=== PATIENT | female | born 1955 | race Caucasian/White ===

== ENCOUNTER 2020-04-19 09:01 | Outpatient (REF) | payer MEDICARE, SELFPAY ==
[2020-04-19 09:41] LABS: MANUAL DIFF FLAG NO
[2020-04-19 09:44] LABS: Basophils Absolute Auto 0.1 X10*3/uL (0.0-0.2); Basophils Percent Auto 1.3 % (0-2); Eosinophils Absolute Auto 0.2 X10*3/uL (0.0-0.4); Eosinophils Percent Auto 3.6 % (0-4); Hematocrit 40.7 % (37-47); Hemoglobin 13.3 g/dl (12.0-16.0); Imm Gran Abs Auto 0.01 X10*3/uL (0.00-0.03); Imm Gran Pct Auto 0.2 % (0.0-0.4); Lymphocytes Absolute Auto 0.8 X10*3/uL (1.2-4.9); Lymphocytes Percent Auto 16.8 % (20-40); Mean Corpuscular HGB Conc 32.7 g/dl (31.0-35.0); Mean Corpuscular Hemoglobin 32.5 pg (27.0-33.0); Mean Corpuscular Volume 99.5 fL (80-98); Mean Platelet Volume 10.4 fL (9.4-12.3); Monocytes Absolute Auto 0.4 X10*3/uL (0.1-1.2); Monocytes Percent Auto 8.5 % (2-11); Neutrophils Absolute Auto 3.3 X10*3/uL (2.0-8.3); Neutrophils Percent Auto 69.6 % (45-73); Platelet Count 285 X10*3/uL (160-400); Red Blood Count 4.09 X10*6/uL (4.20-5.50); Red Cell Distribution Width 13.3 % (11.0-16.0); White Blood Count 4.7 X10*3/uL (4.8-10.8)
[2020-04-19 10:47] LABS: Alanine Aminotransferase 12 U/L (0-31); Albumin Level 4.2 g/dL (3.5-5.0); Alkaline Phosphatase 90 U/L (39-117); Aspartate Amino Transferase 17 U/L (5-31); Bilirubin Direct 0.2 mg/dL (0.0-0.5); Bilirubin Total 0.4 mg/dL (0.0-1.0)
== END 2020-04-19 09:02 | disposition home or self-care (01) ==
LOC: HO.LABR 09:01
PROVIDERS: PCP Internal Medicine; Visit Provider Internal Medicine
DX: K50.80 Crohn's disease of both small and large intestine without complications (principal)
CPT/HCPCS: 36415; 80076; 85025

== ENCOUNTER → 2020-04-24 08:53 | Outpatient (BNVA) | payer MEDICARE, SELFPAY | PROVIDERS: PCP Internal Medicine; Referring Provider Internal Medicine; Visit Provider Urology | DX: N32.81 Overactive bladder (principal) | CPT/HCPCS: Q3014 ==

== ENCOUNTER 2020-05-15 10:43 | Outpatient (REF) | payer MEDICARE, SELFPAY ==
--- NOTE | 2020-05-15 | MM_ITS ---
EXAMINATION: MM SCREENING DIGITAL BREAST TOMOSYNTHESIS, BILATERAL CLINICAL INFORMATION: Screening. Asymptomatic. The lifetime risk of breast cancer based on the Tyrer-Cuzick Model is 4%. COMPARISON: Mammography: 04/04/2019, 03/11/2018, 03/06/2017, 02/26/2016 TECHNIQUE: Digital breast tomosynthesis is performed in both the craniocaudal and mediolateral oblique views along with computer-aided detection (CAD). Synthesized 2D images are generated from the tomosynthesis. FINDINGS: There are scattered areas of fibroglandular density (ACR BI-RADS breast composition Category b). There is fibronodular parenchymal pattern with some scattered stable asymmetries similar to prior exams. There is no developing density or interval mass or architectural abnormality. No abnormal calcifications. No significant changes from prior studies. MM/MM tomosynthesis screening BI IMPRESSION: No significant changes from prior studies. ASSESSMENT: BI-RADS 2: Benign RECOMMENDATION: Routine annual mammography screening. This patient's information was entered into a reminder system with a target due date for their next mammogram.
== END 2020-05-15 10:44 | disposition home or self-care (01) ==
LOC: HO.MAMMO 10:43
PROVIDERS: PCP Internal Medicine; Visit Provider Internal Medicine
DX: Z12.31 Encounter for screening mammogram for malignant neoplasm of breast (principal)
CPT/HCPCS: 77063; 77067

== ENCOUNTER 2020-08-01 08:03 | Outpatient (REF) | payer MEDICARE, SELFPAY ==
[2020-08-01 09:00] LABS: Basophils Absolute Auto 0.1 X10*3/uL (0.0-0.2); Basophils Percent Auto 0.9 % (0-2); Eosinophils Absolute Auto 0.1 X10*3/uL (0.0-0.4); Eosinophils Percent Auto 2.6 % (0-4); Hematocrit 38.5 % (37-47); Hemoglobin 12.8 g/dl (12.0-16.0); Imm Gran Abs Auto 0.01 X10*3/uL (0.00-0.03); Imm Gran Pct Auto 0.2 % (0.0-0.4); Lymphocytes Absolute Auto 0.7 X10*3/uL (1.2-4.9); Lymphocytes Percent Auto 12.2 % (20-40); MANUAL DIFF FLAG SCAN; Mean Corpuscular HGB Conc 33.2 g/dl (31.0-35.0); Mean Corpuscular Hemoglobin 34.4 pg (27.0-33.0); Mean Corpuscular Volume 103.5 fL (80-98); Mean Platelet Volume 10.3 fL (9.4-12.3); Monocytes Absolute Auto 0.5 X10*3/uL (0.1-1.2); Monocytes Percent Auto 8.4 % (2-11); Neutrophils Absolute Auto 4.1 X10*3/uL (2.0-8.3); Neutrophils Percent Auto 75.7 % (45-73); Platelet Count 274 X10*3/uL (160-400); Red Blood Count 3.72 X10*6/uL (4.20-5.50); Red Cell Distribution Width 13.2 % (11.0-16.0); SCAN SMEAR FLAG 1; White Blood Count 5.5 X10*3/uL (4.8-10.8)
[2020-08-01 09:31] LABS: Alanine Aminotransferase 9 U/L (0-31); Albumin Level 4.2 g/dL (3.5-5.0); Alkaline Phosphatase 100 U/L (39-117); Aspartate Amino Transferase 15 U/L (5-31); Bilirubin Direct 0.2 mg/dL (0.0-0.5); Bilirubin Total 0.5 mg/dL (0.0-1.0); Total Protein 6.7 g/dL (6.5-8.0)
[2020-08-01 09:42] LABS: SLIDE REVIEW VERIFIED
== END 2020-08-01 08:04 | disposition home or self-care (01) ==
LOC: HO.LABR 08:03
PROVIDERS: PCP Internal Medicine; Visit Provider Internal Medicine
DX: K50.80 Crohn's disease of both small and large intestine without complications (principal)
CPT/HCPCS: 36415; 80076; 85025

== ENCOUNTER 2020-10-01 08:54 | Outpatient (REF) | payer MEDICARE, SELFPAY ==
[2020-10-01 09:44] LABS: MANUAL DIFF FLAG NO
[2020-10-01 09:57] LABS: Basophils Absolute Auto 0.1 X10*3/uL (0.0-0.2); Basophils Percent Auto 1.5 % (0-2); Eosinophils Absolute Auto 0.2 X10*3/uL (0.0-0.4); Eosinophils Percent Auto 4.8 % (0-4); Hematocrit 39.6 % (37-47); Hemoglobin 13.1 g/dl (12.0-16.0); Imm Gran Abs Auto 0.02 X10*3/uL (0.00-0.03); Imm Gran Pct Auto 0.4 % (0.0-0.4); Lymphocytes Absolute Auto 0.9 X10*3/uL (1.2-4.9); Lymphocytes Percent Auto 17.9 % (20-40); Mean Corpuscular HGB Conc 33.1 g/dl (31.0-35.0); Mean Corpuscular Hemoglobin 33.6 pg (27.0-33.0); Mean Corpuscular Volume 101.5 fL (80-98); Mean Platelet Volume 10.1 fL (9.4-12.3); Monocytes Absolute Auto 0.5 X10*3/uL (0.1-1.2); Monocytes Percent Auto 10.8 % (2-11); Neutrophils Absolute Auto 3.1 X10*3/uL (2.0-8.3); Neutrophils Percent Auto 64.6 % (45-73); Platelet Count 300 X10*3/uL (160-400); Red Cell Distribution Width 13.2 % (11.0-16.0); White Blood Count 4.8 X10*3/uL (4.8-10.8)
[2020-10-01 10:16] LABS: Alanine Aminotransferase 11 U/L (0-31); Albumin Level 4.1 g/dL (3.5-5.0); Alkaline Phosphatase 95 U/L (39-117); Aspartate Amino Transferase 16 U/L (5-31); Bilirubin Direct 0.3 mg/dL (0.0-0.5); Bilirubin Total 0.6 mg/dL (0.0-1.0); Total Protein 6.7 g/dL (6.5-8.0)
== END 2020-10-01 08:55 | disposition home or self-care (01) ==
LOC: HO.LABR 08:54
PROVIDERS: PCP Internal Medicine; Visit Provider Internal Medicine
DX: K50.80 Crohn's disease of both small and large intestine without complications (principal)
CPT/HCPCS: 36415; 80076; 85025

== ENCOUNTER 2020-11-13 08:24 | Outpatient (REF) | payer MEDICARE, SELFPAY ==
--- NOTE | 2020-11-13 08:31 | ECG_ITS ---
Test Reason : PALPITATIONS Blood Pressure : / mmHG Vent. Rate : 079 BPM Atrial Rate : 079 BPM P-R Int : 176 ms QRS Dur : 076 ms QT Int : 378 ms P-R-T Axes : 068 046 060 degrees QTc Int : 433 ms Normal sinus rhythm Normal ECG No previous ECGs available Referred By: Tae Duarte Electronically Signed By:ANDRÉS BURNHAM
[2020-11-13 09:08] LABS: MANUAL DIFF FLAG NO
[2020-11-13 09:12] LABS: Basophils Absolute Auto 0.1 X10*3/uL (0.0-0.2); Basophils Percent Auto 1.1 % (0-2); Eosinophils Absolute Auto 0.2 X10*3/uL (0.0-0.4); Eosinophils Percent Auto 3.4 % (0-4); Hematocrit 38.2 % (37-47); Hemoglobin 12.9 g/dl (12.0-16.0); Imm Gran Abs Auto 0.02 X10*3/uL (0.00-0.03); Imm Gran Pct Auto 0.4 % (0.0-0.4); Lymphocytes Absolute Auto 0.7 X10*3/uL (1.2-4.9); Lymphocytes Percent Auto 14.3 % (20-40); Mean Corpuscular HGB Conc 33.8 g/dl (31.0-35.0); Mean Corpuscular Volume 100.8 fL (80-98); Mean Platelet Volume 10.2 fL (9.4-12.3); Monocytes Absolute Auto 0.4 X10*3/uL (0.1-1.2); Monocytes Percent Auto 8.6 % (2-11); Neutrophils Absolute Auto 3.4 X10*3/uL (2.0-8.3); Neutrophils Percent Auto 72.2 % (45-73); Platelet Count 290 X10*3/uL (160-400); Red Blood Count 3.79 X10*6/uL (4.20-5.50); Red Cell Distribution Width 13.8 % (11.0-16.0); White Blood Count 4.7 X10*3/uL (4.8-10.8)
[2020-11-13 09:24] LABS: Estimated Average Glucose 117 mg/dL; Hemoglobin A1C 129.8327 umol/L; Hemoglobin A1c % 5.7 %
[2020-11-13 09:52] LABS: Alanine Aminotransferase 12 U/L (0-31); Albumin Level 4.2 g/dL (3.5-5.0); Alkaline Phosphatase 84 U/L (39-117); Anion Gap 12 (12-20); Aspartate Amino Transferase 20 U/L (5-31); Bilirubin Total 0.6 mg/dL (0.0-1.0); Blood Urea Nitrogen 6 mg/dL (9-16); Calcium 9.2 mg/dL (8.4-10.2); Carbon Dioxide 26 mmol/L (22-29); Chloride 111 mmol/L (96-108); Cholesterol 133 mg/dL; Estimated Glomerular Filt Rate > 60; Glucose Random 94 mg/dL (60-115); HDL Cholesterol 70 mg/dL; LDL Cholesterol Calculated 50 mg/dl; Potassium 3.9 mmol/L (3.3-5.1); Sodium 145 mmol/L (135-145); Total Protein 6.5 g/dL (6.5-8.0); Triglycerides 68 mg/dL
[2020-11-13 10:02] LABS: Free T4 (Free Thyroxine) 0.85 ng/dL (0.71-1.85); Thyroid Stimulating Hormone 0.62 uIU/mL (0.32-4.0)
[2020-11-13 10:39] LABS: Vitamin B12 397 pg/mL (200-900)
[2020-11-13 10:51] LABS: Glucose Urine UA NEG (NEG); Leukocyte Esterase Urine 1+ (NEG); Nitrite Urine NEG (NEG); Specific Gravity - Urine 1.015 (1.005-1.025); Urine Blood 2+ (NEG); Urine Ketones NEG (NEG); Urine Protein NEG (NEG-TRACE)
[2020-11-13 10:54] LABS: Appearance Urine CLEAR; Color Urine YELLOW
[2020-11-13 11:21] LABS: Bacteria Urine 1+ /LPF; Calcium Oxalate Crystals Urine 1+ /LPF; Squamous Epithelial Cell Urine 1+ /LPF
== END 2020-11-13 08:25 | disposition home or self-care (01) ==
LOC: HO.LAB 08:24
PROVIDERS: PCP Internal Medicine; Visit Provider Internal Medicine
DX: R73.02 Impaired glucose tolerance (oral) (principal); R00.2 Palpitations; E78.00 Pure hypercholesterolemia, unspecified
CPT/HCPCS: 36415; 80053; 80061; 81001; 82306; 82607; 82746; 83036; 84439; 84443; 84550; 85025; 93005

== ENCOUNTER 2020-11-22 08:05 | Outpatient (REF) | payer MEDICARE, SELFPAY ==
--- NOTE | ~2020-11-22 | MM_ITS ---
EXAMINATION: BONE DENSITOMETRY CLINICAL INDICATION: Osteopenia. COMPARISON: Previous BD dated 07/16/2018 and baseline BD dated 09/29/2006. TECHNIQUE: Using a AudienceView DXA System (software version: 13.1) manufactured by [employer], dual-energy x-ray absorptiometry was performed of the lumbar spine and left hip. The images are of good technical quality. Summary results are attached. FINDINGS: AP SPINE L1-L4: Current: BMD 1.008 g/cm2, Z-score 0.5, T-score -1.4, osteopenia, 1.0% decrease from previous, 9.1% decrease from baseline (<5% change is not significant). Prior: BMD 1.018 g/cm2. Baseline: BMD 1.109 g/cm2. LEFT FEMUR, NECK: Current: BMD 0.714 g/cm2, Z-score -0.6, T-score -2.3, osteopenia. Prior: BMD 0.707 g/cm2. Baseline: BMD 0.847 g/cm2. LEFT FEMUR, TOTAL: Current: BMD 0.720 g/cm2, Z-score -0.8, T-score -2.3, osteopenia, 4.1% decrease from previous, 19.6% decrease from baseline (<5% change is not significant). Prior: BMD 0.751 g/cm2. Baseline: BMD 0.896 g/cm2. IDENTIFIED RISK FACTORS: Menopause, height loss, secondary osteoporosis, tobacco use (current smoker). HISTORY OF FRACTURE: None listed. MEDICATIONS: Calcium, vitamin D, Evista. MM/XR DEXA axial skeleton IMPRESSION: 1. DIAGNOSIS: Osteopenia based on the lowest T-score value of -2.3 in the femur neck and total femur applying World Health Organization criteria. 2. 10-YEAR FRACTURE RISK PREDICTION, FRAX: Major osteoporotic fracture (clinical spine, forearm, hip or shoulder) 12.9%. Hip fracture 4.2%. 3. Treatment Recommendations: NOF guidelines recommend consideration for treatment in postmenopausal women and men age 50 and older presenting with the following: -A hip or vertebral (clinical or morphometric) fracture. -T-score less than or equal to -2.5 at the femoral neck or spine after appropriate evaluation to exclude secondary causes. -Low bone mass at the hip or spine and a 10-year fracture probability by FRAX of greater than or equal to 3% for hip fracture or greater than or equal to 20% for major osteoporotic fracture based on the [place] adapted WHO algorithm. 4. Other Recommendations: All treatment decisions require clinical judgment and consideration of individual patient factors, including patient preferences, comorbidities, previous drug use, risk factors not captured in the FRAX model (e.g. frailty, falls, vitamin D deficiency, increased bone turnover, interval significant decline in bone density) and possible under or overestimation of fracture risk by FRAX. Additional medical evaluation for secondary cause of low bone mineral density may be appropriate. FUTURE SCAN RECOMMENDATION: People with diagnosed cases of osteoporosis or at high risk for fracture should have regular bone mineral density tests. For patients eligible for Medicare, routine testing is allowed once every 2 years. The testing frequency can be increased to one year for patients who have rapidly progressing disease, those who are receiving or discontinuing medical therapy to restore bone mass, or have additional risk factors.
== END 2020-11-22 08:06 | disposition home or self-care (01) ==
LOC: HO.MAMMO 08:05
PROVIDERS: Visit Provider Internal Medicine
DX: Z13.820 Encounter for screening for osteoporosis (principal); M85.89 Other specified disorders of bone density and structure, multiple sites; F17.200 Nicotine dependence, unspecified, uncomplicated; Z78.0 Asymptomatic menopausal state; Z79.899 Other long term (current) drug therapy
CPT/HCPCS: 77080

== ENCOUNTER 2021-01-04 08:19 | Outpatient (REF) | payer MEDICARE, SELFPAY ==
[2021-01-04 10:13] LABS: MANUAL DIFF FLAG NO
[2021-01-04 10:21] LABS: Basophils Absolute Auto 0.1 X10*3/uL (0.0-0.2); Basophils Percent Auto 1.6 % (0-2); Eosinophils Absolute Auto 0.2 X10*3/uL (0.0-0.4); Eosinophils Percent Auto 4.1 % (0-4); Hematocrit 39.1 % (37-47); Imm Gran Abs Auto 0.01 X10*3/uL (0.00-0.03); Imm Gran Pct Auto 0.2 % (0.0-0.4); Lymphocytes Percent Auto 19.8 % (20-40); Mean Corpuscular HGB Conc 33.2 g/dl (31.0-35.0); Mean Corpuscular Hemoglobin 34.1 pg (27.0-33.0); Mean Corpuscular Volume 102.6 fL (80-98); Mean Platelet Volume 10.8 fL (9.4-12.3); Monocytes Absolute Auto 0.5 X10*3/uL (0.1-1.2); Monocytes Percent Auto 9.3 % (2-11); Neutrophils Absolute Auto 3.2 X10*3/uL (2.0-8.3); Platelet Count 298 X10*3/uL (160-400); Red Blood Count 3.81 X10*6/uL (4.20-5.50); Red Cell Distribution Width 14.4 % (11.0-16.0); White Blood Count 4.9 X10*3/uL (4.8-10.8)
[2021-01-04 10:53] LABS: Alanine Aminotransferase 8 U/L (0-31); Albumin Level 4.1 g/dL (3.5-5.0); Alkaline Phosphatase 86 U/L (39-117); Aspartate Amino Transferase 14 U/L (5-31); Bilirubin Direct 0.2 mg/dL (0.0-0.5); Bilirubin Total 0.5 mg/dL (0.0-1.0); Total Protein 6.7 g/dL (6.5-8.0)
== END 2021-01-04 08:20 | disposition home or self-care (01) ==
LOC: HO.LABR 08:19
PROVIDERS: PCP Internal Medicine; Visit Provider Internal Medicine
DX: K50.80 Crohn's disease of both small and large intestine without complications (principal)
CPT/HCPCS: 36415; 80076; 85025

== ENCOUNTER 2021-02-05 09:31 | Outpatient (REF) | payer MEDICARE, SELFPAY ==
[2021-02-05 10:50] LABS: MANUAL DIFF FLAG NO
[2021-02-05 11:03] LABS: Basophils Absolute Auto 0.1 X10*3/uL (0.0-0.2); Basophils Percent Auto 1.6 % (0-2); Eosinophils Absolute Auto 0.2 X10*3/uL (0.0-0.4); Eosinophils Percent Auto 3.4 % (0-4); Hematocrit 38.5 % (37-47); Imm Gran Abs Auto 0.03 X10*3/uL (0.00-0.03); Imm Gran Pct Auto 0.6 % (0.0-0.4); Lymphocytes Absolute Auto 0.9 X10*3/uL (1.2-4.9); Lymphocytes Percent Auto 17.9 % (20-40); Mean Corpuscular HGB Conc 33.8 g/dl (31.0-35.0); Mean Corpuscular Hemoglobin 34.8 pg (27.0-33.0); Mean Corpuscular Volume 102.9 fL (80-98); Mean Platelet Volume 10.9 fL (9.4-12.3); Monocytes Absolute Auto 0.6 X10*3/uL (0.1-1.2); Monocytes Percent Auto 10.9 % (2-11); Neutrophils Absolute Auto 3.3 X10*3/uL (2.0-8.3); Neutrophils Percent Auto 65.6 % (45-73); Platelet Count 243 X10*3/uL (160-400); Red Blood Count 3.74 X10*6/uL (4.20-5.50); Red Cell Distribution Width 13.8 % (11.0-16.0)
[2021-02-05 11:44] LABS: Alanine Aminotransferase 10 U/L (0-31); Albumin Level 4.2 g/dL (3.5-5.0); Alkaline Phosphatase 83 U/L (39-117); Aspartate Amino Transferase 16 U/L (5-31); Bilirubin Direct 0.2 mg/dL (0.0-0.5); Bilirubin Total 0.5 mg/dL (0.0-1.0); Total Protein 6.7 g/dL (6.5-8.0)
[2021-02-05 12:35] LABS: Appearance Urine CLEAR; Color Urine YELLOW; Glucose Urine UA NEG (NEG); Leukocyte Esterase Urine TRACE (NEG); Nitrite Urine NEG (NEG); PH 5.5 (5.0-8.0); Specific Gravity - Urine <= 1.005 (1.005-1.025); Urine Blood 1+ (NEG); Urine Ketones NEG (NEG); Urine Protein NEG (NEG-TRACE)
[2021-02-05 13:03] LABS: Bacteria Urine 1+ /LPF; RBC Urine 0-2 /HPF (0); Squamous Epithelial Cell Urine TRACE /LPF
== END 2021-02-05 09:32 | disposition home or self-care (01) ==
LOC: HO.LABR 09:31
PROVIDERS: PCP Internal Medicine; Visit Provider Internal Medicine
DX: K50.80 Crohn's disease of both small and large intestine without complications (principal); R73.02 Impaired glucose tolerance (oral); E53.8 Deficiency of other specified B group vitamins
CPT/HCPCS: 36415; 80076; 81001; 85025

== ENCOUNTER 2021-03-07 12:43 | Outpatient (REF) | payer MEDICARE, SELFPAY ==
[2021-03-07 09:13] LABS: MANUAL DIFF FLAG NO
[2021-03-07 10:43] LABS: Basophils Absolute Auto 0.1 X10*3/uL (0.0-0.2); Basophils Percent Auto 1.6 % (0-2); Eosinophils Absolute Auto 0.2 X10*3/uL (0.0-0.4); Eosinophils Percent Auto 3.7 % (0-4); Hematocrit 38.4 % (37-47); Hemoglobin 12.8 g/dl (12.0-16.0); Imm Gran Abs Auto 0.02 X10*3/uL (0.00-0.03); Imm Gran Pct Auto 0.5 % (0.0-0.4); Lymphocytes Absolute Auto 0.6 X10*3/uL (1.2-4.9); Lymphocytes Percent Auto 13.5 % (20-40); Mean Corpuscular HGB Conc 33.3 g/dl (31.0-35.0); Mean Corpuscular Hemoglobin 34.7 pg (27.0-33.0); Mean Corpuscular Volume 104.1 fL (80-98); Mean Platelet Volume 10.6 fL (9.4-12.3); Monocytes Absolute Auto 0.5 X10*3/uL (0.1-1.2); Neutrophils Percent Auto 69.7 % (45-73); Platelet Count 250 X10*3/uL (160-400); Red Blood Count 3.69 X10*6/uL (4.20-5.50); Red Cell Distribution Width 13.7 % (11.0-16.0); White Blood Count 4.3 X10*3/uL (4.8-10.8)
[2021-03-07 10:53] LABS: Appearance Urine CLEAR; Color Urine YELLOW; Glucose Urine UA NEG (NEG); Leukocyte Esterase Urine NEG (NEG); Nitrite Urine NEG (NEG); Specific Gravity - Urine <= 1.005 (1.005-1.025); Urine Blood 2+ (NEG); Urine Ketones NEG (NEG); Urine Protein NEG (NEG-TRACE)
[2021-03-07 10:59] LABS: Alanine Aminotransferase 12 U/L (0-31); Albumin Level 4.2 g/dL (3.5-5.0); Alkaline Phosphatase 86 U/L (39-117); Aspartate Amino Transferase 17 U/L (5-31); Bilirubin Direct 0.3 mg/dL (0.0-0.5); Bilirubin Total 0.6 mg/dL (0.0-1.0); Total Protein 6.7 g/dL (6.5-8.0)
[2021-03-07 11:18] LABS: Mucus Urine TRACE /LPF; Squamous Epithelial Cell Urine TRACE /LPF; WBC Urine 0 /HPF (0-4)
[2021-03-07 11:41] LABS: Erythrocyte Sedimentation Rate 7 MM/HR (0-20)
== END 2021-03-07 12:44 | disposition home or self-care (01) ==
LOC: HO.LAB 12:43
PROVIDERS: PCP Internal Medicine; Visit Provider Internal Medicine
DX: K50.80 Crohn's disease of both small and large intestine without complications (principal)
CPT/HCPCS: 36415; 80076; 81001; 85025; 85652; 86140

== ENCOUNTER 2021-04-08 09:05 | Outpatient (REF) | payer MEDICARE, SELFPAY ==
[2021-04-08 09:36] LABS: MANUAL DIFF FLAG NO
[2021-04-08 10:31] LABS: Basophils Absolute Auto 0.1 X10*3/uL (0.0-0.2); Basophils Percent Auto 1.4 % (0-2); Eosinophils Absolute Auto 0.2 X10*3/uL (0.0-0.4); Eosinophils Percent Auto 3.2 % (0-4); Hematocrit 38.6 % (37.0-47.0); Hemoglobin 12.8 g/dl (12.0-16.0); Imm Gran Abs Auto 0.02 X10*3/uL (0.00-0.03); Imm Gran Pct Auto 0.3 % (0.0-0.4); Lymphocytes Absolute Auto 0.9 X10*3/uL (1.2-4.9); Mean Corpuscular HGB Conc 33.2 g/dl (31.0-35.0); Mean Corpuscular Volume 105.5 fL (80.0-98.0); Mean Platelet Volume 10.4 fL (9.4-12.3); Monocytes Absolute Auto 0.5 X10*3/uL (0.1-1.2); Monocytes Percent Auto 8.4 % (2-11); Neutrophils Absolute Auto 4.2 x10*3/uL (2.0-8.3); Neutrophils Percent Auto 71.7 % (45-73); Platelet Count 273 X10*3/uL (160-400); Red Blood Count 3.66 X10*6/uL (4.20-5.50); Red Cell Distribution Width 13.4 % (11.0-16.0); White Blood Count 5.9 X10*3/uL (4.8-10.8)
[2021-04-08 10:59] LABS: Alanine Aminotransferase 11 U/L (0-31); Alkaline Phosphatase 90 U/L (39-117); Aspartate Amino Transferase 16 U/L (5-31); Bilirubin Direct 0.2 mg/dL (0.0-0.5); Bilirubin Total 0.5 mg/dL (0.0-1.0); Total Protein 6.5 g/dL (6.5-8.0)
== END 2021-04-08 09:06 | disposition home or self-care (01) ==
LOC: HO.LABR 09:05
PROVIDERS: PCP Internal Medicine; Visit Provider Internal Medicine
DX: K50.80 Crohn's disease of both small and large intestine without complications (principal)
CPT/HCPCS: 36415; 80076; 85025

== ENCOUNTER 2021-04-30 10:03 | Outpatient (REF) | payer MEDICARE, SELFPAY ==
--- NOTE | ~2021-04-30 | CT_ITS ---
EXAMINATION: CT CHEST SCREENING CLINICAL INFORMATION: Nicotine dependence. COMPARISON: CT chest 01/25/2019 TECHNIQUE: Multidetector volumetric CT imaging of the chest is performed without contrast using low-dose technique. Additional 2-D coronal and sagittal reformatted images and axial 3-D maximum intensity projection (MIP) images are generated on the CT workstation. This CT examination was performed using dose optimization techniques as appropriate, variously including the following: *Automated exposure control *Adjustment of mA and/or kV according to patient size (this includes techniques or standardized protocols for targeted exams where dose is matched to indication/reason for exam; i.e. extremities or head) *Use of iterative reconstruction technique DLP: 39 mGy-cm FINDINGS: LUNGS: The lungs are expanded and clear of acute process. There are subcentimeter 1 mm nodules in the right upper lobe, left lower lobe and left upper lobe. Previously visualized punctate nodule in the left oblique fissure has resolved. A 2 mm subpleural nodule left lower lobe posterior basal segment is stable. No new nodules or ground-glass density seen. MEDIASTINUM: The thyroid lobes are symmetrical and normal. The central trachea and the bronchi are widely patent. Heart size and the great vessels are normal caliber. There are no coronary artery calcifications seen. There is no pericardial effusion. No abnormal sized mediastinal lymph nodes seen. PLEURA: There is no pleural effusion. No pleural mass or thickening. AXILLA: No lymphadenopathy. UPPER ABDOMEN: Visualized liver, spleen, pancreas, and bilateral adrenal glands are unremarkable. The gallbladder has been surgically removed. OSSEOUS STRUCTURES: There is mild ventral spondylosis dorsal spine. No lytic process. CT/CT lung screening IMPRESSION: Scattered small subcentimeter nodules compared to previous study. No new nodules seen. ASSESSMENT: Lung-RADS category 2: Benign. RECOMMENDATION: Low-dose annual CT chest.
== END 2021-04-30 10:04 | disposition home or self-care (01) ==
LOC: HO.CT 10:03
PROVIDERS: PCP Internal Medicine; Visit Provider Physician Assistant Medical
DX: Z12.2 Encounter for screening for malignant neoplasm of respiratory organs (principal); F17.210 Nicotine dependence, cigarettes, uncomplicated; N32.81 Overactive bladder
CPT/HCPCS: 51798; 71271; 99212

== ENCOUNTER 2021-05-08 08:40 | Outpatient (REF) | payer MEDICARE, SELFPAY ==
[2021-05-08 10:36] LABS: Appearance Urine CLEAR; Color Urine STRAW; Glucose Urine UA NEG (NEG); Leukocyte Esterase Urine NEG (NEG); Nitrite Urine NEG (NEG); PH 5.5 (5.0-8.0); Specific Gravity - Urine <= 1.005 (1.005-1.025); Urine Blood 1+ (NEG); Urine Ketones NEG (NEG); Urine Protein NEG (NEG-TRACE)
[2021-05-08 11:07] LABS: Squamous Epithelial Cell Urine TRACE /LPF; WBC Urine 0 /HPF (0-4)
== END 2021-05-08 08:41 | disposition home or self-care (01) ==
LOC: HO.LAB 08:40
PROVIDERS: Visit Provider Internal Medicine
DX: R73.02 Impaired glucose tolerance (oral) (principal); E53.8 Deficiency of other specified B group vitamins
CPT/HCPCS: 81001

== ENCOUNTER 2021-05-28 10:12 | Outpatient (REF) | payer MEDICARE, SELFPAY ==
--- NOTE | ~2021-05-28 | MM_ITS ---
EXAMINATION: MM SCREENING DIGITAL BREAST TOMOSYNTHESIS, BILATERAL CLINICAL INFORMATION: Screening. Asymptomatic. The lifetime risk of breast cancer based on the Tyrer-Cuzick Model is 3%. COMPARISON: Mammography: 05/15/2020, 04/04/2019, 03/11/2018, 03/06/2017, 02/26/2016 TECHNIQUE: Digital breast tomosynthesis is performed in both the craniocaudal and mediolateral oblique views along with computer-aided detection (CAD). Synthesized 2D images are generated from the tomosynthesis. Additional right MLO view is provided. FINDINGS: There are scattered areas of fibroglandular density (ACR BI-RADS breast composition Category b). There are no significant masses, abnormal calcifications, or other abnormalities. Some punctate probable dermal calcifications again noted medial right breast on MLO view. The axilla and skin contours are unremarkable. No significant changes from prior studies. MM/MM tomosynthesis screening BI IMPRESSION: No mammographic evidence of malignancy. ASSESSMENT: BI-RADS 2: Benign RECOMMENDATION: Routine annual mammography screening. This patient's information was entered into a reminder system with a target due date for their next mammogram.
== END 2021-05-28 10:13 | disposition home or self-care (01) ==
LOC: HO.MAMMO 10:12
PROVIDERS: Visit Provider Internal Medicine
DX: Z12.31 Encounter for screening mammogram for malignant neoplasm of breast (principal)
CPT/HCPCS: 77063; 77067

== ENCOUNTER 2021-06-11 08:38 | Outpatient (REF) | payer MEDICARE, SELFPAY ==
[2021-06-11 08:55] LABS: MANUAL DIFF FLAG NO
[2021-06-11 09:37] LABS: Basophils Absolute Auto 0.1 X10*3/uL (0.0-0.2); Basophils Percent Auto 1.6 % (0-2); Eosinophils Absolute Auto 0.2 X10*3/uL (0.0-0.4); Eosinophils Percent Auto 3.8 % (0-4); Hematocrit 41.3 % (37.0-47.0); Hemoglobin 13.5 g/dl (12.0-16.0); Imm Gran Abs Auto 0.02 X10*3/uL (0.00-0.03); Imm Gran Pct Auto 0.4 % (0.0-0.4); Lymphocytes Absolute Auto 0.6 X10*3/uL (1.2-4.9); Lymphocytes Percent Auto 12.1 % (20-40); Mean Corpuscular HGB Conc 32.7 g/dl (31.0-35.0); Mean Corpuscular Hemoglobin 34.3 pg (27.0-33.0); Mean Corpuscular Volume 104.8 fL (80.0-98.0); Mean Platelet Volume 10.4 fL (9.4-12.3); Monocytes Absolute Auto 0.5 X10*3/uL (0.1-1.2); Monocytes Percent Auto 10.3 % (2-11); Neutrophils Absolute Auto 3.6 x10*3/uL (2.0-8.3); Neutrophils Percent Auto 71.8 % (45-73); Platelet Count 257 X10*3/uL (160-400); Red Blood Count 3.94 X10*6/uL (4.20-5.50)
[2021-06-11 09:52] LABS: Appearance Urine CLEAR; Color Urine STRAW; Glucose Urine UA NEG (NEG); Leukocyte Esterase Urine NEG (NEG); Nitrite Urine NEG (NEG); Specific Gravity - Urine <= 1.005 (1.005-1.025); Urine Blood 1+ (NEG); Urine Ketones NEG (NEG); Urine Protein NEG (NEG-TRACE)
[2021-06-11 09:59] LABS: Alanine Aminotransferase 15 U/L (0-31); Albumin Level 4.1 g/dL (3.5-5.0); Alkaline Phosphatase 86 U/L (39-117); Aspartate Amino Transferase 16 U/L (5-31); Bilirubin Direct 0.2 mg/dL (0.0-0.5); Bilirubin Total 0.4 mg/dL (0.0-1.0); Total Protein 6.9 g/dL (6.5-8.0)
[2021-06-11 10:47] LABS: WBC Urine 0 /HPF (0-4)
== END 2021-06-11 08:39 | disposition home or self-care (01) ==
LOC: HO.LAB 08:38
PROVIDERS: Absent Provider Internal Medicine; PCP Internal Medicine; Visit Provider Internal Medicine
DX: K50.80 Crohn's disease of both small and large intestine without complications (principal)
CPT/HCPCS: 36415; 80076; 81001; 85025

== ENCOUNTER 2021-07-12 08:55 | Outpatient (REF) | payer MEDICARE, SELFPAY ==
[2021-07-12 09:16] LABS: MANUAL DIFF FLAG NO
[2021-07-12 10:10] LABS: Basophils Absolute Auto 0.1 X10*3/uL (0.0-0.2); Basophils Percent Auto 1.2 % (0-2); Eosinophils Absolute Auto 0.2 X10*3/uL (0.0-0.4); Eosinophils Percent Auto 4.5 % (0-4); Hematocrit 41.3 % (37.0-47.0); Hemoglobin 13.7 g/dl (12.0-16.0); Imm Gran Abs Auto 0.01 X10*3/uL (0.00-0.03); Imm Gran Pct Auto 0.2 % (0.0-0.4); Lymphocytes Absolute Auto 0.8 X10*3/uL (1.2-4.9); Lymphocytes Percent Auto 15.4 % (20-40); Mean Corpuscular HGB Conc 33.2 g/dl (31.0-35.0); Mean Corpuscular Hemoglobin 34.2 pg (27.0-33.0); Mean Platelet Volume 10.6 fL (9.4-12.3); Monocytes Absolute Auto 0.6 X10*3/uL (0.1-1.2); Monocytes Percent Auto 12.5 % (2-11); Neutrophils Absolute Auto 3.2 x10*3/uL (2.0-8.3); Neutrophils Percent Auto 66.2 % (45-73); Platelet Count 263 X10*3/uL (160-400); Red Blood Count 4.01 X10*6/uL (4.20-5.50); Red Cell Distribution Width 13.2 % (11.0-16.0); White Blood Count 4.9 X10*3/uL (4.8-10.8)
[2021-07-12 10:12] LABS: Appearance Urine CLEAR; Color Urine STRAW; Glucose Urine UA NEG (NEG); Leukocyte Esterase Urine NEG (NEG); Nitrite Urine NEG (NEG); Specific Gravity - Urine <= 1.005 (1.005-1.025); Urine Blood 1+ (NEG); Urine Ketones NEG (NEG); Urine Protein NEG (NEG-TRACE)
[2021-07-12 10:24] LABS: Alanine Aminotransferase 11 U/L (0-31); Albumin Level 4.2 g/dL (3.5-5.0); Alkaline Phosphatase 95 U/L (39-117); Aspartate Amino Transferase 24 U/L (5-31); Bilirubin Direct 0.2 mg/dL (0.0-0.5); Bilirubin Total 0.5 mg/dL (0.0-1.0)
[2021-07-12 10:58] LABS: Squamous Epithelial Cell Urine 1+ /LPF
[2021-07-12 11:00] LABS: RBC Urine 0-2 /HPF (0); WBC Urine 0 /HPF (0-4)
== END 2021-07-12 08:56 | disposition home or self-care (01) ==
LOC: HO.LABR 08:55
PROVIDERS: PCP Internal Medicine; Visit Provider Internal Medicine
DX: K50.80 Crohn's disease of both small and large intestine without complications (principal); R73.02 Impaired glucose tolerance (oral)
CPT/HCPCS: 36415; 80076; 81001; 85025

== ENCOUNTER 2021-07-25 05:23 | Emergency (ER) | payer MEDICARE, SELFPAY ==
--- NOTE | 2021-07-25 05:44 | ED_ITS ---
HPI - Skin/Abscess/Foreign Bdy General Chief complaint: Extremity Problem Stated complaint: Skin Redness Time Seen by Provider: 07/25/21 05:44 Source: patient Mode of arrival: ambulatory Limitations: no limitations History of Present Illness HPI narrative: 2 days ago patient tried to pop a pimple under her lip, no with right lower lip swelling, erythema and pain MD complaint: other (lip swelling) Onset (ago): day(s) Tetanus up to date: yes Severity: severe Quality: aching Pain Consistency: constant Relieving factors: none Associated symptoms: chills Related Data Home Medications Medication Instructions Recorded Confirmed azathioprine 50 mg tablet 100 mg PO DAILY 04/24/20 10/30/20 fluticasone propionate 50 INTRANASAL 04/24/20 10/30/20 mcg/actuation nasal spray,suspension omeprazole 20 mg capsule,delayed 20 mg PO DAILY 04/24/20 10/30/20 release triamcinolone acetonide 0.5 % applic TOPICAL BID 04/24/20 10/30/20 topical cream varicella-zoster glycoE [id number] IM 04/24/20 10/30/20 adj(PF) 50 mcg/0.5 mL IM susp, kit betamethasone dipropionate 0.05 % 1 appl TOPICAL DAILY PRN 06/07/20 10/30/20 topical cream mesalamine 500 mg mg PO BID cap 06/07/20 10/30/20 capsule,controlled release dicyclomine 10 mg capsule mg PO 04/30/21 fluocinonide 0.05 % topical ml TOPICAL 04/30/21 solution Previous Rx's Medication Instructions Recorded albuterol sulfate 90 mcg/actuation 2 puff PO Q4H PRN #8.5 g 03/19/20 aerosol inhaler oxybutynin chloride 5 mg 5 mg PO DAILY PRN #90 tab 07/25/20 tablet,extended release 24 hr cyanocobalamin (vitamin B-12) 1,000 mcg IM Q4W 90 Days #4 ml 11/22/20 1,000 mcg/mL injection solution lorazepam 0.5 mg tablet 0.5 mg PO DAILY #30 tab 01/04/21 ciprofloxacin HCl 250 mg tablet 250 mg PO BID 5 Days #10 tab 02/07/21 (Cipro) tramadol 50 mg tablet 50 mg PO DAILY 90 Days #90 tab 02/15/21 raloxifene 60 mg tablet 60 mg PO DAILY #90 tab 03/12/21 buspirone 10 mg tablet 10 mg PO DAILY #90 tab 05/20/21 Allergies Allergy/AdvReac Type Severity Reaction Status Date / Time Darvon Allergy Unknown oral Verified 04/30/21 09:20 swelling doxycycline [DOXYCYCLINE] Allergy Unknown SEVERE Verified 04/30/21 09:20 DIARRHEA Doxycycline Hyclate Allergy Unknown diarrhea, Verified 04/30/21 09:20 severe diarrhea tetracycline [TETRACYCLINE] Allergy Unknown ITCHING, Verified 04/30/21 09:20 unknown From DARVON Allergy Unknown TONGUE Uncoded 04/30/21 09:20 SWELLING Review of Systems Constitutional: Constitutional: Reports no additional constitutional compl aints Eyes: Eyes: Reports no additional eye complaints ENT: Denies dizziness Cardiovascular: Cardiovascular: Reports no additional cardiovascular complaints Respiratory: Respiratory: Reports as per HPI Gastrointestinal: Gastrointestinal: Reports no additional gastrointestinal complaints Genitourinary: Genitourinary: Reports no additional female genitourinary complaints Musculoskeletal: Musculoskeletal: Reports no additional musculoskeletal co mplaints Integumentary/Breasts: Skin/Breast: Denies rash Neurologic: Reports system reviewed and no additional complaints, except as documented, Denies dizziness and Denies Sensory deficit (Neuro) Psychiatric: Psychiatric: Denies anxiety PMFSH Past Medical History Medical History Anemia Anxiety and depression Asthma Basal cell carcinoma Crohn's disease GERD (gastroesophageal reflux disease) Impaired glucose tolerance Osteopenia Peptic ulcer disease Renal calculi Tobacco abuse Vitamin D deficiency Surgical History H/O tubal ligation History of cholecystectomy History of lumpectomy of left breast Hx of appendectomy S/P small bowel resection Social History Social History Alcohol intake: current Alcohol intake frequency: a few times a month Patient Tobacco Use Status: Current everyday Tobacco user Tobacco use type: Cigarette Cigarette Packs Per Day: 1 Second Hand Smoke Exposure: Yes Advance Directives: No Physical Exam Vital Signs: Vital Signs: Last Vital Signs Temp 97.5 F 07/25/21 05:46 Pulse 110 H 07/25/21 05:46 Resp 12 07/25/21 05:46 BP 178/98 H 07/25/21 05:46 Pulse Ox 100 07/25/21 05:46 BMI result Body Mass Index 21.6 Const: General: healthy appearing Nutritional Appearance: average body habitus Orientation/consciousness: oriented to person and patient oriented x3 Limitations: no limitations HENMT: Other: Right lower lip with erythema and swelling and increased pain, no abscess Head: Yes normal to inspection Ears: external ears normal General nose exam: Normal external nose present Mouth: Normal oral and palatal mucosa present and oropharynx normal Throat: Yes posterior oropharynx normal Eyes: General: appearance normal, both eyes and all related structures Neck: Other: supple Neck: Yes normal visual inspection Chest: Chest palpation & inspection: normal inspection of the chest Resp: Auscultation: clear to auscultation bilaterally Cardio: Jugular venous distension: no JVD Rate: regular rate Rhythm: regular rhythm Heart sounds: S1 normal heart sound present and S2 normal heart sound present GI: Inspection: Yes normal to inspection Palpation (GI): Soft to palpation, nontender and No hepatosplenomegaly present Auscultation: normal bowel sounds : General: Yes no CVA tenderness Back/Spine/Pelvis: Back: no CVA tenderness Skin: General skin exam: no rashes or lesions noted Neuro: General: oriented to person and patient oriented x3 Cranial nerves: Yes CN's II-XII intact bilaterally Motor exam (neuro): 5/5 motor strength present throughout Sensory Exam: No Sensory deficit (Neuro) Extrem: General: Yes normal to inspection Psych: Appearance: grossly normal Course Reevaluation(s) Reevaluation #1: Will start patient on augmentin and warm soaks for lip infection Time: 05:48 Discharge Plan Discharge Clinical Impression: Infection of lip Patient Disposition: Home, Self-Care Additional Instructions: warm soaks to lip frequently Prescriptions: No Action albuterol sulfate 90 mcg/actuation HFA aerosol inhaler 2 puff PO Q4H PRN (Reason: shortness of breath or wheezing) Qty: 8.5 0RF oxybutynin chloride 5 mg tablet extended release 24hr 5 mg PO DAILY PRN (Reason: bladder spasm) Qty: 90 0RF cyanocobalamin (vitamin B-12) 1,000 mcg/mL solution 1,000 mcg IM Q4W 90 Days Qty: 4 3RF lorazepam 0.5 mg tablet 0.5 mg PO DAILY Qty: 30 1RF ciprofloxacin HCl [Cipro] 250 mg tablet 250 mg PO BID 5 Days Qty: 10 0RF tramadol 50 mg tablet 50 mg PO DAILY 90 Days Qty: 90 1RF raloxifene 60 mg tablet 60 mg PO DAILY Qty: 90 2RF buspirone 10 mg tablet 10 mg PO DAILY Qty: 90 2RF betamethasone dipropionate 0.05 % cream 1 appl topical DAILY PRN0RF omeprazole 20 mg capsule,delayed release(DR/EC) 20 mg PO DAILY 0RF Shingrix (PF) 50 mcg/0.5 mL suspension for reconstitution IM 0RF triamcinolone acetonide 0.5 % cream topical BID 0RF azathioprine 50 mg tablet 100 mg PO DAILY 0RF fluticasone propionate 50 mcg/actuation spray,suspension intranasal 0RF mesalamine 500 mg capsule, extended release PO BID 0RF Referrals: Po,Tae Méndez MD [Primary Care Provider] - 1 week
[2021-07-25 05:46] VITALS: BP 178/98; PULSE 110; RESP 12; TEMP 36.4; O2SAT 100; BMI 21.6
[2021-07-25] MEDS: Amoxicillin/Potassium Clav 875 MG TABLET PO (05:57)
== END 2021-07-25 06:00 | disposition home or self-care (01) ==
PROVIDERS: Emergency Provider Emergency Medicine; PCP Internal Medicine
DX: K13.0 Diseases of lips (principal); F17.200 Nicotine dependence, unspecified, uncomplicated
CPT/HCPCS: 99283

== ENCOUNTER 2021-07-27 17:00 | Emergency (ER) | payer MEDICARE, SELFPAY ==
[2021-07-27 17:07] VITALS: BP 170/81; PULSE 88; RESP 19; TEMP 36.9; O2SAT 95; BMI 21.6
--- NOTE | 2021-07-27 20:08 | ED.SKABFB ---
HPI - Skin/Abscess/Foreign Bdy General Chief complaint: Skin/Abscess/Foreign Body Stated complaint: lip infection Time Seen by Provider: 07/27/21 17:37 Source: patient Mode of arrival: ambulatory Limitations: no limitations History of Present Illness HPI narrative: Patient been having swelling of the right side of lower lip for last 5 days after patient squeezed a pimple, was seen here 2 days ago for same started on Augmentin patient noticed swelling is getting bigger and has some pus discharge no no fever no chills patient does get pimples on the face very often Related Data Home Medications Medication Instructions Recorded Confirmed azathioprine 50 mg tablet 100 mg PO DAILY 04/24/20 10/30/20 fluticasone propionate 50 INTRANASAL 04/24/20 10/30/20 mcg/actuation nasal spray,suspension omeprazole 20 mg capsule,delayed 20 mg PO DAILY 04/24/20 10/30/20 release triamcinolone acetonide 0.5 % applic TOPICAL BID 04/24/20 10/30/20 topical cream varicella-zoster glycoE [id number] IM 04/24/20 10/30/20 adj(PF) 50 mcg/0.5 mL IM susp, kit betamethasone dipropionate 0.05 % 1 appl TOPICAL DAILY PRN 06/07/20 10/30/20 topical cream mesalamine 500 mg mg PO BID cap 06/07/20 10/30/20 capsule,controlled release dicyclomine 10 mg capsule mg PO 04/30/21 fluocinonide 0.05 % topical ml TOPICAL 04/30/21 solution Previous Rx's Medication Instructions Recorded albuterol sulfate 90 mcg/actuation 2 puff PO Q4H PRN #8.5 g 03/19/20 aerosol inhaler oxybutynin chloride 5 mg 5 mg PO DAILY PRN #90 tab 07/25/20 tablet,extended release 24 hr cyanocobalamin (vitamin B-12) 1,000 mcg IM Q4W 90 Days #4 ml 11/22/20 1,000 mcg/mL injection solution lorazepam 0.5 mg tablet 0.5 mg PO DAILY #30 tab 01/04/21 ciprofloxacin HCl 250 mg tablet 250 mg PO BID 5 Days #10 tab 02/07/21 (Cipro) tramadol 50 mg tablet 50 mg PO DAILY 90 Days #90 tab 02/15/21 raloxifene 60 mg tablet 60 mg PO DAILY #90 tab 03/12/21 buspirone 10 mg tablet 10 mg PO DAILY #90 tab 05/20/21 naproxen 500 mg tablet (Naprosyn) 500 mg PO BID #20 tab 07/25/21 sulfamethoxazole 800 1 tab PO BID #20 tab 07/27/21 mg-trimethoprim 160 mg tablet (Bactrim DS) Allergies Allergy/AdvReac Type Severity Reaction Status Date / Time Darvon Allergy Unknown oral Verified 04/30/21 09:20 swelling doxycycline [DOXYCYCLINE] Allergy Unknown SEVERE Verified 04/30/21 09:20 DIARRHEA Doxycycline Hyclate Allergy Unknown diarrhea, Verified 04/30/21 09:20 severe diarrhea tetracycline [TETRACYCLINE] Allergy Unknown ITCHING, Verified 04/30/21 09:20 unknown From DARVON Allergy Unknown TONGUE Uncoded 04/30/21 09:20 SWELLING Review of Systems Review of Systems: Yes all other systems are reviewed and are negative PMFSH Past Medical History Medical History Anemia Anxiety and depression Asthma Basal cell carcinoma Crohn's disease GERD (gastroesophageal reflux disease) Impaired glucose tolerance Osteopenia Peptic ulcer disease Renal calculi Tobacco abuse Vitamin D deficiency Surgical History H/O tubal ligation History of cholecystectomy History of lumpectomy of left breast Hx of appendectomy S/P small bowel resection Social History Social History Alcohol intake: current Alcohol intake frequency: a few times a month Patient Tobacco Use Status: Current everyday Tobacco user Tobacco use type: Cigarette Cigarette Packs Per Day: 1 Second Hand Smoke Exposure: Yes Advance Directives: No Advance Directives Information Provided: No Physical Exam Vital Signs: Vital Signs: Last Vital Signs Temp 98.5 F 07/27/21 17:07 Pulse 88 07/27/21 17:07 Resp 19 07/27/21 17:07 BP 170/81 H 07/27/21 17:07 Pulse Ox 95 07/27/21 17:07 BMI result Body Mass Index 21.6 Const: General: comfortable and well developed Orientation/consciousness: patient oriented x3 HENMT: Face images: 1. Tender , Swelling of right side of lower definite fluctuancy Mouth: Normal oral and palatal mucosa present Resp: Effort & Inspection: normal respiratory effort Auscultation: clear to auscultation bilaterally Cardio: Rate: regular rate Rhythm: regular rhythm Heart sounds: S1 normal heart sound present and S2 normal heart sound present Neuro: General: patient oriented x3 MDM - Skin/Abscess/Foreign Bdy MDM Narrative Medical decision making narrative: Patient with abscess of lower lip on the right side for last few days on Augmentin without much response I and D was done and pus came out which was sent for culture will start on Bactrim as Staph likely the cause of infection. Patient allergic to doxycycline Procedures Abscess I/D Site: lip Side (if applicable): right Local Anesthetic: lidocaine 2% Amount of anesthesia used (mL): 3 Technique: incised with blade Amount of fluid expressed (mL): 1 Sent for culture/gram staining?: Yes Irrigation: No Packing used?: none Discharge Plan Discharge Clinical Impression: Abscess of lip Patient Disposition: Home, Self-Care Instructions: Abscess (ED) Additional Instructions: Local care as advised Continue warm compresses and Augmentin Start taking Bactrim 1 tablet twice daily for 10 days Report to the ER if worsening of the swelling/fever/increased pain Prescriptions: New sulfamethoxazole-trimethoprim [Bactrim DS] 800-160 mg tablet 1 tab PO BID Qty: 20 0RF No Action albuterol sulfate 90 mcg/actuation HFA aerosol inhaler 2 puff PO Q4H PRN (Reason: shortness of breath or wheezing) Qty: 8.5 0RF oxybutynin chloride 5 mg tablet extended release 24hr 5 mg PO DAILY PRN (Reason: bladder spasm) Qty: 90 0RF cyanocobalamin (vitamin B-12) 1,000 mcg/mL solution 1,000 mcg IM Q4W 90 Days Qty: 4 3RF lorazepam 0.5 mg tablet 0.5 mg PO DAILY Qty: 30 1RF ciprofloxacin HCl [Cipro] 250 mg tablet 250 mg PO BID 5 Days Qty: 10 0RF tramadol 50 mg tablet 50 mg PO DAILY 90 Days Qty: 90 1RF raloxifene 60 mg tablet 60 mg PO DAILY Qty: 90 2RF buspirone 10 mg tablet 10 mg PO DAILY Qty: 90 2RF naproxen [Naprosyn] 500 mg tablet 500 mg PO BID Qty: 20 0RF betamethasone dipropionate 0.05 % cream 1 appl topical DAILY PRN0RF omeprazole 20 mg capsule,delayed release(DR/EC) 20 mg PO DAILY 0RF Shingrix (PF) 50 mcg/0.5 mL suspension for reconstitution IM 0RF triamcinolone acetonide 0.5 % cream topical BID 0RF azathioprine 50 mg tablet 100 mg PO DAILY 0RF fluticasone propionate 50 mcg/actuation spray,suspension intranasal 0RF mesalamine 500 mg capsule, extended release PO BID 0RF
[2021-07-27] MEDS: Sulfamethox/Trimeth 800/160 TABLET 1 TAB PO (20:42)
[2021-07-27] MEDS: Lidocaine HCl 2 % MPF 5 ML VIAL INFILTRATI (20:49)
== END 2021-07-27 20:48 | disposition home or self-care (01) ==
PROVIDERS: Emergency Provider Internal Medicine; PCP Internal Medicine
DX: K13.0 Diseases of lips (principal); F17.200 Nicotine dependence, unspecified, uncomplicated
CPT/HCPCS: 10060; 87071; 87077; 87186; 87205; 99284

== ENCOUNTER 2021-09-06 08:52 | Outpatient (REF) | payer MEDICARE, SELFPAY ==
[2021-09-06 08:46] LABS: MANUAL DIFF FLAG NO
[2021-09-06 09:19] LABS: Basophils Absolute Auto 0.1 X10*3/uL (0.0-0.2); Basophils Percent Auto 1.8 % (0-2); Eosinophils Absolute Auto 0.2 X10*3/uL (0.0-0.4); Eosinophils Percent Auto 3.3 % (0-4); Hemoglobin 13.3 g/dl (12.0-16.0); Imm Gran Abs Auto 0.02 X10*3/uL (0.00-0.03); Imm Gran Pct Auto 0.4 % (0.0-0.4); Lymphocytes Absolute Auto 0.7 X10*3/uL (1.2-4.9); Lymphocytes Percent Auto 13.2 % (20-40); Mean Corpuscular HGB Conc 33.3 g/dl (31.0-35.0); Mean Corpuscular Hemoglobin 34.3 pg (27.0-33.0); Mean Corpuscular Volume 103.1 fL (80.0-98.0); Mean Platelet Volume 10.2 fL (9.4-12.3); Monocytes Absolute Auto 0.6 X10*3/uL (0.1-1.2); Monocytes Percent Auto 10.6 % (2-11); Neutrophils Absolute Auto 3.9 x10*3/uL (2.0-8.3); Neutrophils Percent Auto 70.7 % (45-73); Platelet Count 264 X10*3/uL (160-400); Red Blood Count 3.88 X10*6/uL (4.20-5.50); Red Cell Distribution Width 13.7 % (11.0-16.0); White Blood Count 5.5 X10*3/uL (4.8-10.8)
[2021-09-06 09:50] LABS: Alanine Aminotransferase 13 U/L (0-31); Albumin Level 4.2 g/dL (3.5-5.0); Alkaline Phosphatase 89 U/L (39-117); Aspartate Amino Transferase 17 U/L (5-31); Bilirubin Direct 0.2 mg/dL (0.0-0.5); Bilirubin Total 0.5 mg/dL (0.0-1.0); Total Protein 6.7 g/dL (6.5-8.0)
== END 2021-09-06 08:53 | disposition home or self-care (01) ==
LOC: HO.LABR 08:52
PROVIDERS: PCP Internal Medicine; Visit Provider Internal Medicine
DX: K50.80 Crohn's disease of both small and large intestine without complications (principal)
CPT/HCPCS: 36415; 80076; 85025

== ENCOUNTER 2021-10-04 08:57 | Outpatient (REF) | payer MEDICARE, SELFPAY ==
[2021-10-04 08:47] LABS: MANUAL DIFF FLAG NO
[2021-10-04 09:02] LABS: Basophils Absolute Auto 0.1 X10*3/uL (0.0-0.2); Basophils Percent Auto 1.2 % (0-2); Eosinophils Absolute Auto 0.2 X10*3/uL (0.0-0.4); Eosinophils Percent Auto 4.5 % (0-4); Hemoglobin 13.3 g/dl (12.0-16.0); Imm Gran Abs Auto 0.01 X10*3/uL (0.00-0.03); Imm Gran Pct Auto 0.2 % (0.0-0.4); Lymphocytes Absolute Auto 0.7 X10*3/uL (1.2-4.9); Lymphocytes Percent Auto 14.3 % (20-40); Mean Corpuscular HGB Conc 33.3 g/dl (31.0-35.0); Mean Corpuscular Hemoglobin 34.4 pg (27.0-33.0); Mean Corpuscular Volume 103.4 fL (80.0-98.0); Monocytes Absolute Auto 0.6 X10*3/uL (0.1-1.2); Monocytes Percent Auto 11.3 % (2-11); Neutrophils Absolute Auto 3.5 x10*3/uL (2.0-8.3); Neutrophils Percent Auto 68.5 % (45-73); Platelet Count 282 X10*3/uL (160-400); Red Blood Count 3.87 X10*6/uL (4.20-5.50); Red Cell Distribution Width 13.4 % (11.0-16.0); White Blood Count 5.1 X10*3/uL (4.8-10.8)
[2021-10-04 09:26] LABS: Alanine Aminotransferase 10 U/L (0-31); Albumin Level 4.3 g/dL (3.5-5.0); Alkaline Phosphatase 91 U/L (39-117); Aspartate Amino Transferase 17 U/L (5-31); Bilirubin Direct 0.2 mg/dL (0.0-0.5); Bilirubin Total 0.5 mg/dL (0.0-1.0); Total Protein 6.5 g/dL (6.5-8.0)
== END 2021-10-04 08:58 | disposition home or self-care (01) ==
LOC: HO.LABR 08:57
PROVIDERS: PCP Internal Medicine; Visit Provider Internal Medicine
DX: K50.80 Crohn's disease of both small and large intestine without complications (principal)
CPT/HCPCS: 36415; 80076; 85025

== ENCOUNTER 2021-11-08 06:33 | Outpatient (REF) | payer MEDICARE, SELFPAY ==
[2021-11-08 06:44] LABS: MANUAL DIFF FLAG NO
[2021-11-08 07:48] LABS: Basophils Absolute Auto 0.1 X10*3/uL (0.0-0.2); Basophils Percent Auto 1.7 % (0-2); Eosinophils Absolute Auto 0.3 X10*3/uL (0.0-0.4); Eosinophils Percent Auto 7.7 % (0-4); Hematocrit 41.5 % (37.0-47.0); Hemoglobin 13.9 g/dl (12.0-16.0); Imm Gran Abs Auto 0.01 X10*3/uL (0.00-0.03); Imm Gran Pct Auto 0.2 % (0.0-0.4); Lymphocytes Absolute Auto 0.8 X10*3/uL (1.2-4.9); Lymphocytes Percent Auto 19.1 % (20-40); Mean Corpuscular HGB Conc 33.5 g/dl (31.0-35.0); Mean Corpuscular Hemoglobin 34.1 pg (27.0-33.0); Mean Corpuscular Volume 101.7 fL (80.0-98.0); Mean Platelet Volume 10.6 fL (9.4-12.3); Monocytes Absolute Auto 0.4 X10*3/uL (0.1-1.2); Monocytes Percent Auto 10.9 % (2-11); Neutrophils Absolute Auto 2.4 x10*3/uL (2.0-8.3); Neutrophils Percent Auto 60.4 % (45-73); Platelet Count 269 X10*3/uL (160-400); Red Blood Count 4.08 X10*6/uL (4.20-5.50)
[2021-11-08 07:52] LABS: Alanine Aminotransferase 13 U/L (0-31); Albumin Level 4.2 g/dL (3.5-5.0); Alkaline Phosphatase 84 U/L (39-117); Aspartate Amino Transferase 16 U/L (5-31); Bilirubin Direct 0.3 mg/dL (0.0-0.5); Bilirubin Total 0.7 mg/dL (0.0-1.0); Total Protein 6.8 g/dL (6.5-8.0)
[2021-11-08 07:56] LABS: Alanine Aminotransferase 15 U/L (0-31); Albumin Level 4.3 g/dL (3.5-5.0); Alkaline Phosphatase 87 U/L (39-117); Anion Gap 12 (12-20); Aspartate Amino Transferase 16 U/L (5-31); Bilirubin Total 0.7 mg/dL (0.0-1.0); Blood Urea Nitrogen 7 mg/dL (9-16); Calcium 9.7 mg/dL (8.4-10.2); Carbon Dioxide 29 mmol/L (22-29); Chloride 106 mmol/L (96-108); Cholesterol 159 mg/dL; Estimated Glomerular Filt Rate > 60; Glucose Random 112 mg/dL (60-115); HDL Cholesterol 72 mg/dL; LDL Cholesterol Calculated 72 mg/dl; Potassium 4.7 mmol/L (3.3-5.1); Sodium 142 mmol/L (135-145); Triglycerides 77 mg/dL
[2021-11-08 07:57] LABS: Estimated Average Glucose 114 mg/dL; Hemoglobin A1c % 5.6 %
[2021-11-08 08:17] LABS: Free T4 (Free Thyroxine) 0.85 ng/dL (0.71-1.85); Thyroid Stimulating Hormone 1.35 uIU/mL (0.32-4.0); Vitamin D 25-OH Total 39.4 ng/mL (>30)
[2021-11-08 08:34] LABS: Folate > 20.0 ng/mL (> or = 4.0); Vitamin B12 615 pg/mL (200-900)
[2021-11-08 09:22] LABS: Appearance Urine CLEAR; Color Urine STRAW; Glucose Urine UA NEG (NEG); Leukocyte Esterase Urine NEG (NEG); Nitrite Urine NEG (NEG); PH 5.5 (5.0-8.0); Specific Gravity - Urine <= 1.005 (1.005-1.025); Urine Blood 2+ (NEG); Urine Ketones NEG (NEG); Urine Protein NEG (NEG-TRACE)
[2021-11-08 09:42] LABS: RBC Urine 0-2 /HPF (0); Renal Epithelial Cells Urine 1+ /LPF; Squamous Epithelial Cell Urine 1+ /LPF; WBC Urine 0 /HPF (0-4)
== END 2021-11-08 06:34 | disposition home or self-care (01) ==
LOC: HO.LAB 06:33
PROVIDERS: Absent Provider Internal Medicine; PCP Internal Medicine; Visit Provider Internal Medicine
DX: K50.80 Crohn's disease of both small and large intestine without complications (principal); R73.02 Impaired glucose tolerance (oral); E78.00 Pure hypercholesterolemia, unspecified
CPT/HCPCS: 36415; 80053; 80061; 80076; 81001; 82248; 82306; 82607; 82746; 83036; 84439; 84443; 85025

== ENCOUNTER 2021-12-23 08:22 | Outpatient (REF) | payer MEDICARE, SELFPAY ==
[2021-12-23 10:40] LABS: CDiff Gene PCR NEGATIVE (Negative)
== END 2021-12-23 08:23 | disposition home or self-care (01) ==
LOC: HO.LNP 08:22
PROVIDERS: Visit Provider Internal Medicine
DX: R19.7 Diarrhea, unspecified (principal)
CPT/HCPCS: 87493

== ENCOUNTER 2022-01-03 08:44 | Outpatient (REF) | payer MEDICARE, SELFPAY ==
[2022-01-03 08:52] LABS: MANUAL DIFF FLAG NO
[2022-01-03 09:13] LABS: Basophils Absolute Auto 0.1 X10*3/uL (0.0-0.2); Basophils Percent Auto 1.2 % (0-2); Eosinophils Absolute Auto 0.2 X10*3/uL (0.0-0.4); Eosinophils Percent Auto 5.3 % (0-4); Hematocrit 36.6 % (37.0-47.0); Hemoglobin 12.4 g/dl (12.0-16.0); Imm Gran Abs Auto 0.01 X10*3/uL (0.00-0.03); Imm Gran Pct Auto 0.2 % (0.0-0.4); Lymphocytes Absolute Auto 0.6 X10*3/uL (1.2-4.9); Lymphocytes Percent Auto 14.4 % (20-40); Mean Corpuscular HGB Conc 33.9 g/dl (31.0-35.0); Mean Corpuscular Volume 100.3 fL (80.0-98.0); Mean Platelet Volume 9.7 fL (9.4-12.3); Monocytes Absolute Auto 0.5 X10*3/uL (0.1-1.2); Monocytes Percent Auto 12.1 % (2-11); Neutrophils Absolute Auto 2.9 x10*3/uL (2.0-8.3); Neutrophils Percent Auto 66.8 % (45-73); Platelet Count 277 X10*3/uL (160-400); Red Blood Count 3.65 X10*6/uL (4.20-5.50); Red Cell Distribution Width 14.1 % (11.0-16.0); White Blood Count 4.3 X10*3/uL (4.8-10.8)
[2022-01-03 10:03] LABS: Alanine Aminotransferase 10 U/L (0-31); Albumin Level 4.2 g/dL (3.5-5.0); Alkaline Phosphatase 70 U/L (39-117); Aspartate Amino Transferase 16 U/L (5-31); Bilirubin Direct 0.3 mg/dL (0.0-0.5); Bilirubin Total 0.7 mg/dL (0.0-1.0); Total Protein 6.6 g/dL (6.5-8.0)
[2022-01-03 10:34] LABS: Appearance Urine CLEAR; Color Urine STRAW; Glucose Urine UA NEG (NEG); Leukocyte Esterase Urine NEG (NEG); Nitrite Urine NEG (NEG); PH 5.5 (5.0-8.0); Specific Gravity - Urine <= 1.005 (1.005-1.025); Urine Blood 1+ (NEG); Urine Ketones NEG (NEG); Urine Protein NEG (NEG-TRACE)
[2022-01-03 10:50] LABS: Squamous Epithelial Cell Urine TRACE /LPF; WBC Urine 0-2 /HPF (0-4)
== END 2022-01-03 08:45 | disposition home or self-care (01) ==
LOC: HO.LABR 08:44
PROVIDERS: PCP Internal Medicine; Visit Provider Internal Medicine
DX: K50.80 Crohn's disease of both small and large intestine without complications (principal)
CPT/HCPCS: 36415; 80076; 81001; 85025

== ENCOUNTER 2022-01-22 13:10 | Outpatient (REF) | payer MEDICARE, SELFPAY ==
--- NOTE | ~2022-01-22 | US_ITS ---
EXAMINATION: US PELVIS CLINICAL INFORMATION: Postmenopausal bleeding COMPARISON: None TECHNIQUE: Ultrasound of the pelvis is performed using both transabdominal and transvaginal transducers along with Doppler. Transvaginal imaging is performed due to inadequate visualization transabdominally. FINDINGS: The uterus is anteverted and measures 7 x 2.4 x 3.8 cm. Endometrial thickness is upper normal for a postmenopausal patient measuring 0.5 cm. There are 2 small cystic areas in the endometrium measuring 3 x 4 mm and 5 x 2 x 4 mm. No focal uterine lesion is seen. The right ovary measures 1.6 x 1.3 x 1.5 cm. There is a small nonspecific echogenic focus in the right ovary measuring 2 mm. The left ovary is not seen. There is no fluid in the pelvis. US/US pelvic and transvaginal IMPRESSION: Upper normal thickness endometrium for a postmenopausal patient which is a heterogeneous with small cystic areas. Small nonspecific 2 mm echogenic focus in the right ovary. Left ovary not seen.
== END 2022-01-22 13:11 | disposition home or self-care (01) ==
LOC: HO.US 13:10
PROVIDERS: Visit Provider Physician Assistant
DX: N95.0 Postmenopausal bleeding (principal)
CPT/HCPCS: 76830; 76856

== ENCOUNTER 2022-02-20 12:51 | Outpatient (REF) | payer MEDICARE, SELFPAY ==
[2022-02-27 22:41] LABS: HPV mRNA E6/E7 rflx Not Detected (Not Detected)
== END 2022-02-20 12:52 | disposition home or self-care (01) ==
LOC: HO.LNP 12:51
PROVIDERS: Visit Provider Obstetrics & Gynecology
DX: Z12.4 Encounter for screening for malignant neoplasm of cervix (principal); Z11.51 Encounter for screening for human papillomavirus (HPV); R31.29 Other microscopic hematuria; R93.5 Abnormal findings on diagnostic imaging of other abdominal regions, including retroperitoneum; N95.0 Postmenopausal bleeding
CPT/HCPCS: 87086; 87624; 88142; 99202

== ENCOUNTER 2022-02-21 08:54 | Outpatient (REF) | payer MEDICARE, SELFPAY ==
[2022-02-21 09:06] LABS: MANUAL DIFF FLAG NO
[2022-02-21 09:30] LABS: Basophils Absolute Auto 0.1 X10*3/uL (0.0-0.2); Basophils Percent Auto 1.5 % (0-2); Eosinophils Absolute Auto 0.3 X10*3/uL (0.0-0.4); Eosinophils Percent Auto 5.2 % (0-4); Hematocrit 38.1 % (37.0-47.0); Hemoglobin 12.8 g/dl (12.0-16.0); Imm Gran Abs Auto 0.02 X10*3/uL (0.00-0.03); Imm Gran Pct Auto 0.4 % (0.0-0.4); Lymphocytes Absolute Auto 0.7 X10*3/uL (1.2-4.9); Lymphocytes Percent Auto 12.8 % (20-40); Mean Corpuscular HGB Conc 33.6 g/dl (31.0-35.0); Mean Corpuscular Hemoglobin 34.4 pg (27.0-33.0); Mean Corpuscular Volume 102.4 fL (80.0-98.0); Mean Platelet Volume 10.1 fL (9.4-12.3); Monocytes Absolute Auto 0.5 X10*3/uL (0.1-1.2); Monocytes Percent Auto 8.8 % (2-11); Neutrophils Absolute Auto 3.7 x10*3/uL (2.0-8.3); Neutrophils Percent Auto 71.3 % (45-73); Platelet Count 276 X10*3/uL (160-400); Red Blood Count 3.72 X10*6/uL (4.20-5.50); Red Cell Distribution Width 14.5 % (11.0-16.0); White Blood Count 5.2 X10*3/uL (4.8-10.8)
[2022-02-21 09:55] LABS: Alanine Aminotransferase 14 U/L (0-31); Albumin Level 4.4 g/dL (3.5-5.0); Alkaline Phosphatase 85 U/L (39-117); Aspartate Amino Transferase 19 U/L (5-31); Bilirubin Direct 0.3 mg/dL (0.0-0.5); Bilirubin Total 0.6 mg/dL (0.0-1.0); Total Protein 6.8 g/dL (6.5-8.0)
== END 2022-02-21 08:55 | disposition home or self-care (01) ==
LOC: HO.LABR 08:54
PROVIDERS: PCP Internal Medicine; Visit Provider Internal Medicine
DX: K50.80 Crohn's disease of both small and large intestine without complications (principal)
CPT/HCPCS: 36415; 80076; 85025

== ENCOUNTER 2022-03-03 14:09 | Outpatient (REF) | payer MEDICARE, SELFPAY ==
--- NOTE | ~2022-03-03 | CT_ITS ---
EXAMINATION: CT ABDOMEN AND PELVIS WITHOUT AND WITH CONTRAST CLINICAL INFORMATION: Microscopic hematuria COMPARISON: Previous CT of the abdomen and pelvis April 2019 and pelvic ultrasound December 2021 TECHNIQUE: Multidetector volumetric imaging was performed of the abdomen and pelvis before and after the IV administration of 85 mL of Omnipaque 350 intravenous contrast. Sagittal and coronal reformatted images were obtained on the technologist's workstation. This CT examination was performed using dose optimization techniques as appropriate, variously including the following: *Automated exposure control *Adjustment of mA and/or kV according to patient size (this includes techniques or standardized protocols for targeted exams where dose is matched to indication/reason for exam; i.e. extremities or head) *Use of iterative reconstruction technique DLP: 499 mGy-cm FINDINGS: LUNG BASES: The visualized lung bases are unremarkable. LIVER, GALLBLADDER, AND BILIARY TREE: The liver is not completely visualized. The liver is low in attenuation suggestive of fatty infiltration. The gallbladder has been removed. There is no intrahepatic biliary duct dilatation. Common bile duct is slightly dilated measuring 1 cm. This may be normal postcholecystectomy. PANCREAS: There is severe fatty infiltration of the pancreas. SPLEEN: Not completely visualized but appears unremarkable. ADRENAL GLANDS: Unremarkable KIDNEYS AND URETERS: There is mild left hydronephrosis from a 4 mm left UPJ stone. There is mild dilatation of the left proximal ureter distal to this stone. The left distal ureter does not appear dilated. This is similar to 2019 exam. No left distal ureteral stone is seen. There is question of tiny 1 mm stones in the lower pole of both kidneys. No right hydronephrosis. There are small bilateral renal cysts that are stable. No imaging follow-up needed. BLADDER: Unremarkable GASTROINTESTINAL TRACT: There is stool throughout the colon. There is a surgical staple line seen in the cecum/right colon. Small and large bowel is otherwise normal. Question appendix still present, for example axial image 35 series 4. This is a similar to 2019 exam. ABDOMINAL WALL: No significant hernia is appreciated. LYMPH NODES: Small right lower quadrant small bowel mesentery lymph nodes similar to previous exam. No enlarged lymph nodes. No ascites. VASCULAR: Atherosclerotic disease. PELVIC VISCERA: There are small calcifications in both ovaries. No adnexal mass. Normal-appearing uterus. OSSEOUS STRUCTURES: There are degenerative changes of the spine CT/CT abdomen pelvis wo/w IV con IMPRESSION: Mild left hydronephrosis from a 5 mm left UPJ stone. Question small 1 mm in size bilateral lower pole renal stones. Small bilateral renal cysts. No imaging follow-up needed. Normal bladder. Post cholecystectomy. Fatty liver. Atrophic pancreas. Fleischner guidelines were followed.
[2022-03-04 10:47] LABS: Creatinine POC 0.5 mg/dL (0.5-1.4); GFR POC > 60
== END 2022-03-03 14:10 | disposition home or self-care (01) ==
LOC: HO.CT 14:09
PROVIDERS: Visit Provider Obstetrics & Gynecology
DX: R31.29 Other microscopic hematuria (principal)
CPT/HCPCS: 74178; 82565

== ENCOUNTER 2022-03-04 10:03 | Outpatient (REF) | payer MEDICARE, SELFPAY ==
[2022-03-04 10:18] LABS: MANUAL DIFF FLAG NO
[2022-03-04 11:38] LABS: Basophils Absolute Auto 0.1 X10*3/uL (0.0-0.2); Basophils Percent Auto 1.4 % (0-2); Eosinophils Absolute Auto 0.2 X10*3/uL (0.0-0.4); Eosinophils Percent Auto 3.6 % (0-4); Hematocrit 37.7 % (37.0-47.0); Hemoglobin 12.7 g/dl (12.0-16.0); Imm Gran Abs Auto 0.02 X10*3/uL (0.00-0.03); Imm Gran Pct Auto 0.3 % (0.0-0.4); Lymphocytes Absolute Auto 0.7 X10*3/uL (1.2-4.9); Lymphocytes Percent Auto 11.7 % (20-40); Mean Corpuscular HGB Conc 33.7 g/dl (31.0-35.0); Mean Corpuscular Hemoglobin 34.6 pg (27.0-33.0); Mean Corpuscular Volume 102.7 fL (80.0-98.0); Mean Platelet Volume 10.3 fL (9.4-12.3); Monocytes Absolute Auto 0.5 X10*3/uL (0.1-1.2); Monocytes Percent Auto 7.8 % (2-11); Neutrophils Absolute Auto 4.5 x10*3/uL (2.0-8.3); Neutrophils Percent Auto 75.2 % (45-73); Platelet Count 338 X10*3/uL (160-400); Red Blood Count 3.67 X10*6/uL (4.20-5.50); Red Cell Distribution Width 14.6 % (11.0-16.0); White Blood Count 5.9 X10*3/uL (4.8-10.8)
[2022-03-04 11:52] LABS: C Reactive Protein 0.12 mg/dL (< or = 0.50)
[2022-03-04 12:09] LABS: Erythrocyte Sedimentation Rate 5 MM/HR (0-20)
== END 2022-03-04 10:04 | disposition home or self-care (01) ==
LOC: HO.LAB 10:03
PROVIDERS: PCP Internal Medicine; Visit Provider Internal Medicine
DX: K50.80 Crohn's disease of both small and large intestine without complications (principal); R19.7 Diarrhea, unspecified
CPT/HCPCS: 36415; 85025; 85652; 86140

== ENCOUNTER 2022-03-05 07:48 | Outpatient (REF) | payer MEDICARE, SELFPAY ==
[2022-03-05 09:27] LABS: Leukocytes Stool Qualitative NEGATIVE (NEGATIVE)
[2022-03-05 12:07] LABS: CDiff Gene PCR POSITIVE (Negative)
[2022-03-05 12:40] LABS: Adenovirus F 40/41 Not Detected (Not Detect.); Astrovirus Not Detected (Not Detect.); Campylobacter Not Detected (Not Detect.); Cryptosporidium Not Detected (Not Detect.); Cyclospora cayetanensis Not Detected (Not Detect.); E. coli EAEC Not Detected (Not Detect.); E. coli EPEC Not Detected (Not Detect.); E. coli ETEC Not Detected (Not Detect.); E. coli STEC Not Detected (Not Detect.); Entamoeba histolytica Not Detected (Not Detect.); Giardia lamblia Not Detected (Not Detect.); Norovirus GI/GII Not Detected (Not Detect.); Plesiomonas shigelloides Not Detected (Not Detect.); Rotavirus A Not Detected (Not Detect.); Salmonella Not Detected (Not Detect.); Sapovirus Not Detected (Not Detect.); Shigella sp./EIEC Not Detected (Not Detect.); Vibrio Not Detected (Not Detect.); Vibrio Cholerae Not Detected (Not Detect.); Yersinia enterocolitica Not Detected (Not Detect.)
[2022-03-05 13:49] LABS: CDIFF Internal ctrl Dots and bkg OK (V); CDiff Toxin Negative (Negative)
[2022-03-12 22:37] LABS: Calprotectin, Fecal 66 mcg/g
== END 2022-03-05 07:49 | disposition home or self-care (01) ==
LOC: HO.LNP 07:48
PROVIDERS: Visit Provider Internal Medicine
DX: K50.80 Crohn's disease of both small and large intestine without complications (principal); R19.7 Diarrhea, unspecified
CPT/HCPCS: 83993; 87324; 87493; 87507; 89055

== ENCOUNTER 2022-03-12 08:46 | Outpatient (REF) | payer MEDICARE, SELFPAY ==
[2022-03-12 16:04] LABS: Urine Cytology See Pathology rpt
== END 2022-03-12 08:47 | disposition home or self-care (01) ==
LOC: HO.LAB 08:46
PROVIDERS: PCP Internal Medicine; Visit Provider Urology
DX: R31.29 Other microscopic hematuria (principal); N32.81 Overactive bladder; N20.0 Calculus of kidney; Z79.899 Other long term (current) drug therapy
CPT/HCPCS: 51798; 88112; 99202

== ENCOUNTER 2022-03-14 06:53 | Day surgery (SDC) | payer MEDICARE, SELFPAY ==
--- NOTE | 2022-03-13 10:19 | P.CONAN_ITS ---
Documented by User: Nishi Coyle NP 03/13/22 10:20 HPI - Anesthesia Eval Consult details Narrative: 66yo F for D&C Hysteroscopy,poss polypectomy,poss myomectomy, Cystoscopy possible biopsies PMFSH Active Problems Active Problems: All Active Problems (Updated 03/12/22 @ 10:12 by Catrachita Smith MD) Kidney stone on left side (Acute) Abnormal ultrasound of endometrium (Acute) Microscopic hematuria (Acute) Cystic endometrial hyperplasia (Acute) Facial abscess (Acute) Post-menopausal bleeding (Acute) Adult general medical exam (Acute) Palpitations (Acute) Flank pain (Acute) Osteopenia (Acute) Crohn's disease (Acute) Tobacco abuse (Acute) Impaired glucose tolerance (Acute) Anxiety and depression (Acute) Asthma (Acute) GERD (gastroesophageal reflux disease) (Acute) Overactive bladder (Acute) B12 deficiency (Acute) Past Medical History Medical History Anemia Anxiety and depression Asthma Basal cell carcinoma Crohn's disease GERD (gastroesophageal reflux disease) Impaired glucose tolerance Lip abscess Osteopenia Peptic ulcer disease Renal calculi Tobacco abuse Vitamin D deficiency Surgical History Surgical History H/O tubal ligation History of cholecystectomy History of colonoscopy History of lumpectomy of left breast Hx of appendectomy S/P small bowel resection Social History Social History Housing: House Alcohol intake: current Alcohol intake frequency: holidays/special occasions only Patient Tobacco Use Status: Current everyday Tobacco user Tobacco use type: Cigarette Cigarette Packs Per Day: 1 Cigarettes Per Day: 20.0 Years Smoked: 50 Smoked in Last 30 Days: Yes e-Cigarette/Vaping Use: Never Used Second Hand Smoke Exposure: Yes Use of substances other than those prescribed or required for medical reasons: No Are you DNR?: No Advance Directives: No Advance Directives Information Provided: Yes Current occupational status: retired Cognitive needs: No Hearing needs: No Vision needs: Yes Meds Allergies Allergy/AdvReac Type Severity Reaction Status Date / Time Darvon Allergy Unknown oral Verified 03/14/22 06:58 swelling doxycycline [DOXYCYCLINE] Allergy Unknown SEVERE Verified 03/14/22 06:58 DIARRHEA Doxycycline Hyclate Allergy Unknown diarrhea, Verified 03/14/22 06:58 severe diarrhea tetracycline [TETRACYCLINE] Allergy Unknown ITCHING, Verified 03/14/22 06:58 unknown From DARVON Allergy Unknown TONGUE Uncoded 03/14/22 06:58 SWELLING Home Medications Medication Instructions Recorded Confirmed Last Taken Type azathioprine 50 mg tablet 100 mg PO DAILY 04/24/20 03/14/22 Unknown History omeprazole 20 mg capsule,delayed 20 mg PO DAILY 04/24/20 03/14/22 Unknown History release betamethasone dipropionate 0.05 % 1 appl topical DAILY PRN Dry Skin 06/07/20 03/14/22 Unknown History topical cream mesalamine 500 mg capsule,extended 1,000 mg PO QID 06/07/20 03/14/22 Unknown History release dicyclomine 10 mg capsule 10 mg PO DAILY 04/30/21 03/14/22 Unknown History fluocinonide 0.05 % topical 1 appl topical DIRECTED 04/30/21 03/14/22 Unknown History solution Exam Exam Date and Time: March 13, 2022 1019 Pertinent Lab Results Pertinent Lab Results: Laboratory Tests 11/08/21 03/04/22 06:43 10:17 WBC 5.9 Hgb 12.7 Hct 37.7 Plt Count 338 Sodium 142 Potassium 4.7 D Chloride 106 Carbon Dioxide 29 BUN 7 L Creatinine 0.72 Assessment and Plan Assessment Anesthesia Assessment: Chart Reviewed Documented by User: Karan Goodman MD 03/14/22 08:30 [facility] Past Medical History Medical History Anemia Anxiety and depression Asthma Basal cell carcinoma Crohn's disease GERD (gastroesophageal reflux disease) Impaired glucose tolerance Lip abscess Osteopenia Peptic ulcer disease Renal calculi Tobacco abuse Vitamin D deficiency Family History Family history of problems with anesthesia: No Surgical History Surgical History H/O tubal ligation History of cholecystectomy History of colonoscopy History of lumpectomy of left breast Hx of appendectomy S/P small bowel resection History of Problems with Anesthesia: No Social History Social History Housing: House Alcohol intake: current Alcohol intake frequency: holidays/special occasions only Patient Tobacco Use Status: Current everyday Tobacco user Tobacco use type: Cigarette Cigarette Packs Per Day: 1 Cigarettes Per Day: 20.0 Years Smoked: 50 Smoked in Last 30 Days: Yes e-Cigarette/Vaping Use: Never Used Second Hand Smoke Exposure: Yes Use of substances other than those prescribed or required for medical reasons: No Are you DNR?: No Advance Directives: No Advance Directives Information Provided: Yes Current occupational status: retired Cognitive needs: No Hearing needs: No Vision needs: Yes Meds Allergies Allergy/AdvReac Type Severity Reaction Status Date / Time Darvon Allergy Unknown oral Verified 03/14/22 06:58 swelling doxycycline [DOXYCYCLINE] Allergy Unknown SEVERE Verified 03/14/22 06:58 DIARRHEA Doxycycline Hyclate Allergy Unknown diarrhea, Verified 03/14/22 06:58 severe diarrhea tetracycline [TETRACYCLINE] Allergy Unknown ITCHING, Verified 03/14/22 06:58 unknown From DARVON Allergy Unknown TONGUE Uncoded 03/14/22 06:58 SWELLING Home Medications Medication Instructions Recorded Confirmed Last Taken Type azathioprine 50 mg tablet 100 mg PO DAILY 04/24/20 03/14/22 Unknown History omeprazole 20 mg capsule,delayed 20 mg PO DAILY 04/24/20 03/14/22 Unknown History release betamethasone dipropionate 0.05 % 1 appl topical DAILY PRN Dry Skin 06/07/20 03/14/22 Unknown History topical cream mesalamine 500 mg capsule,extended 1,000 mg PO QID 06/07/20 03/14/22 Unknown History release dicyclomine 10 mg capsule 10 mg PO DAILY 04/30/21 03/14/22 Unknown History fluocinonide 0.05 % topical 1 appl topical DIRECTED 04/30/21 03/14/22 Unknown History solution Exam Airway Mallampati Class: I TM Dist: >3cm Neck ROM: Full Loose/Missing/Broken Teeth: No Heart: ok Lungs: ok Assessment and Plan Assessment Anesthesia Assessment: Anesthesia Plan Discussed and Chart Reviewed Final Anesthetic Review Family History of Problems with Anesthesia: No History of Problems with Anesthesia: No NPO: Yes ASA Class: II Final Preanesthetic Review: No Changes in Pt Med Stat, Meds/Allgs Chart Reviewed, Consent Obtained/Reviewed and Anes Risks/Benef Reviewed Patient Risk: Low Procedure Risk: Low Anesthetic Plan Anesthetic Plan: GA and Agree w/ Assess. and Plan Disposition: Standard PACU
[2022-03-14] VITALS (13 sets, daily range): BP systolic 117–144; BP diastolic 68–86; PULSE 65–105; RESP 16–20; TEMP 36.1–36.8; O2SAT 96–100
[2022-03-14] MEDS: Lactated Ringers 1,000 ML 100 ML IVCONT (07:28)
--- NOTE | 2022-03-14 07:38 | MHC.SHP ---
Pre-Procedural Eval Section A Date of Service: 03/14/22 The patient is an INPATIENT: No Changes since office visit: No Cold of Flu in the past 2 weeks, No New Medical Problems, No Changes in Medication and No Patient answered all questions The History & Physical has been completed within 30 days and I have reviewed it.: Yes Section B Chief Complaint: Abnormal findings on diagnostic imaging of other a Allergies: Allergies Allergy/AdvReac Type Severity Reaction Status Date / Time Darvon Allergy Unknown oral Verified 03/14/22 06:58 swelling doxycycline [DOXYCYCLINE] Allergy Unknown SEVERE Verified 03/14/22 06:58 DIARRHEA Doxycycline Hyclate Allergy Unknown diarrhea, Verified 03/14/22 06:58 severe diarrhea tetracycline [TETRACYCLINE] Allergy Unknown ITCHING, Verified 03/14/22 06:58 unknown From DARVON Allergy Unknown TONGUE Uncoded 03/14/22 06:58 SWELLING Plan Diagnosis/Plan: Unchanged I have reviewed the history and physical and performed a pertinent physical examination on my patient. No changes have occurred unless specified.
--- NOTE | 2022-03-14 08:18 | MHC.SHP ---
Pre-Procedural Eval Section A Date of Service: 03/14/22 The patient is an INPATIENT: No Section B Chief Complaint: Abnormal findings on diagnostic imaging of other a Allergies: Allergies Allergy/AdvReac Type Severity Reaction Status Date / Time Darvon Allergy Unknown oral Verified 03/14/22 06:58 swelling doxycycline [DOXYCYCLINE] Allergy Unknown SEVERE Verified 03/14/22 06:58 DIARRHEA Doxycycline Hyclate Allergy Unknown diarrhea, Verified 03/14/22 06:58 severe diarrhea tetracycline [TETRACYCLINE] Allergy Unknown ITCHING, Verified 03/14/22 06:58 unknown From DARVON Allergy Unknown TONGUE Uncoded 03/14/22 06:58 SWELLING Plan Diagnosis/Plan: Unchanged I have reviewed the history and physical and performed a pertinent physical examination on my patient. No changes have occurred unless specified.
--- NOTE | 2022-03-14 09:12 | PM.OP ---
Brief Operative Note Date of Service: 03/14/22 Pre-op diagnosis: Postmenopausal bleeding and abnormal endometrial by ultrasound Post-op diagnosis: same (Endometrial polyp) Procedure: Hysteroscopy D&C, Polypectomy Surgeon: Perez Carcamo MD Anesthesia: GLMA Was an Official Court Interpreter used for this Procedure?: No Estimated blood loss (mL): 0 Pathology: other (Endometrial Scrapping. Polyp) Condition: stable Disposition: PACU
--- NOTE | 2022-03-14 09:13 | P.OP_ITS ---
Operative Note Operative Note Date of Service: 03/14/22 Narrative: Preop Diagnosis: Postmenopausal bleeding and possible Endometrial polyp by US Operation: Diagnostic Hysteroscopy, Dilataion & Curettage and polypectomy Post Op Diagnosis: Endometrial Polyp QBL: Minimal Anesthesia: GLMA Surgeon: Perez Carcamo MD Inside Steward/Stewardess: None Complication: None Pathology: Endometrial Scrapings, Endometrial polyp Procedure: The patient was put in the dorsal lithotomy position, scrubbed, and draped in the usual manner. A sterile speculum was inserted in the patient's vagina. The anterior lip of the cervix was grasped with a single tooth tenaculum. The cervix was dilated up to 5 mm, then the scope was inserted in the patient's uterus. Inspection revealed endometrial polyp. The Myosure Reach device was used; it was introduced through the operative channel and polypectomy done with no complications. The scope was then taken out from the uterine cavity, sharp curettings was carried on with minimal to moderate amount of tissues retrieved. At the end of the procedure, all instruments were taken out of the patient uterine and vaginal cavity. The single tooth tenaculum was removed and homeostasis was assured using pressure. The patient tolerated the procedure well and at this point , urology, took over the case for a cystoscopy.
--- NOTE | 2022-03-14 09:14 | W.PM.OPN ---
Operative Note Operative Note Date of Service: 03/14/22 Narrative: PREOP DIAGNOSIS: Hematuria, Vaginal bleeding POSTOP DIAGNOSIS: Hematuria, Vaginal bleeding PROCEDURE: CYSTOSCOPY Indications: The patient is a 66 year old female with complaints vaginal bleeding and irritative lower urinary tract symptoms of urgency and intermittent dysuria, urinalysis microscopic hematuria, CT imaging noted nephrolithiasis, bladder within normal limits. The patient is also being evaluated by RUBBER STAMP DIES INSPECTOR, dictation separate. Details of procedure: The patient was brought into the operating room placed on the OR table in supine position. 2 g of Ancef IV. General anesthesia was administered. The patient was repositioned into lithotomy position, prepped and draped in the usual sterile fashion. Time-out was done per protocol. The Insurance Administrator procedure was performed without incident. A 22 fr cystoscope was placed transurethrally into the bladder. The right and left ureteral orifices were visualized. The entire bladder was visualized. There were no suspicious bladder lesions seen. The cystoscope was removed. 2% lidocaine urojet 10 mL, was passed transurethrally into the bladder. A Belladonna rectal supository was administered. The patient was brought out of anesthesia and taken to recovery in stable condition. Complications: None Drains: None
[2022-03-14] MEDS: fentaNYL citrate/PF 100 MCG/2 ML VIAL 25 MCG IVPUSH ×4 (09:24→09:48)
[2022-03-14] MEDS: oxyCODONE HCl Immed Release 5 MG TABLET PO (09:25)
[2022-03-14] MEDS: Acetaminophen 325 MG TABLET 650 MG PO (09:28)
== END 2022-03-14 10:58 | disposition home or self-care (01) ==
PROVIDERS: Urology; PCP Internal Medicine; Visit Provider Obstetrics & Gynecology
PROC: 0UDB8ZZ Extraction of Endometrium, Via Natural or Artificial Opening Endoscopic (ICD-10-PCS; CPT 58558; principal; 2022-03-14 08:30)
PROC: 0TJB8ZZ Inspection of Bladder, Via Natural or Artificial Opening Endoscopic (ICD-10-PCS; CPT 52000; 2022-03-14 08:30)
DX: N84.0 Polyp of corpus uteri (principal); N93.9 Abnormal uterine and vaginal bleeding, unspecified; R31.29 Other microscopic hematuria; R39.15 Urgency of urination; R30.0 Dysuria; N20.0 Calculus of kidney
CPT/HCPCS: 58558; 52000; 88305; C1758; C1769; J0690; J2250; J2405; J3010; Q9966

== ENCOUNTER 2022-03-21 08:59 | Outpatient (REF) | payer MEDICARE, SELFPAY ==
[2022-03-21 09:10] LABS: MANUAL DIFF FLAG NO
[2022-03-21 10:05] LABS: Basophils Absolute Auto 0.1 X10*3/uL (0.0-0.2); Basophils Percent Auto 1.1 % (0-2); Eosinophils Absolute Auto 0.4 X10*3/uL (0.0-0.4); Eosinophils Percent Auto 8.5 % (0-4); Hematocrit 38.9 % (37.0-47.0); Hemoglobin 12.9 g/dl (12.0-16.0); Imm Gran Abs Auto 0.02 X10*3/uL (0.00-0.03); Imm Gran Pct Auto 0.4 % (0.0-0.4); Lymphocytes Absolute Auto 0.5 X10*3/uL (1.2-4.9); Mean Corpuscular HGB Conc 33.2 g/dl (31.0-35.0); Mean Corpuscular Hemoglobin 34.8 pg (27.0-33.0); Mean Corpuscular Volume 104.9 fL (80.0-98.0); Mean Platelet Volume 10.3 fL (9.4-12.3); Monocytes Absolute Auto 0.7 X10*3/uL (0.1-1.2); Monocytes Percent Auto 13.8 % (2-11); Neutrophils Absolute Auto 3.1 x10*3/uL (2.0-8.3); Neutrophils Percent Auto 65.2 % (45-73); Platelet Count 306 X10*3/uL (160-400); Red Blood Count 3.71 X10*6/uL (4.20-5.50); Red Cell Distribution Width 14.3 % (11.0-16.0); White Blood Count 4.7 X10*3/uL (4.8-10.8)
[2022-03-21 10:21] LABS: Alanine Aminotransferase 10 U/L (0-31); Albumin Level 4.3 g/dL (3.5-5.0); Alkaline Phosphatase 87 U/L (39-117); Aspartate Amino Transferase 18 U/L (5-31); Bilirubin Direct 0.2 mg/dL (0.0-0.5); Bilirubin Total 0.5 mg/dL (0.0-1.0)
== END 2022-03-21 09:00 | disposition home or self-care (01) ==
LOC: HO.LAB 08:59
PROVIDERS: PCP Internal Medicine; Visit Provider Internal Medicine
DX: K50.80 Crohn's disease of both small and large intestine without complications (principal); R31.29 Other microscopic hematuria; N32.81 Overactive bladder; N20.0 Calculus of kidney
CPT/HCPCS: 36415; 51798; 80076; 85025; 99212

== ENCOUNTER → 2022-03-27 11:26 | Outpatient (BNVA) | payer MEDICARE, SELFPAY | PROVIDERS: PCP Internal Medicine; Visit Provider Obstetrics & Gynecology | DX: R93.5 Abnormal findings on diagnostic imaging of other abdominal regions, including retroperitoneum (principal) | CPT/HCPCS: 99212 ==

== ENCOUNTER 2022-04-02 08:17 | Day surgery (SDC) | payer MEDICARE, SELFPAY ==
--- NOTE | 2022-04-01 10:38 | HO.ANESPROP2 ---
Documented by User: Nishi Coyle NP 04/01/22 10:40 HPI - Anesthesia Eval Consult details Narrative: 66yo F for Left ESWL s/p D&C, cysto 03/2022 with GA-LMA 3 PMFSH Active Problems Active Problems: All Active Problems (Updated 03/12/22 @ 10:12 by Catrachita Smith MD) B12 deficiency (Acute) Overactive bladder (Acute) Flank pain (Acute) Palpitations (Acute) Adult general medical exam (Acute) Post-menopausal bleeding (Acute) Facial abscess (Acute) Cystic endometrial hyperplasia (Acute) Microscopic hematuria (Acute) Abnormal ultrasound of endometrium (Acute) Kidney stone on left side (Acute) Osteopenia (Acute) Crohn's disease (Acute) Tobacco abuse (Acute) Impaired glucose tolerance (Acute) Anxiety and depression (Acute) Asthma (Acute) GERD (gastroesophageal reflux disease) (Acute) Past Medical History Medical History Anemia Anxiety and depression Asthma Basal cell carcinoma Crohn's disease GERD (gastroesophageal reflux disease) Impaired glucose tolerance Lip abscess Osteopenia Peptic ulcer disease Renal calculi Tobacco abuse Vitamin D deficiency Family History Family history of problems with anesthesia: No Surgical History Surgical History H/O tubal ligation History of cholecystectomy History of colonoscopy History of hysteroscopy History of lumpectomy of left breast Hx of appendectomy Hx of cystoscopy S/P small bowel resection History of Problems with Anesthesia: No Social History Social History Housing: House Alcohol intake: current Alcohol intake frequency: does not drink Patient Tobacco Use Status: Current everyday Tobacco user Tobacco use type: Cigarette Cigarette Packs Per Day: 1 Cigarettes Per Day: 20.0 Years Smoked: 50 e-Cigarette/Vaping Use: Never Used Second Hand Smoke Exposure: Yes Are you DNR?: No Advance Directives: No Advance Directives Information Provided: Yes Current occupational status: retired Cognitive needs: No Hearing needs: No Vision needs: Yes Meds Allergies Allergy/AdvReac Type Severity Reaction Status Date / Time Darvon Allergy Unknown oral Verified 03/27/22 11:34 swelling doxycycline [DOXYCYCLINE] Allergy Unknown SEVERE Verified 03/27/22 11:34 DIARRHEA Doxycycline Hyclate Allergy Unknown diarrhea, Verified 03/27/22 11:34 severe diarrhea tetracycline [TETRACYCLINE] Allergy Unknown ITCHING, Verified 03/27/22 11:34 unknown Active Medications: Current Medications Cefazolin Sodium/Dextrose (Ancef) 2 gm in 50 mls @ 100 mls/hr IV PREOP ONE Stop: 04/02/22 09:34 Home Medications Medication Instructions Recorded Confirmed Last Taken Type azathioprine 50 mg tablet 100 mg PO DAILY 04/24/20 03/28/22 04/01/22 History omeprazole 20 mg capsule,delayed 20 mg PO DAILY 04/24/20 03/28/22 04/01/22 History release betamethasone dipropionate 0.05 % 1 appl topical DAILY PRN Dry Skin 06/07/20 03/28/22 04/01/22 History topical cream mesalamine 500 mg capsule,extended 1,000 mg PO QID 06/07/20 03/28/22 04/01/22 History release dicyclomine 10 mg capsule 10 mg PO DAILY 04/30/21 03/28/22 04/01/22 History mirabegron 25 mg tablet,extended 50 mg PO DAILY 03/28/22 04/02/22 04/01/22 History release 24 hr (Myrbetriq) Exam Exam Date and Time: April 01, 2022 1038 Pertinent Lab Results Pertinent Lab Results: Laboratory Tests 11/08/21 03/21/22 06:43 09:09 WBC 4.7 L Hgb 12.9 Hct 38.9 Plt Count 306 Sodium 142 Potassium 4.7 D Chloride 106 Carbon Dioxide 29 BUN 7 L Creatinine 0.72 Assessment and Plan Assessment Anesthesia Assessment: Chart Reviewed Final Anesthetic Review Family History of Problems with Anesthesia: No History of Problems with Anesthesia: No Documented by User: Zoltan Ramachandran MD 04/02/22 10:40 [facility] Past Medical History Medical History Anemia Anxiety and depression Asthma Basal cell carcinoma Crohn's disease GERD (gastroesophageal reflux disease) Impaired glucose tolerance Lip abscess Osteopenia Peptic ulcer disease Renal calculi Tobacco abuse Vitamin D deficiency Surgical History Surgical History H/O tubal ligation History of cholecystectomy History of colonoscopy History of hysteroscopy History of lumpectomy of left breast Hx of appendectomy Hx of cystoscopy S/P small bowel resection Social History Social History Housing: House Alcohol intake: current Alcohol intake frequency: does not drink Patient Tobacco Use Status: Current everyday Tobacco user Tobacco use type: Cigarette Cigarette Packs Per Day: 1 Cigarettes Per Day: 20.0 Years Smoked: 50 e-Cigarette/Vaping Use: Never Used Second Hand Smoke Exposure: Yes Are you DNR?: No Advance Directives: No Advance Directives Information Provided: Yes Current occupational status: retired Cognitive needs: No Hearing needs: No Vision needs: Yes Meds Allergies Allergy/AdvReac Type Severity Reaction Status Date / Time Darvon Allergy Unknown oral Verified 03/27/22 11:34 swelling doxycycline [DOXYCYCLINE] Allergy Unknown SEVERE Verified 03/27/22 11:34 DIARRHEA Doxycycline Hyclate Allergy Unknown diarrhea, Verified 03/27/22 11:34 severe diarrhea tetracycline [TETRACYCLINE] Allergy Unknown ITCHING, Verified 03/27/22 11:34 unknown Home Medications Medication Instructions Recorded Confirmed Last Taken Type azathioprine 50 mg tablet 100 mg PO DAILY 04/24/20 03/28/22 04/01/22 History omeprazole 20 mg capsule,delayed 20 mg PO DAILY 04/24/20 03/28/22 04/01/22 History release betamethasone dipropionate 0.05 % 1 appl topical DAILY PRN Dry Skin 06/07/20 03/28/22 04/01/22 History topical cream mesalamine 500 mg capsule,extended 1,000 mg PO QID 06/07/20 03/28/22 04/01/22 History release dicyclomine 10 mg capsule 10 mg PO DAILY 04/30/21 03/28/22 04/01/22 History mirabegron 25 mg tablet,extended 50 mg PO DAILY 03/28/22 04/02/22 04/01/22 History release 24 hr (Myrbetriq) Exam Airway Mallampati Class: II TM Dist: >3cm Neck ROM: Full Loose/Missing/Broken Teeth: Yes (poor dentition, many lower missing in back bilaterally, none loose as per patient) Heart: [id number] Lungs: cta b/l Assessment and Plan Assessment Anesthesia Assessment: Anesthesia Plan Discussed Final Anesthetic Review NPO: Yes ASA Class: III Final Preanesthetic Review: No Changes in Pt Med Stat, Meds/Allgs Chart Reviewed, Consent Obtained/Reviewed and Anes Risks/Benef Reviewed Patient Risk: Intermediate Procedure Risk: Intermediate Assessment/Block/Sedation in SS: Assess/Block/Sedation-SS Anesthetic Plan Anesthetic Plan: GA, MAC: and Agree w/ Assess. and Plan Disposition: Standard PACU
--- NOTE | ~2022-04-02 | XR_ITS ---
EXAMINATION: XR ABDOMEN KUB CLINICAL INDICATION: Preop KUB, left renal stone COMPARISON: 03/03/2022 TECHNIQUE: AP view of the abdomen. FINDINGS: Right upper quadrant surgical clips. 0.6 cm calcification in the left paraspinal region could be associated with a proximal left ureteral calculus seen on previous CT. Right lower quadrant suture line. Phleboliths in the pelvis. Nonobstructive bowel gas pattern. The lung bases are clear. XR/XR KUB IMPRESSION: 0.6 cm calcification in the left paraspinal region could be associated with a proximal left ureteral calculus seen on prior CT.
[2022-04-02 08:58] VITALS: BP 141/78; PULSE 99; RESP 18; TEMP 36.6; O2SAT 99
[2022-04-02] MEDS: Lactated Ringers 1,000 ML 100 ML IVCONT (09:14)
[2022-04-02 11:42] VITALS: BP 122/65; PULSE 92; RESP 20; TEMP 36.6; O2SAT 95
[2022-04-02 11:57] VITALS: BP 142/54; PULSE 82; RESP 18; TEMP 36.4; O2SAT 100
[2022-04-02 12:12] VITALS: BP 152/73; PULSE 82; RESP 18; TEMP 36.4; O2SAT 100
--- NOTE | 2022-04-02 13:46 | P.OP_ITS ---
Operative Note Operative Note Date of Service: 04/02/22 Narrative: PreOperative Diagnosis:? ? Left? Renal stone Post Operative Diagnosis:?Left? Renal stone? Procedure:?Left? ESWL Surgeon:?Dr Catrachita Smith Anesthesia:? mac/sedation Indications for procedure: The patient understands ESWL may be a staged procedure and subsequent intervention may be required based on imaging after ESWL.? They also understand? there is a risk of bleeding to the kidney, infection, damage to adjacent organs, and stone migration following the procedure. - Imaging Left 6 mm proximal ureteral stone Procedure: After informed consent was verified the patient was brought to the operating room and placed in a supine position.? Anesthesia was performed per protocol. Safety pause time-out was performed. Imaging was displayed in the room and laterality confirmed. ESWL was performed.?The stone was visualized on both fluoroscopy and ultr asound.? Shockwave lithotripsy was performed, the first 300 shocks at 60 hertz.? A pause for 3 minutes.? A total of 2000 shocks to a maximum of power of 18 with a maximum rate of 120 hertz.? Good fragmentation of the stone was appreciated. The patient tolerated the procedure well and was transferred to the recovery area upon completion. There was no evidence for flank discoloration. Complications: None
== END 2022-04-02 13:12 | disposition home or self-care (01) ==
PROVIDERS: PCP Internal Medicine; Visit Provider Urology
PROC: (CPT 50590; principal; 2022-04-02 10:40)
DX: N20.0 Calculus of kidney (principal); N32.81 Overactive bladder; R31.29 Other microscopic hematuria; D64.9 Anemia, unspecified; J45.909 Unspecified asthma, uncomplicated; E55.9 Vitamin D deficiency, unspecified; F17.210 Nicotine dependence, cigarettes, uncomplicated; Z79.51 Long term (current) use of inhaled steroids; Z79.899 Other long term (current) drug therapy; Z88.1 Allergy status to other antibiotic agents; Z88.8 Allergy status to other drugs, medicaments and biological substances; Z85.828 Personal history of other malignant neoplasm of skin; Z90.49 Acquired absence of other specified parts of digestive tract
CPT/HCPCS: 50590; 74018; J0690; J2250; J2405; J3010

== ENCOUNTER 2022-04-21 09:16 | Outpatient (REF) | payer MEDICARE, SELFPAY ==
[2022-04-21 09:33] LABS: MANUAL DIFF FLAG NO
[2022-04-21 10:11] LABS: Basophils Absolute Auto 0.1 X10*3/uL (0.0-0.2); Basophils Percent Auto 1.5 % (0-2); Eosinophils Absolute Auto 0.2 X10*3/uL (0.0-0.4); Eosinophils Percent Auto 4.6 % (0-4); Hematocrit 37.2 % (37.0-47.0); Hemoglobin 12.5 g/dl (12.0-16.0); Imm Gran Abs Auto 0.02 X10*3/uL (0.00-0.03); Imm Gran Pct Auto 0.4 % (0.0-0.4); Lymphocytes Absolute Auto 0.8 X10*3/uL (1.2-4.9); Lymphocytes Percent Auto 17.7 % (20-40); Mean Corpuscular HGB Conc 33.6 g/dl (31.0-35.0); Mean Corpuscular Hemoglobin 34.7 pg (27.0-33.0); Mean Corpuscular Volume 103.3 fL (80.0-98.0); Mean Platelet Volume 10.3 fL (9.4-12.3); Monocytes Absolute Auto 0.4 X10*3/uL (0.1-1.2); Monocytes Percent Auto 9.3 % (2-11); Neutrophils Absolute Auto 3.2 x10*3/uL (2.0-8.3); Neutrophils Percent Auto 66.5 % (45-73); Platelet Count 259 X10*3/uL (160-400); Red Cell Distribution Width 13.9 % (11.0-16.0); White Blood Count 4.7 X10*3/uL (4.8-10.8)
[2022-04-21 10:35] LABS: Alanine Aminotransferase 12 U/L (0-31); Alkaline Phosphatase 81 U/L (39-117); Aspartate Amino Transferase 16 U/L (5-31); Bilirubin Direct 0.2 mg/dL (0.0-0.5); Bilirubin Total 0.5 mg/dL (0.0-1.0); Total Protein 6.4 g/dL (6.5-8.0)
== END 2022-04-21 09:17 | disposition home or self-care (01) ==
LOC: HO.LABR 09:16
PROVIDERS: PCP Internal Medicine; Visit Provider Internal Medicine
DX: K50.80 Crohn's disease of both small and large intestine without complications (principal)
CPT/HCPCS: 36415; 80076; 85025

== ENCOUNTER 2022-04-29 08:48 | Outpatient (REF) | payer MEDICARE, SELFPAY ==
[2022-05-02 15:54] LABS: Stone Source KIDNEY STONE
== END 2022-04-29 08:49 | disposition home or self-care (01) ==
LOC: HO.LAB 08:48
PROVIDERS: Visit Provider Urology
DX: N20.0 Calculus of kidney (principal)
CPT/HCPCS: 51798; 82365; 88300; 99212

== ENCOUNTER 2022-05-19 08:36 | Outpatient (REF) | payer MEDICARE, SELFPAY ==
[2022-05-19 08:49] LABS: MANUAL DIFF FLAG NO
[2022-05-19 09:09] LABS: Basophils Absolute Auto 0.1 X10*3/uL (0.0-0.2); Basophils Percent Auto 1.3 % (0-2); Eosinophils Absolute Auto 0.2 X10*3/uL (0.0-0.4); Eosinophils Percent Auto 4.6 % (0-4); Hematocrit 39.9 % (37.0-47.0); Hemoglobin 13.3 g/dl (12.0-16.0); Imm Gran Abs Auto 0.01 X10*3/uL (0.00-0.03); Imm Gran Pct Auto 0.2 % (0.0-0.4); Lymphocytes Absolute Auto 0.8 X10*3/uL (1.2-4.9); Mean Corpuscular HGB Conc 33.3 g/dl (31.0-35.0); Mean Platelet Volume 10.8 fL (9.4-12.3); Monocytes Absolute Auto 0.4 X10*3/uL (0.1-1.2); Monocytes Percent Auto 6.7 % (2-11); Neutrophils Absolute Auto 3.7 x10*3/uL (2.0-8.3); Neutrophils Percent Auto 72.2 % (45-73); Platelet Count 242 X10*3/uL (160-400); Red Cell Distribution Width 13.6 % (11.0-16.0); White Blood Count 5.2 X10*3/uL (4.8-10.8)
[2022-05-19 09:39] LABS: Alanine Aminotransferase 14 U/L (0-31); Albumin Level 4.3 g/dL (3.5-5.0); Alkaline Phosphatase 103 U/L (39-117); Aspartate Amino Transferase 18 U/L (5-31); Bilirubin Direct 0.2 mg/dL (0.0-0.5); Bilirubin Total 0.5 mg/dL (0.0-1.0); Total Protein 6.7 g/dL (6.5-8.0)
== END 2022-05-19 08:37 | disposition home or self-care (01) ==
LOC: HO.LABR 08:36
PROVIDERS: PCP Internal Medicine; Visit Provider Internal Medicine
DX: K50.80 Crohn's disease of both small and large intestine without complications (principal)
CPT/HCPCS: 36415; 80076; 85025

== ENCOUNTER 2022-05-30 08:44 | Outpatient (REF) | payer MEDICARE, SELFPAY ==
--- NOTE | ~2022-05-30 | MM_ITS ---
EXAMINATION: MM SCREENING DIGITAL BREAST TOMOSYNTHESIS, BILATERAL CLINICAL INFORMATION: Screening. Asymptomatic. The lifetime risk of breast cancer based on the Tyrer-Cuzick Model is 3%. COMPARISON: Mammography: 05/28/2021, 05/15/2020, 04/04/2019 TECHNIQUE: Digital breast tomosynthesis is performed in both the craniocaudal and mediolateral oblique views along with computer-aided detection (CAD). Synthesized 2D images are generated from the tomosynthesis. FINDINGS: There are scattered areas of fibroglandular density (ACR BI-RADS breast composition Category b). There are no significant masses, abnormal calcifications, or other abnormalities. Parenchymal pattern is similar to prior studies. Minor asymmetries are stable. There is no developing density or architectural abnormality. The axilla and skin contours are unremarkable. No significant changes. MM/MM tomosynthesis screening BI IMPRESSION: No mammographic evidence of malignancy. ASSESSMENT: BI-RADS 1: Negative RECOMMENDATION: Routine annual mammography screening. This patient's information was entered into a reminder system with a target due date for their next mammogram.
== END 2022-05-30 08:45 | disposition home or self-care (01) ==
LOC: HO.MAMMO 08:44
PROVIDERS: Visit Provider Internal Medicine
DX: Z12.31 Encounter for screening mammogram for malignant neoplasm of breast (principal)
CPT/HCPCS: 77063; 77067

== ENCOUNTER 2022-06-09 07:49 | Outpatient (REF) | payer MEDICARE, SELFPAY ==
--- NOTE | ~2022-06-09 | US_ITS ---
EXAMINATION: US RETROPERITONEAL LIMITED (RENAL ONLY) CLINICAL INFORMATION: Calculus of kidney. COMPARISON: CT abdomen and pelvis without and with contrast 03/03/2022. Ultrasound abdomen complete 03/23/2014. TECHNIQUE: Real-time imaging of the kidneys. FINDINGS: RIGHT KIDNEY: 10.2 x 3.7 x 4.6 cm (SAG x AP x TRV). The kidney is normal in size, contour, and echogenicity. Renal cortical thickness is normal. No renal calculi or hydronephrosis. Benign-appearing 1.1 cm renal cyst, no imaging follow-up recommended. LEFT KIDNEY: 10.1 x 6.8 x 4.2 cm (SAG x AP x TRV). The kidney is normal in size, contour, and echogenicity. Renal cortical thickness is normal. No renal calculi or hydronephrosis. Benign-appearing 1 cm renal cyst, no imaging follow-up recommended. US/US renal BI IMPRESSION: No hydronephrosis or nephrolithiasis.
== END 2022-06-09 07:50 | disposition home or self-care (01) ==
LOC: HO.US 07:49
PROVIDERS: PCP Internal Medicine; Visit Provider Urology
DX: N20.0 Calculus of kidney (principal)
CPT/HCPCS: 76775

== ENCOUNTER → 2022-06-13 08:50 | Outpatient (BNVA) | payer MEDICARE, SELFPAY | PROVIDERS: PCP Internal Medicine; Visit Provider Urology | DX: R31.29 Other microscopic hematuria (principal); N32.81 Overactive bladder; N20.0 Calculus of kidney; Z79.899 Other long term (current) drug therapy | CPT/HCPCS: 99212 ==

== ENCOUNTER 2022-06-19 08:04 | Outpatient (REF) | payer MEDICARE, SELFPAY ==
--- NOTE | ~2022-06-19 | CT_ITS ---
EXAMINATION: CT CHEST SCREENING CLINICAL INFORMATION: One pack per day 30 pack years. COMPARISON: CT lung screening 04/30/2021. TECHNIQUE: Multidetector volumetric CT imaging of the chest is performed without contrast using low dose technique. Additional 2D coronal and sagittal reformatted images and axial 3D maximum intensity projection (MIP) images are generated on the CT workstation. This CT examination was performed using dose optimization techniques as appropriate, variously including the following: *Automated exposure control *Adjustment of mA and/or kV according to patient size (this includes techniques or standardized protocols for targeted exams where dose is matched to indication/reason for exam; i.e. extremities or head) *Use of iterative reconstruction technique DLP: 35 mGy-cm FINDINGS: LUNGS: The lungs are well expanded and clear of acute pneumonic process. There are scattered 1 mm punctate calcifications left upper and lower lobe, right lower lobe, 2 mm subpleural noncalcified nodule left lower lobe axial image 333/6, plate-like atelectasis left lower lobe lateral basal segment. MEDIASTINUM: The thyroid lobes are symmetric and normal. The central trachea and bronchi are widely patent heart size and the great vessels are normal caliber. No pericardial effusion seen. No abnormal-size mediastinal or hilar lymph nodes seen. CORONARY ARTERY CALCIFICATION: Trace coronary artery calcifications are present. PLEURA: There is no pleural effusion. No pleural mass or thickening. AXILLA: No abnormal axillary lymph node seen. The chest wall is unremarkable. UPPER ABDOMEN: Visualized liver, spleen, pancreas and bilateral adrenal glands are unremarkable. OSSEOUS STRUCTURES: No aggressive lytic or sclerotic process seen. There is mild endplate spondylosis mid and lower dorsal spine. CT/CT lung screening IMPRESSION: Scattered punctate calcifications and 2 mm noncalcified nodule left lower lobe. Low-dose annual CT chest. ASSESSMENT: Lung-RADS category 1: Negative RECOMMENDATION: Low-dose annual CT chest.
[2022-06-19 08:15] LABS: MANUAL DIFF FLAG NO
[2022-06-19 09:16] LABS: Basophils Absolute Auto 0.1 X10*3/uL (0.0-0.2); Basophils Percent Auto 2.1 % (0-2); Eosinophils Absolute Auto 0.2 X10*3/uL (0.0-0.4); Hemoglobin 12.8 g/dl (12.0-16.0); Imm Gran Abs Auto 0.01 X10*3/uL (0.00-0.03); Imm Gran Pct Auto 0.3 % (0.0-0.4); Lymphocytes Absolute Auto 0.7 X10*3/uL (1.2-4.9); Lymphocytes Percent Auto 18.2 % (20-40); Mean Corpuscular HGB Conc 32.8 g/dl (31.0-35.0); Mean Corpuscular Hemoglobin 34.9 pg (27.0-33.0); Mean Corpuscular Volume 106.3 fL (80.0-98.0); Mean Platelet Volume 10.6 fL (9.4-12.3); Monocytes Absolute Auto 0.5 X10*3/uL (0.1-1.2); Monocytes Percent Auto 14.1 % (2-11); Neutrophils Absolute Auto 2.3 x10*3/uL (2.0-8.3); Neutrophils Percent Auto 59.3 % (45-73); Platelet Count 268 X10*3/uL (160-400); Red Blood Count 3.67 X10*6/uL (4.20-5.50); Red Cell Distribution Width 13.3 % (11.0-16.0); White Blood Count 3.8 X10*3/uL (4.8-10.8)
[2022-06-19 09:54] LABS: Alanine Aminotransferase 12 U/L (0-31); Albumin Level 4.1 g/dL (3.5-5.0); Alkaline Phosphatase 102 U/L (39-117); Aspartate Amino Transferase 17 U/L (5-31); Bilirubin Direct 0.2 mg/dL (0.0-0.5); Bilirubin Total 0.5 mg/dL (0.0-1.0); Total Protein 6.5 g/dL (6.5-8.0)
== END 2022-06-19 08:05 | disposition home or self-care (01) ==
LOC: HO.CT 08:04
PROVIDERS: Absent Provider Internal Medicine; PCP Internal Medicine; Visit Provider Physician Assistant Medical
DX: Z12.2 Encounter for screening for malignant neoplasm of respiratory organs (principal); F17.210 Nicotine dependence, cigarettes, uncomplicated; K50.80 Crohn's disease of both small and large intestine without complications
CPT/HCPCS: 36415; 71271; 80076; 85025

== ENCOUNTER 2022-07-21 08:06 | Outpatient (REF) | payer MEDICARE, SELFPAY ==
[2022-07-21 08:14] LABS: MANUAL DIFF FLAG NO
[2022-07-21 08:25] LABS: Basophils Absolute Auto 0.1 X10*3/uL (0.0-0.2); Basophils Percent Auto 1.4 % (0-2); Eosinophils Absolute Auto 0.3 X10*3/uL (0.0-0.4); Eosinophils Percent Auto 4.9 % (0-4); Hematocrit 39.5 % (37.0-47.0); Hemoglobin 13.1 g/dl (12.0-16.0); Imm Gran Abs Auto 0.02 X10*3/uL (0.00-0.03); Imm Gran Pct Auto 0.3 % (0.0-0.4); Lymphocytes Absolute Auto 0.7 X10*3/uL (1.2-4.9); Lymphocytes Percent Auto 10.7 % (20-40); Mean Corpuscular HGB Conc 33.2 g/dl (31.0-35.0); Mean Corpuscular Hemoglobin 34.8 pg (27.0-33.0); Mean Corpuscular Volume 105.1 fL (80.0-98.0); Mean Platelet Volume 10.2 fL (9.4-12.3); Monocytes Absolute Auto 0.6 X10*3/uL (0.1-1.2); Monocytes Percent Auto 8.7 % (2-11); Neutrophils Absolute Auto 4.9 x10*3/uL (2.0-8.3); Platelet Count 273 X10*3/uL (160-400); Red Blood Count 3.76 X10*6/uL (4.20-5.50); Red Cell Distribution Width 13.6 % (11.0-16.0); White Blood Count 6.6 X10*3/uL (4.8-10.8)
[2022-07-21 08:47] LABS: Alanine Aminotransferase 15 U/L (0-31); Alkaline Phosphatase 89 U/L (39-117); Aspartate Amino Transferase 21 U/L (5-31); Bilirubin Direct 0.2 mg/dL (0.0-0.5); Bilirubin Total 0.5 mg/dL (0.0-1.0); Total Protein 6.4 g/dL (6.5-8.0)
== END 2022-07-21 08:07 | disposition home or self-care (01) ==
LOC: HO.LABR 08:06
PROVIDERS: PCP Internal Medicine; Visit Provider Internal Medicine
DX: K50.80 Crohn's disease of both small and large intestine without complications (principal)
CPT/HCPCS: 36415; 80076; 85025

== ENCOUNTER 2022-08-19 08:39 | Outpatient (REF) | payer MEDICARE, SELFPAY ==
[2022-08-19 08:53] LABS: MANUAL DIFF FLAG NO
[2022-08-19 09:41] LABS: Basophils Absolute Auto 0.1 X10*3/uL (0.0-0.2); Basophils Percent Auto 1.7 % (0-2); Eosinophils Absolute Auto 0.3 X10*3/uL (0.0-0.4); Eosinophils Percent Auto 5.3 % (0-4); Hematocrit 40.1 % (37.0-47.0); Hemoglobin 13.5 g/dl (12.0-16.0); Imm Gran Abs Auto 0.01 X10*3/uL (0.00-0.03); Imm Gran Pct Auto 0.2 % (0.0-0.4); Lymphocytes Absolute Auto 0.7 X10*3/uL (1.2-4.9); Lymphocytes Percent Auto 15.4 % (20-40); Mean Corpuscular HGB Conc 33.7 g/dl (31.0-35.0); Mean Corpuscular Hemoglobin 34.7 pg (27.0-33.0); Mean Corpuscular Volume 103.1 fL (80.0-98.0); Mean Platelet Volume 10.7 fL (9.4-12.3); Monocytes Absolute Auto 0.6 X10*3/uL (0.1-1.2); Monocytes Percent Auto 12.2 % (2-11); Neutrophils Absolute Auto 3.1 x10*3/uL (2.0-8.3); Neutrophils Percent Auto 65.2 % (45-73); Platelet Count 295 X10*3/uL (160-400); Red Blood Count 3.89 X10*6/uL (4.20-5.50); Red Cell Distribution Width 13.2 % (11.0-16.0); White Blood Count 4.7 X10*3/uL (4.8-10.8)
[2022-08-19 10:32] LABS: Alanine Aminotransferase 15 U/L (0-31); Albumin Level 4.1 g/dL (3.5-5.0); Alkaline Phosphatase 102 U/L (39-117); Aspartate Amino Transferase 20 U/L (5-31); Bilirubin Direct 0.2 mg/dL (0.0-0.5); Bilirubin Total 0.6 mg/dL (0.0-1.0); Total Protein 6.6 g/dL (6.5-8.0)
== END 2022-08-19 08:40 | disposition home or self-care (01) ==
LOC: HO.LABR 08:39
PROVIDERS: PCP Internal Medicine; Visit Provider Internal Medicine
DX: K50.80 Crohn's disease of both small and large intestine without complications (principal)
CPT/HCPCS: 36415; 80076; 85025

== ENCOUNTER → 2022-08-22 13:17 | Outpatient (BNVA) | payer MEDICARE, SELFPAY | PROVIDERS: PCP Internal Medicine; Visit Provider Urology | DX: R82.992 Hyperoxaluria (principal); Z87.442 Personal history of urinary calculi | CPT/HCPCS: 99212 ==

== ENCOUNTER 2022-09-19 08:59 | Outpatient (REF) | payer MEDICARE, SELFPAY ==
[2022-09-19 09:11] LABS: MANUAL DIFF FLAG NO
[2022-09-19 09:19] LABS: Basophils Absolute Auto 0.1 X10*3/uL (0.0-0.2); Basophils Percent Auto 1.4 % (0-2); Eosinophils Absolute Auto 0.2 X10*3/uL (0.0-0.4); Eosinophils Percent Auto 4.3 % (0-4); Hematocrit 40.7 % (37.0-47.0); Hemoglobin 13.7 g/dl (12.0-16.0); Imm Gran Abs Auto 0.02 X10*3/uL (0.00-0.03); Imm Gran Pct Auto 0.4 % (0.0-0.4); Lymphocytes Absolute Auto 0.6 X10*3/uL (1.2-4.9); Lymphocytes Percent Auto 12.4 % (20-40); Mean Corpuscular HGB Conc 33.7 g/dl (31.0-35.0); Mean Corpuscular Hemoglobin 34.4 pg (27.0-33.0); Mean Corpuscular Volume 102.3 fL (80.0-98.0); Mean Platelet Volume 9.7 fL (9.4-12.3); Monocytes Absolute Auto 0.5 X10*3/uL (0.1-1.2); Monocytes Percent Auto 8.9 % (2-11); Neutrophils Absolute Auto 3.7 x10*3/uL (2.0-8.3); Neutrophils Percent Auto 72.6 % (45-73); Platelet Count 306 X10*3/uL (160-400); Red Blood Count 3.98 X10*6/uL (4.20-5.50); Red Cell Distribution Width 14.1 % (11.0-16.0); White Blood Count 5.1 X10*3/uL (4.8-10.8)
[2022-09-19 09:49] LABS: Alanine Aminotransferase 19 U/L (0-31); Albumin Level 4.4 g/dL (3.5-5.0); Alkaline Phosphatase 100 U/L (39-117); Aspartate Amino Transferase 23 U/L (5-31); Bilirubin Direct 0.3 mg/dL (0.0-0.5); Bilirubin Total 0.7 mg/dL (0.0-1.0); Total Protein 6.7 g/dL (6.5-8.0)
== END 2022-09-19 09:00 | disposition home or self-care (01) ==
LOC: HO.LABR 08:59
PROVIDERS: PCP Internal Medicine; Visit Provider Internal Medicine
DX: K50.80 Crohn's disease of both small and large intestine without complications (principal)
CPT/HCPCS: 36415; 80076; 85025

== ENCOUNTER 2022-10-20 08:52 | Outpatient (REF) | payer MEDICARE, SELFPAY ==
[2022-10-20 09:03] LABS: MANUAL DIFF FLAG NO
[2022-10-20 09:43] LABS: Basophils Absolute Auto 0.1 X10*3/uL (0.0-0.2); Basophils Percent Auto 1.6 % (0-2); Eosinophils Absolute Auto 0.3 X10*3/uL (0.0-0.4); Eosinophils Percent Auto 5.2 % (0-4); Hematocrit 38.5 % (37.0-47.0); Imm Gran Abs Auto 0.01 X10*3/uL (0.00-0.03); Imm Gran Pct Auto 0.2 % (0.0-0.4); Lymphocytes Absolute Auto 0.7 X10*3/uL (1.2-4.9); Mean Corpuscular HGB Conc 33.8 g/dl (31.0-35.0); Mean Corpuscular Hemoglobin 34.8 pg (27.0-33.0); Mean Corpuscular Volume 102.9 fL (80.0-98.0); Mean Platelet Volume 10.5 fL (9.4-12.3); Monocytes Absolute Auto 0.5 X10*3/uL (0.1-1.2); Monocytes Percent Auto 10.2 % (2-11); Neutrophils Absolute Auto 3.4 x10*3/uL (2.0-8.3); Neutrophils Percent Auto 68.8 % (45-73); Platelet Count 282 X10*3/uL (160-400); Red Blood Count 3.74 X10*6/uL (4.20-5.50); Red Cell Distribution Width 14.7 % (11.0-16.0)
[2022-10-20 10:22] LABS: Alanine Aminotransferase 21 U/L (0-31); Alkaline Phosphatase 91 U/L (39-117); Aspartate Amino Transferase 23 U/L (5-31); Bilirubin Direct 0.2 mg/dL (0.0-0.5); Bilirubin Total 0.7 mg/dL (0.0-1.0); Total Protein 6.4 g/dL (6.5-8.0)
== END 2022-10-20 08:53 | disposition home or self-care (01) ==
LOC: HO.LABR 08:52
PROVIDERS: PCP Internal Medicine; Visit Provider Internal Medicine
DX: K50.80 Crohn's disease of both small and large intestine without complications (principal)
CPT/HCPCS: 36415; 80076; 85025

== ENCOUNTER 2022-11-04 17:53 | Emergency (ER) | payer MEDICARE, SELFPAY ==
--- NOTE | ~2022-11-04 | CT_ITS ---
EXAMINATION: CT ABDOMEN AND PELVIS WITH CONTRAST CLINICAL INFORMATION: Possible abscess in the anterior abdominal wall. COMPARISON: 03/03/2022 TECHNIQUE: Multidetector volumetric images were obtained from the superior aspect of the liver through the pubic symphysis following administration 85 mL of Omnipaque 350 intravenous contrast. Sagittal and coronal reformatted images were obtained on the technologist's workstation. Oral contrast: No This CT examination was performed using dose optimization techniques as appropriate, variously including the following: *Automated exposure control *Adjustment of mA and/or kV according to patient size (this includes techniques or standardized protocols for targeted exams where dose is matched to indication/reason for exam; i.e. extremities or head) *Use of iterative reconstruction technique DLP: 384 mGy-cm FINDINGS: LUNG BASES: The visualized lung bases are unremarkable. LIVER, GALLBLADDER, AND BILIARY TREE: The liver is normal in size, shape, and attenuation. No focal hepatic lesion or biliary ductal dilatation is present. Cholecystectomy. PANCREAS: Moderate atrophy. No focal abnormality. SPLEEN: Unremarkable. ADRENAL GLANDS: Unremarkable. KIDNEYS AND URETERS: The kidneys are normal in size, shape, and attenuation. No hydronephrosis, hydroureter, or calculi seen. No perinephric stranding. Multiple hypoattenuating lesions in both kidneys consistent with simple cysts. No specific follow-up recommended. BLADDER: Unremarkable. GASTROINTESTINAL TRACT: The stomach is unremarkable. Normal caliber small bowel. No obstruction. No colonic wall thickening or inflammation. No free air. No free fluid. ABDOMINAL WALL: No significant hernia is appreciated. Prominent inflammation in the subxiphoid region of the anterior abdominal wall. No drainable collection. LYMPH NODES: Normal. VASCULAR: Normal caliber aorta with moderate atherosclerotic calcification. PELVIC VISCERA: The uterus and adnexa are unremarkable. OSSEOUS STRUCTURES: No acute or suspicious osseous abnormality. Degenerative changes throughout the spine. Multilevel vacuum disc phenomenon. CT/CT abdomen pelvis w IV con IMPRESSION: Prominent inflammation in the subxiphoid region of the anterior abdominal wall. No drainable collection. Fleischner guidelines were followed.
[2022-11-04 19:13] VITALS: BP 152/77; PULSE 104; RESP 18; TEMP 37.1; O2SAT 96; BMI 19.4
--- NOTE | 2022-11-04 19:13 | ED_ITS ---
HPI - Skin/Abscess/Foreign Bdy General Chief complaint: Skin/Abscess/Foreign Body Stated complaint: abd pain Time Seen by Provider: 11/04/22 23:20 History of Present Illness HPI narrative: Patient is a 67-year-old female presents today with having redness to the abdomen. Patient had a possible insect bite to the epigastric area. Then had increased swelling and redness over the last 2-3 days. She has a history of Crohn disease has a history of being on azathioprine. Patient denies any fever chills any systemic complaints. He Related Data Home Medications Medication Instructions Recorded Confirmed azathioprine 50 mg tablet 100 mg PO DAILY 04/24/20 11/04/22 omeprazole 20 mg capsule,delayed 20 mg PO DAILY 04/24/20 11/04/22 release betamethasone dipropionate 0.05 % 1 appl topical DAILY PRN Dry Skin 06/07/20 11/04/22 topical cream mesalamine 500 mg capsule,extended 1,000 mg PO QID 06/07/20 11/04/22 release dicyclomine 10 mg capsule 10 mg PO DAILY 04/30/21 11/04/22 Previous Rx's Medication Instructions Recorded mirabegron 50 mg tablet,extended 50 mg PO DAILY 90 days #90 tabs 05/12/22 release 24 hr (Myrbetriq) tramadol 50 mg tablet 50 mg PO DAILY 90 days #90 tabs 05/14/22 cyanocobalamin (vitamin B-12) 1,000 mcg IM Q4W 90 days #4 mL 05/19/22 1,000 mcg/mL injection solution pyridoxine (vitamin B6) 100 mg 100 mg PO DAILY #90 tabs 08/22/22 tablet raloxifene 60 mg tablet 60 mg PO DAILY #90 tabs 10/10/22 buspirone 10 mg tablet 10 mg PO DAILY #90 tabs 10/29/22 clindamycin HCl 300 mg capsule 300 mg PO Q6H 7 days #28 caps 11/05/22 Allergies Allergy/AdvReac Type Severity Reaction Status Date / Time Darvon Allergy Unknown oral Verified 08/22/22 13:33 swelling doxycycline [DOXYCYCLINE] Allergy Unknown SEVERE Verified 08/22/22 13:33 DIARRHEA Doxycycline Hyclate Allergy Unknown diarrhea, Verified 08/22/22 13:33 severe diarrhea tetracycline [TETRACYCLINE] Allergy Unknown ITCHING, Verified 08/22/22 13:33 unknown Review of Systems Review of Systems: No fever no chills no systemic complaints Yes all other systems are reviewed and are negative [facility] Past Medical History Attestation statement: The following information was validated with the patient. Medical History Adult general medical exam Anemia Anxiety and depression Asthma Basal cell carcinoma Crohn's disease Flank pain GERD (gastroesophageal reflux disease) Impaired glucose tolerance Lip abscess Osteopenia Palpitations Peptic ulcer disease Renal calculi Tobacco abuse Vitamin D deficiency Surgical History H/O tubal ligation History of cholecystectomy History of colonoscopy History of hysteroscopy History of lumpectomy of left breast Hx of appendectomy Hx of cystoscopy S/P small bowel resection Social History Social History Housing: House Alcohol intake: current Alcohol intake frequency: holidays/special occasions only Patient Tobacco Use Status: Current everyday Tobacco user Tobacco use type: Cigarette Cigarette Packs Per Day: 1 Cigarettes Per Day: 20.0 Years Smoked: 50 Smoked in Last 30 Days: Yes e-Cigarette/Vaping Use: Never Used Second Hand Smoke Exposure: Yes Use of substances other than those prescribed or required for medical reasons: No Advance Directives: No Advance Directives Information Provided: No Current occupational status: retired Cognitive needs: No Hearing needs: No Vision needs: Yes Physical Exam Vital Signs: Vital Signs: Last Vital Signs Temp 98.7 F 11/04/22 19:13 Pulse 104 H 11/04/22 19:13 Resp 18 11/04/22 19:13 BP 152/77 H 11/04/22 19:13 Pulse Ox 96 11/04/22 19:13 O2 Del Method Room Air 11/04/22 19:13 BMI result Body Mass Index 19.4 Appearance: Alert. Oriented X3. No acute distress. Eyes: Pupils equal, round and reactive to light. ENT: Pharynx normal. Neck: Normal inspection. Neck supple. No lymph nodes noted. No crepitus CVS: Normal heart rate and rhythm. Pulses normal. Normal S1 and S2 Respiratory: No respiratory distress. Breath sounds normal. No Wheezing. No rales Abdomen: Soft and nontender. No rigidity. No distention. good BS x4 Skin: Positive area of induration around the xiphoid process extending to the epigastric area with surrounding redness and warmth to touch. The area is blanching. approximately 4 cm x 5 cm in size. Extremities: No lower extremity edema. Neurovascular intact to all extremities. No Lacerations. No Rash Neuro: Oriented X 3. No motor deficit. No sensory deficit. Moving all extermities. No slurred speech Course Course Course Narrative: RME - 67 yo female presents to the ER for evaluation of 10/10 abdominal pain due what she thinks is a bug bite, worsening over the last 3 days despite using warm compresses. Area on abdomen is warm, erythematous and indurated, small pustule noted. Plan: basic labs, Lyme test, I&D Medications Administered Discontinued Medications Generic Name Dose Route Start Last Admin Trade Name Freq PRN Reason Stop Dose Admin Clindamycin Phosphate 600 mg in 50 mls @ 100 mls/hr 11/04/22 23:41 11/05/22 00:28 Cleocin IV 11/05/22 00:10 100 mls/hr ONCE ONE Administration Iohexol 85 ml 11/05/22 00:15 11/05/22 00:16 Iohexol 350 Mg/Ml 100 Ml Infus..Btl IV 11/05/22 00:16 85 ml ONCE ONE Administration Medical Decision Making Medical Decision Making MDM Narrative: Patient had an indurated area over the epigastrium. An ultrasound probe was placed on the redness and indurated area. There is no discernible abscess noted on ultrasound. Because patient is on azathioprine. CT scan of the abdomen pelvis was done. There is no tracks is no fistula noted. Will start patient on clindamycin for presumptive cellulitis. Patient is allergic to doxycycline. Currently in stable condition. Close follow-up on an outpatient basis. Differential Diagnosis Differential Diagnoses: The differential diagnosis associated with the presentation includes Cellulitis, abscess, fistula Lab Data 11/04/22 20:13 11/04/22 20:13 Labs: Lab Results 11/04/22 11/04/22 Range/Units 20:13 20:13 WBC 9.9 (4.8-10.8) X10*3/uL RBC 3.76 L (4.20-5.50) X10*6/uL Hgb 13.0 (12.0-16.0) g/dl Hct 38.3 (37.0-47.0) % MCV 101.9 H (80.0-98.0) fL MCH 34.6 H (27.0-33.0) pg MCHC 33.9 (31.0-35.0) g/dl RDW 14.8 (11.0-16.0) % Plt Count 251 (160-400) X10*3/uL MPV 10.0 (9.4-12.3) fL Absolute Nucleated RBC 0.000 (0.0-0.012) X10*3/uL Nucleated RBC % (auto) 0.0 (0.0-0.2) /100WBC Sodium 143 (135-145) mmol/L Potassium 3.9 (3.3-5.1) mmol/L Chloride 109 H (96-108) mmol/L Carbon Dioxide 27 (22-29) mmol/L Anion Gap 11 L (12-20) BUN 6 L (9-16) mg/dL Creatinine 0.68 (0.5-1.4) mg/dL Estim Creat Clear Calc 68.0 Estimated GFR > 60 Random Glucose 123 H (60-115) mg/dL Calcium 9.4 (8.4-10.2) mg/dL Total Bilirubin 0.8 (0.0-1.0) mg/dL AST 18 (5-31) U/L ALT 15 (0-31) U/L Alkaline Phosphatase 91 (39-117) U/L Total Protein 6.8 (6.5-8.0) g/dL Albumin 4.1 (3.5-5.0) g/dL Discharge Plan Discharge Clinical Impression: Cellulitis Patient Disposition: Home, Self-Care Instructions: Cellulitis (DC) Prescriptions: New clindamycin HCl 300 mg capsule 300 mg PO Q6H 7 Days Qty: 28 0RF No Action Myrbetriq 50 mg tablet extended release 24 hr 50 mg PO DAILY 90 Days Qty: 90 1RF tramadol 50 mg tablet 50 mg PO DAILY 90 Days Qty: 90 1RF raloxifene 60 mg tablet 60 mg PO DAILY Qty: 90 2RF buspirone 10 mg tablet 10 mg PO DAILY Qty: 90 0RF betamethasone dipropionate 0.05 % cream 1 appl topical DAILY PRN (Reason: Dry Skin) cyanocobalamin (vitamin B-12) 1,000 mcg/mL solution 1,000 mcg IM Q4W 90 Days Qty: 4 3RF omeprazole 20 mg capsule,delayed release(DR/EC) 20 mg PO DAILY azathioprine 50 mg tablet 100 mg PO DAILY mesalamine 500 mg capsule, extended release 1,000 mg PO QID dicyclomine 10 mg capsule 10 mg PO DAILY pyridoxine (vitamin B6) 100 mg tablet 100 mg PO DAILY Qty: 90 3RF Referrals: Po,Tae Méndez MD [Primary Care Provider] - 11/07/22
[2022-11-04 20:19] LABS: Hematocrit 38.3 % (37.0-47.0); Mean Corpuscular HGB Conc 33.9 g/dl (31.0-35.0); Mean Corpuscular Hemoglobin 34.6 pg (27.0-33.0); Mean Corpuscular Volume 101.9 fL (80.0-98.0); Platelet Count 251 X10*3/uL (160-400); Red Blood Count 3.76 X10*6/uL (4.20-5.50); Red Cell Distribution Width 14.8 % (11.0-16.0); White Blood Count 9.9 X10*3/uL (4.8-10.8)
[2022-11-04 20:34] LABS: Alanine Aminotransferase 15 U/L (0-31); Albumin Level 4.1 g/dL (3.5-5.0); Alkaline Phosphatase 91 U/L (39-117); Anion Gap 11 (12-20); Aspartate Amino Transferase 18 U/L (5-31); Bilirubin Total 0.8 mg/dL (0.0-1.0); Blood Urea Nitrogen 6 mg/dL (9-16); Calcium 9.4 mg/dL (8.4-10.2); Carbon Dioxide 27 mmol/L (22-29); Chloride 109 mmol/L (96-108); Estimated Glomerular Filt Rate > 60; Glucose Random 123 mg/dL (60-115); Potassium 3.9 mmol/L (3.3-5.1); Sodium 143 mmol/L (135-145); Total Protein 6.8 g/dL (6.5-8.0)
[2022-11-05] MEDS: iohexoL 350 MG/ML 100 ML INFUS..BTL 85 ML IV (00:16)
[2022-11-05] MEDS: Clindamycin Phosphate/D5W 600 MG/50 ML PIGGYBACK 100 MG IV (00:28)
[2022-11-10 21:29] LABS: Lyme Abs Screen <0.90 index
== END 2022-11-05 01:14 | disposition home or self-care (01) ==
PROVIDERS: Emergency Provider Emergency Medicine Emergency Medical Services; PCP Internal Medicine
DX: L03.311 Cellulitis of abdominal wall (principal); R10.13 Epigastric pain; F17.210 Nicotine dependence, cigarettes, uncomplicated
CPT/HCPCS: 36415; 74177; 80053; 85027; 86617; 86618; 96365; 99284; Q9967

== ENCOUNTER 2022-11-21 07:13 | Outpatient (REF) | payer MEDICARE, SELFPAY ==
[2022-11-21 07:23] LABS: MANUAL DIFF FLAG NO
[2022-11-21 08:40] LABS: Basophils Absolute Auto 0.1 X10*3/uL (0.0-0.2); Basophils Percent Auto 1.6 % (0-2); Eosinophils Absolute Auto 0.2 X10*3/uL (0.0-0.4); Eosinophils Percent Auto 6.1 % (0-4); Hematocrit 37.1 % (37.0-47.0); Hemoglobin 12.5 g/dl (12.0-16.0); Imm Gran Abs Auto 0.01 X10*3/uL (0.00-0.03); Imm Gran Pct Auto 0.3 % (0.0-0.4); Lymphocytes Absolute Auto 0.8 X10*3/uL (1.2-4.9); Mean Corpuscular HGB Conc 33.7 g/dl (31.0-35.0); Mean Corpuscular Hemoglobin 34.5 pg (27.0-33.0); Mean Corpuscular Volume 102.5 fL (80.0-98.0); Mean Platelet Volume 10.3 fL (9.4-12.3); Monocytes Absolute Auto 0.5 X10*3/uL (0.1-1.2); Monocytes Percent Auto 13.8 % (2-11); Neutrophils Absolute Auto 2.2 x10*3/uL (2.0-8.3); Neutrophils Percent Auto 57.2 % (45-73); Platelet Count 327 X10*3/uL (160-400); Red Blood Count 3.62 X10*6/uL (4.20-5.50); Red Cell Distribution Width 15.4 % (11.0-16.0); White Blood Count 3.8 X10*3/uL (4.8-10.8)
[2022-11-21 09:10] LABS: Alanine Aminotransferase 16 U/L (0-31); Albumin Level 3.9 g/dL (3.5-5.0); Alkaline Phosphatase 80 U/L (39-117); Aspartate Amino Transferase 22 U/L (5-31); Bilirubin Direct 0.2 mg/dL (0.0-0.5); Bilirubin Total 0.5 mg/dL (0.0-1.0); Total Protein 6.6 g/dL (6.5-8.0)
[2022-11-21 09:53] LABS: Estimated Average Glucose 111 mg/dL; Hemoglobin A1c % 5.5 %
== END 2022-11-21 07:14 | disposition home or self-care (01) ==
LOC: HO.LABR 07:13
PROVIDERS: Nurse Practitioner Family; PCP Internal Medicine; Visit Provider Internal Medicine
DX: K50.80 Crohn's disease of both small and large intestine without complications (principal); R73.02 Impaired glucose tolerance (oral)
CPT/HCPCS: 36415; 80076; 83036; 85025

== ENCOUNTER 2022-12-22 08:14 | Outpatient (AMB) | payer MEDICARE, SELFPAY ==
--- NOTE | 2022-12-22 08:29 | AM.OFFVISNUR ---
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
== END 2022-12-22 08:30 | disposition home or self-care (01) ==
PROVIDERS: PCP Internal Medicine; Visit Provider Internal Medicine
DX: E53.8 Deficiency of other specified B group vitamins (principal)
CPT/HCPCS: 96372; J3420

== ENCOUNTER 2022-12-24 08:57 | Outpatient (AMB) | payer MEDICARE, SELFPAY ==
--- NOTE | 2022-12-24 09:11 | MHC.OFFVIS ---
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 States she has a lump that appeared about 6 months ago. No injury she can recall. States it has increase in size and causes little pain with lifting objections. No weakness, numbness or tingling. Patiemnt would like to discuss if this could be removed. 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 She says she has a mass on the volar aspect of her left wrist, which she first noticed ~6 months ago. She says this has increased in size and she has some pain with heavy lifting activities. She denies any weakness, numbness, tingling, or limited ROM. [facility] Medical History Adult general medical exam Anemia Anxiety and depression Asthma Basal cell carcinoma Crohn's disease Flank pain GERD (gastroesophageal reflux disease) Impaired glucose tolerance Lip abscess Osteopenia Palpitations Peptic ulcer disease Renal calculi Tobacco abuse Vitamin D deficiency Surgical History H/O tubal ligation History of cholecystectomy History of colonoscopy History of hysteroscopy History of lumpectomy of left breast Hx of appendectomy Hx of cystoscopy S/P small bowel resection Social History (Updated 12/24/22 @ 09:15 by KRUNAL De Los Santos) Housing: House Alcohol intake: current Alcohol intake frequency: holidays/special occasions only Patient Tobacco Use Status: Current everyday Tobacco user Tobacco use type: Cigarette Cigarette Packs Per Day: 1 Cigarettes Per Day: 20.0 Years Smoked: 50 e-Cigarette/Vaping Use: Never Used Second Hand Smoke Exposure: Yes Current occupational status: 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 Cognitive needs: No Hearing needs: No Vision needs: Yes Review of Systems Const All systems reviewed & are unremarkable except as noted in HPI and below Physical Exam Vital Signs: BMI result Body Mass Index 19.5 Const General: cooperative, healthy appearing and no acute distress Orientation/consciousness: patient oriented x3 HEENT Head: Yes normocephalic and Yes atraumatic Eyes EOM: EOMs intact bilaterally Resp Effort & Inspection: normal respiratory effort and able to speak in complete sentences Cardio Jugular venous distension: no JVD Skin General skin exam: turgor normal Rashes: no rashes Neuro General: patient oriented x3 Extrem Other: Evaluation of Left Upper Extremity: The patient is alert, oriented, and in no acute distress Neuro: Median, Ulnar, Radial nerves motor and sensory intact and sensation is normal to the tips of all digits Vascular: Cap refill brisk ROM: She can make a fist and extend all her digits No locking or catching Skin: No lacerations or abrasions. General: No Ecchymosis. No Erythema or evidence of infection. She has a left volar wrist ganglion, measuring ~1.2cm in diameter, ~2cm proximal to the distal wrist crease, in line with the FCR tendon. On Epifanio's test, there is good fill from the ulnar artery Psych Appearance: grossly normal Affect: normal affect Attitude: cooperative Assessment & Plan Assessment & Plan (1) Ganglion cyst of volar aspect of left wrist: Code(s): M67.432 - Ganglion, left wrist Plan Assessment & Plan: 1. Left volar wrist ganglion Measuring ~1.2cm in diameter I educated her about this condition I discussed operative and non-operative treatment options The patient would like to proceed with surgery The risks and benefits of operative treatment were discussed with the patient and the patient wishes to proceed with surgery. These risks include, but are not limited to risk of damage to blood vessels, nerves, tendons, infection, recurrence, incomplete relief of preoperative symptoms, persistent pain, possible need for further surgery and the risks associated with regional blocks and anesthesia. The plan is to take the patient to the operating room sometime in the next few weeks for the following procedures: 1. Left volar wrist ganglion excision, under general All of the preoperative paperwork including the consent was filled out today. All the patient's questions were answered. The patient understands that they will be contacted by our cup setter lockstitch soon to schedule this procedure She denies Diabetes, blood thinners, asthma, heart, lung, kidney issues She has a hx of kidney stones Scribed for Tish Vega MD by Rowdy Rogers, biomedical engineering director, on 12/24/22 at 9:50 AM, EST. Coding Level of Care Code New Pt Level 4 (00381) Diagnoses Ganglion cyst of volar aspect of left wrist M67.432
[2022-12-24 09:12] VITALS: BMI 19.5
== END 2022-12-24 09:54 | disposition home or self-care (01) ==
PROVIDERS: PCP Internal Medicine; Visit Provider Orthopaedic Surgery
DX: M67.432 Ganglion, left wrist (principal)
CPT/HCPCS: 99204

== ENCOUNTER → 2022-12-24 08:57 | Outpatient (BNVA) | payer MEDICARE, SELFPAY | PROVIDERS: PCP Internal Medicine; Visit Provider Orthopaedic Surgery | DX: M67.432 Ganglion, left wrist (principal) | CPT/HCPCS: 99202 ==

== ENCOUNTER 2023-01-21 08:16 | Outpatient (AMB) | payer MEDICARE, SELFPAY ==
--- NOTE | 2023-01-21 09:07 | AM.OFFVISNUR ---
Intake Intake Visit Reasons: b12 Allergies Darvon Allergy (Unknown, Verified 12/24/22 09:15) oral swelling doxycycline [DOXYCYCLINE] Allergy (Unknown, Verified 12/24/22 09:15) SEVERE DIARRHEA Doxycycline Hyclate Allergy (Unknown, Verified 12/24/22 09:15) diarrhea, severe diarrhea tetracycline [TETRACYCLINE] Allergy (Unknown, Verified 12/24/22 09:15) ITCHING, unknown Office Meds cyanocobalamin (vitamin B-12) Performing Provider: Tae Duarte MD Administered by: Aimee Thorne MD on 01/21/23 09:08 Dose Route Admin Location Lot Number Expiration Date [employer] 1,000 mcg IM left arm [id number] 08/31/23 26114-544-22 [employer] Coding Diagnoses Assessment & Plan Assessment & Plan Orders: Orders AMB Vitamin B12 Injection Patient Supplied Today E53.8 - Deficiency of other specified B group vitamins
== END 2023-01-21 09:16 | disposition home or self-care (01) ==
PROVIDERS: PCP Internal Medicine; Visit Provider Internal Medicine
DX: E53.8 Deficiency of other specified B group vitamins (principal)
CPT/HCPCS: 96372; J3420

== ENCOUNTER 2023-01-21 09:34 | Outpatient (REF) | payer MEDICARE, SELFPAY ==
[2023-01-21 09:49] LABS: MANUAL DIFF FLAG NO
[2023-01-21 10:02] LABS: Basophils Absolute Auto 0.1 X10*3/uL (0.0-0.2); Basophils Percent Auto 1.4 % (0-2); Eosinophils Absolute Auto 0.3 X10*3/uL (0.0-0.4); Eosinophils Percent Auto 4.8 % (0-4); Hematocrit 38.2 % (37.0-47.0); Imm Gran Abs Auto 0.02 X10*3/uL (0.00-0.03); Imm Gran Pct Auto 0.4 % (0.0-0.4); Lymphocytes Percent Auto 18.6 % (20-40); Mean Corpuscular Hemoglobin 34.8 pg (27.0-33.0); Mean Corpuscular Volume 102.1 fL (80.0-98.0); Mean Platelet Volume 10.1 fL (9.4-12.3); Monocytes Absolute Auto 0.5 X10*3/uL (0.1-1.2); Monocytes Percent Auto 8.9 % (2-11); Neutrophils Absolute Auto 3.4 x10*3/uL (2.0-8.3); Neutrophils Percent Auto 65.9 % (45-73); Platelet Count 256 X10*3/uL (160-400); Red Blood Count 3.74 X10*6/uL (4.20-5.50); Red Cell Distribution Width 14.2 % (11.0-16.0); White Blood Count 5.2 X10*3/uL (4.8-10.8)
[2023-01-21 10:28] LABS: Alanine Aminotransferase 15 U/L (0-31); Albumin Level 4.1 g/dL (3.5-5.0); Alkaline Phosphatase 74 U/L (39-117); Aspartate Amino Transferase 21 U/L (5-31); Bilirubin Direct 0.2 mg/dL (0.0-0.5); Bilirubin Total 0.6 mg/dL (0.0-1.0); Total Protein 6.7 g/dL (6.5-8.0)
== END 2023-01-21 09:35 | disposition home or self-care (01) ==
LOC: HO.LABR 09:34
PROVIDERS: PCP Internal Medicine; Visit Provider Internal Medicine
DX: K50.80 Crohn's disease of both small and large intestine without complications (principal); Z51.81 Encounter for therapeutic drug level monitoring
CPT/HCPCS: 36415; 80076; 85025

== ENCOUNTER 2023-01-22 06:04 | Day surgery (SDC) | payer MEDICARE, SELFPAY ==
[2023-01-20 07:16] VITALS: BMI 19.5
--- NOTE | 2023-01-21 08:51 | P.CONAN_ITS ---
Documented by User: Nishi Cyole NP 01/21/23 08:52 HPI - Anesthesia Eval Consult details Narrative: 67yo F for Left Volar Cyst ganglion excision PMFSH Active Problems Active Problems: All Active Problems (Updated 12/24/22 @ 09:51 by Rowdy Rogers) Ganglion cyst of volar aspect of left wrist (Acute) Mass of left wrist (Acute) Cellulitis of abdominal wall (Acute) Subcutaneous nodule of abdominal wall (Acute) Ganglion cyst (Acute) Post-menopausal (Acute) History of renal calculi (Acute) Hyperoxaluria (Acute) B12 deficiency (Acute) Overactive bladder (Acute) Post-menopausal bleeding (Acute) Facial abscess (Acute) Cystic endometrial hyperplasia (Acute) Microscopic hematuria (Acute) Abnormal ultrasound of endometrium (Acute) Kidney stone on left side (Acute) Osteopenia (Acute) Crohn's disease (Acute) Tobacco abuse (Acute) Impaired glucose tolerance (Acute) Anxiety and depression (Acute) Asthma (Acute) GERD (gastroesophageal reflux disease) (Acute) Past Medical History Medical History Adult general medical exam Anemia Anxiety and depression Asthma Basal cell carcinoma Crohn's disease Flank pain GERD (gastroesophageal reflux disease) Impaired glucose tolerance Lip abscess Osteopenia Palpitations Peptic ulcer disease Renal calculi Tobacco abuse Vitamin D deficiency Family History Family history of problems with anesthesia: No Surgical History Surgical History H/O tubal ligation History of cholecystectomy History of colonoscopy History of hysteroscopy History of lumpectomy of left breast Hx of appendectomy Hx of cystoscopy S/P small bowel resection History of Problems with Anesthesia: No Social History Social History Housing: House Alcohol intake: current Alcohol intake frequency: holidays/special occasions only Patient Tobacco Use Status: Current everyday Tobacco user Tobacco use type: Cigarette Cigarette Packs Per Day: 1 Cigarettes Per Day: 20.0 Years Smoked: 50 e-Cigarette/Vaping Use: Never Used Second Hand Smoke Exposure: Yes Current occupational status: 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 Cognitive needs: No Hearing needs: No Vision needs: Yes Meds Allergies Allergy/AdvReac Type Severity Reaction Status Date / Time Darvon Allergy Unknown oral Verified 12/24/22 09:15 swelling doxycycline [DOXYCYCLINE] Allergy Unknown SEVERE Verified 12/24/22 09:15 DIARRHEA Doxycycline Hyclate Allergy Unknown diarrhea, Verified 12/24/22 09:15 severe diarrhea tetracycline [TETRACYCLINE] Allergy Unknown ITCHING, Verified 12/24/22 09:15 unknown Home Medications Medication Instructions Recorded Confirmed Last Taken Type azathioprine 50 mg tablet 100 mg PO DAILY 04/24/20 11/14/22 04/01/22 History omeprazole 20 mg capsule,delayed 20 mg PO DAILY 04/24/20 11/14/22 01/22/23 H istory release betamethasone dipropionate 0.05 % 1 appl topical DAILY PRN Dry Skin 06/07/20 11/14/22 04/01/22 History topical cream mesalamine 500 mg capsule,extended 1,000 mg PO QID 06/07/20 11/14/22 04/01/22 History release dicyclomine 10 mg capsule 10 mg PO DAILY 04/30/21 11/14/22 04/01/22 History Exam Exam Date and Time: January 21, 2023 0851 Height,Weight and Vital Signs: Height 5 ft 6 in Weight 54.885 kg Pertinent Lab Results Pertinent Lab Results: Laboratory Tests 11/04/22 11/21/22 20:13 07:20 WBC 3.8 L Hgb 12.5 Hct 37.1 Plt Count 327 D Sodium 143 Potassium 3.9 Chloride 109 H Carbon Dioxide 27 BUN 6 L Creatinine 0.68 Assessment and Plan Assessment Anesthesia Assessment: Chart Reviewed Final Anesthetic Review Family History of Problems with Anesthesia: No History of Problems with Anesthesia: No Documented by User: Isabella Valenzuela MD 01/22/23 08:02 [facility] Past Medical History Medical History Adult general medical exam Anemia Anxiety and depression Asthma Basal cell carcinoma Crohn's disease Flank pain GERD (gastroesophageal reflux disease) Impaired glucose tolerance Lip abscess Osteopenia Palpitations Peptic ulcer disease Renal calculi Tobacco abuse Vitamin D deficiency Surgical History Surgical History H/O tubal ligation History of cholecystectomy History of colonoscopy History of hysteroscopy History of lumpectomy of left breast Hx of appendectomy Hx of cystoscopy S/P small bowel resection Social History Social History Housing: House Alcohol intake: current Alcohol intake frequency: holidays/special occasions only Patient Tobacco Use Status: Current everyday Tobacco user Tobacco use type: Cigarette Cigarette Packs Per Day: 1 Cigarettes Per Day: 20.0 Years Smoked: 50 e-Cigarette/Vaping Use: Never Used Second Hand Smoke Exposure: Yes Current occupational status: 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 Cognitive needs: No Hearing needs: No Vision needs: Yes Meds Allergies Allergy/AdvReac Type Severity Reaction Status Date / Time Darvon Allergy Unknown oral Verified 12/24/22 09:15 swelling doxycycline [DOXYCYCLINE] Allergy Unknown SEVERE Verified 12/24/22 09:15 DIARRHEA Doxycycline Hyclate Allergy Unknown diarrhea, Verified 12/24/22 09:15 severe diarrhea tetracycline [TETRACYCLINE] Allergy Unknown ITCHING, Verified 12/24/22 09:15 unknown Home Medications Medication Instructions Recorded Confirmed Last Taken Type azathioprine 50 mg tablet 100 mg PO DAILY 04/24/20 11/14/22 04/01/22 History omeprazole 20 mg capsule,delayed 20 mg PO DAILY 04/24/20 11/14/22 01/22/23 History release betamethasone dipropionate 0.05 % 1 appl topical DAILY PRN Dry Skin 06/07/20 11/14/22 04/01/22 History topical cream mesalamine 500 mg capsule,extended 1,000 mg PO QID 06/07/20 11/14/22 04/01/22 History release dicyclomine 10 mg capsule 10 mg PO DAILY 04/30/21 11/14/22 04/01/22 History Exam Airway Mallampati Class: III TM Dist: >3cm Neck ROM: Full Loose/Missing/Broken Teeth: No Heart: RRR Lungs: CTA Assessment and Plan Assessment Anesthesia Assessment: Anesthesia Plan Discussed Final Anesthetic Review NPO: Yes ASA Class: II Final Preanesthetic Review: Meds/Allgs Chart Reviewed, Consent Obtained/Reviewed and Anes Risks/Benef Reviewed Patient Risk: Low Procedure Risk: Low Anesthetic Plan Anesthetic Plan: GA Disposition: Standard PACU
[2023-01-22] VITALS (8 sets, daily range): BP systolic 126–164; BP diastolic 46–90; PULSE 73–98; RESP 16–20; TEMP 36.1–36.8; O2SAT 98–100
--- NOTE | 2023-01-22 07:39 | P.OP_ITS ---
Operative Note Operative Note Date of Service: 01/22/23 Narrative: Operative Note Narrative: Preop diagnosis: 1. left Volar wrist ganglion Postop diagnosis: Same Procedure: 1. left Volar wrist ganglion excision Surgeon: Tish Vega MD Anesthesia: General Anesthesia Findings: Volar wrist ganglion measuring approximately 1.6 cm in diameter filled with clear viscous fluid consistent with a ganglion Implants: None Tourniquet time: 15 minutes EBL: 5.0 ml Specimen: Volar wrist ganglion Drains: None Complications: None Disposition: Brought to the recovery room in stable condition Plan: Follow-up in 10-14 days for wound check, suture removal and to check pathology Indications: The patient is 67 years old with left volar ganglion . The risks and benefits of operative treatment, including but not limited to risk of damage to blood vessels, nerves, tendons, infection, recurrence, persistent pain or numbness, incomplete resolution of preoperative symptoms, or need for further surgery were discussed with the patient and they wished to proceed with surgery. Procedure: Once consent was obtained patient was brought back to the operating suite and placed in the operating table in a supine position. . Perioperative antibiotics and anesthesia was administered by the anesthesia team. A tourniquet was applied to the proximal aspect of the left upper extremity and the limb was prepped and draped in a standard surgical fashion. The limb was elevated exsanguinated with Esmarch bandage and the tourniquet inflated to 250 mm of mercury for a total tourniquet time of 15 minutes. A 2.5 cm longitudinal incision was made centered over the patient's left volar wrist ganglion. The incision was made through the skin the subcutaneous tissues using a 15. Blade. Careful dissection was then made down to the level of the volar wrist ganglion using tenotomy scissors. The ganglion measured approximately 1.6 cm in diameter. Carefully dissected the soft tissues off of the ganglion using tenotomy scissors. Bipolar electrocautery was used to cauterize some small vessels passing over the ganglion. The stalk to the ganglion was then isolated and cauterized using bipolar electrocautery. The ganglion was then removed and placed on the back table to be sent for histopathology. It contained clear viscous fluid consistent with a ganglion. At this point the tourniquet was deflated and hemostasis obtained with a brief period of local pressure and bipolar electrocautery. The wound was copiously irrigated with normal saline. The skin edges were reapproximated with 5-0 nylon suture. The wound was infiltrated with some 1% lidocaine with epinephrine for postop pain control and a sterile dressing was applied. The patient appears to have tolerated the procedure well and with no complications. All digits were w ell vascularized conclusion of the case.
--- NOTE | 2023-01-22 07:39 | MHC.SHP ---
Pre-Procedural Eval Section A Date of Service: 01/22/23 The patient is an INPATIENT: No Changes since office visit: No Cold of Flu in the past 2 weeks, No New Medical Problems, No Changes in Medication and No Patient answered all questions The History & Physical has been completed within 30 days and I have reviewed it.: Yes Section B Chief Complaint: Ganglion, left wrist Allergies: Allergies Allergy/AdvReac Type Severity Reaction Status Date / Time Darvon Allergy Unknown oral Verified 12/24/22 09:15 swelling doxycycline [DOXYCYCLINE] Allergy Unknown SEVERE Verified 12/24/22 09:15 DIARRHEA Doxycycline Hyclate Allergy Unknown diarrhea, Verified 12/24/22 09:15 severe diarrhea tetracycline [TETRACYCLINE] Allergy Unknown ITCHING, Verified 12/24/22 09:15 unknown Plan I have reviewed the history and physical and performed a pertinent physical examination on my patient. No changes have occurred unless specified. Time Spent With Patient Time: Total time managing care of this patient today ____ minutes.
[2023-01-22] MEDS: oxyCODONE HCl Immed Release 5 MG TABLET PO (09:32)
== END 2023-01-22 10:14 | disposition home or self-care (01) ==
PROVIDERS: PCP Internal Medicine; Visit Provider Orthopaedic Surgery
PROC: (CPT 25111; principal; 2023-01-22 07:30)
DX: M67.432 Ganglion, left wrist (principal); D64.9 Anemia, unspecified; J45.909 Unspecified asthma, uncomplicated; R73.02 Impaired glucose tolerance (oral); Z79.899 Other long term (current) drug therapy; Z88.1 Allergy status to other antibiotic agents; Z88.8 Allergy status to other drugs, medicaments and biological substances; F17.210 Nicotine dependence, cigarettes, uncomplicated
CPT/HCPCS: 25111; 88304; J0131; J0690; J1100; J1885; J2250; J2371; J2405; J2795; J3010

== ENCOUNTER → 2023-01-22 06:04 | Outpatient (BNV) | payer MEDICARE, SELFPAY | PROVIDERS: PCP Internal Medicine; Visit Provider Orthopaedic Surgery | DX: M67.432 Ganglion, left wrist (principal) | CPT/HCPCS: 26111 ==

== ENCOUNTER 2023-02-04 13:21 | Outpatient (AMB) | payer MEDICARE, SELFPAY ==
--- NOTE | 2023-02-04 13:51 | MHC.OFFVIS ---
Intake Intake Visit Reasons: PO LT VWG exc 01/22/23AR Intake Note: Vivian 67 yr old female presents today for her P/O visit for her Left volar wrist ganglion excision from 01/22/23. States she believes incision might be infected. Reports redness started this past weekend. Allergies Darvon Allergy (Unknown, Verified 02/04/23 13:57) oral swelling doxycycline [DOXYCYCLINE] Allergy (Unknown, Verified 02/04/23 13:57) SEVERE DIARRHEA Doxycycline Hyclate Allergy (Unknown, Verified 02/04/23 13:57) diarrhea, severe diarrhea tetracycline [TETRACYCLINE] Allergy (Unknown, Verified 02/04/23 13:57) ITCHING, unknown HPI PO LT VWG exc 01/22/23AR HPI Details Vivian is a 67 year old right hand dominant woman who presents S/P left volar wrist ganglion excision, DOS: 01/22/23. She is concerned that her incision might be infected as this past weekend she began to notice increased redness and she says her wrist felt funny in the last few days. She says she was going to contact the clinic but thursday was closed for Labor day. She reports having a chronic hx of intermittent diarrhea, which she says slowed down when taking Oxycodone. She says her PCP is aware. [facility] Medical History Adult general medical exam Anemia Anxiety and depression Asthma Basal cell carcinoma Crohn's disease Flank pain GERD (gastroesophageal reflux disease) Impaired glucose tolerance Lip abscess Osteopenia Palpitations Peptic ulcer disease Renal calculi Tobacco abuse Vitamin D deficiency Surgical History H/O tubal ligation History of cholecystectomy History of colonoscopy History of hysteroscopy History of lumpectomy of left breast Hx of appendectomy Hx of cystoscopy S/P small bowel resection Social History Housing: House Alcohol intake: current Alcohol intake frequency: holidays/special occasions only Patient Tobacco Use Status: Current everyday Tobacco user Tobacco use type: Cigarette Cigarette Packs Per Day: 1 Cigarettes Per Day: 20.0 Years Smoked: 50 e-Cigarette/Vaping Use: Never Used Second Hand Smoke Exposure: Yes Current occupational status: 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 Tiny bit of purulence seen in some of the suture holes Sutures removed and a fresh dressing She can make a fist and extend all her digits Sensation is intact Cap refill is brisk Pathology report: 01/22/23 Diagnosis Soft tissue, left wrist, excision:? Ganglion cyst. Psych Appearance: grossly normal Affect: normal affect Attitude: cooperative Assessment & Plan Assessment & Plan (1) Ganglion cyst of volar aspect of left wrist: Code(s): M67.432 - Ganglion, left wrist Plan Assessment & Plan: 1. Left volar wrist ganglion, S/P release DOS: 01/22/23 The patient appears to be doing well post-operatively I educated her about the post-operative course & proper wound care I educated her on the signs and symptoms of infection, she has some mild local erythema about her incision and a tiny bit of purulence seen with suture removal I ordered a 7-day course of Augmentin for her to take. If her symptoms worsen she should contact the clinic or attend the ED if she is unable to take Doxycycline due to GI upset. We educated her about daily wound care I discussed activity modifications, she is to lift nothing heavier than a cellphone for the next two weeks She will perform gentle ROM exercises at home She should avoid any underwater activities for the next 5 days She will follow up in 1 week for a wound check, this can be done with a PA Scribed for Tish Vega MD by Rowdy Rogers medical delivery technician, on 02/04/23 at 2:00 PM, EST. Medications: New amoxicillin-pot clavulanate 875-125 mg 1 tab PO Q12H 14 tabs 0RF Coding Level of Care Code Global (31151) Diagnoses Ganglion cyst of volar aspect of left wrist M67.432
== END 2023-02-04 14:24 | disposition home or self-care (01) ==
PROVIDERS: PCP Internal Medicine; Visit Provider Orthopaedic Surgery
DX: M67.432 Ganglion, left wrist (principal)
CPT/HCPCS: 99024

== ENCOUNTER → 2023-02-04 13:21 | Outpatient (BNVA) | payer MEDICARE, SELFPAY | PROVIDERS: PCP Internal Medicine; Visit Provider Orthopaedic Surgery ==

== ENCOUNTER 2023-02-10 08:31 | Outpatient (AMB) | payer MEDICARE, SELFPAY ==
--- NOTE | 2023-02-10 08:35 | MHC.OFFVIS ---
Intake Intake Visit Reasons: PO LT VWG exc 01/22/23AR Intake Note: Vivian is a 67 year old female who presents today for a wound check of her Left volar wrist ganglion excision, 01/22/23 AR. Patient states -. Allergies Darvon Allergy (Unknown, Verified 02/10/23 08:35) oral swelling doxycycline [DOXYCYCLINE] Allergy (Unknown, Verified 02/10/23 08:35) SEVERE DIARRHEA Doxycycline Hyclate Allergy (Unknown, Verified 02/10/23 08:35) diarrhea, severe diarrhea tetracycline [TETRACYCLINE] Allergy (Unknown, Verified 02/10/23 08:35) ITCHING, unknown HPI PO LT VWG exc 01/22/23AR HPI Details 67-year-old female who presents in the office today for a wound check; 19 days status post left volar wrist ganglion cyst excision, which was performed on 01/22/[address] Vega. [facility] Medical History Adult general medical exam Anemia Anxiety and depression Asthma Basal cell carcinoma Crohn's disease Flank pain GERD (gastroesophageal reflux disease) Impaired glucose tolerance Lip abscess Osteopenia Palpitations Peptic ulcer disease Renal calculi Tobacco abuse Vitamin D deficiency Surgical History H/O tubal ligation History of cholecystectomy History of colonoscopy History of hysteroscopy History of lumpectomy of left breast Hx of appendectomy Hx of cystoscopy S/P small bowel resection Social History Housing: House Alcohol intake: current Alcohol intake frequency: holidays/special occasions only Patient Tobacco Use Status: Current everyday Tobacco user Tobacco use type: Cigarette Cigarette Packs Per Day: 1 Cigarettes Per Day: 20.0 Years Smoked: 50 e-Cigarette/Vaping Use: Never Used Second Hand Smoke Exposure: Yes Current occupational status: 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 Mild surrounding erythema. No active drainage. Well approximated and healing. Full ROM of the left wrist. NVI. Assessment & Plan Assessment & Plan (1) Ganglion cyst of volar aspect of left wrist: Comment: left volar wrist ganglion cyst excision 01/22/2023 AR Code(s): M67.432 - Ganglion, left wrist Plan Ms. Mccollum is a 67-year-old female who presents in the office today for a wound check; 19 days status post left volar wrist ganglion cyst excision, which was performed on 01/22/[address] Vega. The patient confirms she has 2 more tabs of Augmentin. She will continue to take her medications until her course is completed. She was educated on signs of worsening infection, which are as follows but not limited to erythema, edema, drainage, or warmth. If she is to experience any of these symptoms she is to contact the office immediately or present to the ED. The patient understands and excepts. She will follow up in 1 week for her final wound check, or sooner if needed. Patient Instructions: Scribed for Diamante Raya PA-C by Elvi Lobato medical review specialist, on 02/10/2023 at 8:35 am, EST. Coding Level of Care Code Global (25647) Diagnoses Ganglion cyst of volar aspect of left wrist M67.432
== END 2023-02-10 09:49 | disposition home or self-care (01) ==
PROVIDERS: PCP Internal Medicine; Visit Provider Physician Assistant
DX: M67.432 Ganglion, left wrist (principal)
CPT/HCPCS: 99024

== ENCOUNTER → 2023-02-10 08:31 | Outpatient (BNVA) | payer MEDICARE, SELFPAY | PROVIDERS: PCP Internal Medicine; Visit Provider Physician Assistant ==

== ENCOUNTER 2023-02-17 08:29 | Outpatient (AMB) | payer MEDICARE, SELFPAY ==
--- NOTE | 2023-02-17 08:34 | A.OFFVIS_ITS ---
Intake Vital Signs 02/17/23 08:37 Height 5 ft 5 in Weight 115 lb BMI 19.1 Handedness Right Intake Visit Reasons: PO LT VWG exc 01/22/23AR Intake Note: iVvian is a 67 year old right hand dominant female who presents today for a wound check of her Left volar wrist ganglion excision, 01/22/23 AR. Patient states she is healing well, no pain or discomfort. She states that she feels a little bit of discomfort when she lifts something slightly heavy. Allergies Darvon Allergy (Unknown, Verified 02/17/23 08:34) oral swelling doxycycline [DOXYCYCLINE] Allergy (Unknown, Verified 02/17/23 08:34) SEVERE DIARRHEA Doxycycline Hyclate Allergy (Unknown, Verified 02/17/23 08:34) diarrhea, severe diarrhea tetracycline [TETRACYCLINE] Allergy (Unknown, Verified 02/17/23 08:34) ITCHING, unknown HPI PO LT VWG exc 01/22/23AR HPI Details 67-year-old right hand dominant female josafat crystal presents in the office today for a wound check; 26 days status post left volar wrist ganglion cyst excision, which was performed on 01/22/[address] Vega. The patient states she is healing well with no pain or discomfort while in the office today. She does report some discomfort when lifting something slightly heavy. [facility] Medical History Adult general medical exam Anemia Anxiety and depression Asthma Basal cell carcinoma Crohn's disease Flank pain GERD (gastroesophageal reflux disease) Impaired glucose tolerance Lip abscess Osteopenia Palpitations Peptic ulcer disease Renal calculi Tobacco abuse Vitamin D deficiency Surgical History H/O tubal ligation History of cholecystectomy History of colonoscopy History of hysteroscopy History of lumpectomy of left breast Hx of appendectomy Hx of cystoscopy S/P small bowel resection Social History Housing: House Alcohol intake: current Alcohol intake frequency: holidays/special occasions only Patient Tobacco Use Status: Current everyday Tobacco user Tobacco use type: Cigarette Cigarette Packs Per Day: 1 Cigarettes Per Day: 20.0 Years Smoked: 50 e-Cigarette/Vaping Use: Never Used Second Hand Smoke Exposure: Yes Current occupational status: 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 Cognitive needs: No Hearing needs: No Vision needs: Yes Review of Systems Const All systems reviewed & are unremarkable except as noted in HPI and below Physical Exam Vital Signs: BMI result Body Mass Index 19.1 Const General: cooperative, healthy appearing and no acute distress Resp Effort & Inspection: normal respiratory effort and able to speak in complete sentences Cardio Rate: regular rate Peripheral pulses: Peripheral pulses 2+ throughout GI Palpation (GI): Soft to palpation Skin Lesions: no lesions Rashes: no rashes Extrem Other: Left wrist: Volar sided incision site is clean, dry, and intact. The surrounding erythema on last exam has resolved. No active drainage. Well approximated and healing. Full ROM of the left wrist. NVI. Assessment & Plan Assessment & Plan (1) Ganglion cyst of volar aspect of left wrist: Comment: left volar wrist ganglion cyst excision 01/22/2023 AR Code(s): M67.432 - Ganglion, left wrist Plan Ms. Mccollum is a 67-year-old right hand dominant female who presents in the office today for a wound check; 26 days status post left volar wrist ganglion cyst excision, which was performed on 01/22/[address] Vega. The patient states she is healing well with no pain or discomfort while in the office today. She does report some discomfort when lifting something slightly heavy. She may return to normal activities as tolerated. She was educated on signs of worsening infection, which are as follows but not limited to erythema, edema, drainage, or warmth. If she is to experience any of these symptoms she is to contact the office immediately or present to the ED. Follow up will be PRN, or sooner if needed. Patient Instructions: Scribed for Diamante Raya PA-C by Elvi Lobato certified medical assistant, on 02/17/2023 at 8:32 am, EST. Coding Level of Care Code Global (08773) Diagnoses Ganglion cyst of volar aspect of left wrist M67.432
[2023-02-17 08:37] VITALS: BMI 19.1
== END 2023-02-17 09:01 | disposition home or self-care (01) ==
PROVIDERS: PCP Internal Medicine; Visit Provider Physician Assistant
DX: M67.432 Ganglion, left wrist (principal)
CPT/HCPCS: 99024

== ENCOUNTER → 2023-02-17 08:29 | Outpatient (BNVA) | payer MEDICARE, SELFPAY | PROVIDERS: PCP Internal Medicine; Visit Provider Physician Assistant ==

== ENCOUNTER 2023-02-20 | Outpatient (REF) | payer MEDICARE, SELFPAY ==
[2023-02-20 08:38] LABS: MANUAL DIFF FLAG NO
[2023-02-20 09:09] LABS: Basophils Absolute Auto 0.1 X10*3/uL (0.0-0.2); Basophils Percent Auto 1.3 % (0-2); Eosinophils Absolute Auto 0.3 X10*3/uL (0.0-0.4); Eosinophils Percent Auto 6.1 % (0-4); Hematocrit 38.1 % (37.0-47.0); Hemoglobin 12.8 g/dl (12.0-16.0); Imm Gran Abs Auto 0.01 X10*3/uL (0.00-0.03); Imm Gran Pct Auto 0.2 % (0.0-0.4); Mean Corpuscular HGB Conc 33.6 g/dl (31.0-35.0); Mean Corpuscular Hemoglobin 35.3 pg (27.0-33.0); Mean Platelet Volume 10.3 fL (9.4-12.3); Monocytes Absolute Auto 0.4 X10*3/uL (0.1-1.2); Monocytes Percent Auto 9.6 % (2-11); Neutrophils Absolute Auto 2.8 x10*3/uL (2.0-8.3); Neutrophils Percent Auto 61.8 % (45-73); Platelet Count 254 X10*3/uL (160-400); Red Blood Count 3.63 X10*6/uL (4.20-5.50); White Blood Count 4.6 X10*3/uL (4.8-10.8)
[2023-02-20 10:05] LABS: Alanine Aminotransferase 12 U/L (0-31); Albumin Level 3.9 g/dL (3.5-5.0); Alkaline Phosphatase 77 U/L (39-117); Aspartate Amino Transferase 21 U/L (5-31); Bilirubin Direct 0.2 mg/dL (0.0-0.5); Bilirubin Total 0.6 mg/dL (0.0-1.0); Total Protein 6.4 g/dL (6.5-8.0)
== END 2023-02-20 00:01 ==
LOC: HO.LABR
PROVIDERS: PCP Internal Medicine; Visit Provider Internal Medicine
DX: K50.80 Crohn's disease of both small and large intestine without complications (principal); Z51.81 Encounter for therapeutic drug level monitoring
CPT/HCPCS: 36415; 80076; 85025

== ENCOUNTER 2023-02-20 08:38 | Outpatient (AMB) | payer MEDICARE, SELFPAY ==
--- NOTE | 2023-02-20 08:48 | AM.OFFVISNUR ---
Intake Intake Visit Reasons: B12 Shot Allergies Darvon Allergy (Unknown, Verified 02/17/23 08:34) oral swelling doxycycline [DOXYCYCLINE] Allergy (Unknown, Verified 02/17/23 08:34) SEVERE DIARRHEA Doxycycline Hyclate Allergy (Unknown, Verified 02/17/23 08:34) diarrhea, severe diarrhea tetracycline [TETRACYCLINE] Allergy (Unknown, Verified 02/17/23 08:34) ITCHING, unknown Office Meds cyanocobalamin (vitamin B-12) 1,000 mcg/mL injection solution Performing Provider: Tae Duarte MD Performing Location: [facility] Administered by: Jennifer Davidson RN on 02/20/23 08:48 Dose Route Admin Location Dispensed Lot Number Expiration Date [facility] [place] Product [employer] 1,000 mcg IM left deltoid 1 mL [id number] 07/29/24 51379-549-49 [employer] Coding Assessment & Plan Assessment & Plan Orders: Orders AMB Vitamin B12 Injection Patient Supplied Today D51.9 - Vitamin B12 deficiency anemia, unspecified
== END 2023-02-20 08:49 | disposition home or self-care (01) ==
PROVIDERS: PCP Internal Medicine; Visit Provider Internal Medicine
DX: D51.9 Vitamin B12 deficiency anemia, unspecified (principal)
CPT/HCPCS: 96372; J3420

== ENCOUNTER 2023-03-23 08:30 | Outpatient (AMB) | payer MEDICARE, SELFPAY ==
--- NOTE | 2023-03-23 09:48 | AM.OFFVISNUR ---
Intake Intake Visit Reasons: B12 Shot Allergies Darvon Allergy (Unknown, Verified 02/17/23 08:34) oral swelling doxycycline [DOXYCYCLINE] Allergy (Unknown, Verified 02/17/23 08:34) SEVERE DIARRHEA Doxycycline Hyclate Allergy (Unknown, Verified 02/17/23 08:34) diarrhea, severe diarrhea tetracycline [TETRACYCLINE] Allergy (Unknown, Verified 02/17/23 08:34) ITCHING, unknown Office Meds cyanocobalamin (vitamin B-12) 1,000 mcg/mL injection solution Performing Provider: Tae Duarte MD Performing Location: [facility] Administered by: Pranav Britton RN on 03/23/23 08:45 Dose Route Admin Location Dispensed Lot Number Expiration Date [facility] Tube Lancer 1,000 mcg IM left deltoid 1 mL [id number] 07/02/24 53121-626-31 [employer] Comments: consented for b12 injection. tolerated well. Coding Assessment & Plan Assessment & Plan Orders: Orders AMB Vitamin B12 Injection Patient Supplied Today E53.8 - Deficiency of other specified B group vitamins
== END 2023-03-23 08:51 | disposition home or self-care (01) ==
PROVIDERS: PCP Internal Medicine; Visit Provider Internal Medicine
DX: E53.8 Deficiency of other specified B group vitamins (principal)
CPT/HCPCS: 96372; J3420

== ENCOUNTER 2023-03-23 09:06 | Outpatient (REF) | payer MEDICARE, SELFPAY ==
[2023-03-23 09:34] LABS: MANUAL DIFF FLAG NO
[2023-03-23 10:50] LABS: Basophils Absolute Auto 0.1 X10*3/uL (0.0-0.2); Basophils Percent Auto 1.7 % (0-2); Eosinophils Absolute Auto 0.2 X10*3/uL (0.0-0.4); Eosinophils Percent Auto 3.6 % (0-4); Hematocrit 40.9 % (37.0-47.0); Hemoglobin 13.6 g/dl (12.0-16.0); Imm Gran Abs Auto 0.01 X10*3/uL (0.00-0.03); Imm Gran Pct Auto 0.2 % (0.0-0.4); Lymphocytes Absolute Auto 0.9 X10*3/uL (1.2-4.9); Lymphocytes Percent Auto 16.7 % (20-40); Mean Corpuscular HGB Conc 33.3 g/dl (31.0-35.0); Mean Corpuscular Hemoglobin 34.8 pg (27.0-33.0); Mean Corpuscular Volume 104.6 fL (80.0-98.0); Monocytes Absolute Auto 0.5 X10*3/uL (0.1-1.2); Monocytes Percent Auto 8.8 % (2-11); Neutrophils Absolute Auto 3.6 x10*3/uL (2.0-8.3); Platelet Count 325 X10*3/uL (160-400); Red Blood Count 3.91 X10*6/uL (4.20-5.50); Red Cell Distribution Width 14.2 % (11.0-16.0); White Blood Count 5.2 X10*3/uL (4.8-10.8)
[2023-03-23 11:29] LABS: Alanine Aminotransferase 15 U/L (0-31); Albumin Level 4.2 g/dL (3.5-5.0); Alkaline Phosphatase 90 U/L (39-117); Aspartate Amino Transferase 20 U/L (5-31); Bilirubin Direct 0.2 mg/dL (0.0-0.5); Bilirubin Total 0.5 mg/dL (0.0-1.0); Total Protein 6.9 g/dL (6.5-8.0)
== END 2023-03-23 09:07 | disposition home or self-care (01) ==
LOC: HO.LABR 09:06
PROVIDERS: Visit Provider Internal Medicine
DX: K50.80 Crohn's disease of both small and large intestine without complications (principal); Z79.899 Other long term (current) drug therapy
CPT/HCPCS: 36415; 80076; 85025

== ENCOUNTER 2023-04-30 08:25 | Outpatient (AMB) | payer MEDICARE, SELFPAY ==
--- NOTE | 2023-04-30 08:35 | AM.OFFVISNUR ---
Intake Intake Visit Reasons: B12 Shot Allergies Darvon Allergy (Unknown, Verified 02/17/23 08:34) oral swelling doxycycline [DOXYCYCLINE] Allergy (Unknown, Verified 02/17/23 08:34) SEVERE DIARRHEA Doxycycline Hyclate Allergy (Unknown, Verified 02/17/23 08:34) diarrhea, severe diarrhea tetracycline [TETRACYCLINE] Allergy (Unknown, Verified 02/17/23 08:34) ITCHING, unknown Office Meds cyanocobalamin (vitamin B-12) 1,000 mcg/mL injection solution Performing Provider: Tae Duarte MD Performing Location: [facility] Administered by: Rachana Godfrey RN on 04/30/23 08:48 Dose Route Admin Location Dispensed Lot Number Expiration Date [facility] Quarantine Officer 1,000 mcg IM 1 mL [id number] 07/29/24 91242-136-22 [employer] Coding Assessment & Plan Assessment & Plan Orders: Orders AMB Vitamin B12 Injection Patient Supplied Today E53.8 - Deficiency of other specified B group vitamins
== END 2023-04-30 08:50 | disposition home or self-care (01) ==
PROVIDERS: PCP Internal Medicine; Visit Provider Internal Medicine
DX: E53.8 Deficiency of other specified B group vitamins (principal)
CPT/HCPCS: 96372; J3420

== ENCOUNTER 2023-04-30 08:58 | Outpatient (REF) | payer MEDICARE, SELFPAY ==
[2023-04-30 09:13] LABS: MANUAL DIFF FLAG NO
[2023-04-30 09:43] LABS: Basophils Absolute Auto 0.1 X10*3/uL (0.0-0.2); Basophils Percent Auto 1.9 % (0-2); Eosinophils Absolute Auto 0.3 X10*3/uL (0.0-0.4); Eosinophils Percent Auto 6.7 % (0-4); Hematocrit 38.7 % (37.0-47.0); Hemoglobin 13.1 g/dl (12.0-16.0); Imm Gran Abs Auto 0.01 X10*3/uL (0.00-0.03); Imm Gran Pct Auto 0.2 % (0.0-0.4); Lymphocytes Absolute Auto 0.7 X10*3/uL (1.2-4.9); Lymphocytes Percent Auto 14.3 % (20-40); Mean Corpuscular HGB Conc 33.9 g/dl (31.0-35.0); Mean Corpuscular Hemoglobin 36.2 pg (27.0-33.0); Mean Corpuscular Volume 106.9 fL (80.0-98.0); Mean Platelet Volume 10.6 fL (9.4-12.3); Monocytes Absolute Auto 0.4 X10*3/uL (0.1-1.2); Monocytes Percent Auto 8.9 % (2-11); Neutrophils Absolute Auto 3.1 x10*3/uL (2.0-8.3); Platelet Count 262 X10*3/uL (160-400); Red Blood Count 3.62 X10*6/uL (4.20-5.50); Red Cell Distribution Width 14.6 % (11.0-16.0); White Blood Count 4.6 X10*3/uL (4.8-10.8)
[2023-04-30 10:01] LABS: Alanine Aminotransferase 17 U/L (0-31); Albumin Level 4.1 g/dL (3.5-5.0); Alkaline Phosphatase 96 U/L (39-117); Aspartate Amino Transferase 23 U/L (5-31); Bilirubin Direct 0.2 mg/dL (0.0-0.5); Bilirubin Total 0.5 mg/dL (0.0-1.0)
== END 2023-04-30 08:59 | disposition home or self-care (01) ==
LOC: HO.LABR 08:58
PROVIDERS: PCP Internal Medicine; Visit Provider Internal Medicine
DX: K50.80 Crohn's disease of both small and large intestine without complications (principal); Z79.899 Other long term (current) drug therapy
CPT/HCPCS: 36415; 80076; 85025

== ENCOUNTER 2023-05-04 15:27 | Outpatient (AMB) | payer MEDICARE, SELFPAY ==
--- NOTE | 2023-05-04 15:32 | A.OFFVIS_ITS ---
Intake Intake Visit Reasons: 8m follow up Intake Note: Patient presents today for a 8 weeks follow up: medications:? mybertriq blood thinners: none Bisque Grader Required: No Accompanied by: Self / Same As Patient Allergies Darvon Allergy (Unknown, Verified 05/28/23 08:33) oral swelling doxycycline [DOXYCYCLINE] Allergy (Unknown, Verified 05/28/23 08:33) SEVERE DIARRHEA Doxycycline Hyclate Allergy (Unknown, Verified 05/28/23 08:33) diarrhea, severe diarrhea tetracycline [TETRACYCLINE] Allergy (Unknown, Verified 05/28/23 08:33) ITCHING, unknown Medication List - Last Reconciled 05/04/23 by Catrachita Smith MD azathioprine 100 mg PO DAILY betamethasone dipropionate 0.05% 1 appl topical DAILY PRN buspirone 10 mg PO DAILY ciprofloxacin HCl 500 mg PO BID cyanocobalamin (vitamin B-12) 1,000 mcg IM Q4W 90 days dicyclomine 10 mg PO DAILY mesalamine ER 1,000 mg PO QID mirabegron ER (Myrbetriq) 50 mg PO DAILY omeprazole 20 mg PO DAILY oxycodone-acetaminophen 5-325 mg 1 tab PO Q6H PRN pyridoxine (vitamin B6) 100 mg PO DAILY raloxifene 60 mg PO DAILY tramadol 50 mg PO DAILY 90 days HPI HPI Comments History of Present Illness Details Vivian is a 68-year-old female who presents today to the office for a follow-up. 05/04/2023? She is followed today for 24-hour collection results. I have reviewed the 24-hour urine collection results from 03/03/2023 revealed urine volume was 3.4 L, urine calcium was 166. I have reviewed CAT scan results from 11/05/2022 revealed no calculi was seen, however, multiple simple cysts noted. She is on Myrbetriq 50 mg for overactive bladder and is prescribed Vitamin B6 100 mg daily. Review of charts: I have review and discussed stone analysis results - CaOX Procedures: Left ESWL 04/02/2022 24 hour urine results: Total volume 2.3 liters, Calcium 164 mg; Oxalate 46 mg, Sodium 109, Citrate 300 mg. Renal US?06/09/2022-- Kidneys: WNL, No evidence of renal calculi. Right kidney: Benign-appearing 1.1 cm renal cyst. Left kidney: Benign-appearing 1 cm renal cyst. 05/04/2023: Plan: Continue Vitamin B6 100 mg daily. Continue Myrbetriq 50 mg daily. Add lemon to water and add citrate to diet. Prescribed Ciprofloxacin 500 mg BID for 7 days. Follow-up in one year with renal US prior. [facility] Medical History (Updated 05/28/23 @ 08:46 by Tae Duarte MD) Adult general medical exam Lip abscess Palpitations Flank pain Basal cell carcinoma Peptic ulcer disease Renal calculi Vitamin D deficiency Tobacco abuse Impaired glucose tolerance Anxiety and depression Anemia Asthma Osteopenia GERD (gastroesophageal reflux disease) Crohn's disease Surgical History Hx of cystoscopy History of hysteroscopy History of colonoscopy History of cholecystectomy Hx of appendectomy H/O tubal ligation History of lumpectomy of left breast S/P small bowel resection Social History Housing: House Alcohol intake: current Alcohol intake frequency: holidays/special occasions only Patient Tobacco Use Status: Current everyday Tobacco user Tobacco use type: Cigarette Cigarette Packs Per Day: 1 Cigarettes Per Day: 20.0 Years Smoked: 50 e-Cigarette/Vaping Use: Never Used Second Hand Smoke Exposure: Yes Current occupational status: 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 Cognitive needs: No Hearing needs: No Vision needs: Yes Review of Systems Const All systems reviewed & are unremarkable except as noted in HPI and below Reports no additional complaints and Denies headache(s) Eyes Reports no additional complaints ENT Denies headache(s) and Denies neck pain Card Denies leg edema Resp Denies cough GI Denies constipation Reports no additional complaints Musc Reports no additional complaints and Denies neck pain Skin/Breast Denies rash and Denies unusual bruising Neuro Reports no additional complaints and Denies headache(s) Psych Reports no additional complaints Endo Reports no additional complaints Luc/Lymph Reports no additional complaints Aller/Immun Reports no additional complaints Results AMB Urinalysis, Automated UA Leukoctes 500 Ranjeet/uL Last Edit by JENIFER Saunders on 05/04/23 15:46 3+ Griffin Calvin 05/04/23 15:46 UA Nitrite Negative Last Edit by Griffin Calvin [facility] on 05/04/23 15:46 UA Urobilinogen 0.2 mg/dL Last Edit by Griffin Calvin [facility] on 05/04/23 15:4 6 UA Protein 0 mg/dL Last Edit by Griffin Calvin [facility] on 05/04/23 15:46 UA pH 6.0 Last Edit by Griffin Calvin [facility] on 05/04/23 15:46 UA Blood 200 Darrin/uL Last Edit by Griffin Calvin [facility] on 05/04/23 15:46 3+ Griffin Calvin 05/04/23 15:46 UA Specific Pelican 1.005 Last Edit by Griffin Calvin [facility] on 05/04/23 15: 46 UA Ketone Negative Last Edit by Griffin Calvin [facility] on 05/04/23 15:46 UA Bilirubin 0 mg/dL Last Edit by Griffin Calvin [facility] on 05/04/23 15:46 UA Glucose 0 mg/dL Last Edit by Griffin Calvin [facility] on 05/04/23 15:46 Results Reviewed Results Reviewed: Laboratory Last Values Urine pH (Auto) 6.0 05/04/23 15:38 Specific Pelican (Auto) 1.005 05/04/23 15:38 Urine Protein (Auto) 0 mg/dL 05/04/23 15:38 Glucose (UA)(Auto) 0 mg/dL 05/04/23 15:38 Urine Ketones (Auto) Negative 05/04/23 15:38 Urine Blood (Auto) 200 Darrin/uL 05/04/23 15:38 Urine Nitrite (Auto) Negative 05/04/23 15:38 Urine Bilirubin (Auto) 0 mg/dL 05/04/23 15:38 Urine Urobilinogen (Auto) 0.2 mg/dL 05/04/23 15:38 Leukocyte Esterase (Auto) 500 Ranjeet/uL 05/04/23 15:38 Assessment & Plan Assessment & Plan (1) Microscopic hematuria: Code(s): R31.29 - Other microscopic hematuria (2) Overactive bladder: Code(s): N32.81 - Overactive bladder (3) Kidney stone on left side: Code(s): N20.0 - Calculus of kidney (4) History of renal calculi: Comment: April 2022 left ESWL Code(s): Z87.442 - Personal history of urinary calculi Plan Continue Vitamin B6 100 mg daily. Continue Myrbetriq 50 mg daily. Add lemon to water and add citrate to diet. Prescribed Ciprofloxacin 500 mg BID for 7 days. Follow-up in one year with renal US prior. Orders: Orders US renal BI 05/04/23 Z87.442 - Personal history of urinary calculi AMB Urinalysis Automated 05/04/23 Z13.9 - Encounter for screening, unspecified Urine Culture 05/04/23 N39.0 - Urinary tract infection, site not specified Medications: New ciprofloxacin HCl 500 mg PO BID 14 tabs 0RF Refilled mirabegron ER (Myrbetriq) 50 mg PO DAILY 90 tabs 3RF pyridoxine (vitamin B6) 100 mg PO DAILY 90 tabs 3RF Patient Instructions: The patient had an opportunity to ask questions regarding treatment plan. All questions were answered. Imaging, Laboratory studies and physical exam results were discussed and reviewed in detail. No major barriers to understanding were identified. The patient expressed understanding and agreement with the above treatment plan. The patient is aware they should contact our office by phone for worsening of their current condition or the appearance of new symptoms. Compliance is encouraged with any medications and followup testing that is ordered. It is a privilege to be allowed the opportunity to participate in the urologic care of your patient. If you have any questions or concerns regarding treatment for the above conditions please do not hesitate to contact me. The office telephone contact is [phone]. This note is constructed in part using voice recognition software. While every effort has been made to ensure accuracy quarter backer errors may have been included. Yours sincerely, Catrachita Smith MD Coding Level of Care Code Est Pt Level 4 (64331) Diagnoses Microscopic hematuria R31.29 Overactive bladder N32.81 Kidney stone on left side N20.0 History of renal calculi Z87.442
== END 2023-05-04 15:58 | disposition home or self-care (01) ==
PROVIDERS: Visit Provider Urology
DX: R31.29 Other microscopic hematuria (principal); N32.81 Overactive bladder; N20.0 Calculus of kidney; Z87.442 Personal history of urinary calculi
CPT/HCPCS: 99214

== ENCOUNTER 2023-05-04 15:27 | Outpatient (REF) | payer MEDICARE, SELFPAY | END 2023-05-04 15:28 | disposition home or self-care (01) | LOC: HO.LAB 15:27 | PROVIDERS: Visit Provider Urology | DX: N39.0 Urinary tract infection, site not specified (principal); R31.29 Other microscopic hematuria; N32.81 Overactive bladder; N20.0 Calculus of kidney; Z87.442 Personal history of urinary calculi; Z79.899 Other long term (current) drug therapy | CPT/HCPCS: 81003; 87086; 87088; 87186; 99212 ==

== ENCOUNTER 2023-05-28 07:57 | Outpatient (REF) | payer MEDICARE, SELFPAY ==
[2023-05-28 09:18] LABS: MANUAL DIFF FLAG NO
[2023-05-28 09:36] LABS: Basophils Absolute Auto 0.1 X10*3/uL (0.0-0.2); Eosinophils Absolute Auto 0.3 X10*3/uL (0.0-0.4); Eosinophils Percent Auto 6.9 % (0-4); Hematocrit 39.4 % (37.0-47.0); Imm Gran Abs Auto 0.02 X10*3/uL (0.00-0.03); Imm Gran Pct Auto 0.5 % (0.0-0.4); Lymphocytes Absolute Auto 0.9 X10*3/uL (1.2-4.9); Lymphocytes Percent Auto 23.3 % (20-40); Mean Corpuscular Hemoglobin 35.3 pg (27.0-33.0); Mean Corpuscular Volume 107.1 fL (80.0-98.0); Mean Platelet Volume 10.3 fL (9.4-12.3); Monocytes Absolute Auto 0.5 X10*3/uL (0.1-1.2); Monocytes Percent Auto 12.1 % (2-11); Neutrophils Absolute Auto 2.2 x10*3/uL (2.0-8.3); Neutrophils Percent Auto 55.2 % (45-73); Platelet Count 247 X10*3/uL (160-400); Red Blood Count 3.68 X10*6/uL (4.20-5.50); Red Cell Distribution Width 14.3 % (11.0-16.0)
[2023-05-28 09:58] LABS: Alanine Aminotransferase 17 U/L (0-31); Albumin Level 4.3 g/dL (3.5-5.0); Alkaline Phosphatase 80 U/L (39-117); Aspartate Amino Transferase 22 U/L (5-31); Bilirubin Direct 0.2 mg/dL (0.0-0.5); Bilirubin Total 0.5 mg/dL (0.0-1.0)
== END 2023-05-28 07:58 | disposition home or self-care (01) ==
LOC: HO.LABR 07:57
PROVIDERS: PCP Internal Medicine; Visit Provider Internal Medicine
DX: K50.80 Crohn's disease of both small and large intestine without complications (principal); D51.9 Vitamin B12 deficiency anemia, unspecified; Z51.81 Encounter for therapeutic drug level monitoring
CPT/HCPCS: 36415; 80076; 85025

== ENCOUNTER 2023-05-28 08:12 | Outpatient (AMB) | payer MEDICARE, SELFPAY ==
[2023-05-28 08:32] VITALS: BP 132/68; PULSE 67; O2SAT 97; BMI 20.3
--- NOTE | 2023-05-28 08:32 | A.OFFPC_ITS ---
and colleagues, with an educational colleen from [employer]. Thrive Questionnaire Date Thrive assessed: 11/14/22 AUDIT C Alcohol Use Questionnaire (AUDIT-C) 1. How often do you have a drink containing alcohol?: Monthly or less 2. How many drinks containing alcohol do you have on a typical day when you are drinking?: 1 or 2 Total Score: 1 Score Reviewed/Action Taken: No MARLI-7 AMB Questionnaire MARLI-7 Date MARLI - 7 assessed: 11/14/22 Source: Developed by Drs. Neymar Florez, Elsy Patel, Tan Alejandra and colleagues, with an educational colleen from [employer]. Physical exam (Primary Care) Vital Signs: Last Vital Signs Pulse 67 05/28/23 08:32 BP 132/68 05/28/23 08:32 Pulse Ox 97 05/28/23 08:32 Oxygen Delivery Method Room Air 05/28/23 08:32 BMI result Body Mass Index 20.3 Tobacco/Smoking Status: Tobacco use Status Tobacco use date assessed 11/26/22 05/28/23 08:34 Patient Tobacco Use Status Current everyday Tobacco 05/28/23 08:34 Tobacco use type Cigarette 05/28/23 08:34 e-Cigarette/Vaping Use Never Used 05/28/23 08:34 PHQ-9: PHQ-9 Score PHQ-9: Total score 6 05/28/23 08:47 Depression Screening Interpretation: Negative Thrive Assessment: Date of Thrive Assessment Date Thrive assessed 11/14/22 05/28/23 08:34 Const General: alert; No acute distress Eyes Conjunctivae: conjunctivae normal Resp Auscultation: clear to auscultation bilaterally Cardio Rate: regular rate Rhythm: regular rhythm GI Inspection: Yes normal to inspection Extrem General: Yes normal to inspection and No edema Office Meds cyanocobalamin (vitamin B-12) 1,000 mcg/mL injection solution Performing Provider: Tae Duarte MD [facility] Administered by: Jennifer Davidson RN on 05/28/23 08:49 Dose Route Admin Location Dispensed Lot Number Expiration Date [employer] Rough Rounder Machine 1,000 mcg IM left deltoid 1 mL [id number] 07/29/24 31461-572-99 [employer] Assessment and Plan Assessment & Plan (1) Tobacco abuse: Comment: June 2022 Code(s): Z72.0 - Tobacco use Plan: Patient is strongly advised to stop smoking. Patient is entered into the lung cancer screening program (2) GERD (gastroesophageal reflux disease): Code(s): K21.9 - Gastro-esophageal reflux disease without esophagitis Qualifiers: Esophagitis presence: without esophagitis Qualified Code(s): K21.9 - Gastro-esophageal reflux disease without esophagitis Plan: Avoid the foods that causes that usually spicy foods, tomato products, juices, coffee, soda and foods that your sensitive to. After eating do not lie down, allow 3-4 hours before in lie down. And keep the head of bed above 30 degrees to avoid the acid from going up. (3) Asthma: Code(s): J45.909 - Unspecified asthma, uncomplicated Qualifiers: Asthma severity: mild Asthma persistence: intermittent Asthma complication type: uncomplicated Qualified Code(s): J45.20 - Mild intermittent asthma, uncomplicated Plan: Strongly advised to stop smoking! (4) History of renal calculi: Comment: April 2022 left ESWL Code(s): Z87.442 - Personal history of urinary calculi Plan: Patient follows up with urology keep well hydrated vitamin B6 (5) Overactive bladder: Code(s): N32.81 - Overactive bladder Plan: Patient has been followed up by Urology on Myrbetriq (6) Breast cancer screening by mammogram: Code(s): Z12.31 - Encounter for screening mammogram for malignant neoplasm of breast Plan: Reminded about the mammogram (7) Osteopenia: Code(s): M85.80 - Other specified disorders of bone density and structure, unspecified site Qualifiers: Osteopenia location: multiple sites Qualified Code(s): M85.89 - Other specified disorders of bone density and structure, multiple sites Plan: Reminded about bone density patient on raloxifene (8) Crohn's disease: Code(s): K50.90 - Crohn's disease, unspecified, without complications Qualifiers: Gastrointestinal tract location: large intestine Digestive disease co mplication type: without complication Qualified Code(s): K50.10 - Crohn's disease of large intestine without complications Plan: Continue to follow-up with Gastroenterology (9) Generalized anxiety disorder: Code(s): F41.1 - Generalized anxiety disorder Plan: Continue with therapy. Orders: Orders AMB Vitamin B12 Injection Patient Supplied Today D51.9 - Vitamin B12 deficiency anemia, unspecified Medications: Refilled cyanocobalamin (vitamin B-12) 1,000 mcg IM Q4W 90 days 4 mL 3RF Coding Level of Care Code Est Pt Level 4 (84641) Diagnoses Tobacco abuse Z72.0 Gastroesophageal reflux disease without esophagitis K21.9 Esophagitis presence: without esophagitis Mild intermittent asthma without complication J45.20 Asthma severity: mild Asthma persistence: intermittent Asthma complication type: uncomplicated History of renal calculi Z87.442 Overactive bladder N32.81 Breast cancer screening by mammogram Z12.31 Osteopenia of multiple sites M85.89 Osteopenia location: multiple sites Crohn's disease of large intestine without complication K50.10 Gastrointestinal tract location: large intestine Digestive disease complication type: without complication Generalized anxiety disorder F41.1 Vital Signs 05/28/23 08:32 Height 5 ft 5 in Weight 122 lb BMI 20.3 BP 132/68 Blood Pressure Location Lt brachial Position Sitting Pulse 67 Pulse Source Pulse Oximeter Pulse Oximetry (%) 97 Oxygen Delivery Method Room Air Intake Visit Reasons: 6mth f/u Allergies Darvon Allergy (Unknown, Verified 05/28/23 08:33) oral swelling doxycycline [DOXYCYCLINE] Allergy (Unknown, Verified 05/28/23 08:33) SEVERE DIARRHEA Doxycycline Hyclate Allergy (Unknown, Verified 05/28/23 08:33) diarrhea, severe diarrhea tetracycline [TETRACYCLINE] Allergy (Unknown, Verified 05/28/23 08:33) ITCHING, unknown Medication List - Last Reconciled 05/28/23 by Tae Duarte MD azathioprine 100 mg PO DAILY betamethasone dipropionate 0.05% 1 appl topical DAILY PRN buspirone 10 mg PO DAILY cyanocobalamin (vitamin B-12) 1,000 mcg IM Q4W 90 days dicyclomine 10 mg PO DAILY mesalamine ER 1,000 mg PO QID mirabegron ER (Myrbetriq) 50 mg PO DAILY omeprazole 20 mg PO DAILY oxycodone-acetaminophen 5-325 mg 1 tab PO Q6H PRN pyridoxine (vitamin B6) 100 mg PO DAILY raloxifene 60 mg PO DAILY tramadol 50 mg PO DAILY 90 days Tobacco use date assessed: 11/26/22 Fall risk assessment: No Falls in past year Last assessed Fall Risk: 05/28/23 Dental Screening Dental Screen Date: 05/28/23 Did you have a dental visit in the last 12 months?: Yes Did you have a dental problem in the last 6 months where you did not have access to dental care?: No Was dental information given to patient?: Patient has dentist HPI 6mth f/u HPI Details 68-year-old asthmatic smoker with overac tive bladder osteopenia last seen in July 2021. Patient has colonoscopy is up-to-date July 2018 mammogram is due this month bone density is due this year. Patient follows up with urology for overactive bladder on Myrbetriq history of nephrolithiasis advised low oxalate diet vitamin B6 low-sodium diet. Patient has also seen the Orthopedics in January 2023 for a ganglion cyst which was excised December 2022. In October 2022 patient has seen here with the nurse practitioner sec by and infection in the abdomen patient was given an antibiotic. Noted left ESWL April 2022. decline counselling for the counsellor. mammo 06/2023. [facility] Medical History (Updated 05/28/23 @ 08:46 by Tae Duarte MD) Adult general medical exam Lip abscess Palpitations Flank pain Basal cell carcinoma Peptic ulcer disease Renal calculi Vitamin D deficiency Tobacco abuse Impaired glucose tolerance Anxiety and depression Anemia Asthma Osteopenia GERD (gastroesophageal reflux disease) Crohn's disease Surgical History Hx of cystoscopy History of hysteroscopy History of colonoscopy History of cholecystectomy Hx of appendectomy H/O tubal ligation History of lumpectomy of left breast S/P small bowel resection Social History Housing: House Alcohol intake: current Alcohol intake frequency: holidays/special occasions only Patient Tobacco Use Status: Current everyday Tobacco user Tobacco use type: Cigarette Cigarette Packs Per Day: 1 Cigarettes Per Day: 20.0 Years Smoked: 50 e-Cigarette/Vaping Use: Never Used Second Hand Smoke Exposure: Yes Current occupational status: 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 1. Little interest or pleasure in doing things: more than half the days 2. Feeling down, depressed, or hopeless: several days 3. Trouble falling or staying asleep, or sleeping too much: several days 4. Feeling tired or having little energy: several days 5. Poor appetite or overeating: several days 6. Feeling bad about yourself - or that you are a failure or have let yourself or your family down: not at all 7. Trouble concentrating on things, such as reading the newspaper or watching television: not at all 8. Moving or speaking so slowly that other people could have noticed. Or the opposite - being so fidgety or restless that you have been moving around a lot more than usual: not at all 9. Thoughts that you would be better off or of hurting yourself in some way: not at all Total score: 6 Depression Screening Interpretation: Negative Depression Screening Done: Yes 29143 - PHQ-9 Billing: Yes Source: Developed by Drs. Neymar Florez, Elsy Patel, Tan Alejandra
== END 2023-05-28 09:04 | disposition home or self-care (01) ==
PROVIDERS: PCP Internal Medicine; Visit Provider Internal Medicine
DX: K50.10 Crohn's disease of large intestine without complications (principal); Z72.0 Tobacco use; K21.9 Gastro-esophageal reflux disease without esophagitis; D51.9 Vitamin B12 deficiency anemia, unspecified; J45.20 Mild intermittent asthma, uncomplicated; Z87.442 Personal history of urinary calculi; N32.81 Overactive bladder; M85.89 Other specified disorders of bone density and structure, multiple sites; F41.1 Generalized anxiety disorder
CPT/HCPCS: 96372; 99214; J3420

== ENCOUNTER 2023-06-05 08:53 | Outpatient (REF) | payer MEDICARE, SELFPAY ==
--- NOTE | ~2023-06-05 | MM_ITS ---
EXAMINATION: BONE DENSITOMETRY CLINICAL INDICATION: Menopause. COMPARISON: Previous BD dated 11/22/2020 and baseline BD dated 09/29/2006. TECHNIQUE: Using a to be DXA System (software version: 13.1) manufactured by [employer] system, dual-energy x-ray absorptiometry was performed of the lumbar spine and left hip. The images are of good technical quality. Summary results are attached. FINDINGS: LEFT FEMUR, NECK: Current: BMD 0.725 g/cm2, Z-score -0.4, T-score -2.2, osteopenia. Prior: BMD 0.714 g/cm2. Baseline: BMD 0.847 g/cm2. LEFT FEMUR, TOTAL: Current: BMD 0.699 g/cm2, Z-score -0.8, T-score -2.5, osteoporosis, 2.9% decrease from previous, 22.0% decrease from baseline (<5% change is not significant). Prior: BMD 0.720 g/cm2. Baseline: BMD 0.896 g/cm2. AP SPINE L1-L4: Current: BMD 1.073 g/cm2, Z-score 1.1, T-score -0.9, normal, 6.4% increase from previous, 3.2% decrease from baseline (<5% change is not significant). Prior: BMD 1.008 g/cm2. Baseline: BMD 1.109 g/cm2. IDENTIFIED RISK FACTORS: Menopause, height loss, secondary osteoporosis (intestinal or bowel disease), tobacco use (current smoker). HISTORY OF FRACTURE: None listed. MEDICATIONS: Calcium, vitamin D, bisphosphonate. MM/XR DEXA axial skeleton IMPRESSION: 1. DIAGNOSIS: Osteoporosis based on the lowest T-score value of -2.5 in the total femur applying World Health Organization criteria. 2. 10-YEAR FRACTURE RISK PREDICTION, FRAX: According to the guidelines, FRAX calculation should only be performed on patients in the osteopenia bone density category. Therefore, FRAX was not performed on this patient. 3. Treatment Recommendations: NOF guidelines recommend consideration for treatment in postmenopausal women and men age 50 and older presenting with the following: -A hip or vertebral (clinical or morphometric) fracture. -T-score less than or equal to -2.5 at the femoral neck or spine after appropriate evaluation to exclude secondary causes. -Low bone mass at the hip or spine and a 10-year fracture probability by FRAX of greater than or equal to 3% for hip fracture or greater than or equal to 20% for major osteoporotic fracture based on the [place] adapted WHO algorithm. 4. Other Recommendations: All treatment decisions require clinical judgment and consideration of individual patient factors, including patient preferences, comorbidities, previous drug use, risk factors not captured in the FRAX model (e.g. frailty, falls, vitamin D deficiency, increased bone turnover, interval significant decline in bone density) and possible under or overestimation of fracture risk by FRAX. Additional medical evaluation for secondary cause of low bone mineral density may be appropriate. FUTURE SCAN RECOMMENDATION: People with diagnosed cases of osteoporosis or at high risk for fracture should have regular bone mineral density tests. For patients eligible for Medicare, routine testing is allowed once every 2 years. The testing frequency can be increased to one year for patients who have rapidly progressing disease, those who are receiving or discontinuing medical therapy to restore bone mass, or have additional risk factors.
== END 2023-06-05 08:54 | disposition home or self-care (01) ==
LOC: HO.MAMMO 08:53
PROVIDERS: PCP Internal Medicine; Visit Provider Nurse Practitioner Family
DX: Z12.31 Encounter for screening mammogram for malignant neoplasm of breast (principal); Z13.820 Encounter for screening for osteoporosis; Z78.0 Asymptomatic menopausal state
CPT/HCPCS: 77063; 77067; 77080

== ENCOUNTER → 2023-06-05 09:30 | Outpatient (BNV) | payer MEDICARE, SELFPAY | PROVIDERS: PCP Internal Medicine; Visit Provider Radiology Diagnostic Radiology | DX: Z12.31 Encounter for screening mammogram for malignant neoplasm of breast (principal) | CPT/HCPCS: 77063; 77067 ==

== ENCOUNTER 2023-06-29 08:15 | Outpatient (AMB) | payer MEDICARE, SELFPAY ==
--- NOTE | 2023-06-29 08:17 | AM.OFFVISNUR ---
Intake Intake Visit Reasons: B12 Shot Allergies Darvon Allergy (Unknown, Verified 05/28/23 08:33) oral swelling doxycycline [DOXYCYCLINE] Allergy (Unknown, Verified 05/28/23 08:33) SEVERE DIARRHEA Doxycycline Hyclate Allergy (Unknown, Verified 05/28/23 08:33) diarrhea, severe diarrhea tetracycline [TETRACYCLINE] Allergy (Unknown, Verified 05/28/23 08:33) ITCHING, unknown Office Meds cyanocobalamin (vitamin B-12) 1,000 mcg/mL injection solution Performing Provider: Tae Duarte MD Performing Location: [facility] Administered by: Luis Fernando Ospina PA-C on 06/29/23 08:20 Dose Route Admin Location Dispensed Lot Number Expiration Date [facility] [employer] Instructor 1,000 mcg IM Left Arm 1 mL [id number] 12/30/24 37642-383-67 [employer] Coding Assessment & Plan Assessment & Plan Orders: Orders AMB Vitamin B12 Injection Patient Supplied Today E53.8 - Deficiency of other specified B group vitamins
== END 2023-06-29 08:45 | disposition home or self-care (01) ==
PROVIDERS: PCP Internal Medicine; Visit Provider Internal Medicine
DX: E53.8 Deficiency of other specified B group vitamins (principal)
CPT/HCPCS: 96372; J3420

== ENCOUNTER 2023-06-29 08:49 | Outpatient (REF) | payer MEDICARE, SELFPAY ==
[2023-06-29 09:11] LABS: MANUAL DIFF FLAG NO
[2023-06-29 09:51] LABS: Basophils Absolute Auto 0.1 X10*3/uL (0.0-0.2); Basophils Percent Auto 1.5 % (0-2); Eosinophils Absolute Auto 0.2 X10*3/uL (0.0-0.4); Eosinophils Percent Auto 4.2 % (0-4); Hematocrit 41.5 % (37.0-47.0); Hemoglobin 13.9 g/dl (12.0-16.0); Imm Gran Abs Auto 0.02 X10*3/uL (0.00-0.03); Imm Gran Pct Auto 0.4 % (0.0-0.4); Lymphocytes Absolute Auto 0.8 X10*3/uL (1.2-4.9); Lymphocytes Percent Auto 14.7 % (20-40); Mean Corpuscular HGB Conc 33.5 g/dl (31.0-35.0); Mean Corpuscular Hemoglobin 35.2 pg (27.0-33.0); Mean Corpuscular Volume 105.1 fL (80.0-98.0); Mean Platelet Volume 10.7 fL (9.4-12.3); Monocytes Absolute Auto 0.6 X10*3/uL (0.1-1.2); Monocytes Percent Auto 10.5 % (2-11); Neutrophils Absolute Auto 3.6 x10*3/uL (2.0-8.3); Neutrophils Percent Auto 68.7 % (45-73); Platelet Count 258 X10*3/uL (160-400); Red Blood Count 3.95 X10*6/uL (4.20-5.50); Red Cell Distribution Width 13.7 % (11.0-16.0); White Blood Count 5.2 X10*3/uL (4.8-10.8)
[2023-06-29 10:14] LABS: Alanine Aminotransferase 17 U/L (0-31); Albumin Level 4.2 g/dL (3.5-5.0); Alkaline Phosphatase 87 U/L (39-117); Aspartate Amino Transferase 25 U/L (5-31); Bilirubin Direct 0.2 mg/dL (0.0-0.5); Bilirubin Total 0.4 mg/dL (0.0-1.0); Total Protein 7.1 g/dL (6.5-8.0)
== END 2023-06-29 08:50 | disposition home or self-care (01) ==
LOC: HO.LABR 08:49
PROVIDERS: PCP Internal Medicine; Visit Provider Internal Medicine
DX: K50.80 Crohn's disease of both small and large intestine without complications (principal); Z51.81 Encounter for therapeutic drug level monitoring
CPT/HCPCS: 36415; 80076; 85025

== ENCOUNTER 2023-07-03 09:26 | Outpatient (REF) | payer MEDICARE, SELFPAY ==
--- NOTE | ~2023-07-03 | CT_ITS ---
EXAMINATION: CT CHEST SCREENING CLINICAL INFORMATION: Current smoker with 30 pack-year smoking history. COMPARISON: CTs dating back to 01/08/2018 TECHNIQUE: Multidetector volumetric CT imaging of the chest is performed without contrast using low dose technique. Additional 2D coronal and sagittal reformatted images and axial 3D maximum intensity projection (MIP) images are generated on the CT workstation. This CT examination was performed using dose optimization techniques as appropriate, variously including the following: *Automated exposure control *Adjustment of mA and/or kV according to patient size (this includes techniques or standardized protocols for targeted exams where dose is matched to indication/reason for exam; i.e. 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 LUNGS: Trachea and bronchi are patent. There is mild bronchial wall thickening. Hyperinflation with mild centrilobular emphysema. Unchanged subpleural reticulonodular markings in the bilateral upper lobes. No consolidations or groundglass opacities. Minor right middle and lower lobe atelectasis. No change 2 mm subpleural LLL nodule, 5:333. MEDIASTINUM: Unremarkable thyroid. No pathologic lymphadenopathy. Nonenlarged heart. No pericardial effusion. Nonaneurysmal aorta with atherosclerotic calcifications. Nonenlarged pulmonary arteries. CORONARY ARTERY CALCIFICATION: Mild. PLEURA: There is no pleural effusion. No pleural mass or thickening. AXILLA: No lymphadenopathy. UPPER ABDOMEN: No change mildly enlarged diffusely hypodense liver. OSSEOUS STRUCTURES: No suspicious osseous lesions. CT/CT lung screening IMPRESSION: Stable 2 mm left lower lobe pulmonary nodule. ASSESSMENT: Lung-RADS category 2: Benign RECOMMENDATION: Routine annual low-dose CT screening in 12 months.
== END 2023-07-03 09:27 | disposition home or self-care (01) ==
LOC: HO.CT 09:26
PROVIDERS: PCP Internal Medicine; Visit Provider Nurse Practitioner Family
DX: Z12.2 Encounter for screening for malignant neoplasm of respiratory organs (principal); F17.210 Nicotine dependence, cigarettes, uncomplicated
CPT/HCPCS: 71271

== ENCOUNTER 2023-07-30 08:14 | Outpatient (AMB) | payer MEDICARE, SELFPAY ==
--- NOTE | 2023-07-30 08:36 | AM.OFFVISNUR ---
Intake Intake Visit Reasons: B12 Shot Allergies Darvon Allergy (Unknown, Verified 05/28/23 08:33) oral swelling doxycycline [DOXYCYCLINE] Allergy (Unknown, Verified 05/28/23 08:33) SEVERE DIARRHEA Doxycycline Hyclate Allergy (Unknown, Verified 05/28/23 08:33) diarrhea, severe diarrhea tetracycline [TETRACYCLINE] Allergy (Unknown, Verified 05/28/23 08:33) ITCHING, unknown Office Meds cyanocobalamin (vitamin B-12) 1,000 mcg/mL injection solution Performing Provider: Tae Duarte MD Performing Location: [facility] Administered by: Remedios Baez RN on 07/30/23 08:36 Dose Route Admin Location Dispensed Lot Number Expiration Date [facility] Progressive Assembler And Fitter 1,000 mcg IM 1 mL [id number] Coding Assessment & Plan Assessment & Plan Orders: Orders AMB Vitamin B12 Injection Patient Supplied Today E53.8 - Deficiency of other specified B group vitamins
== END 2023-07-30 08:36 | disposition home or self-care (01) ==
PROVIDERS: PCP Internal Medicine; Visit Provider Internal Medicine
DX: E53.8 Deficiency of other specified B group vitamins (principal)
CPT/HCPCS: 96372; J3420

== ENCOUNTER 2023-07-30 08:38 | Outpatient (REF) | payer MEDICARE, SELFPAY ==
[2023-07-30 08:58] LABS: MANUAL DIFF FLAG NO
[2023-07-30 09:19] LABS: Basophils Absolute Auto 0.1 X10*3/uL (0.0-0.2); Basophils Percent Auto 1.4 % (0-2); Eosinophils Absolute Auto 0.3 X10*3/uL (0.0-0.4); Eosinophils Percent Auto 3.8 % (0-4); Hematocrit 39.1 % (37.0-47.0); Hemoglobin 13.3 g/dl (12.0-16.0); Imm Gran Abs Auto 0.03 X10*3/uL (0.00-0.03); Imm Gran Pct Auto 0.5 % (0.0-0.4); Lymphocytes Absolute Auto 0.8 X10*3/uL (1.2-4.9); Lymphocytes Percent Auto 11.8 % (20-40); Mean Corpuscular Hemoglobin 34.8 pg (27.0-33.0); Mean Corpuscular Volume 102.4 fL (80.0-98.0); Mean Platelet Volume 10.1 fL (9.4-12.3); Monocytes Absolute Auto 0.6 X10*3/uL (0.1-1.2); Monocytes Percent Auto 8.9 % (2-11); Neutrophils Absolute Auto 4.8 x10*3/uL (2.0-8.3); Neutrophils Percent Auto 73.6 % (45-73); Platelet Count 243 X10*3/uL (160-400); Red Blood Count 3.82 X10*6/uL (4.20-5.50); Red Cell Distribution Width 13.2 % (11.0-16.0); White Blood Count 6.5 X10*3/uL (4.8-10.8)
[2023-07-30 09:47] LABS: Alanine Aminotransferase 15 U/L (0-31); Albumin Level 4.1 g/dL (3.5-5.0); Alkaline Phosphatase 90 U/L (39-117); Aspartate Amino Transferase 20 U/L (5-31); Bilirubin Direct 0.1 mg/dL (0.0-0.5); Bilirubin Total 0.4 mg/dL (0.0-1.0); Total Protein 6.9 g/dL (6.5-8.0)
== END 2023-07-30 08:39 | disposition home or self-care (01) ==
LOC: HO.LABR 08:38
PROVIDERS: PCP Internal Medicine; Visit Provider Internal Medicine
DX: K50.80 Crohn's disease of both small and large intestine without complications (principal); Z51.81 Encounter for therapeutic drug level monitoring
CPT/HCPCS: 36415; 80076; 85025

== ENCOUNTER 2023-08-01 23:50 | Emergency (ER) | payer MEDICARE, SELFPAY ==
--- NOTE | ~2023-08-01 | XR_ITS ---
EXAMINATION: XR LUMBOSACRAL SPINE CLINICAL INFORMATION: Question compression fracture COMPARISON: 11/05/2022 TECHNIQUE: Three views of the lumbosacral spine. FINDINGS: There is anatomic alignment of the lumbar vertebral bodies and posterior elements. Vertebral body heights are maintained. No acute fracture is seen. There is multilevel disc space narrowing most severe at L1-L2 with surrounding degenerative endplate change/sclerosis. Mild multilevel endplate osteophytes. Sacroiliac joints appear intact. XR/XR lumbar spine 2-3V IMPRESSION: No acute findings identified. Degenerative changes as noted above.
[2023-08-01 23:56] VITALS: BP 139/71; PULSE 106; RESP 20; TEMP 37.1; O2SAT 98; BMI 21.5
[2023-08-02 00:44] VITALS: BP 139/64; PULSE 99; RESP 16; TEMP 36.3; O2SAT 97
--- NOTE | 2023-08-02 01:16 | ED_ITS ---
HPI - Back Pain/Injury General Chief Complaint: Back Pain/Injury Stated Complaint: Back Pain/No injury Time Seen by Provider: 08/02/23 01:15 Source: patient Mode of arrival: ambulatory Limitations: no limitations History of Present Illness HPI Narrative: Patient with history of sciatica used to take tramadol diminished she came as noticed pain in the right side radiating to the upper thigh came all of a sudden unable to put pressure the right leg no fall complaining of diffuse low back pain no history of compression fracture no paresthesias Related Data Home Medications Medication Instructions Recorded Confirmed azathioprine 50 mg tablet 100 mg PO DAILY 04/24/20 05/28/23 omeprazole 20 mg capsule,delayed 20 mg PO DAILY 04/24/20 05/28/23 release betamethasone dipropionate 0.05 % 1 appl topical DAILY PRN Dry Skin 06/07/20 05/28/23 topical cream mesalamine 500 mg capsule,extended 1,000 mg PO QID 06/07/20 05/28/23 release dicyclomine 10 mg capsule 10 mg PO DAILY 04/30/21 05/28/23 Previous Rx's Medication Instructions Recorded oxycodone-acetaminophen 5 mg-325 1 tab PO Q6H PRN pain #10 tabs 01/22/23 mg tablet buspirone 10 mg tablet 10 mg PO DAILY #90 tabs 04/06/23 mirabegron 50 mg tablet,extended 50 mg PO DAILY #90 tabs 05/04/23 release 24 hr (Myrbetriq) pyridoxine (vitamin B6) 100 mg 100 mg PO DAILY #90 tabs 05/04/23 tablet tramadol 50 mg tablet 50 mg PO DAILY 90 days #90 tabs 05/04/23 cyanocobalamin (vitamin B-12) 1,000 mcg IM Q4W 90 days #4 mL 05/28/23 1,000 mcg/mL injection solution vibegron 75 mg tablet (Gemtesa) 75 mg PO DAILY #30 tabs 07/18/23 raloxifene 60 mg tablet 60 mg PO DAILY #90 tabs 07/22/23 cyclobenzaprine 5 mg tablet 5 mg PO BID PRN muscle spasm #20 08/02/23 tabs tramadol 50 mg tablet 50 mg PO Q6H PRN pain #20 tabs 08/02/23 Allergies Allergy/AdvReac Type Severity Reaction Status Date / Time Darvon Allergy Unknown oral Verified 08/01/23 23:56 swelling doxycycline [DOXYCYCLINE] Allergy Unknown SEVERE Verified 08/01/23 23:56 DIARRHEA Doxycycline Hyclate Allergy Unknown diarrhea, Verified 08/01/23 23:56 severe diarrhea tetracycline [TETRACYCLINE] Allergy Unknown ITCHING, Verified 08/01/23 23:56 unknown Review of Systems Review of Systems: Yes all other systems are reviewed and are negative PMFSH Past Medical History Medical History Adult general medical exam Lip abscess Palpitations Flank pain Basal cell carcinoma Peptic ulcer disease Renal calculi Vitamin D deficiency Tobacco abuse Impaired glucose tolerance Anxiety and depression Anemia Asthma Osteopenia GERD (gastroesophageal reflux disease) Crohn's disease Surgical History Hx of cystoscopy History of hysteroscopy History of colonoscopy History of cholecystectomy Hx of appendectomy H/O tubal ligation History of lumpectomy of left breast S/P small bowel resection Social History Social History Housing: House Alcohol intake: current Alcohol intake frequency: holidays/special occasions only Patient Tobacco Use Status: Current everyday Tobacco user Tobacco use type: Cigarette Cigarette Packs Per Day: 1 Cigarettes Per Day: 20.0 Years Smoked: 50 e-Cigarette/Vaping Use: Never Used Second Hand Smoke Exposure: Yes Advance Directives: No Advance Directives Information Provided: No Current occupational status: 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 Oriented X3. No acute distress. Neck: Normal inspection. Neck supple. CVS: Normal heart rate and rhythm. Pulses normal. Respiratory: No respiratory distress. Equal air entry bilateral, Abdomen: Soft and nontender. Bowel sounds are present, no mass palpable, no CVA tenderness back: No focal spinal tenderness SLR negative bilaterally sensory intact tenderness at the right gluteal area pace test is positive+ Skin: Skin warm and dry. Normal skin color. Normal skin turgor. Neuro: Oriented X 3. No motor deficit. No sensory deficit Medications Administered Discontinued Medications Generic Name Dose Route Start Last Admin Trade Name Freq PRN Reason Stop Dose Admin Cyclobenzaprine HCl 5 mg 08/02/23 02:53 08/02/23 02:57 Cyclobenzaprine Hcl 5 Mg Tablet PO 08/02/23 02:54 5 mg ONCE ONE Administration Oxycodone HCl 10 mg 08/02/23 01:33 08/02/23 01:41 Oxycodone Hcl Immed Release 5 Mg Tablet PO 08/02/23 01:34 10 mg ONCE ONE Administration Medical Decision Making Medical Decision Making [facility] Narrative: Patient with history of sciatica and chronic low back pain x-ray negative for compression fracture came here for sudden onset of pain right gluteal area after bending down clinically has a acute piriformis muscle syndrome patient advised to do stretching exercises Differential Diagnosis Differential Diagnoses: The differential diagnosis associated with the presentation includes Piriformis syndrome/sciatica/compression fracture Independent Interpretation I performed an independent interpretation of an: Plain X-Ray Radiology Impression Discussion of test interpretation with radiology: I have reviewed the radiologist's reading. Discharge Plan Discharge Clinical Impression: Pyriformis syndrome Patient Disposition: Home, Self-Care Instructions: Piriformis Syndrome (ED) Additional Instructions: Do the piriformis stretching exercises as advised Pain medication muscle relaxant as prescribed Apply ice pack at the gluteal area Follow with your PCP if not better Prescriptions: New tramadol 50 mg tablet 50 mg PO Q6H PRN (Reason: pain) Qty: 20 0RF cyclobenzaprine 5 mg tablet 5 mg PO BID PRN (Reason: muscle spasm) Qty: 20 0RF No Action buspirone 10 mg tablet 10 mg PO DAILY Qty: 90 1RF tramadol 50 mg tablet 50 mg PO DAILY 90 Days Qty: 90 0RF Gemtesa 75 mg tablet 75 mg PO DAILY Qty: 30 1RF raloxifene 60 mg tablet 60 mg PO DAILY Qty: 90 2RF oxycodone-acetaminophen 5-325 mg tablet 1 tab PO Q6H PRN (Reason: pain) Qty: 10 0RF Rx Instructions: Partial Fill upon patient request. betamethasone dipropionate 0.05 % cream 1 appl topical DAILY PRN (Reason: Dry Skin) cyanocobalamin (vitamin B-12) 1,000 mcg/mL solution 1,000 mcg IM Q4W 90 Days Qty: 4 3RF cyanocobalamin (vitamin B-12) 1,000 mcg/mL solution 1,000 mcg IM ONCE Qty: 1 0RF omeprazole 20 mg capsule,delayed release(DR/EC) 20 mg PO DAILY azathioprine 50 mg tablet 100 mg PO DAILY mesalamine 500 mg capsule, extended release 1,000 mg PO QID dicyclomine 10 mg capsule 10 mg PO DAILY Myrbetriq 50 mg tablet extended release 24 hr 50 mg PO DAILY Qty: 90 3RF pyridoxine (vitamin B6) 100 mg tablet 100 mg PO DAILY Qty: 90 3RF Interventions: ED Discharge Assessment Last Done: 08/02/23 03:01
[2023-08-02] MEDS: oxyCODONE HCl Immed Release 5 MG TABLET 10 MG PO (01:41)
[2023-08-02 02:33] VITALS: BP 126/61; PULSE 102; RESP 16; TEMP 37; O2SAT 98
[2023-08-02] MEDS: Cyclobenzaprine HCl 5 MG TABLET PO (02:57)
== END 2023-08-02 03:01 | disposition home or self-care (01) ==
PROVIDERS: Emergency Provider Internal Medicine; PCP Internal Medicine
DX: G57.03 Lesion of sciatic nerve, bilateral lower limbs (principal); M54.50 Low back pain, unspecified
CPT/HCPCS: 72100; 99283; 99284

== ENCOUNTER 2023-08-18 13:13 | Outpatient (AMB) | payer MEDICARE, SELFPAY ==
--- NOTE | 2023-08-18 13:21 | AM.OFFWIN_ITS ---
Intake Vital Signs 08/18/23 13:22 08/18/23 13:46 Height 5 ft 5 in Weight 127 lb 8 oz BMI 21.2 BP 142/80 H Blood Pressure Location Lt brachial Position Sitting Pulse 95 Pulse Source Pulse Oximeter Temp 97.9 F Temp Source Oral Pulse Oximetry (%) 93 95 Oxygen Delivery Method Room Air Room Air Intake Visit Reasons: EP Lump under RT arm Intake Note: pt is here for a lump under her right arm pit on Thu and has progressively worse and pt says it is painful and ho to the touch and now she has on on her lower back on the same side and this on is painful as well Patient Tobacco Use Status: Current everyday Tobacco user Allergies Darvon Allergy (Unknown, Verified 08/18/23 13:47) oral swelling doxycycline [DOXYCYCLINE] Allergy (Unknown, Verified 08/18/23 13:47) SEVERE DIARRHEA Doxycycline Hyclate Allergy (Unknown, Verified 08/18/23 13:47) diarrhea, severe diarrhea tetracycline [TETRACYCLINE] Allergy (Unknown, Verified 08/18/23 13:47) ITCHING, unknown Medication List - Last Reconciled 08/18/23 by GOKUL Loyola azathioprine 100 mg PO DAILY betamethasone dipropionate 0.05% 1 appl topical DAILY PRN buspirone 10 mg PO DAILY cyanocobalamin (vitamin B-12) 1,000 mcg IM Q4W 90 days dicyclomine 10 mg PO DAILY mesalamine ER 1,000 mg PO QID omeprazole 20 mg PO DAILY pyridoxine (vitamin B6) 100 mg PO DAILY raloxifene 60 mg PO DAILY sulfamethoxazole-trimethoprim 800-160 mg (Bactrim DS) 1 tab PO Q12H tramadol 50 mg PO Q6H PRN tramadol 50 mg PO DAILY 90 days vibegron (Gemtesa) 75 mg PO DAILY HPI HPI Comments History of Present Illness Details Patient is a 68-year-old female in for sick visit. Patient states that 3 days prior to the appointment she was shaving under her armpit and afterwards developed a sore or bump. Patient states that it has gotten bigger over the past couple of days. She has also developed a similar bump on her right lower back. States that it is tender to touch. Has not tried any medication for relief. Denies any tingling or numbness, denies recent fever, denies chest pain, shortness a breath, nausea, vomiting, diarrhea. [facility] Medical History Adult general medical exam Lip abscess Palpitations Flank pain Basal cell carcinoma Peptic ulcer disease Renal calculi Vitamin D deficiency Tobacco abuse Impaired glucose tolerance Anxiety and depression Anemia Asthma Osteopenia GERD (gastroesophageal reflux disease) Crohn's disease Surgical History Hx of cystoscopy History of hysteroscopy History of colonoscopy History of cholecystectomy Hx of appendectomy H/O tubal ligation History of lumpectomy of left breast S/P small bowel resection Social History Housing: House Alcohol intake: current Alcohol intake frequency: holidays/special occasions only Patient Tobacco Use Status: Current everyday Tobacco user Tobacco use type: Cigarette Cigarette Packs Per Day: 1 Cigarettes Per Day: 20.0 Years Smoked: 50 e-Cigarette/Vaping Use: Never Used Second Hand Smoke Exposure: Yes Current occupational status: 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 Patient's pulse ox after recheck 95 on room air Const Other: Appearance: Alert.? Oriented X3.? No acute distress.? Head: Normocephalic, atraumatic, no step-offs or deformities Neck: Normal inspection.? Neck supple.?Full ROM. CVS: Normal heart rate and rhythm.? Pulses normal.? Respiratory: No respiratory distress.? Breath sounds normal.? Skin: Tender, moveable, red bump under armpit. 2in x 1 in. Attached to the skin. Small size tender, moveable bump on right lower back. Neuro: Oriented X 3.? No motor deficit.? No sensory deficit. CN 2-12 intact Cardio Rate: regular rate Rhythm: regular rhythm Assessment & Plan Assessment & Plan (1) Cellulitis and abscess of other specified site: Comment: Right axilla and right lower back. Patient will be given Bactrim to be taken as prescribed. Patient has been educated the side effects of these medications. Code(s): L03.818 - Cellulitis of other sites; L02.818 - Cutaneous abscess of other sites Plan: Take your medications as prescribed. If you were prescribed antibiotics today, it is important that you take your medication to their entirety, do not skip any doses, do not finish them early. Follow-up with your primary care provider this week. Return to the emergency department with new or worsening symptoms. Such as fevers, chills, chest pain, shortness of breath, nausea, vomiting, dizziness, headache, vision changes, lethargy In case of emergency call 911 Plan Follow-up with PCP. Coding Level of Care Code Est Pt Level 3 (82108) Diagnoses Cellulitis and abscess of other specified site L03.818; L02.818 Time Spent (min) 21
[2023-08-18 13:22] VITALS: BP 142/80; PULSE 95; TEMP 36.6; O2SAT 93; BMI 21.2
[2023-08-18 13:46] VITALS: O2SAT 95
== END 2023-08-18 14:12 | disposition home or self-care (01) ==
PROVIDERS: PCP Internal Medicine; Visit Provider Nurse Practitioner Primary Care
DX: L03.818 Cellulitis of other sites (principal); L02.818 Cutaneous abscess of other sites
CPT/HCPCS: 99213

== ENCOUNTER 2023-08-28 08:20 | Outpatient (AMB) | payer MEDICARE, SELFPAY ==
--- NOTE | 2023-08-28 08:24 | AM.OFFVISNUR ---
Intake Intake Visit Reasons: B12 Shot Allergies Darvon Allergy (Unknown, Verified 08/18/23 13:47) oral swelling doxycycline [DOXYCYCLINE] Allergy (Unknown, Verified 08/18/23 13:47) SEVERE DIARRHEA Doxycycline Hyclate Allergy (Unknown, Verified 08/18/23 13:47) diarrhea, severe diarrhea tetracycline [TETRACYCLINE] Allergy (Unknown, Verified 08/18/23 13:47) ITCHING, unknown Office Meds cyanocobalamin (vitamin B-12) 1,000 mcg/mL injection solution Performing Provider: Tae Duarte MD Performing Location: [facility] [employer] [facility] Administered by: Rachana Godfrey RN on 08/28/23 08:24 Dose Route Admin Location Dispensed Lot Number Expiration Date [facility] Client Account Specialist 1,000 mcg IM left deltoid 1 mL [id number] 01/28/25 75683-673-91 PIETER PHARMACEUT Coding Assessment & Plan Assessment & Plan Orders: Orders AMB Vitamin B12 Injection Patient Supplied Today E53.8 - Deficiency of other specified B group vitamins
== END 2023-08-28 08:34 | disposition home or self-care (01) ==
PROVIDERS: PCP Internal Medicine; Visit Provider Internal Medicine
DX: E53.8 Deficiency of other specified B group vitamins (principal)
CPT/HCPCS: 96372; J3420

== ENCOUNTER 2023-08-28 08:48 | Outpatient (REF) | payer MEDICARE, SELFPAY ==
[2023-08-28 08:56] LABS: MANUAL DIFF FLAG NO
[2023-08-28 09:15] LABS: Basophils Absolute Auto 0.1 X10*3/uL (0.0-0.2); Basophils Percent Auto 1.4 % (0-2); Eosinophils Absolute Auto 0.3 X10*3/uL (0.0-0.4); Hematocrit 39.9 % (37.0-47.0); Hemoglobin 13.5 g/dl (12.0-16.0); Imm Gran Abs Auto 0.03 X10*3/uL (0.00-0.03); Imm Gran Pct Auto 0.5 % (0.0-0.4); Lymphocytes Absolute Auto 0.9 X10*3/uL (1.2-4.9); Lymphocytes Percent Auto 14.6 % (20-40); Mean Corpuscular HGB Conc 33.8 g/dl (31.0-35.0); Mean Corpuscular Hemoglobin 34.4 pg (27.0-33.0); Mean Corpuscular Volume 101.5 fL (80.0-98.0); Mean Platelet Volume 9.2 fL (9.4-12.3); Monocytes Absolute Auto 0.6 X10*3/uL (0.1-1.2); Neutrophils Absolute Auto 4.5 x10*3/uL (2.0-8.3); Neutrophils Percent Auto 69.5 % (45-73); Platelet Count 345 X10*3/uL (160-400); Red Blood Count 3.93 X10*6/uL (4.20-5.50); Red Cell Distribution Width 13.2 % (11.0-16.0); White Blood Count 6.4 X10*3/uL (4.8-10.8)
[2023-08-28 10:04] LABS: Alanine Aminotransferase 14 U/L (0-31); Albumin Level 3.9 g/dL (3.5-5.0); Alkaline Phosphatase 103 U/L (39-117); Aspartate Amino Transferase 18 U/L (5-31); Bilirubin Direct 0.1 mg/dL (0.0-0.5); Bilirubin Total 0.3 mg/dL (0.0-1.0); Total Protein 7.1 g/dL (6.5-8.0)
== END 2023-08-28 08:49 | disposition home or self-care (01) ==
LOC: HO.LABR 08:48
PROVIDERS: PCP Internal Medicine; Visit Provider Internal Medicine
DX: K50.80 Crohn's disease of both small and large intestine without complications (principal); Z51.81 Encounter for therapeutic drug level monitoring
CPT/HCPCS: 36415; 80076; 85025

== ENCOUNTER 2023-09-24 08:27 | Outpatient (AMB) | payer MEDICARE, SELFPAY ==
--- NOTE | 2023-09-24 08:58 | AM.OFFVISNUR ---
Intake Intake Visit Reasons: b12 Allergies Darvon Allergy (Unknown, Verified 08/18/23 13:47) oral swelling doxycycline [DOXYCYCLINE] Allergy (Unknown, Verified 08/18/23 13:47) SEVERE DIARRHEA Doxycycline Hyclate Allergy (Unknown, Verified 08/18/23 13:47) diarrhea, severe diarrhea tetracycline [TETRACYCLINE] Allergy (Unknown, Verified 08/18/23 13:47) ITCHING, unknown Office Meds cyanocobalamin (vitamin B-12) 1,000 mcg/mL injection solution Performing Provider: Tae Duarte MD Performing Location: [facility] Administered by: Rachana Godfrey RN on 09/24/23 08:58 Dose Route Admin Location Dispensed Lot Number Expiration Date [place] Elevator Inspector 1,000 mcg IM left deltoid 1 mL [id number] 01/28/25 75417-443-37 [employer]ETER PHARMACEUT Coding Assessment & Plan Assessment & Plan Orders: Orders AMB Vitamin B12 Injection Patient Supplied Today E53.8 - Deficiency of other specified B group vitamins Medications: New cyanocobalamin (vitamin B-12) 1,000 mcg IM ONCE 1 mL 0RF E53.8 - Deficiency of other specified B group vitamins
== END 2023-09-24 09:02 | disposition home or self-care (01) ==
PROVIDERS: PCP Internal Medicine; Visit Provider Internal Medicine
DX: E53.8 Deficiency of other specified B group vitamins (principal)
CPT/HCPCS: 96372; J3420

== ENCOUNTER 2023-09-24 09:05 | Outpatient (REF) | payer MEDICARE, SELFPAY ==
[2023-09-24 09:17] LABS: MANUAL DIFF FLAG NO
[2023-09-24 09:35] LABS: Basophils Absolute Auto 0.1 X10*3/uL (0.0-0.2); Basophils Percent Auto 1.4 % (0-2); Eosinophils Absolute Auto 0.1 X10*3/uL (0.0-0.4); Eosinophils Percent Auto 2.5 % (0-4); Hematocrit 40.7 % (37.0-47.0); Hemoglobin 13.6 g/dl (12.0-16.0); Imm Gran Abs Auto 0.03 X10*3/uL (0.00-0.03); Imm Gran Pct Auto 0.5 % (0.0-0.4); Lymphocytes Absolute Auto 0.8 X10*3/uL (1.2-4.9); Lymphocytes Percent Auto 13.7 % (20-40); Mean Corpuscular HGB Conc 33.4 g/dl (31.0-35.0); Mean Corpuscular Hemoglobin 34.2 pg (27.0-33.0); Mean Corpuscular Volume 102.3 fL (80.0-98.0); Mean Platelet Volume 9.5 fL (9.4-12.3); Monocytes Absolute Auto 0.6 X10*3/uL (0.1-1.2); Monocytes Percent Auto 10.6 % (2-11); Neutrophils Percent Auto 71.3 % (45-73); Platelet Count 305 X10*3/uL (160-400); Red Blood Count 3.98 X10*6/uL (4.20-5.50); Red Cell Distribution Width 14.4 % (11.0-16.0); White Blood Count 5.6 X10*3/uL (4.8-10.8)
[2023-09-24 10:04] LABS: Alanine Aminotransferase 16 U/L (0-31); Albumin Level 4.1 g/dL (3.5-5.0); Alkaline Phosphatase 112 U/L (39-117); Aspartate Amino Transferase 19 U/L (5-31); Bilirubin Direct 0.2 mg/dL (0.0-0.5); Bilirubin Total 0.4 mg/dL (0.0-1.0); Total Protein 7.4 g/dL (6.5-8.0)
== END 2023-09-24 09:06 | disposition home or self-care (01) ==
LOC: HO.LABR 09:05
PROVIDERS: PCP Internal Medicine; Visit Provider Internal Medicine
DX: K50.80 Crohn's disease of both small and large intestine without complications (principal); Z51.81 Encounter for therapeutic drug level monitoring
CPT/HCPCS: 36415; 80076; 85025

== ENCOUNTER 2023-10-07 11:33 | Outpatient (AMB) | payer MEDICARE, SELFPAY ==
[2023-10-07 11:47] VITALS: BP 122/70; PULSE 78; O2SAT 98; BMI 20.8
--- NOTE | 2023-10-07 11:47 | A.OFFPC_ITS ---
Vital Signs 10/07/23 11:47 Height 5 ft 5 in Weight 125 lb BMI 20.8 BP 122/70 Blood Pressure Location Lt brachial Position Sitting Pulse 78 Pulse Source Pulse Oximeter Pulse Oximetry (%) 98 Oxygen Delivery Method Room Air Intake Visit Reasons: Pain Med Follow Up, Sciatica pain Allergies Darvon Allergy (Unknown, Verified 10/07/23 11:48) oral swelling doxycycline [DOXYCYCLINE] Allergy (Unknown, Verified 10/07/23 11:48) SEVERE DIARRHEA Doxycycline Hyclate Allergy (Unknown, Verified 10/07/23 11:48) diarrhea, severe diarrhea tetracycline [TETRACYCLINE] Allergy (Unknown, Verified 10/07/23 11:48) ITCHING, unknown Medication List - Last Reconciled 10/07/23 by Tae Duarte MD azathioprine 100 mg PO DAILY betamethasone dipropionate 0.05% 1 appl topical DAILY PRN buspirone 10 mg PO DAILY cyanocobalamin (vitamin B-12) 1,000 mcg IM Q4W 90 days dicyclomine 10 mg PO DAILY omeprazole 20 mg PO DAILY pyridoxine (vitamin B6) 100 mg PO DAILY raloxifene 60 mg PO DAILY tramadol 50 mg PO DAILY 90 days vibegron (Gemtesa) 75 mg PO DAILY Tobacco use date assessed: 10/07/23 Fall risk assessment: No Falls in past year Last assessed Fall Risk: 10/07/23 Dental Screening Dental Screen Date: 10/07/23 Did you have a dental visit in the last 12 months?: Yes Did you have a dental problem in the last 6 months where you did not have access to dental care?: No Was dental information given to patient?: Patient has dentist HPI Pain Med Follow Up 2 HPI Details 68-year-old female smoker with GERD asth ma overactive bladder osteopenia Crohn's disease and generalized anxiety disorder last seen in May 2023. Patient's colonoscopy is due mammogram is up-to-date bone density is up-to-date. Patient follows up with Dermatology September 2023 noted in July urgent visit right arm mass diagnosis of cellulitis/abscess right axilla and lower back was seen in the ER also for back pain piriformis syndrome placed on tramadol and cyclobenzaprine. With a history of smoking had a CT scan done in July 2023 stable 2 mm left lower lobe pulmonary nodule. Yearly CT.- colon test September [address]23 Dr. Novak. complains of low back pain. [facility] Medical History (Updated 10/07/23 @ 12:19 by Tae Duarte MD) Breast cancer screening by mammogram Adult general medical exam Lip abscess Palpitations Flank pain Basal cell carcinoma Peptic ulcer disease Renal calculi Vitamin D deficiency Tobacco abuse Impaired glucose tolerance Anxiety and depression Anemia Asthma Osteopenia GERD (gastroesophageal reflux disease) Crohn's disease Surgical History Hx of cystoscopy History of hysteroscopy History of colonoscopy History of cholecystectomy Hx of appendectomy H/O tubal ligation History of lumpectomy of left breast S/P small bowel resection Social History Housing: House Alcohol intake: current Alcohol intake frequency: holidays/special occasions only Patient Tobacco Use Status: Current everyday Tobacco user Tobacco use type: Cigarette Cigarette Packs Per Day: 1 Cigarettes Per Day: 20.0 Years Smoked: 50 Packs Per Year: 50 Packs per year/per ci.00 e-Cigarette/Vaping Use: Never Used Second Hand Smoke Exposure: Yes Current occupational status: 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 1. Little interest or pleasure in doing things: more than half the days 2. Feeling down, depressed, or hopeless: several days 3. Trouble falling or staying asleep, or sleeping too much: several days 4. Feeling tired or having little energy: several days 5. Poor appetite or overeating: several days 6. Feeling bad about yourself - or that you are a failure or have let yourself or your family down: not at all 7. Trouble concentrating on things, such as reading the newspaper or watching television: not at all 8. Moving or speaking so slowly that other people could have noticed. Or the opposite - being so fidgety or restless that you have been moving around a lot more than usual: not at all 9. Thoughts that you would be better off or of hurting yourself in some way: not at all Total score: 6 Depression Screening Interpretation: Negative Depression Screening Done: Yes 57411 - PHQ-9 Billing: Yes Source: Developed by Elsy Jeffery Kurt Kroenke and colleagues, with an educational colleen from [employer]. Thrive Questionnaire Date Thrive assessed: 10/07/23 I am a: Patient What is your living situation today?: I have a steady place to live Within the past 12 months, did the food you bought not last and you didn't have the money to get more?: Never true Within the past 12 months, did you worry whether your food would run out before you got money to buy more?: Never true Do you have trouble paying for medicines?: No Do you have trouble getting transportation to medical appointments?: No Do you have trouble paying your heating and electricity bill?: No Do you have trouble taking care of your child, family member or friend?: No Do you have trouble with day-to-day activities such as bathing, preparing meals, shopping, managing finances, etc.?: No Are you currently unemployed and looking for a job?: No Are you interested in more education?: No Currently or been in a relationship where the following occur: no concerns reported THRIVE Score: 0 AUDIT C Alcohol Use Questionnaire (AUDIT-C) 1. How often do you have a drink containing alcohol?: Monthly or less 2. How many drinks containing alcohol do you have on a typical day when you are drinking?: 1 or 2 Total Score: 1 Score Reviewed/Action Taken: No MARLI-7 AMB Questionnaire MARLI-7 Date MARLI - 7 assessed: 10/07/23 Feeling nervous, anxious, or on edge: 0 = Not at all Not being able to stop or control worryin = Not at all Worrying too much about different things: 0 = Not at all Trouble relaxin = Not at all Being so restless that it is hard to sit still: 0 = Not at all Becoming easily annoyed or irritable: 0 = Not at all Feeling afraid as if something awful might happen: 0 = Not at all Total MARLI-7 score (0-4 normal; 5-9 mild; 10-14 moderate; 15-21 severe): 0 Source: Developed by Elsy Jeffery Kurt Kroenke and colleagues, with an educational colleen from [employer]. Physical exam (Primary Care) Vital Signs: Last Vital Signs Pulse 78 10/07/23 11:47 BP 122/70 10/07/23 11:47 Pulse Ox 98 10/07/23 11:47 Oxygen Delivery Method Room Air 10/07/23 11:47 BMI result Body Mass Index 20.8 Tobacco/Smoking Status: Tobacco use Status Tobacco use date assessed 10/07/23 10/07/23 11:55 Patient Tobacco Use Status Current everyday Tobacco 10/07/23 11:55 Tobacco use type Cigarette 10/07/23 11:55 e-Cigarette/Vaping Use Never Used 10/07/23 11:55 PHQ-9: PHQ-9 Score PHQ-9: Total score 6 10/07/23 11:55 Depression Screening Interpretation: Negative Thrive Assessment: Date of Thrive Assessment Date Thrive assessed 10/07/23 10/07/23 11:55 Currently or been in a relationship where the following occur: no concerns reported Const General: alert; No acute distress Eyes Conjunctivae: conjunctivae normal Resp Auscultation: clear to auscultation bilaterally Cardio Rate: regular rate Rhythm: regular rhythm GI Inspection: Yes normal to inspection Extrem General: Yes normal to inspection and No edema Assessment and Plan Assessment & Plan (1) Tobacco abuse: Comment: June 2022, July 2023 CT scan left 2 mm pulmonary nodule Code(s): Z72.0 - Tobacco use Plan: Patient is strongly advised to stop smoking! (2) Impaired glucose tolerance: Code(s): R73.02 - Impaired glucose tolerance (oral) Plan: Decrease the amount of carbohydrate intake, pasta, bread, rice and potatoes are all sugar and that is aside from all the sweet stuff, remember that fruits are good but they are Sweet also. (3) Asthma: Code(s): J45.909 - Unspecified asthma, uncomplicated Qualifiers: Asthma severity: mild Asthma persistence: intermittent Asthma complication type: uncomplicated Qualified Code(s): J45.20 - Mild intermittent asthma, uncomplicated Plan: Stop smoking! Stable (4) GERD (gastroesophageal reflux disease): Code(s): K21.9 - Gastro-esophageal reflux disease without esophagitis Qualifiers: Esophagitis presence: without esophagitis Qualified Code(s): K21.9 - Gastro-esophageal reflux disease without esophagitis Plan: Avoid the foods that causes that usually spicy foods, tomato products, juices, coffee, soda and foods that your sensitive to. After eating do not lie down, allow 3-4 hours before in lie down. And keep the head of bed above 30 degrees to avoid the acid from going up. (5) Colon cancer screening: Code(s): Z12.11 - Encounter for screening for malignant neoplasm of colon Plan: Patient is reminded about colonoscopy. (6) Low back pain: Code(s): M54.50 - Low back pain, unspecified Plan: Physical therapy. On tramadol Orders: Orders Complete Blood Count Auto Diff Today R73.02 - Impaired glucose tolerance (oral) Free T4 (Free Thyroxine) Today R73.02 - Impaired glucose tolerance (oral) Hemoglobin A1c Today R73.02 - Impaired glucose tolerance (oral) UA CC w/rflx Micro + Cult Today R30.0 - Dysuria, R73.02 - Impaired glucose tolerance (oral) Comprehensive Met. Panel Today R73.02 - Impaired glucose tolerance (oral) Thyroid Stimulating Hormone Today R73.02 - Impaired glucose tolerance (oral) Lipid Panel Today E78.00 - Pure hypercholesterolemia, unspecified, R73.02 - Impaired glucose tolerance (oral) Vitamin B12 and Folate Today R73.02 - Impaired glucose tolerance (oral) Vitamin D 25-OH Total Today R73.02 - Impaired glucose tolerance (oral) PT Evaluation and Treatment Today M54.50 - Low back pain, unspecified Coding Level of Care Code Est Pt Level 4 (97121) Diagnoses Tobacco abuse Z72.0 Impaired glucose tolerance R73.02 Mild intermittent asthma without complication J45.20 Asthma severity: mild Asthma persistence: intermittent Asthma complication type: uncomplicated Gastroesophageal reflux disease without esophagitis K21.9 Esophagitis presence: without esophagitis Colon cancer screening Z12.11 Low back pain M54.50
== END 2023-10-07 12:34 | disposition home or self-care (01) ==
PROVIDERS: PCP Internal Medicine; Visit Provider Internal Medicine
DX: R73.02 Impaired glucose tolerance (oral) (principal); Z72.0 Tobacco use; J45.20 Mild intermittent asthma, uncomplicated; K21.9 Gastro-esophageal reflux disease without esophagitis; Z12.11 Encounter for screening for malignant neoplasm of colon; M54.50 Low back pain, unspecified
CPT/HCPCS: 99214

== ENCOUNTER 2023-10-08 08:45 | Outpatient (REF) | payer MEDICARE, SELFPAY ==
[2023-10-08 10:23] LABS: Leukocytes Stool Qualitative NEGATIVE (NEGATIVE)
[2023-10-08 10:39] LABS: CDiff Gene PCR NEGATIVE (Negative)
[2023-10-08 14:52] LABS: Adenovirus F 40/41 Not Detected (Not Detect.); Astrovirus Not Detected (Not Detect.); Campylobacter Not Detected (Not Detect.); Cryptosporidium Not Detected (Not Detect.); Cyclospora cayetanensis Not Detected (Not Detect.); E. coli EAEC Not Detected (Not Detect.); E. coli EPEC Not Detected (Not Detect.); E. coli ETEC Not Detected (Not Detect.); E. coli STEC Not Detected (Not Detect.); Entamoeba histolytica Not Detected (Not Detect.); Giardia lamblia Not Detected (Not Detect.); Norovirus GI/GII Not Detected (Not Detect.); Plesiomonas shigelloides Not Detected (Not Detect.); Rotavirus A Not Detected (Not Detect.); Salmonella Not Detected (Not Detect.); Sapovirus Not Detected (Not Detect.); Shigella sp./EIEC Not Detected (Not Detect.); Vibrio Not Detected (Not Detect.); Vibrio Cholerae Not Detected (Not Detect.); Yersinia enterocolitica Not Detected (Not Detect.)
[2023-10-15 22:43] LABS: Calprotectin, Fecal 14 mcg/g
== END 2023-10-08 08:46 | disposition home or self-care (01) ==
LOC: HO.LNP 08:45
PROVIDERS: Visit Provider Internal Medicine
DX: R19.7 Diarrhea, unspecified (principal)
CPT/HCPCS: 83993; 87493; 87507; 89055

== ENCOUNTER 2023-10-23 08:19 | Outpatient (AMB) | payer MEDICARE, SELFPAY ==
--- NOTE | 2023-10-23 08:38 | AM.OFFVISNUR ---
Intake Intake Visit Reasons: B12 Shot Allergies Darvon Allergy (Unknown, Verified 10/07/23 11:48) oral swelling doxycycline [DOXYCYCLINE] Allergy (Unknown, Verified 10/07/23 11:48) SEVERE DIARRHEA Doxycycline Hyclate Allergy (Unknown, Verified 10/07/23 11:48) diarrhea, severe diarrhea tetracycline [TETRACYCLINE] Allergy (Unknown, Verified 10/07/23 11:48) ITCHING, unknown Office Meds cyanocobalamin (vitamin B-12) 1,000 mcg/mL injection solution Performing Provider: Tae Duarte MD Performing Location: [facility] Administered by: Elidia Shearer RN on 10/23/23 08:39 Dose Route Admin Location Dispensed Lot Number Expiration Date ND Sales Account Executive 1,000 mcg IM 1 mL [id number] 01/26/25 50418-505-45 [employer] Coding Assessment & Plan Assessment & Plan Orders: Orders AMB Vitamin B12 Injection Patient Supplied Today E53.8 - Deficiency of other specified B group vitamins Medications: New cyanocobalamin (vitamin B-12) 1,000 mcg IM ONCE 1 mL 0RF E53.8 - Deficiency of other specified B group vitamins
== END 2023-10-23 08:41 | disposition home or self-care (01) ==
PROVIDERS: PCP Internal Medicine; Visit Provider Internal Medicine
DX: E53.8 Deficiency of other specified B group vitamins (principal)
CPT/HCPCS: 96372; J3420

== ENCOUNTER 2023-10-23 08:43 | Outpatient (REF) | payer MEDICARE, SELFPAY ==
[2023-10-23 09:01] LABS: MANUAL DIFF FLAG NO
[2023-10-23 09:15] LABS: Basophils Absolute Auto 0.1 X10*3/uL (0.0-0.2); Basophils Percent Auto 1.3 % (0-2); Eosinophils Absolute Auto 0.2 X10*3/uL (0.0-0.4); Eosinophils Percent Auto 4.6 % (0-4); Imm Gran Abs Auto 0.01 X10*3/uL (0.00-0.03); Imm Gran Pct Auto 0.2 % (0.0-0.4); Lymphocytes Absolute Auto 0.8 X10*3/uL (1.2-4.9); Lymphocytes Percent Auto 18.1 % (20-40); Mean Corpuscular HGB Conc 33.3 g/dl (31.0-35.0); Mean Corpuscular Hemoglobin 34.4 pg (27.0-33.0); Mean Corpuscular Volume 103.2 fL (80.0-98.0); Mean Platelet Volume 9.8 fL (9.4-12.3); Monocytes Absolute Auto 0.4 X10*3/uL (0.1-1.2); Monocytes Percent Auto 9.5 % (2-11); Neutrophils Percent Auto 66.3 % (45-73); Platelet Count 300 X10*3/uL (160-400); Red Blood Count 3.78 X10*6/uL (4.20-5.50); Red Cell Distribution Width 14.6 % (11.0-16.0); White Blood Count 4.5 X10*3/uL (4.8-10.8)
[2023-10-23 09:27] LABS: Estimated Average Glucose 123 mg/dL; Hemoglobin A1c % 5.9 % (<6.0)
[2023-10-23 09:34] LABS: Appearance Urine Clear; Color Urine Yellow; Glucose Urine UA Negative (Negative); Leukocyte Esterase Urine Trace (Negative); Nitrite Urine Negative (Negative); PH 5.5 (5.0-9.0); Specific Gravity - Urine <= 1.005 (1.005-1.025); UMIC TRIGGER UACC YES; Urine Blood Moderate (2+) (Negative); Urine Ketones Negative (Negative); Urine Protein Negative (Neg-Trace)
[2023-10-23 09:48] LABS: Bacteria Urine None Seen (None Seen); Hyaline Casts Urine 0-2 /LPF (0-2); RBC Urine 0-2 /HPF (0-2); Squamous Epithelial Cell Urine 0-2 /HPF (0-2); WBC Urine 0-5 /HPF (0-5)
[2023-10-23 09:50] LABS: Alanine Aminotransferase 16 U/L (0-31); Alkaline Phosphatase 90 U/L (39-117); Aspartate Amino Transferase 22 U/L (5-31); Bilirubin Direct 0.2 mg/dL (0.0-0.5); Bilirubin Total 0.5 mg/dL (0.0-1.0); Total Protein 6.8 g/dL (6.5-8.0)
[2023-10-23 09:59] LABS: Alanine Aminotransferase 18 U/L (0-31); Albumin Level 4.1 g/dL (3.5-5.0); Alkaline Phosphatase 92 U/L (39-117); Anion Gap 11 (12-20); Aspartate Amino Transferase 23 U/L (5-31); Bilirubin Total 0.5 mg/dL (0.0-1.0); Blood Urea Nitrogen 7 mg/dL (9-16); Calcium 9.6 mg/dL (8.4-10.2); Carbon Dioxide 28 mmol/L (22-29); Chloride 110 mmol/L (96-108); Cholesterol 141 mg/dL (<200); Estimated Glomerular Filt Rate > 60; Glucose Random 98 mg/dL (60-115); HDL Cholesterol 70 mg/dL (>40); LDL Cholesterol Calculated 59 mg/dL (<100); Potassium 3.9 mmol/L (3.3-5.1); Sodium 145 mmol/L (135-145); Total Protein 6.9 g/dL (6.5-8.0); Triglycerides 63 mg/dL (<150)
[2023-10-23 10:19] LABS: Free T4 (Free Thyroxine) 0.84 ng/dL (0.71-1.85); Thyroid Stimulating Hormone 0.95 uIU/mL (0.32-4.0); Vitamin D 25-OH Total 22.6 ng/mL (>30)
[2023-10-23 11:16] LABS: Folate 10.6 ng/mL (> or = 4.0); Vitamin B12 > 2000 pg/mL (200-900)
== END 2023-10-23 08:44 | disposition home or self-care (01) ==
LOC: HO.LABR 08:43
PROVIDERS: Absent Provider Internal Medicine; PCP Internal Medicine; Visit Provider Internal Medicine
DX: K50.80 Crohn's disease of both small and large intestine without complications (principal); R73.02 Impaired glucose tolerance (oral); E78.00 Pure hypercholesterolemia, unspecified; Z79.899 Other long term (current) drug therapy
CPT/HCPCS: 36415; 80053; 80061; 80076; 81001; 82248; 82306; 82607; 82746; 83036; 84439; 84443; 85025

== ENCOUNTER 2023-10-28 07:43 | Day surgery (SDC) | payer MEDICARE, SELFPAY ==
[2023-10-28 08:04] LABS: Glucose, Whole Blood 77 mg/dL (60-115)
[2023-10-28 08:15] VITALS: BMI 19.7
[2023-10-28 08:16] VITALS: BP 114/72; PULSE 98; RESP 16; TEMP 36.1; O2SAT 100
[2023-10-28] MEDS: Lactated Ringers 1,000 ML 80 ML IVCONT (08:17)
[2023-10-28] MEDS: Dextrose 5 % 50 ML 100 ML IV (08:18)
--- NOTE | 2023-10-28 08:19 | PC.NURSE ---
patient c/o dizziness, lightheaded, blurred vision. Stated I feel off . patient helped into bed VSS. patient is a diabetic POC 77. #20 IV to right wrist, D5 50mL bag given. patient states my vision is better, I feel better . will recheck POC. Dr. Peace at bedside to evaluate
--- NOTE | 2023-10-28 08:36 | HO.ANESPROP2 ---
[facility] Active Problems Active Problems: All Active Problems (Updated 10/07/23 @ 12:19 by Tae Duarte MD) Low back pain (Acute) Colon cancer screening (Acute) Cellulitis and abscess of other specified site (Acute) Generalized anxiety disorder (Acute) Ganglion cyst of volar aspect of left wrist (Acute) Mass of left wrist (Acute) Cellulitis of abdominal wall (Acute) Subcutaneous nodule of abdominal wall (Acute) Ganglion cyst (Acute) Post-menopausal (Acute) History of renal calculi (Acute) Hyperoxaluria (Acute) Kidney stone on left side (Acute) Abnormal ultrasound of endometrium (Acute) Microscopic hematuria (Acute) Cystic endometrial hyperplasia (Acute) Facial abscess (Acute) Post-menopausal bleeding (Acute) Overactive bladder (Acute) B12 deficiency (Acute) Osteopenia (Acute) Crohn's disease (Acute) Tobacco abuse (Acute) Impaired glucose tolerance (Acute) Anxiety and depression (Acute) Asthma (Acute) GERD (gastroesophageal reflux disease) (Acute) Past Medical History Medical History (Updated 10/07/23 @ 12:19 by Tae Duarte MD) Breast cancer screening by mammogram Adult general medical exam Lip abscess Palpitations Flank pain Basal cell carcinoma Peptic ulcer disease Renal calculi Vitamin D deficiency Tobacco abuse Impaired glucose tolerance Anxiety and depression Anemia Asthma Osteopenia GERD (gastroesophageal reflux disease) Crohn's disease Family History Family history of problems with anesthesia: No Surgical History Surgical History (Updated 10/23/23 @ 13:45 by Elisha Canada RN) History of surgical removal of ganglion cyst Hx of lithotripsy Hx of dilation and curettage Hx of cystoscopy History of hysteroscopy History of colonoscopy History of cholecystectomy Hx of appendectomy H/O tubal ligation History of lumpectomy of left breast S/P small bowel resection History of Problems with Anesthesia: No Social History Social History Housing: House Alcohol intake: current Alcohol intake frequency: does not drink Patient Tobacco Use Status: Current everyday Tobacco user Tobacco use type: Cigarette Cigarette Packs Per Day: 1 Cigarettes Per Day: 20.0 Years Smoked: 50 e-Cigarette/Vaping Use: Never Used Second Hand Smoke Exposure: Yes Use of substances other than those prescribed or required for medical reasons: No Are you DNR?: No Advance Directives: No Advance Directives Information Provided: Yes Advance Directives on File: No Current occupational status: 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 Cognitive needs: No Hearing needs: No Vision needs: Yes Meds Allergies Allergy/AdvReac Type Severity Reaction Status Date / Time Darvon Allergy Intermediate oral Verified 10/23/23 13:46 swelling Doxycycline Hyclate Allergy Intermediate diarrhea, Verified 10/23/23 13:46 severe diarrhea tetracycline [TETRACYCLINE] Allergy Intermediate Itching Verified 10/23/23 13:46 Active Medications: Current Medications Lactated Ringer's (Lr) 1,000 mls @ 80 mls/hr IVCONT .[id number] SANDRA Last Admin: 10/28/23 08:17 Dose: 80 mls/hr Dextrose (D5w) 50 mls @ 0 mls/hr IV .Q0M PRN PRN Reason: Per Protocol Last Admin: 10/28/23 08:18 Dose: 100 mls/hr Sodium Biphosphate/Sodium Phosphate (Sodium Phosphate,Alcorn-Dibasic 133 Ml Enema) 133 ml NH ONCE PRN PRN Reason: Poor Colonoscopy Prep Results Home Medications ?Medication ?Instructions ?Recorded ?Confirmed ?Last Taken ?Type azathioprine 50 mg tablet 100 mg PO DAILY 04/24/20 10/23/23 04/01/22 History omeprazole 20 mg capsule,delayed 20 mg PO DAILY 04/24/20 10/23/23 10/28/23 History release betamethasone dipropionate 0.05 % 1 appl topical DAILY PRN Dry Skin 06/07/20 10/23/23 04/01/22 History topical cream dicyclomine 10 mg capsule 10 mg PO DAILY 04/30/21 10/23/23 04/01/22 History Exam Height,Weight and Vital Signs: Height 5 ft 5 in Weight 53.581 kg Last Vital Signs Temp 97.0 F 10/28/23 08:16 Pulse 98 10/28/23 08:16 Resp 16 10/28/23 08:16 BP 114/72 10/28/23 08:16 Pulse Ox 100 10/28/23 08:16 O2 Del Method Room Air 10/28/23 08:16 Pertinent Lab Results Pertinent Lab Results: Laboratory Tests 10/28/23 07:58 POC Glucose 77 Airway Mallampati Class: II TM Dist: >3cm Neck ROM: Full Other: permanent bridges upper and lower Assessment and Plan Assessment Anesthesia Assessment: Anesthesia Plan Discussed and Chart Reviewed Final Anesthetic Review Family History of Problems with Anesthesia: No History of Problems with Anesthesia: No NPO: Yes ASA Class: III Final Preanesthetic Review: No Changes in Pt Med Stat, Meds/Allgs Chart Reviewed, Consent Obtained/Reviewed and Anes Risks/Benef Reviewed Patient Risk: Intermediate Procedure Risk: Low Anesthetic Plan Anesthetic Plan: TIVA Disposition: Standard PACU
[2023-10-28 08:39] LABS: Glucose, Whole Blood 112 mg/dL (60-115)
[2023-10-28] MEDS: Albuterol Sulfate (0.083%) 2.5 MG/3 ML VIAL.NEB INHALE (10:41)
[2023-10-28 12:14] VITALS: BP 99/56; PULSE 89; RESP 16; TEMP 36.8; O2SAT 99
--- NOTE | 2023-10-28 12:20 | P.BOP_ITS ---
Brief Operative Note Date of Service: 10/28/23 Pre-op diagnosis: GERD, Crohn's, Screening Post-op diagnosis: other (Hiatal hernia, Diverticulosis) Procedure: EGD, Colonoscopy to the anastomosis and SI with biopsies Surgeon: Neymar Sauer MD Anesthesia: MAC Was an Robotic Maintenance Technician used for this Procedure?: No Estimated blood loss (mL): 2.0 Pathology: other (A. Colon at 60cm just distal to the anastomosis B. Descending colon C. Sigmoid colon D. Rectum) Condition: stable Disposition: PACU
[2023-10-28 12:29] VITALS: BP 108/43; PULSE 89; RESP 20; TEMP 36.5; O2SAT 97
--- NOTE | 2023-10-29 02:25 | OP_ITS ---
DATE OF SERVICE: 10/28/2023 SURGEON: Neymar Sauer MD INDICATIONS: The patient presents for evaluation of gastroesophageal reflux, abdominal discomfort, long-standing Crohn disease, and colorectal cancer screening. Full consent has been obtained from her for this, including risks of bleeding and perforation. PREOPERATIVE DIAGNOSIS: POSTOPERATIVE DIAGNOSIS: PROCEDURE PERFORMED: Esophagogastroduodenoscopy and colonoscopy to the anastomosis and small bowel with biopsies. ESTIMATED BLOOD LOSS: COMPLICATIONS: ANESTHESIA: Monitored anesthesia care. ASSISTANTS: SPECIMENS: PREOPERATIVE DIAGNOSES: Gastroesophageal reflux, abdominal pain, long-standing Crohn disease, colorectal cancer screening. POSTOPERATIVE DIAGNOSES: Gastroesophageal reflux, abdominal pain, long-standing Crohn disease, colorectal cancer screening, hiatal hernia, diverticulosis, patent ileocolic anastomosis. DESCRIPTION OF PROCEDURE: The patient was placed in the left lateral decubitus position. The Olympus video gastroscope was passed in the posterior oropharynx and upper esophagus under direct vision. The scope was passed slowly into the distal esophagus. The gastroesophageal junction appeared at 35 cm. There was no sign of any esophagitis nor Vinson esophagus. The scope entered the stomach. There was a small hiatal hernia. The scope was advanced to the pylorus and the duodenum was cannulated to the descending portion. The duodenum including the bulb appeared normal without mass or ulceration. The scope was withdrawn back to the stomach. The gastric antrum and body appeared normal with good peristalsis. The scope was retroflexed visualizing the proximal stomach carefully, which appeared normal, without any sign of mass or ulceration. The scope was straightened and withdrawn back to the esophagus. The esophageal mucosa appeared normal. The scope was withdrawn from the patient. She was turned around for the colonoscopy. The digital rectal exam revealed no abnormalities. The Olympus video pediatric colonoscope was entered into the rectum and advanced easily to the region of the ileocolic anastomosis. This was patent and the small bowel was cannulated for least 5-10 cm and appeared normal. There was no sign of any ileitis. The scope was withdrawn back into the colon. The anastomosis appeared normal without any sign of stricture nor ulceration. The scope was then slowly withdrawn assessing all mucosal surfaces carefully. Preparation was excellent. I did not visualize any sign of active colitis, polyps, nor angiodysplasia. Random biopsies were obtained in the colon just distal to the anastomosis, in what appeared to be the descending colon, the sigmoid colon, and the rectum. There was a mild amount of sigmoid diverticulosis. In the rectum, scope was retroflexed visualizing some small internal hemorrhoids, but no other pathology. The rectal mucosa appeared normal. Scope was straightened and withdrawn from the patient. She tolerated both procedures well and was returned to the recovery area in stable condition. IMPRESSION: 1. Small hiatal hernia. 2. Diverticulosis. 3. Normal ileocolic anastomosis. PLAN: The patient has been advised to continue her current regimen for Crohn disease including the azathioprine and Pentasa. She was advised to continue symptomatic treatment with dicyclomine, Imodium, omeprazole, and cholestyramine. We have reviewed both previously and today that her loose stools are in relation to her altered GI anatomy with the ileocolic anastomosis, as well as her cholecystectomy, with what I feel is a component of a bile induced diarrhea. As such, hopefully, the cholestyramine would help. She was advised to avoid aspirin and NSAIDs both for least a week and long-term, so as not to exacerbate the underlying inflammatory bowel disease. I would recommend a repeat colonoscopy in 5 years depending upon her clinical condition. She has been advised numerous times to stop smoking, including today. She will see me in the fall for a followup visit. She was advised to call sooner as needed. This has all been discussed with her in detail as well. MD RICK Harley/DM / [phone]
== END 2023-10-28 13:02 | disposition home or self-care (01) ==
PROVIDERS: PCP Internal Medicine; Visit Provider Internal Medicine
PROC: (CPT 43235; principal; 2023-10-28 10:40)
DX: K50.80 Crohn's disease of both small and large intestine without complications (principal); K21.9 Gastro-esophageal reflux disease without esophagitis; K90.89 Other intestinal malabsorption; R19.7 Diarrhea, unspecified; Z12.11 Encounter for screening for malignant neoplasm of colon; K52.89 Other specified noninfective gastroenteritis and colitis; K62.89 Other specified diseases of anus and rectum; K57.30 Diverticulosis of large intestine without perforation or abscess without bleeding; K64.8 Other hemorrhoids; K63.89 Other specified diseases of intestine; Z86.010 Personal history of colon polyps; Z79.899 Other long term (current) drug therapy; J45.909 Unspecified asthma, uncomplicated; F17.210 Nicotine dependence, cigarettes, uncomplicated
CPT/HCPCS: 43235; 45380; 82947; 88305; J2371; J2704

== ENCOUNTER 2023-11-23 08:54 | Outpatient (REF) | payer MEDICARE, SELFPAY ==
[2023-11-23 09:11] LABS: MANUAL DIFF FLAG NO
[2023-11-23 09:18] LABS: Basophils Absolute Auto 0.1 X10*3/uL (0.0-0.2); Basophils Percent Auto 1.5 % (0-2); Eosinophils Absolute Auto 0.3 X10*3/uL (0.0-0.4); Eosinophils Percent Auto 5.3 % (0-4); Hematocrit 39.1 % (37.0-47.0); Hemoglobin 13.1 g/dl (12.0-16.0); Imm Gran Abs Auto 0.01 X10*3/uL (0.00-0.03); Imm Gran Pct Auto 0.2 % (0.0-0.4); Lymphocytes Absolute Auto 0.7 X10*3/uL (1.2-4.9); Lymphocytes Percent Auto 15.2 % (20-40); Mean Corpuscular HGB Conc 33.5 g/dl (31.0-35.0); Mean Corpuscular Hemoglobin 34.5 pg (27.0-33.0); Mean Corpuscular Volume 102.9 fL (80.0-98.0); Mean Platelet Volume 9.8 fL (9.4-12.3); Monocytes Absolute Auto 0.4 X10*3/uL (0.1-1.2); Monocytes Percent Auto 8.8 % (2-11); Neutrophils Absolute Auto 3.3 x10*3/uL (2.0-8.3); Platelet Count 238 X10*3/uL (160-400); Red Cell Distribution Width 14.1 % (11.0-16.0); White Blood Count 4.8 X10*3/uL (4.8-10.8)
[2023-11-23 10:04] LABS: Alanine Aminotransferase 15 U/L (0-31); Alkaline Phosphatase 93 U/L (39-117); Aspartate Amino Transferase 24 U/L (5-31); Bilirubin Direct 0.2 mg/dL (0.0-0.5); Bilirubin Total 0.5 mg/dL (0.0-1.0); Total Protein 6.8 g/dL (6.5-8.0)
== END 2023-11-23 08:55 | disposition home or self-care (01) ==
LOC: HO.LABR 08:54
PROVIDERS: Absent Provider Internal Medicine; PCP Internal Medicine; Visit Provider Internal Medicine
DX: K50.80 Crohn's disease of both small and large intestine without complications (principal); Z51.81 Encounter for therapeutic drug level monitoring
CPT/HCPCS: 36415; 80076; 85025

== ENCOUNTER 2023-11-23 09:17 | Outpatient (AMB) | payer MEDICARE, SELFPAY ==
--- NOTE | 2023-11-23 09:38 | AM.OFFVISNUR ---
Intake Intake Visit Reasons: B12 Shot Allergies Darvon Allergy (Intermediate, Verified 10/23/23 13:46) oral swelling Doxycycline Hyclate Allergy (Intermediate, Verified 10/23/23 13:46) diarrhea, severe diarrhea tetracycline [TETRACYCLINE] Allergy (Intermediate, Verified 10/23/23 13:46) Itching Office Meds cyanocobalamin (vitamin B-12) 1,000 mcg/mL injection solution Performing Provider: Tae Duarte MD [facility] Administered by: Elidia Shearer RN on 11/23/23 09:46 Dose Route Admin Location Dispensed Lot Number Expiration Date NDC Plate Take Out Worker 1,000 mcg IM left arm 1 mL [id number] 01/26/25 93900-739-12 [employer] Coding Assessment & Plan Assessment & Plan Orders: Orders AMB Vitamin B12 Injection Practice Supplied Today E53.8 - Deficiency of other specified B group vitamins Medications: New cyanocobalamin (vitamin B-12) 1,000 mcg IM ONCE 1 mL 0RF E53.8 - Deficiency of other specified B group vitamins
== END 2023-11-23 09:48 | disposition home or self-care (01) ==
PROVIDERS: PCP Internal Medicine; Visit Provider Internal Medicine
DX: E53.8 Deficiency of other specified B group vitamins (principal)
CPT/HCPCS: 96372; J3420

== ENCOUNTER 2023-12-24 08:46 | Outpatient (AMB) | payer MEDICARE, SELFPAY ==
[2023-12-24 08:47] VITALS: BP 108/66; PULSE 87; O2SAT 98; BMI 19.6
--- NOTE | 2023-12-24 08:47 | A.OFFVIS_ITS ---
Intake Vital Signs 12/24/23 08:47 Height 5 ft 5 in Weight 118 lb BMI 19.6 BP 108/66 Blood Pressure Location Lt brachial Position Sitting Pulse 87 Pulse Source Pulse Oximeter Pulse Oximetry (%) 98 Oxygen Delivery Method Room Air Intake Visit Reasons: [facility] [id number]- see comments Intake Note: Patient is here for an Annual Wellness Visit. 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 Allergies Darvon Allergy (Intermediate, Verified 12/24/23 08:48) oral swelling Doxycycline Hyclate Allergy (Intermediate, Verified 12/24/23 08:48) diarrhea, severe diarrhea tetracycline [TETRACYCLINE] Allergy (Intermediate, Verified 12/24/23 08:48) Itching Medication List - Last Reconciled 12/24/23 by Beatrice Jacob PA-C azathioprine 100 mg PO DAILY betamethasone dipropionate 0.05% 1 appl topical DAILY PRN buspirone 10 mg PO DAILY cholestyramine (with sugar) 4 gram ea PO cyanocobalamin (vitamin B-12) 1,000 mcg IM Q4W 90 days dicyclomine 10 mg PO DAILY omeprazole 20 mg PO DAILY pyridoxine (vitamin B6) 100 mg PO DAILY raloxifene 60 mg PO DAILY tramadol 50 mg PO DAILY 90 days vibegron (Gemtesa) 75 mg PO DAILY HPI [facility] [id number]- see comments HPI Details 68-year-old female smoker with past [facility] history of GERD, asthma, impaired glucose tolerance, Crohn's disease, overactive bladder, generalized anxiety disorder last seen by Dr. Duarte 10/07/2023 coming in for annual well visit.? In review of the notes, patient has been receiving B12 shots for vitamin B12 deficiency. Colonoscopy UTD 09/2023 repeat 3 years, annual CT scan UTD 07/2023 with stable pulmonary nodule. Last mammogram 06/2023 BI-RADS 1 with 1 year follow up, DEXA scan completed 06/2023 showed osteoporosis. Today she tells us she has been doing generally well however has been struggling with intermittent diarrhea. She follows with GI who recommended Cholestyramine which she has been using with moderate relief. She mentioned she has increased anxiety and stress surrounding the diarrhea and has stopped doing her normal activities outside of the house for fear of having an episode. She also mention s she has been eating less and losing weight due to fear of having another episode. She also mentioned she has been following with physical therapy for her sciatica pain and has seen great improvement. [facility] Medical History (Updated 12/24/23 @ 09:47 by Beatrice Jacob PA-C) Breast cancer screening by mammogram Adult general medical exam Lip abscess Palpitations Flank pain Basal cell carcinoma Peptic ulcer disease Renal calculi Vitamin D deficiency Tobacco abuse Impaired glucose tolerance Anxiety and depression Anemia Asthma Osteopenia GERD (gastroesophageal reflux disease) Crohn's disease Surgical History (Updated 10/23/23 @ 13:45 by Elisha Canada RN) History of surgical removal of ganglion cyst Hx of lithotripsy Hx of dilation and curettage Hx of cystoscopy History of hysteroscopy History of colonoscopy History of cholecystectomy Hx of appendectomy H/O tubal ligation History of lumpectomy of left breast S/P small bowel resection Social History Housing: House Alcohol intake: current Alcohol intake frequency: does not drink Patient Tobacco Use Status: Current everyday Tobacco user Tobacco use type: Cigarette Cigarette Packs Per Day: 1 Cigarettes Per Day: 20.0 Years Smoked: 50 e-Cigarette/Vaping Use: Never Used Second Hand Smoke Exposure: Yes Current occupational status: 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 Cognitive needs: No Hearing needs: No Vision needs: Yes Questionnaire Medicare Wellness Checkup What [age] What gender do you identify with?: female During the past 4 weeks, how much have you been bothered by emotional problems such as feeling anxious, depressed, irritable, sad or downhearted, and blue?: slightly During the past 4 weeks, has your physical & emotional health limited your social activities with family, friends, neighbors, or groups?: slightly During the past 4 weeks, how much bodily pain have you generally had?: very mild pain During the past 4 weeks, was someone available to help you if you needed & wanted help?: yes, as much as I wanted During the past 4 weeks, what was the hardest physical activity you could do for at least 2 minutes?: moderate Can you get to places out of walking distance without help? (For eg., can you travel alone on buses, taxis or drive your car?): Yes Can you go shopping for groceries or clothes without someone's help?: Yes Can you prepare your own meals?: Yes Can you do your housework without help?: Yes Because of any health problems, do you need the help of another person with your personal care needs such as eating, bathing, dressing or getting around the house?: No Can you handle your own money without help?: Yes During the past 4 weeks, how would you rate your health in general?: good During the past 4 weeks how have things been going for you?: pretty well Are you having difficulties driving your car?: no Do you always fasten your seat belt when you are in a car?: yes, usually During past 4 weeks, have you been bothered by the following: never: Sexual problems? and Problems using the telephone?, seldom: Falling or dizzy when standing up and sometimes: Trouble eating well?, Teeth or denture problems? and Tiredness or fatigue? Have you fallen 2 or more times in the past year?: No Are you afraid of falling?: No Are you a smoker?: yes, but I'm not ready to quit During the past 4 weeks, how many drinks of wine, beer, or other alcoholic beverages did you have?: 1 drink or less per week Do you exercise for about 20 minutes 3 or more times a week?: yes, most of the time Have you been given information to help with the following?: no: Hazards in your house that might hurt you? and no: Keeping track of your medications? How often do you have trouble taking medicines the way you have been told to take them?: I always take medicine as prescribed How confident are you that you can control & manage most of your health problems?: very confident What is your race?: White PHQ-9 Over the last 2 weeks, how often have you been bothered by any of the following problems? 1. Little interest or pleasure in doing things: several days 2. Feeling down, depressed, or hopeless: several days 3. Trouble falling or staying asleep, or sleeping too much: several days 4. Feeling tired or having little energy: more than half the days 5. Poor appetite or overeating: more than half the days 6. Feeling bad about yourself - or that you are a failure or have let yourself or your family down: not at all 7. Trouble concentrating on things, such as reading the newspaper or watching television: not at all 8. Moving or speaking so slowly that other people could have noticed. Or the opposite - being so fidgety or restless that you have been moving around a lot more than usual: several days 9. Thoughts that you would be better off or of hurting yourself in some way: not at all Total score: 8 Depression Screening Interpretation: Positive Depression Screening Done: Yes 34695 - PHQ-9 Billing: Yes Source: Developed by Drs. Neymar Florez, Elsy Patel, Tan Alejandra and colleagues, with an educational colleen from [employer]. Review of Systems Const Denies body aches, Denies fatigue, Denies fever(s), Denies frequent falls, D enies headache(s) and Denies weakness Eyes Reports no additional complaints and Denies change in vision ENT Denies dysphagia, Denies dizziness, Denies facial pain, Denies headache(s), Denies nasal congestion and Denies odynophagia Card Denies chest pain, Denies syncope, Denies irregular heart rhythm, Denies leg edema, Denies lightheadedness and Denies dyspnea Resp Denies cough and Denies dyspnea GI Denies constipation, Denies dysphagia, Denies dyspepsia, Denies diarrhea, Denies nausea, Denies odynophagia and Denies vomiting Denies urinary frequency, Denies dysuria, Denies urinary hesitancy and Denies urinary urgency Musc Denies back pain and Denies myalgias Skin/Breast Reports system reviewed and no additional complaints, except as documented Neuro Denies dizziness, Denies syncope, Denies frequent falls, Denies headache(s) and Denies weakness Psych Reports no additional complaints Endo Denies fatigue Physical Exam Vital Signs: Last Vital Signs Pulse 87 12/24/23 08:47 BP 108/66 12/24/23 08:47 Pulse Ox 98 12/24/23 08:47 Oxygen Delivery Method Room Air 12/24/23 08:47 BMI result Body Mass Index 19.6 Const General: cooperative, healthy appearing, comfortable and no acute distress Nutritional Appearance: thin Orientation/consciousness: patient oriented x3 HEENT Head: Yes normocephalic Ears: hearing grossly normal bilaterally, external ears normal, TM normal on the left, EAC's normal and unable to visualize TM (Cerumen impaction) on the right General nose exam: Normal external nose present Face and sinus: Yes normal facial exam and Yes sinuses nontender Mouth: Normal oral and palatal mucosa present and tongue normal Throat: Yes posterior oropharynx normal Eyes General: appearance normal, both eyes and all related structures Conjunctivae: conjunctivae normal Pupils: Equal, round and reactive pupils present EOM: EOMs intact bilaterally and No Nystagmus present Neck Neck: Yes normal visual inspection, Yes full ROM and Yes no lymphadenopathy Chest Chest palpation & inspection: normal inspection of the chest Resp Effort & Inspection: normal respiratory effort Auscultation: clear to auscultation bilaterally, no crackles, no rales, no rhonchi, no wheezes and breath sounds present Cardio Rate: regular rate Rhythm: regular rhythm Peripheral pulses: radial pulses present and dorsalis pedis present GI Inspection: Yes normal to inspection and No Abdominal wall edema Palpation (GI): Soft to palpation, not firm and Tenderness to palpation present (GI) (Chronic discomfort) in the LLQ Auscultation: normal bowel sounds Rectal Exam - Female: deferred General: Yes no CVA tenderness Back/Spine/Pelvis Back: no CVA tenderness Skin General skin exam: no rashes or lesions noted Neuro General: patient oriented x3 Cranial nerves: Yes Equal, round and reactive pupils present, Yes Midline tongue present, Yes Ability to bilaterally elevate shoulders present and No Nystagmus present Gait exam (Neuro): Normal gait present Extrem General: Yes normal to inspection, Yes full ROM, No no pedal edema and No edema Psych Speech and movement: Normal speech and movement present Affect: normal affect Insight: Good insight present (Psych) Judgement: Good judgement present (Psych) Immunizations tetanus-diphtheria toxoids-Td 2 Lf unit-2 Lf unit/0.5 mL IM suspension Performing Provider: Beatrice Jacob PA-C Performing Location: [facility] Administered by: JENIFER Parson on 12/24/23 09:44 Dose Route Admin Location Dispensed Lot Number Expiration Date NDC Spinning Machine Tender 0.5 mL IM Left Deltoid 0.5 mL [id number] 07/11/24 [address]-8 [employer] VIS Given Date VIS Provided VIS Publication Date 12/24/23 Single Vaccine 21 Eligibility Eligibility Date Funding Source Not [facility] Eligible 12/24/23 [facility] funds Assessment & Plan Assessment & Plan (1) Low back pain: Code(s): M54.50 - Low back pain, unspecified Plan: Patient has been following with physical therapy and has found good improvement with back pain. She has had improved mobility and strength and has been able to return to most of her daily activities. Continue to follow with PT, and on tramadol refilled at this appointment. (2) Generalized anxiety disorder: Code(s): F41.1 - Generalized anxiety disorder Plan: Continue on buspirone, stable at this point. Has declined referral to counselor. (3) Overactive bladder: Code(s): N32.81 - Overactive bladder Plan: Follows with Urology on Gemtesa. (4) Osteopenia: Code(s): M85.80 - Other specified disorders of bone density and structure, unspecified site Qualifiers: Osteopenia location: multiple sites Qualified Code(s): M85.89 - Other specified disorders of bone density and structure, multiple sites Plan: Last DEXA scan 06/2023 with evidence of osteoporosis. On raloxifene without complication. Continue with light weight-bearing exercise and fall prevention. (5) Crohn's disease: Code(s): K50.90 - Crohn's disease, unspecified, without complications Qualifiers: Gastrointestinal tract location: large intestine Digestive disease complication type: without complication Qualified Code(s): K50.10 - Crohn's disease of large intestine without complications Plan: Last colonoscopy done 09/2023 biopsies consistent with inflammatory bowel disease. Continue to follow up with GI. On dicyclomine and cholestyramine. (6) Tobacco abuse: Comment: June 2022, July 2023 CT scan left 2 mm pulmonary nodule Code(s): Z72.0 - Tobacco use Plan: Patient is advised to stopped smoking. Nicotine replacement therapies are declined by patient at this visit. (7) Impaired glucose tolerance: Code(s): R73.02 - Impaired glucose tolerance (oral) Plan: Last A1c was at goal 5.9 %. Decrease the amount of carbohydrates such as pasta, bread, rice, and potatoes and limit the amount of sweets. Although fruits are generally healthy they should be eaten in moderation as they are still high in sugar. Hemoglobin A1c goal of less than 7%. (8) Asthma: Code(s): J45.909 - Unspecified asthma, uncomplicated Qualifiers: Asthma severity: mild Asthma persistence: intermittent Asthma complication type: uncomplicated Qualified Code(s): J45.20 - Mild intermittent asthma, uncomplicated Plan: Strongly advised to stop smoking. Patient has been having intermittent chest tightness primarily with allergies and recent humidity. Has used albuterol rescue inhaler in the past with good success but has not had an inhaler in quite some time. Prescription for albuterol inhaler sent to be used as needed every 4-6 hours. Re-evaluate at next appointment and avoidance of triggers. (9) GERD (gastroesophageal reflux disease): Code(s): K21.9 - Gastro-esophageal reflux disease without esophagitis Qualifiers: Esophagitis presence: without esophagitis Qualified Code(s): K21.9 - Gastro-esophageal reflux disease without esophagitis Plan: Avoid trigger foods such as citrus, tomato products, soda, caffeine, spicy foods and other foods that may be irritating to your stomach. Avoid laying flat 3-4 hours after eating and elevate the head of the bed 30 degrees to prevent acid from moving into the esophagus. Continue on omeprazole 20 mg. (10) B12 deficiency: Code(s): E53.8 - Deficiency of other specified B group vitamins Plan: B12 was elevated over 1999 on last labs 09/2023. Patient may skip this month dose of B12 injection. Ordered for repeat B12 level prior to next month injection. (11) Medicare annual wellness visit, subsequent: Code(s): Z00.00 - Encounter for general adult medical examination without abnormal findings Plan: Patient is up-to-date on all recommended screenings for her age. We will follow up with Gynecology to evaluate if Pap smear is still necessary at this time. Tetanus shot given at this appointment. MOLST and healthcare proxy forms given to patient to be filled out and brought back to office. Plan This note was constructed using voice recognition software. While every effort has been made to ensure accuracy and project coordinator, still areas may have been included sometimes these areas may affect the content or meeting of the given symptoms. Total time spent caring for the patient today was 34 minutes. This includes time spent before the visit reviewing the chart, time spent during the visit, and time spent after the visit and documentation. Orders: Orders Vitamin B12 Today E53.8 - Deficiency of other specified B group vitamins Td State Immunization Today Z23 - Encounter for immunization Medications: New albuterol sulfate 90 mcg/actuation 1 inh inhalation QID 6.7 grams 0RF Quality Reporting (2019) Depression/Bipolar (159/160/161/177) PHQ-9: Total score: 8 Coding Level of Care Code Medicare Subsequent (G0439) Diagnoses Low back pain M54.50 Generalized anxiety disorder F41.1 Overactive bladder N32.81 Osteopenia of multiple sites M85.89 Osteopenia location: multiple sites Crohn's disease of large intestine without complication K50.10 Gastrointestinal tract location: large intestine Digestive disease complication type: without complication Tobacco abuse Z72.0 Impaired glucose tolerance R73.02 Mild intermittent asthma without complication J45.20 Asthma severity: mild Asthma persistence: intermittent Asthma complication type: uncomplicated Gastroesophageal reflux disease without esophagitis K21.9 Esophagitis presence: without esophagitis B12 deficiency E53.8 Medicare annual wellness visit, subsequent Z00.00 CPT Codes Advance Care Planning - Time spent: 1-15 minutes, not on file ([id number]) Advance Care Planning Advance Care Planning discussion: Completed/Scanned (given to pt to fill out at home) Date of discussion: 12/24/23 Forms completed: None Time spent: 1-15 minutes, not on file Actual minutes spent: 5 Did not discuss due to Cultural/Spiritual beliefs: No
== END 2023-12-24 10:31 | disposition home or self-care (01) ==
PROVIDERS: PCP Internal Medicine
DX: Z23 Encounter for immunization (principal); Z00.00 Encounter for general adult medical examination without abnormal findings; K50.10 Crohn's disease of large intestine without complications; F17.210 Nicotine dependence, cigarettes, uncomplicated; M54.50 Low back pain, unspecified; F41.1 Generalized anxiety disorder; N32.81 Overactive bladder; M85.89 Other specified disorders of bone density and structure, multiple sites; R73.02 Impaired glucose tolerance (oral); J45.20 Mild intermittent asthma, uncomplicated; K21.9 Gastro-esophageal reflux disease without esophagitis; E53.8 Deficiency of other specified B group vitamins
CPT/HCPCS: 1124F; 90471; 90714; G0439

== ENCOUNTER 2023-12-24 10:01 | Outpatient (REF) | payer MEDICARE, SELFPAY ==
[2023-12-24 10:18] LABS: MANUAL DIFF FLAG NO
[2023-12-24 11:43] LABS: Basophils Absolute Auto 0.1 X10*3/uL (0.0-0.2); Basophils Percent Auto 1.1 % (0-2); Eosinophils Absolute Auto 0.3 X10*3/uL (0.0-0.4); Eosinophils Percent Auto 5.7 % (0-4); Hemoglobin 13.1 g/dl (12.0-16.0); Imm Gran Abs Auto 0.02 X10*3/uL (0.00-0.03); Imm Gran Pct Auto 0.4 % (0.0-0.4); Lymphocytes Absolute Auto 0.7 X10*3/uL (1.2-4.9); Lymphocytes Percent Auto 12.5 % (20-40); Mean Corpuscular HGB Conc 33.6 g/dl (31.0-35.0); Mean Corpuscular Hemoglobin 33.9 pg (27.0-33.0); Mean Platelet Volume 10.2 fL (9.4-12.3); Monocytes Absolute Auto 0.5 X10*3/uL (0.1-1.2); Monocytes Percent Auto 10.3 % (2-11); Neutrophils Absolute Auto 3.7 x10*3/uL (2.0-8.3); Platelet Count 306 X10*3/uL (160-400); Red Blood Count 3.86 X10*6/uL (4.20-5.50); Red Cell Distribution Width 13.6 % (11.0-16.0); White Blood Count 5.2 X10*3/uL (4.8-10.8)
[2023-12-24 12:28] LABS: Alanine Aminotransferase 11 U/L (0-31); Albumin Level 4.1 g/dL (3.5-5.0); Alkaline Phosphatase 86 U/L (39-117); Aspartate Amino Transferase 19 U/L (5-31); Bilirubin Direct 0.1 mg/dL (0.0-0.5); Bilirubin Total 0.3 mg/dL (0.0-1.0); Total Protein 6.9 g/dL (6.5-8.0)
[2023-12-24 12:40] LABS: Vitamin B12 432 pg/mL (200-900)
== END 2023-12-24 10:02 | disposition home or self-care (01) ==
LOC: HO.LABR 10:01
PROVIDERS: PCP Internal Medicine; Visit Provider Internal Medicine
DX: K50.80 Crohn's disease of both small and large intestine without complications (principal); E53.8 Deficiency of other specified B group vitamins; Z51.81 Encounter for therapeutic drug level monitoring
CPT/HCPCS: 36415; 80076; 82607; 85025

== ENCOUNTER 2024-01-06 09:00 | Outpatient (RCR) | payer MEDICARE, SELFPAY ==
--- NOTE | 2023-11-13 16:27 | MHC.PT.EP ---
[facility] [place] [facility] [place] [facility] [place] [facility] [address] Rakesh Londono [address] [phone] F: [phone] F: [phone] F: [phone] F: [phone] Physical Therapy Plan of Care Date of Evaluation: 11/11/23 Date of Surgery: n/a Diagnosis: Low back pain, unspecified Assessment: Pt is a pleasant 68yo F who presents to PT with low back pain occasionally radiating into LE's. Pt presents to PT with current impairments in pain, decreased lumbar ROM, decreased core stabilization, decreased hip/glute strength, impaired posture, and impaired gait. She is limited functionally by getting in/out of bed, laying flat, sit>stand transitions, bending at back, and lifting. She is an excellent candidate for skilled PT in order to address current impairments to facilitate return to PLOF. 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 Manual therapy to restore motion and function. Therapeutic exercise to improve strength and flexibility. Neuromuscular re-education for posture and balance. Therapeutic activities to return to functional activities of daily living. Electronically signed by: Nadine Bernardo, PT, DPT Please sign and return to therapist. Thank you for your referral.
--- NOTE | 2024-01-06 16:35 | MHC.PT.DC ---
[facility] [place] Office [place] [facility] [place] Office [address] Rakesh Londono [address] [phone] F: [phone] F: [phone] F: [phone] F: [phone] Physical Therapy Discharge Report Diagnosis: Low back pain, unspecified Date of Surgery: n/a Date of Evaluation: 11/11/23 Date of Discharge: 01/06/24 Treatments to Date: 8 Cancellations to Date: No Shows to Date: Discharge Status: Improved Function Independent with HEP Discharge Summary: Pt has made excellent progress since SOC. She has had a significant decrease in pain. She has improved functional mobility and is able to get in/out of bed with minimal to no discomfort. She is able to walk her dog for ~30-40 min with minimal to no discomfort. She is independent with her HEP. She is being D/C from skilled PT. I provided pt with printed, updated copy of HEP, pt verbalized understanding and reports no further questions or concerns for PT at this time Electronically signed by: Nadine Bernardo, PT, DPT Please sign and return to therapist. Thank you for your referral.
== END 2024-01-06 16:35 | disposition home or self-care (01) ==
LOC: HO.PT 09:00
PROVIDERS: PCP Internal Medicine; Visit Provider Internal Medicine
DX: M54.50 Low back pain, unspecified (principal)
CPT/HCPCS: 97110; 97162

== ENCOUNTER 2024-01-21 08:28 | Outpatient (AMB) | payer MEDICARE, SELFPAY ==
--- NOTE | 2024-01-21 08:56 | AM.OFFVISNUR ---
Intake Visit Reasons: B-12 shot Allergies Darvon Allergy (Intermediate, Verified 12/24/23 08:48) oral swelling Doxycycline Hyclate Allergy (Intermediate, Verified 12/24/23 08:48) diarrhea, severe diarrhea tetracycline [TETRACYCLINE] Allergy (Intermediate, Verified 12/24/23 08:48) Itching Office Meds cyanocobalamin (vitamin B-12) 1,000 mcg/mL injection solution Performing Provider: Tae Duarte MD [facility] Administered by: Rachana Godfrey RN on 01/21/24 08:56 Dose Route Admin Location Dispensed Lot Number Expiration Date NDC Computer Forensic Specialist 1,000 mcg IM left deltoid 1 mL [id number] 01/28/25 01091-508-64 [employer] Assessment & Plan Assessment & Plan Orders: Orders AMB Vitamin B12 Injection Patient Supplied Today E53.8 - Deficiency of other specified B group vitamins Medications: New cyanocobalamin (vitamin B-12) 1,000 mcg IM ONCE 1 mL 0RF E53.8 - Deficiency of other specified B group vitamins
== END 2024-01-21 09:03 | disposition home or self-care (01) ==
PROVIDERS: PCP Internal Medicine; Visit Provider Internal Medicine
DX: E53.8 Deficiency of other specified B group vitamins (principal)
CPT/HCPCS: 96372; J3420

== ENCOUNTER 2024-01-21 09:15 | Outpatient (REF) | payer MEDICARE, SELFPAY ==
[2024-01-21 10:40] LABS: Alanine Aminotransferase 15 U/L (0-31); Alkaline Phosphatase 83 U/L (39-117); Aspartate Amino Transferase 23 U/L (5-31); Bilirubin Direct 0.2 mg/dL (0.0-0.5); Bilirubin Total 0.5 mg/dL (0.0-1.0); Total Protein 6.6 g/dL (6.5-8.0)
== END 2024-01-21 09:16 | disposition home or self-care (01) ==
LOC: HO.LABR 09:15
PROVIDERS: PCP Internal Medicine; Visit Provider Internal Medicine
DX: K50.80 Crohn's disease of both small and large intestine without complications (principal); Z79.899 Other long term (current) drug therapy
CPT/HCPCS: 36415; 80076

== ENCOUNTER 2024-02-22 08:15 | Outpatient (REF) | payer MEDICARE, SELFPAY ==
[2024-02-22 10:05] LABS: Alanine Aminotransferase 16 U/L (0-31); Alkaline Phosphatase 86 U/L (39-117); Aspartate Amino Transferase 22 U/L (5-31); Bilirubin Direct 0.2 mg/dL (0.0-0.5); Bilirubin Total 0.5 mg/dL (0.0-1.0); Total Protein 6.7 g/dL (6.5-8.0)
== END 2024-02-22 08:16 | disposition home or self-care (01) ==
LOC: HO.LABR 08:15
PROVIDERS: PCP Internal Medicine; Referring Provider Internal Medicine; Visit Provider Internal Medicine
DX: K50.80 Crohn's disease of both small and large intestine without complications (principal); E53.8 Deficiency of other specified B group vitamins
CPT/HCPCS: 36415; 80076; 96372

== ENCOUNTER 2024-02-22 08:15 | Outpatient (AMB) | payer MEDICARE, SELFPAY ==
--- NOTE | 2024-02-22 08:22 | AM.OFFVISNUR ---
Intake Visit Reasons: B-12 injection Allergies Darvon Allergy (Intermediate, Verified 12/24/23 08:48) oral swelling Doxycycline Hyclate Allergy (Intermediate, Verified 12/24/23 08:48) diarrhea, severe diarrhea tetracycline [TETRACYCLINE] Allergy (Intermediate, Verified 12/24/23 08:48) Itching Office Meds cyanocobalamin (vitamin B-12) 1,000 mcg/mL injection solution Performing Provider: Tae Duarte MD [facility] Administered by: Remedios Baez RN on 02/22/24 08:22 Dose Route Admin Location Dispensed Lot Number Expiration Date NDC Corporate Communications Associate 1,000 mcg IM 1 mL [id number] 02/28/25 24704-414-78 [employer] Assessment & Plan Assessment & Plan Orders: Orders AMB Vitamin B12 Injection Patient Supplied Today E53.8 - Deficiency of other specified B group vitamins Medications: New cyanocobalamin (vitamin B-12) 1,000 mcg IM ONCE 1 mL 0RF E53.8 - Deficiency of other specified B group vitamins
== END 2024-02-22 08:31 | disposition home or self-care (01) ==
PROVIDERS: PCP Internal Medicine; Visit Provider Internal Medicine
DX: E53.8 Deficiency of other specified B group vitamins (principal)
CPT/HCPCS: J3420

== ENCOUNTER 2024-03-23 08:23 | Outpatient (REF) | payer MEDICARE, SELFPAY ==
[2024-03-23 08:52] LABS: MANUAL DIFF FLAG NO
[2024-03-23 09:41] LABS: Basophils Absolute Auto 0.1 X10*3/uL (0.0-0.2); Basophils Percent Auto 2.2 % (0-2); Eosinophils Absolute Auto 0.3 X10*3/uL (0.0-0.4); Eosinophils Percent Auto 9.1 % (0-4); Hematocrit 37.9 % (37.0-47.0); Hemoglobin 12.8 g/dl (12.0-16.0); Imm Gran Abs Auto 0.01 X10*3/uL (0.00-0.03); Imm Gran Pct Auto 0.3 % (0.0-0.4); Lymphocytes Absolute Auto 0.8 X10*3/uL (1.2-4.9); Lymphocytes Percent Auto 22.2 % (20-40); Mean Corpuscular HGB Conc 33.8 g/dl (31.0-35.0); Mean Corpuscular Hemoglobin 35.3 pg (27.0-33.0); Mean Corpuscular Volume 104.4 fL (80.0-98.0); Monocytes Absolute Auto 0.5 X10*3/uL (0.1-1.2); Monocytes Percent Auto 13.9 % (2-11); Neutrophils Absolute Auto 1.9 x10*3/uL (2.0-8.3); Neutrophils Percent Auto 52.3 % (45-73); Platelet Count 327 X10*3/uL (160-400); Red Blood Count 3.63 X10*6/uL (4.20-5.50); Red Cell Distribution Width 15.2 % (11.0-16.0); White Blood Count 3.6 X10*3/uL (4.8-10.8)
[2024-03-23 10:13] LABS: Alanine Aminotransferase 17 U/L (0-31); Alkaline Phosphatase 91 U/L (39-117); Bilirubin Direct 0.1 mg/dL (0.0-0.5); Bilirubin Total 0.3 mg/dL (0.0-1.0); Total Protein 6.6 g/dL (6.5-8.0)
[2024-03-23 10:45] LABS: Aspartate Amino Transferase 27 U/L (5-31)
== END 2024-03-23 08:24 | disposition home or self-care (01) ==
LOC: HO.LABR 08:23
PROVIDERS: Absent Provider Internal Medicine; PCP Internal Medicine; Visit Provider Internal Medicine
DX: K50.80 Crohn's disease of both small and large intestine without complications (principal); E53.8 Deficiency of other specified B group vitamins
CPT/HCPCS: 36415; 80076; 85025; 96372

== ENCOUNTER 2024-03-23 08:23 | Outpatient (AMB) | payer MEDICARE, SELFPAY ==
--- NOTE | 2024-03-23 08:37 | AM.OFFVISNUR ---
Intake Visit Reasons: B12 Shot Allergies Darvon Allergy (Intermediate, Verified 12/24/23 08:48) oral swelling Doxycycline Hyclate Allergy (Intermediate, Verified 12/24/23 08:48) diarrhea, severe diarrhea tetracycline [TETRACYCLINE] Allergy (Intermediate, Verified 12/24/23 08:48) Itching Office Meds cyanocobalamin (vitamin B-12) 1,000 mcg/mL injection solution Performing Provider: Tae Duarte MD Performing Location: [facility] Administered by: Elvi Almonte LPN on 03/23/24 08:37 Dose Route Admin Location Dispensed Lot Number Expiration Date [facility] [employer] Poisoner 1,000 mcg IM left deltoid 1 mL [id number] 02/28/25 21386-100-67 [employer] Assessment & Plan Assessment & Plan Orders: Orders AMB Vitamin B12 Injection Patient Supplied Today E53.8 - Deficiency of other specified B group vitamins Medications: New cyanocobalamin (vitamin B-12) 1,000 mcg IM ONCE 1 mL 0RF b12 deficiency E53.8 - Deficiency of other specified B group vitamins
== END 2024-03-23 08:41 | disposition home or self-care (01) ==
PROVIDERS: PCP Internal Medicine; Visit Provider Internal Medicine
DX: E53.8 Deficiency of other specified B group vitamins (principal)
CPT/HCPCS: J3420

== ENCOUNTER 2024-04-08 14:15 | Outpatient (AMB) | payer MEDICARE, SELFPAY ==
--- NOTE | 2024-04-08 14:23 | A.OFFPC_ITS ---
Vital Signs 04/08/24 14:24 Height 5 ft 5 in Weight 120 lb 4 oz BMI 20.0 BP 136/70 Blood Pressure Location Lt brachial Position Sitting Pulse 94 Pulse Source Pulse Oximeter Pulse Oximetry (%) 98 Oxygen Delivery Method Room Air Intake Visit Reasons: 3 Month Follow Up Intake Note: Patient is here to follow up on Asthma, Crohn's disease, IGT , Low back pain. Jointer Machine Required: No Ingredient Handler: Not Required per policy Accompanied by: Self / Same As Patient Allergies Darvon Allergy (Intermediate, Verified 04/08/24 14:24) oral swelling Doxycycline Hyclate Allergy (Intermediate, Verified 04/08/24 14:24) diarrhea, severe diarrhea tetracycline [TETRACYCLINE] Allergy (Intermediate, Verified 04/08/24 14:24) Itching Tobacco use date assessed: 04/08/24 Fall risk assessment: No Falls in past year Last assessed Fall Risk: 04/08/24 Dental Screening Dental Screen Date: 10/07/23 HPI 3 Month Follow Up HPI Details 8-year-old female smoker with a history of GERD, asthma, impaired glucose tolerance Crohn's disease and overactive bladder last seen in 12/19/2023 having the annual wellness exam. Patient comes in for follow-up. Patient's bone density is up-to-date mammogram is up-to-date colonoscopy up-to-date 2023. [facility] Medical History (Updated 04/08/24 @ 14:39 by Tae Duarte MD) Breast cancer screening by mammogram Adult general medical exam Lip abscess Palpitations Flank pain Basal cell carcinoma Peptic ulcer disease Renal calculi Vitamin D deficiency Tobacco abuse Impaired glucose tolerance Anxiety and depression Anemia Asthma Osteopenia GERD (gastroesophageal reflux disease) Crohn's disease Surgical History (Updated 04/08/24 @ 14:30 by JENIFER Hudson) History of tooth extraction History of surgical removal of ganglion cyst Hx of lithotripsy Hx of dilation and curettage Hx of cystoscopy History of hysteroscopy History of colonoscopy History of cholecystectomy Hx of appendectomy H/O tubal ligation History of lumpectomy of left breast S/P small bowel resection Social History Housing: House Alcohol intake: current Alcohol intake frequency: does not drink Patient Tobacco Use Status: Current everyday Tobacco user Tobacco use type: Cigarette Cigarette Packs Per Day: 1 Cigarettes Per Day: 15 Years Smoked: 50 e-Cigarette/Vaping Use: Never Used Second Hand Smoke Exposure: Yes service: No Current occupational status: 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 Neymar Florez, Elsy Patel, Tan Alejandra and colleagues, with an educational colleen from [employer]. Physical exam (Primary Care) Vital Signs: Last Vital Signs Pulse 94 04/08/24 14:24 BP 136/70 04/08/24 14:24 Pulse Ox 98 04/08/24 14:24 Oxygen Delivery Method Room Air 04/08/24 14:24 BMI result Body Mass Index 20.0 Tobacco/Smoking Status: Tobacco use Status Tobacco use date assessed 04/08/24 04/08/24 14:33 Patient Tobacco Use Status Current everyday Tobacco 04/08/24 14:33 Tobacco use type Cigarette 04/08/24 14:33 e-Cigarette/Vaping Use Never Used 04/08/24 14:33 Thrive Assessment: Date of Thrive Assessment Date Thrive assessed 10/07/23 04/08/24 14:33 Const General: alert; No acute distress Eyes Conjunctivae: conjunctivae normal Resp Auscultation: clear to auscultation bilaterally Cardio Rate: regular rate Rhythm: regular rhythm GI Inspection: Yes normal to inspection Extrem General: Yes normal to inspection and No edema Results AMB Hemoglobin A1c AMB Hemoglobin A1c 5.8 % Last Edit by JENIFER Hudson on 04/08/24 14:35 Results Reviewed Results Reviewed: Laboratory Last Values Hgb A1c (Clinic) 5.8 % (4.0-6.0) 04/08/24 14:22 Coding Level of Care Code Est Pt Level 4 (68590) Diagnoses Tobacco abuse Z72.0 Mild intermittent asthma without complication J45.20 Asthma severity: mild Asthma persistence: intermittent Asthma complication type: uncomplicated Gastroesophageal reflux disease without esophagitis K21.9 Esophagitis presence: without esophagitis Impaired glucose tolerance R73.02 Osteopenia of multiple sites M85.89 Osteopenia location: multiple sites Assessment & Plan Assessment & Plan (1) Tobacco abuse: Comment: June 2022, July 2023 CT scan left 2 mm pulmonary nodule Code(s): Z72.0 - Tobacco use Category: Medical Plan: Patient is strongly advised to stop smoking. still smoking 15 a day (2) Asthma: Code(s): J45.909 - Unspecified asthma, uncomplicated Category: Medical Qualifiers: Asthma severity: mild Asthma persistence: intermittent Asthma complication type: uncomplicated Qualified Code(s): J45.20 - Mild intermittent asthma, uncomplicated Plan: Patient is advised to stop smoking! On albuterol as needed (3) GERD (gastroesophageal reflux disease): Code(s): K21.9 - Gastro-esophageal reflux disease without esophagitis Category: Medical Qualifiers: Esophagitis presence: without esophagitis Qualified Code(s): K21.9 - Gastro-esophageal reflux disease without esophagitis Plan: Avoid the foods that causes that usually spicy foods, tomato products, juices, coffee, soda and foods that your sensitive to. After eating do not lie down, allow 3-4 hours before in lie down. And keep the head of bed above 30 degrees to avoid the acid from going up. (4) Impaired glucose tolerance: Code(s): R73.02 - Impaired glucose tolerance (oral) Category: Medical Plan: Decrease the amount of carbohydrate intake, pasta, bread, rice and potatoes are all sugar and that is aside from all the sweet stuff, remember that fruits are good but they are Sweet also. (5) Osteopenia: Comment: Bone density 06/2023 Code(s): M85.80 - Other specified disorders of bone density and structure, unspecified site Category: Medical Qualifiers: Osteopenia location: multiple sites Qualified Code(s): M85.89 - Other specified disorders of bone density and structure, multiple sites Plan: Patient is up-to-date with bone density and is on raloxifene Orders: Orders AMB Hemoglobin A1c Today R73.02 - Impaired glucose tolerance (oral) Medications: Refilled tramadol 50 mg PO DAILY 90 days 90 tabs 0RF K13.0 - Diseases of lips
[2024-04-08 14:24] VITALS: BP 136/70; PULSE 94; O2SAT 98
== END 2024-04-08 14:49 | disposition home or self-care (01) ==
PROVIDERS: PCP Internal Medicine; Visit Provider Internal Medicine
DX: Z72.0 Tobacco use (principal); J45.20 Mild intermittent asthma, uncomplicated; K21.9 Gastro-esophageal reflux disease without esophagitis; R73.02 Impaired glucose tolerance (oral); M85.89 Other specified disorders of bone density and structure, multiple sites

== ENCOUNTER → 2024-04-08 14:15 | Outpatient (BNVA) | payer MEDICARE, SELFPAY | PROVIDERS: PCP Internal Medicine; Visit Provider Internal Medicine | DX: J45.20 Mild intermittent asthma, uncomplicated (principal); K21.9 Gastro-esophageal reflux disease without esophagitis; R73.02 Impaired glucose tolerance (oral); M85.89 Other specified disorders of bone density and structure, multiple sites; Z72.0 Tobacco use | CPT/HCPCS: 83036; 99212 ==

== ENCOUNTER 2024-04-22 08:20 | Outpatient (AMB) | payer MEDICARE, SELFPAY ==
--- NOTE | 2024-04-22 08:33 | AM.OFFVISNUR ---
Intake Visit Reasons: B12 Shot Allergies Darvon Allergy (Intermediate, Verified 04/08/24 14:24) oral swelling Doxycycline Hyclate Allergy (Intermediate, Verified 04/08/24 14:24) diarrhea, severe diarrhea tetracycline [TETRACYCLINE] Allergy (Intermediate, Verified 04/08/24 14:24) Itching Office Meds cyanocobalamin (vitamin B-12) 1,000 mcg/mL injection solution Performing Provider: Tae Duarte MD [facility] Administered by: Rachana Godfrey RN on 04/22/24 08:33 Dose Route Admin Location Dispensed Lot Number Expiration Date [facility] Correctional Classification Counselor 1,000 mcg IM left deltoid 1 mL [id number] 02/28/25 84121-157-00 [employer] Assessment & Plan Assessment & Plan Orders: Orders AMB Vitamin B12 Injection Patient Supplied Today E53.8 - Deficiency of other specified B group vitamins Medications: New cyanocobalamin (vitamin B-12) 1,000 mcg IM ONCE 1 mL 0RF E53.8 - Deficiency of other specified B group vitamins
== END 2024-04-22 08:36 | disposition home or self-care (01) ==
PROVIDERS: PCP Internal Medicine; Visit Provider Internal Medicine
DX: E53.8 Deficiency of other specified B group vitamins (principal)

== ENCOUNTER 2024-04-22 08:20 | Outpatient (REF) | payer MEDICARE, SELFPAY ==
[2024-04-22 09:03] LABS: MANUAL DIFF FLAG NO
[2024-04-22 09:08] LABS: Basophils Absolute Auto 0.1 X10*3/uL (0.0-0.2); Basophils Percent Auto 1.3 % (0-2); Eosinophils Absolute Auto 0.3 X10*3/uL (0.0-0.4); Eosinophils Percent Auto 4.7 % (0-4); Hematocrit 39.1 % (37.0-47.0); Hemoglobin 13.4 g/dl (12.0-16.0); Imm Gran Abs Auto 0.02 X10*3/uL (0.00-0.03); Imm Gran Pct Auto 0.4 % (0.0-0.4); Lymphocytes Absolute Auto 0.8 X10*3/uL (1.2-4.9); Lymphocytes Percent Auto 15.3 % (20-40); Mean Corpuscular HGB Conc 34.3 g/dl (31.0-35.0); Mean Corpuscular Hemoglobin 35.4 pg (27.0-33.0); Mean Corpuscular Volume 103.2 fL (80.0-98.0); Mean Platelet Volume 9.7 fL (9.4-12.3); Monocytes Absolute Auto 0.4 X10*3/uL (0.1-1.2); Monocytes Percent Auto 7.5 % (2-11); Neutrophils Absolute Auto 3.9 x10*3/uL (2.0-8.3); Neutrophils Percent Auto 70.8 % (45-73); Platelet Count 331 X10*3/uL (160-400); Red Blood Count 3.79 X10*6/uL (4.20-5.50); Red Cell Distribution Width 13.8 % (11.0-16.0); White Blood Count 5.5 X10*3/uL (4.8-10.8)
[2024-04-22 09:57] LABS: Alanine Aminotransferase 16 U/L (0-31); Albumin Level 4.3 g/dL (3.5-5.0); Alkaline Phosphatase 86 U/L (39-117); Aspartate Amino Transferase 23 U/L (5-31); Bilirubin Direct 0.1 mg/dL (0.0-0.5); Bilirubin Total 0.4 mg/dL (0.0-1.0); Total Protein 7.1 g/dL (6.5-8.0)
== END 2024-04-22 08:21 | disposition home or self-care (01) ==
LOC: HO.LABR 08:20
PROVIDERS: Absent Provider Internal Medicine; PCP Internal Medicine; Visit Provider Internal Medicine
DX: K50.80 Crohn's disease of both small and large intestine without complications (principal); E53.8 Deficiency of other specified B group vitamins
CPT/HCPCS: 36415; 80076; 85025; 96372; J3420

== ENCOUNTER 2024-04-29 08:04 | Outpatient (REF) | payer MEDICARE, SELFPAY | END 2024-04-29 08:05 | disposition home or self-care (01) | LOC: HO.US 08:04 | PROVIDERS: PCP Internal Medicine; Visit Provider Urology | DX: Z87.442 Personal history of urinary calculi (principal) | CPT/HCPCS: 76775 ==

== ENCOUNTER 2024-05-02 08:31 | Outpatient (REF) | payer MEDICARE, SELFPAY ==
[2024-05-02 21:23] LABS: Urine Cytology See Pathology rpt
== END 2024-05-02 08:32 | disposition home or self-care (01) ==
LOC: HO.LAB 08:31
PROVIDERS: PCP Internal Medicine; Visit Provider Urology
DX: N32.81 Overactive bladder (principal); R39.9 Unspecified symptoms and signs involving the genitourinary system; R31.29 Other microscopic hematuria; N20.0 Calculus of kidney; Z87.442 Personal history of urinary calculi; F17.200 Nicotine dependence, unspecified, uncomplicated
CPT/HCPCS: 51798; 81003; 87086; 87088; 87186; 88112; 99212

== ENCOUNTER 2024-05-02 08:31 | Outpatient (AMB) | payer MEDICARE, SELFPAY ==
--- NOTE | 2024-05-01 16:59 | A.OFFVIS_ITS ---
Intake Visit Reasons: 1y/US Intake Note: Patient is Present for Follow Up Ultrasound Urology Medication: Vitamin B6, Gemtesa Antibiotic Allergies: None Blood Thinners: None PVR: 129ml Patient reports that she is feeling symptoms of UTI, States that she does feel some burning and pressure in bladder Staff Nurse Required: No Accompanied by: Self / Same As Patient Allergies Darvon Allergy (Intermediate, Verified 05/02/24 09:43) oral swelling Doxycycline Hyclate Allergy (Intermediate, Verified 05/02/24 09:43) diarrhea, severe diarrhea tetracycline [TETRACYCLINE] Allergy (Intermediate, Verified 05/02/24 09:43) Itching Medication List - Last Reconciled 05/02/24 by Catrachita Smith MD albuterol sulfate 90 mcg/actuation 1 inh inhalation QID azathioprine 100 mg PO DAILY betamethasone dipropionate 0.05% 1 appl topical DAILY PRN buspirone 10 mg PO DAILY cholestyramine (with sugar) 4 gram ea PO cyanocobalamin (vitamin B-12) 1,000 mcg IM Q4W 90 days dicyclomine 10 mg PO DAILY nitrofurantoin monohyd/m-cryst 100 mg (Macrobid) 100 mg PO BID omeprazole 20 mg PO DAILY pyridoxine (vitamin B6) 100 mg PO DAILY raloxifene 60 mg PO DAILY tramadol 50 mg PO DAILY 90 days vibegron (Gemtesa) 75 mg PO DAILY HPI Comments Details: 05/02/24--Vivian is a 68-year-old female who presents today to the office for a follow-up. Followed for kidney stones, OAB prescribed gemtesa, and microscopic hematuria. Comorbidity nicotine use. Previous urine cytology 03/12/2022-negative. Will repeat urine cytology. FU- renal US 04/29/24- not officially read, review of imaging bilateral simple cysts, left kidney too small kidney stones, largest 2 mm. Bladder scan PVR 129 mL. The patient does complain of some irritative voiding symptoms we will send urine for culture and empirically start Macrobid 100 mg twice a day for 7 days. Left kidney stones-small we will continue to monitor. Review of charts: 05/04/2023?She is followed today for 24-hour collection results. I have reviewed the 24-hour urine collection results from 03/03/2023 revealed urine volume was 3.4 L, urine calcium was 166. I have reviewed CAT scan results from 11/05/2022 revealed no calculi was seen, however, multiple simple cysts noted. She is on Myrbetriq 50 mg for overactive bladder and is prescribed Vitamin B6 100 mg daily. I have review and discussed stone analysis results - CaOX Procedures: Left ESWL 04/02/2022 24 hour urine results: Total volume 2.3 liters, Calcium 164 mg; Oxalate 46 mg, Sodium 109, Citrate 300 mg. Renal US?06/09/2022-- Kidneys: WNL, No evidence of renal calculi. Right kidney: Benign-appearing 1.1 cm renal cyst. Left kidney: Benign-appearing 1 cm renal cyst. [facility] Medical History Breast cancer screening by mammogram Adult general medical exam Lip abscess Palpitations Flank pain Basal cell carcinoma Peptic ulcer disease Renal calculi Vitamin D deficiency Tobacco abuse Impaired glucose tolerance Anxiety and depression Anemia Asthma Osteopenia GERD (gastroesophageal reflux disease) Crohn's disease Surgical History History of tooth extraction History of surgical removal of ganglion cyst Hx of lithotripsy Hx of dilation and curettage Hx of cystoscopy History of hysteroscopy History of colonoscopy History of cholecystectomy Hx of appendectomy H/O tubal ligation History of lumpectomy of left breast S/P small bowel resection Social History Housing: House Alcohol intake: current Alcohol intake frequency: does not drink Patient Tobacco Use Status: Current everyday Tobacco user Tobacco use type: Cigarette Cigarette Packs Per Day: 1 Cigarettes Per Day: 15 Years Smoked: 50 e-Cigarette/Vaping Use: Never Used Second Hand Smoke Exposure: Yes service: No Current occupational status: 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 Cognitive needs: No Hearing needs: No Vision needs: Yes Review of Systems Const All systems reviewed & are unremarkable except as noted in HPI and below Reports no additional complaints Eyes Reports no additional complaints ENT Reports no additional complaints Card Reports no additional complaints Resp Reports no additional complaints GI Reports no additional complaints Reports as per HPI Musc Reports no additional complaints Skin/Breast Reports system reviewed and no additional complaints, except as documented Neuro Reports no additional complaints Psych Reports no additional complaints Endo Reports no additional complaints Luc/Lymph Reports no additional complaints Aller/Immun Reports no additional complaints Office Procedures Post Void Residual Post Residual Void Post Void Residual (PVR): 129 [id number] Void Residual by ultrasound Results AMB Urinalysis, Automated UA Leukoctes 125 Ranjeet/uL Last Edit by Danisha Barr [facility] on 05/02/24 09:47 UA Nitrite Negative Last Edit by Danihsa Barr, A on 05/02/24 09:47 UA Urobilinogen 0.2 mg/dL Last Edit by Danisha Barr A on 05/02/24 09:4 7 UA Protein 0 mg/dL Last Edit by Danisha Barr A on 05/02/24 09:47 UA pH 6.0 Last Edit by Danisha Barr, A on 05/02/24 09:47 UA Blood 80 Darrin/uL Last Edit by Danisah Barr [facility] on 05/02/24 09:47 UA Specific [place] 1.010 Last Edit by Danisha Barr [facility] on 05/02/24 09: 47 UA Ketone Negative Last Edit by Danihsa Barr, A on 05/02/24 09:47 UA Bilirubin 0 mg/dL Last Edit by Danisha Barr A on 05/02/24 09:47 UA Glucose 0 mg/dL Last Edit by Danisha Barr A on 05/02/24 09:47 Results Reviewed Results Reviewed: renal US 04/29/24- not officially read, review of imaging bilateral simple cysts, left kidney too small kidney stones, largest 2 mm. Collected: 03/12/22 Location: .LAB Received: 03/14/22 Diagnosis Urine: Negative for high grade urothelial carcinoma. See comment. COMMENT: Cellular specimen consisting of few single urothelial cells, squamous cells, red blood cells and relatively numerous mixed inflammatory cells. Material Received Urine Gross Description 50 cc clear faint yellow fluid received. Date of Service: 06/09/22 EXAMINATION: US RETROPERITONEAL LIMITED (RENAL ONLY) CLINICAL INFORMATION: Calculus of kidney. COMPARISON: CT abdomen and pelvis without and with contrast 03/03/2022. Ultrasound abdomen complete 03/23/2014. TECHNIQUE: Real-time imaging of the kidneys.? FINDINGS: RIGHT KIDNEY: 10.2 x 3.7 x 4.6 cm (SAG x AP x TRV). The kidney is normal in size, contour, and echogenicity. Renal cortical thickness is normal. No renal calculi or hydronephrosis. Benign-appearing 1.1 cm renal cyst, no imaging follow-up recommended. LEFT KIDNEY: 10.1 x 6.8 x 4.2 cm (SAG x AP x TRV). The kidney is normal in size, contour, and echogenicity. Renal cortical thickness is normal. No renal calculi or hydronephrosis. Benign-appearing 1 cm renal cyst, no imaging follow-up recommended. IMPRESSION: No hydronephrosis or nephrolithiasis. Assessment & Plan Assessment & Plan (1) Microscopic hematuria: Code(s): R31.29 - Other microscopic hematuria Category: Medical (2) Overactive bladder: Code(s): N32.81 - Overactive bladder Category: Medical (3) Kidney stone on left side: Code(s): N20.0 - Calculus of kidney Category: Medical (4) History of renal calculi: Comment: April 2022 left ESWL Code(s): Z87.442 - Personal history of urinary calculi Category: Medical (5) Nicotine dependence: Code(s): F17.200 - Nicotine dependence, unspecified, uncomplicated Category: Medical (6) UTI symptoms: Code(s): R39.9 - Unspecified symptoms and signs involving the genitourinary system Category: Medical Plan Continue Vitamin B6 100 mg daily. Add lemon to water and add citrate to diet. Gemtesa 75 mg daily. Urine culture, repeat urine cytology. Will empirically start Macrobid b.i.d. for 7 days Follow-up in one year with renal US prior. Orders: Orders AMB Post Void Residual by ultrasound Today N32.81 - Overactive bladder AMB Urinalysis Automated Today Z13.9 - Encounter for screening, unspecified US renal BI 10 Months N20.0 - Calculus of kidney Medications: New nitrofurantoin monohyd/m-cryst 100 mg (Macrobid) must administer with a meal/food 100 mg PO BID 14 caps 0RF Patient Instructions: The patient had an opportunity to ask questions regarding treatment plan. The patient expressed understanding and agreement with the above treatment plan. The patient is aware they should contact our office by phone for worsening of their current condition or the appearance of new symptoms. Compliance is encouraged with any medications and followup testing that is ordered. It is a privilege to be allowed the opportunity to participate in the urologic care of your patient. If you have any questions or concerns regarding treatment for the above conditions please do not hesitate to contact me. The office telephone contact is [phone]. This note is constructed in part using voice recognition software. While every effort has been made to ensure accuracy tube mounter errors may have been included. Yours sincerely, Catrachita Smith MD Coding Level of Care Code Est Pt Level 4 (56163) Diagnoses Microscopic hematuria R31.29 Overactive bladder N32.81 Kidney stone on left side N20.0 History of renal calculi Z87.442 Nicotine dependence F17.200 UTI symptoms R39.9 CPT Codes Post Residual Void - PVR CPT Code: 17871-[id number] Void Residual by ultrasound ([id number])
== END 2024-05-02 10:33 | disposition home or self-care (01) ==
PROVIDERS: PCP Internal Medicine; Visit Provider Urology
DX: R31.29 Other microscopic hematuria (principal); N32.81 Overactive bladder; N20.0 Calculus of kidney; Z87.442 Personal history of urinary calculi; F17.200 Nicotine dependence, unspecified, uncomplicated; R39.9 Unspecified symptoms and signs involving the genitourinary system; Z13.9 Encounter for screening, unspecified
CPT/HCPCS: 99214

== ENCOUNTER 2024-05-20 08:25 | Outpatient (REF) | payer MEDICARE, SELFPAY ==
[2024-05-20 08:56] LABS: MANUAL DIFF FLAG NO
[2024-05-20 09:08] LABS: Basophils Absolute Auto 0.1 X10*3/uL (0.0-0.2); Basophils Percent Auto 1.4 % (0-2); Eosinophils Absolute Auto 0.2 X10*3/uL (0.0-0.4); Eosinophils Percent Auto 4.9 % (0-4); Hemoglobin 13.3 g/dl (12.0-16.0); Imm Gran Abs Auto 0.01 X10*3/uL (0.00-0.03); Imm Gran Pct Auto 0.2 % (0.0-0.4); Lymphocytes Absolute Auto 0.8 X10*3/uL (1.2-4.9); Lymphocytes Percent Auto 17.2 % (20-40); Mean Corpuscular HGB Conc 34.1 g/dl (31.0-35.0); Mean Corpuscular Hemoglobin 35.6 pg (27.0-33.0); Mean Corpuscular Volume 104.3 fL (80.0-98.0); Mean Platelet Volume 9.4 fL (9.4-12.3); Monocytes Absolute Auto 0.5 X10*3/uL (0.1-1.2); Neutrophils Absolute Auto 3.2 x10*3/uL (2.0-8.3); Neutrophils Percent Auto 66.3 % (45-73); Platelet Count 298 X10*3/uL (160-400); Red Blood Count 3.74 X10*6/uL (4.20-5.50); Red Cell Distribution Width 13.5 % (11.0-16.0); White Blood Count 4.9 X10*3/uL (4.8-10.8)
[2024-05-20 09:42] LABS: Albumin Level 4.1 g/dL (3.5-5.0); Aspartate Amino Transferase 29 U/L (5-31); Bilirubin Direct 0.1 mg/dL (0.0-0.5); Bilirubin Total 0.4 mg/dL (0.0-1.0)
[2024-05-20 10:16] LABS: Alanine Aminotransferase 19 U/L (0-31); Alkaline Phosphatase 82 U/L (39-117)
== END 2024-05-20 08:26 | disposition home or self-care (01) ==
LOC: HO.LABR 08:25
PROVIDERS: PCP Internal Medicine; Referring Provider Internal Medicine; Visit Provider Internal Medicine
DX: E53.8 Deficiency of other specified B group vitamins (principal); K50.80 Crohn's disease of both small and large intestine without complications
CPT/HCPCS: 36415; 80076; 85025; 96372; J3420

== ENCOUNTER 2024-05-20 08:25 | Outpatient (AMB) | payer MEDICARE, SELFPAY ==
--- NOTE | 2024-05-20 08:28 | AM.OFFVISNUR ---
Intake Visit Reasons: B12 Shot Allergies Darvon Allergy (Intermediate, Verified 05/02/24 09:43) oral swelling Doxycycline Hyclate Allergy (Intermediate, Verified 05/02/24 09:43) diarrhea, severe diarrhea tetracycline [TETRACYCLINE] Allergy (Intermediate, Verified 05/02/24 09:43) Itching Office Meds cyanocobalamin (vitamin B-12) 1,000 mcg/mL injection solution Performing Provider: Tae Duarte MD [facility] [place] Administered by: Rachana Godfrey RN on 05/20/24 08:34 Dose Route Admin Location Dispensed Lot Number Expiration Date [facility] New Media Strategist 1,000 mcg IM Left deltoid 1 mL [id number] 05/30/25 54124-648-73 [employer] Assessment & Plan Assessment & Plan Orders: Orders AMB Vitamin B12 Injection Patient Supplied Today E53.8 - Deficiency of other specified B group vitamins Medications: New cyanocobalamin (vitamin B-12) 1,000 mcg IM ONCE 1 mL 0RF E53.8 - Deficiency of other specified B group vitamins
== END 2024-05-20 08:36 | disposition home or self-care (01) ==
PROVIDERS: PCP Internal Medicine; Visit Provider Internal Medicine
DX: E53.8 Deficiency of other specified B group vitamins (principal)

== ENCOUNTER 2024-06-08 09:09 | Outpatient (REF) | payer MEDICARE, SELFPAY ==
--- NOTE | ~2024-06-08 | MM_ITS ---
EXAMINATION: MM SCREENING DIGITAL BREAST TOMOSYNTHESIS, BILATERAL CLINICAL INFORMATION: Screening. Asymptomatic. COMPARISON: Mammography: Comparison is made with available priors TECHNIQUE: Digital breast mammography with tomosynthesis is performed in both the craniocaudal and mediolateral oblique views along with computer-aided detection (CAD). FINDINGS: There are scattered areas of fibroglandular density (ACR BI-RADS breast composition Category b). Postsurgical changes in the left breast are stable. There are no significant masses, abnormal calcifications, or other abnormalities. MM/MM tomosynthesis screening BI IMPRESSION: No mammographic evidence of malignancy. ASSESSMENT: BI-RADS BI-RADS 2 - Benign Findings RECOMMENDATION: Routine annual mammography screening. 1 year F/U This examination should not preclude the clinical evaluation of a suspicious palpable abnormality. This patient's information was entered into a reminder system with a target due date for their next mammogram. Electronically signed by: Camryn Hogue DO 06/14/2024 04:36 PM [facility]
== END 2024-06-08 09:10 | disposition home or self-care (01) ==
LOC: HO.MAMMO 09:09
PROVIDERS: PCP Internal Medicine; Visit Provider Internal Medicine
DX: Z12.31 Encounter for screening mammogram for malignant neoplasm of breast (principal)
CPT/HCPCS: 77063; 77067

== ENCOUNTER → 2024-06-08 09:30 | Outpatient (BNV) | payer MEDICARE, SELFPAY | PROVIDERS: PCP Internal Medicine; Visit Provider Internal Medicine | DX: Z12.31 Encounter for screening mammogram for malignant neoplasm of breast (principal) | CPT/HCPCS: 77063; 77067 ==

== ENCOUNTER 2024-06-21 08:18 | Outpatient (AMB) | payer MEDICARE, SELFPAY ==
--- NOTE | 2024-06-21 08:38 | AM.OFFVISNUR ---
Intake Visit Reasons: b12 Allergies Darvon Allergy (Intermediate, Verified 05/02/24 09:43) oral swelling Doxycycline Hyclate Allergy (Intermediate, Verified 05/02/24 09:43) diarrhea, severe diarrhea tetracycline [TETRACYCLINE] Allergy (Intermediate, Verified 05/02/24 09:43) Itching Office Meds cyanocobalamin (vitamin B-12) 1,000 mcg/mL injection solution Performing Provider: Tae Duarte MD Per[facility] [place] [facility] Administered by: Elvi Almonte LPN on 06/21/24 08:38 Dose Route Admin Location Dispensed Lot Number Expiration Date [facility] Canoe Inspector 1,000 mcg IM left deltoid 1 mL [id number] 05/31/25 39448-447-63 TM Assessment & Plan Assessment & Plan Orders: Orders AMB Vitamin B12 Injection Patient Supplied Today E53.8 - Deficiency of other specified B group vitamins Medications: New cyanocobalamin (vitamin B-12) 1,000 mcg IM ONCE 1 mL 0RF E53.8 - Deficiency of other specified B group vitamins
== END 2024-06-21 08:57 | disposition home or self-care (01) ==
PROVIDERS: PCP Internal Medicine; Visit Provider Internal Medicine
DX: E53.8 Deficiency of other specified B group vitamins (principal)

== ENCOUNTER 2024-06-21 08:45 | Outpatient (REF) | payer MEDICARE, SELFPAY ==
[2024-06-21 08:52] LABS: MANUAL DIFF FLAG NO
[2024-06-21 09:12] LABS: Basophils Absolute Auto 0.1 X10*3/uL (0.0-0.2); Basophils Percent Auto 1.4 % (0-2); Eosinophils Absolute Auto 0.3 X10*3/uL (0.0-0.4); Hematocrit 40.3 % (37.0-47.0); Hemoglobin 13.5 g/dl (12.0-16.0); Imm Gran Abs Auto 0.01 X10*3/uL (0.00-0.03); Imm Gran Pct Auto 0.2 % (0.0-0.4); Lymphocytes Absolute Auto 0.8 X10*3/uL (1.2-4.9); Lymphocytes Percent Auto 18.8 % (20-40); Mean Corpuscular HGB Conc 33.5 g/dl (31.0-35.0); Mean Corpuscular Hemoglobin 35.1 pg (27.0-33.0); Mean Corpuscular Volume 104.7 fL (80.0-98.0); Mean Platelet Volume 9.9 fL (9.4-12.3); Monocytes Absolute Auto 0.5 X10*3/uL (0.1-1.2); Monocytes Percent Auto 12.1 % (2-11); Neutrophils Absolute Auto 2.6 x10*3/uL (2.0-8.3); Neutrophils Percent Auto 61.5 % (45-73); Platelet Count 272 X10*3/uL (160-400); Red Blood Count 3.85 X10*6/uL (4.20-5.50); Red Cell Distribution Width 13.8 % (11.0-16.0); White Blood Count 4.2 X10*3/uL (4.8-10.8)
[2024-06-21 09:53] LABS: Alanine Aminotransferase 24 U/L (0-31); Albumin Level 4.2 g/dL (3.5-5.0); Alkaline Phosphatase 87 U/L (39-117); Aspartate Amino Transferase 24 U/L (5-31); Bilirubin Direct 0.1 mg/dL (0.0-0.5); Bilirubin Total 0.4 mg/dL (0.0-1.0); Total Protein 7.3 g/dL (6.5-8.0)
== END 2024-06-21 08:46 | disposition home or self-care (01) ==
LOC: HO.LABR 08:45
PROVIDERS: PCP Internal Medicine; Visit Provider Internal Medicine
DX: K50.80 Crohn's disease of both small and large intestine without complications (principal)
CPT/HCPCS: 36415; 80076; 85025; 96372; J3420

== ENCOUNTER → 2024-07-08 10:02 | Outpatient (AMB) | payer MEDICARE, SELFPAY | END | disposition home or self-care (01) | PROVIDERS: PCP Internal Medicine; Visit Provider Internal Medicine ==

== ENCOUNTER → 2024-07-08 10:02 | Outpatient (BNVA) | payer MEDICARE, SELFPAY | PROVIDERS: PCP Internal Medicine; Visit Provider Internal Medicine | DX: M81.0 Age-related osteoporosis without current pathological fracture (principal); K50.10 Crohn's disease of large intestine without complications; J45.20 Mild intermittent asthma, uncomplicated; K21.9 Gastro-esophageal reflux disease without esophagitis; R73.02 Impaired glucose tolerance (oral); F41.1 Generalized anxiety disorder; F17.210 Nicotine dependence, cigarettes, uncomplicated; Z71.6 Tobacco abuse counseling | CPT/HCPCS: 99212 ==

== ENCOUNTER 2024-07-22 08:18 | Outpatient (AMB) | payer MEDICARE, SELFPAY ==
--- OUTSIDE RECORDS SUMMARY | 2024-07-22 08:24 | XMS_ITS ---
Author Organization [facility] Address [address] [place] [address] Care Team Providers Care Community Association Manager Name Role Phone Tae Duarte MD Primary Care Provider Neymar Sanders [phone] ALLERGIES Allergen (clinical drug ingredient) Drug/Non Drug Allergy documented on EMR Reaction Allergy Type Onset Date Status tetracycline Tetracycline HCl Unknown Drug Allergy Active Darvon Unknown Drug Allergy Active REASON FOR VISIT Patient presents today for gerd, hiatal hernia MEDICATIONS Medication SIG (Take, Route, Frequency, Duration) Notes Start Date End Date Status Cyanocobalamin 1000 MCG/ML INJECT 1ML EV ALEJANDRO 4 WEEKS Injection for 84 Active Gemtesa 75 MG Oral for 30 Acti ve Dicyclomine HCl 10 MG TAKE 1 TO 2 CAPSUL ES BY MOUTH 4 TIMES A DAY NEEDED FOR ABDOMINAL CRAMPS OR DISCOMFORT Active Vitamin B-6 100 MG 1 tablet Orally Once a day for 30 day(s) Active busPIRone HCl 10 MG 1 tablet Orally once a day Active azaTHIOprine 50 MG TAKE 2 TABLETS BY MO [facility] EVERY DAY Active Raloxifene HCl Unkno wn Pentasa 500 MG 2 capsules Orally Fo ur times a day 09/28/2012 Active Omeprazole 20 MG take 1 capsule by mo ut once daily Orally Once a day Active Cholestyramine 4 GM/DOSE use anywhere fr om 1/4 to 1 scoop Orally Once or twice a day a needed for diarrhea 09/17/2023 Active traMADol HCl 50mg 1 tablet as needed Orally every 8 hours prn Active Dicyclomine HCl 10 MG TAKE 1 TO 2 CAPSUL ES BY MOUTH 4 TIMES A DAY NEEDED FOR ABDOMINAL CRAMPS OR DISCOMFORT FOR 90 DAYS for 90 Active Pentasa 500 MG TAKE 2 CAPSULES BY M OUTH 4 TIMES A DAY 90 DAYS for 90 Active SOCIAL HISTORY Tobacco Use: Social History Observation Description Date Details (start date - stop date) Current Smoker NA - NA Sex Assigned At : Social History Observation Description Sex Assigned At Unknown Tobacco Use/Smoking Question Answer Notes Patient is a current smoker How often do you smoke cigarettes? every day How many cigarettes a day do you smoke? 11-20 How soon after you wake up do you smoke your fir st cigarette? 6-30 minutes Are you interested in quitting? Not ready to yamileth t VITAL SIGNS BMI 20.13 kg/m2 03/22/2024 Blood pressure systolic 124 mm Hg 03/22/20 24 Blood pressure diastolic 76 mm Hg 024 Height 65 in 03/22/2024 Weight 121 lbs 03/22/2024 Encounters Encounter Location Date Provider Diagnosis [facility] [address] [facility] [address] [place] [id number] 03/22/2024 Neymar Sauer GERD (gastroesophage al reflux disease) K21.9 ; Crohn's disease of both small and large intestine without complications K50.80 and Bile salt-induced diarrhea K90.89 ASSESSMENTS Encounter Date Diagnosis Assessment Notes Treatment Notes Treatment Clinical Notes 03/22/2024 GERD (gastroesophageal reflux disease) (ICD-10 - K21.9) 03/22/2024 Crohn's disease of both small and large intestine without complications (ICD-10 - K50.80) 03/22/2024 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) PLAN OF TREATMENT Medication Medication Name Sig Start Date Stop Date Notes Dicyclomine HCl 10 MG TAKE 1 TO 2 CAPSUL ES BY MOUTH 4 TIMES A DAY NEEDED FOR ABDOMINAL CRAMPS OR DISCOMFORT azaTHIOprine 50 MG TAKE 2 TABLETS BY MOUTH EVERY DAY Pentasa 500 MG 2 capsules Orally Fo ur times a day 09/28/2012 Omeprazole 20 MG take 1 capsule by mo [facility] once daily Orally Once a day Cholestyramine 4 GM/DOSE use anywhere fr om 1/4 to 1 scoop Orally Once or twice a day a needed for diarrhea 09/17/2023 Next Appt Details Follow Up: 6 Months, Reason: Provider Name:Neymar Sauer , 09/27/2024 10:50:00 AM, [address], [address], [place], [address], Progress Notes * Examination Category Sub-Category Detail Notes General Examination GENERAL APPEARANCE: pleasant , well nourished, well developed, in no acute distress EYES: sclera non-icteric NECK/THYROID: no cervical lymphade nopathy, neck supple HEART: S1, S2 normal LUNGS: clear to auscultatio n bilaterally ABDOMEN: normal bowel sounds, no guarding or rigidity, no hepatosplenomegaly, no masses palpable, soft, nontender, nondistended. NEUROLOGIC: alert and oriented SKIN: nonjaundiced, no spi torito angiomata. EXTREMITIES: no edema ORAL CAVITY: mucosa moist
--- OUTSIDE RECORDS SUMMARY | 2024-07-22 08:25 | XMS_ITS ---
Author Organization [facility] Address [address] [place] [address] Care Team Providers Care Kiln Operator Name Role Phone Po Tae FERRER Primary Care Provider Neymar Sanders [phone] REASON FOR VISIT need new lab order faxed Encounters Encounter Location Date Provider Diagnosis [facility] [address] [place] [address] 02/22/2024 Neymar Sauer Crohn''s disease of both small and large intestine without complication K50.80 ASSESSMENTS Encounter Date Diagnosis Assessment Notes Treatment Notes Treatment Clinical Notes 02/22/2024 Crohn''s disease of both small and large intestine without complication (ICD-10 - K50.80) PLAN OF TREATMENT Pending Test Test Name Order Date LIVER PROFILE 02/22/2024 CBC w DIFF 02/22/2024 Next Appt Details Provider Name:Neymar Sauer , 09/27/2024 10:50:00 AM, [address] [facility], [address], [place], [address],
--- OUTSIDE RECORDS SUMMARY | 2024-07-22 08:26 | XMS_ITS ---
Author Organization [facility] Address [address] [place] [address] Care Team Providers Care Photocopier Technician Name Role Phone Po Tae FERRER Primary Care Provider Neymar Sanders [phone] REASON FOR VISIT called pharmacy Encounters Encounter Location Date Provider Diagnosis [facility] [address] [place] [address] [address] [place] [address] 12/21/2023 Neymar Sauer PLAN OF TREATMENT Next Appt Details Provider Name:Neymar Sauer , 09/27/2024 10:50:00 AM, [address] [facility] [address], [address], [place], [address],
--- NOTE | 2024-07-22 08:39 | AM.OFFVISNUR ---
Intake Visit Reasons: B12 Shot Allergies Darvon Allergy (Intermediate, Verified 07/08/24 10:29) oral swelling Doxycycline Hyclate Allergy (Intermediate, Verified 07/08/24 10:29) diarrhea, severe diarrhea tetracycline [TETRACYCLINE] Allergy (Intermediate, Verified 07/08/24 10:29) Itching Office Meds cyanocobalamin (vitamin B-12) 1,000 mcg/mL injection solution Performing Provider: Tae Duarte MD Per[facility] [place] [facility] Administered by: Elvi Almonte LPN on 07/22/24 08:40 Dose Route Admin Location Dispensed Lot Number Expiration Date [facility] [place] [employer] 1,000 mcg IM left deltoid 1 mL [id number] 05/30/25 47471-903-12 [place] Assessment & Plan Assessment & Plan Orders: Orders AMB Vitamin B12 Injection Patient Supplied Today E53.8 - Deficiency of other specified B group vitamins Medications: New cyanocobalamin (vitamin B-12) 1,000 mcg IM ONCE 1 mL 0RF E53.8 - Deficiency of other specified B group vitamins Coding
== END 2024-07-22 08:48 | disposition home or self-care (01) ==
PROVIDERS: PCP Internal Medicine; Visit Provider Internal Medicine
DX: E53.8 Deficiency of other specified B group vitamins (principal)

== ENCOUNTER 2024-07-22 08:52 | Outpatient (REF) | payer MEDICARE, SELFPAY ==
--- NOTE | ~2024-07-22 | CT_ITS ---
CLINICAL HISTORY: F17.210 - Nicotine dependence, cigarettes, uncomplicated CT lung cancer screening (LDCT) Comparison: 07/03/2023 Technique: Axial CT images of the chest using low-dose technique. Referring provider counseled the patient on shared decision-making for LDCT screening. Additional counseling was provided on smoking cessation. Effective radiation dose total: DLP 24.5 mGycm, CTDIvol 0.8 mGy. Findings: Smoking-related lung changes. No significant change in a few scattered less than 3 mm bilateral lung nodules. A few calcified right lower lobe calcified granulomas. No significant change in mild increased reticular lung markings affecting portions of the subpleural aspects of the lungs. Coronary artery calcifications: Mild Wukjl-vj-gywmjhjp sized uncomplicated fat containing left Bochdalek's hernia not significantly changed from prior study. Spinal degenerative changes. Impression: LungRADS 2 - Benign Appearance: Continue annual screening with low dose Chest CT in 12 months. ##L2# Category 1: Normal; continue annual screening Category 2: Benign appearance or behavior, continue annual screening Category 3: Probably benign, [address] recommended Category 4A: Suspicious, [address] recommended; may consider PET/CT Category 4B: Suspicious, Additional diagnostics and/or tissue sampling recommended Category 4X: Suspicious, Additional diagnostics and/or tissue sampling recommended Category 0: Recalls (incomplete screen due to Incomplete coverage, Noise, Respiratory motion, Expiration, Obscured by acute abnormality) This document has been electronically signed by: Michelle Mcdonough MD on 07/22/2024 10:10:22
--- OUTSIDE RECORDS SUMMARY | 2024-07-22 09:13 | XMS_ITS | Patient Health Record ---
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 Name Role Phone Po Tae FERRER Primary Care Provider Neymar Sanders [phone] ALLERGIES Allergen (clinical drug ingredient) Drug/Non Drug Allergy documented on EMR Reaction Allergy Type Onset Date Status tetracycline Tetracycline HCl Unknown Drug Allergy Active Darvon Unknown Drug Allergy Active RESULTS Component Value Reference Range Notes Complete Blood Count Auto Di ff Reviewed date:07/30/2023 01:10:54 PM Interpretation: Performing Lab:[facility], [address] [place] [phone] Notes/Report: White Blood Count 6.5 4.8-10.8 X10*3/uL Red Blood Count 3.82 4.20-5.50 X10*6/uL Hemoglobin 13.3 12.0-16.0 g/dl Hematocrit 39.1 37.0-47.0 % Mean Corpuscular Volume 102.4 80.0-98.0 fL Mean Corpuscular Hemoglobin 34.8 27.0-33.0 pg Mean Corpuscular HGB Conc 34.0 31.0-35.0 g/dl Red Cell Distribution Width 13.2 11.0-16.0 % Platelet Count 243 160-400 X10*3/uL Mean Platelet Volume 10.1 9.4-12.3 fL Neutrophils Percent Auto 73.6 45-73 % Imm Gran Pct Auto 0.5 0.0-0.4 % Lymphocytes Percent Auto 11.8 20-40 % Monocytes Percent Auto 8.9 2-11 % Eosinophils Percent Auto 3.8 0-4 % Basophils Percent Auto 1.4 0-2 % NRBC Pct Auto 0.0 0.0-0.2 /100WBC Neutrophils Absolute Auto 4.8 2.0-8.3 x10*3/u L Imm Gran Abs Auto 0.03 0.00-0.03 X10*3/uL Lymphocytes Absolute Auto 0.8 1.2-4.9 X10*3/u L Monocytes Absolute Auto 0.6 0.1-1.2 X10*3/uL Eosinophils Absolute Auto 0.3 0.0-0.4 X10*3/u L Basophils Absolute Auto 0.1 0.0-0.2 X10*3/uL NRBC Abs Auto 0.000 0.0-0.012 X10*3/uL Liver Panel Reviewed date:07/30/2023 01:11:06 PM Interpretation: Performing Lab:[address] [phone] Notes/Report: Bilirubin Total 0.4 0.0-1.0 mg/dL Bilirubin Direct 0.1 0.0-0.5 mg/dL Aspartate Amino Transferase 20 5-31 U/L Alanine Aminotransferase 15 0-31 U/L Total Protein 6.9 6.5-8.0 g/dL Albumin Level 4.1 3.5-5.0 g/dL Alkaline Phosphatase 90 39-117 U/L Complete Blood Count Auto Di ff Reviewed date:08/28/2023 12:51:35 PM Interpretation: Performing Lab:[address] [phone] Notes/Report: White Blood Count 6.4 4.8-10.8 X10*3/uL Red Blood Count 3.93 4.20-5.50 X10*6/uL Hemoglobin 13.5 12.0-16.0 g/dl Hematocrit 39.9 37.0-47.0 % Mean Corpuscular Volume 101.5 80.0-98.0 fL Mean Corpuscular Hemoglobin 34.4 27.0-33.0 pg Mean Corpuscular HGB Conc 33.8 31.0-35.0 g/dl Red Cell Distribution Width 13.2 11.0-16.0 % Platelet Count 345 160-400 X10*3/uL Mean Platelet Volume 9.2 9.4-12.3 fL Neutrophils Percent Auto 69.5 45-73 % Imm Gran Pct Auto 0.5 0.0-0.4 % Lymphocytes Percent Auto 14.6 20-40 % Monocytes Percent Auto 10.0 2-11 % Eosinophils Percent Auto 4.0 0-4 % Basophils Percent Auto 1.4 0-2 % NRBC Pct Auto 0.0 0.0-0.2 /100WBC Neutrophils Absolute Auto 4.5 2.0-8.3 x10*3/u L Imm Gran Abs Auto 0.03 0.00-0.03 X10*3/uL Lymphocytes Absolute Auto 0.9 1.2-4.9 X10*3/u L Monocytes Absolute Auto 0.6 0.1-1.2 X10*3/uL Eosinophils Absolute Auto 0.3 0.0-0.4 X10*3/u L Basophils Absolute Auto 0.1 0.0-0.2 X10*3/uL NRBC Abs Auto 0.000 0.0-0.012 X10*3/uL Liver Panel Reviewed date:08/28/2023 07:02:46 PM Interpretation: Performing Lab:[address] [phone] Notes/Report: Bilirubin Total 0.3 0.0-1.0 mg/dL Bilirubin Direct 0.1 0.0-0.5 mg/dL Aspartate Amino Transferase 18 5-31 U/L Alanine Aminotransferase 14 0-31 U/L Total Protein 7.1 6.5-8.0 g/dL Albumin Level 3.9 3.5-5.0 g/dL Alkaline Phosphatase 103 39-117 U/L Complete Blood Count Auto Di ff Reviewed date:09/24/2023 06:59:11 PM Interpretation: Performing Lab:[address] [phone] Notes/Report: White Blood Count 5.6 4.8-10.8 X10*3/uL Red Blood Count 3.98 4.20-5.50 X10*6/uL Hemoglobin 13.6 12.0-16.0 g/dl Hematocrit 40.7 37.0-47.0 % Mean Corpuscular Volume 102.3 80.0-98.0 fL Mean Corpuscular Hemoglobin 34.2 27.0-33.0 pg Mean Corpuscular HGB Conc 33.4 31.0-35.0 g/dl Red Cell Distribution Width 14.4 11.0-16.0 % Platelet Count 305 160-400 X10*3/uL Mean Platelet Volume 9.5 9.4-12.3 fL Neutrophils Percent Auto 71.3 45-73 % Imm Gran Pct Auto 0.5 0.0-0.4 % Lymphocytes Percent Auto 13.7 20-40 % Monocytes Percent Auto 10.6 2-11 % Eosinophils Percent Auto 2.5 0-4 % Basophils Percent Auto 1.4 0-2 % NRBC Pct Auto 0.0 0.0-0.2 /100WBC Neutrophils Absolute Auto 4.0 2.0-8.3 x10*3/u L Imm Gran Abs Auto 0.03 0.00-0.03 X10*3/uL Lymphocytes Absolute Auto 0.8 1.2-4.9 X10*3/u L Monocytes Absolute Auto 0.6 0.1-1.2 X10*3/uL Eosinophils Absolute Auto 0.1 0.0-0.4 X10*3/u L Basophils Absolute Auto 0.1 0.0-0.2 X10*3/uL NRBC Abs Auto 0.000 0.0-0.012 X10*3/uL Liver Panel Reviewed date:09/24/2023 06:57:37 PM Interpretation: Performing Lab:[address] [phone] Notes/Report: Bilirubin Total 0.4 0.0-1.0 mg/dL Bilirubin Direct 0.2 0.0-0.5 mg/dL Aspartate Amino Transferase 19 5-31 U/L Alanine Aminotransferase 16 0-31 U/L Total Protein 7.4 6.5-8.0 g/dL Albumin Level 4.1 3.5-5.0 g/dL Alkaline Phosphatase 112 39-117 U/L Leukocytes Stool Qualitative Reviewed date:10/08/2023 12:22:24 PM Interpretation: Performing Lab:[address] [phone] Notes/Report: Leukocytes Stool Qualitative NEGATIVE NEGATIVE Calprotectin, Fecal Reviewed date:10/23/2023 06:04:34 PM Interpretation: Performing Lab:[facility], [address] [place] [phone] Notes/Report: Calprotectin, Fecal 14 Reference Range: <50 Normal 50-120 Borderline >120 Elevated Calprotectin in Crohn's disease and ulcerative colitis can be five to several thousand times above the reference population (50 mcg/g or less). Levels are usually 50 mcg/g or less in healthy patients and with irritable bowel syndrome. Repeat testing in 4-6 weeks is suggested for borderline values. THIS TEST WAS PERFORMED AT: [employer]/[facility] [address] [place] [address] VICTORIANO PATEL MD,PHD,[facility] CDiff Gene PCR Reviewed date:10/14/2023 11:18:35 PM Interpretation: Performing Lab:[facility], [address] [place] [phone] Notes/Report: CDiff Gene PCR NEGATIVE Negative If C. difficile strongly suspected despite one negative test, a second test may be sent vs. empiric treatment for C. difficile infection. GI PANEL Reviewed date:10/10/2023 01:57:53 PM Interpretation: Performing Lab:[address] [phone] Notes/Report: Campylobacter Not Detected Not Detect. Plesiomonas shigelloides Not Detected Not Detect. Salmonella Not Detected Not Detect. Vibrio Not Detected Not Detect. Vibrio Cholerae Not Detected Not Detect. Yersinia enterocolitica Not Detected Not Detect. E. coli EAEC Not Detected Not Detect. E. coli EPEC Not Detected Not Detect. E. coli ETEC Not Detected Not Detect. E. coli STEC Not Detected Not Detect. E. coli O157 Not applicable Not Detect. E. coli containing the O157 antigen are a subset of Shiga-like toxin-producing E. coli (STEC). Shigella sp./EIEC Not Detected Not Detect. Cryptosporidium Not Detected Not Detect. Cyclospora cayetanensis Not Detected Not Detect. Entamoeba histolytica Not Detected Not Detect. Giardia lamblia Not Detected Not Detect. Adenovirus F 40/41 Not Detected Not Detect. Astrovirus Not Detected Not Detect. Norovirus GI/GII Not Detected Not Detect. Rotavirus A Not Detected Not Detect. Sapovirus Not Detected Not Detect. All results must be correlated with clinical findings. Negative results do not exclude the possibility of gastrointestinal infection and should not be used as the sole basis for diagnosis, treatment, or other management decisions. Virus, bacteria, and parasite nucleic acid may persist in vivo independently of organism viability. Additionally, some organisms may be carried symptomatically. Detection of organism targets does not imply that the corresponding organisms are infectious or are the causative agents for clinical symptoms. There is a risk of false negative values due to the presence of sequence variants in the gene targets of the assay, amplification inhibitors in specimens, or inadequate numbers of organisms for amplification. The identification of several diarrheagenic E. coli pathotypes has historically relied upon phenotypic characteristics. This panel targets genetic determinants characteristic of most pathogenic strains, but may not detect all strains having phenotypic characteristics of a pathotype. The performance of this test has not been established for monitoring treatment of infection with any of the panel organisms. This assay is performed by Multiplexed PCR, utilizing the [employer] Array. Complete Blood Count Auto Di ff Reviewed date:10/23/2023 06:03:13 PM Interpretation: Performing Lab:[facility], [address] [place] [phone] Notes/Report: White Blood Count 4.5 4.8-10.8 X10*3/uL Red Blood Count 3.78 4.20-5.50 X10*6/uL Hemoglobin 13.0 12.0-16.0 g/dl Hematocrit 39.0 37.0-47.0 % Mean Corpuscular Volume 103.2 80.0-98.0 fL Mean Corpuscular Hemoglobin 34.4 27.0-33.0 pg Mean Corpuscular HGB Conc 33.3 31.0-35.0 g/dl Red Cell Distribution Width 14.6 11.0-16.0 % Platelet Count 300 160-400 X10*3/uL Mean Platelet Volume 9.8 9.4-12.3 fL Neutrophils Percent Auto 66.3 45-73 % Imm Gran Pct Auto 0.2 0.0-0.4 % Lymphocytes Percent Auto 18.1 20-40 % Monocytes Percent Auto 9.5 2-11 % Eosinophils Percent Auto 4.6 0-4 % Basophils Percent Auto 1.3 0-2 % NRBC Pct Auto 0.0 0.0-0.2 /100WBC Neutrophils Absolute Auto 3.0 2.0-8.3 x10*3/u L Imm Gran Abs Auto 0.01 0.00-0.03 X10*3/uL Lymphocytes Absolute Auto 0.8 1.2-4.9 X10*3/u L Monocytes Absolute Auto 0.4 0.1-1.2 X10*3/uL Eosinophils Absolute Auto 0.2 0.0-0.4 X10*3/u L Basophils Absolute Auto 0.1 0.0-0.2 X10*3/uL NRBC Abs Auto 0.000 0.0-0.012 X10*3/uL Comprehensive Met. Panel Reviewed date:10/23/2023 06:01:42 PM Interpretation: Performing Lab:[address] [phone] Notes/Report: Sodium 145 135-145 mmol/L Potassium 3.9 3.3-5.1 mmol/L Chloride 110 96-108 mmol/L Carbon Dioxide 28 22-29 mmol/L Anion Gap 11 12-20 Blood Urea Nitrogen 7 9-16 mg/dL Creatinine 0.70 0.5-1.4 mg/dL Estimated Glomerular Filt Rate > 60 NOTE: For -Georgian individuals, multiply the result by 1.210. Chronic Kidney Disease: Estimated GFR < 60 mL/min/1.73m2 Severe Kidney Disease: Estimated GFR < 15 mL/min/1.73m2 Glucose Random 98 60-115 mg/dL Calcium 9.6 8.4-10.2 mg/dL Bilirubin Total 0.5 0.0-1.0 mg/dL Aspartate Amino Transferase 23 5-31 U/L Alanine Aminotransferase 18 0-31 U/L Total Protein 6.9 6.5-8.0 g/dL Albumin Level 4.1 3.5-5.0 g/dL Alkaline Phosphatase 92 39-117 U/L Liver Panel Reviewed date:10/23/2023 06:01:25 PM Interpretation: Performing Lab:[address] [phone] Notes/Report: Bilirubin Total 0.5 0.0-1.0 mg/dL Bilirubin Direct 0.2 0.0-0.5 mg/dL Aspartate Amino Transferase 22 5-31 U/L Alanine Aminotransferase 16 0-31 U/L Total Protein 6.8 6.5-8.0 g/dL Albumin Level 4.0 3.5-5.0 g/dL Alkaline Phosphatase 90 39-117 U/L Lipid Panel Reviewed date:10/23/2023 06:03:22 PM Interpretation: Performing Lab:[address] [phone] Notes/Report: Triglycerides 63 <150 mg/dL Desirable Triglyceride: less than 150 mg/dL Borderline High Triglyceride 150-199 mg/dL High Triglyceride: 200-499 mg/dL Very High Triglyceride: greater than or equal to 5OO mg/dL Cholesterol 141 <200 mg/dL Desirable Cholesterol: less than 200 mg/dL Borderline High Cholesterol: 200-239 mg/dL High Cholesterol: greater than 239 mg/dL LDL Cholesterol Calculated 59 <100 mg/dL Desirable LDL: less than 100 mg/dL Near Optimal/Above Optimal LDL: 110-129 mg/dL Borderline High LDL: 130-159 mg/dL High LDL: 160-189 mg/dL Very High LDL: greater than or equal to 190 mg/dL HDL Cholesterol 70 >40 mg/dL Desirable HDL: greater than 40 mg/dL Note: This HDL assay may give artificially low results in patients with liver disease. Vitamin B12 and Folate Reviewed date:10/23/2023 05:59:10 PM Interpretation: Performing Lab:[address] [phone] Notes/Report: Vitamin B12 > 2000 200-900 pg/mL NORMAL 200-900 PG/ML INDETERMINATE 160-199 PG/ML DEFICIENT < 160 PG/ML Folate 10.6 > or = 4.0 ng/mL Reference Values: > or = 4.0 ng/mL < 4.0 ng/mL suggests folate deficiency Methotrexate, aminopterin and folinic acid (leucovorin) are chemotherapeutic agents whose molecular structures are similar to folate; therefore, the [employer] folate assay cannot be used for patients using these drugs. Vitamin D 25-OH Total Reviewed date:10/23/2023 06:04:47 PM Interpretation: Performing Lab:[address] [phone] Notes/Report: Vitamin D 25-OH Total 22.6 >30 ng/mL Health Based Reference Values* < 20 ng/mL Deficient 20-30 ng/mL Insufficient > 30 ng/mL Sufficient *Edmundo JONES. N Engl J Med. 2007;357:266-280 Care must be taken in interpreting Vitamin D results from different laboratories and methodologies. Published data demonstrated that results from patients undergoing hemodialysis may show a negative bias when tested with various automated 25-OH vitamin D assays when compared to LC-MS/MS. When testing samples from patients whose predominant form of Vitamin D is Vitamin D2, such as patients receiving Vitamin D2 supplementation, results that are subtherapeutic should be confirmed with another method such as LC-MS/MS. Free T4 (Free Thyroxine) Reviewed date:10/23/2023 06:07:28 PM Interpretation: Performing Lab:[address] [phone] Notes/Report: Free T4 (Free Thyroxine) 0.84 0.71-1.85 ng/dL Thyroid Stimulating Hormone Reviewed date:10/23/2023 06:07:47 PM Interpretation: Performing Lab:[facility], [address] [place] [phone] Notes/Report: Thyroid Stimulating Hormone 0.95 0.32-4.0 uIU/mL TSH 3rd Generation ([facility]) Hemoglobin A1c Reviewed date:10/23/2023 06:01:06 PM Interpretation: Performing Lab:[address] [phone] Notes/Report: Hemoglobin A1c % 5.9 <6.0 % Hemoglobin A1C Reference Range Adults: 4.8 - 6.0 % Non diabetic: < 6.0 % Goal: < 7.0 % Additional Action Suggested: > 8.0 % Note: Hemoglobin A1c results are invalid for patients with abnormal amounts of HbF. Blood transfusions may impact the HbA1c concentration in the patient sample. Estimated Average Glucose 123 eAG = Estimated average glucose which is %A1C expressed as average glucose, using the formula of the [id number] Average Glucose study (ADAG), Diabetes Care, Vol.31,#8, 2007 UA ClnCatch+Micro w/rflx Cul t Reviewed date:10/26/2023 07:12:04 PM Interpretation: Performing Lab:[facility], [address] [place] [phone] Notes/Report: Urine, Clean Catch Color Urine Yellow Appearance Urine Clear PH 5.5 5.0-9.0 Glucose Urine UA Negative Negative mg/dL Urine Blood Moderate (2+) Negative Specific Delta - Urine <= 1.005 1.005-1.025 Urine Protein Negative Neg-Trace mg/dL Urine Ketones Negative Negative mg/dL Nitrite Urine Negative Negative Leukocyte Esterase Urine Trace Negative RBC Urine 0-2 0-2 /HPF WBC Urine 0-5 0-5 /HPF Squamous Epithelial Cell Urine 0-2 0-2 /HPF Bacteria Urine None Seen None Seen Hyaline Casts Urine 0-2 0-2 /LPF Glucose, Whole Blood Reviewed date:10/28/2023 05:51:13 PM Interpretation: Performing Lab:[facility], [address] [place] [phone] Notes/Report: Glucose, Whole Blood 77 60-115 mg/dL METER # : [id number] Pathology Reviewed date:11/07/2023 10:08:08 PM Interpretation: Performing Lab:[facility], [address] [place] [phone] Notes/Report: Glucose, Whole Blood Reviewed date:10/28/2023 05:51:06 PM Interpretation: Performing Lab:[facility], [address] [place] [phone] Notes/Report: Glucose, Whole Blood 112 60-115 mg/dL METER # : [id number] Complete Blood Count Auto Di ff Reviewed date:11/23/2023 10:23:49 PM Interpretation: Performing Lab:[facility], [address] [place] [phone] Notes/Report: White Blood Count 4.8 4.8-10.8 X10*3/uL Red Blood Count 3.80 4.20-5.50 X10*6/uL Hemoglobin 13.1 12.0-16.0 g/dl Hematocrit 39.1 37.0-47.0 % Mean Corpuscular Volume 102.9 80.0-98.0 fL Mean Corpuscular Hemoglobin 34.5 27.0-33.0 pg Mean Corpuscular HGB Conc 33.5 31.0-35.0 g/dl Red Cell Distribution Width 14.1 11.0-16.0 % Platelet Count 238 160-400 X10*3/uL Mean Platelet Volume 9.8 9.4-12.3 fL Neutrophils Percent Auto 69.0 45-73 % Imm Gran Pct Auto 0.2 0.0-0.4 % Lymphocytes Percent Auto 15.2 20-40 % Monocytes Percent Auto 8.8 2-11 % Eosinophils Percent Auto 5.3 0-4 % Basophils Percent Auto 1.5 0-2 % NRBC Pct Auto 0.0 0.0-0.2 /100WBC Neutrophils Absolute Auto 3.3 2.0-8.3 x10*3/u L Imm Gran Abs Auto 0.01 0.00-0.03 X10*3/uL Lymphocytes Absolute Auto 0.7 1.2-4.9 X10*3/u L Monocytes Absolute Auto 0.4 0.1-1.2 X10*3/uL Eosinophils Absolute Auto 0.3 0.0-0.4 X10*3/u L Basophils Absolute Auto 0.1 0.0-0.2 X10*3/uL NRBC Abs Auto 0.000 0.0-0.012 X10*3/uL Liver Panel Reviewed date:11/23/2023 10:24:01 PM Interpretation: Performing Lab:[address] [phone] Notes/Report: Bilirubin Total 0.5 0.0-1.0 mg/dL Bilirubin Direct 0.2 0.0-0.5 mg/dL Aspartate Amino Transferase 24 5-31 U/L Alanine Aminotransferase 15 0-31 U/L Total Protein 6.8 6.5-8.0 g/dL Albumin Level 4.0 3.5-5.0 g/dL Alkaline Phosphatase 93 39-117 U/L Complete Blood Count Auto Di ff Reviewed date:12/28/2023 07:00:26 PM Interpretation: Performing Lab:[address] [phone] Notes/Report: White Blood Count 5.2 4.8-10.8 X10*3/uL Red Blood Count 3.86 4.20-5.50 X10*6/uL Hemoglobin 13.1 12.0-16.0 g/dl Hematocrit 39.0 37.0-47.0 % Mean Corpuscular Volume 101.0 80.0-98.0 fL Mean Corpuscular Hemoglobin 33.9 27.0-33.0 pg Mean Corpuscular HGB Conc 33.6 31.0-35.0 g/dl Red Cell Distribution Width 13.6 11.0-16.0 % Platelet Count 306 160-400 X10*3/uL Mean Platelet Volume 10.2 9.4-12.3 fL Neutrophils Percent Auto 70.0 45-73 % Imm Gran Pct Auto 0.4 0.0-0.4 % Lymphocytes Percent Auto 12.5 20-40 % Monocytes Percent Auto 10.3 2-11 % Eosinophils Percent Auto 5.7 0-4 % Basophils Percent Auto 1.1 0-2 % NRBC Pct Auto 0.0 0.0-0.2 /100WBC Neutrophils Absolute Auto 3.7 2.0-8.3 x10*3/u L Imm Gran Abs Auto 0.02 0.00-0.03 X10*3/uL Lymphocytes Absolute Auto 0.7 1.2-4.9 X10*3/u L Monocytes Absolute Auto 0.5 0.1-1.2 X10*3/uL Eosinophils Absolute Auto 0.3 0.0-0.4 X10*3/u L Basophils Absolute Auto 0.1 0.0-0.2 X10*3/uL NRBC Abs Auto 0.000 0.0-0.012 X10*3/uL Liver Panel Reviewed date:12/25/2023 07:24:09 PM Interpretation: Performing Lab:[facility], [address] [place] [phone] Notes/Report: Bilirubin Total 0.3 0.0-1.0 mg/dL Bilirubin Direct 0.1 0.0-0.5 mg/dL Aspartate Amino Transferase 19 5-31 U/L Alanine Aminotransferase 11 0-31 U/L Total Protein 6.9 6.5-8.0 g/dL Albumin Level 4.1 3.5-5.0 g/dL Alkaline Phosphatase 86 39-117 U/L Vitamin B12 Reviewed date:12/25/2023 07:24:18 PM Interpretation: Performing Lab:[facility], [address] [place] [phone] Notes/Report: Vitamin B12 432 200-900 pg/mL NORMAL 200-900 PG/ML INDETERMINATE 160-199 PG/ML DEFICIENT < 160 PG/ML Liver Panel Reviewed date:01/23/2024 10:45:45 PM Interpretation: Performing Lab:[facility], [address] [place] [phone] Notes/Report: Bilirubin Total 0.5 0.0-1.0 mg/dL Bilirubin Direct 0.2 0.0-0.5 mg/dL Aspartate Amino Transferase 23 5-31 U/L Alanine Aminotransferase 15 0-31 U/L Total Protein 6.6 6.5-8.0 g/dL Albumin Level 4.0 3.5-5.0 g/dL Alkaline Phosphatase 83 39-117 U/L Liver Panel Reviewed date:02/22/2024 11:20:19 PM Interpretation: Performing Lab:[facility], [address] [place] [phone] Notes/Report: Bilirubin Total 0.5 0.0-1.0 mg/dL Bilirubin Direct 0.2 0.0-0.5 mg/dL Aspartate Amino Transferase 22 5-31 U/L Alanine Aminotransferase 16 0-31 U/L Total Protein 6.7 6.5-8.0 g/dL Albumin Level 4.0 3.5-5.0 g/dL Alkaline Phosphatase 86 39-117 U/L Complete Blood Count Auto Di ff Reviewed date:03/23/2024 06:59:11 PM Interpretation: Performing Lab:[facility], [address] [place] [phone] Notes/Report: White Blood Count 3.6 4.8-10.8 X10*3/uL Red Blood Count 3.63 4.20-5.50 X10*6/uL Hemoglobin 12.8 12.0-16.0 g/dl Hematocrit 37.9 37.0-47.0 % Mean Corpuscular Volume 104.4 80.0-98.0 fL Mean Corpuscular Hemoglobin 35.3 27.0-33.0 pg Mean Corpuscular HGB Conc 33.8 31.0-35.0 g/dl Red Cell Distribution Width 15.2 11.0-16.0 % Platelet Count 327 160-400 X10*3/uL Mean Platelet Volume 10.0 9.4-12.3 fL Neutrophils Percent Auto 52.3 45-73 % Imm Gran Pct Auto 0.3 0.0-0.4 % Lymphocytes Percent Auto 22.2 20-40 % Monocytes Percent Auto 13.9 2-11 % Eosinophils Percent Auto 9.1 0-4 % Basophils Percent Auto 2.2 0-2 % NRBC Pct Auto 0.0 0.0-0.2 /100WBC Neutrophils Absolute Auto 1.9 2.0-8.3 x10*3/u L Imm Gran Abs Auto 0.01 0.00-0.03 X10*3/uL Lymphocytes Absolute Auto 0.8 1.2-4.9 X10*3/u L Monocytes Absolute Auto 0.5 0.1-1.2 X10*3/uL Eosinophils Absolute Auto 0.3 0.0-0.4 X10*3/u L Basophils Absolute Auto 0.1 0.0-0.2 X10*3/uL NRBC Abs Auto 0.000 0.0-0.012 X10*3/uL Liver Panel Reviewed date:03/23/2024 06:59:35 PM Interpretation: Performing Lab:[address] [phone] Notes/Report: Bilirubin Total 0.3 0.0-1.0 mg/dL Bilirubin Direct 0.1 0.0-0.5 mg/dL Aspartate Amino Transferase 27 5-31 U/L Alanine Aminotransferase 17 0-31 U/L Total Protein 6.6 6.5-8.0 g/dL Albumin Level 4.0 3.5-5.0 g/dL Alkaline Phosphatase 91 39-117 U/L MAMMOGRAM DIGITAL BILATERAL SCREEN Reviewed date:03/24/2024 08:32:51 AM Interpretation:Normal Performing Lab: Notes/Report: Normal Complete Blood Count Auto Di ff Reviewed date:04/23/2024 09:32:52 AM Interpretation: Performing Lab:[facility], [address] [place] [phone] Notes/Report: White Blood Count 5.5 4.8-10.8 X10*3/uL Red Blood Count 3.79 4.20-5.50 X10*6/uL Hemoglobin 13.4 12.0-16.0 g/dl Hematocrit 39.1 37.0-47.0 % Mean Corpuscular Volume 103.2 80.0-98.0 fL Mean Corpuscular Hemoglobin 35.4 27.0-33.0 pg Mean Corpuscular HGB Conc 34.3 31.0-35.0 g/dl Red Cell Distribution Width 13.8 11.0-16.0 % Platelet Count 331 160-400 X10*3/uL Mean Platelet Volume 9.7 9.4-12.3 fL Neutrophils Percent Auto 70.8 45-73 % Imm Gran Pct Auto 0.4 0.0-0.4 % Lymphocytes Percent Auto 15.3 20-40 % Monocytes Percent Auto 7.5 2-11 % Eosinophils Percent Auto 4.7 0-4 % Basophils Percent Auto 1.3 0-2 % NRBC Pct Auto 0.0 0.0-0.2 /100WBC Neutrophils Absolute Auto 3.9 2.0-8.3 x10*3/u L Imm Gran Abs Auto 0.02 0.00-0.03 X10*3/uL Lymphocytes Absolute Auto 0.8 1.2-4.9 X10*3/u L Monocytes Absolute Auto 0.4 0.1-1.2 X10*3/uL Eosinophils Absolute Auto 0.3 0.0-0.4 X10*3/u L Basophils Absolute Auto 0.1 0.0-0.2 X10*3/uL NRBC Abs Auto 0.000 0.0-0.012 X10*3/uL Liver Panel Reviewed date:04/23/2024 09:33:16 AM Interpretation: Performing Lab:[facility], [address] [place] [phone] Notes/Report: Bilirubin Total 0.4 0.0-1.0 mg/dL Bilirubin Direct 0.1 0.0-0.5 mg/dL Aspartate Amino Transferase 23 5-31 U/L Alanine Aminotransferase 16 0-31 U/L Total Protein 7.1 6.5-8.0 g/dL Albumin Level 4.3 3.5-5.0 g/dL Alkaline Phosphatase 86 39-117 U/L Complete Blood Count Auto Di ff Reviewed date:05/20/2024 04:02:01 PM Interpretation: Performing Lab:[address] [id number] Notes/Report: White Blood Count 4.9 4.8-10.8 X10*3/uL Red Blood Count 3.74 4.20-5.50 X10*6/uL Hemoglobin 13.3 12.0-16.0 g/dl Hematocrit 39.0 37.0-47.0 % Mean Corpuscular Volume 104.3 80.0-98.0 fL Mean Corpuscular Hemoglobin 35.6 27.0-33.0 pg Mean Corpuscular HGB Conc 34.1 31.0-35.0 g/dl Red Cell Distribution Width 13.5 11.0-16.0 % Platelet Count 298 160-400 X10*3/uL Mean Platelet Volume 9.4 9.4-12.3 fL Neutrophils Percent Auto 66.3 45-73 % Imm Gran Pct Auto 0.2 0.0-0.4 % Lymphocytes Percent Auto 17.2 20-40 % Monocytes Percent Auto 10.0 2-11 % Eosinophils Percent Auto 4.9 0-4 % Basophils Percent Auto 1.4 0-2 % NRBC Pct Auto 0.0 0.0-0.2 /100WBC Neutrophils Absolute Auto 3.2 2.0-8.3 x10*3/u L Imm Gran Abs Auto 0.01 0.00-0.03 X10*3/uL Lymphocytes Absolute Auto 0.8 1.2-4.9 X10*3/u L Monocytes Absolute Auto 0.5 0.1-1.2 X10*3/uL Eosinophils Absolute Auto 0.2 0.0-0.4 X10*3/u L Basophils Absolute Auto 0.1 0.0-0.2 X10*3/uL NRBC Abs Auto 0.000 0.0-0.012 X10*3/uL Liver Panel Reviewed date:05/20/2024 04:02:33 PM Interpretation: Performing Lab:[facility], [address] [place] [phone] Notes/Report: Bilirubin Total 0.4 0.0-1.0 mg/dL Bilirubin Direct 0.1 0.0-0.5 mg/dL Aspartate Amino Transferase 29 5-31 U/L Alanine Aminotransferase 19 0-31 U/L Total Protein 7.0 6.5-8.0 g/dL Albumin Level 4.1 3.5-5.0 g/dL Alkaline Phosphatase 82 39-117 U/L Complete Blood Count Auto Di ff Reviewed date:06/21/2024 10:33:11 AM Interpretation: Performing Lab:[facility], [address] [place] [phone] Notes/Report: White Blood Count 4.2 4.8-10.8 X10*3/uL Red Blood Count 3.85 4.20-5.50 X10*6/uL Hemoglobin 13.5 12.0-16.0 g/dl Hematocrit 40.3 37.0-47.0 % Mean Corpuscular Volume 104.7 80.0-98.0 fL Mean Corpuscular Hemoglobin 35.1 27.0-33.0 pg Mean Corpuscular HGB Conc 33.5 31.0-35.0 g/dl Red Cell Distribution Width 13.8 11.0-16.0 % Platelet Count 272 160-400 X10*3/uL Mean Platelet Volume 9.9 9.4-12.3 fL Neutrophils Percent Auto 61.5 45-73 % Imm Gran Pct Auto 0.2 0.0-0.4 % Lymphocytes Percent Auto 18.8 20-40 % Monocytes Percent Auto 12.1 2-11 % Eosinophils Percent Auto 6.0 0-4 % Basophils Percent Auto 1.4 0-2 % NRBC Pct Auto 0.0 0.0-0.2 /100WBC Neutrophils Absolute Auto 2.6 2.0-8.3 x10*3/u L Imm Gran Abs Auto 0.01 0.00-0.03 X10*3/uL Lymphocytes Absolute Auto 0.8 1.2-4.9 X10*3/u L Monocytes Absolute Auto 0.5 0.1-1.2 X10*3/uL Eosinophils Absolute Auto 0.3 0.0-0.4 X10*3/u L Basophils Absolute Auto 0.1 0.0-0.2 X10*3/uL NRBC Abs Auto 0.000 0.0-0.012 X10*3/uL Liver Panel Reviewed date:06/21/2024 10:33:28 AM Interpretation: Performing Lab:[facility], [address] [place] [phone] Notes/Report: Bilirubin Total 0.4 0.0-1.0 mg/dL Bilirubin Direct 0.1 0.0-0.5 mg/dL Aspartate Amino Transferase 24 5-31 U/L Alanine Aminotransferase 24 0-31 U/L Total Protein 7.3 6.5-8.0 g/dL Albumin Level 4.2 3.5-5.0 g/dL Alkaline Phosphatase 87 39-117 U/L REASON FOR REFERRAL No Information MEDICATIONS Medication SIG (Take, Route, Frequency, Duration) Notes Start Date End Date Status Cholestyramine 4 GM/DOSE use anywhere fr om 1/4 to 1 scoop Orally Once or twice a day a needed for diarrhea for 30 days Active azaTHIOprine 50 MG TAKE 2 TABLETS BY MO UTH EVERY DAY Active Cyanocobalamin 1000 MCG/ML INJECT 1ML EV ALEJANDRO [...] 1 tablet Orally once a day Active Raloxifene HCl Unkno wn Pentasa 500 MG 2 capsules Orally Fo ur times a day 09/28/2012 Active traMADol HCl 50mg 1 tablet as needed Orally every 8 hours prn Active Omeprazole 20 MG take 1 capsule by mo uth once daily Orally Once a day Active Dicyclomine HCl 10 MG TAKE 1 TO 2 CAPSUL ES BY MOUTH 4 TIMES A DAY NEEDED FOR ABDOMINAL CRAMPS OR DISCOMFORT FOR 90 DAYS for 90 Active Pentasa 500 MG TAKE 2 CAPSULES BY M OUT 4 TIMES A DAY 90 DAYS for 90 Active IMMUNIZATIONS Vaccine Route Administration Date Status Comme nts Influenza Unknown 02/01/2018 Administered Influenza Unknown 01/30/2019 Administered Influenza Unknown 01/31/2020 Administered Influenza Unknown 03/01/2021 Administered Influenza Unknown 04/18/2022 Administered Influenza Unknown 03/10/2023 Administered Pneumococcal Unknown 03/01/2023 Administered SOCIAL HISTORY Tobacco Use: Social History Observation [...] in quitting? Not ready to yamileth t PROBLEMS Problem Type ICD Code Onset Dates Problem Status W/U Status Risk SNOMED Code Notes Problem Gastro-esophageal reflux disease without esophagitis (K21.9) Active confirmed 833439738 Problem Encounter for screening for malignant neoplasm of colon (Z12.11) Active confirmed 806234364 Problem History of adenomatous polyp of colon (Z86.010) Active confirmed 258874414 Problem Weight loss (R63.4) Active confirmed 30744170 Problem Crohn's disease of both small and large intestine without complication (K50.80) Active confirmed 64055568 Problem Crohn's disease of both small and large intestine without complications (K50.80) Active confirmed 06567219 Problem Diverticulosis of large intestine without perforation or abscess without bleeding (K57.30) Active confirmed Diverticul ar disease of colon (878555922) Problem Irritable bowel syndrome with diarrhea (K58.0) Active confirmed 037230897 Problem Melena (K92.1) Active confirmed 2972723 Problem Encounter for therapeutic drug level monitoring (Z51.81) Active confirmed 029043591 Problem Intestinal bypass and anastomosis status (Z98.0) Active confirmed History of gastrointestinal tract bypass (819513784) Problem Crohns disease of both small and large intestine without complication (K50.80) Active confirmed 57907700 Problem History of colon polyps (Z86.010) Active confirmed 640722001 Problem Gallstones (K80.20) Active confirmed 115552322 Problem GERD (gastroesophageal reflux disease) (K21.9) Active confirmed Gastroesophagea l reflux disease (198339844) Problem Abdominal pain, generalized (R10.84) Active confirmed 292720879 Problem Diarrhea, unspecified type (R19.7) Active confirmed 71501353 Problem Therapeutic drug monitoring (Z51.81) Active confirmed 267250493 Problem Crohn''s disease of both small and large intestine without complication (K50.80) Active confirmed 23312647 Problem 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) Active confirmed 14378257 VITAL SIGNS Blood pressure diastolic 76 mm Hg 03/22/2024 Height 65 in 03/22/2024 Blood pressure systolic 124 mm Hg 03/22/2024 Weight 121 lbs 03/22/2024 BMI 20.13 kg/m2 03/22/2024 Encounters Encounter Location Date Provider Diagnosis [facility] [address] [place] [phone] 10/28/2023 Neymar Sauer Encounter for screen ing colonoscopy Z12.11 ; Crohn''s disease of both small and large intestine without complication K50.80 ; Intestinal bypass and anastomosis status Z98.0 ; Diverticulosis of large intestine without perforation or abscess without bleeding K57.30 ; Other hemorrhoids K64.8 ; Gastro-esophageal reflux disease without esophagitis K21.9 ; Hiatal hernia K44.9 and Abdominal pain R10.9 [facility] [address] [place] [phone] 09/17/2023 Neymar Sauer Crohns disease of elkin th small and large intestine without complication K50.80 ; Gastro-esophageal reflux disease without esophagitis K21.9 ; Bile salt-induced diarrhea K90.89 ; Diarrhea, unspecified type R19.7 ; History of adenomatous polyp of colon Z86.010 and Encounter for screening for malignant neoplasm of colon Z12.11 [facility] [address] [place] [phone] 03/22/2024 Neymar Sauer GERD (gastroesophage al reflux disease) K21.9 ; Crohn's disease of both small and large intestine without complications K50.80 and Bile salt-induced diarrhea K90.89 [facility] [address] [place] [phone] 11/03/2023 Neymar Sauer [facility] [address] [place] [phone] 12/18/2023 Neymar Sauer [facility] [address] [place] [phone] 12/21/2023 Neymar Sauer [facility] [address] [place] [phone] 02/22/2024 Neymar Sauer Crohn''s disease of both small and large intestine without complication K50.80 ASSESSMENTS Encounter Date Diagnosis Assessment Notes Treatment Notes Treatment Clinical Notes 10/28/2023 Encounter for screening colonoscopy (ICD-10 - Z12.11) 10/28/2023 Crohn''s disease of both small and large intestine without complication (ICD-10 - K50.80) 09/17/2023 Gastro-esophageal reflux disease without esophagitis (ICD-10 - K21.9) 09/17/2023 Crohns disease of both small and large intestine without complication (ICD-10 - K50.80) Avoid all NSAIDs like Ibuprofen, Advil, etc. Tylenol and Tramadol are OK. 03/22/2024 Crohn's disease of both small and large intestine without complications (ICD-10 - K50.80) 03/22/2024 GERD (gastroesophageal reflux disease) (ICD-10 - K21.9) 02/22/2024 Crohn''s disease of both small and large intestine without complication (ICD-10 - K50.80) 10/28/2023 Intestinal bypass and anastomosis status (ICD-10 - Z98.0) 09/17/2023 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) Try the Cholestyramine powder for the diarrhea daily or as needed 03/22/2024 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) 10/28/2023 Diverticulosis of large intestine without perforation or abscess without bleeding (ICD-10 - K57.30) 09/17/2023 Diarrhea, unspecified type (ICD-10 - R19.7) 10/28/2023 Other hemorrhoids (ICD-10 - K64.8) 09/17/2023 History of adenomatous polyp of colon (ICD-10 - Z86.010) 10/28/2023 Gastro-esophageal reflux disease without esophagitis (ICD-10 - K21.9) 09/17/2023 Encounter for screening for malignant neoplasm of colon (ICD-10 - Z12.11) 10/28/2023 Hiatal hernia (ICD-10 - K44.9) 10/28/2023 Abdominal pain (ICD-10 - R10.9) PLAN OF TREATMENT Pending Test Test Name Order Date LIVER PROFILE 12/22/2022 LIVER PROFILE 06/02/2018 LIVER PROFILE 03/03/2012 LIVER PROFILE 06/04/2021 LIVER PROFILE 07/18/2016 LIVER PROFILE 07/30/2020 LIVER PROFILE 02/22/2024 LIVER PROFILE 10/26/2018 LIVER PROFILE 08/08/2021 LIVER PROFILE 06/29/2017 LIVER PROFILE 01/03/2014 CRP 03/04/2022 CRP 02/28/2021 CBC w DIFF 01/03/2014 CBC w DIFF 06/23/2019 CBC w DIFF 07/31/2014 CBC w DIFF 12/22/2022 CBC w DIFF 03/04/2022 CBC w DIFF 06/02/2018 CBC w DIFF 03/03/2012 CBC w DIFF 06/04/2021 CBC w DIFF 07/18/2016 CBC w DIFF 07/30/2020 CBC w DIFF 02/22/2024 CBC w DIFF 10/26/2018 CBC w DIFF 08/08/2021 CBC w DIFF 06/29/2017 SED RATE (ESR) 02/28/2021 SED RATE (ESR) 03/04/2022 STOOL WBC 09/17/2023 STOOL WBC 03/04/2022 C DIFFICILE RFLX PCR 02/28/2021 C DIFFICILE RFLX PCR 09/17/2023 C DIFFICILE RFLX PCR 03/04/2022 Calprotectin, Fecal 09/17/2023 GI PANEL 09/17/2023 Future Test Test Name Order Date COLONOSCOPY 02/02/2013 COLONOSCOPY 06/02/2018 UPPER GI ENDOSCOPY 02/21/2020 UPPER GI ENDOSCOPY 09/17/2023 COLONOSCOPY 09/17/2023 Next Appt Details Provider Name:Neymar Sauer , 09/27/2024 10:50:00 AM, [address] [place] [address], [facility] [address], [place], [address], Insurance Providers Payer Name Payer Address Payer Phone Subscriber Number Group Number Insured Name Patient Relationship to Insured Coverage Start Date Coverage End Date [place] OF [place] [address] [place] [address] [phone] [id number] EBEN BUNN Self - patient is the insured MEDEX ATTN CLAIMS [address] [place] [address] [id number] EBEN BUNN Self - patient is the insured MEDICAL (GENERAL) HISTORY Medical History History ICD Code Crohn's disease of SI and co sea-diagnosed in the early and had a right ileocolectomy with Dr. Lima in . 1989- colonoscopy in 06/2010 with mild ileocolitis and a single tubular adenoma--no dysplasia She does describe that she d eveloped some abdominal discomfort and hematuria over the summer of 2010, for which she underwent a CAT scan and evaluation by Dr. Freeman from urology. The CAT scan was negative for any kidney stones but did show a tiny stone in the gallbladder she had a bone density study in November which was normal in regard to the lumbar spine, but did show some osteopenia in the area of the femoral neck Denies SC,DM,CVA,Lung disease,renal dise ase Anxiety GERD--EGD in 04/2007 was neg . except a small HH-bx. neg for celiac disease and neg. for H.pylori Colonoscopy 06/2013--no activ e colitis--bx neg for dysplasia--tubular adenoma removed in 2010 Colonoscopy in 07/2018-normal colon and colonic biopsies were neg. for dysplasia--there was some minmal ileitis, but the majority of the ileum that was visualized appeared normal EGD-02/29/2020--minimal HH, n o esophagitis/no Vinson's, mild gastritis-bx neg for H.pylori Urinary incontinence-sees Dr. Mcfarlane Kidney stones 03/2022 with Hydronephrosi s--s/p ESWL and cysto Upper endoscopy in September revealed a small hiatal hernia but no sign of esophagitis or Vinson's esophagus Colonoscopy in September of 2023 r evealed a normal anastomosis without any stricture, a normal distal small bowel without any active ileitis, and a normal colon without any polyps or active colitis. All the biopsies from the colon were negative for dysplasia as well. Surgical History Surgery Date(Month/Year) Crohn's disease in 1989 with right ileoc olectomy with Dr. Lima Benign breast biopsy BTL Cyst behind right ear removed November 2012 Removed basal call carcinoma from restoration Dec 2012 Lap [facility]-Dr. Leahy 04/17/2015 Squamous cell cancer on scalp and forehe ad 2017 She is scheduled for a hyste roscopy and D&C with Dr. Carcamo for 03/14/2022 D&C polyp in uterus benign 2021 Ganglion cyst on wrist removed 12/2022
[2024-07-22 09:18] LABS: MANUAL DIFF FLAG NO
[2024-07-22 09:56] LABS: Basophils Absolute Auto 0.1 X10*3/uL (0.0-0.2); Basophils Percent Auto 1.4 % (0-2); Eosinophils Absolute Auto 0.2 X10*3/uL (0.0-0.4); Eosinophils Percent Auto 3.2 % (0-4); Hematocrit 36.8 % (37.0-47.0); Hemoglobin 13.3 g/dl (12.0-16.0); Imm Gran Abs Auto 0.02 X10*3/uL (0.00-0.03); Imm Gran Pct Auto 0.4 % (0.0-0.4); Lymphocytes Absolute Auto 0.8 X10*3/uL (1.2-4.9); Lymphocytes Percent Auto 16.4 % (20-40); Mean Corpuscular HGB Conc 36.1 g/dl (31.0-35.0); Mean Corpuscular Hemoglobin 36.2 pg (27.0-33.0); Mean Corpuscular Volume 100.3 fL (80.0-98.0); Mean Platelet Volume 10.2 fL (9.4-12.3); Monocytes Absolute Auto 0.5 X10*3/uL (0.1-1.2); Monocytes Percent Auto 9.6 % (2-11); Neutrophils Absolute Auto 3.5 x10*3/uL (2.0-8.3); Platelet Count 346 X10*3/uL (160-400); Red Blood Count 3.67 X10*6/uL (4.20-5.50); Red Cell Distribution Width 13.9 % (11.0-16.0); Retic HGB Equivalent 38.7 pg (30.0-35.0); Reticulocyte Percent 1.3 % (0.5-1.8); Reticulocytes Absolute 0.049 X10*6/uL (0.026-0.095)
[2024-07-22 09:57] LABS: Basophils Absolute Auto 0.1 X10*3/uL (0.0-0.2); Basophils Percent Auto 1.2 % (0-2); Eosinophils Absolute Auto 0.2 X10*3/uL (0.0-0.4); Eosinophils Percent Auto 3.9 % (0-4); Hematocrit 36.9 % (37.0-47.0); Hemoglobin 12.8 g/dl (12.0-16.0); Imm Gran Abs Auto 0.02 X10*3/uL (0.00-0.03); Imm Gran Pct Auto 0.4 % (0.0-0.4); Lymphocytes Absolute Auto 0.8 X10*3/uL (1.2-4.9); Lymphocytes Percent Auto 15.5 % (20-40); Mean Corpuscular HGB Conc 34.7 g/dl (31.0-35.0); Mean Corpuscular Volume 100.8 fL (80.0-98.0); Mean Platelet Volume 10.1 fL (9.4-12.3); Monocytes Absolute Auto 0.5 X10*3/uL (0.1-1.2); Monocytes Percent Auto 10.4 % (2-11); Neutrophils Absolute Auto 3.5 x10*3/uL (2.0-8.3); Neutrophils Percent Auto 68.6 % (45-73); Platelet Count 343 X10*3/uL (160-400); Red Blood Count 3.66 X10*6/uL (4.20-5.50); Red Cell Distribution Width 13.8 % (11.0-16.0); White Blood Count 5.1 X10*3/uL (4.8-10.8)
[2024-07-22 09:59] LABS: Appearance Urine Clear; Color Urine Yellow; Glucose Urine UA Negative (Negative); Leukocyte Esterase Urine Large (3+) (Negative); Nitrite Urine Negative (Negative); PH 5.5 (5.0-9.0); Specific Gravity - Urine <= 1.005 (1.005-1.025); UMIC TRIGGER UACC YES; Urine Blood Trace (Negative); Urine Ketones Negative (Negative); Urine Protein Negative (Neg-Trace)
[2024-07-22 10:02] LABS: Bacteria Urine 1+ (None Seen); Hyaline Casts Urine 0-2 /LPF (0-2); RBC Urine 0-2 /HPF (0-2); Squamous Epithelial Cell Urine 0-2 /HPF (0-2); UACC Culture Trigger YES; WBC Urine 21-50 /HPF (0-5)
[2024-07-22 10:05] LABS: Estimated Average Glucose 117 mg/dL; Hemoglobin A1C 131.8893 umol/L; Hemoglobin A1c % 5.7 % (<6.0); Total Hemoglobin (HGBA1C) 3382.5615 umol/L
[2024-07-22 10:59] LABS: Alanine Aminotransferase 23 U/L (0-31); Albumin Level 3.9 g/dL (3.5-5.0); Alkaline Phosphatase 91 U/L (39-117); Anion Gap 10 (12-20); Aspartate Amino Transferase 28 U/L (5-31); Bilirubin Direct 0.2 mg/dL (0.0-0.5); Bilirubin Total 0.4 mg/dL (0.0-1.0); Blood Urea Nitrogen 7 mg/dL (9-16); Calcium 9.3 mg/dL (8.4-10.2); Carbon Dioxide 25 mmol/L (22-29); Chloride 108 mmol/L (96-108); Cholesterol 143 mg/dL (<200); Estimated Glomerular Filt Rate > 60; Glucose Random 110 mg/dL (60-115); HDL Cholesterol 81 mg/dL (>40); Iron 94 mcg/dL (30-160); LDL Cholesterol Calculated 48 mg/dL (<100); Percent Iron Saturation 37 % (15-50); Potassium 3.9 mmol/L (3.3-5.1); Sodium 139 mmol/L (135-145); Total Iron Binding Capacity 257 mcg/dL (228-428); Triglycerides 72 mg/dL (<150); Unsaturated Iron Binding 163 ug/dL
[2024-07-22 11:05] LABS: Ferritin 93 ng/mL (10-250); Free T4 (Free Thyroxine) 0.97 ng/dL (0.71-1.85)
[2024-07-22 11:06] LABS: Folate 9.9 ng/mL (> or = 4.0); Vitamin B12 > 2000 pg/mL (200-900)
== END 2024-07-22 08:53 | disposition home or self-care (01) ==
LOC: HO.CT 08:52
PROVIDERS: Internal Medicine; PCP Internal Medicine; Visit Provider Physician Assistant Medical
DX: K50.80 Crohn's disease of both small and large intestine without complications (principal); R73.02 Impaired glucose tolerance (oral); E78.00 Pure hypercholesterolemia, unspecified; F17.210 Nicotine dependence, cigarettes, uncomplicated; R82.90 Unspecified abnormal findings in urine
CPT/HCPCS: 36415; 71271; 80053; 80061; 80076; 81001; 82248; 82306; 82607; 82728; 82746; 83036; 83540; 84439; 84443; 85025; 85045; 87086; 87088; 87186; 96372; J3420

== ENCOUNTER → 2024-07-22 09:21 | Outpatient (BNV) | payer MEDICARE, SELFPAY | PROVIDERS: PCP Internal Medicine; Visit Provider Radiology Diagnostic Radiology | DX: F17.210 Nicotine dependence, cigarettes, uncomplicated (principal) | CPT/HCPCS: 71271 ==

== ENCOUNTER 2024-08-19 08:11 | Outpatient (AMB) | payer MEDICARE, SELFPAY ==
--- OUTSIDE RECORDS SUMMARY | 2024-08-19 08:16 | XMS_ITS ---
Author Organization [facility] Address [address] [place] [address] Care Team Providers Care Line Installer Name Role Phone Tae Duarte MD Primary Care Provider Neymar Sanders [phone] Allergies Allergen (clinical drug ingredient) Drug/Non Drug Allergy documented on EMR Reaction Allergy Type Onset Date Status tetracycline Tetracycline HCl Unknown Drug Allergy Active Darvon Unknown Drug Allergy Active REASON FOR VISIT Patient presents today for gerd, hiatal hernia Medications Medication SIG (Take, Route, Frequency, Duration) Notes [...] 50 MG TAKE 2 TABLETS BY [facility] EVERY DAY Active Raloxifene HCl Unkno [...] A DAY 90 DAYS for 90 Active Social History Tobacco Use: Social History Observation Description Date Details (start date - stop date) Current Smoker NA - NA Tobacco Use/Smoking Question Answer Notes Patient is a current smoker How often do you smoke cigarettes? every day How many cigarettes a day do you smoke? 11-20 How soon after you wake up do you smoke your fir st cigarette? 6-30 minutes Are you interested in quitting? Not ready to yamileth t Section Notes: Smokes; no sig alcohol Vital Signs Blood pressure systolic 124 mm Hg 03/22/20 24 Blood pressure diastolic 76 mm Hg 024 Height 65 in 03/22/2024 Weight 121 lbs 03/22/2024 BMI 20.13 kg/m2 03/22/2024 Encounters Encounter Location Date Provider Diagnosis [facility] [address] [place] [address] 03/22/2024 Neymar Sauer GERD (gastroesophage al reflux disease) K21.9 ; Crohn's disease of both small and large intestine without complications K50.80 and Bile salt-induced diarrhea K90.89 Assessments Encounter Date Diagnosis (ICD Code) Assessment Notes Treatment Notes Treatment Clinical Notes Section Notes 03/22/2024 GERD (gastroesophageal reflux disease) (ICD-10 - K21.9) Vivian appears quite well at the present time. It does appear that the addition of the cholestyramine powder has given her good relief of her diarrhea. This would certainly speak for the fact that this is related to a bile-induced diarrhea in relation to her previous cholecystectomy and previous resection of the distal small bowel and ileocecal valve. I did advise her to continue the cholestyramine long-term to continue symptomatic relief of the diarrhea. We also reviewed the need to continue her current regimen of the Pentasa and azathioprine regularly. I advised her to continue her monthly laboratories as well. I did advise her to continue her daily omeprazole as that does seem to be giving her good relief of her reflux symptoms. I also advised her to continue dicyclomine for symptomatic relief of any abdominal cramps. We again discussed the importance of her stopping smoking both for her overall health and specifically to help keep her Crohn's in remission. I will plan to see Vivian in the Spring for a followup visit. I did advise her to definetly call prior to that if she has any problems or questions I can be of assistance with. Vivian was comfortable with this plan. Thank you again for allowing me to participate in Vivian's care. I shall continue to keep you advised of her progress. 03/22/2024 Crohn's disease of both small and large intestine without complications (ICD-10 - K50.80) Vivian appears quite well at the present time. It does appear that the addition of the cholestyramine powder has given her good relief of her diarrhea. This would certainly speak for the fact that this is related to a bile-induced diarrhea in relation to her previous cholecystectomy and previous resection of the distal small bowel and ileocecal valve. I did advise her to continue the cholestyramine long-term to continue symptomatic relief of the diarrhea. We also reviewed the need to continue her current regimen of the Pentasa and azathioprine regularly. I advised her to continue her monthly laboratories as well. I did advise her to continue her daily omeprazole as that does seem to be giving her good relief of her reflux symptoms. I also advised her to continue dicyclomine for symptomatic relief of any abdominal cramps. We again discussed the importance of her stopping smoking both for her overall health and specifically to help keep her Crohn's in remission. I will plan to see Vivian in the Spring for a followup visit. I did advise her to definetly call prior to that if she has any problems or questions I can be of assistance with. Vivian was comfortable with this plan. Thank you again for allowing me to participate in Vivian's care. I shall continue to keep you advised of her progress. 03/22/2024 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) Vivian appears quite well at the present time. It does appear that the addition of the cholestyramine powder has given her good relief of her diarrhea. This would certainly speak for the fact that this is related to a bile-induced diarrhea in relation to her previous cholecystectomy and previous resection of the distal small bowel and ileocecal valve. I did advise her to continue the cholestyramine long-term to continue symptomatic relief of the diarrhea. We also reviewed the need to continue her current regimen of the Pentasa and azathioprine regularly. I advised her to continue her monthly laboratories as well. I did advise her to continue her daily omeprazole as that does seem to be giving her good relief of her reflux symptoms. I also advised her to continue dicyclomine for symptomatic relief of any abdominal cramps. We again discussed the importance of her stopping smoking both for her overall health and specifically to help keep her Crohn's in remission. I will plan to see Vivian in the Spring for a followup visit. I did advise her to definetly call prior to that if she has any problems or questions I can be of assistance with. Vivian was comfortable with this plan. Thank you again for allowing me to participate in Vivian's care. I shall continue to keep you advised of her progress. Plan Of Treatment Medication Medication Name Sig Start Date Stop [...] uth once daily Orally Once a day Cholestyramine 4 GM/DOSE use anywhere fr om / to 1 scoop Orally Once or twice a day a needed for diarrhea 09/17/2023 Next Appt Details Follow Up: 6 Months, Reason: Provider Name:Neymar Sauer , 09/27/2024 10:50:00 AM, [address] [place] [address], [place] [address], [place], [address], Progress Notes * VIVIAN BUNN ADOB:01/1955 (68 yo F)Acc No.[id number]:03/22/2024 Progress Notes Patient:?VIVIAN BUNN A Provider:?Neymar Sauer MD :1955???Age:68 Y???Sex:Female D ate:03/22/2024 Address:[address] [place] [address] [id number] Pcp:Tae Duarte MD Subjective: * Chief Complaints: * ???Patient presents today fo r gerd, hiatal hernia * HPI: ???incontinence:? I saw Vivian in followup today in regard to her underlying history of Crohn's disease, gastroesophageal reflux, and diarrhea. ?I last saw Vivian in September, at which time she underwent both an upper endoscopy and colonoscopy. The upper endoscopy revealed only a small hiatal hernia but no sign of any esophagitis or Vinson's esophagus. The colonoscopy did not reveal any sign of active Crohn's disease, polyps, nor any type of anastomotic stricture. Biopsies throughout the colon were negative for dysplasia.. ?Since that time she reports that she did start the cholestyramine powder and has been using one scoop every day. She has .found that has made a significant and positive difference in her bowel movements. She describes that she is now having one or 2 formed stools daily without any significant diarrhea. She is quite pleased with that improvement. She denies any abdominal pain, jaundice, nor weight loss. She denies any hematochezia nor melena. ?She does continue on her Crohn's medications of Pentasa and azathioprine. Her most recent labs from just last month revealed a normal liver profile and CBC. She has remained compliant with the monthly regimen of the laboratories on the azathioprine. ?She does continue her daily omeprazole with good relief of her heartburn and indigestion. She also continues to use 10 or 20 mg of dicyclomine at least 2 or 3 times a day for abdominal cramps with good relief. * ROS:?General/Constitutional:?Change in appetite?denies.?Chills?denies.?Fatigue?denies.?Ophthalmologic:?Patient denies? Negative..?ENT:?Patient denies?Negative..?Respiratory:?Patient denies?No coughing/hemoptysis..?Cardiovascular:?Patient denies? No chest pain/orthopnea..?Gastrointestinal:?Comments?See HPI for details.?Genitourinary:?Incontinence?admits.?Musculoskeletal:?Patient denies?Back pain, occasional myalgias.?Skin:?Patient denies?No rash/pruritus..?Neurologic:?Patient denies? No headaches/seizures..?Psychiatric:?Patient complaining of?Anxiety.? * Medical History:? * Surgical History:?Crohn's di sease in 1989 with right ileocolectomy with Dr. Lima Benign breast biopsy BTL Cyst behind right ear removed November 2012Removed basal call carcinoma from restorationism Dec 2012[facility]-Dr. Leahy 04/17/2015Squamous cell cancer on scalp and forehead 2017She is scheduled for a hysteroscopy and D&C with Dr. Carcamo for 03/14/2022 D&C polyp in uterus benign 2021Ganglion cyst on wrist removed 12/2022 * Hospitalization/Major Diagno stic Procedure:?No Hospitalization History. * Family History:?Father: dece ased, diagnosed with Heart disease.?Mother: , diagnosed with HTN (hypertension).?Siblings: alive, crohn.? No GI Malignancy, brother with Crohn's. * Social History:?Tobacco Use:?Tobacco Use/Smoking?Patient is a?current smoker,?How often do you smoke cigarettes??every day,?How many cigarettes a day do you smoke??11-20,?How soon after you wake up do you smoke your first cigarette??6-30 minutes,?Are you interested in quitting??Not ready to quit.?Drugs/Alcohol:?Alcohol Screen?Points: 2, Interpretation: Negative.?Miscellaneous:?Marital status: . 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 ???Smokes; no sig alcohol. * Medications:?TakingVitamin B -6 100 MG Tablet 1 tablet Orally Once a daybusPIRone HCl 10 MG Tablet 1 tablet Orally once a dayCyanocobalamin 1000 MCG/ML Solution INJECT 1ML EVERY 4 WEEKS Injection Gemtesa 75 MG Tablet Oral Omeprazole 20 MG Delayed Release Capsule take 1 capsule by mouth once daily Orally Once a dayCholestyramine 4 GM/DOSE Powder use anywhere from 1/4 to 1 scoop Orally Once or twice a day a needed for diarrheaPentasa 500 MG Capsule Extended Release TAKE 2 CAPSULES BY MOUTH 4 TIMES A DAY 90 DAYS azaTHIOprine 50 MG Tablet TAKE 2 TABLETS BY MOUTH EVERY DAY Dicyclomine HCl 10 MG Capsule TAKE 1 TO 2 CAPSULES BY MOUTH 4 TIMES A DAY NEEDED FOR ABDOMINAL CRAMPS OR DISCOMFORT FOR 90 DAYS traMADol HCl 50mg Tablet 1 tablet as needed Orally every 8 hours, Notes: prnTaking Vitamin B-6 100 MG Tablet 1 tablet Orally Once a dayTaking busPIRone HCl 10 MG Tablet 1 tablet Orally once a dayTaking Cyanocobalamin 1000 MCG/ML Solution INJECT 1ML EVERY 4 WEEKS Injection Taking Gemtesa 75 MG Tablet Oral Taking Omeprazole 20 MG Delayed Release Capsule take 1 capsule by mouth once daily Orally Once a dayTaking Cholestyramine 4 GM/DOSE Powder use anywhere from 1/4 to 1 scoop Orally Once or twice a day a needed for diarrheaTaking Pentasa 500 MG Capsule Extended Release TAKE 2 CAPSULES BY MOUTH 4 TIMES A DAY 90 DAYS Taking azaTHIOprine 50 MG Tablet TAKE 2 TABLETS BY MOUTH EVERY DAY Taking Dicyclomine HCl 10 MG Capsule TAKE 1 TO 2 CAPSULES BY MOUTH 4 TIMES A DAY NEEDED FOR ABDOMINAL CRAMPS OR DISCOMFORT FOR 90 DAYS Taking traMADol HCl 50mg Tablet 1 tablet as needed Orally every 8 hours, Notes: prnDiscontinuedCholestyramine 4 GM/DOSE Powder 1 scoop Orally Once a dayOmeprazole 20 MG Capsule Delayed Release TAKE 1 CAPSULE BY MOUTH EVERY DAY Discontinued Cholestyramine 4 GM/DOSE Powder 1 scoop Orally Once a dayDiscontinued Omeprazole 20 MG Capsule Delayed Release TAKE 1 CAPSULE BY MOUTH EVERY DAY UnknownRaloxifene HCl Medication List reviewed and reconciled with the patientUnknown Raloxifene HCl Medication List reviewed and reconciled with the patient * Allergies:?DarvonTetracyclin e HClyes[Allergies Verified] Objective: * Vitals:?Wt: 121 lbs, Ht: 65 in, BMI:20.13 Index, BP: 124/76 mm Hg. * Examination: ???General Examination: ?GENERAL APPEARANCE:?pleasant, well nourished, well developed, in no acute distress.?EYES:?sclera non-icteric.?ORAL CAVITY:?mucosa moist.?NECK/THYROID:?no cervical lymphadenopathy, neck supple.?SKIN:?nonjaundiced, no spider angiomata..?HEART:?S1, S2 normal.?LUNGS:?clear to auscultation bilaterally.?ABDOMEN:?normal bowel sounds, no guarding or rigidity, no hepatosplenomegaly, no masses palpable, soft, nontender, nondistended..?EXTREMITIES:?no edema.?NEUROLOGIC:?alert and oriented.? Assessment: * Assessment: 1.?Crohn's disease of both s mall and large intestine without complications - K50.80 (Primary)?2.?GERD (gastroesophageal reflux disease) - K21.9?3.?Bile salt-induced diarrhea - K90.89? Vivian appears quite well at the present time. It does appear that the addition of the cholestyramine powder has given her good relief of her diarrhea. This would certainly speak for the fact that this is related to a bile-induced diarrhea in relation to her previous cholecystectomy and previous resection of the distal small bowel and ileocecal valve. I did advise her to continue the cholestyramine long- term to continue symptomatic relief of the diarrhea. We also reviewed the need to continue her current regimen of the Pentasa and azathioprine regularly. I advised her to continue her monthly laboratories as well. I did advise her to continue her daily omeprazole as that does seem to be giving her good relief of her reflux symptoms. I also advised her to continue dicyclomine for symptomatic relief of any abdominal cramps. We again discussed the importance of her stopping smoking both for her overall health and specifically to help keep her Crohn's in remission. I will plan to see Vivian in the Spring for a followup visit. I did advise her to definetly call prior to that if she has any problems or questions I can be of assistance with. Vivian was comfortable with this plan. Thank you again for allowing me to participate in Vivian's care. I shall continue to keep you advised of her progress. Plan: * Treatment: * Procedure Codes:?3017F COLOR ECTAL CA SCREEN DOC [id number] Pt scrn tbco and id as [id number] BP SCR NOT PRFRM REC REASON NOS * Preventive Medicine:? ??Urinary Incontinence:?Urinary Incontinence?Assessment:?Present,?Plan of care documented:?Yes,?Type of plan of care:?Lifestyle interventions.? ??Screenings:?Fall Risk Screening?Fall Risk Assessment:?No falls in the past year,?Screening:?No falls in the past year,?Assessment:?Not performed, no reason specified,?Plan of Care:?Not documented, no reason specified.? * Follow Up:?6 Months * * Sign off status: Completed true * Provider:?Neymar Sauer MD Date:? [address] ad[address]/Dexter/Tereso on:?08/19/2024 08:16 AM EDT History and Physical Notes * HPI (History of Present Illness) Category Sub-Category Detail Notes Category Not es incontinence I saw Vivian in followup today in regard to her underlying history of Crohn's disease, gastroesophageal reflux, and diarrhea. I last saw Vivian in September, at which time she underwent both an upper endoscopy and colonoscopy. The upper endoscopy revealed only a small hiatal hernia but no sign of any esophagitis or Vinson's esophagus. The colonoscopy did not reveal any sign of active Crohn's disease, polyps, nor any type of anastomotic stricture. Biopsies throughout the colon were negative for dysplasia.. Since that time she reports that she did start the cholestyramine powder and has been using one scoop every day. She has .found that has made a significant and positive difference in her bowel movements. She describes that she is now having one or 2 formed stools daily without any significant diarrhea. She is quite pleased with that improvement. She denies any abdominal pain, jaundice, nor weight loss. She denies any hematochezia nor melena. She does continue on her Crohn's medications of Pentasa and azathioprine. Her most recent labs from just last month revealed a normal liver profile and CBC. She has remained compliant with the monthly regimen of the laboratories on the azathioprine. She does continue her daily omeprazole with good relief of her heartburn and indigestion. She also continues to use 10 or 20 mg of dicyclomine at least 2 or 3 times a day for abdominal cramps with good relief. Examination Category Sub-Category Detail Notes Category Not es General Examination GENERAL APPEARANCE: pleasant , well [...]
--- OUTSIDE RECORDS SUMMARY | 2024-08-19 08:17 | XMS_ITS ---
Author Organization [facility] Address [address] [place] [address] Care Team Providers Care Senior Game Developer Name Role Phone Tae Duarte MD Primary Care Provider Neymar Sanders [phone] REASON FOR VISIT need new lab order faxed Encounters Encounter Location Date Provider Diagnosis [facility] [address] [place] [address] 02/22/2024 Neymar Sauer Crohn''s disease of both small and large intestine without complication K50.80 Assessments Encounter Date Diagnosis (ICD Code) Assessment Notes Treatment Notes Treatment Clinical Notes Section Notes 02/22/2024 Crohn''s disease of both small and large intestine without complication (ICD-10 - K50.80) Plan Of Treatment Pending Test Test Name Order Date LIVER PROFILE 02/22/2024 CBC w DIFF 02/22/2024 Next Appt Details Provider Name:Neymar Sauer , 09/27/2024 10:50:00 AM, [address], [address], [place], [address], Progress Notes * EBEN BUNN ADOB:01/1955 (68 yo F)Acc No.[id number]:02/22/2024 Patient:?EBEN BUNN :1955???Age:68 Y???Sex:Female Address:[address] [place] [address] Subjective: * Chief Complaints: * ???Need new lab order faxed * Medical History:? * Surgical History:? * Hospitalization/Major Diagno stic Procedure:? * Medications:? Objective: Assessment: * Assessment: 1.?Crohn''s disease of both small and large intestine without complication - K50.80 (Primary)? Plan: * Treatment: ?LAB: CBC w DIFF* Monthly * Procedure Codes:? * true * Date:? Generated for Ct adame/Dexter/eTransmitting on:?08/19/2024 08:16 AM EDT
--- OUTSIDE RECORDS SUMMARY | 2024-08-19 08:17 | XMS_ITS ---
Author Organization [facility] Address [address] [place] [address] Care Team Providers Care Educational Assistant Teacher Name Role Phone Tae Duarte MD Primary Care Provider Neymar Sanders [phone] REASON FOR VISIT called pharmacy Encounters Encounter Location Date Provider Diagnosis [facility] [address] [place] [address] 12/21/2023 Neymar Sauer Plan Of Treatment Next Appt Details Provider Name:Neymar Sauer , 09/27/2024 10:50:00 AM, [address], [address], [place], [address], Progress Notes * EBEN BUNN ADOB:01/1955 (68 yo F)Acc No.[id number]:12/21/2023 Patient:?EBEN BUNN :1955???Age:68 Y???Sex:Female Address:[place] [address] * true * Date:? Generated for Printi ng/Dexter/eTransmitting on:?08/19/2024 08:16 AM EDT
--- NOTE | 2024-08-19 08:45 | AM.OFFVISNUR ---
Intake Visit Reasons: B12 Shot Allergies Darvon Allergy (Intermediate, Verified 07/08/24 10:29) oral swelling Doxycycline Hyclate Allergy (Intermediate, Verified 07/08/24 10:29) diarrhea, severe diarrhea tetracycline [TETRACYCLINE] Allergy (Intermediate, Verified 07/08/24 10:29) Itching Office Meds cyanocobalamin (vitamin B-12) 1,000 mcg/mL injection solution Performing Provider: Tae Duarte MD [facility] Administered by: Elvi Almonte LPN on 08/19/24 08:45 Dose Route Admin Location Dispensed Lot Number Expiration Date [facility] Compressor Service Technician 1,000 mcg IM left deltoid 1 mL [id number] 04/30/25 05547-370-33 [employer] Assessment & Plan Assessment & Plan Orders: Orders AMB Vitamin B12 Injection Patient Supplied Today E53.8 - Deficiency of other specified B group vitamins Medications: New cyanocobalamin (vitamin B-12) 1,000 mcg IM ONCE 1 mL 0RF E53.8 - Deficiency of other specified B group vitamins Coding
== END 2024-08-19 08:48 | disposition home or self-care (01) ==
LOC: HO.HMCH 08:12
PROVIDERS: PCP Internal Medicine; Visit Provider Internal Medicine
DX: E53.8 Deficiency of other specified B group vitamins (principal)

== ENCOUNTER → 2024-08-19 08:11 | Outpatient (BNVA) | payer MEDICARE, SELFPAY | PROVIDERS: PCP Internal Medicine; Visit Provider Internal Medicine | DX: E53.8 Deficiency of other specified B group vitamins (principal) | CPT/HCPCS: 96372; J3420 ==

== ENCOUNTER 2024-09-19 08:03 | Outpatient (REF) | payer MEDICARE, SELFPAY ==
--- OUTSIDE RECORDS SUMMARY | 2024-09-19 08:06 | XMS_ITS | Patient Health Record ---
Author Organization [facility] Address [address] [place] [address] Care Team Providers Care Sweeper Driver Name Role Phone Po Tae FERRER Primary Care Provider Neymar Sanders [phone] Allergies Allergen (clinical drug ingredient) Drug/Non Drug Allergy documented on EMR Reaction Allergy Type Onset Date Status tetracycline Tetracycline HCl Unknown Drug Allergy Active Darvon Unknown Drug Allergy Active Results Component Value Reference Range Notes Complete Blood Count Auto Di ff Reviewed date:09/24/2023 06:59:11 PM Interpretation: Performing Lab:[facility], [address] [place] [phone] Notes/Report: White Blood Count 5.6 4.8-10.8 X10*3/uL [...] 0.0-0.2 /100WBC Neutrophils Absolute Auto 4.0 2.0-8.3 x10*3/uL Imm Gran Abs Auto 0.03 0.00-0.03 X10*3/uL Lymphocytes Absolute Auto 0.8 1.2-4.9 X10*3/uL Monocytes Absolute Auto 0.6 0.1-1.2 X10*3/uL Eosinophils Absolute Auto 0.1 0.0-0.4 X10*3/uL Basophils Absolute Auto 0.1 0.0-0.2 X10*3/uL NRBC Abs Auto 0.000 0.0-0.012 X10*3/uL Liver Panel Reviewed date:09/24/2023 06:57:37 PM Interpretation: Performing Lab:[address] [phone] Notes/Report: Bilirubin Total 0.4 0.0-1.0 mg/dL Bilirubin Direct 0.2 0.0-0.5 mg/dL Aspartate Amino Transferase 19 5-31 U/L Alanine Aminotransferase 16 0-31 U/L Total Protein 7.4 6.5-8.0 g/dL Albumin Level 4.1 3.5-5.0 g/dL Alkaline Phosphatase 112 39-117 U/L Leukocytes Stool Qualitative Reviewed date:10/08/2023 12:22:24 PM Interpretation: Performing Lab:[address] [phone] Notes/Report: Leukocytes Stool Qualitative NEGATIVE NEGATIVE Calprotectin, Fecal Reviewed date:10/23/2023 06:04:34 PM Interpretation: Performing Lab:[address] [address] Notes/Report: Calprotectin, Fecal 14 Reference Range: <50 [...] borderline values. THIS TEST WAS PERFORMED AT: [facility] [address] [place] [address] VICTORIANO PATEL MD,PHD,[place] CDiff Gene PCR Reviewed date:10/14/2023 11:18:35 PM Interpretation: Performing Lab:[address] [address] Notes/Report: CDiff Gene PCR NEGATIVE Negative If C. difficile strongly suspected despite one negative test, a second test may be sent vs. empiric treatment for C. difficile infection. GI PANEL Reviewed date:10/10/2023 01:57:53 PM Interpretation: Performing Lab:[address] [phone] Notes/Report: Campylobacter Not Detected Not Detect. Plesiomonas [...] is performed by Multiplexed PCR, utilizing the Giv.to Array. Complete Blood Count Auto Di ff Reviewed date:10/23/2023 06:03:13 PM Interpretation: Performing Lab:[facility], [address] [place] [phone] Notes/Report: White Blood Count 4.5 4.8-10.8 X10*3/uL [...] 0.0-0.2 /100WBC Neutrophils Absolute Auto 3.0 2.0-8.3 x10*3/uL Imm Gran Abs Auto 0.01 0.00-0.03 X10*3/uL Lymphocytes Absolute Auto 0.8 1.2-4.9 X10*3/uL Monocytes Absolute Auto 0.4 0.1-1.2 X10*3/uL Eosinophils Absolute Auto 0.2 0.0-0.4 X10*3/uL Basophils Absolute Auto 0.1 0.0-0.2 X10*3/uL NRBC Abs Auto 0.000 0.0-0.012 X10*3/uL Comprehensive Met. Panel Reviewed date:10/23/2023 06:01:42 PM Interpretation: Performing Lab:[facility], [address] [place] [phone] Notes/Report: Sodium 145 135-145 mmol/L Potassium 3.9 3.3-5.1 mmol/L Chloride 110 96-108 mmol/L Carbon Dioxide 28 22-29 mmol/L Anion Gap 11 12-20 Blood Urea Nitrogen 7 9-16 mg/dL Creatinine 0.70 0.5-1.4 mg/dL Estimated Glomerular Filt Rate > 60 NOTE: For -[place] individuals, multiply the result by 1.210. Chronic [...] Panel Reviewed date:10/23/2023 06:01:25 PM Interpretation: Performing Lab:[facility], [address] [place] [phone] Notes/Report: Bilirubin Total 0.5 0.0-1.0 mg/dL Bilirubin Direct 0.2 0.0-0.5 mg/dL Aspartate Amino Transferase 22 5-31 U/L Alanine Aminotransferase 16 0-31 U/L Total Protein 6.8 6.5-8.0 g/dL Albumin Level 4.0 3.5-5.0 g/dL Alkaline Phosphatase 90 39-117 U/L Lipid Panel Reviewed date:10/23/2023 06:03:22 PM Interpretation: Performing Lab:[facility], [address] [place] [phone] Notes/Report: Triglycerides 63 <150 mg/dL Desirable Triglyceride: [...] Folate Reviewed date:10/23/2023 05:59:10 PM Interpretation: Performing Lab:[facility], [address] [place] [phone] Notes/Report: Vitamin B12 > 2000 200-900 pg/mL NORMAL 200-900 PG/ML INDETERMINATE 160-199 PG/ML DEFICIENT < 160 PG/ML Folate 10.6 > or = 4.0 ng/mL Reference Values: > or = 4.0 ng/mL < 4.0 ng/mL suggests folate deficiency Methotrexate, aminopterin and folinic acid (leucovorin) are chemotherapeutic agents whose molecular structures are similar to folate; therefore, the Front Sight Attacher folate assay cannot be used for patients using these drugs. Vitamin D 25-OH Total Reviewed date:10/23/2023 06:04:47 PM Interpretation: Performing Lab:[facility], [address] [place] [phone] Notes/Report: Vitamin D 25-OH Total 22.6 >30 [...] Thyroxine) Reviewed date:10/23/2023 06:07:28 PM Interpretation: Performing Lab:[facility], [address] [place] [phone] Notes/Report: Free T4 (Free Thyroxine) 0.84 0.71-1.85 ng/dL Thyroid Stimulating Hormone Reviewed date:10/23/2023 06:07:47 PM Interpretation: Performing Lab:[facility], [address] [place] [phone] Notes/Report: Thyroid Stimulating Hormone 0.95 0.32-4.0 uIU/mL TSH 3rd Generation ([facility]) Hemoglobin A1c Reviewed date:10/23/2023 06:01:06 PM Interpretation: Performing Lab:[facility], [address] [place] [phone] Notes/Report: Hemoglobin A1c % 5.9 <6.0 % [...] average glucose, using the formula of the C1I-Mdxzaou Average Glucose study (ADAG), Diabetes Care, Vol.31,#8, Dec. 2007 UA ClnCatch+Micro w/rflx Cul t Reviewed date:10/26/2023 07:12:04 PM Interpretation: Performing Lab:[facility], [address] [place] [phone] Notes/Report: Urine, Clean Catch Color Urine Yellow Appearance Urine Clear PH 5.5 5.0-9.0 Glucose Urine UA Negative Negative mg/dL Urine Blood Moderate (2+) Negative Specific [place] - Urine <= 1.005 1.005-1.025 Urine Protein Negative Neg-Trace mg/dL Urine Ketones Negative Negative mg/dL Nitrite Urine Negative Negative Leukocyte Esterase Urine Trace Negative RBC Urine 0-2 0-2 /HPF WBC Urine 0-5 0-5 /HPF Squamous Epithelial Cell Urine 0-2 0-2 /HPF Bacteria Urine None Seen None Seen Hyaline Casts Urine 0-2 0-2 /LPF Glucose, Whole Blood Reviewed date:10/28/2023 05:51:13 PM Interpretation: Performing Lab:[facility], [address] [place] [phone] Notes/Report: Glucose, Whole Blood 77 60-115 mg/dL METER # : [id number] Pathology Reviewed date:11/07/2023 10:08:08 PM Interpretation: Performing Lab:[facility], [address] [place] [phone] Notes/Report: Name: VedaVivian A Age/Sex: 68/F [facility] 1955 [id number]#: [id number] Attend Dr: Neymar Sauer Re10/28/23 Status: [facility] Location: [facility] Disch: SPEC : [id number] RECD: 10/28/23-1320 STATUS: BARRETT CABRERA NUM: [id number] [place]A: 10/28/23-[address] [facility] [address]: Neymar Sauer ENTERED: 10/28/23-1327 SP TYPE: Surgical OTHR DR: Tae Duarte MD ORDERED: HE Stain/12, Gross Micro L4/4 Diagnosis A. Colon, at 60 cm, distal toe ileocolonic anastomosis, biopsy: Colonic mucosa with lymphoid aggregates and mild crypt distortion, otherwise no specific change; no colitis, granulomas or dysplasia. B. Colon, descending, biopsy: Colonic mucosa with lymphoid aggregates and no specific change; no colitis, granulomas or dysplasia. C. Colon, sigmoid, biopsy: Colonic mucosa with lymphoid aggregates and no specific change; no colitis, granulomas or dysplasia. D. Colon, rectum, biopsy: Colonic mucosa with minimal active colitis/proctitis with mucosal microgranulomas; negative for dysplasia (see comment). Comment: (D): Appearances are compatible with the history of chronic inflammatory bowel disease. Clinical History Pre-Op Dx: Reflux, abdominal pain, Crohn's disease, and screening Post-Op Dx: Hiatal hernia, hx of Crohn's disease Microscopic Description Microscopic sections reviewed. Material Received A. Colon at 60 cm distal to ileocolonic anastomosis and tissue B. Descending colon C. Sigmoid colon D. Rectum Gross Description Received in 4 parts. Part A: Received in formalin labeled ?colon at 60 cm? are 7 pieces of tovar tissue measuring from 0.2-0.4 cm, all submitted in cassette labeled A. Part B: Received in formalin labeled ?descending colon? are 6 pieces of tovar tissue measuring from 0.1-0.5 cm, all submitted in cassette labeled B. CONTINUED ON NEXT PAGE Name: Vivian Mccollum Jovanny Age/Sex: 68/F : 1955 [id number]#: [id number] Attend Dr: Neymar Sauer Re10/28/23 Status: [facility] Location: [facility] Disch: SPEC : [id number] RECD: 10/28/23 STATUS: BARRETT CABRERA NUM: [id number] [place]: 10/28/23-[address] [facility] [address]: Neymar Sauer ENTERED: 10/28/23 SP TYPE: Surgical OTHR DR: Tae Duarte MD ORDERED: HE Stain/12, Gross Micro L4/4 Gross Description (Continued) Part C: Received in formalin labeled ?sigmoid colon? are 4 pieces of tovar tissue measuring from 0.1-1.0 cm, all submitted in cassette labeled C. Part D: Received in formalin labeled ?rectum? are 3 pieces of tovar tissue measuring 0.2-0.7 cm, all submitted in cassette labeled D. FM Copies To: Tae Duarte MD [address] [place] [address] [address] [place] [address] Neymar Sauer [address] [place] [address] [id number] [place] [id number] Signed (signature on file) Joie Johnson 10/29/232 END OF REPORT Glucose, Whole Blood Reviewed date:10/28/2023 05:51:06 PM Interpretation: Performing Lab:[facility], [address] [place] [phone] Notes/Report: Glucose, Whole Blood 112 60-115 mg/dL METER # : [id number] Complete Blood Count Auto Di ff Reviewed date:11/23/2023 10:23:49 PM Interpretation: Performing Lab:[address] [phone] Notes/Report: White Blood Count 4.8 4.8-10.8 X10*3/uL [...] 0.0-0.2 /100WBC Neutrophils Absolute Auto 3.3 2.0-8.3 x10*3/uL Imm Gran Abs Auto 0.01 0.00-0.03 X10*3/uL Lymphocytes Absolute Auto 0.7 1.2-4.9 X10*3/uL Monocytes Absolute Auto 0.4 0.1-1.2 X10*3/uL Eosinophils Absolute Auto 0.3 0.0-0.4 X10*3/uL Basophils Absolute Auto 0.1 0.0-0.2 X10*3/uL NRBC Abs Auto 0.000 0.0-0.012 X10*3/uL Liver Panel Reviewed date:11/23/2023 10:24:01 PM Interpretation: Performing Lab:[facility], [address] [place] [phone] Notes/Report: Bilirubin Total 0.5 0.0-1.0 mg/dL Bilirubin Direct 0.2 0.0-0.5 mg/dL Aspartate Amino Transferase 24 5-31 U/L Alanine Aminotransferase 15 0-31 U/L Total Protein 6.8 6.5-8.0 g/dL Albumin Level 4.0 3.5-5.0 g/dL Alkaline Phosphatase 93 39-117 U/L Complete Blood Count Auto Di ff Reviewed date:12/28/2023 07:00:26 PM Interpretation: Performing Lab:[facility], [address] [place] [address] Notes/Report: White Blood Count 5.2 4.8-10.8 X10*3/uL [...] 0.0-0.2 /100WBC Neutrophils Absolute Auto 3.7 2.0-8.3 x10*3/uL Imm Gran Abs Auto 0.02 0.00-0.03 X10*3/uL Lymphocytes Absolute Auto 0.7 1.2-4.9 X10*3/uL Monocytes Absolute Auto 0.5 0.1-1.2 X10*3/uL Eosinophils Absolute Auto 0.3 0.0-0.4 X10*3/uL Basophils Absolute Auto 0.1 0.0-0.2 X10*3/uL NRBC Abs Auto 0.000 0.0-0.012 X10*3/uL Liver Panel Reviewed date:12/25/2023 07:24:09 PM Interpretation: Performing Lab:[facility], [address] [place] [phone] Notes/Report: Bilirubin Total 0.3 0.0-1.0 mg/dL Bilirubin Direct 0.1 0.0-0.5 mg/dL Aspartate Amino Transferase 19 5-31 U/L Alanine Aminotransferase 11 0-31 U/L Total Protein 6.9 6.5-8.0 g/dL Albumin Level 4.1 3.5-5.0 g/dL Alkaline Phosphatase 86 39-117 U/L Vitamin B12 Reviewed date:12/25/2023 07:24:18 PM Interpretation: Performing Lab:[facility], [address] [place] [phone] Notes/Report: Vitamin B12 432 200-900 pg/mL NORMAL 200-900 PG/ML INDETERMINATE 160-199 PG/ML DEFICIENT < 160 PG/ML Liver Panel Reviewed date:01/23/2024 10:45:45 PM Interpretation: Performing Lab:[facility], [address] [place] [phone] Notes/Report: Bilirubin Total 0.5 0.0-1.0 mg/dL Bilirubin Direct 0.2 0.0-0.5 mg/dL Aspartate Amino Transferase 23 5-31 U/L Alanine Aminotransferase 15 0-31 U/L Total Protein 6.6 6.5-8.0 g/dL Albumin Level 4.0 3.5-5.0 g/dL Alkaline Phosphatase 83 39-117 U/L Liver Panel Reviewed date:02/22/2024 11:20:19 PM Interpretation: Performing Lab:[facility], [address] [place] [phone] Notes/Report: Bilirubin Total 0.5 0.0-1.0 mg/dL Bilirubin Direct 0.2 0.0-0.5 mg/dL Aspartate Amino Transferase 22 5-31 U/L Alanine Aminotransferase 16 0-31 U/L Total Protein 6.7 6.5-8.0 g/dL Albumin Level 4.0 3.5-5.0 g/dL Alkaline Phosphatase 86 39-117 U/L Complete Blood Count Auto Di ff Reviewed date:03/23/2024 06:59:11 PM Interpretation: Performing Lab:[address] [phone] Notes/Report: White Blood Count 3.6 4.8-10.8 X10*3/uL [...] 0.0-0.2 /100WBC Neutrophils Absolute Auto 1.9 2.0-8.3 x10*3/uL Imm Gran Abs Auto 0.01 0.00-0.03 X10*3/uL Lymphocytes Absolute Auto 0.8 1.2-4.9 X10*3/uL Monocytes Absolute Auto 0.5 0.1-1.2 X10*3/uL Eosinophils Absolute Auto 0.3 0.0-0.4 X10*3/uL Basophils Absolute Auto 0.1 0.0-0.2 X10*3/uL NRBC Abs Auto 0.000 0.0-0.012 X10*3/uL Liver Panel Reviewed date:03/23/2024 06:59:35 PM Interpretation: Performing Lab:[facility], [address] [place] [phone] Notes/Report: Bilirubin Total 0.3 0.0-1.0 mg/dL Bilirubin Direct 0.1 0.0-0.5 mg/dL Aspartate Amino Transferase 27 5-31 U/L Alanine Aminotransferase 17 0-31 U/L Total Protein 6.6 6.5-8.0 g/dL Albumin Level 4.0 3.5-5.0 g/dL Alkaline Phosphatase 91 39-117 U/L MAMMOGRAM DIGITAL BILATERAL SCREEN Reviewed date:03/24/2024 08:32:51 AM Interpretation:Normal Performing Lab: Notes/Report: Normal Complete Blood Count Auto Di ff Reviewed date:04/23/2024 09:32:52 AM Interpretation: Performing Lab:[facility], [address] [place] [phone] Notes/Report: White Blood Count 5.5 4.8-10.8 X10*3/uL [...] 0.0-0.2 /100WBC Neutrophils Absolute Auto 3.9 2.0-8.3 x10*3/uL Imm Gran Abs Auto 0.02 0.00-0.03 X10*3/uL Lymphocytes Absolute Auto 0.8 1.2-4.9 X10*3/uL Monocytes Absolute Auto 0.4 0.1-1.2 X10*3/uL Eosinophils Absolute Auto 0.3 0.0-0.4 X10*3/uL Basophils Absolute Auto 0.1 0.0-0.2 X10*3/uL NRBC Abs Auto 0.000 0.0-0.012 X10*3/uL Liver Panel Reviewed date:04/23/2024 09:33:16 AM Interpretation: Performing Lab:[facility], [address] [place] [phone] Notes/Report: Bilirubin Total 0.4 0.0-1.0 mg/dL Bilirubin Direct 0.1 0.0-0.5 mg/dL Aspartate Amino Transferase 23 5-31 U/L Alanine Aminotransferase 16 0-31 U/L Total Protein 7.1 6.5-8.0 g/dL Albumin Level 4.3 3.5-5.0 g/dL Alkaline Phosphatase 86 39-117 U/L Complete Blood Count Auto Di ff Reviewed date:05/20/2024 04:02:01 PM Interpretation: Performing Lab:[facility], [address] [place] [phone] Notes/Report: White Blood Count 4.9 4.8-10.8 X10*3/uL [...] 0.0-0.2 /100WBC Neutrophils Absolute Auto 3.2 2.0-8.3 x10*3/uL Imm Gran Abs Auto 0.01 0.00-0.03 X10*3/uL Lymphocytes Absolute Auto 0.8 1.2-4.9 X10*3/uL Monocytes Absolute Auto 0.5 0.1-1.2 X10*3/uL Eosinophils Absolute Auto 0.2 0.0-0.4 X10*3/uL Basophils Absolute Auto 0.1 0.0-0.2 X10*3/uL NRBC Abs Auto 0.000 0.0-0.012 X10*3/uL Liver Panel Reviewed date:05/20/2024 04:02:33 PM Interpretation: Performing Lab:[facility], [address] [place] [phone] Notes/Report: Bilirubin Total 0.4 0.0-1.0 mg/dL Bilirubin Direct 0.1 0.0-0.5 mg/dL Aspartate Amino Transferase 29 5-31 U/L Alanine Aminotransferase 19 0-31 U/L Total Protein 7.0 6.5-8.0 g/dL Albumin Level 4.1 3.5-5.0 g/dL Alkaline Phosphatase 82 39-117 U/L Complete Blood Count Auto Di ff Reviewed date:06/21/2024 10:33:11 AM Interpretation: Performing Lab:[facility], [address] [place] [phone] Notes/Report: White Blood Count 4.2 4.8-10.8 X10*3/uL [...] 0.0-0.2 /100WBC Neutrophils Absolute Auto 2.6 2.0-8.3 x10*3/uL Imm Gran Abs Auto 0.01 0.00-0.03 X10*3/uL Lymphocytes Absolute Auto 0.8 1.2-4.9 X10*3/uL Monocytes Absolute Auto 0.5 0.1-1.2 X10*3/uL Eosinophils Absolute Auto 0.3 0.0-0.4 X10*3/uL Basophils Absolute Auto 0.1 0.0-0.2 X10*3/uL NRBC Abs Auto 0.000 0.0-0.012 X10*3/uL Liver Panel Reviewed date:06/21/2024 10:33:28 AM Interpretation: Performing Lab:[facility], [address] [place] [phone] Notes/Report: Bilirubin Total 0.4 0.0-1.0 mg/dL Bilirubin Direct 0.1 0.0-0.5 mg/dL Aspartate Amino Transferase 24 5-31 U/L Alanine Aminotransferase 24 0-31 U/L Total Protein 7.3 6.5-8.0 g/dL Albumin Level 4.2 3.5-5.0 g/dL Alkaline Phosphatase 87 39-117 U/L Complete Blood Count Auto Di ff Reviewed date:07/22/2024 05:28:16 PM Interpretation: Performing Lab:[facility], [address] [place] [phone] Notes/Report: White Blood Count 5.1 4.8-10.8 X10*3/uL Red Blood Count 3.66 4.20-5.50 X10*6/uL Hemoglobin 12.8 12.0-16.0 g/dl Hematocrit 36.9 37.0-47.0 % Mean Corpuscular Volume 100.8 80.0-98.0 fL Mean Corpuscular Hemoglobin 35.0 27.0-33.0 pg Mean Corpuscular HGB Conc 34.7 31.0-35.0 g/dl Red Cell Distribution Width 13.8 11.0-16.0 % Platelet Count 343 160-400 X10*3/uL Mean Platelet Volume 10.1 9.4-12.3 fL Neutrophils Percent Auto 68.6 45-73 % Imm Gran Pct Auto 0.4 0.0-0.4 % Lymphocytes Percent Auto 15.5 20-40 % Monocytes Percent Auto 10.4 2-11 % Eosinophils Percent Auto 3.9 0-4 % Basophils Percent Auto 1.2 0-2 % NRBC Pct Auto 0.0 0.0-0.2 /100WBC Neutrophils Absolute Auto 3.5 2.0-8.3 x10*3/uL Imm Gran Abs Auto 0.02 0.00-0.03 X10*3/uL Lymphocytes Absolute Auto 0.8 1.2-4.9 X10*3/uL Monocytes Absolute Auto 0.5 0.1-1.2 X10*3/uL Eosinophils Absolute Auto 0.2 0.0-0.4 X10*3/uL Basophils Absolute Auto 0.1 0.0-0.2 X10*3/uL NRBC Abs Auto 0.000 0.0-0.012 X10*3/uL Comprehensive Met. Panel Reviewed date:07/26/2024 06:49:01 PM Interpretation: Performing Lab:[facility], [address] [place] [phone] Notes/Report: Sodium 139 135-145 mmol/L Potassium 3.9 3.3-5.1 mmol/L Chloride 108 96-108 mmol/L Carbon Dioxide 25 22-29 mmol/L Anion Gap 10 12-20 Blood Urea Nitrogen 7 9-16 mg/dL Creatinine 0.55 0.5-1.4 mg/dL Estimated Glomerular Filt Rate > 60 Chronic Kidney Disease: Estimated GFR < 60 mL/min/1.73m2 Severe Kidney Disease: Estimated GFR < 15 mL/min/1.73m2 Glucose Random 110 60-115 mg/dL Calcium 9.3 8.4-10.2 mg/dL Bilirubin Total 0.4 0.0-1.0 mg/dL Aspartate Amino Transferase 28 5-31 U/L Alanine Aminotransferase 23 0-31 U/L Total Protein 7.0 6.5-8.0 g/dL Albumin Level 3.9 3.5-5.0 g/dL Alkaline Phosphatase 91 39-117 U/L Liver Panel Reviewed date:07/26/2024 06:49:13 PM Interpretation: Performing Lab:[facility], [address] [place] [phone] Notes/Report: Bilirubin Direct 0.2 0.0-0.5 mg/dL IRON PROFILE Reviewed date:07/26/2024 06:49:29 PM Interpretation: Performing Lab:[facility], [address] [place] [phone] Notes/Report: Iron 94 30-160 mcg/dL Total Iron Binding Capacity 257 228-428 mcg/dL Percent Iron Saturation 37 15-50 % Unsaturated Iron Binding 163 Lipid Panel Reviewed date:07/26/2024 06:49:37 PM Interpretation: Performing Lab:[facility], [address] [place] [phone] Notes/Report: Triglycerides 72 <150 mg/dL Desirable Triglyceride: less than 150 mg/dL Borderline High Triglyceride 150-199 mg/dL High Triglyceride: 200-499 mg/dL Very High Triglyceride: greater than or equal to 5OO mg/dL Cholesterol 143 <200 mg/dL Desirable Cholesterol: less than 200 mg/dL Borderline High Cholesterol: 200-239 mg/dL High Cholesterol: greater than 239 mg/dL LDL Cholesterol Calculated 48 <100 mg/dL Desirable LDL: less than 100 mg/dL Near Optimal/Above Optimal LDL: 110-129 mg/dL Borderline High LDL: 130-159 mg/dL High LDL: 160-189 mg/dL Very High LDL: greater than or equal to 190 mg/dL HDL Cholesterol 81 >40 mg/dL Desirable HDL: greater than 40 mg/dL Note: This HDL assay may give artificially low results in patients with liver disease. Thyroid Stimulating Hormone Reviewed date:07/26/2024 06:49:57 PM Interpretation: Performing Lab:[facility], [address] [place] [phone] Notes/Report: Thyroid Stimulating Hormone 1.50 0.32-4.0 uIU/mL TSH 3rd Generation ([facility]) Reason For Referral No Information Medications Medication SIG (Take, Route, Frequency, Duration) [...] 20 MG take 1 capsule by mo [facility] once daily Orally Once a day Active Dicyclomine HCl 10 MG TAKE 1 TO 2 CAPSUL ES BY MOUTH 4 TIMES A DAY NEEDED FOR ABDOMINAL CRAMPS OR DISCOMFORT FOR 90 DAYS for 90 Active Pentasa 500 MG TAKE 2 CAPSULES BY [facility] 4 TIMES A DAY 90 DAYS for 90 Active Immunizations Vaccine Route Administration Date Status Comme nts Influenza Unknown 02/01/2018 Administered Influenza Unknown 01/30/2019 Administered Influenza Unknown 01/31/2020 Administered Influenza Unknown 03/01/2021 Administered Influenza Unknown 04/18/2022 Administered Influenza Unknown 03/10/2023 Administered Pneumococcal Unknown 03/01/2023 Administered Social History Tobacco Use: Social History Observation [...] t Section Notes: Smokes; 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; 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; 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; 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; 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; 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; 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; 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; 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; 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; 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; 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; 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; 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; 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; 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; 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; 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; 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; 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; no sig alcohol Problems Problem Type SNOMED Code ICD Code Onset Dates Problem Status W/U Status Risk Notes Problem 156652102 Gastro-esophagea l reflux disease without esophagitis (K21.9) Active confirmed Problem 897377311 Encounter for screening for malignant neoplasm of colon (Z12.11) Active confirmed Problem 917085306 History of adenomatous polyp of colon (Z86.010) Active confirmed Problem 63063593 Weight loss (R63.4) Active confirmed Problem 69577826 Crohn's disease of both small and large intestine without complication (K50.80) Active confirmed Problem 66775577 Crohn's disease of both small and large intestine without complications (K50.80) Active confirmed Problem Diverticular disease of colon (791626379) Diverticulosis of large intestine without perforation or abscess without bleeding (K57.30) Active confirmed Problem 017583995 Irritable bowel syndrome with diarrhea (K58.0) Active confirmed Problem 5038903 Melena (K92.1) Active confirmed Problem 050398925 Encounter for therapeutic drug level monitoring (Z51.81) Active confirmed Problem History of gastrointestinal tract bypass (567837215) Intestinal bypass and anastomosis status (Z98.0) Active confirmed Problem 62610370 Crohns disease o f both small and large intestine without complication (K50.80) Active confirmed Problem 578560478 History of colon polyps (Z86.010) Active confirmed Problem 810655111 Gallstones (K80.20) Active confirmed Problem Gastroesophageal reflux disease (611644445) GERD (gastroesophageal reflux disease) (K21.9) Active confirmed Problem 193931955 Abdominal pain, generalized (R10.84) Active confirmed Problem 05643866 Diarrhea, unspecified type (R19.7) Active confirmed Problem 759038110 Therapeutic drug monitoring (Z51.81) Active confirmed Problem 38700143 Crohn''s disease of both small and large intestine without complication (K50.80) Active confirmed Problem 92820955 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 Vital Signs Blood pressure diastolic 76 mm Hg 03/22/2024 Height 65 in 03/22/2024 Blood pressure systolic 124 mm Hg 03/22/2024 Weight 121 lbs 03/22/2024 BMI 20.13 kg/m2 03/22/2024 Encounters Encounter Location Date Provider Diagnosis [facility] Outpatient [address] [place] [address] [id number] 10/28/2023 Neymar Sauer Encounter for screen ing colonoscopy Z12.11 ; Crohn''s disease of both small and large intestine without complication K50.80 ; Intestinal bypass and anastomosis status Z98.0 ; Diverticulosis of large intestine without perforation or abscess without bleeding K57.30 ; Other hemorrhoids K64.8 ; Gastro-esophageal reflux disease without esophagitis K21.9 ; Hiatal hernia K44.9 and Abdominal pain R10.9 [facility] [address] [place] [address] 03/22/2024 Neymar aSuer GERD (gastroesophage al reflux disease) K21.9 ; Crohn's disease of both small and large intestine without complications K50.80 and Bile salt-induced diarrhea K90.89 [facility] [address] [address] 11/03/2023 Neymar Sauer [facility] [address] [place] [address] 12/18/2023 Neymar Sauer [facility] [address] [place] [address] 12/21/2023 Neymar Sauer [facility] [address] [place] [address] 02/22/2024 Neymar Sauer Crohn''s disease of both small and large intestine without complication K50.80 Assessments Encounter Date Diagnosis (ICD Code) Assessment Notes Treatment Notes Treatment Clinical Notes Section Notes 10/28/2023 Encounter for screening colonoscopy (ICD-10 - Z12.11) 10/28/2023 Crohn''s disease of both small and large intestine without complication (ICD-10 - K50.80) 03/22/2024 Crohn's disease of both small and [...] keep you advised of her progress. 03/22/2024 GERD (gastroesophageal reflux disease) (ICD-10 - [...] to keep you advised of her progress. 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 10/28/2023 Diverticulosis of large intestine without perforation or abscess without bleeding (ICD-10 - K57.30) 10/28/2023 Other hemorrhoids (ICD-10 - K64.8) 10/28/2023 Gastro-esophageal reflux disease without esophagitis (ICD-10 - K21.9) 10/28/2023 Hiatal hernia (ICD-10 - K44.9) 10/28/2023 Abdominal pain (ICD-10 - R10.9) Plan Of Treatment Pending Test Test Name Order Date LIVER PROFILE 02/22/2024 LIVER PROFILE 10/26/2018 LIVER PROFILE 03/03/2012 LIVER PROFILE 08/08/2021 LIVER PROFILE 07/18/2016 LIVER PROFILE 01/03/2014 LIVER PROFILE 06/02/2018 LIVER PROFILE 12/22/2022 LIVER PROFILE 06/29/2017 LIVER PROFILE 06/04/2021 LIVER PROFILE 07/30/2020 CRP 02/28/2021 CRP 03/04/2022 CBC w DIFF 06/04/2021 CBC w DIFF 07/30/2020 CBC w DIFF 07/31/2014 CBC w DIFF 02/22/2024 CBC w DIFF 10/26/2018 CBC w DIFF 03/03/2012 CBC w DIFF 03/04/2022 CBC w DIFF 08/08/2021 CBC w DIFF 07/18/2016 CBC w DIFF 06/23/2019 CBC w DIFF 01/03/2014 CBC w DIFF 06/02/2018 CBC w DIFF 12/22/2022 CBC w DIFF 06/29/2017 SED RATE (ESR) 02/28/2021 SED RATE (ESR) 03/04/2022 STOOL WBC 09/17/2023 STOOL WBC 03/04/2022 C DIFFICILE RFLX PCR 03/04/2022 C DIFFICILE RFLX PCR 09/17/2023 C DIFFICILE RFLX PCR 02/28/2021 Calprotectin, Fecal 09/17/2023 GI PANEL 09/17/2023 Future Test Test Name Order Date COLONOSCOPY 02/02/2013 COLONOSCOPY 06/02/2018 UPPER GI ENDOSCOPY 02/21/2020 UPPER GI ENDOSCOPY 09/17/2023 COLONOSCOPY 09/17/2023 Next Appt Details Provider Name:Neymar Mckeon Sauer , 09/27/2024 10:50:00 AM, [address] [place] [address], [place] [address], [place], [address], Insurance Providers Payer Name Payer Address Payer Phone Subscriber Number Group Number Insured Name Patient Relationship to Insured Coverage Start Date Coverage End Date MEDICARE OF [place] [address] [place] [address] [id number] VIVIAN MCCOLLUM Self - patient is the insured MED[employer] ATTN CLAIMS [address] [place] [address] [id number] VIVIAN MCCOLLUM Self - patient is the insured Medical (General) History Medical History History ICD Code Crohn's disease of SI and co sea-diagnosed in the early 1979's and had a right ileocolectomy with Dr. Lima in approx. 1989- colonoscopy in 06/2010 with mild ileocolitis [...] the area of the femoral neck Denies CO,DM,CVA,Lung disease,renal dise ase Anxiety GERD--EGD in 04/2007 [...] November 2012 Removed basal call carcinoma from restorationist Dec 2012 Lap [facility]-Dr. Leahy 04/17/2015 Squamous cell cancer on scalp and forehe ad 2017 She is scheduled for a hyste roscopy and D&C with Dr. Carcamo for 03/14/2022 D&C polyp in uterus benign 2021 Ganglion cyst on wrist removed 12/2022
--- OUTSIDE RECORDS SUMMARY | 2024-09-19 08:06 | XMS_ITS ---
Author Organization [facility] Address [address] [place] [address] Care Team Providers Care Donor Services Manager Name Role Phone Tae Duarte MD Primary Care Provider Neymar Sanders [phone] REASON FOR VISIT need new lab order faxed Encounters Encounter Location Date Provider Diagnosis [facility] [address] [place] [address] 02/22/2024 Neymar Sauer Crohn''s disease of both [...] Name:Neymar Sauer , 09/27/2024 10:50:00 AM, [address], [address], [place], [address], Progress Notes * EBEN BUNN ADOB:01/1955 (68 yo F)Acc No.[id number]:02/22/2024 Patient:?EBEN BUNN :1955???Age:68 Y???Sex:Female Address:[address] [place] [address] Subjective: * Chief Complaints: * ???Need new lab order faxed * Medical History:? * Surgical History:? * Hospitalization/Major Diagno stic Procedure:? * Medications:? Objective: Assessment: * Assessment: 1.?Crohn''s disease of both small and large intestine without complication - K50.80 (Primary)? Plan: * Treatment: ?LAB: CBC w DIFF* Monthly * Procedure Codes:? * true * Date:? Generated for Ct adame/Dexter/eTransmitting on:?09/19/2024 08:06 AM EDT
--- OUTSIDE RECORDS SUMMARY | 2024-09-19 08:06 | XMS_ITS ---
Author Organization [facility] Address [address] [place] [address] Care Team Providers Care Digital Production Artist Name Role Phone Tae Duarte MD Primary Care Provider Neymar Sanders [phone] REASON FOR VISIT called pharmacy Encounters Encounter Location Date Provider Diagnosis [facility] [address] [place] [address] 12/21/2023 Neymar Sauer Plan Of Treatment Next Appt Details Provider Name:Neymar Sauer , 09/27/2024 10:50:00 AM, [address] [facility], [address], [place], [address], Progress Notes * EBEN BUNN ADOB:01/1955 (68 yo F)Acc No.[id number]:12/21/2023 Patient:?EBEN BUNN :1955???Age:68 Y???Sex:Female Address:[place] [address] * true * Date:? Generated for Printi ng/Faericg/eTransmitting on:?09/19/2024 08:06 AM EDT
[2024-09-19 08:18] LABS: MANUAL DIFF FLAG NO
[2024-09-19 08:25] LABS: Basophils Absolute Auto 0.1 X10*3/uL (0.0-0.2); Basophils Percent Auto 1.1 % (0-2); Eosinophils Absolute Auto 0.2 X10*3/uL (0.0-0.4); Eosinophils Percent Auto 5.3 % (0-4); Hematocrit 40.7 % (37.0-47.0); Hemoglobin 13.6 g/dl (12.0-16.0); Imm Gran Abs Auto 0.01 X10*3/uL (0.00-0.03); Imm Gran Pct Auto 0.2 % (0.0-0.4); Lymphocytes Absolute Auto 0.8 X10*3/uL (1.2-4.9); Lymphocytes Percent Auto 18.3 % (20-40); Mean Corpuscular HGB Conc 33.4 g/dl (31.0-35.0); Mean Corpuscular Hemoglobin 34.2 pg (27.0-33.0); Mean Corpuscular Volume 102.3 fL (80.0-98.0); Mean Platelet Volume 9.8 fL (9.4-12.3); Monocytes Absolute Auto 0.6 X10*3/uL (0.1-1.2); Monocytes Percent Auto 13.1 % (2-11); Neutrophils Absolute Auto 2.7 x10*3/uL (2.0-8.3); Platelet Count 264 X10*3/uL (160-400); Red Blood Count 3.98 X10*6/uL (4.20-5.50); Red Cell Distribution Width 13.6 % (11.0-16.0); White Blood Count 4.4 X10*3/uL (4.8-10.8)
[2024-09-19 09:01] LABS: Alanine Aminotransferase 19 U/L (0-31); Albumin Level 4.3 g/dL (3.5-5.0); Alkaline Phosphatase 82 U/L (39-117); Aspartate Amino Transferase 30 U/L (5-31); Bilirubin Direct 0.2 mg/dL (0.0-0.5); Bilirubin Total 0.5 mg/dL (0.0-1.0); Total Protein 6.9 g/dL (6.5-8.0)
== END 2024-09-19 08:04 | disposition home or self-care (01) ==
LOC: HO.LABR 08:03
PROVIDERS: PCP Internal Medicine; Visit Provider Internal Medicine
DX: K50.80 Crohn's disease of both small and large intestine without complications (principal)
CPT/HCPCS: 36415; 80076; 85025; 96372; J3420

== ENCOUNTER 2024-09-19 08:44 | Outpatient (AMB) | payer MEDICARE, SELFPAY ==
--- NOTE | 2024-09-19 08:47 | AM.OFFVISNUR ---
Intake Visit Reasons: B12 Shot Allergies Darvon Allergy (Intermediate, Verified 07/08/24 10:29) oral swelling Doxycycline Hyclate Allergy (Intermediate, Verified 07/08/24 10:29) diarrhea, severe diarrhea tetracycline [TETRACYCLINE] Allergy (Intermediate, Verified 07/08/24 10:29) Itching Office Meds cyanocobalamin (vitamin B-12) 1,000 mcg/mL injection solution Performing Provider: Tae Duarte MD [facility] Administered by: Remedios Baez RN on 09/19/24 08:47 Dose Route Admin Location Dispensed Lot Number Expiration Date NDC Pododermatologist 1,000 mcg IM 1 mL [id number] 04/30/25 Assessment & Plan Assessment & Plan Orders: Orders AMB Vitamin B12 Injection Patient Supplied Today E53.8 - Deficiency of other specified B group vitamins Medications: New cyanocobalamin (vitamin B-12) 1,000 mcg IM ONCE 1 mL 0RF E53.8 - Deficiency of other specified B group vitamins Coding
== END 2024-09-19 08:59 | disposition home or self-care (01) ==
LOC: HO.HMCH 08:44
PROVIDERS: PCP Internal Medicine; Visit Provider Internal Medicine
DX: E53.8 Deficiency of other specified B group vitamins (principal)

== ENCOUNTER 2024-10-06 09:46 | Outpatient (AMB) | payer MEDICARE, SELFPAY ==
[2024-10-06 09:48] VITALS: BP 128/80; PULSE 88; O2SAT 98; BMI 21.3
--- NOTE | 2024-10-06 09:48 | A.OFFPC_ITS ---
Vital Signs 10/06/24 09:48 Height 5 ft 5 in Weight 128 lb BMI 21.3 BP 128/80 Blood Pressure Location Lt brachial Position Sitting Pulse 88 Pulse Source Pulse Oximeter Pulse Oximetry (%) 98 Oxygen Delivery Method Room Air Intake Visit Reasons: 3M Follow Up Allergies Darvon Allergy (Intermediate, Verified 10/06/24 09:49) oral swelling Doxycycline Hyclate Allergy (Intermediate, Verified 10/06/24 09:49) diarrhea, severe diarrhea tetracycline [TETRACYCLINE] Allergy (Intermediate, Verified 10/06/24 09:49) Itching Medication List - Last Reconciled 10/06/24 by Tae Duarte MD albuterol sulfate 90 mcg/actuation 1 inh inhalation QID azathioprine 100 mg PO DAILY betamethasone dipropionate 0.05% 1 appl topical DAILY PRN buspirone 10 mg PO DAILY cholecalciferol (vitamin D3) 50 mcg PO DAILY 90 days cholestyramine (with sugar) 4 gram ea PO cyanocobalamin (vitamin B-12) 1,000 mcg IM Q4W 90 days dicyclomine 10 mg PO DAILY nitrofurantoin monohyd/m-cryst 100 mg (Macrobid) 100 mg PO Q12H 7 days omeprazole 20 mg PO DAILY pyridoxine (vitamin B6) 100 mg PO DAILY raloxifene 60 mg PO DAILY tramadol 50 mg PO DAILY 90 days Tobacco use date assessed: 10/06/24 Fall risk assessment: No Falls in past year Last assessed Fall Risk: 10/06/24 Dental Screening Dental Screen Date: 10/06/24 Did you have a dental visit in the last 12 months?: Yes Did you have a dental problem in the last 6 months where you did not have access to dental care?: No Was dental information given to patient?: Patient has dentist [facility] Medical History (Updated 10/06/24 @ 10:19 by Tae Duarte MD) Cellulitis and abscess of other specified site Osteoporosis Nicotine dependence, cigarettes, uncomplicated Breast cancer screening by mammogram Lip abscess Palpitations Flank pain Basal cell carcinoma Peptic ulcer disease Renal calculi Vitamin D deficiency Impaired glucose tolerance Anxiety and depression Anemia Asthma GERD (gastroesophageal reflux disease) Crohn's disease Surgical History History of tooth extraction History of surgical removal of ganglion cyst Hx of lithotripsy Hx of dilation and curettage Hx of cystoscopy History of hysteroscopy History of colonoscopy History of cholecystectomy Hx of appendectomy H/O tubal ligation History of lumpectomy of left breast S/P small bowel resection Social History Housing: House Alcohol intake: current Alcohol intake frequency: does not drink Patient Tobacco Use Status: Current everyday Tobacco user Tobacco use type: Cigarette Cigarette Packs Per Day: 1 Cigarettes Per Day: 15 Years Smoked: 50 Packs Per Year: 50 Packs per year/per ci.50 e-Cigarette/Vaping Use: Never Used Second Hand Smoke Exposure: Yes service: No Current occupational status: 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 1. Little interest or pleasure in doing things: not at all 2. Feeling down, depressed, or hopeless: not at all 3. Trouble falling or staying asleep, or sleeping too much: not at all 4. Feeling tired or having little energy: not at all 5. Poor appetite or overeating: not at all 6. Feeling bad about yourself - or that you are a failure or have let yourself or your family down: not at all 7. Trouble concentrating on things, such as reading the newspaper or watching television: not at all 8. Moving or speaking so slowly that other people could have noticed. Or the opposite - being so fidgety or restless that you have been moving around a lot more than usual: not at all 9. Thoughts that you would be better off or of hurting yourself in some way: not at all Total score: 0 Depression Screening Interpretation: Negative Depression Screening Done: Yes Source: Developed by Drs. Neymar Florez, Tan You and colleagues, with an educational colleen from [employer]. Thrive Questionnaire Date Thrive assessed: 07/08/24 MARLI-7 AMB Questionnaire MARLI-7 Date MARLI - 7 assessed: 07/08/24 Source: Developed by Drs. Neymar Florez, Tan You and colleagues, with an educational colleen from [employer]. Physical exam (Primary Care) Vital Signs: Last Vital Signs Pulse 88 10/06/24 09:48 BP 128/80 10/06/24 09:48 Pulse Ox 98 10/06/24 09:48 Oxygen Delivery Method Room Air 10/06/24 09:48 BMI result Body Mass Index 21.3 Tobacco/Smoking Status: Tobacco use Status Tobacco use date assessed 10/06/24 10/06/24 10:03 Patient Tobacco Use Status Current everyday Tobacco 10/06/24 09:50 Tobacco use type Cigarette 10/06/24 09:50 e-Cigarette/Vaping Use Never Used 10/06/24 09:50 PHQ-9: PHQ-9 Score PHQ-9: Total score 0 10/06/24 10:21 Depression Screening Interpretation: Negative Thrive Assessment: Date of Thrive Assessment Date Thrive assessed 07/08/24 10/06/24 09:50 Const General: alert; No acute distress Eyes Conjunctivae: conjunctivae normal Resp Auscultation: clear to auscultation bilaterally Cardio Rate: regular rate Rhythm: regular rhythm GI Inspection: Yes normal to inspection Extrem General: Yes normal to inspection and No edema Coding Level of Care Code Est Pt Level 4 (67410) Complex EM visit Add On G2211 Diagnoses Nicotine dependence, cigarettes, uncomplicated F17.210 Gastroesophageal reflux disease without esophagitis K21.9 Esophagitis presence: without esophagitis Impaired glucose tolerance R73.02 Generalized anxiety disorder F41.1 Osteoporosis M81.0 Assessment & Plan Assessment & Plan (1) Nicotine dependence, cigarettes, uncomplicated: Comment: (30+PYH) CT scan July 2024 Code(s): F17.210 - Nicotine dependence, cigarettes, uncomplicated Category: Medical Plan: Patient is strongly advised to stop smoking. Patient is in the lung cancer screening program (2) GERD (gastroesophageal reflux disease): Code(s): K21.9 - Gastro-esophageal reflux disease without esophagitis Category: Medical Qualifiers: Esophagitis presence: without esophagitis Qualified Code(s): K21.9 - Gastro-esophageal reflux disease without esophagitis Plan: Avoid the foods that causes that usually spicy foods, tomato products, juices, coffee, soda and foods that your sensitive to. After eating do not lie down, allow 3-4 hours before in lie down. And keep the head of bed above 30 degrees to avoid the acid from going up. Patient should stop smoking (3) Impaired glucose tolerance: Code(s): R73.02 - Impaired glucose tolerance (oral) Category: Medical Plan: Decrease the amount of carbohydrate intake, pasta, bread, rice and potatoes are all sugar and that is aside from all the sweet stuff, remember that fruits are good but they are Sweet also. (4) Generalized anxiety disorder: Code(s): F41.1 - Generalized anxiety disorder Category: Medical Plan: Patient on buspirone (5) Osteoporosis: Comment: (Osteoporosis- Bone Dexa Femoral T-score: -2.5 - 06/05/23) Code(s): M81.0 - Age-related osteoporosis without current pathological fracture Category: Medical Plan: Up-to-date with bone density discussed concerns about low vitamin-D Plan History of Present Illness The patient is a 69-year-old female presenting for follow-up of her chronic conditions including GERD, asthma, impaired glucose tolerance, Crohn's disease, generalized anxiety disorder, and osteoporosis. She reports her most recent colonoscopy was in [address] scan in July 2024 showed benign- appearing nodules. Her blood work in August 2024 revealed normal blood counts with mild leukopenia. Her electrolytes and renal function were within normal limits. Blood sugar levels were mildly elevated, with an HbA1c of 5.7. The patient also experienced symptoms of leukocyturia in July 2024. There have been persistent issues related to smoking, and she has been strongly advised to quit. Her cholesterol levels are well-managed, with an LDL of 48. There is a history of low vitamin D, for which she reports taking supplements. Her current medication regimen includes buspirone for anxiety and tramadol for pain. Additionally, her osteoporosis is being managed with bone density evaluations up to date. Despite these ongoing treatments, she acknowledges an ongoing struggle to stop smoking, which poses a risk factor for her other conditions. Health Maintenance - Colonoscopy: Last performed in 2023. - Mammogram: Up to date. - Bone Density: Up to date. - CT Scan of Chest: Benign nodules; conducted in July 2024. - Blood Work (August 2024): Normal blood count with mild leukopenia, normal electrolytes, normal renal function, mildly elevated blood sugar with an A1c of 5.7. - Vaccinations: Tetanus and whooping cough vaccines were administered. - Cholesterol: LDL at 48. - Vitamin D: Low levels noted; supplementation prescribed. - Smoking Cessation: Strongly advised. Social History - Smoking: Patient is a smoker and has been advised to quit. - Anxiety Management: Previously took lorazepam, now on buspirone. - Medications for Crohn's Disease: Taking cetyloprofen. - Vitamin D and Pain Management: Taking prescriptions for low vitamin D and tramadol. - Recent Vaccinations: Received tetanus/DTP and whooping cough vaccinations. Review of Systems - Respiratory: Reports chronic cough. - Endocrine: Denies symptoms of diabetes except mildly elevated blood sugar and hemoglobin A1c. - Gastrointestinal: History of Crohn's disease management; reports use of supplemental vitamins. - Musculoskeletal: Reports osteoporosis, taking medications to aid bone strength. Denies recent fractures. - Psychological: Reports anxiety, managed with medication. - Genitourinary: Reports burning sensation when urinating; leukocyturia noted in past exams. Physical Exam Results - Labs: Mild leukopenia, normal renal function, normal electrolytes, hemoglobin A1c of 5.7, Vitamin D low, High B12, normal iron levels. - Imaging: CT scan of chest in July 2024 with benign appearance of nodules. - Urinalysis: Past leukocyturia noted in July. Plan Continued surveillance and medical management of GERD, asthma, impaired glucose tolerance, Crohn's disease, generalized anxiety disorder, and osteoporosis are vital. Emphasis is placed on smoking cessation to aid in respiratory health preservation. Vitamin D supplementation is prescribed to address low levels, and current pain management with tramadol is maintained. Vaccinations are confirmed up-to-date, and upcoming evaluations for lung nodules warrant consistent follow-ups. Current medications such as buspirone and cetyloprofen remain in effect. Patient was informed and verbally consented to the use of an ambient scribe for clinic note documentation during this visit. Discussion Notes Discussed with the patient the importance of ongoing management for her chronic conditions, emphasizing the necessity of smoking cessation to enhance her respiratory and overall health. Reviewed the benign nature of her recent CT scan findings with a focus on routine monitoring. Current medication adherence was reinforced, with specific attention to Vitamin D supplementation to manage osteoporosis. The patient is informed about the favorable control of cholesterol levels and the importance of regular health screenings. Risks, benefits, and the need for consistency in follow-up assessments were outlined. Patient Instructions - Continue taking all prescribed medications as directed. - Take Vitamin D supplements daily as prescribed. - Quit smoking to improve lung and overall health. - Ensure regular follow-up appointments for chronic condition management. - Maintain consistent monitoring through routine screening tests as scheduled. - Increase water intake for better hydration and renal function. - Contact the office if experiencing worsening symptoms or any new concerns. Medications: New cholecalciferol (vitamin D3) 50 mcg PO DAILY 90 caps 3RF 90 days E55.9 - Vitamin D deficiency, unspecified, M81.0 - Age-related osteoporosis without current pathological fracture Refilled tramadol 50 mg PO DAILY 90 tabs 0RF 90 days K13.0 - Diseases of lips tramadol 50 mg PO DAILY 90 tabs 0RF 90 days K13.0 - Diseases of lips
--- OUTSIDE RECORDS SUMMARY | 2024-10-06 10:35 | XMS_ITS ---
Author Organization [facility] Address [address] [place] [address] Care Team Providers Care Dredge Hand Name Role Phone Tae Duarte MD Primary Care Provider Neymar Sanders [phone] Allergies Allergen (clinical drug ingredient) Drug/Non Drug [...] 50 MG TAKE 2 TABLETS BY [facility] EVERY DAY Active Raloxifene HCl Unkno wn [...] 03/22/2024 Encounters Encounter Location Date Provider Diagnosis [facility] [address] [place] [address] 03/22/2024 Neymar Sauer GERD (gastroesophage al reflux [...] again for allowing me to participate in Vivina's care. I shall continue to keep you [...] 6 Months, Reason: Provider Name:Neymar Sauer , 03/21/2025 10:20:00 AM, [address] [place] [address], [place] [address], [place], [address], Progress Notes * VIVIAN BUNN ADOB:01/1955 (68 yo F)Acc No.[id number]:03/22/2024 Progress Notes Patient:?VIVIAN BUNN A Provider:?Neymar Sauer MD :1955???Age:68 Y???Sex:Female D ate:03/22/2024 Address:[address] [place] [address] [address] [id number] Pcp:Tae Daurte MD Subjective: * Chief Complaints: * ???Patient [...] removed November 2012Removed basal call carcinoma from [facility] Dec 2012[facility]-Dr. Leahy 04/17/2015Squamous cell cancer [...] 2, Interpretation: Negative.?Miscellaneous:?Marital status: . 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 ???Smokes; no sig alcohol. * Medications:?TakingVitamin B [...] Procedure Codes:?3017F COLOR ECTAL CA SCREEN DOC [id number] Pt scrn tbco and id as [id number] BP SCR NOT PRFRM REC REASON NOS [...] Sauer MD Date:? [address] adame/Dexter/Efrenitting on:?10/06/2024 10:34 AM EDT History and Physical Notes * [...]
--- OUTSIDE RECORDS SUMMARY | 2024-10-06 10:35 | XMS_ITS | Patient Health Record ---
Author Organization [facility] Address [address] [place] [address] Care Team Providers Care Manager Skilled Name Role Phone Po Tae FERRER Primary Care Provider Neymar Sanders [phone] Allergies Allergen (clinical drug ingredient) Drug/Non Drug Allergy documented on EMR Reaction Allergy Type Onset Date Status tetracycline Tetracycline HCl Unknown Drug Allergy Active Darvon Unknown Drug Allergy Active Results Component Value Reference Range Notes Leukocytes Stool Qualitative Reviewed date:10/08/2023 12:22:24 PM Interpretation: Performing Lab:[facility], [address] [place] [phone] Notes/Report: Leukocytes Stool Qualitative NEGATIVE NEGATIVE Calprotectin, Fecal Reviewed date:10/23/2023 06:04:34 PM Interpretation: Performing Lab:[facility], [address] [place] [phone] Notes/Report: Calprotectin, Fecal 14 Reference Range: <50 [...] borderline values. THIS TEST WAS PERFORMED AT: [facility] [address] [place] [address] VICTORIANO PATEL MD,PHD,[facility] CDiff Gene PCR Reviewed date:10/14/2023 11:18:35 PM Interpretation: Performing Lab:[facility], [address] [place] [phone] Notes/Report: CDiff Gene PCR NEGATIVE Negative If C. difficile strongly suspected despite one negative test, a second test may be sent vs. empiric treatment for C. difficile infection. GI PANEL Reviewed date:10/10/2023 01:57:53 PM Interpretation: Performing Lab:[facility], [address] [place] [phone] Notes/Report: Campylobacter Not Detected Not Detect. Plesiomonas [...] is performed by Multiplexed PCR, utilizing the Intela Array. Complete Blood Count Auto Di ff Reviewed date:10/23/2023 06:03:13 PM Interpretation: Performing Lab:[facility], [address] [place] [phone] Notes/Report: White Blood Count 4.5 4.8-10.8 X10*3/uL [...] Panel Reviewed date:10/23/2023 06:01:42 PM Interpretation: Performing Lab:[facility], [address] [place] [phone] Notes/Report: Sodium 145 135-145 mmol/L Potassium 3.9 3.3-5.1 mmol/L Chloride 110 96-108 mmol/L Carbon Dioxide 28 22-29 mmol/L Anion Gap 11 12-20 Blood Urea Nitrogen 7 9-16 mg/dL Creatinine 0.70 0.5-1.4 mg/dL Estimated Glomerular Filt Rate > 60 NOTE: For -[place] individuals, multiply the result by 1.210. Chronic [...] Panel Reviewed date:10/23/2023 06:01:25 PM Interpretation: Performing Lab:[facility], [address] [place] [phone] Notes/Report: Bilirubin Total 0.5 0.0-1.0 mg/dL Bilirubin Direct 0.2 0.0-0.5 mg/dL Aspartate Amino Transferase 22 5-31 U/L Alanine Aminotransferase 16 0-31 U/L Total Protein 6.8 6.5-8.0 g/dL Albumin Level 4.0 3.5-5.0 g/dL Alkaline Phosphatase 90 39-117 U/L Lipid Panel Reviewed date:10/23/2023 06:03:22 PM Interpretation: Performing Lab:[address] [phone] Notes/Report: Triglycerides 63 <150 mg/dL Desirable Triglyceride: [...] Folate Reviewed date:10/23/2023 05:59:10 PM Interpretation: Performing Lab:[address] [phone] Notes/Report: Vitamin B12 > 2000 200-900 pg/mL NORMAL 200-900 PG/ML INDETERMINATE 160-199 PG/ML DEFICIENT < 160 PG/ML Folate 10.6 > or = 4.0 ng/mL Reference Values: > or = 4.0 ng/mL < 4.0 ng/mL suggests folate deficiency Methotrexate, aminopterin and folinic acid (leucovorin) are chemotherapeutic agents whose molecular structures are similar to folate; therefore, the [employer] folate assay cannot be used for patients using these drugs. Vitamin D 25-OH Total Reviewed date:10/23/2023 06:04:47 PM Interpretation: Performing Lab:[address] [phone] Notes/Report: Vitamin D 25-OH Total 22.6 >30 [...] Thyroxine) Reviewed date:10/23/2023 06:07:28 PM Interpretation: Performing Lab:[address] [phone] Notes/Report: Free T4 (Free Thyroxine) 0.84 0.71-1.85 ng/dL Thyroid Stimulating Hormone Reviewed date:10/23/2023 06:07:47 PM Interpretation: Performing Lab:[facility], [address] [place] [phone] Notes/Report: Thyroid Stimulating Hormone 0.95 0.32-4.0 uIU/mL TSH 3rd Generation ([facility]) Hemoglobin A1c Reviewed date:10/23/2023 06:01:06 PM Interpretation: Performing Lab:[facility], [address] [place] [phone] Notes/Report: Hemoglobin A1c % 5.9 <6.0 % [...] average glucose, using the formula of the T4T-Epygvgv Average Glucose study (ADAG), Diabetes Care, Vol.31,#8, 2007 UA ClnCatch+Micro w/rflx Cul t Reviewed date:10/26/2023 07:12:04 PM Interpretation: Performing Lab:[facility], [address] [place] [phone] Notes/Report: Urine, Clean Catch Color Urine Yellow Appearance Urine Clear PH 5.5 5.0-9.0 Glucose Urine UA Negative Negative mg/dL Urine Blood Moderate (2+) Negative Specific [place] - Urine <= 1.005 1.005-1.025 Urine Protein Negative Neg-Trace mg/dL Urine Ketones Negative Negative mg/dL Nitrite Urine Negative Negative Leukocyte Esterase Urine Trace Negative RBC Urine 0-2 0-2 /HPF WBC Urine 0-5 0-5 /HPF Squamous Epithelial Cell Urine 0-2 0-2 /HPF Bacteria Urine None Seen None Seen Hyaline Casts Urine 0-2 0-2 /LPF Glucose, Whole Blood Reviewed date:10/28/2023 05:51:13 PM Interpretation: Performing Lab:[facility], [address] [place] [phone] Notes/Report: Glucose, Whole Blood 77 60-115 mg/dL METER # : [id number] Pathology Reviewed date:11/07/2023 10:08:08 PM Interpretation: Performing Lab:[facility], [address] [place] [address] Notes/Report: Name: Vivian Mccollum Jovanny Age/Sex: 68/F : 1955 Unit#: [id number] Attend Dr: Neymar Sauer Re10/28/23 Status: [facility] Location: [facility] Disch: SPEC : [id number] RECD: 10/28/23-1320 STATUS: BARRETT CABRERA NUM: [id number] ADRIA: 10/28/23-[address] [facility] [address]: Neymar Sauer ENTERED: 10/28/23-1327 SP [...] CONTINUED ON NEXT PAGE Name: Vivian Mccollum Age/Sex: 68/F : 1955 [facility]#: [id number] Unit#: [id number] Attend Dr: Neymar Sauer Re10/28/23 Status: [facility] Location: [facility] Disch: SPEC : [id number] RECD: 10/28/23-5124 STATUS: BARRETT CABRERA NUM: [id number] ADRIA: 10/28/23-1152 PAZ LOGAN: Neymar Sauer ENTERED: 10/28/23-1328 SP TYPE: Surgical OTHR DR: Tae Duarte [...] D. FM Copies To: Tae Duarte MD [address] [place] [address] Dr[address] [place] [address] Neymar Sauer [address] [place] [address] [address] [place] [address] Signed (signature on file) Joie Johnson 10/29/231121 END OF REPORT Glucose, Whole Blood Reviewed date:10/28/2023 05:51:06 PM Interpretation: Performing Lab:[facility], [address] [place] [phone] Notes/Report: Glucose, Whole Blood 112 60-115 mg/dL METER # : [id number] Complete Blood Count Auto Di ff Reviewed date:11/23/2023 10:23:49 PM Interpretation: Performing Lab:[facility], [address] [place] [phone] Notes/Report: White Blood Count 4.8 4.8-10.8 X10*3/uL [...] Panel Reviewed date:11/23/2023 10:24:01 PM Interpretation: Performing Lab:[address] [phone] Notes/Report: Bilirubin Total 0.5 0.0-1.0 mg/dL Bilirubin Direct 0.2 0.0-0.5 mg/dL Aspartate Amino Transferase 24 5-31 U/L Alanine Aminotransferase 15 0-31 U/L Total Protein 6.8 6.5-8.0 g/dL Albumin Level 4.0 3.5-5.0 g/dL Alkaline Phosphatase 93 39-117 U/L Complete Blood Count Auto Di ff Reviewed date:12/28/2023 07:00:26 PM Interpretation: Performing Lab:[address] [phone] Notes/Report: White Blood Count 5.2 4.8-10.8 X10*3/uL [...] Panel Reviewed date:12/25/2023 07:24:09 PM Interpretation: Performing Lab:[facility], [address] [place] [phone] Notes/Report: Bilirubin Total 0.3 0.0-1.0 mg/dL Bilirubin Direct 0.1 0.0-0.5 mg/dL Aspartate Amino Transferase 19 5-31 U/L Alanine Aminotransferase 11 0-31 U/L Total Protein 6.9 6.5-8.0 g/dL Albumin Level 4.1 3.5-5.0 g/dL Alkaline Phosphatase 86 39-117 U/L Vitamin B12 Reviewed date:12/25/2023 07:24:18 PM Interpretation: Performing Lab:[facility], [address] [place] [phone] Notes/Report: Vitamin B12 432 200-900 pg/mL NORMAL 200-900 PG/ML INDETERMINATE 160-199 PG/ML DEFICIENT < 160 PG/ML Liver Panel Reviewed date:01/23/2024 10:45:45 PM Interpretation: Performing Lab:[facility], [address] [place] [phone] Notes/Report: Bilirubin Total 0.5 0.0-1.0 mg/dL Bilirubin Direct 0.2 0.0-0.5 mg/dL Aspartate Amino Transferase 23 5-31 U/L Alanine Aminotransferase 15 0-31 U/L Total Protein 6.6 6.5-8.0 g/dL Albumin Level 4.0 3.5-5.0 g/dL Alkaline Phosphatase 83 39-117 U/L Liver Panel Reviewed date:02/22/2024 11:20:19 PM Interpretation: Performing Lab:[facility], [address] [place] [phone] Notes/Report: Bilirubin Total 0.5 0.0-1.0 mg/dL Bilirubin Direct 0.2 0.0-0.5 mg/dL Aspartate Amino Transferase 22 5-31 U/L Alanine Aminotransferase 16 0-31 U/L Total Protein 6.7 6.5-8.0 g/dL Albumin Level 4.0 3.5-5.0 g/dL Alkaline Phosphatase 86 39-117 U/L Complete Blood Count Auto Di ff Reviewed date:03/23/2024 06:59:11 PM Interpretation: Performing Lab:[facility], [address] [place] [phone] Notes/Report: White Blood Count 3.6 4.8-10.8 X10*3/uL [...] Panel Reviewed date:03/23/2024 06:59:35 PM Interpretation: Performing Lab:[facility], [address] [place] [phone] Notes/Report: Bilirubin Total 0.3 0.0-1.0 mg/dL Bilirubin Direct 0.1 0.0-0.5 mg/dL Aspartate Amino Transferase 27 5-31 U/L Alanine Aminotransferase 17 0-31 U/L Total Protein 6.6 6.5-8.0 g/dL Albumin Level 4.0 3.5-5.0 g/dL Alkaline Phosphatase 91 39-117 U/L MAMMOGRAM DIGITAL BILATERAL SCREEN Reviewed date:03/24/2024 08:32:51 AM Interpretation:Normal Performing Lab: Notes/Report: Normal Complete Blood Count Auto Di ff Reviewed date:04/23/2024 09:32:52 AM Interpretation: Performing Lab:[facility], [address] [place] [phone] Notes/Report: White Blood Count 5.5 4.8-10.8 X10*3/uL [...] Panel Reviewed date:04/23/2024 09:33:16 AM Interpretation: Performing Lab:[facility], [address] [place] [phone] Notes/Report: Bilirubin Total 0.4 0.0-1.0 mg/dL Bilirubin Direct 0.1 0.0-0.5 mg/dL Aspartate Amino Transferase 23 5-31 U/L Alanine Aminotransferase 16 0-31 U/L Total Protein 7.1 6.5-8.0 g/dL Albumin Level 4.3 3.5-5.0 g/dL Alkaline Phosphatase 86 39-117 U/L Complete Blood Count Auto Di ff Reviewed date:05/20/2024 04:02:01 PM Interpretation: Performing Lab:[facility], [address] [place] [phone] Notes/Report: White Blood Count 4.9 4.8-10.8 X10*3/uL [...] Panel Reviewed date:05/20/2024 04:02:33 PM Interpretation: Performing Lab:[facility], [address] [place] [phone] Notes/Report: Bilirubin Total 0.4 0.0-1.0 mg/dL Bilirubin Direct 0.1 0.0-0.5 mg/dL Aspartate Amino Transferase 29 5-31 U/L Alanine Aminotransferase 19 0-31 U/L Total Protein 7.0 6.5-8.0 g/dL Albumin Level 4.1 3.5-5.0 g/dL Alkaline Phosphatase 82 39-117 U/L Complete Blood Count Auto Di ff Reviewed date:06/21/2024 10:33:11 AM Interpretation: Performing Lab:[facility], [address] [place] [phone] Notes/Report: White Blood Count 4.2 4.8-10.8 X10*3/uL [...] Panel Reviewed date:06/21/2024 10:33:28 AM Interpretation: Performing Lab:[facility], [address] [place] [phone] Notes/Report: Bilirubin Total 0.4 0.0-1.0 mg/dL Bilirubin Direct 0.1 0.0-0.5 mg/dL Aspartate Amino Transferase 24 5-31 U/L Alanine Aminotransferase 24 0-31 U/L Total Protein 7.3 6.5-8.0 g/dL Albumin Level 4.2 3.5-5.0 g/dL Alkaline Phosphatase 87 39-117 U/L Complete Blood Count Auto Di ff Reviewed date:07/22/2024 05:28:16 PM Interpretation: Performing Lab:[facility], [address] [place] [phone] Notes/Report: White Blood Count 5.1 4.8-10.8 X10*3/uL [...] Panel Reviewed date:07/26/2024 06:49:01 PM Interpretation: Performing Lab:[facility], [address] [place] [phone] Notes/Report: Sodium 139 135-145 mmol/L Potassium 3.9 [...] Panel Reviewed date:07/26/2024 06:49:13 PM Interpretation: Performing Lab:[facility], [address] [place] [phone] Notes/Report: Bilirubin Direct 0.2 0.0-0.5 mg/dL IRON PROFILE Reviewed date:07/26/2024 06:49:29 PM Interpretation: Performing Lab:[facility], [address] [place] [phone] Notes/Report: Iron 94 30-160 mcg/dL Total Iron Binding Capacity 257 228-428 mcg/dL Percent Iron Saturation 37 15-50 % Unsaturated Iron Binding 163 Lipid Panel Reviewed date:07/26/2024 06:49:37 PM Interpretation: Performing Lab:[facility], [address] [place] [phone] Notes/Report: Triglycerides 72 <150 mg/dL Desirable Triglyceride: [...] Hormone Reviewed date:07/26/2024 06:49:57 PM Interpretation: Performing Lab:[facility], [address] [place] [phone] Notes/Report: Thyroid Stimulating Hormone 1.50 0.32-4.0 uIU/mL TSH 3rd Generation ([facility]) Complete Blood Count Auto Di ff Reviewed date:09/19/2024 08:11:23 PM Interpretation: Performing Lab:[facility], [address] [place] [phone] Notes/Report: White Blood Count 4.4 4.8-10.8 X10*3/uL Red Blood Count 3.98 4.20-5.50 X10*6/uL Hemoglobin 13.6 12.0-16.0 g/dl Hematocrit 40.7 37.0-47.0 % Mean Corpuscular Volume 102.3 80.0-98.0 fL Mean Corpuscular Hemoglobin 34.2 27.0-33.0 pg Mean Corpuscular HGB Conc 33.4 31.0-35.0 g/dl Red Cell Distribution Width 13.6 11.0-16.0 % Platelet Count 264 160-400 X10*3/uL Mean Platelet Volume 9.8 9.4-12.3 fL Neutrophils Percent Auto 62.0 45-73 % Imm Gran Pct Auto 0.2 0.0-0.4 % Lymphocytes Percent Auto 18.3 20-40 % Monocytes Percent Auto 13.1 2-11 % Eosinophils Percent Auto 5.3 0-4 % Basophils Percent Auto 1.1 0-2 % NRBC Pct Auto 0.0 0.0-0.2 /100WBC Neutrophils Absolute Auto 2.7 2.0-8.3 x10*3/uL Imm Gran Abs Auto 0.01 0.00-0.03 X10*3/uL Lymphocytes Absolute Auto 0.8 1.2-4.9 X10*3/uL Monocytes Absolute Auto 0.6 0.1-1.2 X10*3/uL Eosinophils Absolute Auto 0.2 0.0-0.4 X10*3/uL Basophils Absolute Auto 0.1 0.0-0.2 X10*3/uL NRBC Abs Auto 0.000 0.0-0.012 X10*3/uL Liver Panel Reviewed date:09/19/2024 08:10:44 PM Interpretation: Performing Lab:[facility], [address] [place] [phone] Notes/Report: Bilirubin Total 0.5 0.0-1.0 mg/dL Bilirubin Direct 0.2 0.0-0.5 mg/dL Aspartate Amino Transferase 30 5-31 U/L Alanine Aminotransferase 19 0-31 U/L Total Protein 6.9 6.5-8.0 g/dL Albumin Level 4.3 3.5-5.0 g/dL Alkaline Phosphatase 82 39-117 U/L Reason For Referral No Information Medications Medication SIG (Take, Route, Frequency, Duration) Notes Start Date End Date Status Dicyclomine HCl 10 MG TAKE 1 TO 2 CAPSUL ES BY MOUTH 4 TIMES A DAY NEEDED FOR ABDOMINAL CRAMPS OR DISCOMFORT FOR 90 DAYS for 90 Active azaTHIOprine 50 MG TAKE 2 TABLETS BY MO UTH EVERY DAY Active traMADol HCl 50mg 1 tablet as needed Orally every 8 hours prn Active Cyanocobalamin 1000 MCG/ML INJECT 1ML EV ALEJANDRO 4 WEEKS Injection for 84 Active busPIRone HCl 10 MG 1 tablet Orally once a day Active Raloxifene HCl Unkno wn Pentasa 500 MG TAKE 2 CAPSULES BY M [facility] 4 TIMES A DAY 90 DAYS for 90 Active Omeprazole 20 MG take 1 capsule by mo [facility] once daily Orally Once a day Active Pentasa 500 MG 2 capsules Orally Fo ur times a day 09/28/2012 Active Vitamin B-6 100 MG 1 tablet Orally twic e a day for 30 days Active Cholestyramine 4 GM/DOSE use anywhere fr om /4 to 1 scoop Orally Once or twice a day a needed for diarrhea for 30 days Active Dicyclomine HCl 10 MG TAKE 1 TO 2 CAPSUL ES BY MOUTH 4 TIMES A DAY NEEDED FOR ABDOMINAL CRAMPS OR DISCOMFORT Active Immunizations Vaccine Route Administration Date Status [...] Problem Status W/U Status Risk Notes Problem 229668996 Gastro-esophagea l reflux disease without esophagitis (K21.9) Active confirmed Problem 175860896 Encounter for screening for malignant neoplasm of colon (Z12.11) Active confirmed Problem 620495640 History of adenomatous polyp of colon (Z86.010) Active confirmed Problem 00576065 Weight loss (R63.4) Active confirmed Problem 65597810 Crohn's disease of both small and large intestine without complication (K50.80) Active confirmed Problem 97337808 Crohn's disease of both small and large intestine without complications (K50.80) Active confirmed Problem Diverticular disease of colon (474905902) Diverticulosis of large intestine without perforation or abscess without bleeding (K57.30) Active confirmed Problem 478735579 Irritable bowel syndrome with diarrhea (K58.0) Active confirmed Problem 9795505 Melena (K92.1) Active confirmed Problem 627198041 Encounter for therapeutic drug level monitoring (Z51.81) Active confirmed Problem Intestinal bypas s and anastomosis status (Z98.0) Active confirmed Problem 90413984 Crohns disease o f both small and large intestine without complication (K50.80) Active confirmed Problem 961825947 History of colon polyps (Z86.010) Active confirmed Problem 837213580 Gallstones (K80.20) Active confirmed Problem Gastroesophageal reflux disease (956062001) GERD (gastroesophageal reflux disease) (K21.9) Active confirmed Problem 286084468 Abdominal pain, generalized (R10.84) Active confirmed Problem 87495464 Diarrhea, unspecified type (R19.7) Active confirmed Problem 773405800 Therapeutic drug monitoring (Z51.81) Active confirmed Problem 93760609 Crohn''s disease of both small and large intestine without complication (K50.80) Active confirmed Problem 80975735 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 Vital Signs Blood pressure diastolic 77 mm Hg 09/27/2024 Height 65 in 09/27/2024 Blood pressure systolic 111 mm Hg 09/27/2024 Weight 130 lbs 09/27/2024 BMI 21.63 kg/m2 09/27/2024 Encounters Encounter Location Date Provider Diagnosis [facility] [place] Outpatient [address] [place] [id number] 10/28/2023 Neymar Sauer Encounter for screen ing colonoscopy Z12.11 ; Crohn''s disease of both small and large intestine without complication K50.80 ; Intestinal bypass and anastomosis status Z98.0 ; Diverticulosis of large intestine without perforation or abscess without bleeding K57.30 ; Other hemorrhoids K64.8 ; Gastro-esophageal reflux disease without esophagitis K21.9 ; Hiatal hernia K44.9 and Abdominal pain R10.9 [facility] [address] [place] [phone] 09/27/2024 Neymar aSuer Crohns disease of elkin th small and large intestine without complication K50.80 ; Gastro-esophageal reflux disease without esophagitis K21.9 ; History of adenomatous polyp of colon Z86.010 ; Diarrhea, unspecified type R19.7 and Bile salt-induced diarrhea K90.89 [facility] [address] [place] [phone] 03/22/2024 Neymar Sauer GERD (gastroesophage al reflux disease) K21.9 ; Crohn's disease of both small and large intestine without complications K50.80 and Bile salt-induced diarrhea K90.89 [facility] [address] [place] [phone] 11/03/2023 Neymar Sauer [facility] [address] [phone] 12/18/2023 Neymar Sauer [facility] [address] [place] [phone] 12/21/2023 Neymar Sauer [facility] [address] [phone] 02/22/2024 Neymar Sauer Crohn''s disease of both small and large intestine without complication K50.80 Assessments Encounter Date Diagnosis (ICD Code) Assessment Notes Treatment Notes Treatment Clinical Notes Section Notes 10/28/2023 Encounter for screening colonoscopy (ICD-10 - Z12.11) 10/28/2023 Crohn''s disease of both small and large intestine without complication (ICD-10 - K50.80) 09/27/2024 Crohns disease of both small and large intestine without complication (ICD-10 - K50.80) Continue the same Pentasa and Azathioprine regimen. Continue the same labs Overall, Vivian appears quite well. It does appear that her GI issues are currently remaining quite stable on the current medical regimen. I did advise her to continue her Crohn's disease therapy with the Pentasa and azathioprine, as well as her laboratories every month or every other month as she is doing. I also advised her to continue the cholestyramine to treat the bile-induced diarrhea, but that she could certainly adjust it on a day-to-day basis so as to avoid any constipation or significant diarrhea. It does seem that the cholestyramine has given her good relief of her previous diarrhea as well. I did advise her to continue her daily omeprazole and to continue to eat slowly and carefully. I did advise her to let me know if she is having any worsening dysphagia. However at this point I do not think her episodes of dysphagia that she describes are anything significant given her negative endoscopy last year and what sounds like some episodes of some esophageal spasm or perhaps just eating too quickly. She will continue her dicyclomine for any abdominal cramping as well. We did review that she will be due for a follow-up colonoscopy in 2028. I will plan to see her in 6 months for a follow-up visit but did advise her to contact me sooner if she has any problems or questions [...] bypass and anastomosis status (ICD-10 - Z98.0) 09/27/2024 Gastro-esophageal reflux disease without esophagitis (ICD-10 - K21.9) Continue daily omeprazole, eat slowly and carefully Overall, Vivian appears quite well. It does appear that her GI issues are currently remaining quite stable on the current medical regimen. I did advise her to continue her Crohn's disease therapy with the Pentasa and azathioprine, as well as her laboratories every month or every other month as she is doing. I also advised her to continue the cholestyramine to treat the bile-induced diarrhea, but that she could certainly adjust it on a day-to-day basis so as to avoid any constipation or significant diarrhea. It does seem that the cholestyramine has given her good relief of her previous diarrhea as well. I did advise her to continue her daily omeprazole and to continue to eat slowly and carefully. I did advise her to let me know if she is having any worsening dysphagia. However at this point I do not think her episodes of dysphagia that she describes are anything significant given her negative endoscopy last year and what sounds like some episodes of some esophageal spasm or perhaps just eating too quickly. She will continue her dicyclomine for any abdominal cramping as well. We did review that she will be due for a follow-up colonoscopy in 2028. I will plan to see her in 6 months for a follow-up visit but did advise her to contact me sooner if she has any problems or questions [...] or abscess without bleeding (ICD-10 - K57.30) 09/27/2024 History of adenomatous polyp of colon (ICD-10 - Z86.010) Overall, Vivian appears quite well. It does appear that her GI issues are currently remaining quite stable on the current medical regimen. I did advise her to continue her Crohn's disease therapy with the Pentasa and azathioprine, as well as her laboratories every month or every other month as she is doing. I also advised her to continue the cholestyramine to treat the bile-induced diarrhea, but that she could certainly adjust it on a day-to-day basis so as to avoid any constipation or significant diarrhea. It does seem that the cholestyramine has given her good relief of her previous diarrhea as well. I did advise her to continue her daily omeprazole and to continue to eat slowly and carefully. I did advise her to let me know if she is having any worsening dysphagia. However at this point I do not think her episodes of dysphagia that she describes are anything significant given her negative endoscopy last year and what sounds like some episodes of some esophageal spasm or perhaps just eating too quickly. She will continue her dicyclomine for any abdominal cramping as well. We did review that she will be due for a follow-up colonoscopy in 2028. I will plan to see her in 6 months for a follow-up visit but did advise her to contact me sooner if she has any problems or questions I can be of assistance with. Vivian was comfortable with this plan. Thank you again for allowing me to participate in Vivian's care. I shall continue to keep you advised of her progress. 10/28/2023 Other hemorrhoids (ICD-10 - K64.8) 09/27/2024 Diarrhea, unspecified type (ICD-10 - R19.7) Overall, Vivian appears quite well. It does appear that her GI issues are currently remaining quite stable on the current medical regimen. I did advise her to continue her Crohn's disease therapy with the Pentasa and azathioprine, as well as her laboratories every month or every other month as she is doing. I also advised her to continue the cholestyramine to treat the bile-induced diarrhea, but that she could certainly adjust it on a day-to-day basis so as to avoid any constipation or significant diarrhea. It does seem that the cholestyramine has given her good relief of her previous diarrhea as well. I did advise her to continue her daily omeprazole and to continue to eat slowly and carefully. I did advise her to let me know if she is having any worsening dysphagia. However at this point I do not think her episodes of dysphagia that she describes are anything significant given her negative endoscopy last year and what sounds like some episodes of some esophageal spasm or perhaps just eating too quickly. She will continue her dicyclomine for any abdominal cramping as well. We did review that she will be due for a follow-up colonoscopy in 2028. I will plan to see her in 6 months for a follow-up visit but did advise her to contact me sooner if she has any problems or questions I can be of assistance with. Vivian was comfortable with this plan. Thank you again for allowing me to participate in Vivian's care. I shall continue to keep you advised of her progress. 10/28/2023 Gastro-esophageal reflux disease without esophagitis (ICD-10 - K21.9) 09/27/2024 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) Continue the Cholestyramine powder and adjust as needed for the diarrhea Overall, Vivian appears quite well. It does appear that her GI issues are currently remaining quite stable on the current medical regimen. I did advise her to continue her Crohn's disease therapy with the Pentasa and azathioprine, as well as her laboratories every month or every other month as she is doing. I also advised her to continue the cholestyramine to treat the bile-induced diarrhea, but that she could certainly adjust it on a day-to-day basis so as to avoid any constipation or significant diarrhea. It does seem that the cholestyramine has given her good relief of her previous diarrhea as well. I did advise her to continue her daily omeprazole and to continue to eat slowly and carefully. I did advise her to let me know if she is having any worsening dysphagia. However at this point I do not think her episodes of dysphagia that she describes are anything significant given her negative endoscopy last year and what sounds like some episodes of some esophageal spasm or perhaps just eating too quickly. She will continue her dicyclomine for any abdominal cramping as well. We did review that she will be due for a follow-up colonoscopy in 2028. I will plan to see her in 6 months for a follow-up visit but did advise her to contact me sooner if she has any problems or questions I can be of assistance with. Vivian was comfortable with this plan. Thank you again for allowing me to participate in Vivian's care. I shall continue to keep you advised of her progress. 10/28/2023 Hiatal hernia (ICD-10 - K44.9) 10/28/2023 Abdominal pain (ICD-10 - R10.9) Plan Of Treatment Pending Test Test Name Order Date LIVER PROFILE 01/03/2014 LIVER PROFILE 06/02/2018 LIVER PROFILE 12/22/2022 LIVER PROFILE 06/29/2017 LIVER PROFILE 06/04/2021 LIVER PROFILE 07/30/2020 LIVER PROFILE 02/22/2024 LIVER PROFILE 10/26/2018 LIVER PROFILE 03/03/2012 LIVER PROFILE 08/08/2021 LIVER PROFILE 07/18/2016 CRP 02/28/2021 CRP 03/04/2022 CBC w DIFF 07/18/2016 CBC w DIFF 06/23/2019 CBC w DIFF 01/03/2014 CBC w DIFF 06/02/2018 CBC w DIFF 12/22/2022 CBC w DIFF 06/29/2017 CBC w DIFF 06/04/2021 CBC w DIFF 07/30/2020 CBC w DIFF 07/31/2014 CBC w DIFF 02/22/2024 CBC w DIFF 10/26/2018 CBC w DIFF 03/03/2012 CBC w DIFF 03/04/2022 CBC w DIFF 08/08/2021 SED RATE (ESR) 03/04/2022 SED RATE (ESR) 02/28/2021 STOOL WBC 03/04/2022 STOOL WBC 09/17/2023 C DIFFICILE RFLX PCR 09/17/2023 C DIFFICILE RFLX PCR 02/28/2021 C DIFFICILE RFLX PCR 03/04/2022 Calprotectin, Fecal 09/17/2023 GI PANEL 09/17/2023 Future Test Test Name Order Date COLONOSCOPY 02/02/2013 COLONOSCOPY 06/02/2018 UPPER GI ENDOSCOPY 02/21/2020 UPPER GI ENDOSCOPY 09/17/2023 COLONOSCOPY 09/17/2023 Next Appt Details Provider Name:Neymar Sauer , 03/21/2025 10:20:00 AM, [address] [facility], [address], [place], [address], Insurance Providers Payer Name Payer Address Payer Phone Subscriber Number Group Number Insured Name Patient Relationship to Insured Coverage Start Date Coverage End Date MEDICARE OF [place] [address] [place] [address] [id number] VIVIAN MCCOLLUM Self - patient is the insured [employer] ATTN CLAIMS [address] [place] [address] [phone] [id number] VIVIAN MCCOLLUM Self - patient is the insured Medical (General) History Medical History History ICD Code Crohn's disease of SI and co sea-diagnosed in the early s and had a right ileocolectomy with Dr. [...] the area of the femoral neck Denies MT,DM,CVA,Lung disease,renal dise ase Anxiety GERD--EGD in 04/2007 [...] dysplasia as well. Surgical History Surgery Date(Month/Year) Ganglion cyst on wrist removed 12/2022 D&C polyp in uterus benign 2021 She is scheduled for a hyste roscopy and D&C with Dr. Carcamo for 03/14/2022 Squamous cell cancer on scalp and forehe ad 2017 Lap [facility]-Dr. 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 Lima
--- OUTSIDE RECORDS SUMMARY | 2024-10-06 10:35 | XMS_ITS ---
Author Organization [facility] Address [address] [place] [address] Care Team Providers Care Proofer Apprentice Name Role Phone Tae Duarte MD Primary Care Provider Neymar Sanders [phone] Allergies Allergen (clinical drug ingredient) Drug/Non Drug Allergy documented on EMR Reaction Allergy Type Onset Date Status tetracycline Tetracycline HCl Unknown Drug Allergy Active Darvon Unknown Drug Allergy Active REASON FOR VISIT Patient presents today for gerd Medications Medication SIG (Take, Route, Frequency, Duration) Notes Start Date End Date Status Raloxifene HCl Unkno wn Omeprazole 20 MG take 1 capsule by mo uth once daily Orally Once a day Active Pentasa 500 MG 2 capsules Orally Fo ur times a day 09/28/2012 Active Cholestyramine 4 GM/DOSE use anywhere fr om 1/4 to 1 scoop Orally Once or twice a day a needed for diarrhea for 30 days Active Dicyclomine HCl 10 MG TAKE 1 TO 2 CAPSUL ES BY MOUTH 4 TIMES A DAY NEEDED FOR ABDOMINAL CRAMPS OR DISCOMFORT Active Dicyclomine HCl 10 MG TAKE 1 TO 2 CAPSUL ES BY MOUTH 4 TIMES A DAY NEEDED FOR ABDOMINAL CRAMPS OR DISCOMFORT FOR 90 DAYS for 90 Active azaTHIOprine 50 MG TAKE 2 TABLETS BY MO UTH EVERY DAY Active traMADol HCl 50mg 1 tablet as needed Orally every 8 hours prn Active Pentasa 500 MG TAKE 2 CAPSULES BY M OUT 4 TIMES A DAY 90 DAYS for 90 Active Cyanocobalamin 1000 MCG/ML INJECT 1ML EV ALEJANDRO 4 WEEKS Injection for 84 Active busPIRone HCl 10 MG 1 tablet Orally once a day Active Vitamin B-6 100 MG 1 tablet Orally twic e a day for 30 days Active Social History Tobacco Use: Social History [...] sig alcohol Vital Signs Blood pressure systolic 111 mm Hg 09/28/19 25 Blood pressure diastolic 77 mm Hg 025 Height 65 in 09/27/2024 Weight 130 lbs 09/27/2024 BMI 21.63 kg/m2 09/27/2024 Encounters Encounter Location Date Provider Diagnosis [facility] [address] [place] [address] 09/27/2024 Neymar Sauer Crohns disease of elkin th small and large intestine without complication K50.80 ; Gastro-esophageal reflux disease without esophagitis K21.9 ; History of adenomatous polyp of colon Z86.010 ; Diarrhea, unspecified type R19.7 and Bile salt-induced diarrhea K90.89 Assessments Encounter Date Diagnosis (ICD Code) Assessment Notes Treatment Notes Treatment Clinical Notes Section Notes 09/27/2024 Crohns disease of both small and [...] to keep you advised of her progress. 09/27/2024 Gastro-esophage al reflux disease without esophagitis (ICD-10 - K21.9) [...] again for allowing me to participate in iVvian's care. I shall continue to keep you advised of her progress. 09/27/2024 History of adenomatous polyp of colon [...] to keep you advised of her progress. 09/27/2024 Diarrhea, unspecified type (ICD-10 - R19.7) [...] to keep you advised of her progress. 09/27/2024 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) [...] advised of her progress. Plan Of Treatment Treatment Notes Assessment Notes Crohns disease of both small and large intestine without complication Continue the same Pentasa and Azathiopri ne regimen. Continue the same labs Gastro-esophageal reflux dis ease without esophagitis Continue daily omeprazole, eat slowly an d carefully Bile salt-induced diarrhea Continue the Cholestyramine powder and adjust as needed for the diarrhea Next Appt Details Follow Up: 6 Months, Reason: Provider Name:Neymar Sauer , 03/21/2025 10:20:00 AM, [address] [facility], [address], [place], [address], Progress Notes * SOFIYAKEON VidalVIVIAN ADOB:01/1955 (69 yo F)Acc No.[id number]:09/27/2024 Progress Notes Patient:?DELORESSERGIOKEON VidalVIVIAN Jovanny Provider:?Neymar Sauer MD :1955???Age:69 Y???Sex:Female D ate:09/27/2024 Address:[address] [place], [place] [id number] Pcp:Tae Duarte MD Subjective: * Chief Complaints: * ???1. Patient presents today for gerd. * HPI: ???incontinence:? I saw Vivian in follow-up today in regard to her underlying history of Crohn's disease, gastroesophageal reflux, and a component of bile-induced diarrhea. Since I last saw Vivian in March 2024 she reports that she has been feeling well. She continues on the same regimen of the Pentasa 1 g 4 times daily and azathioprine 100 mg daily. She describes that between this regimen and the daily cholestyramine her bowel movements have been well-controlled and without any significant diarrhea nor any signs of bleeding. She does experience occasional bloating and a sense of constipation, at which time she will stop the cholestyramine for a day or 2 and then resume it. She denies any abdominal pain, jaundice, nor weight loss. She enjoys a good appetite and denies any significant heartburn on her daily omeprazole. She does have an occasional sense of dysphagia if she eats too quickly but denies any episodes of esophageal obstruction, regurgitation, early satiety, nausea, nor vomiting. She still uses dicyclomine at least once or twice a day with good relief of abdominal cramps. Her most recent labs from earlier this month revealed a normal CBC with a hemoglobin of 13.6 and a normal liver profile with an albumin of 4.3. * Medical History:?Crohn's dis ease of SI and colon-diagnosed in the early and had a right ileocolectomy with Dr. Lima in . 1989- colonoscopy in 06/2010 with mild ileocolitis and a single tubular adenoma--no dysplasia, She does describe that she developed some abdominal discomfort and hematuria over the summer of 2010, for which she underwent a CAT scan and evaluation by Dr. Freeman from urology. The CAT scan was negative for any kidney stones but did show a tiny stone in the gallbladder, she had a bone density study in November which was normal in regard to the lumbar spine, but did show some osteopenia in the area of the femoral neck, Denies OK,DM,CVA,Lung disease,renal disease, Anxiety, GERD--EGD in 04/2007 was neg. except a small HH- bx. neg for celiac disease and neg. for H.pylori, Colonoscopy 06/2013--no active colitis--bx neg for dysplasia--tubular adenoma removed in 2010, Colonoscopy in 07/2018-normal colon and colonic biopsies were neg. for dysplasia--there was some minmal ileitis, but the majority of the ileum that was visualized appeared normal, EGD-02/29/2020--minimal HH, no esophagitis/no Vinson's, mild gastritis-bx neg for H.pylori, Urinary incontinence-sees Dr. Mcfarlane, Kidney stones 03/2022 with Hydronephrosis--s/p ESWL and cysto, Upper endoscopy in September of 2023 revealed a small hiatal hernia but no sign of esophagitis or Vinson's esophagus, Colonoscopy in September of 2023 revealed a normal anastomosis without any stricture, a normal distal small bowel without any active ileitis, and a normal colon without any polyps or active colitis. All the biopsies from the colon were negative for dysplasia as well.. * Surgical History:?Crohn's di sease in 1989 with right ileocolectomy with Dr. Lima , Benign breast biopsy , BTL , Cyst behind right ear removed November 2012, Removed basal call carcinoma from muslim Dec 2012, Lap [facility]-Dr. Leahy 04/17/2015, Squamous cell cancer on scalp and forehead 2017, She is scheduled for a hysteroscopy and D&C with Dr. Carcamo for 03/14/2022 , D&C polyp in uterus benign 2021, Ganglion cyst on wrist removed 12/2022. * Family History:?Father: dece ased, diagnosed with [...] 2, Interpretation: Negative.?Miscellaneous:?Marital status: . 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 ???Smokes; no sig alcohol. * Medications:?Taking Vitamin B-6 100 MG Tablet 1 tablet Orally twice a day , Taking busPIRone HCl 10 MG Tablet 1 tablet Orally once a day , Taking Cyanocobalamin 1000 MCG/ML Solution INJECT 1ML EVERY 4 WEEKS Injection , Taking Pentasa 500 MG Capsule Extended Release TAKE 2 CAPSULES BY MOUTH 4 TIMES A DAY 90 DAYS , Taking Dicyclomine HCl 10 MG Capsule TAKE 1 TO 2 CAPSULES BY MOUTH 4 TIMES A DAY NEEDED FOR ABDOMINAL CRAMPS OR DISCOMFORT FOR 90 DAYS , Taking traMADol HCl 50mg Tablet 1 tablet as needed Orally every 8 hours , Notes to Pharmacist: prn, Taking azaTHIOprine 50 MG Tablet TAKE 2 TABLETS BY MOUTH EVERY DAY , Taking Pentasa 500 MG Capsule Extended Release 2 capsules Orally Four times a day , Taking Omeprazole 20 MG Delayed Release Capsule take 1 capsule by mouth once daily Orally Once a day , Taking Dicyclomine HCl 10 MG Capsule TAKE 1 TO 2 CAPSULES BY MOUTH 4 TIMES A DAY NEEDED FOR ABDOMINAL CRAMPS OR DISCOMFORT , Taking Cholestyramine 4 GM/DOSE Powder use anywhere from 1/4 to 1 scoop Orally Once or twice a day a needed for diarrhea , Discontinued Gemtesa 75 MG Tablet Oral , Unknown Raloxifene HCl , Medication List reviewed and reconciled with the patient * Allergies:?Darvon, Tetracycl ine HCl. Objective: * Vitals:?Wt:130lbs, Ht: 65 in , BMI: 21.63 Index, BP:111/77mm Hg, Wt-k.97. Assessment: * Assessment: 1.?Crohns disease of both sm all and large intestine without complication - K50.80 (Primary)???2.?Gastro-esophageal reflux disease without esophagitis - K21.9???3.?History of adenomatous polyp of colon - Z86.010???4.?Diarrhea, unspecified type - R19.7???5.?Bile salt-induced diarrhea - K90.89??? Overall, Vivian appears q uite well. It does appear that her GI [...] advised of her progress. Plan: * Treatment: 2.?Gastro-esophageal reflux disease without esophagitis? Notes: Continue daily omeprazole, eat slowly and carefully?? 3.?Bile salt-induced diarrhe a? Notes: Continue the Cholestyramine powder and adjust as needed for the diarrhea?? * Preventive Medicine:? ??Screenings:?Fall Risk Screening?Fall Risk Assessment:?No falls in the past year,?Screening:?No falls in the past year,?Assessment:?Not performed, no reason specified,?Plan of Care:?Not documented, no reason specified.? * Follow Up:?6 Months * * The named appointment provid er may or may not be the originator of this progress note, and it is not deemed complete until electronically signed by the appointment provider. Sign off status: Pending * Provider:?Neymar Sauer MD Date:? [address] adame/Dexter/Tereso on:?10/06/2024 10:35 AM EDT History and Physical Notes * HPI (History of Present Illness) Category Sub-Category Detail Notes Category Not es incontinence I saw Vivian in follow-up today in regard to her underlying history of Crohn's disease, gastroesophageal reflux, and a component of bile-induced diarrhea. Since I last saw Vivian in March 2024 she reports that she has been feeling well. She continues on the same regimen of the Pentasa 1 g 4 times daily and azathioprine 100 mg daily. She describes that between this regimen and the daily cholestyramine her bowel movements have been well-controlled and without any significant diarrhea nor any signs of bleeding. She does experience occasional bloating and a sense of constipation, at which time she will stop the cholestyramine for a day or 2 and then resume it. She denies any abdominal pain, jaundice, nor weight loss. She enjoys a good appetite and denies any significant heartburn on her daily omeprazole. She does have an occasional sense of dysphagia if she eats too quickly but denies any episodes of esophageal obstruction, regurgitation, early satiety, nausea, nor vomiting. She still uses dicyclomine at least once or twice a day with good relief of abdominal cramps. Her most recent labs from earlier this month revealed a normal CBC with a hemoglobin of 13.6 and a normal liver profile with an albumin of 4.3.
--- OUTSIDE RECORDS SUMMARY | 2024-10-06 10:35 | XMS_ITS ---
Author Organization [facility] Address [address] [place] [address] Care Team Providers Care Veterinary Radiologist Name Role Phone Tae Duarte MD Primary Care Provider Neymar Sanders [phone] REASON FOR VISIT need new lab order faxed Encounters Encounter Location Date Provider Diagnosis [facility] [address] [place] [address] 02/22/2024 Neymar Sauer Crohn''s disease of both [...] Name:Neymar Sauer , 03/21/2025 10:20:00 AM, [address], [address], [place], [address], Progress Notes * EBEN BUNN ADOB:01/1955 (68 yo F)Acc No.[id number]:02/22/2024 Patient:?EBEN BUNN :1955???Age:68 Y???Sex:Female Address:[address] [place] [address] Subjective: * Chief Complaints: * ???Need new lab order faxed * Medical History:? * Surgical History:? * Hospitalization/Major Diagno stic Procedure:? * Medications:? Objective: Assessment: * Assessment: 1.?Crohn''s disease of both small and large intestine without complication - K50.80 (Primary)? Plan: * Treatment: ?LAB: CBC w DIFF* Monthly * Procedure Codes:? * true * Date:? Generated for Ct adame/Dexter/eTransmitting on:?10/06/2024 10:35 AM EDT
== END 2024-10-06 10:33 | disposition home or self-care (01) ==
LOC: HO.HMCH 09:47
PROVIDERS: PCP Internal Medicine; Visit Provider Internal Medicine
DX: F17.210 Nicotine dependence, cigarettes, uncomplicated (principal); K21.9 Gastro-esophageal reflux disease without esophagitis; R73.02 Impaired glucose tolerance (oral); F41.1 Generalized anxiety disorder; M81.0 Age-related osteoporosis without current pathological fracture

== ENCOUNTER → 2024-10-06 09:46 | Outpatient (BNVA) | payer MEDICARE, SELFPAY | PROVIDERS: PCP Internal Medicine; Visit Provider Internal Medicine | DX: K21.9 Gastro-esophageal reflux disease without esophagitis (principal); R73.02 Impaired glucose tolerance (oral); M81.0 Age-related osteoporosis without current pathological fracture; F41.1 Generalized anxiety disorder; F17.210 Nicotine dependence, cigarettes, uncomplicated; Z71.6 Tobacco abuse counseling | CPT/HCPCS: 99212 ==

== ENCOUNTER 2024-10-19 08:13 | Outpatient (AMB) | payer MEDICARE, SELFPAY ==
--- NOTE | 2024-10-19 08:17 | AM.OFFVISNUR ---
Intake Visit Reasons: B12 Shot Allergies Darvon Allergy (Intermediate, Verified 10/06/24 09:49) oral swelling Doxycycline Hyclate Allergy (Intermediate, Verified 10/06/24 09:49) diarrhea, severe diarrhea tetracycline [TETRACYCLINE] Allergy (Intermediate, Verified 10/06/24 09:49) Itching Office Meds cyanocobalamin (vitamin B-12) 1,000 mcg/mL injection solution Performing Provider: Tae Duarte MD [facility] Administered by: Remedios Baez RN on 10/19/24 08:17 Dose Route Admin Location Dispensed Lot Number Expiration Date NDC Crate Tier 1,000 mcg IM 1 mL [id number] 04/30/25 83789-152-80 [employer] Assessment & Plan Assessment & Plan Orders: Orders AMB Vitamin B12 Injection Patient Supplied Today E53.8 - Deficiency of other specified B group vitamins Medications: New cyanocobalamin (vitamin B-12) 1,000 mcg IM ONCE 1 mL 0RF E53.8 - Deficiency of other specified B group vitamins Coding
== END 2024-10-19 08:27 | disposition home or self-care (01) ==
LOC: HO.HMCH 08:14
PROVIDERS: PCP Internal Medicine; Visit Provider Internal Medicine
DX: E53.8 Deficiency of other specified B group vitamins (principal)

== ENCOUNTER 2024-10-19 08:13 | Outpatient (REF) | payer MEDICARE, SELFPAY ==
[2024-10-19 09:07] LABS: MANUAL DIFF FLAG NO
[2024-10-19 09:49] LABS: Basophils Absolute Auto 0.1 X10*3/uL (0.0-0.2); Eosinophils Absolute Auto 0.3 X10*3/uL (0.0-0.4); Eosinophils Percent Auto 5.8 % (0-4); Hematocrit 38.7 % (37.0-47.0); Hemoglobin 13.1 g/dl (12.0-16.0); Imm Gran Abs Auto 0.02 X10*3/uL (0.00-0.03); Imm Gran Pct Auto 0.4 % (0.0-0.4); Lymphocytes Absolute Auto 0.9 X10*3/uL (1.2-4.9); Lymphocytes Percent Auto 17.2 % (20-40); Mean Corpuscular HGB Conc 33.9 g/dl (31.0-35.0); Mean Corpuscular Hemoglobin 34.6 pg (27.0-33.0); Mean Corpuscular Volume 102.1 fL (80.0-98.0); Mean Platelet Volume 10.4 fL (9.4-12.3); Monocytes Absolute Auto 0.5 X10*3/uL (0.1-1.2); Monocytes Percent Auto 9.5 % (2-11); Neutrophils Absolute Auto 3.4 x10*3/uL (2.0-8.3); Neutrophils Percent Auto 66.1 % (45-73); Platelet Count 305 X10*3/uL (160-400); Red Blood Count 3.79 X10*6/uL (4.20-5.50); Red Cell Distribution Width 13.6 % (11.0-16.0); White Blood Count 5.2 X10*3/uL (4.8-10.8)
[2024-10-19 11:00] LABS: Appearance Urine Clear; Color Urine Yellow; Glucose Urine UA Negative (Negative); Leukocyte Esterase Urine Small (1+) (Negative); Nitrite Urine Negative (Negative); PH 5.5 (5.0-9.0); Specific Gravity - Urine <= 1.005 (1.005-1.025); UMIC TRIGGER UACC YES; Urine Blood Small (1+) (Negative); Urine Ketones Negative (Negative); Urine Protein Negative (Neg-Trace)
[2024-10-19 11:22] LABS: Bacteria Urine 3+ (None Seen); Hyaline Casts Urine 0-2 /LPF (0-2); Squamous Epithelial Cell Urine 0-2 /HPF (0-2); UACC Culture Trigger YES
[2024-10-19 12:21] LABS: Alanine Aminotransferase 21 U/L (0-31); Albumin Level 4.2 g/dL (3.5-5.0); Alkaline Phosphatase 78 U/L (39-117); Aspartate Amino Transferase 24 U/L (5-31); Bilirubin Direct 0.2 mg/dL (0.0-0.5); Bilirubin Total 0.4 mg/dL (0.0-1.0)
== END 2024-10-19 08:14 | disposition home or self-care (01) ==
LOC: HO.LABR 08:13
PROVIDERS: Absent Provider Internal Medicine; PCP Internal Medicine; Visit Provider Internal Medicine
DX: K50.80 Crohn's disease of both small and large intestine without complications (principal); E53.8 Deficiency of other specified B group vitamins; R30.0 Dysuria; R73.02 Impaired glucose tolerance (oral)
CPT/HCPCS: 36415; 80076; 81001; 81003; 85025; 87086; 87088; 87186; 96372; J3420

== ENCOUNTER 2024-10-24 12:11 | Inpatient (IN) | payer MEDICARE, SELFPAY ==
[2024-10-24] VITALS (16 sets, daily range): BP systolic 99–152; BP diastolic 49–85; PULSE 66–165; RESP 16–24; TEMP 36.8–39.1; O2SAT 95–100; BMI 21.5
--- NOTE | 2024-10-24 | ECG_ITS ---
Test Reason : A FIB Blood Pressure : */* mmHG Vent. Rate : 156 BPM Atrial Rate : * BPM P-R Int : * ms QRS Dur : 58 ms QT Int : 234 ms P-R-T Axes : * 70 111 degrees QTcB Int : 377 ms Atrial fibrillation with rapid ventricular response Septal infarct , age undetermined Abnormal ECG When compared with ECG of 24-Oct-2024 17:04, Atrial fibrillation has replaced Sinus rhythm Septal infarct is now Present ST now depressed in Anterior leads Referred By: Giuseppe Hou Electronically Signed By: Ministerio Fierro
--- NOTE | ~2024-10-24 | FL_ITS ---
EXAMINATION: FL GUIDANCE ONLY HISTORY: cystoscopy, ureteroscopy, laser, retrogrades, left COMPARISON: Correlation is made with an unenhanced CT of the abdomen and pelvis dated 10/24/2024. TECHNIQUE: Fluoroscopy time: 53.7 seconds. Cumulative Dose: 13.76 mGy. Images: 2. FINDINGS: Images demonstrate placement of a left nephroureteral stent. There is partial opacification of the left renal collecting system. There is an extrarenal pelvis. FL/FL guidance in OR IMPRESSION: Fluoroscopy during procedure. Please see procedure report for additional information. Electronically signed by: Neymar Toney MD 10/27/2024 07:02 AM EDT
--- NOTE | ~2024-10-24 | CT_ITS ---
CLINICAL HISTORY: Left flank pain UTI hx of stones CT abdomen and pelvis without contrast Comparison: CT/REG/SR - CT ABDOMEN PELVIS W IV CON - 11/05/22 00:06 EDT Findings: No consolidation or effusion. There is a 6 mm calculus within the left renal pelvis. This does not appear to be obstructive. There is mild pelviectasis. The left kidney is mildly enlarged. There are 2 additional tiny nonobstructive calculi within the left kidney. There is no ureteral calculus. There are several tiny nonobstructive calculi within the right kidney. Remaining abdominal organs are unremarkable. Prior cholecystectomy. No bowel obstruction, pneumoperitoneum, or pneumatosis. Unremarkable pelvic contents. Prior appendectomy. There is endplate irregularity at L1-L2 with slight interval progression since the prior study, most compatible with degenerative change. No acute fracture. IMPRESSION: 1. The left kidney is mildly enlarged and there is mild pelviectasis of the left kidney. Consider recently passed stone or pyelonephritis. 2. There are nonobstructive calculi within the bilateral kidneys. This document has been electronically signed by: Rosy Hylton MD on 10/24/2024 17:55:29
--- NOTE | ~2024-10-24 | US_ITS ---
CLINICAL HISTORY: abdominal pain US abdomen complete Comparison: CT/SR - CT ABDOMEN PELVIS WO IV CON - 10/24/24 15:14 EDT Findings: The visualized pancreas is normal. The aorta and inferior vena cava are normal caliber. The liver is mildly increased in size and echotexture. There is no intrahepatic bile duct dilatation. The common duct is 9 mm in diameter. The gallbladder is normal. There is no sonographic [place] sign. The main portal vein is antegrade. The right kidney is 11.9 cm in length. 5 mm lower pole calculus, nonobstructing. 14 mm benign cyst within the midpole. The left kidney is 11.6 cm in length. 4 mm midpole calculus. The spleen is normal. Bilateral pleural effusions are incidentally noted. IMPRESSION: No definite acute process. Mild hepatomegaly and hepatic steatosis. Nonobstructing bilateral renal calculi. Incidental trace pleural effusions. This document has been electronically signed by: Cezar Barajas MD on 10/30/2024 12:54:25
--- NOTE | ~2024-10-24 | XR_ITS ---
CLINICAL HISTORY: weakness 2 view chest x-ray Comparison: CT/SR - CT LUNG SCREENING - 07/22/24 09:26 EST Findings: Mild scarring within the bilateral upper lobes. The lungs are otherwise clear. Normal size heart. No acute fracture. IMPRESSION: 1. No acute findings. No pleural effusion. This document has been electronically signed by: Rosy Hylton MD on 10/24/2024 14:23:58
--- NOTE | ~2024-10-24 | XR_ITS ---
EXAMINATION: XR CHEST 2 VIEWS HISTORY: sob COMPARISON: Comparison is made with the prior examination dated 10/24/2024. FINDINGS: PA and lateral views of the chest are submitted. The lungs are expanded and clear. There are small bilateral pleural effusions. There is no pneumothorax or pulmonary vascular congestion. The heart is normal in size. The bones are intact. XR/XR chest 2V IMPRESSION: Small bilateral pleural effusions. Electronically signed by: Neymar Toney MD 10/28/2024 02:00 PM EDT
--- NOTE | 2024-10-24 12:17 | ED_ITS ---
HPI - General Adult General Chief complaint: General Medical Stated complaint: Flu Symptoms Time Seen by Provider: 10/24/24 14:41 History of Present Illness ED Provider: Milka SILVERMAN narrative: The patient is a 69-year-old woman who says that she has not felt well for about 6 days. She has had nausea, vomiting, chills, urinary discomfort, and left flank pain. She finally decided to come to the hospital today for these symptoms. She says that she has been having episodes of chills for which she has been taking Tylenol. No significant abdominal pain. Related Data Home Medications ?Medication ?Instructions ?Recorded ?Confirmed azathioprine 50 mg tablet 100 mg PO DAILY 04/24/20 10/06/24 omeprazole 20 mg capsule,delayed 20 mg PO DAILY 04/24/20 10/06/24 release betamethasone dipropionate 0.05 % 1 appl topical DAILY PRN Dry Skin 06/07/20 10/06/24 topical cream dicyclomine 10 mg capsule 10 mg PO DAILY 04/30/21 10/06/24 cholestyramine (with sugar) 4 gram ea PO 12/24/23 10/06/24 oral powder Previous Rx's ?Medication ?Instructions ?Recorded albuterol sulfate 90 mcg/actuation 1 inh inhalation QID #6.7 grams 02/15/24 aerosol inhaler raloxifene 60 mg tablet 60 mg PO DAILY #90 tabs 03/21/24 pyridoxine (vitamin B6) 100 mg 100 mg PO DAILY #90 tabs 03/23/24 tablet nitrofurantoin 100 mg PO Q12H 7 days #14 caps 08/03/24 monohydrate/macrocrystals 100 mg capsule (Macrobid) cyanocobalamin (vitamin B-12) 1,000 mcg IM Q4W 90 days #4 mL 08/14/24 1,000 mcg/mL injection solution buspirone 10 mg tablet 10 mg PO DAILY #90 tabs 09/07/24 cholecalciferol (vitamin D3) 50 50 mcg PO DAILY 90 days #90 caps 10/06/24 mcg (2,000 unit) capsule tramadol 50 mg tablet 50 mg PO DAILY 90 days #90 tabs 10/06/24 tramadol 50 mg tablet 50 mg PO DAILY 90 days #90 tabs 10/06/24 Allergies Allergy/AdvReac Type Severity Reaction Status Date / Time Darvon Allergy Intermediate oral Verified 10/24/24 12:16 swelling Doxycycline Hyclate Allergy Intermediate diarrhea, Verified 10/24/24 12:16 severe diarrhea tetracycline [TETRACYCLINE] Allergy Intermediate Itching Verified 10/24/24 12:16 Review of Systems 2 Review of Systems: Yes all other systems are reviewed and are negative [facility] Past Medical History Medical History Cellulitis and abscess of other specified site Osteoporosis Nicotine dependence, cigarettes, uncomplicated Breast cancer screening by mammogram Lip abscess Palpitations Flank pain Basal cell carcinoma Peptic ulcer disease Renal calculi Vitamin D deficiency Impaired glucose tolerance Anxiety and depression Anemia Asthma GERD (gastroesophageal reflux disease) Crohn's disease Surgical History History of tooth extraction History of surgical removal of ganglion cyst Hx of lithotripsy Hx of dilation and curettage Hx of cystoscopy History of hysteroscopy History of colonoscopy History of cholecystectomy Hx of appendectomy H/O tubal ligation History of lumpectomy of left breast S/P small bowel resection Social History Social History Housing: House Alcohol intake: current Alcohol intake frequency: does not drink Patient Tobacco Use Status: Current everyday Tobacco user Tobacco use type: Cigarette Cigarette Packs Per Day: 1 Cigarettes Per Day: 15 Years Smoked: 50 Smoked in Last 30 Days: No e-Cigarette/Vaping Use: Never Used Second Hand Smoke Exposure: Yes Use of substances other than those prescribed or required for medical reasons: No Advance Directives: Yes Advance Directives Information Provided: Yes Advance Directives on File: No Do you have a plan to hurt others: No Plan service: No Current occupational status: 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 Cognitive needs: No Hearing needs: No Vision needs: Yes Physical Exam ED Vital Signs: Vital Signs - 24 hr 10/24/24 12:14 10/24/24 14:46 10/24/24 14:57 Temperature 98.7 F 102.3 F H Pulse Rate 66 136 H Respiratory Rate 18 18 Blood Pressure 120/81 147/73 H 136/57 L Pulse Oximetry 98 98 Oxygen Delivery Method Room Air Room Air 10/24/24 15:36 10/24/24 15:51 10/24/24 16:11 Temperature 99.8 F Pulse Rate 106 H 165 H Respiratory Rate 18 Blood Pressure 124/64 122/61 Pulse Oximetry 97 Oxygen Delivery Method Room Air 10/24/24 16:19 10/24/24 16:59 10/24/24 18:08 Temperature 99.7 F 98.2 F Pulse Rate 164 H 110 H 94 Respiratory Rate 20 16 17 Blood Pressure 99/58 L 105/49 L 99/58 L Pulse Oximetry 96 99 96 Oxygen Delivery Method Room Air Room Air BMI result Body Mass Index 21.5 Const Other: The patient is awake and alert. She is quite frail looking. She looks dehydrated. She does not seem in obvious pain or respiratory distress but she looks somewhat acutely ill. HENMT Other: Face is symmetrical. Mucous membranes are dry. Eyes General: appearance normal, both eyes and all related structures Neck Neck: Yes normal visual inspection, Yes full ROM and Yes no JVD Resp Effort & Inspection: normal respiratory effort Auscultation: clear to auscultation bilaterally Cardio Other: The patient was tachycardic with a an irregular rate and rhythm. No definite murmur. GI Other: Abdomen is soft and nontender Back/Spine/Pelvis Other: Left-sided CVA percussion tenderness Skin Other: Skin is warm and dry. Neuro Other: The patient seems quite chronically frail. She is awake and alert with a normal mental status. Cranial nerves are grossly intact. She moves her extremities grossly normally. She seems grossly neurologically intact although she seems diffusely weak. Extrem General: Yes no pedal edema and Yes no calf tenderness Course Course Course Narrative: RME, this is a rapid medical exam performed by Thomas Dangelo please refer to primary provider for complete H&P- 69-year-old female with a past medical history significant for osteoporosis, GERD, Crohn's disease presents for evaluation of weakness, flu-like symptoms and dizziness. Patient reports her symptoms started 5 days ago on Thursday. She is very unsteady on her feet. She reports she had a headache a few days ago when her flu-like symptoms arrived they are worse but currently does not have a headache. Plan for EKG, labs, chest x-ray and urinalysis. Medications Administered Discontinued Medications Generic Name Dose Route Start Last Admin Trade Name Freq PRN Reason Stop Dose Admin Ceftriaxone Sodium 1 gm 10/24/24 14:50 10/24/24 15:10 Ceftriaxone Sodium 1 Gm Vial IVPUSH 10/24/24 14:51 1 gm ONCE ONE Administration Diltiazem HCl 10 mg 10/24/24 16:43 10/24/24 17:30 Diltiazem Hcl 50 Mg/10 Ml Vial IVPUSH 10/24/24 16:44 Not Given STAT STA Sodium Chloride 1,700.97 mls @ 1,700.97 mls/hr 10/24/24 14:52 10/24/24 16:10 Ns 30 ml/kg infuse over 1 hr (1700.97 ml) 10/24/24 15:51 Infused IV Infusion .Q1H STA Acetaminophen 1,000 mg in 100 mls @ 400 mls/hr 10/24/24 14:54 10/24/24 15:31 Ofirmev IV 10/24/24 15:08 Infused ONCE ONE Infusion Lactated Ringer's 1,000 mls @ 999 mls/hr 10/24/24 16:30 10/24/24 17:08 Lr IV 10/24/24 17:30 Infused .Q1H1M SANDRA Infusion Calcium Gluconate 2 gm in 100 mls @ 400 mls/hr 10/24/24 16:43 10/24/24 17:30 Calcium Gluconate IV 10/24/24 16:57 Not Given ONCE ONE Lactated Ringer's 1,000 mls @ 999 mls/hr 10/24/24 17:15 10/24/24 18:08 Lr IV 10/24/24 18:15 Infused .Q1H1M SANDRA Infusion Medical Decision Making Medical Decision Making [facility] Narrative: The patient is a 69-year-old female who has been sick for 5 or 6 days. Here she was significantly febrile and tachycardic. She was frequently quite tachycardic and it was difficult to determine whether her rhythm was sinus rhythm with a lot of ectopy or whether there was any component of intermittent atrial fibrillation. Ultimately, with acetaminophen and IV fluids, her heart rate slowed down. With her slower heart rates it seemed the parent that she is in a sinus rhythm with frequent PACs but when her heart rate was more rapid it was more difficult of the rhythm. The patient has a urinalysis consistent with a UTI. I think she has clinical evidence of pyelonephritis with left-sided percussion tenderness. Her renal function is considerably worse than typical. She normally has normal renal function. Today her GFR is 28. A CT scan without contrast (no contrast because of her renal function) shows findings potentially consistent with a pyelonephritis. There are kidney stones but no definite obstructing stones. The patient was treated with IV ceftriaxone and IV fluids. She will be admitted for further care. Lab Data 10/24/24 12:43 10/24/24 12:43 Labs: Lab Results 10/24/24 10/24/24 10/24/24 Range/Units 12:43 14:43 14:51 WBC 10.4 (4.8-10.8) X10*3/uL RBC 3.68 L (4.20-5.50) X10*6/uL Hgb 12.5 (12.0-16.0) g/dl Hct 35.7 L (37.0-47.0) % MCV 97.0 D (80.0-98.0) fL MCH 34.0 H (27.0-33.0) pg MCHC 35.0 (31.0-35.0) g/dl RDW 14.6 (11.0-16.0) % Plt Count 139 L D (160-400) X10*3/uL MPV 12.0 (9.4-12.3) fL Immature Gran % (Auto) Cancelled Neut % (Auto) Cancelled Lymph % (Auto) Cancelled [place] % (Auto) Cancelled Eos % (Auto) Cancelled Baso % (Auto) Cancelled Lymph # (Auto) Cancelled [place] # (Auto) Cancelled Eos # (Auto) Cancelled Baso # (Auto) Cancelled Abs Immat Gran (auto) Cancelled Absolute Neuts (auto) Cancelled Absolute Nucleated RBC 0.000 (0.0-0.012) X10*3/uL Nucleated RBC % (auto) 0.0 (0.0-0.2) /100WBC Neutrophils % (Manual) 78 H (45-73) % Band Neutrophils % 9 H (3-5) % Lymphocytes % (Manual) 5 L (20-40) % Monocytes % (Manual) 8 (2-11) % Abs Neuts (Manual) 9.0 H (2.0-8.3) X10*3/uL Lymphocytes # (Manual) 0.5 L (1.2-4.9) X10*3/uL Monocytes # (Manual) 0.8 (0.1-1.2) X10*3/uL Toxic Granulation PRESENT Toxic Vacuolation PRESENT Dohle Bodies PRESENT Platelet Estimate SLIGHTLY DECREASED (NORMAL) Large Platelets PRESENT Plt Morphology Comment NOTED RBC Morphology NOTED Macrocytosis 1+ (5-14) /OIF [place] Cells 2+ (3-5) /OIF Sodium 134 L (135-145) mmol/L Potassium 3.3 (3.3-5.1) mmol/L Chloride 98 (96-108) mmol/L Carbon Dioxide 24 (22-29) mmol/L Anion Gap 15 (12-20) BUN 49 H (9-16) mg/dL Creatinine 1.78 H (0.5-1.4) mg/dL Estim Creat Clear Calc 25.3 Estimated GFR 28 Random Glucose 137 H (60-115) mg/dL Lactic Acid (0.5-2.0) mmol/L Calcium 9.4 (8.4-10.2) mg/dL Total Bilirubin 1.2 H (0.0-1.0) mg/dL AST 23 (5-31) U/L ALT 12 (0-31) U/L Alkaline Phosphatase 101 (39-117) U/L Troponin I High Sens 34.7 H (<3.5-17.0) ng/L Total Protein 6.7 (6.5-8.0) g/dL Albumin 3.4 L (3.5-5.0) g/dL Lipase 9 (8-78) U/L Urine Color Dark Yellow Urine Appearance Cloudy Urine pH 5.5 (5.0-9.0) Ur Specific [employer] 1.020 (1.005-1.025) Urine Protein 300 (3+) H (Neg-Trace) mg/dL Urine Glucose (UA) Negative (Negative) mg/dL Urine Ketones Trace (Negative) mg/dL Urine Blood Large (3+) H (Negative) Urine Nitrite Negative (Negative) Ur Leukocyte Esterase Moderate (2+) H (Negative) Urine RBC >20 H (0-2) /HPF Urine WBC >50 H (0-5) /HPF Ur Squamous Epith Cells 0-2 (0-2) /HPF Urine Bacteria 4+ (None Seen) Hyaline Casts 3-5 (0-2) /LPF Influenza Type A (PCR) NEGATIVE (Negative) Influenza Type B (PCR) NEGATIVE (Negative) RSV RNA Qual (PCR) NEGATIVE (Negative) SARS-CoV-2 RNA (RT-PCR) NEGATIVE (Negative) 10/24/24 Range/Units 15:05 WBC (4.8-10.8) X10*3/uL RBC (4.20-5.50) X10*6/uL Hgb (12.0-16.0) g/dl Hct (37.0-47.0) % MCV (80.0-98.0) fL MCH (27.0-33.0) pg MCHC (31.0-35.0) g/dl RDW (11.0-16.0) % Plt Count (160-400) X10*3/uL MPV (9.4-12.3) fL Immature Gran % (Auto) Neut % (Auto) Lymph % (Auto) [place] % (Auto) Eos % (Auto) Baso % (Auto) Lymph # (Auto) [place] # (Auto) Eos # (Auto) Baso # (Auto) Abs Immat Gran (auto) Absolute Neuts (auto) Absolute Nucleated RBC (0.0-0.012) X10*3/uL Nucleated RBC % (auto) (0.0-0.2) /100WBC Neutrophils % (Manual) (45-73) % Band Neutrophils % (3-5) % Lymphocytes % (Manual) (20-40) % Monocytes % (Manual) (2-11) % Abs Neuts (Manual) (2.0-8.3) X10*3/uL Lymphocytes # (Manual) (1.2-4.9) X10*3/uL Monocytes # (Manual) (0.1-1.2) X10*3/uL Toxic Granulation Toxic Vacuolation Dohle Bodies Platelet Estimate (NORMAL) Large Platelets Plt Morphology Comment RBC Morphology Macrocytosis /OIF [place] Cells /OIF Sodium (135-145) mmol/L Potassium (3.3-5.1) mmol/L Chloride (96-108) mmol/L Carbon Dioxide (22-29) mmol/L Anion Gap (12-20) BUN (9-16) mg/dL Creatinine (0.5-1.4) mg/dL Estim Creat Clear Calc Estimated GFR Random Glucose (60-115) mg/dL Lactic Acid 1.8 (0.5-2.0) mmol/L Calcium (8.4-10.2) mg/dL Total Bilirubin (0.0-1.0) mg/dL AST (5-31) U/L ALT (0-31) U/L Alkaline Phosphatase (39-117) U/L Troponin I High Sens (<3.5-17.0) ng/L Total Protein (6.5-8.0) g/dL Albumin (3.5-5.0) g/dL Lipase (8-78) U/L Urine Color Urine Appearance Urine pH (5.0-9.0) Ur Specific University (1.005-1.025) Urine Protein (Neg-Trace) mg/dL Urine Glucose (UA) (Negative) mg/dL Urine Ketones (Negative) mg/dL Urine Blood (Negative) Urine Nitrite (Negative) Ur Leukocyte Esterase (Negative) Urine RBC (0-2) /HPF Urine WBC (0-5) /HPF Ur Squamous Epith Cells (0-2) /HPF Urine Bacteria (None Seen) Hyaline Casts (0-2) /LPF Influenza Type A (PCR) (Negative) Influenza Type B (PCR) (Negative) RSV RNA Qual (PCR) (Negative) SARS-CoV-2 RNA (RT-PCR) (Negative) Independent Interpretation I performed an independent interpretation of an: EKG Interpretation: EKG at 12:35 shows what I suspect is a sinus rhythm with a bigeminy pattern. The ventricular rate is 121 beats per minute. No definite acute ischemic changes. Critical Care Time Critical Care Time Critical Care Time: Yes Total Critical Care Time: 35 Attestation: The patient was critically ill with a high probability of imminent or life- threatening deterioration. ?I spent greater than 30 minutes of discontinuous time evaluating the patient, delivering critical care at the bedside, discussing evaluating data with consultants. ?Critical care time does not include time spent performing separately billable procedures or teaching. ?Time spent performing critical care with 35 minutes. Discharge Plan Discharge Clinical Impression: Pyelonephritis of left kidney, Acute kidney injury, Ectopic cardiac beats Patient Disposition: Admitted As Inpatient
--- NOTE | 2024-10-24 12:17 | ECG_ITS ---
Test Reason : WEAKNESS Blood Pressure : */* mmHG Vent. Rate : 121 BPM Atrial Rate : 178 BPM P-R Int : 154 ms QRS Dur : 78 ms QT Int : 302 ms P-R-T Axes : 91 43 86 degrees QTcB Int : 428 ms Sinus tachycardia with Premature atrial complexes Nonspecific T wave abnormality Abnormal ECG When compared with ECG of 13-Nov-2020 08:36, Premature atrial complexes are now Present Vent. rate has increased by 42 bpm Referred By: Bud Dangelo Electronically Signed By: Ministerio Fierro
[2024-10-24 13:02] LABS: Alanine Aminotransferase 12 U/L (0-31); Albumin Level 3.4 g/dL (3.5-5.0); Alkaline Phosphatase 101 U/L (39-117); Anion Gap 15 (12-20); Aspartate Amino Transferase 23 U/L (5-31); Bilirubin Total 1.2 mg/dL (0.0-1.0); Blood Urea Nitrogen 49 mg/dL (9-16); Calcium 9.4 mg/dL (8.4-10.2); Carbon Dioxide 24 mmol/L (22-29); Chloride 98 mmol/L (96-108); Creatinine Clr Calc Pharmacy 25.3; Estimated Glomerular Filt Rate 28; Glucose Random 137 mg/dL (60-115); Lipase 9 U/L (8-78); Potassium 3.3 mmol/L (3.3-5.1); Sodium 134 mmol/L (135-145); Total Protein 6.7 g/dL (6.5-8.0)
[2024-10-24 13:10] LABS: Hematocrit 35.7 % (37.0-47.0); Hemoglobin 12.5 g/dl (12.0-16.0); Red Blood Count 3.68 X10*6/uL (4.20-5.50); Red Cell Distribution Width 14.6 % (11.0-16.0)
[2024-10-24 13:11] LABS: WBC ABN SCTR FOR CBC 1
[2024-10-24 13:33] LABS: Band Neutrophils Percent 9 % (3-5); Influenza A PCR NEGATIVE (Negative); Influenza B PCR NEGATIVE (Negative); Lymphocytes Percent Manual 5 % (20-40); Monocytes Percent Manual 8 % (2-11); Neutrophils Percent Manual 78 % (45-73); Resp Syncy Virus RNA Qual PCR NEGATIVE (Negative); SARS COV2 PCR INHOUSE NEGATIVE (Negative)
[2024-10-24 13:34] LABS: Macrocytosis 1+ (5-14) /OIF; RBC Morphology NOTED
[2024-10-24 13:35] LABS: Burr Cells 2+ (3-5) /OIF; Dohle Bodies PRESENT
[2024-10-24 13:36] LABS: Toxic Granulation PRESENT
[2024-10-24 13:37] LABS: Toxic Vacuolation PRESENT
[2024-10-24 13:39] LABS: Lymphocytes Absolute Manual 0.5 X10*3/uL (1.2-4.9); Monocytes Absolute Manual 0.8 X10*3/uL (0.1-1.2); White Blood Count 10.4 X10*3/uL (4.8-10.8)
[2024-10-24 13:43] LABS: Large Platelet PRESENT; Platelet Count 139 X10*3/uL (160-400); Platelet Estimate SLIGHTLY DECREASED (NORMAL); Platelet Morphology Comment NOTED
--- NOTE | 2024-10-24 14:37 | ECG_ITS ---
Test Reason : AFIB Blood Pressure : */* mmHG Vent. Rate : 140 BPM Atrial Rate : 140 BPM P-R Int : 150 ms QRS Dur : 78 ms QT Int : 274 ms P-R-T Axes : 76 52 85 degrees QTcB Int : 418 ms Sinus tachycardia with Premature atrial complexes ST & T wave abnormality, consider lateral ischemia Abnormal ECG When compared with ECG of 24-Oct-2024 12:35, T wave inversion now evident in Lateral leads Referred By: Generic ED Physician Electronically Signed By: Ministerio Fierro
[2024-10-24 14:59] LABS: Appearance Urine Cloudy; Color Urine Dark Yellow; Glucose Urine UA Negative (Negative); Leukocyte Esterase Urine Moderate (2+) (Negative); Nitrite Urine Negative (Negative); PH 5.5 (5.0-9.0); UMIC TRIGGER UACC YES; Urine Blood Large (3+) (Negative); Urine Ketones Trace mg/dL (Negative); Urine Protein 300 (3+) mg/dL (Neg-Trace)
[2024-10-24 15:01] LABS: Bacteria Urine 4+ (None Seen); RBC Urine >20 /HPF (0-2); Squamous Epithelial Cell Urine 0-2 /HPF (0-2); UACC Culture Trigger YES; WBC Urine >50 /HPF (0-5)
[2024-10-24] MEDS: 0.9 % Sodium Chloride 1,700.97 ML 1700.97 ML IV (15:10)
[2024-10-24] MEDS: cefTRIAXone sodium 1 GM VIAL IVPUSH (15:10)
[2024-10-24 15:16] LABS: Troponin-I High Sensitivity 34.7 ng/L (<3.5-17.0)
[2024-10-24] MEDS: Acetaminophen 1,000 MG/100 ML PIGGYBACK 400 MG IV (15:16)
--- NOTE | 2024-10-24 15:18 | PC.NURSE ---
pt taken to CT
[2024-10-24 15:25] LABS: Lactic Acid 1.8 mmol/L (0.5-2.0)
[2024-10-24] MEDS: Lactated Ringers 1,000 ML 999 ML IV ×2 (16:21→17:07)
--- NOTE | 2024-10-24 16:25 | ECG_ITS ---
Test Reason : REPEAT Blood Pressure : */* mmHG Vent. Rate : 126 BPM Atrial Rate : * BPM P-R Int : * ms QRS Dur : 76 ms QT Int : 362 ms P-R-T Axes : * 42 39 degrees QTcB Int : 524 ms Atrial fibrillation with rapid ventricular response with premature ventricular or aberrantly conducted complexes Nonspecific T wave abnormality Abnormal ECG When compared with ECG of 24-Oct-2024 14:42, Atrial fibrillation has replaced Sinus rhythm Nonspecific T wave abnormality now evident in Anterior leads Nonspecific T wave abnormality has replaced inverted T waves in Lateral leads Referred By: Sebastian Jarquin Electronically Signed By: Ministerio Fierro
--- NOTE | 2024-10-24 17:01 | ECG_ITS ---
Test Reason : REPEAT Blood Pressure : */* mmHG Vent. Rate : 109 BPM Atrial Rate : 109 BPM P-R Int : 200 ms QRS Dur : 80 ms QT Int : 330 ms P-R-T Axes : 74 39 80 degrees QTcB Int : 444 ms Sinus tachycardia Nonspecific T wave abnormality Abnormal ECG When compared with ECG of 24-Oct-2024 16:27, Sinus rhythm has replaced Atrial fibrillation Nonspecific T wave abnormality no longer evident in Inferior leads Nonspecific T wave abnormality no longer evident in Anterior leads Referred By: Sebastian Jarquin Electronically Signed By: Ministerio Fierro
--- NOTE | 2024-10-24 17:07 | PC.NURSE ---
Pt reports felling better no chills any more HR has slowed enought w/o diltiazem to see that P waves are present. Doc Krogus at bedside and repeat EKG obtained. Pt denies dizziness. Pain left abd is improved.
--- NOTE | 2024-10-24 18:31 | PM.IMHP ---
History of Present Illness Date of Service: 10/24/24 Chief Complaint: weakness 69F PMH crohns, nephrolithiasis, presented with weakness. Patient states she has been feeling unwell for the past 5 days. Reports dysuria, chills, left flank pain. Has history of nephrolithiasis on the left side. Has not taken anything at home. Finally decided to come to the ED and she felt so weak and could not ambulate. In ED found to be septic with fever, tachycardia, positive UA, acute kidney injury, CT abdomen with left kidney mildly enlarged and mild pelviectasis consistent with recently passed stone versus pyelonephritis. On telemetry has been having frequent PACs Review of Systems Review of Systems: Yes all other systems are reviewed and are negative [facility] Medical History Cellulitis and abscess of other specified site Osteoporosis Nicotine dependence, cigarettes, uncomplicated Breast cancer screening by mammogram Lip abscess Palpitations Flank pain Basal cell carcinoma Peptic ulcer disease Renal calculi Vitamin D deficiency Impaired glucose tolerance Anxiety and depression Anemia Asthma GERD (gastroesophageal reflux disease) Crohn's disease Surgical History History of tooth extraction History of surgical removal of ganglion cyst Hx of lithotripsy Hx of dilation and curettage Hx of cystoscopy History of hysteroscopy History of colonoscopy History of cholecystectomy Hx of appendectomy H/O tubal ligation History of lumpectomy of left breast S/P small bowel resection Social History Housing: House Alcohol intake: current Alcohol intake frequency: does not drink Patient Tobacco Use Status: Current everyday Tobacco user Tobacco use type: Cigarette Cigarette Packs Per Day: 1 Cigarettes Per Day: 15 Years Smoked: 50 Smoked in Last 30 Days: No e-Cigarette/Vaping Use: Never Used Second Hand Smoke Exposure: Yes Use of substances other than those prescribed or required for medical reasons: No Advance Directives: Yes Advance Directives Information Provided: Yes Advance Directives on File: No Do you have a plan to hurt others: No Plan service: No Current occupational status: 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 Cognitive needs: No Hearing needs: No Vision needs: Yes Meds Allergies Allergy/AdvReac Type Severity Reaction Status Date / Time Darvon Allergy Intermediate oral Verified 10/24/24 12:16 swelling Doxycycline Hyclate Allergy Intermediate diarrhea, Verified 10/24/24 12:16 severe diarrhea tetracycline [TETRACYCLINE] Allergy Intermediate Itching Verified 10/24/24 12:16 Active Medications: Current Medications Acetaminophen (Acetaminophen 325 Mg Tablet) 650 mg PO Q6H PRN PRN Reason: Pain, Mild 1-3,fever,headache Calcium Carbonate (Calcium Carbonate 750 Mg Tab.Chew) 750 mg PO Q4H PRN PRN Reason: Heartburn Ceftriaxone Sodium (Ceftriaxone Sodium 1 Gm Vial) 1 gm IVPUSH Q24H SANDRA Enoxaparin Sodium (Enoxaparin Sodium 40 Mg/0.4 Ml Syringe) 40 mg SUBCUT Q24H SANDRA Magnesium Hydroxide (Milk Of Magnesia 30 Ml Oral.Susp) 30 ml PO DAILY PRN PRN Reason: Constipation Melatonin (Melatonin 3 Mg Tablet) 6 mg PO BEDTIME PRN PRN Reason: Insomnia Sodium Chloride (0.9 % Sodium Chloride Flush 3 Ml Syringe) 3 ml IVFLUSH QSHIFT SANDRA Home Medications ?Medication ?Instructions ?Recorded ?Confirmed ?Last Taken ?Type azathioprine 50 mg tablet 100 mg PO DAILY 04/24/20 10/06/24 04/01/22 History omeprazole 20 mg capsule,delayed 20 mg PO DAILY 04/24/20 10/06/24 10/28/23 History release betamethasone dipropionate 0.05 % 1 appl topical DAILY PRN Dry Skin 06/07/20 10/06/24 04/01/22 History topical cream dicyclomine 10 mg capsule 10 mg PO DAILY 04/30/21 10/06/24 04/01/22 History cholestyramine (with sugar) 4 gram ea PO 12/24/23 10/06/24 Unknown History oral powder Physical Exam Vital Signs and Narrative: Vital Signs: Last Vital Signs Temp 98.2 F 10/24/24 18:08 Pulse 94 10/24/24 18:08 Resp 17 10/24/24 18:08 BP 99/58 L 10/24/24 18:08 Pulse Ox 96 10/24/24 18:08 O2 Del Method Room Air 10/24/24 18:08 BMI result Body Mass Index 21.5 General: AO X 3, no acute distress Resp: CTA bilateral, no accessory muscles used CVS: S1,S2,RRR GI: soft, non tender, non distended Neuro: motor grossly intact, alert Psych: appropriate affect, appropriate insight Left flank tenderness Results Labs 10/24/24 12:43 10/24/24 12:43 Labs: Laboratory Results - last 24 hr 10/24/24 10/24/24 10/24/24 12:43 14:51 15:05 MCV 97.0 D MCH 34.0 H MCHC 35.0 RDW 14.6 Plt Count 139 L D MPV 12.0 Immature Gran % (Auto) Cancelled Neut % (Auto) Cancelled Lymph % (Auto) Cancelled [place] % (Auto) Cancelled Eos % (Auto) Cancelled Baso % (Auto) Cancelled Lymph # (Auto) Cancelled [place] # (Auto) Cancelled Eos # (Auto) Cancelled Baso # (Auto) Cancelled Abs Immat Gran (auto) Cancelled Absolute Neuts (auto) Cancelled Absolute Nucleated RBC 0.000 Nucleated RBC % (auto) 0.0 Neutrophils % (Manual) 78 H Band Neutrophils % 9 H Lymphocytes % (Manual) 5 L Monocytes % (Manual) 8 Abs Neuts (Manual) 9.0 H Lymphocytes # (Manual) 0.5 L Monocytes # (Manual) 0.8 Toxic Granulation PRESENT Toxic Vacuolation PRESENT Dohle Bodies PRESENT Platelet Estimate SLIGHTLY DECREASED Large Platelets PRESENT Plt Morphology Comment NOTED RBC Morphology NOTED Macrocytosis 1+ (5-14) [place] Cells 2+ (3-5) Anion Gap 15 Estim Creat Clear Calc 25.3 Estimated GFR 28 Random Glucose 137 H Lactic Acid 1.8 Calcium 9.4 Total Bilirubin 1.2 H AST 23 ALT 12 Alkaline Phosphatase 101 Total Protein 6.7 Albumin 3.4 L Lipase 9 Urine Color Dark Yellow Urine Appearance Cloudy Urine pH 5.5 Ur Specific [place] 1.020 Urine Protein 300 (3+) H Urine Glucose (UA) Negative Urine Ketones Trace Urine Blood Large (3+) H Urine Nitrite Negative Ur Leukocyte Esterase Moderate (2+) H Urine RBC >20 H Urine WBC >50 H Ur Squamous Epith Cells 0-2 Urine Bacteria 4+ Hyaline Casts 3-5 Influenza Type A (PCR) NEGATIVE Influenza Type B (PCR) NEGATIVE RSV RNA Qual (PCR) NEGATIVE SARS-CoV-2 RNA (RT-PCR) NEGATIVE Assessment and Plan (1) Crohn's disease: Qualifiers: Gastrointestinal tract location: large intestine Digestive disease complication type: without complication Qualified Code(s): K50.10 - Crohn's disease of large intestine without complications Status: Acute Plan 69F PMH crohns, nephrolithiasis, presented with weakness Sepsis due to acute pyelonephritis likely due to passed left ureteral stone IV ceftriaxone, follow up cultures, Urology eval Acute kidney injury Due to above Received 30 cc/kilos, follow up BMP Sinus tachycardia with frequent PACs Not AFib, monitor on tele Crohn's Stable DVT prophylaxis with Lovenox Full Code Quality Stroke Does the patient have a stroke diagnosis?: No VTE Prior VTE?: No VTE Risk Level:: Medical - moderate - high VTE Device Contraindication: Treatment Not Indicated VTE Drug Contraindication: N/A - Med Ordered
--- NOTE | 2024-10-24 20:19 | PC.NURSE ---
pt c/o 11/08 left flank pain- MD notified via [employer]
[2024-10-24] MEDS: HYDROmorphone HCl 0.5 MG/0.5 ML SYRINGE IVPUSH (20:45)
--- NOTE | 2024-10-24 20:45 | PC.NURSE ---
patient's HR increased, patient also c/o increased pain and +SOB, +tremulous, VSS, afebrile, MD made aware, will repeat EKG and administer medication as ordered and reassess for effect
[2024-10-24] MEDS: Metoprolol Tartrate 5 MG/5 ML VIAL IVPUSH (21:13)
--- NOTE | 2024-10-24 21:43 | PC.NURSE ---
+effect post administration of ordered medication, patient reports that her pain has improved, appears to be resting much more comfortably, Metoprolol also administered as ordered with +effect, patient's HR has improved and patient is resting much more comfortably on stretcher, respirations even and unlabored, VSS, remains on full surveillance monitor for continuous observation, awaiting admission, tm
--- NOTE | 2024-10-24 21:47 | PC.NURSE ---
contact info for son Srikanth) [phone]
[2024-10-24] MEDS: Metoprolol Tartrate 25 MG TABLET PO (22:18)
[2024-10-25] VITALS (17 sets, daily range): BP systolic 91–149; BP diastolic 51–89; PULSE 73–155; RESP 16–30; TEMP 36.5–38.4; O2SAT 94–100; BMI 23.5
--- NOTE | 2024-10-25 | ECG_ITS ---
Test Reason : afib Blood Pressure : */* mmHG Vent. Rate : 127 BPM Atrial Rate : 127 BPM P-R Int : 146 ms QRS Dur : 72 ms QT Int : 322 ms P-R-T Axes : 61 55 66 degrees QTcB Int : 467 ms Poor data quality Sinus tachycardia with Premature supraventricular complexes Nonspecific T wave abnormality Abnormal ECG When compared with ECG of 24-Oct-2024 21:03, Poor data quality in current ECG precludes serial comparison Criteria for Septal infarct are no longer Present ST less depressed in Anterior leads Referred By: Bruce Sandhu Electronically Signed By: CHAPITO FRANCE MD
[2024-10-25] MEDS: Acetaminophen 325 MG TABLET 650 MG PO ×2 (01:23→10:04)
[2024-10-25] MEDS: 0.9 % Sodium Chloride Flush 3 ML SYRINGE IVFLUSH ×3 (01:28→16:48)
[2024-10-25] MEDS: Lactated Ringers 1,000 ML 999 ML IV (01:28)
[2024-10-25 04:34] LABS: Glucose, Whole Blood 103 mg/dL (60-115)
--- NOTE | 2024-10-25 05:53 | PC.NURSE ---
report given to SIVAN Rodriguez. Patient transferred to room 20 in stable condition
[2024-10-25 05:57] LABS: Hemoglobin 10.2 g/dl (12.0-16.0); Mean Corpuscular Volume 97.6 fL (80.0-98.0)
[2024-10-25 05:58] LABS: Hematocrit 28.9 % (37.0-47.0); Mean Corpuscular HGB Conc 35.3 g/dl (31.0-35.0); Mean Corpuscular Hemoglobin 34.5 pg (27.0-33.0); Mean Platelet Volume 11.4 fL (9.4-12.3); PLT CLUMP 1; Red Blood Count 2.96 X10*6/uL (4.20-5.50); Red Cell Distribution Width 15.3 % (11.0-16.0)
[2024-10-25 05:59] LABS: White Blood Count 8.6 X10*3/uL (4.8-10.8)
[2024-10-25 06:05] LABS: Anion Gap 12 (12-20); Blood Urea Nitrogen 40 mg/dL (9-16); Calcium 8.3 mg/dL (8.4-10.2); Carbon Dioxide 22 mmol/L (22-29); Chloride 107 mmol/L (96-108); Creatinine Clr Calc Pharmacy 32.5; Estimated Glomerular Filt Rate 37; Glucose Random 106 mg/dL (60-115); Potassium 3.4 mmol/L (3.3-5.1); Sodium 138 mmol/L (135-145)
--- NOTE | 2024-10-25 07:40 | PC.NURSE ---
Pt HR noted to be 130s-160s afib on threat monitoring analyst. Pt asymptomatic- denies cp/pressure/pain on palpation. Endorsing mild sob with position changes. MD Sandhu made aware, repeat EKG ordered and obtained. Vitals updated in worklist, BP remains stable 130s/60s. Per MD Sandhu, plan for Lopressor. Pt medicated per JUL for 6/10 pain to neck/upper back.
--- NOTE | 2024-10-25 07:40 | PC.NURSE ---
Addendum entered by Cristiaan Craft 10/25/24 07:49: Pt denies cp/palpitations/pain on palpitation. Endorsing mild sob with position changes. MD Sandhu aware, repeat EKG obtained. Vitals updated in worklist, BP remains stable 130s/60s. Per MD Sandhu, plan for Lopressor. Pt medicated per JUL for 6/10 pain to neck/upper back. Original Note: Pt HR noted to be 130s-160s afib on teletypesetter monitor. MD Sandhu made aware, repeat EKG ordered.
[2024-10-25] MEDS: HYDROmorphone HCl 0.5 MG/0.5 ML SYRINGE IVPUSH (07:46)
[2024-10-25] MEDS: Metoprolol Tartrate 5 MG/5 ML VIAL IVPUSH (07:59)
--- NOTE | 2024-10-25 08:17 | P.PNIM_ITS ---
Subjective Subjective Date of Service: 10/25/24 Interval History: palpitations Physical Exam 2 Vital Signs: Vital Signs: Last Vital Signs Temp 98.0 F 10/25/24 05:46 Pulse 117 H 10/25/24 08:03 Resp 19 10/25/24 08:03 BP 122/63 10/25/24 08:03 Pulse Ox 96 10/25/24 08:03 O2 Del Method Room Air 10/25/24 08:03 O2 Flow Rate 2 10/25/24 07:41 BMI result Body Mass Index 21.5 General: AO X 3, no acute distress Resp: CTA bilateral, no accessory muscles used CVS: S1,S2,Rapid irregular GI: soft, non tender, non distended Neuro: motor grossly intact, alert Psych: appropriate affect, appropriate insight Objective Data Active Medications Acetaminophen (Acetaminophen 325 Mg Tablet) 650 mg PO Q6H PRN PRN Reason: Pain, Mild 1-3,fever,headache Last Admin: 10/25/24 01:23 Dose: 650 mg Documented By: SIL Calcium Carbonate (Calcium Carbonate 750 Mg Tab.Chew) 750 mg PO Q4H PRN PRN Reason: Heartburn Ceftriaxone Sodium (Ceftriaxone Sodium 1 Gm Vial) 1 gm IVPUSH Q24H SANDRA Enoxaparin Sodium (Enoxaparin Sodium 40 Mg/0.4 Ml Syringe) 40 mg SUBCUT Q24H SANDRA Hydromorphone HCl (Hydromorphone Hcl 0.5 Mg/0.5 Ml Syringe) 0.5 mg IVPUSH Q3H PRN; Protocol PRN Reason: Pain, Moderate(Pain Scale 4-6) Last Admin: 10/25/24 07:46 Dose: 0.5 mg Documented By: NAVYA Magnesium Hydroxide (Milk Of Magnesia 30 Ml Oral.Susp) 30 ml PO DAILY PRN PRN Reason: Constipation Melatonin (Melatonin 3 Mg Tablet) 6 mg PO BEDTIME PRN PRN Reason: Insomnia Metoprolol Tartrate (Metoprolol Tartrate 25 Mg Tablet) 25 mg PO BID [facility]; Protocol Last Admin: 10/24/24 22:18 Dose: 25 mg Documented By: SIL Sodium Chloride (0.9 % Sodium Chloride Flush 3 Ml Syringe) 3 ml IVFLUSH QSHIFT [facility] Last Admin: 10/25/24 07:59 Dose: 3 ml Documented By: NAVYA Labs 10/25/24 05:44 10/25/24 05:44 Labs: Laboratory Results - last 24 hr 10/24/24 10/24/24 10/24/24 12:43 14:51 15:05 MCV 97.0 D MCH 34.0 H MCHC 35.0 RDW 14.6 Plt Count 139 L D MPV 12.0 Immature Gran % (Auto) Cancelled Neut % (Auto) Cancelled Lymph % (Auto) Cancelled [place] % (Auto) Cancelled Eos % (Auto) Cancelled Baso % (Auto) Cancelled Lymph # (Auto) Cancelled [place] # (Auto) Cancelled Eos # (Auto) Cancelled Baso # (Auto) Cancelled Abs Immat Gran (auto) Cancelled Absolute Neuts (auto) Cancelled Absolute Nucleated RBC 0.000 Nucleated RBC % (auto) 0.0 Neutrophils % (Manual) 78 H Band Neutrophils % 9 H Lymphocytes % (Manual) 5 L Monocytes % (Manual) 8 Abs Neuts (Manual) 9.0 H Lymphocytes # (Manual) 0.5 L Monocytes # (Manual) 0.8 Toxic Granulation PRESENT Toxic Vacuolation PRESENT [place]oh[place] Bodies PRESENT Platelet Estimate SLIGHTLY DECREASED Large Platelets PRESENT Plt Morphology Comment NOTED RBC Morphology NOTED Macrocytosis 1+ (5-14) [place] Cells 2+ (3-5) Anion Gap 15 Estim Creat Clear Calc 25.3 Estimated GFR 28 POC Glucose Random Glucose 137 H Lactic Acid 1.8 Calcium 9.4 Total Bilirubin 1.2 H AST 23 ALT 12 Alkaline Phosphatase 101 Total Protein 6.7 Albumin 3.4 L Lipase 9 Urine Color Dark Yellow Urine Appearance Cloudy Urine pH 5.5 Ur Specific [place] 1.020 Urine Protein 300 (3+) H Urine Glucose (UA) Negative Urine Ketones Trace Urine Blood Large (3+) H Urine Nitrite Negative Ur Leukocyte Esterase Moderate (2+) H Urine RBC >20 H Urine WBC >50 H Ur Squamous Epith Cells 0-2 Urine Bacteria 4+ Hyaline Casts 3-5 Influenza Type A (PCR) NEGATIVE Influenza Type B (PCR) NEGATIVE RSV RNA Qual (PCR) NEGATIVE SARS-CoV-2 RNA (RT-PCR) NEGATIVE 10/25/24 10/25/24 04:29 05:44 MCV 97.6 MCH 34.5 H MCHC 35.3 H RDW 15.3 Plt Count TNP MPV 11.4 Immature Gran % (Auto) Neut % (Auto) Lymph % (Auto) [place] % (Auto) Eos % (Auto) Baso % (Auto) Lymph # (Auto) [place] # (Auto) Eos # (Auto) Baso # (Auto) Abs Immat Gran (auto) Absolute Neuts (auto) Absolute Nucleated RBC 0.000 Nucleated RBC % (auto) 0.0 Neutrophils % (Manual) Band Neutrophils % Lymphocytes % (Manual) Monocytes % (Manual) Abs Neuts (Manual) Lymphocytes # (Manual) Monocytes # (Manual) Toxic Granulation Toxic Vacuolation [place]oh[place] Bodies Platelet Estimate Large Platelets Plt Morphology Comment RBC Morphology Macrocytosis Ga Cells Anion Gap 12 Estim Creat Clear Calc 32.5 Estimated GFR 37 POC Glucose 103 Random Glucose 106 Lactic Acid Calcium 8.3 L D Total Bilirubin AST ALT Alkaline Phosphatase Total Protein Albumin Lipase Urine Color Urine Appearance Urine pH Ur Specific [place] Urine Protein Urine Glucose (UA) Urine Ketones Urine Blood Urine Nitrite Ur Leukocyte Esterase Urine RBC Urine WBC Ur Squamous Epith Cells Urine Bacteria Hyaline Casts Influenza Type A (PCR) Influenza Type B (PCR) RSV RNA Qual (PCR) SARS-CoV-2 RNA (RT-PCR) Microbiology Microbiology Results: Microbiology 10/24/24 15:09 Blood Culture - Preliminary Blood - Venous Prelim: GNR Gram Stain only 10/24/24 15:05 Blood Culture - Preliminary Blood - Venous Prelim: GNR Gram Stain only Assessment and Plan (1) Afib: Status: Acute Plan 69F PMH crohns, nephrolithiasis, presented with weakness Sepsis due to acute pyelonephritis likely due to passed left ureteral stone complicated by GNR bacteremia IV ceftriaxone, follow up cultures, Urology eval new onset afib with rvr metoprolol, eliquis, echo, cardio Acute kidney injury Due to above Received 30 cc/kilos, follow up BMP Crohn's Stable DVT prophylaxis with eliquis Full Code reason for continued hospitalization: sepsis Quality Stroke Does the patient have a stroke diagnosis?: No VTE Prior VTE?: No VTE Risk Level:: Medical - moderate - high VTE Device Contraindication: Treatment Not Indicated VTE Drug Contraindication: N/A - Med Ordered
--- NOTE | 2024-10-25 08:30 | PM.UROCN ---
History of Present Illness Consult details Consult date: 10/25/24 Narrative: CC: Left pyelonephritis with elevated creatinine and stone 69-year-old female Present to emergency room having been unwell for 5 days. Reported fever and chills with left flank pain. Known history of nephrolithiasis Found to have tachycardia, positive UA with acute kidney injury Imaging - CT There is a 6 mm calculus within the left renal pelvis. Stranding around kidney. Has had some improvement with IV fluids however creatinine twice her baseline Recommend cystoscopy, left retrograde, left stent placement Review of Systems Constitutional: Constitutional: Reports as per HPI and Reports no additional constitutional complaints Cardiovascular: Cardiovascular: Reports as per HPI and Reports no additional cardiovascular complaints Respiratory: Respiratory: Reports as per HPI and Reports no additional respiratory complaints Gastrointestinal: Gastrointestinal: Reports as per HPI and Reports no additional gastrointestinal complaints Genitourinary: Genitourinary: Reports as per HPI Musculoskeletal: Musculoskeletal: Reports no additional musculoskeletal complaints and Reports as per HPI Neurologic: Reports system reviewed and no additional complaints, except as documented and Reports as per HPI PMF Past Medical History Medical History (Updated 10/25/24 @ 08:17 by Bruce Sandhu MD) Afib Cellulitis and abscess of other specified site Osteoporosis Nicotine dependence, cigarettes, uncomplicated Breast cancer screening by mammogram Lip abscess Palpitations Flank pain Basal cell carcinoma Peptic ulcer disease Renal calculi Vitamin D deficiency Impaired glucose tolerance Anxiety and depression Anemia Asthma GERD (gastroesophageal reflux disease) Crohn's disease Surgical History Surgical History History of tooth extraction History of surgical removal of ganglion cyst Hx of lithotripsy Hx of dilation and curettage Hx of cystoscopy History of hysteroscopy History of colonoscopy History of cholecystectomy Hx of appendectomy H/O tubal ligation History of lumpectomy of left breast S/P small bowel resection Social History Social History Housing: House Alcohol intake: current Alcohol intake frequency: does not drink Patient Tobacco Use Status: Current everyday Tobacco user Tobacco use type: Cigarette Cigarette Packs Per Day: 1 Cigarettes Per Day: 15 Years Smoked: 50 Smoked in Last 30 Days: No e-Cigarette/Vaping Use: Never Used Second Hand Smoke Exposure: Yes Use of substances other than those prescribed or required for medical reasons: No Advance Directives: Yes Advance Directives Information Provided: Yes Advance Directives on File: No Do you have a plan to hurt others: No Plan service: No Current occupational status: 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 Cognitive needs: No Hearing needs: No Vision needs: Yes Meds Allergies Allergy/AdvReac Type Severity Reaction Status Date / Time [place] Allergy Intermediate oral Verified 10/24/24 12:16 swelling Doxycycline Hyclate Allergy Intermediate diarrhea, Verified 10/24/24 12:16 severe diarrhea tetracycline [TETRACYCLINE] Allergy Intermediate Itching Verified 10/24/24 12:16 Active Medications: Current Medications Acetaminophen (Acetaminophen 325 Mg Tablet) 650 mg PO Q6H PRN PRN Reason: Pain, Mild 1-3,fever,headache Last Admin: 10/25/24 01:23 Dose: 650 mg Apixaban (Apixaban 5 Mg Tablet) 5 mg PO BID SANDRA Calcium Carbonate (Calcium Carbonate 750 Mg Tab.Chew) 750 mg PO Q4H PRN PRN Reason: Heartburn Ceftriaxone Sodium (Ceftriaxone Sodium 1 Gm Vial) 1 gm IVPUSH Q24H SANDRA Hydromorphone HCl (Hydromorphone Hcl 0.5 Mg/0.5 Ml Syringe) 0.5 mg IVPUSH Q3H PRN; Protocol PRN Reason: Pain, Moderate(Pain Scale 4-6) Last Admin: 10/25/24 07:46 Dose: 0.5 mg Magnesium Hydroxide (Milk Of Magnesia 30 Ml Oral.Susp) 30 ml PO DAILY PRN PRN Reason: Constipation Melatonin (Melatonin 3 Mg Tablet) 6 mg PO BEDTIME PRN PRN Reason: Insomnia Metoprolol Tartrate (Metoprolol Tartrate 25 Mg Tablet) 25 mg PO BID [facility]; Protocol Last Admin: 10/24/24 22:18 Dose: 25 mg Sodium Chloride (0.9 % Sodium Chloride Flush 3 Ml Syringe) 3 ml IVFLUSH QSHIFT [facility] Last Admin: 10/25/24 07:59 Dose: 3 ml Home Medications ?Medication ?Instructions ?Recorded ?Confirmed ?Last Taken ?Type azathioprine 50 mg tablet 100 mg PO DAILY 04/24/20 10/06/24 04/01/22 History omeprazole 20 mg capsule,delayed 20 mg PO DAILY 04/24/20 10/06/24 10/28/23 History release betamethasone dipropionate 0.05 % 1 appl topical DAILY PRN Dry Skin 06/07/20 10/06/24 04/01/22 History topical cream dicyclomine 10 mg capsule 10 mg PO DAILY 04/30/21 10/06/24 04/01/22 History cholestyramine (with sugar) 4 gram ea PO 12/24/23 10/06/24 Unknown History oral powder Physical Exam Vital Signs: Vital Signs: Last Vital Signs Temp 98.0 F 10/25/24 05:46 Pulse 117 H 10/25/24 08:03 Resp 19 10/25/24 08:03 BP 122/63 10/25/24 08:03 Pulse Ox 96 10/25/24 08:03 O2 Del Method Room Air 10/25/24 08:03 O2 Flow Rate 2 10/25/24 07:41 BMI result Body Mass Index 21.5 Const: General: cooperative, healthy appearing, comfortable and no acute distress Orientation/consciousness: patient oriented x3 HEENT: Face and sinus: Yes normal facial exam Mouth: moist mucous membranes Neck: Neck: Yes normal visual inspection, Yes full ROM and Yes trachea midline Chest: Chest palpation & inspection: normal inspection of the chest Resp: Effort & Inspection: normal respiratory effort, able to speak in complete sentences and no respiratory distress GI: Inspection: Yes normal to inspection Back/Spine/Pelvis: Cervical Spine: normal cervical lordosis Thoracic/Lumbar Spine: thoracic and lumbar spine normal to inspection Skin: General skin exam: no rashes or lesions noted Neuro: General: patient oriented x3, tone normal and moves all extremities Extrem: General: Yes normal to inspection and Yes capillary refill normal Results Labs 10/25/24 05:44 10/25/24 05:44 Labs: Abnormal lab results 10/24/24 10/24/24 10/24/24 Range/Units 12:43 14:43 14:51 RBC 3.68 L (4.20-5.50) X10*6/uL Hgb (12.0-16.0) g/dl Hct 35.7 L (37.0-47.0) % MCH 34.0 H (27.0-33.0) pg MCHC (31.0-35.0) g/dl Plt Count 139 L D (160-400) X10*3/uL Neutrophils % (Manual) 78 H (45-73) % Band Neutrophils % 9 H (3-5) % Lymphocytes % (Manual) 5 L (20-40) % Abs Neuts (Manual) 9.0 H (2.0-8.3) X10*3/uL Lymphocytes # (Manual) 0.5 L (1.2-4.9) X10*3/uL Sodium 134 L (135-145) mmol/L BUN 49 H (9-16) mg/dL Creatinine 1.78 H (0.5-1.4) mg/dL Random Glucose 137 H (60-115) mg/dL Calcium (8.4-10.2) mg/dL Total Bilirubin 1.2 H (0.0-1.0) mg/dL Troponin I High Sens 34.7 H (<3.5-17.0) ng/L Albumin 3.4 L (3.5-5.0) g/dL Urine Protein 300 (3+) H (Neg-Trace) mg/dL Urine Blood Large (3+) H (Negative) Ur Leukocyte Esterase Moderate (2+) H (Negative) Urine RBC >20 H (0-2) /HPF Urine WBC >50 H (0-5) /HPF 05/27/25 Range/Units 05:44 RBC 2.96 L (4.20-5.50) X10*6/uL Hgb 10.2 L (12.0-16.0) g/dl Hct 28.9 L (37.0-47.0) % MCH 34.5 H (27.0-33.0) pg MCHC 35.3 H (31.0-35.0) g/dl Plt Count (160-400) X10*3/uL Neutrophils % (Manual) (45-73) % Band Neutrophils % (3-5) % Lymphocytes % (Manual) (20-40) % Abs Neuts (Manual) (2.0-8.3) X10*3/uL Lymphocytes # (Manual) (1.2-4.9) X10*3/uL Sodium (135-145) mmol/L BUN 40 H (9-16) mg/dL Creatinine (0.5-1.4) mg/dL Random Glucose (60-115) mg/dL Calcium 8.3 L D (8.4-10.2) mg/dL Total Bilirubin (0.0-1.0) mg/dL Troponin I High Sens (<3.5-17.0) ng/L Albumin (3.5-5.0) g/dL Urine Protein (Neg-Trace) mg/dL Urine Blood (Negative) Ur Leukocyte Esterase (Negative) Urine RBC (0-2) /HPF Urine WBC (0-5) /HPF Short CBC 10/24/24 10/25/24 Range/Units 12:43 05:44 WBC 10.4 8.6 (4.8-10.8) X10*3/uL Hgb 12.5 10.2 L (12.0-16.0) g/dl Hct 35.7 L 28.9 L (37.0-47.0) % Plt Count 139 L D TNP (160-400) X10*3/uL BMP 10/24/24 10/25/24 12:43 05:44 Sodium 134 L 138 Potassium 3.3 3.4 Chloride 98 107 Carbon Dioxide 24 22 BUN 49 H 40 H Creatinine 1.78 H 1.39 Calcium 9.4 8.3 L D Liver Function 10/24/24 Range/Units 12:43 Total Bilirubin 1.2 H (0.0-1.0) mg/dL AST 23 (5-31) U/L ALT 12 (0-31) U/L Alkaline Phosphatase 101 (39-117) U/L Albumin 3.4 L (3.5-5.0) g/dL Urine 10/24/24 Range/Units 14:51 Urine Color Dark Yellow Urine Appearance Cloudy Urine pH 5.5 (5.0-9.0) Ur Specific [place] 1.020 (1.005-1.025) Urine Protein 300 (3+) H (Neg-Trace) mg/dL Urine Glucose (UA) Negative (Negative) mg/dL All other labs normal. Assessment and Plan (1) Kidney stone on left side: Status: Acute (2) Acute kidney injury: Status: Acute Plan Risks, benefits and alternatives to therapy were discussed. These include but are not limited to infection, bleeding, damage to local organs and tissues, need for further interventions. Anesthetic risks regarding cardiac arrhythmia, blood clots, and potential mortality were discussed. The patient understands the typical recovery time and the outpatient nature of the procedure. After consideration of these risks the patient gives full informed consent and they wish to move ahead with the procedure. Cystoscopy, left retrograde, left stent placement Procedures Date of Service Date of Service: 10/25/24
--- NOTE | 2024-10-25 09:09 | PHA.MEDREC ---
Pharmacy Consult ? Medication Reconciliation Pharmacy has completed the medication reconciliation. Spoke with pt to confirm medications. She had a list that contains more of medications. Not listed on her list, but pt confirmed she is still on: Albuterol, Azathioprine, Betamethasone cream, Vitamin D3, Vitamin B-12, last injection was in Dr. De La Vega's office a week ago.
[2024-10-25] MEDS: Metoprolol Tartrate 25 MG TABLET PO (09:35)
[2024-10-25] MEDS: cefTRIAXone sodium 1 GM VIAL IVPUSH (09:35)
--- NOTE | 2024-10-25 09:43 | PM.CNCAR ---
History of Present Illness History of Present Illness Date of Service: 10/25/24 Requesting physician: Bruce Sandhu Consult reason: other (Cardiac arrhythmias) Chief complaint: Sepsis,Uti Narrative: I was consulted to see Vivian in cardiology consultation today for cardiac arrhythmias. She is a 69-year-old female who presented to the hospital with weakness and fever and was noted to have sepsis related to urinary tract infection with bacteremia. Patient is noted to have frequent initially PACs but started noticing to have frequent runs of cardiac arrhythmias. Patient says when she got upset here she does notice palpitation fast heart rate. Otherwise she has no prior history of cardiac issues. No prior significant high blood pressure diabetes, heart failure, stroke/TIA. She says currently she feels weak. She this morning was noted to have going to have short bursts of what appears to be atrial fibrillation. Her blood pressure is currently stable. She has no other complaints including no shortness of breath. No recent palpitations, lightheadedness, syncope. Review of Systems Constitutional: Constitutional: Reports chills, Reports fatigue, Reports fever(s) and Reports weakness Eyes: Eyes: Reports no additional eye complaints Cardiovascular: Cardiovascular: Denies chest pain, Denies leg edema, Denies lightheadedness, Denies Loss of Consciousness, Reports palpitations and Denies dyspnea Respiratory: Respiratory: Reports no additional respiratory complaints and Denies dyspnea Gastrointestinal: Gastrointestinal: Reports no additional gastrointestinal complaints Musculoskeletal: Musculoskeletal: Reports no additional musculoskeletal complaints Integumentary/Breasts: Skin/Breast: Reports system reviewed and no additional complaints, except as docu Neurologic: Reports weakness Psychiatric: Psychiatric: Reports no additional psychiatric complaints Endocrine: Endocrine: Reports no additional endocrine complaints, Reports fatigue and Reports palpitations [facility] Past Medical History Medical History Afib Cellulitis and abscess of other specified site Osteoporosis Nicotine dependence, cigarettes, uncomplicated Breast cancer screening by mammogram Lip abscess Palpitations Flank pain Basal cell carcinoma Peptic ulcer disease Renal calculi Vitamin D deficiency Impaired glucose tolerance Anxiety and depression Anemia Asthma GERD (gastroesophageal reflux disease) Crohn's disease Surgical History Surgical History History of tooth extraction History of surgical removal of ganglion cyst Hx of lithotripsy Hx of dilation and curettage Hx of cystoscopy History of hysteroscopy History of colonoscopy History of cholecystectomy Hx of appendectomy H/O tubal ligation History of lumpectomy of left breast S/P small bowel resection Social History Social History Housing: House Alcohol intake: current Alcohol intake frequency: does not drink Patient Tobacco Use Status: Never used Tobacco Tobacco use type: Cigarette Cigarette Packs Per Day: 1 Cigarettes Per Day: 15 Years Smoked: 50 Smoked in Last 30 Days: No e-Cigarette/Vaping Use: Never Used Second Hand Smoke Exposure: Yes Use of substances other than those prescribed or required for medical reasons: No Advance Directives: Yes Advance Directives Information Provided: Yes Advance Directives on File: No Do you have a plan to hurt others: No Plan Nutrition Risks: No Nutritional Risk service: No Current occupational status: 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 Cognitive needs: No Hearing needs: No Vision needs: Yes Meds Allergies Allergy/AdvReac Type Severity Reaction Status Date / Time Darvon Allergy Intermediate oral Verified 10/24/24 12:16 swelling Doxycycline Hyclate Allergy Intermediate diarrhea, Verified 10/24/24 12:16 severe diarrhea tetracycline [TETRACYCLINE] Allergy Intermediate Itching Verified 10/24/24 12:16 Active Medications: Current Medications Acetaminophen (Acetaminophen 325 Mg Tablet) 650 mg PO Q6H PRN PRN Reason: Pain, Mild 1-3,fever,headache Last Admin: 10/25/24 01:23 Dose: 650 mg Apixaban (Apixaban 5 Mg Tablet) 5 mg PO BID SANDRA Calcium Carbonate (Calcium Carbonate 750 Mg Tab.Chew) 750 mg PO Q4H PRN PRN Reason: Heartburn Ceftriaxone Sodium (Ceftriaxone Sodium 1 Gm Vial) 1 gm IVPUSH Q24H [facility] Last Admin: 10/25/24 09:35 Dose: 1 gm Hydromorphone HCl (Hydromorphone Hcl 0.5 Mg/0.5 Ml Syringe) 0.5 mg IVPUSH Q3H PRN; Protocol PRN Reason: Pain, Moderate(Pain Scale 4-6) Last Admin: 10/25/24 07:46 Dose: 0.5 mg Magnesium Hydroxide (Milk Of Magnesia 30 Ml Oral.Susp) 30 ml PO DAILY PRN PRN Reason: Constipation Melatonin (Melatonin 3 Mg Tablet) 6 mg PO BEDTIME PRN PRN Reason: Insomnia Metoprolol Tartrate (Metoprolol Tartrate 25 Mg Tablet) 25 mg PO BID [facility]; Protocol Last Admin: 10/25/24 09:35 Dose: 25 mg Sodium Chloride (0.9 % Sodium Chloride Flush 3 Ml Syringe) 3 ml IVFLUSH QSHIFT [facility] Last Admin: 10/25/24 07:59 Dose: 3 ml Home Medications ?Medication ?Instructions ?Recorded ?Confirmed ?Last Taken ?Type azathioprine 50 mg tablet 100 mg PO DAILY 04/24/20 10/25/24 04/01/22 History omeprazole 20 mg capsule,delayed 20 mg PO DAILY@0630 04/24/20 10/25/24 7 Days Ago History release ~10/18/24 betamethasone dipropionate 0.05 % 1 appl topical DAILY PRN Dry Skin 06/07/20 10/25/24 04/01/22 History topical cream dicyclomine 10 mg capsule 20 mg PO QID PRN abdominal 04/30/21 10/25/24 04/01/22 History cramping or discomfort cholestyramine (with sugar) 4 gram 1 ea PO BID hypercholesterolemia 12/24/23 10/25/24 7 Days Ago History oral powder ~10/18/24 albuterol sulfate 90 mcg/actuation 1 inh inhalation QID PRN Shortness 10/25/24 10/25/24 Unknown History aerosol inhaler Of Breath Physical Exam Vital Signs: Vital Signs: Last Vital Signs Temp 98.1 F 10/25/24 09:33 Pulse 129 H 10/25/24 09:35 Resp 20 10/25/24 09:33 BP 114/52 L 10/25/24 09:35 Pulse Ox 96 10/25/24 09:33 O2 Del Method Room Air 10/25/24 09:33 O2 Flow Rate 2 10/25/24 07:41 BMI result Body Mass Index 21.5 Const: General: cooperative, comfortable, no acute distress, alert and awake Nutritional Appearance: thin Orientation/consciousness: patient oriented x3 Limitations: no limitations HEENT: Head: Yes normocephalic and Yes atraumatic Neck: Neck: Yes trachea midline, Yes supple and Yes no JVD Resp: Effort & Inspection: normal respiratory effort Auscultation: clear to auscultation bilaterally and diminished lung sounds Cardio: Jugular venous distension: no JVD Rate: regular rate Rhythm: abnormal rhythm with ectopic beats Heart sounds: S1 normal heart sound present, S2 normal heart sound present, no click, no gallops, no murmurs and no rubs GI: Auscultation: normal bowel sounds Skin: General skin exam: no rashes or lesions noted Neuro: General: patient oriented x3 and no focal motor deficits Extrem: General: Yes no clubbing, cyanosis or edema Psych: Appearance: grossly normal Affect: Anxious affect present Objective Labs and Meds 10/25/24 05:44 10/25/24 05:44 Lab results: Laboratory Results - last 24 hr 10/24/24 10/24/24 10/24/24 12:43 14:43 14:51 WBC 10.4 RBC 3.68 L Hgb 12.5 Hct 35.7 L MCV 97.0 D MCH 34.0 H MCHC 35.0 RDW 14.6 Plt Count 139 L D MPV 12.0 Immature Gran % (Auto) Cancelled Neut % (Auto) Cancelled Lymph % (Auto) Cancelled [place] % (Auto) Cancelled Eos % (Auto) Cancelled Baso % (Auto) Cancelled Lymph # (Auto) Cancelled [place] # (Auto) Cancelled Eos # (Auto) Cancelled Baso # (Auto) Cancelled Abs Immat Gran (auto) Cancelled Absolute Neuts (auto) Cancelled Absolute Nucleated RBC 0.000 Nucleated RBC % (auto) 0.0 Neutrophils % (Manual) 78 H Band Neutrophils % 9 H Lymphocytes % (Manual) 5 L Monocytes % (Manual) 8 Abs Neuts (Manual) 9.0 H Lymphocytes # (Manual) 0.5 L Monocytes # (Manual) 0.8 Toxic Granulation PRESENT Toxic Vacuolation PRESENT Dohle Bodies PRESENT Platelet Estimate SLIGHTLY DECREASED Large Platelets PRESENT Plt Morphology Comment NOTED RBC Morphology NOTED Macrocytosis 1+ (5-14) [place] Cells 2+ (3-5) Sodium 134 L Potassium 3.3 Chloride 98 Carbon Dioxide 24 Anion Gap 15 BUN 49 H Creatinine 1.78 H Estim Creat Clear Calc 25.3 Estimated GFR 28 POC Glucose Random Glucose 137 H Lactic Acid Calcium 9.4 Total Bilirubin 1.2 H AST 23 ALT 12 Alkaline Phosphatase 101 Troponin I High Sens 34.7 H Total Protein 6.7 Albumin 3.4 L Lipase 9 Urine Color Dark Yellow Urine Appearance Cloudy Urine pH 5.5 Ur Specific Mineral 1.020 Urine Protein 300 (3+) H Urine Glucose (UA) Negative Urine Ketones Trace Urine Blood Large (3+) H Urine Nitrite Negative Ur Leukocyte Esterase Moderate (2+) H Urine RBC >20 H Urine WBC >50 H Ur Squamous Epith Cells 0-2 Urine Bacteria 4+ Hyaline Casts 3-5 Influenza Type A (PCR) NEGATIVE Influenza Type B (PCR) NEGATIVE RSV RNA Qual (PCR) NEGATIVE SARS-CoV-2 RNA (RT-PCR) NEGATIVE 10/24/24 10/25/24 10/25/24 15:05 04:29 05:44 WBC 8.6 RBC 2.96 L Hgb 10.2 L Hct 28.9 L MCV 97.6 MCH 34.5 H MCHC 35.3 H RDW 15.3 Plt Count TNP MPV 11.4 Immature Gran % (Auto) Neut % (Auto) Lymph % (Auto) [place] % (Auto) Eos % (Auto) Baso % (Auto) Lymph # (Auto) [place] # (Auto) Eos # (Auto) Baso # (Auto) Abs Immat Gran (auto) Absolute Neuts (auto) Absolute Nucleated RBC 0.000 Nucleated RBC % (auto) 0.0 Neutrophils % (Manual) Band Neutrophils % Lymphocytes % (Manual) Monocytes % (Manual) Abs Neuts (Manual) Lymphocytes # (Manual) Monocytes # (Manual) Toxic Granulation Toxic Vacuolation Dohle Bodies Platelet Estimate Large Platelets Plt Morphology Comment RBC Morphology Macrocytosis [place] Cells Sodium 138 Potassium 3.4 Chloride 107 Carbon Dioxide 22 Anion Gap 12 BUN 40 H Creatinine 1.39 Estim Creat Clear Calc 32.5 Estimated GFR 37 POC Glucose 103 Random Glucose 106 Lactic Acid 1.8 Calcium 8.3 L D Total Bilirubin AST ALT Alkaline Phosphatase Troponin I High Sens Total Protein Albumin Lipase Urine Color Urine Appearance Urine pH Ur Specific Mineral Urine Protein Urine Glucose (UA) Urine Ketones Urine Blood Urine Nitrite Ur Leukocyte Esterase Urine RBC Urine WBC Ur Squamous Epith Cells Urine Bacteria Hyaline Casts Influenza Type A (PCR) Influenza Type B (PCR) RSV RNA Qual (PCR) SARS-CoV-2 RNA (RT-PCR) EKG of poor quality but shows irregular QRS complex suggestive of sinus tachycardia with atrial fibrillation burst Assessment and Plan (1) Cardiac arrhythmia: Status: Acute Cardiac arrhythmias with short bursts of atrial fibrillation and frequent PACs most likely induced by her underlying acute medical issue with sepsis. I would agree with Eliquis if there are no surgical interventions planned at this point time. Also start her on metoprolol 12.5 mg q.6 hours to reduce cardiac excitability. Treat her underlying medical condition aggressively. Will also need an echocardiogram. Check TSH if not already done so. Full disclosure cardiac telemetry. If her arrhythmias remains uncontrolled please consult us at that point time. At this point time will sign of the case. Thank you for allowing me to partake in his care. Will set up for outpatient follow-up Procedures Date of Service Date of Service: 10/25/24
[2024-10-25] MEDS: Apixaban 5 MG TABLET PO ×2 (09:49→22:35)
[2024-10-25] MEDS: dilTIAZem HCL 50 MG/10 ML VIAL 10 MG IVPUSH (10:00)
--- NOTE | 2024-10-25 10:05 | PC.NURSE ---
Pt medicated per JUL for rate control- pt HR decreased to 100s-110s. HR has now increased back to 130s-150s, denies cp/sob. 10mg IVP Cardizem given per MD Sandhu along with 25mg PO dose of Metoprolol. Oral temp 101.2- PRN Tylenol given and MD Sandhu also aware. Pt resting in bed quietly, respirations even and unlabored, remains afib on general house worker. BP cycling q15 to monitor, general house worker and continuous O2 probe also on pt for monitoring. Call voss within reach, all needs met at this time.
[2024-10-25] MEDS: traMADoL HCL 50 MG TABLET PO (10:09)
[2024-10-25] MEDS: azaTHIOprine 50 MG TABLET 100 MG PO (11:28)
[2024-10-25] MEDS: busPIRone HCl 10 MG TABLET PO (11:30)
--- NOTE | 2024-10-25 13:28 | MHC.CM.PN ---
IMM 10/25/24, Pt. lives with her , Tony, and he is her HCP, copy requested. PCP confirmed Dr. Duarte. Pt. does not have any home care services or use DME. Her will provide transport home at DC. DCP: home, self care, CM to follow for DC needs.
--- NOTE | 2024-10-25 15:10 | P.PNUR_ITS ---
Subjective Subjective Date of Service: 10/25/24 Patient reports: feels better and pain is less Interval history: Vivian is admitted due to UTI and pyelonephritis, CTAP Left nonobstructing renal stone, with mild pelviectasis, and renal changes c/w recently passed stone. Pt states, left lower quadrant and bladder pain improved. Blood and urine c/s - GNR's, final pending. 10/23/24 urine c/s - Klebsiella sensitive to Ceftriaxone. Clinically improving with IV Ceftriaxone. Will hold on Left ureteral stent. CTAP--10/24/24--6 mm calculus within the left renal pelvis. This does not appear to be obstructive. There is mild pelviectasis. The left kidney is mildly enlarged. There are 2 additional tiny nonobstructive calculi within the left kidney. There is no ureteral calculus. There are several tiny nonobstructive calculi within the right kidney. Physical Exam 2 Vital Signs: Vital Signs: Last Vital Signs Temp 98.5 F 10/25/24 12:00 Pulse 97 10/25/24 12:00 Resp 20 10/25/24 12:00 BP 102/60 10/25/24 12:00 Pulse Ox 95 10/25/24 12:00 O2 Del Method Room Air 10/25/24 12:00 O2 Flow Rate 2 10/25/24 07:41 BMI result Body Mass Index 23.5 Const: General: cooperative, healthy appearing and no acute distress O rientation/consciousness: patient oriented x3 HEENT: Head: Yes normal to inspection, Yes normocephalic and Yes atraumatic Eyes: Conjunctivae: conjunctivae normal Neck: Neck: Yes normal visual inspection and Yes trachea midline Chest: Chest palpation & inspection: normal inspection of the chest Resp: Other: nasal cannula Effort & Inspection: normal respiratory effort GI: Inspection: Yes normal to inspection Palpation (GI): Soft to palpation : General: Yes CVA tenderness (mild left) Back/Spine/Pelvis: Back: CVA tenderness (mild left) Neuro: General: patient oriented x3 Psych: Appearance: grossly normal Urology Results Labs 10/25/24 05:44 10/25/24 05:44 Labs: Laboratory Results - last 24 hr 10/24/24 10/24/24 10/25/24 14:43 15:05 04:29 WBC RBC Hgb Hct MCV MCH MCHC RDW Plt Count MPV Absolute Nucleated RBC Nucleated RBC % (auto) Sodium Potassium Chloride Carbon Dioxide Anion Gap BUN Creatinine Estim Creat Clear Calc Estimated GFR POC Glucose 103 Random Glucose Lactic Acid 1.8 Calcium Troponin I High Sens 34.7 H 10/25/24 05:44 WBC 8.6 RBC 2.96 L Hgb 10.2 L Hct 28.9 L MCV 97.6 MCH 34.5 H MCHC 35.3 H RDW 15.3 Plt Count TNP MPV 11.4 Absolute Nucleated RBC 0.000 Nucleated RBC % (auto) 0.0 Sodium 138 Potassium 3.4 Chloride 107 Carbon Dioxide 22 Anion Gap 12 BUN 40 H Creatinine 1.39 Estim Creat Clear Calc 32.5 Estimated GFR 37 POC Glucose Random Glucose 106 Lactic Acid Calcium 8.3 L D Troponin I High Sens Date of Service: 10/24/24 CLINICAL HISTORY: Left flank pain UTI hx of stones CT abdomen and pelvis without contrast Comparison: CT/REG/SR - CT ABDOMEN PELVIS W IV CON - 11/05/22 00:06 EDT Findings: No consolidation or effusion. There is a 6 mm calculus within the left renal pelvis. This does not appear to be obstructive. There is mild pelviectasis. The left kidney is mildly enlarged. There are 2 additional tiny nonobstructive calculi within the left kidney. There is no ureteral calculus. There are several tiny nonobstructive calculi within the right kidney. Remaining abdominal organs are unremarkable. Prior cholecystectomy. No bowel obstruction, pneumoperitoneum, or pneumatosis. Unremarkable pelvic contents. Prior appendectomy. There is endplate irregularity at L1-L2 with slight interval progression since the prior study, most compatible with degenerative change. No acute fracture. IMPRESSION: 1. The left kidney is mildly enlarged and there is mild pelviectasis of the left kidney. Consider recently passed stone or pyelonephritis. 2. There are nonobstructive calculi within the bilateral kidneys. Progress Note: A&P Assessment and plan (1) Pyelonephritis of left kidney: Status: Acute (2) UTI (urinary tract infection): Status: Acute (3) Bilateral kidney stones: Status: Acute Plan Blood and urine c/s - GNR's, final pending. 10/23/24 urine c/s - Klebsiella sensitive to Ceftriaxone. Clinically improving with IV Ceftriaxone. Will hold on Left ureteral stent for today. Pt may resume diet. Time Spent With Patient Time: Total time managing care of this patient today ____ minutes. Progress Note: Quality Stroke Does the patient have a stroke diagnosis?: No
[2024-10-25] MEDS: Metoprolol Tartrate 12.5 MG HALFTAB PO ×2 (16:48→22:35)
[2024-10-26] VITALS (15 sets, daily range): BP systolic 86–184; BP diastolic 47–80; PULSE 73–113; RESP 15–20; TEMP 36.3–39.3; O2SAT 92–100
--- NOTE | 2024-10-26 | ECG_ITS ---
Test Reason : Narrow complex tachycardia Blood Pressure : */* mmHG Vent. Rate : 220 BPM Atrial Rate : * BPM P-R Int : * ms QRS Dur : 74 ms QT Int : 206 ms P-R-T Axes : * 50 190 degrees QTcB Int : 394 ms Supraventricular tachycardia Marked ST abnormality, possible inferior subendocardial injury Marked ST abnormality, possible anterior subendocardial injury Abnormal ECG When compared with ECG of 25-Oct-2024 07:44, Supraventricular tachycardia has replaced Sinus tachycardia Vent. rate has increased by [address] now depressed in Inferior leads ST now depressed in Lateral leads T wave inversion now evident in Anterior leads Referred By: Anthony Rodriguez Electronically Signed By: CHAPITO FRANCE MD
[2024-10-26] MEDS: 0.9 % Sodium Chloride Flush 3 ML SYRINGE IVFLUSH ×3 (00:19→16:29)
[2024-10-26] MEDS: Omeprazole 20 MG CAPSULE.DR PO (05:23)
--- NOTE | 2024-10-26 07:00 | CA_ITS ---
Transthoracic Echocardiogram Patient (Last, First, Middle): Vivian Mccollum A Gender: Female Date of : 1955 Age: 69 Procedure Date: 10/26/2024 Procedure Type: Transthoracic Echocardiogram [place] [facility] [place] Height: 162.56 cm Weight: 58.06 kg BSA: 1.62 m2 Heart Rate: bpm BP: 149 / 64 mmHg Advisory Software Engineer: Referring MD: Bruce Sandhu MD Top Trimmer: Coleman Arriola MD Symptoms: ?afib Study Quality: Adequate ECG Rhythm: Sinus with extra beats Conclusions: - 1. Normal LV ejection fraction of 60 65% with impaired relaxation filling pattern 2. Mild mitral and tricuspid regurgitation 3. Normal RV systolic pressure 4. No pericardial effusion Findings Left Ventricle Normal left ventricular size, thickness, and systolic function. The visually estimated ejection fraction is between 60-65%. Spectral Doppler is indicative of an impaired relaxation filling pattern. E/E prime ratio is between 8 and 15 consistent with indeterminate filling pressures. Right Ventricle Normal right ventricular cavity size and systolic function. Atria The left atrium is likely dilated. There is no evidence of interatrial shunt. The right atrium is normal in size. Aortic Valve Normal aortic valve structure and function. There is no aortic valve stenosis. There is no aortic valve regurgitation. Mitral Valve There is mild anterior and posterior mitral leaflet thickening. There is mild mitral valve regurgitation. There is no mitral valve stenosis. Pulmonic Valve The pulmonic valve is likely normal. Tricuspid Valve Normal tricuspid valve structure. There is mild tricuspid valve regurgitation. The right ventricular systolic pressure is normal. The right ventricular systolic pressure is 25 mmHg. Normal right atrial pressure. There is no evidence of pulmonary hypertension. Great Vessels All visible segments of the aorta are normal in size. The pulmonary artery was not well visualized. Venous The inferior vena cava is normal in size and collapses greater than 50% with inspiration. Pericardium/Pleural There is no evidence of pericardial effusion. Prior Study Comparison No prior study available for comparison. Measurements 2D Linear Measurements IVSd: 0.90 0.6-0.9/0.6-1.0 cm LVIDd: 4.22 3.9-5.3/4.2-5.9 cm LVIDd Index: 2.60 2.4-3.2/2.2-3.1 cm/m2 LVIDs: 3.14 2.0-3.6 cm LVPWd: 0.95 0.7-1.1 cm LA Diam: 3.30 2.7-3.8/3.0-4.0 cm LAIDs Index: 2.04 1.5-2.3 cm/m2 LV Mass: 154.67 67-162/88-224 g LV Mass Index: 95.47 43-95/49-115 g/m2 LVOT Diam: 2.10 3.0+(-)1.3 cm Mitral Valve MV Pk E: 0.78 MV PK A: 1.16 MV Decel Time: 239.00 E/A: 0.70 E'Lateral: 7.18 E'Medial: 5.55 E/E' Med: 14.10 E/E' Lat: 10.90 PHT: 70.00 MVA PHT: 3.14 Decel Sequoyah: 3.26 Aortic Valve AoV Pk Basim: 1.32 AoV Mn Basim: 0.78 AoV VTI: 0.30 AoV Pk Grad: 7.00 Aov Mn Grad: 3.00 JONO Cont.VTI: 2.07 LVOT LVOT Pk Basim: 0.82 LVOT Mn Basim: 0.53 LVOT VTI: 0.18 LVOT Pk Grad: 3.00 LVOT Mn Grad: 1.00 LVOT Diam: 2.10 LVOT Area: 3.46 Diastolic Function MV Pk E: 0.78 MV Pk A: 1.16 E/A: 0.70 E'Medial: 5.55 E/E' Med: 14.10 E' Laterial: 7.18 E/E' Lat: 10.90 Right Ventricle TAPSE (mm): 25.60 TVS' Basim: 10.30 Tricuspid Valve TR Pk Basim: 2.35 TR Pk Grad: 22.00 RA Press: 3.00 RVSP: 25.00 Great Vessels Aorta Sinus of Valsalva: 3.00 2.0-3.5 cm Ao Asc: 3.40 2.1-3.4 cm Pulmonary Valve PV Pk Basim: 0.74 Peak PV Grad: 2.00 Updated in Other Vendor System with Status of Final Coleman Arriola MD electronically signed on 10/26/2024 3:05:59 PM with status of Final
[2024-10-26 07:22] LABS: Hematocrit 30.1 % (37.0-47.0); Hemoglobin 10.8 g/dl (12.0-16.0); Mean Corpuscular HGB Conc 35.9 g/dl (31.0-35.0); Mean Corpuscular Hemoglobin 34.5 pg (27.0-33.0); Mean Corpuscular Volume 96.2 fL (80.0-98.0); Mean Platelet Volume 11.6 fL (9.4-12.3); Platelet Count 155 X10*3/uL (160-400); Red Blood Count 3.13 X10*6/uL (4.20-5.50); Red Cell Distribution Width 15.2 % (11.0-16.0); White Blood Count 14.1 X10*3/uL (4.8-10.8)
[2024-10-26 07:28] LABS: Anion Gap 12 (12-20); Blood Urea Nitrogen 24 mg/dL (9-16); Calcium 8.3 mg/dL (8.4-10.2); Carbon Dioxide 22 mmol/L (22-29); Chloride 104 mmol/L (96-108); Creatinine Clr Calc Pharmacy 41.4; Estimated Glomerular Filt Rate 50; Glucose Random 120 mg/dL (60-115); Magnesium 1.8 mg/dL (1.6-2.6); Sodium 135 mmol/L (135-145)
[2024-10-26] MEDS: cefTRIAXone sodium 1 GM VIAL IVPUSH ×2 (08:58→17:48)
[2024-10-26] MEDS: Pyridoxine HCl (Vitamin B6) 50 MG TABLET 100 MG PO (08:59)
[2024-10-26] MEDS: busPIRone HCl 10 MG TABLET PO (08:59)
[2024-10-26] MEDS: Cholecalciferol (Vitamin D3) 25 MCG TABLET 50 MCG PO (08:59)
[2024-10-26] MEDS: traMADoL HCL 50 MG TABLET PO (08:59)
[2024-10-26] MEDS: Acetaminophen 325 MG TABLET 650 MG PO ×2 (08:59→16:24)
[2024-10-26] MEDS: Metoprolol Tartrate 25 MG TABLET PO ×2 (08:59→16:38)
[2024-10-26] MEDS: Apixaban 5 MG TABLET PO ×2 (09:03→20:46)
[2024-10-26] MEDS: azaTHIOprine 50 MG TABLET 100 MG PO (09:04)
--- NOTE | 2024-10-26 10:59 | HO.PM.IMPN ---
Subjective Subjective Date of Service: 10/26/24 Interval History: she reports becoming very short of breath going to the bathroom intermittent palpiation Physical Exam Vital Signs: Vital Signs: Last Vital Signs Temp 100.7 F H 10/26/24 08:00 Pulse 87 10/26/24 08:00 Resp 18 10/26/24 08:00 BP 122/58 L 10/26/24 08:00 Pulse Ox 99 10/26/24 08:00 O2 Del Method Nasal Cannula 10/26/24 08:00 O2 Flow Rate 2 10/26/24 08:00 BMI result Body Mass Index 23.5 Const: Other: General: AO X 3, no acute distress Resp: CTA bilateral CVS: S1,S2, iregular iregular GI: +BS, NT, no distention Skin: No rash Neuro: motor grossly intact Psych: appropriate affect Objective Data Active Medications Acetaminophen (Acetaminophen 325 Mg Tablet) 650 mg PO Q6H PRN PRN Reason: Pain, Mild 1-3,fever,headache Last Admin: 10/26/24 08:59 Dose: 650 mg Documented By: MYKEL Albuterol Sulfate (Albuterol Sulfate 90 Mcg 8 Gm Inhaler) 1 puff INHALE QID PRN PRN Reason: Shortness Of Breath Apixaban (Apixaban 5 Mg Tablet) 5 mg PO BID [facility] Last Admin: 10/26/24 09:03 Dose: 5 mg Documented By: MYKEL Azathioprine (Azathioprine 50 Mg Tablet) 100 mg PO DAILY [facility] Last Admin: 10/26/24 09:04 Dose: 100 mg Documented By: MYKEL Buspirone HCl (Buspirone Hcl 10 Mg Tablet) 10 mg PO DAILY [facility] Last Admin: 10/26/24 08:59 Dose: 10 mg Documented By: MYKEL Calcium Carbonate (Calcium Carbonate 750 Mg Tab.Chew) 750 mg PO Q4H PRN PRN Reason: Heartburn Ceftriaxone Sodium (Ceftriaxone Sodium 1 Gm Vial) 1 gm IVPUSH Q24H [facility] Last Admin: 10/26/24 08:58 Dose: 1 gm Documented By: MYKEL Dronedarone (Dronedarone Hcl 400 Mg Tablet) 400 mg PO BID [facility] Hydromorphone HCl (Hydromorphone Hcl 0.5 Mg/0.5 Ml Syringe) 0.5 mg IVPUSH Q3H PRN; Protocol PRN Reason: Pain, Moderate(Pain Scale 4-6) Last Admin: 10/25/24 07:46 Dose: 0.5 mg Documented By: NAVYA Magnesium Hydroxide (Milk Of Magnesia 30 Ml Oral.Susp) 30 ml PO DAILY PRN PRN Reason: Constipation Melatonin (Melatonin 3 Mg Tablet) 6 mg PO BEDTIME PRN PRN Reason: Insomnia Metoprolol Tartrate (Metoprolol Tartrate 25 Mg Tablet) 25 mg PO QID [facility]; Protocol Last Admin: 10/26/24 08:59 Dose: 25 mg Documented By: MYKEL Omeprazole (Omeprazole 20 Mg Capsule.Dr) 20 mg PO DAILY@0630 [facility] Last Admin: 10/26/24 05:23 Dose: 20 mg Documented By: NIKO Pyridoxine HCl (Pyridoxine Hcl (Vitamin B6) 50 Mg Tablet) 100 mg PO DAILY [facility] Last Admin: 10/26/24 08:59 Dose: 100 mg Documented By: MYKEL Sodium Chloride (0.9 % Sodium Chloride Flush 3 Ml Syringe) 3 ml IVFLUSH QSHIFT [facility] Last Admin: 10/26/24 08:57 Dose: 3 ml Documented By: MYKEL Tramadol HCl (Tramadol Hcl 50 Mg Tablet) 50 mg PO DAILY [facility] Last Admin: 10/26/24 08:59 Dose: 50 mg Documented By: MYKEL Vitamin D (Cholecalciferol (Vitamin D3) 25 Mcg Tablet) 50 mcg PO DAILY [facility] Last Admin: 10/26/24 08:59 Dose: 50 mcg Documented By: MYKEL Labs 10/26/24 06:53 10/26/24 06:53 Labs: Laboratory Results - last 24 hr 10/26/24 06:53 MCV 96.2 MCH 34.5 H MCHC 35.9 H RDW 15.2 Plt Count 155 L MPV 11.6 Absolute Nucleated RBC 0.000 Nucleated RBC % (auto) 0.0 Anion Gap 12 Estim Creat Clear Calc 41.4 Estimated GFR 50 Random Glucose 120 H Calcium 8.3 L Magnesium 1.8 Microbiology Microbiology Results: Microbiology 10/24/24 15:09 Blood Culture - Preliminary Blood - Venous Gram negative nola 10/24/24 15:05 Blood Culture - Preliminary Blood - Venous Gram negative nola 10/24/24 15:09 Urine Culture - Final Urine clean catch - Clean Catch Midstream Klebsiella pneumoniae Assessment and Plan (1) Afib: Status: Acute Plan 69F PMH crohns, nephrolithiasis, presented with weakness Sepsis due to acute pyelonephritis likely due to passed left ureteral stone complicated by GNR bacteremia, urine culture Klebsiela sensitive with ceftriaxone, proably same as bacteremia continue IV ceftriaxone, follow up cultures sensitivity for blood. Seen by Uro 10/25, holding of stent for now new onset afib with rvr, presently rate controlled. continue metoprolol 25 bid, eliquis, Adding Multaq per card recommendation echo pending Acute kidney injury, Due to above, resolved with IVF Crohn's Stable DVT prophylaxis with eliquis Full Code reason for continued hospitalization: sepsis Quality Stroke Does the patient have a stroke diagnosis?: No VTE Prior VTE?: No VTE Risk Level:: Medical - moderate - high VTE Device Contraindication: Treatment Not Indicated VTE Drug Contraindication: N/A - Med Ordered
[2024-10-26] MEDS: Dronedarone HCl 400 MG TABLET PO ×2 (11:08→20:46)
--- NOTE | 2024-10-26 11:12 | PM.PNCARD ---
Subjective Subjective Date of Service: 10/26/24 Principal diagnosis: Atrial fibrillation, sepsis Interval history: Patient still having intermittent bursts of atrial arrhythmias suggestive of atrial fibrillation. Complains of weakness. Denies any significant palpitation but says that she feels her heart rate rapid. Blood pressure is stable. Continues to have fever. Review of Systems Constitutional: Reports fever(s), Reports lethargy, Reports malaise and Reports weakness Eyes: Reports no additional eye complaints Cardiovascular: Denies chest pain, Reports rapid heart rate, Denies lightheadedness, Denies Loss of Consciousness and Reports dyspnea on exertion Respiratory: Reports dyspnea on exertion Genitourinary: Denies no additional female genitourinary complaints Musculoskeletal: Denies no additional musculoskeletal complaints Denies system reviewed and no additional complaints, except as documented and Reports weakness Physical Exam Vital Signs: Last Vital Signs Temp 100.7 F H 10/26/24 08:00 Pulse 87 10/26/24 08:00 Resp 18 10/26/24 08:00 BP 122/58 L 10/26/24 08:00 Pulse Ox 99 10/26/24 08:00 O2 Del Method Nasal Cannula 10/26/24 08:00 O2 Flow Rate 2 10/26/24 08:00 BMI result Body Mass Index 23.5 Const General: cooperative, comfortable, no acute distress, alert and awake Nutritional Appearance: thin Orientation/consciousness: patient oriented x3 Limitations: no limitations HEENT Head: Yes normocephalic and Yes atraumatic Neck Neck: Yes trachea midline, Yes supple and Yes no JVD Resp Effort & Inspection: normal respiratory effort Auscultation: clear to auscultation bilaterally and diminished lung sounds Cardio Jugular venous distension: no JVD Rate: regular rate Rhythm: abnormal rhythm with ectopic beats Heart sounds: S1 normal heart sound present, S2 normal heart sound present, no click, no gallops, no murmurs and no rubs GI Auscultation: normal bowel sounds Skin General skin exam: no rashes or lesions noted Neuro General: patient oriented x3 and no focal motor deficits Extrem General: Yes no clubbing, cyanosis or edema Psych Appearance: grossly normal Affect: Anxious affect present Objective Labs and Meds 10/26/24 06:53 10/26/24 06:53 Lab results: Laboratory Results - last 24 hr 10/26/24 06:53 WBC 14.1 H RBC 3.13 L Hgb 10.8 L Hct 30.1 L MCV 96.2 MCH 34.5 H MCHC 35.9 H RDW 15.2 Plt Count 155 L MPV 11.6 Absolute Nucleated RBC 0.000 Nucleated RBC % (auto) 0.0 Sodium 135 Potassium 3.0 L Chloride 104 Carbon Dioxide 22 Anion Gap 12 BUN 24 H Creatinine 1.09 Estim Creat Clear Calc 41.4 Estimated GFR 50 Random Glucose 120 H Calcium 8.3 L Magnesium 1.8 Progress Note: A&P Assessment and plan (1) Cardiac arrhythmia: Status: Acute Assessment and Plan: Cardiac arrhythmias with short bursts of atrial fibrillation most likely due to underlying acute medical illness. Echocardiogram being performed at this point time. Will check the echocardiogram. Preliminary LV function appears normal. Will start her on Multaq 400 mg b.i.d. to suppress her cardiac arrhythmias. If no surgical interventions planned can continue with oral anticoagulation therapy with Eliquis. EKG should be done tomorrow a.m. on Multaq. Continue full disclosure cardiac telemetry. Continue aggressively manage her underlying medical/surgical illness. Will follow with you Time Spent With Patient Time: Total time managing care of this patient today ____ minutes. Progress Note: Quality Stroke Does the patient have a stroke diagnosis?: No Procedures Date of Service Date of Service: 10/26/24
--- NOTE | 2024-10-26 11:52 | MHC.CM.PN ---
Per rounds, pt. is not ready to DC, she is being treated for Sepsis, and will have continued care. DCP is home, self care or with services, CM to follow for DC needs.
--- NOTE | 2024-10-26 15:07 | HO.WOUND ---
Wound Consult: Initial 69yr old? admitted to [facility] on 10/24/24 18:20- See progress notes and H&P for detailed history.? Wound consult placed for Right Forearm.? Patient agreeable to assessment and photo documentation.? Patient reports the injury is due to a dog scratch over a week ago. The site is resurfacing - red pink healing tissue with scattered small scabs noted. No erythema no s/s of infection. Patient prefers to keep ELIS at this time - no concerns given stable scab present. No topical recommendations needed at this time.
[2024-10-26] MEDS: Adenosine 6 MG/2 ML VIAL IVPUSH (16:14)
--- NOTE | 2024-10-26 16:25 | PM.EVENT ---
Event Note Date of Service: 10/26/24 Event Note: A Rapid response was called around 4:15 PM for narrow complex tachycardia in 240s Patient BP was stable. she was alert and complianing of funny feeling in her chest Adenosine 6 mg given once with good response as HR improved to 120s. was sinus then became Afib w RvR Noticed to be febrile at 102 to give IV bolus, check LA and blood cultures Use Metoprolol as needed for HR control Time Spent With Patient Time: Total time managing care of this patient today ____ minutes.
[2024-10-26] MEDS: 0.9 % Sodium Chloride 1,000 ML 999 ML IV (16:31)
[2024-10-26] MEDS: Ketorolac Tromethamine 15 MG/ML VIAL IVPUSH (16:38)
[2024-10-26 17:06] LABS: Lactic Acid 2.9 mmol/L (0.5-2.0)
[2024-10-26] MEDS: Potassium Chloride/H20 10 MEQ/100 ML PIGGYBACK 100 MEQ IV ×2 (17:55→20:54)
--- NOTE | 2024-10-26 17:57 | P.PNUR_ITS ---
Subjective Subjective Date of Service: 10/26/24 Interval history: Asked to see patient by treating physician Had been doing well this morning Now has progressive drop in blood pressure, SVT Appears to becoming septic Question as to a value of stent placement Agree with treating physician assessment Recommend cystoscopy with left stent placement Did eat a little for lunch Physical Exam 2 Vital Signs: Vital Signs: Last Vital Signs Temp 100.2 F 10/26/24 17:53 Pulse 97 10/26/24 17:53 Resp 18 10/26/24 17:53 BP 109/53 L 10/26/24 17:53 Pulse Ox 100 10/26/24 17:48 O2 Del Method Nasal Cannula 10/26/24 17:48 O2 Flow Rate 2 10/26/24 17:11 Oxygen Flow Rate 2 10/26/24 17:48 BMI result Body Mass Index 23.5 Const: General: cooperative, healthy appearing, comfortable and no acute distress Orientation/consciousness: patient oriented x3 HEENT: Face and sinus: Yes normal facial exam Mouth: moist mucous membranes Neck: Neck: Yes normal visual inspection, Yes full ROM and Yes trachea midline Chest: Chest palpation & inspection: normal inspection of the chest Resp: Effort & Inspection: normal respiratory effort, able to speak in complete sentences and no respiratory distress GI: Inspection: Yes normal to inspection Back/Spine/Pelvis: Cervical Spine: normal cervical lordosis Thoracic/Lumbar Spine: thoracic and lumbar spine normal to inspection Skin: General skin exam: no rashes or lesions noted Neuro: General: patient oriented x3, tone normal and moves all extremities Extrem: General: Yes normal to inspection and Yes capillary refill normal Urology Results Labs 10/26/24 06:53 10/26/24 06:53 Labs: Laboratory Results - last 24 hr 10/26/24 10/26/24 06:53 16:34 WBC 14.1 H RBC 3.13 L Hgb 10.8 L Hct 30.1 L MCV 96.2 MCH 34.5 H MCHC 35.9 H RDW 15.2 Plt Count 155 L MPV 11.6 Absolute Nucleated RBC 0.000 Nucleated RBC % (auto) 0.0 Hold Purple Top SEE NOTE Sodium 135 Potassium 3.0 L Chloride 104 Carbon Dioxide 22 Anion Gap 12 BUN 24 H Creatinine 1.09 Estim Creat Clear Calc 41.4 Estimated GFR 50 Random Glucose 120 H Lactic Acid 2.9 H* Calcium 8.3 L Magnesium 1.8 Hold Yellow Top See Note Progress Note: A&P Assessment and plan (1) Sepsis: Status: Acute (2) Kidney stone on left side: Status: Acute Plan Risks, benefits and alternatives to therapy were discussed. These include but are not limited to infection, bleeding, damage to local organs and tissues, need for further interventions. Anesthetic risks regarding cardiac arrhythmia, blood clots, and potential mortality were discussed. The patient understands the typical recovery time and the outpatient nature of the procedure. After consideration of these risks the patient gives full informed consent and they wish to move ahead with the procedure. Cystoscopy, left retrograde, left stent placement Time Spent With Patient Time: Total time managing care of this patient today ____ minutes. Progress Note: Quality Stroke Does the patient have a stroke diagnosis?: No
[2024-10-26] MEDS: Lactated Ringers 1,000 ML 80 ML IVCONT (18:10)
--- NOTE | 2024-10-26 18:11 | P.EN_ITS ---
Event Note Date of Service: 10/26/24 Event Note: Patient had URGENT CARE NURSE PRACTITIONER for SVT, which resolved with adenosine. Now febrile, with rising WBC count and elevated lactic acid?likely clinical deterioration due to an infected kidney stone. Urology has been contacted for urgent reassessment and possible intervention Plan: * Keep NPO * Increase Ceftriaxone to 2 g IV daily for bacteremia * IV fluids with Lactated Ringers * Replete potassium as needed * Repeat blood cultures Time Spent With Patient Time: Total time managing care of this patient today ____ minutes.
--- NOTE | 2024-10-26 18:11 | PM.EVENT ---
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 Now febrile, with rising WBC count and elevated lactic acid?likely clinical deterioration due to an infected kidney stone. Urology has been contacted for urgent reassessment and possible intervention Plan: Keep NPO Increase Ceftriaxone to 2 g IV daily for bacteremia IV fluids with Lactated Ringers Replete potassium as needed Repeat blood cultures Time Spent With Patient Time: Total time managing care of this patient today ____ minutes.
--- NOTE | 2024-10-26 18:33 | MHC.SHP ---
Pre-Procedural Eval Section A - 24 Hr Update-Section A only Date of Service: 10/26/24 The patient is an INPATIENT: Yes Changes since office visit: No Cold of Flu in the past 2 weeks, No New Medical Problems, No Changes in Medication and No Patient answered all questions The patient has been examined within 24 hours of the surgical procedure. The History & Physical has been completed within 30 days and I have reviewed it.: Yes Section B - Complete if H&P > 30 days Chief Complaint: Sepsis,Uti Details of Present Illness: Uroseptic, plan for cysto, left retrograde, left stent placement Allergies: Allergies Allergy/AdvReac Type Severity Reaction Status Date / Time Darvon Allergy Intermediate oral Verified 10/24/24 12:16 swelling Doxycycline Hyclate Allergy Intermediate diarrhea, Verified 10/24/24 12:16 severe diarrhea tetracycline [TETRACYCLINE] Allergy Intermediate Itching Verified 10/24/24 12:16 Plan Diagnosis/Plan: Unchanged (Left stent placement) I have reviewed the history and physical and performed a pertinent physical examination on my patient. No changes have occurred unless specified. Time Spent With Patient Time: Total time managing care of this patient today ____ minutes.
[2024-10-26 18:39] LABS: Reflex Lactate? Lactic Acid Added
--- NOTE | 2024-10-26 18:51 | PC.NURSE ---
EMERGENCY ROOM CLERK called at 16:00 FOR SVT > 200 ,: protocol for SVT and sepsis initiated , HR stabilized pt went to the OR for cystoscopy with DR Mcfarlane
--- NOTE | 2024-10-26 19:04 | W.PM.OPN ---
Operative Note Operative Note Date of Service: 10/26/24 Narrative: PreOperative Diagnosis: Left obstructing renal stone Post Operative Diagnosis: Left obstructing renal stone with sepsis Procedure: Cystoscopy, left retrograde left stent placement Surgeon: Dr Eliazar Mcfarlane Anesthesia: LMA Indications for procedure: Developing sepsis week blood pressure Procedure: After informed consent was verified the patient was brought to the operating room and placed in a supine position. Anesthesia was administered per protocol. The patient was placed in modified dorsal lithotomy position and prepped and draped in a sterile fashion. A safety pause time-out was performed. Laterality of procedure and antibiotics were confirmed, appropriate imaging was available A 22 [place] cystoscope was introduced per urethra. No abnormality was noted of urethra or bladder. Both ureteric orifices were seen in a normal position. The left ureter was cannulated with an open ended catheter and a retrograde examination was performed. Obstruction with narrowing of stream seen at [facility] . A Sensor guidewire was placed under fluoroscopy and a good coil was seen within the renal pelvis. A 6 [place] by 24 double J stent was advanced over the wire and up to the level of the renal pelvis under fluoroscopic and direct visualization. The stent was seen with appropriate coil within the renal pelvis and in the bladder after deployment. Farias catheter 16 [place] placed for bladder drainage The patient tolerated the procedure well and was transferred in a stable condition to the recovery area. Pathology: Drains: As above
--- NOTE | 2024-10-26 19:19 | P.CONAN_ITS ---
[facility] Active Problems Active Problems: All Active Problems Sepsis (Acute) Bilateral kidney stones (Acute) UTI (urinary tract infection) (Acute) Cardiac arrhythmia (Acute) Afib (Acute) Ectopic cardiac beats (Acute) Acute kidney injury (Acute) Pyelonephritis of left kidney (Acute) Osteoporosis (Acute) Nicotine dependence, cigarettes, uncomplicated (Acute) UTI symptoms (Acute) Low back pain (Acute) Colon cancer screening (Acute) Generalized anxiety disorder (Acute) Ganglion cyst of volar aspect of left wrist (Acute) Mass of left wrist (Acute) Cellulitis of abdominal wall (Acute) Subcutaneous nodule of abdominal wall (Acute) Ganglion cyst (Acute) Post-menopausal (Acute) History of renal calculi (Acute) Hyperoxaluria (Acute) Kidney stone on left side (Acute) Abnormal ultrasound of endometrium (Acute) Microscopic hematuria (Acute) Cystic endometrial hyperplasia (Acute) Facial abscess (Acute) Post-menopausal bleeding (Acute) Overactive bladder (Acute) B12 deficiency (Acute) Crohn's disease (Acute) Impaired glucose tolerance (Acute) Anxiety and depression (Acute) Asthma (Acute) GERD (gastroesophageal reflux disease) (Acute) Past Medical History Medical History Afib Cellulitis and abscess of other specified site Osteoporosis Nicotine dependence, cigarettes, uncomplicated Breast cancer screening by mammogram Lip abscess Palpitations Flank pain Basal cell carcinoma Peptic ulcer disease Renal calculi Vitamin D deficiency Impaired glucose tolerance Anxiety and depression Anemia Asthma GERD (gastroesophageal reflux disease) Crohn's disease Family History Family history of problems with anesthesia: No Surgical History Surgical History History of tooth extraction History of surgical removal of ganglion cyst Hx of lithotripsy Hx of dilation and curettage Hx of cystoscopy History of hysteroscopy History of colonoscopy History of cholecystectomy Hx of appendectomy H/O tubal ligation History of lumpectomy of left breast S/P small bowel resection History of Problems with Anesthesia: No Social History Social History Household Members: Significant Other Housing: House Alcohol intake: current Alcohol intake frequency: does not drink Patient Tobacco Use Status: Never used Tobacco Tobacco use type: Cigarette Cigarette Packs Per Day: 1 Cigarettes Per Day: 15 Years Smoked: 50 e-Cigarette/Vaping Use: Never Used Second Hand Smoke Exposure: Yes Advance Directives Date on File: 10/25/24 service: No Current occupational status: 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 Cognitive needs: No Hearing needs: No Vision needs: Yes Meds Allergies Allergy/AdvReac Type Severity Reaction Status Date / Time Darvon Allergy Intermediate oral Verified 10/24/24 12:16 swelling Doxycycline Hyclate Allergy Intermediate diarrhea, Verified 10/24/24 12:16 severe diarrhea tetracycline [TETRACYCLINE] Allergy Intermediate Itching Verified 10/24/24 12:16 Active Medications: Current Medications Acetaminophen (Acetaminophen 325 Mg Tablet) 650 mg PO Q6H PRN PRN Reason: Pain, Mild 1-3,fever,headache Last Admin: 10/26/24 16:24 Dose: 650 mg Albuterol Sulfate (Albuterol Sulfate 90 Mcg 8 Gm Inhaler) 1 puff INHALE QID PRN PRN Reason: Shortness Of Breath Apixaban (Apixaban 5 Mg Tablet) 5 mg PO BID [facility] Last Admin: 10/26/24 09:03 Dose: 5 mg Azathioprine (Azathioprine 50 Mg Tablet) 100 mg PO DAILY [facility] Last Admin: 10/26/24 09:04 Dose: 100 mg Buspirone HCl (Buspirone Hcl 10 Mg Tablet) 10 mg PO DAILY [facility] Last Admin: 10/26/24 08:59 Dose: 10 mg Calcium Carbonate (Calcium Carbonate 750 Mg Tab.Chew) 750 mg PO Q4H PRN PRN Reason: Heartburn Ceftriaxone Sodium (Ceftriaxone Sodium 2 Gm Vial) 2 gm IVPUSH Q24H [facility] Dronedarone (Dronedarone Hcl 400 Mg Tablet) 400 mg PO BID [facility] Last Admin: 10/26/24 11:08 Dose: 400 mg Hydromorphone HCl (Hydromorphone Hcl 0.5 Mg/0.5 Ml Syringe) 0.5 mg IVPUSH Q3H PRN; Protocol PRN Reason: Pain, Moderate(Pain Scale 4-6) Last Admin: 10/25/24 07:46 Dose: 0.5 mg Potassium Chloride (Potassium Chloride/H20) 10 meq in 100 mls @ 100 mls/hr IV Q1H [facility] Stop: 10/26/24 19:44 Last Admin: 10/26/24 17:55 Dose: 100 mls/hr Lactated Ringer's (Lr) 1,000 mls @ 80 mls/hr IVCONT .[id number] [facility] Last Admin: 10/26/24 18:10 Dose: 80 mls/hr Magnesium Hydroxide (Milk Of Magnesia 30 Ml Oral.Susp) 30 ml PO DAILY PRN PRN Reason: Constipation Melatonin (Melatonin 3 Mg Tablet) 6 mg PO BEDTIME PRN PRN Reason: Insomnia Metoprolol Tartrate (Metoprolol Tartrate 25 Mg Tablet) 25 mg PO QID [facility]; Protocol Last Admin: 10/26/24 16:38 Dose: 25 mg Omeprazole (Omeprazole 20 Mg Capsule.Dr) 20 mg PO DAILY@0630 [facility] Last Admin: 10/26/24 05:23 Dose: 20 mg Pyridoxine HCl (Pyridoxine Hcl (Vitamin B6) 50 Mg Tablet) 100 mg PO DAILY [facility] Last Admin: 10/26/24 08:59 Dose: 100 mg Sodium Chloride (0.9 % Sodium Chloride Flush 3 Ml Syringe) 3 ml IVFLUSH QSHIFT [facility] Last Admin: 10/26/24 16:29 Dose: 3 ml Tramadol HCl (Tramadol Hcl 50 Mg Tablet) 50 mg PO DAILY [facility] Last Admin: 10/26/24 08:59 Dose: 50 mg Vitamin D (Cholecalciferol (Vitamin D3) 25 Mcg Tablet) 50 mcg PO DAILY [facility] Last Admin: 10/26/24 08:59 Dose: 50 mcg Home Medications ?Medication ?Instructions ?Recorded ?Confirmed ?Last Taken ?Type azathioprine 50 mg tablet 100 mg PO DAILY 04/24/20 10/25/24 04/01/22 History omeprazole 20 mg capsule,delayed 20 mg PO DAILY@0630 04/24/20 10/25/24 7 Days Ago History release ~10/18/24 betamethasone dipropionate 0.05 % 1 appl topical DAILY PRN Dry Skin 06/07/20 10/25/24 04/01/22 History topical cream dicyclomine 10 mg capsule 20 mg PO QID PRN abdominal 04/30/21 10/25/24 04/01/22 History cramping or discomfort cholestyramine (with sugar) 4 gram 1 ea PO BID hypercholesterolemia 12/24/23 10/25/24 7 Days Ago History oral powder ~10/18/24 albuterol sulfate 90 mcg/actuation 1 inh inhalation QID PRN Shortness 10/25/24 10/25/24 Unknown History aerosol inhaler Of Breath Exam Height,Weight and Vital Signs: Height 5 ft 4 in Weight 62 kg Last Vital Signs Temp 98.8 F 10/26/24 18:22 Pulse 91 10/26/24 18:22 Resp 18 10/26/24 18:22 BP 91/48 L 10/26/24 18:22 Pulse Ox 98 10/26/24 18:22 O2 Del Method Nasal Cannula 10/26/24 18:22 O2 Flow Rate 2 10/26/24 18:22 Oxygen Flow Rate 2 10/26/24 17:48 Pertinent Lab Results Pertinent Lab Results: Laboratory Tests 10/24/24 10/24/24 10/24/24 12:43 14:43 14:51 WBC 10.4 RBC 3.68 L Hgb 12.5 Hct 35.7 L MCV 97.0 D MCH 34.0 H MCHC 35.0 RDW 14.6 Plt Count 139 L D MPV 12.0 Immature Gran % (Auto) Cancelled Neut % (Auto) Cancelled Lymph % (Auto) Cancelled Forrest % (Auto) Cancelled Eos % (Auto) Cancelled Baso % (Auto) Cancelled Lymph # (Auto) Cancelled Forrest # (Auto) Cancelled Eos # (Auto) Cancelled Baso # (Auto) Cancelled Abs Immat Gran (auto) Cancelled Absolute Neuts (auto) Cancelled Absolute Nucleated RBC 0.000 Nucleated RBC % (auto) 0.0 Neutrophils % (Manual) 78 H Band Neutrophils % 9 H Lymphocytes % (Manual) 5 L Monocytes % (Manual) 8 Abs Neuts (Manual) 9.0 H Lymphocytes # (Manual) 0.5 L Monocytes # (Manual) 0.8 Toxic Granulation PRESENT Toxic Vacuolation PRESENT Dohle Bodies PRESENT Platelet Estimate SLIGHTLY DECREASED Large Platelets PRESENT Plt Morphology Comment NOTED RBC Morphology NOTED Macrocytosis 1+ (5-14) Ga Cells 2+ (3-5) Hold Purple Top Sodium 134 L Potassium 3.3 Chloride 98 Carbon Dioxide 24 Anion Gap 15 BUN 49 H Creatinine 1.78 H Estim Creat Clear Calc 25.3 Estimated GFR 28 POC Glucose Random Glucose 137 H Lactic Acid Calcium 9.4 Magnesium Total Bilirubin 1.2 H AST 23 ALT 12 Alkaline Phosphatase 101 Troponin I High Sens 34.7 H Total Protein 6.7 Albumin 3.4 L Lipase 9 Hold Yellow Top Urine Color Dark Yellow Urine Appearance Cloudy Urine pH 5.5 Ur Specific [place] 1.020 Urine Protein 300 (3+) H Urine Glucose (UA) Negative Urine Ketones Trace Urine Blood Large (3+) H Urine Nitrite Negative Ur Leukocyte Esterase Moderate (2+) H Urine RBC >20 H Urine WBC >50 H Ur Squamous Epith Cells 0-2 Urine Bacteria 4+ Hyaline Casts 3-5 Influenza Type A (PCR) NEGATIVE Influenza Type B (PCR) NEGATIVE RSV RNA Qual (PCR) NEGATIVE SARS-CoV-2 RNA (RT-PCR) NEGATIVE 10/24/24 10/25/24 10/25/24 15:05 04:29 05:44 WBC 8.6 RBC 2.96 L Hgb 10.2 L Hct 28.9 L MCV 97.6 MCH 34.5 H MCHC 35.3 H RDW 15.3 Plt Count TNP MPV 11.4 Immature Gran % (Auto) Neut % (Auto) Lymph % (Auto) Forrest % (Auto) Eos % (Auto) Baso % (Auto) Lymph # (Auto) Forrest # (Auto) Eos # (Auto) Baso # (Auto) Abs Immat Gran (auto) Absolute Neuts (auto) Absolute Nucleated RBC 0.000 Nucleated RBC % (auto) 0.0 Neutrophils % (Manual) Band Neutrophils % Lymphocytes % (Manual) Monocytes % (Manual) Abs Neuts (Manual) Lymphocytes # (Manual) Monocytes # (Manual) Toxic Granulation Toxic Vacuolation Dohle Bodies Platelet Estimate Large Platelets Plt Morphology Comment RBC Morphology Macrocytosis [place] Cells Hold Purple Top Sodium 138 Potassium 3.4 Chloride 107 Carbon Dioxide 22 Anion Gap 12 BUN 40 H Creatinine 1.39 Estim Creat Clear Calc 32.5 Estimated GFR 37 POC Glucose 103 Random Glucose 106 Lactic Acid 1.8 Calcium 8.3 L D Magnesium Total Bilirubin AST ALT Alkaline Phosphatase Troponin I High Sens Total Protein Albumin Lipase Hold Yellow Top Urine Color Urine Appearance Urine pH Ur Specific [place] Urine Protein Urine Glucose (UA) Urine Ketones Urine Blood Urine Nitrite Ur Leukocyte Esterase Urine RBC Urine WBC Ur Squamous Epith Cells Urine Bacteria Hyaline Casts Influenza Type A (PCR) Influenza Type B (PCR) RSV RNA Qual (PCR) SARS-CoV-2 RNA (RT-PCR) 10/26/24 10/26/24 06:53 16:34 WBC 14.1 H RBC 3.13 L Hgb 10.8 L Hct 30.1 L MCV 96.2 MCH 34.5 H MCHC 35.9 H RDW 15.2 Plt Count 155 L MPV 11.6 Immature Gran % (Auto) Neut % (Auto) Lymph % (Auto) [place] % (Auto) Eos % (Auto) Baso % (Auto) Lymph # (Auto) [place] # (Auto) Eos # (Auto) Baso # (Auto) Abs Immat Gran (auto) Absolute Neuts (auto) Absolute Nucleated RBC 0.000 Nucleated RBC % (auto) 0.0 Neutrophils % (Manual) Band Neutrophils % Lymphocytes % (Manual) Monocytes % (Manual) Abs Neuts (Manual) Lymphocytes # (Manual) Monocytes # (Manual) Toxic Granulation Toxic Vacuolation Dohle Bodies Platelet Estimate Large Platelets Plt Morphology Comment RBC Morphology Macrocytosis [place] Cells Hold Purple Top SEE NOTE Sodium 135 Potassium 3.0 L Chloride 104 Carbon Dioxide 22 Anion Gap 12 BUN 24 H Creatinine 1.09 Estim Creat Clear Calc 41.4 Estimated GFR 50 POC Glucose Random Glucose 120 H Lactic Acid 2.9 H* Calcium 8.3 L Magnesium 1.8 Total Bilirubin AST ALT Alkaline Phosphatase Troponin I High Sens Total Protein Albumin Lipase Hold Yellow Top See Note Urine Color Urine Appearance Urine pH Ur Specific [place] Urine Protein Urine Glucose (UA) Urine Ketones Urine Blood Urine Nitrite Ur Leukocyte Esterase Urine RBC Urine WBC Ur Squamous Epith Cells Urine Bacteria Hyaline Casts Influenza Type A (PCR) Influenza Type B (PCR) RSV RNA Qual (PCR) SARS-CoV-2 RNA (RT-PCR) Airway Mallampati Class: II TM Dist: >3cm Neck ROM: Full Assessment and Plan Assessment Anesthesia Assessment: Anesthesia Plan Discussed and Chart Reviewed Final Anesthetic Review Family History of Problems with Anesthesia: No History of Problems with Anesthesia: No NPO: No ASA Class: III and Emergency Final Preanesthetic Review: No Changes in Pt Med Stat, Meds/Allgs Chart Reviewed, Consent Obtained/Reviewed and Anes Risks/Benef Reviewed Patient Risk: Intermediate Procedure Risk: Low Anesthetic Plan Anesthetic Plan: GA Disposition: Standard PACU
[2024-10-26] MEDS: Potassium Chloride ER 20 MEQ TAB.ER.PRT 40 MEQ PO (20:45)
[2024-10-27] VITALS (7 sets, daily range): BP systolic 96–120; BP diastolic 53–63; PULSE 61–73; RESP 16–18; TEMP 36.1–36.9; O2SAT 98–99
[2024-10-27] MEDS: Lactated Ringers 1,000 ML 125 ML IVCONT ×3 (03:11→19:49)
[2024-10-27 07:08] LABS: Hematocrit 31.2 % (37.0-47.0); Mean Corpuscular HGB Conc 35.3 g/dl (31.0-35.0); Mean Corpuscular Hemoglobin 34.5 pg (27.0-33.0); Mean Corpuscular Volume 97.8 fL (80.0-98.0); Mean Platelet Volume 11.7 fL (9.4-12.3); Platelet Count 169 X10*3/uL (160-400); Red Blood Count 3.19 X10*6/uL (4.20-5.50); Red Cell Distribution Width 15.7 % (11.0-16.0); White Blood Count 15.4 X10*3/uL (4.8-10.8)
[2024-10-27 07:19] LABS: Anion Gap 9 (12-20); Blood Urea Nitrogen 23 mg/dL (9-16); Calcium 8.4 mg/dL (8.4-10.2); Carbon Dioxide 23 mmol/L (22-29); Chloride 109 mmol/L (96-108); Creatinine Clr Calc Pharmacy 45.6; Estimated Glomerular Filt Rate 55; Glucose Random 183 mg/dL (60-115); Sodium 137 mmol/L (135-145)
--- NOTE | 2024-10-27 08:45 | HO.POSTANES ---
Post Anesthesia Evaluation Post Anesthesia Evaluation Date of Service: 10/27/24 Vital Signs: Vital Signs Temp Pulse Resp BP Pulse Ox O2 Del Method O2 Flow Rate 10/27/24 07:19 98.4 F 61 18 102/57 L 99 Room Air 10/27/24 04:00 98.4 F 65 16 120/63 99 Nasal Cannula 2 10/27/24 00:00 98.4 F 71 16 96/53 L 98 Nasal Cannula 2 10/26/24 22:31 92/50 L Anesthesia: General Mental Status: Awake Pain Control: Satisfactory Nausea/Vomiting: None Hydration: Adequate Anesthesia-Related Issues: No Anes. Related Issues
[2024-10-27] MEDS: cefTRIAXone sodium 2 GM VIAL IVPUSH (09:09)
[2024-10-27] MEDS: Dronedarone HCl 400 MG TABLET PO ×2 (09:12→21:56)
[2024-10-27] MEDS: traMADoL HCL 50 MG TABLET PO (09:13)
[2024-10-27] MEDS: busPIRone HCl 10 MG TABLET PO (09:13)
[2024-10-27] MEDS: Cholecalciferol (Vitamin D3) 25 MCG TABLET 50 MCG PO (09:13)
[2024-10-27] MEDS: azaTHIOprine 50 MG TABLET 100 MG PO (09:13)
[2024-10-27] MEDS: Apixaban 5 MG TABLET PO ×2 (09:14→21:56)
[2024-10-27] MEDS: Pyridoxine HCl (Vitamin B6) 50 MG TABLET 100 MG PO (09:14)
[2024-10-27] MEDS: 0.9 % Sodium Chloride Flush 3 ML SYRINGE IVFLUSH (09:14)
--- NOTE | 2024-10-27 11:42 | PM.PNCARD ---
Subjective Subjective Date of Service: 10/27/24 Principal diagnosis: Atrial fibrillation, sepsis Interval history: Patient yesterday had markedly elevated heart rate consistent with SVT up to 240 beats per minute. Received adenosine with conversion to sinus rhythm. Continues to have short runs and PACs frequently. Blood pressure is on the lower side. Status post ureteral stenting. Complains of some flank pain. Denies any cardiac symptoms. However she says she feels a lot better. Review of Systems Constitutional: Reports weakness Eyes: Reports no additional eye complaints Cardiovascular: Reports no additional cardiovascular complaints Respiratory: Reports no additional respiratory complaints Genitourinary: Reports flank pain Musculoskeletal: Reports no additional musculoskeletal complaints Reports weakness Psychiatric: Reports no additional psychiatric complaints Endocrine: Reports no additional endocrine complaints Physical Exam Vital Signs: Last Vital Signs Temp 97.9 F 10/27/24 11:08 Pulse 64 10/27/24 11:08 Resp 18 10/27/24 11:08 BP 105/60 10/27/24 11:08 Pulse Ox 98 10/27/24 11:08 O2 Del Method Room Air 10/27/24 11:08 O2 Flow Rate 2 10/27/24 04:00 Oxygen Flow Rate 2 10/26/24 17:48 BMI result Body Mass Index 23.5 Const General: cooperative, comfortable, no acute distress, alert and awake Nutritional Appearance: thin Orientation/consciousness: patient oriented x3 Limitations: no limitations HEENT Head: Yes normocephalic and Yes atraumatic Neck Neck: Yes trachea midline, Yes supple and Yes no JVD Resp Effort & Inspection: normal respiratory effort Auscultation: clear to auscultation bilaterally and diminished lung sounds Cardio Jugular venous distension: no JVD Rate: regular rate Rhythm: abnormal rhythm with ectopic beats Heart sounds: S1 normal heart sound present, S2 normal heart sound present, no click, no gallops, no murmurs and no rubs GI Auscultation: normal bowel sounds Skin General skin exam: no rashes or lesions noted Neuro General: patient oriented x3 and no focal motor deficits Extrem General: Yes no clubbing, cyanosis or edema Psych Appearance: grossly normal Affect: Anxious affect present Objective Labs and Meds 10/27/24 06:39 10/27/24 06:39 Lab results: Laboratory Results - last 24 hr 10/26/24 10/26/24 10/27/24 16:34 19:55 06:39 WBC 15.4 H RBC 3.19 L Hgb 11.0 L Hct 31.2 L MCV 97.8 MCH 34.5 H MCHC 35.3 H RDW 15.7 Plt Count 169 MPV 11.7 Absolute Nucleated RBC 0.000 Nucleated RBC % (auto) 0.0 Hold Purple Top SEE NOTE Sodium 137 Potassium 4.0 D Chloride 109 H Carbon Dioxide 23 Anion Gap 9 L BUN 23 H Creatinine 0.99 Estim Creat Clear Calc 45.6 Estimated GFR 55 Random Glucose 183 H Lactic Acid 2.9 H* Lactic Acid F/U @ 2Hr 1.0 Calcium 8.4 Hold Yellow Top See Note Imaging Radiologist's impression: Impressions Guidance Fluoroscopy 10/26/24 18:48 IMPRESSION: Fluoroscopy during procedure. Please see procedure report for additional information. Electronically signed by: Neymar Toney MD 10/27/2024 07:02 AM EDT Progress Note: A&P Assessment and plan (1) Cardiac arrhythmia: Status: Acute Assessment and Plan: Cardiac arrhythmias with frequent PACs had markedly rapid SVT yesterday converted with adenosine. Also had episodes of irregular heartbeat consistent with AFib in the past. Blood pressure is on the lower side related to sepsis. Hold off on metoprolol therapy. Continue Multaq 400 mg b.i.d. to suppress cardiac arrhythmias. Continue treat underlying medical condition aggressively. For now can continue oral anticoagulation Eliquis. Will need outpatient cardiac follow-up with monitoring and consideration for ablation as outpatient. Discussed with patient and patient's family at bedside. Will follow with you Time Spent With Patient Time: Total time managing care of this patient today ____ minutes. Progress Note: Quality Stroke Does the patient have a stroke diagnosis?: No Procedures Date of Service Date of Service: 10/27/24
[2024-10-27] MEDS: HYDROmorphone HCl 0.5 MG/0.5 ML SYRINGE IVPUSH (11:49)
[2024-10-27] MEDS: Omeprazole 20 MG CAPSULE.DR PO (11:54)
--- NOTE | 2024-10-27 13:24 | P.PNIM_ITS ---
Subjective Subjective Date of Service: 10/27/24 Interval History: seen and examined this morning Follow-up for sepsis, UTI, bacteremia Status post stent placement yesterday evening for left obstructing stone Blood pressure remains soft this morning, patient with dizziness with movement. Denies fever Farias catheter with hematuria Review of Systems Review of Systems: Yes all other systems are reviewed and are negative Constitutional Constitutional: Denies chills and Denies fever(s) Cardiovascular Cardiovascular: Denies chest pain and Denies palpitations Gastrointestinal Gastrointestinal: Denies abdominal pain, Denies nausea and Denies vomiting Endocrine Endocrine: Denies palpitations Physical Exam 2 Vital Signs: Vital Signs: Last Vital Signs Temp 97.9 F 10/27/24 11:08 Pulse 64 10/27/24 11:08 Resp 18 10/27/24 11:08 BP 105/60 10/27/24 11:08 Pulse Ox 98 10/27/24 11:08 O2 Del Method Room Air 10/27/24 11:08 O2 Flow Rate 2 10/27/24 04:00 Oxygen Flow Rate 2 10/26/24 17:48 BMI result Body Mass Index 23.5 Const: General: cooperative, comfortable, alert and awake O rientation/consciousness: patient oriented x3 Resp: Effort & Inspection: normal respiratory effort, able to speak in complete sentences, no respiratory distress and no use of accessory muscles Cardio: Rate: regular rate GI: Inspection: No distended Palpation (GI): Soft to palpation Neuro: General: patient oriented x3, No moves all extremities and No CN's II- XI intact bilaterally Objective Data Active Medications Acetaminophen (Acetaminophen 325 Mg Tablet) 650 mg PO Q6H PRN PRN Reason: Pain, Mild 1-3,fever,headache Last Admin: 10/26/24 16:24 Dose: 650 mg Documented By: MYKEL Albuterol Sulfate (Albuterol Sulfate 90 Mcg 8 Gm Inhaler) 1 puff INHALE QID PRN PRN Reason: Shortness Of Breath Apixaban (Apixaban 5 Mg Tablet) 5 mg PO BID [facility] Last Admin: 10/27/24 09:14 Dose: 5 mg Documented By: MYKEL Azathioprine (Azathioprine 50 Mg Tablet) 100 mg PO DAILY [facility] Last Admin: 10/27/24 09:13 Dose: 100 mg Documented By: MYKEL Buspirone HCl (Buspirone Hcl 10 Mg Tablet) 10 mg PO DAILY [facility] Last Admin: 10/27/24 09:13 Dose: 10 mg Documented By: MYKEL Calcium Carbonate (Calcium Carbonate 750 Mg Tab.Chew) 750 mg PO Q4H PRN PRN Reason: Heartburn Ceftriaxone Sodium (Ceftriaxone Sodium 2 Gm Vial) 2 gm IVPUSH Q24H [facility] Last Admin: 10/27/24 09:09 Dose: 2 gm Documented By: MYKEL Dronedarone (Dronedarone Hcl 400 Mg Tablet) 400 mg PO BID [facility] Last Admin: 10/27/24 09:12 Dose: 400 mg Documented By: MYKEL Hydromorphone HCl (Hydromorphone Hcl 0.5 Mg/0.5 Ml Syringe) 0.5 mg IVPUSH Q3H PRN; Protocol PRN Reason: Pain, Moderate(Pain Scale 4-6) Last Admin: 10/27/24 11:49 Dose: 0.5 mg Documented By: MYKEL Lactated Ringer's (Lr) 1,000 mls @ 125 mls/hr IVCONT .Q8H [facility] Last Admin: 10/27/24 11:49 Dose: 125 mls/hr Documented By: MYKEL Magnesium Hydroxide (Milk Of Magnesia 30 Ml Oral.Susp) 30 ml PO DAILY PRN PRN Reason: Constipation Melatonin (Melatonin 3 Mg Tablet) 6 mg PO BEDTIME PRN PRN Reason: Insomnia Metoprolol Tartrate (Metoprolol Tartrate 25 Mg Tablet) 25 mg PO QID [facility]; Protocol Last Admin: 10/26/24 20:56 Dose: Not Given Documented By: ANTOINC Non-Admin Reason: Physician Held Med Naloxone HCl (Naloxone Hcl 0.4 Mg/Ml Vial) 0.04 mg IVPUSH Q5M PRN PRN Reason: Excessive sedation or RR < 8 Omeprazole (Omeprazole 20 Mg Capsule.Dr) 20 mg PO DAILY@0630 [facility] Last Admin: 10/27/24 11:54 Dose: 20 mg Documented By: MYKEL Pyridoxine HCl (Pyridoxine Hcl (Vitamin B6) 50 Mg Tablet) 100 mg PO DAILY [facility] Last Admin: 10/27/24 09:14 Dose: 100 mg Documented By: MYKEL Sodium Chloride (0.9 % Sodium Chloride Flush 3 Ml Syringe) 3 ml IVFLUSH QSHIFT [facility] Last Admin: 10/27/24 09:14 Dose: 3 ml Documented By: MYKEL Tramadol HCl (Tramadol Hcl 50 Mg Tablet) 50 mg PO DAILY [facility] Last Admin: 10/27/24 09:13 Dose: 50 mg Documented By: MYKEL Vitamin D (Cholecalciferol (Vitamin D3) 25 Mcg Tablet) 50 mcg PO DAILY [facility] Last Admin: 10/27/24 09:13 Dose: 50 mcg Documented By: MYKEL Labs 10/27/24 06:39 10/27/24 06:39 Labs: Laboratory Results - last 24 hr 10/26/24 10/26/24 10/27/24 16:34 19:55 06:39 MCV 97.8 MCH 34.5 H MCHC 35.3 H RDW 15.7 Plt Count 169 MPV 11.7 Absolute Nucleated RBC 0.000 Nucleated RBC % (auto) 0.0 Hold Purple Top SEE NOTE Anion Gap 9 L Estim Creat Clear Calc 45.6 Estimated GFR 55 Random Glucose 183 H Lactic Acid 2.9 H* Lactic Acid F/U @ 2Hr 1.0 Calcium 8.4 Hold Yellow Top See Note Microbiology Microbiology Results: Microbiology 10/24/24 15:09 Blood Culture - Final Blood - Venous Klebsiella pneumoniae 10/24/24 15:05 Blood Culture - Final Blood - Venous Klebsiella pneumoniae Assessment and Plan (1) UTI (urinary tract infection): Status: Acute (2) Sepsis: Status: Acute (3) Cardiac arrhythmia: Status: Acute Plan This is a 69F PMH crohns, nephrolithiasis, presented with weakness found to have sepsis and bacteremia due to pyelonephritis hospital course complicated by SVT requiring adenosine Sepsis due to acute pyelonephritis likely due to left ureteral stone complicated by Klebsiella bacteremia urine culture and blood cultures growing Klebsiela sensitive with ceftriaxone continue IV ceftriaxone 2 grams left stent urgently placed October 26 due to clinical deterioration continue IVF SVT [employer] 10/27 for SVT HR 240; resolved with adenosine started on multaq cardiology following new onset afib with rvr, presently rate controlled. continue eliquis, Added Multaq metoprolol on hold for soft blood pressure Cardiology following echo with preserved ejection fraction, impaired relaxation, no valvular abnormalities hematuria Due to ureteral stent follow H/H hypokalemia Improved with replacement Acute kidney injury, Due to above, resolved with IVF Crohn's Stable DVT prophylaxis with eliquis Full Code reason for continued hospitalization: sepsis Quality Stroke Does the patient have a stroke diagnosis?: No VTE Prior VTE?: No VTE Risk Level:: Medical - moderate - high VTE Device Contraindication: Treatment Not Indicated VTE Drug Contraindication: N/A - Med Ordered
[2024-10-27] MEDS: Melatonin 3 MG TABLET 6 MG PO (21:56)
[2024-10-28] VITALS (7 sets, daily range): BP systolic 92–129; BP diastolic 46–62; PULSE 71–129; RESP 16–20; TEMP 36.1–38.4; O2SAT 91–98
[2024-10-28] MEDS: Acetaminophen 325 MG TABLET 650 MG PO ×2 (03:56→23:39)
[2024-10-28] MEDS: Lactated Ringers 1,000 ML 125 ML IVCONT (03:58)
[2024-10-28] MEDS: Omeprazole 20 MG CAPSULE.DR PO (05:56)
[2024-10-28 07:50] LABS: Hematocrit 27.2 % (37.0-47.0); Hemoglobin 9.4 g/dl (12.0-16.0); Mean Corpuscular HGB Conc 34.6 g/dl (31.0-35.0); Mean Corpuscular Hemoglobin 34.1 pg (27.0-33.0); Mean Corpuscular Volume 98.6 fL (80.0-98.0); Mean Platelet Volume 11.6 fL (9.4-12.3); Platelet Count 260 X10*3/uL (160-400); Red Blood Count 2.76 X10*6/uL (4.20-5.50); Red Cell Distribution Width 15.9 % (11.0-16.0); White Blood Count 20.7 X10*3/uL (4.8-10.8)
[2024-10-28 08:09] LABS: Blood Urea Nitrogen 18 mg/dL (9-16); Creatinine Clr Calc Pharmacy 49.1; Estimated Glomerular Filt Rate > 60; Glucose Random 101 mg/dL (60-115)
[2024-10-28 08:18] LABS: Anion Gap 13 (12-20); Carbon Dioxide 21 mmol/L (22-29); Chloride 109 mmol/L (96-108); Potassium 3.1 mmol/L (3.3-5.1); Sodium 140 mmol/L (135-145)
[2024-10-28] MEDS: 0.9 % Sodium Chloride Flush 3 ML SYRINGE IVFLUSH (08:23)
[2024-10-28] MEDS: Apixaban 5 MG TABLET PO ×2 (08:25→20:28)
[2024-10-28] MEDS: Dronedarone HCl 400 MG TABLET PO ×2 (08:25→20:28)
[2024-10-28] MEDS: Pyridoxine HCl (Vitamin B6) 50 MG TABLET 100 MG PO (08:26)
[2024-10-28] MEDS: cefTRIAXone sodium 2 GM VIAL IVPUSH (08:26)
[2024-10-28] MEDS: traMADoL HCL 50 MG TABLET PO (08:26)
[2024-10-28] MEDS: busPIRone HCl 10 MG TABLET PO (08:26)
[2024-10-28] MEDS: Cholecalciferol (Vitamin D3) 25 MCG TABLET 50 MCG PO (08:26)
[2024-10-28] MEDS: azaTHIOprine 50 MG TABLET 100 MG PO (08:26)
[2024-10-28] MEDS: Potassium Chloride ER 20 MEQ TAB.ER.PRT 60 MEQ PO (08:39)
[2024-10-28 09:07] LABS: Magnesium 1.4 mg/dL (1.6-2.6)
--- NOTE | 2024-10-28 10:48 | PM.PNCARD ---
Subjective Subjective Date of Service: 10/28/24 Principal diagnosis: Atrial fibrillation, sepsis Interval history: Patient continues to have slightly elevated heart rate with frequent PACs. No sustained arrhythmias noted. Complains of weakness. Borderline blood pressure. Denies any fever or chills. Although complains of some flank pain. Also white cell count is worsening. Complains of shortness of breath with activity. Review of Systems Constitutional: Reports lethargy and Reports weakness Eyes: Reports no additional eye complaints Cardiovascular: Reports palpitations and Reports dyspnea on exertion Respiratory: Reports no additional respiratory complaints and Reports dyspnea on exertion Gastrointestinal: Reports no additional gastrointestinal complaints Reports weakness Endocrine: Reports palpitations Physical Exam Vital Signs: Last Vital Signs Temp 98.0 F 10/28/24 07:26 Pulse 90 10/28/24 07:26 Resp 16 10/28/24 07:26 BP 100/60 10/28/24 08:25 Pulse Ox 91 L 10/28/24 07:26 O2 Del Method Room Air 10/28/24 07:26 O2 Flow Rate 2 10/27/24 04:00 Oxygen Flow Rate 2 10/26/24 17:48 BMI result Body Mass Index 23.5 Const General: cooperative, comfortable, no acute distress, alert and awake Nutritional Appearance: thin Orientation/consciousness: patient oriented x3 Limitations: no limitations HEENT Head: Yes normocephalic and Yes atraumatic Neck Neck: Yes trachea midline, Yes supple and Yes no JVD Resp Effort & Inspection: normal respiratory effort Auscultation: clear to auscultation bilaterally and diminished lung sounds Cardio Jugular venous distension: no JVD Rate: regular rate Rhythm: abnormal rhythm with ectopic beats Heart sounds: S1 normal heart sound present, S2 normal heart sound present, no click, no gallops, no murmurs and no rubs GI Auscultation: normal bowel sounds Skin General skin exam: no rashes or lesions noted Neuro General: patient oriented x3 and no focal motor deficits Extrem General: Yes no clubbing, cyanosis or edema Psych Appearance: grossly normal Affect: Anxious affect present Objective Labs and Meds 10/28/24 06:35 10/28/24 06:35 Lab results: Laboratory Results - last 24 hr 10/28/24 06:35 WBC 20.7 H RBC 2.76 L Hgb 9.4 L Hct 27.2 L MCV 98.6 H MCH 34.1 H MCHC 34.6 RDW 15.9 Plt Count 260 D MPV 11.6 Absolute Nucleated RBC 0.000 Nucleated RBC % (auto) 0.0 Sodium 140 Potassium 3.1 L D Chloride 109 H Carbon Dioxide 21 L Anion Gap 13 BUN 18 H Creatinine 0.92 Estim Creat Clear Calc 49.1 Estimated GFR > 60 Random Glucose 101 Calcium 8.0 L Magnesium 1.4 L* Progress Note: A&P Assessment and plan (1) Cardiac arrhythmia: Status: Acute Assessment and Plan: Cardiac arrhythmias still persistent with PACs frequently. No atrial fibrillation SVT noted. Continue Multaq therapy. Blood pressure is lower and can not add additional metoprolol therapy at this point time. Continue treat underlying sepsis which seems to have not completely responded to treatment as the white cell counts are persistently elevated. She also complains of shortness of breath in his bilateral crackles. Advise chest x-ray to see if she has atelectasis. Incentive spirometry can be considered. If there was no significant atelectasis will check BNP. She has received significant amount of fluid. Will follow with you Time Spent With Patient Time: Total time managing care of this patient today ____ minutes. Progress Note: Quality Stroke Does the patient have a stroke diagnosis?: No Procedures Date of Service Date of Service: 10/28/24
[2024-10-28] MEDS: Magnesium Sulfate/H2O 2 GM/50 ML PIGGYBACK IV (11:11)
[2024-10-28] MEDS: Potassium Chloride Packet 20 MEQ PACKET PO (11:11)
[2024-10-28] MEDS: Lactated Ringers 1,000 ML 999 ML IV (13:31)
--- NOTE | 2024-10-28 13:34 | MHC.CM.PN ---
Per rounds, pt. is not ready to DC, she requires ongoing acute care for afib and sepsis. CM to follow for DC needs.
--- NOTE | 2024-10-28 16:24 | P.PNIM_ITS ---
Subjective Subjective Date of Service: 10/28/24 Interval History: seen and examined this morning follow up for SVT, UTI/bacteremia no further SVT no dizziness this am Review of Systems Review of Systems: Yes all other systems are reviewed and are negative Constitutional Constitutional: Denies chills and Denies fever(s) Cardiovascular Cardiovascular: Denies chest pain and Denies palpitations Respiratory Respiratory: Denies cough Gastrointestinal Gastrointestinal: Denies abdominal pain, Denies nausea and Denies vomiting Endocrine Endocrine: Denies palpitations Physical Exam 2 Vital Signs: Vital Signs: Last Vital Signs Temp 98.5 F 10/28/24 15:58 Pulse 90 10/28/24 15:58 Resp 16 10/28/24 15:58 BP 127/60 10/28/24 15:58 Pulse Ox 96 10/28/24 15:58 O2 Del Method Room Air 10/28/24 15:58 O2 Flow Rate 2 10/27/24 04:00 Oxygen Flow Rate 2 10/26/24 17:48 BMI result Body Mass Index 23.5 Const: General: cooperative, comfortable, alert and awake Nutritional Appearance: average body habitus Orientation/consciousness: patient oriented x3 Resp: Other: dim bases Effort & Inspection: normal respiratory effort, able to speak in complete sentences, no respiratory distress and no use of accessory muscles Cardio: Rate: regular rate GI: Inspection: No distended Palpation (GI): Soft to palpation Neuro: General: patient oriented x3, moves all extremities and CN's II-XI intact bilaterally Extrem: General: Yes no pedal edema Objective Data Active Medications Acetaminophen (Acetaminophen 325 Mg Tablet) 650 mg PO Q6H PRN PRN Reason: Pain, Mild 1-3,fever,headache Last Admin: 10/28/24 03:56 Dose: 650 mg Documented By: SPENCER Albuterol Sulfate (Albuterol Sulfate 90 Mcg 8 Gm Inhaler) 1 puff INHALE QID PRN PRN Reason: Shortness Of Breath Apixaban (Apixaban 5 Mg Tablet) 5 mg PO BID [facility] Last Admin: 10/28/24 08:25 Dose: 5 mg Documented By: SABRINA Azathioprine (Azathioprine 50 Mg Tablet) 100 mg PO DAILY [facility] Last Admin: 10/28/24 08:26 Dose: 100 mg Documented By: SABRINA Buspirone HCl (Buspirone Hcl 10 Mg Tablet) 10 mg PO DAILY [facility] Last Admin: 10/28/24 08:26 Dose: 10 mg Documented By: SABRINA Calcium Carbonate (Calcium Carbonate 750 Mg Tab.Chew) 750 mg PO Q4H PRN PRN Reason: Heartburn Ceftriaxone Sodium (Ceftriaxone Sodium 2 Gm Vial) 2 gm IVPUSH Q24H [facility] Last Admin: 10/28/24 08:26 Dose: 2 gm Documented By: SABRINA Dronedarone (Dronedarone Hcl 400 Mg Tablet) 400 mg PO BID [facility] Last Admin: 10/28/24 08:25 Dose: 400 mg Documented By: SABRINA Magnesium Hydroxide (Milk Of Magnesia 30 Ml Oral.Susp) 30 ml PO DAILY PRN PRN Reason: Constipation Melatonin (Melatonin 3 Mg Tablet) 6 mg PO BEDTIME PRN PRN Reason: Insomnia Last Admin: 10/27/24 21:56 Dose: 6 mg Documented By: ANTOINC Naloxone HCl (Naloxone Hcl 0.4 Mg/Ml Vial) 0.04 mg IVPUSH Q5M PRN PRN Reason: Excessive sedation or RR < 8 Omeprazole (Omeprazole 20 Mg Capsule.Dr) 20 mg PO DAILY@0630 [facility] Last Admin: 10/28/24 05:56 Dose: 20 mg Documented By: ANTOINNoel Pyridoxine HCl (Pyridoxine Hcl (Vitamin B6) 50 Mg Tablet) 100 mg PO DAILY [facility] Last Admin: 10/28/24 08:26 Dose: 100 mg Documented By: SABRINA Sodium Chloride (0.9 % Sodium Chloride Flush 3 Ml Syringe) 3 ml IVFLUSH QSHIFT [facility] Last Admin: 10/28/24 08:23 Dose: 3 ml Documented By: SABRINA Tramadol HCl (Tramadol Hcl 50 Mg Tablet) 50 mg PO DAILY [facility] Last Admin: 10/28/24 08:26 Dose: 50 mg Documented By: SABRINA Vitamin D (Cholecalciferol (Vitamin D3) 25 Mcg Tablet) 50 mcg PO DAILY [facility] Last Admin: 10/28/24 08:26 Dose: 50 mcg Documented By: SABRINA Labs 10/28/24 06:35 10/28/24 06:35 Labs: Laboratory Results - last 24 hr 10/28/24 06:35 MCV 98.6 H MCH 34.1 H MCHC 34.6 RDW 15.9 Plt Count 260 D MPV 11.6 Absolute Nucleated RBC 0.000 Nucleated RBC % (auto) 0.0 Anion Gap 13 Estim Creat Clear Calc 49.1 Estimated GFR > 60 Random Glucose 101 Calcium 8.0 L Magnesium 1.4 L* Microbiology Microbiology Results: Microbiology 10/26/24 16:35 Blood Culture - Preliminary Blood - Venous No growth after 24 hours. 10/26/24 16:35 Blood Culture - Preliminary Blood - Venous No growth after 24 hours. Assessment and Plan (1) Sepsis: Status: Acute (2) UTI (urinary tract infection): Status: Acute (3) Bacteremia: Status: Acute Plan This is a 69F PMH crohns, nephrolithiasis, presented with weakness found to have sepsis and bacteremia due to pyelonephritis hospital course complicated by SVT requiring adenosine Sepsis due to acute pyelonephritis likely due to left ureteral stone complicated by Klebsiella bacteremia urine culture and blood cultures growing Klebsiela sensitive with ceftriaxone continue IV ceftriaxone 2 grams, plan for 14 days of antibiotics left stent urgently placed October 26 due to clinical deterioration SVT [employer] 10/27 for SVT HR 240; resolved with adenosine started on multaq cardiology following no further episodes new onset afib with rvr, presently rate controlled. continue eliquis, Added Multaq metoprolol on hold for soft blood pressure Cardiology following echo with preserved ejection fraction, impaired relaxation, no valvular abnormalities hematuria, mild Due to ureteral stent follow H/H pleural effusions cxr with small b/l effusions likely due to IVF stop fluid check bnp no hypoxia not large enough to drain acute on chronic anemia h/o b12 deficiency likely component of dilution only mild hematuria above transfusion threshold follow CBC hypokalemia/hypomagnesemia replacement follow levels Acute kidney injury, Due to above, resolved with IVF Crohn's Stable DVT prophylaxis with eliquis Full Code reason for continued hospitalization: sepsis, hematuria, anemia, hypokalemia Quality Stroke Does the patient have a stroke diagnosis?: No VTE Prior VTE?: No VTE Risk Level:: Medical - moderate - high VTE Device Contraindication: Treatment Not Indicated VTE Drug Contraindication: N/A - Med Ordered
[2024-10-28] MEDS: oxyCODONE HCl Immed Release 5 MG TABLET PO (17:46)
[2024-10-28] MEDS: traZODone HCL 25 MG HALFTAB PO (23:39)
[2024-10-29] VITALS (7 sets, daily range): BP systolic 101–126; BP diastolic 53–74; PULSE 70–98; RESP 16–18; TEMP 36.9–37.6; O2SAT 94–100
[2024-10-29] MEDS: Omeprazole 20 MG CAPSULE.DR PO (06:02)
[2024-10-29 07:52] LABS: Hematocrit 27.7 % (37.0-47.0); Hemoglobin 9.6 g/dl (12.0-16.0); Mean Corpuscular HGB Conc 34.7 g/dl (31.0-35.0); Mean Corpuscular Hemoglobin 34.7 pg (27.0-33.0); Mean Platelet Volume 11.1 fL (9.4-12.3); Platelet Count 374 X10*3/uL (160-400); Red Blood Count 2.77 X10*6/uL (4.20-5.50); Red Cell Distribution Width 15.7 % (11.0-16.0); White Blood Count 18.2 X10*3/uL (4.8-10.8)
[2024-10-29 08:13] LABS: B Type Natriuretic Peptide 657 pg/mL (<100)
[2024-10-29 08:18] LABS: Anion Gap 11 (12-20); Blood Urea Nitrogen 11 mg/dL (9-16); Calcium 8.1 mg/dL (8.4-10.2); Carbon Dioxide 26 mmol/L (22-29); Chloride 108 mmol/L (96-108); Creatinine Clr Calc Pharmacy 45.6; Estimated Glomerular Filt Rate 55; Glucose Random 117 mg/dL (60-115); Potassium 3.6 mmol/L (3.3-5.1); Sodium 141 mmol/L (135-145)
[2024-10-29] MEDS: Cholecalciferol (Vitamin D3) 25 MCG TABLET 50 MCG PO (09:48)
[2024-10-29] MEDS: busPIRone HCl 10 MG TABLET PO (09:48)
[2024-10-29] MEDS: azaTHIOprine 50 MG TABLET 100 MG PO (09:48)
[2024-10-29] MEDS: Dronedarone HCl 400 MG TABLET PO ×2 (09:48→21:16)
[2024-10-29] MEDS: traMADoL HCL 50 MG TABLET PO (09:48)
[2024-10-29] MEDS: cefTRIAXone sodium 2 GM VIAL IVPUSH (09:48)
[2024-10-29] MEDS: Apixaban 5 MG TABLET PO ×2 (09:48→21:16)
[2024-10-29] MEDS: Pyridoxine HCl (Vitamin B6) 50 MG TABLET 100 MG PO (09:48)
[2024-10-29] MEDS: 0.9 % Sodium Chloride Flush 3 ML SYRINGE IVFLUSH ×3 (09:50→21:16)
[2024-10-29] MEDS: Potassium Chloride Packet 20 MEQ PACKET 40 MEQ PO (09:51)
[2024-10-29] MEDS: Magnesium Sulfate/H2O 2 GM/50 ML PIGGYBACK IV (10:00)
--- NOTE | 2024-10-29 10:07 | P.PNCA_ITS ---
Subjective Subjective Date of Service: 10/29/24 Principal diagnosis: Atrial fibrillation, sepsis Interval history: Had low-grade fever overnight. Just had another episode of SVT that was brief but associated with fluttering and lightheadedness. Blood pressure is improved. She still has shortness of breath laying down as well as moving around. Chest x-ray shows bilateral pleural effusion. Her IV fluids were stopped this morning. Her blood pressure is improved. Her white cell count is downtrending. Review of Systems Constitutional: Reports weakness Eyes: Reports no additional eye complaints Cardiovascular: Reports lightheadedness and Reports palpitations Gastrointestinal: Reports no additional gastrointestinal complaints Reports weakness Endocrine: Reports palpitations Physical Exam Vital Signs: Last Vital Signs Temp 99.7 F 10/29/24 07:33 Pulse 98 10/29/24 07:33 Resp 16 10/29/24 07:33 BP 123/74 10/29/24 07:33 Pulse Ox 100 10/29/24 07:33 O2 Del Method Nasal Cannula 10/29/24 07:33 O2 Flow Rate 1 10/29/24 07:33 Oxygen Flow Rate 2 10/26/24 17:48 BMI result Body Mass Index 23.5 Const General: cooperative, comfortable, no acute distress, alert and awake Nutritional Appearance: thin Orientation/consciousness: patient oriented x3 Limitations: no limitations HEENT Head: Yes normocephalic and Yes atraumatic Neck Neck: Yes trachea midline, Yes supple and Yes no JVD Resp Effort & Inspection: normal respiratory effort Auscultation: clear to auscultation bilaterally, crackles and diminished lung sounds Cardio Jugular venous distension: no JVD Rate: regular rate Rhythm: abnormal rhythm with ectopic beats Heart sounds: S1 normal heart sound present, S2 normal heart sound present, no click, no gallops, no murmurs and no rubs GI Auscultation: normal bowel sounds Skin General skin exam: no rashes or lesions noted Neuro General: patient oriented x3 and no focal motor deficits Extrem General: Yes no clubbing, cyanosis or edema Psych Appearance: grossly normal Affect: Anxious affect present Objective Labs and Meds 10/29/24 06:43 10/29/24 06:43 Lab results: Laboratory Results - last 24 hr 10/29/24 06:43 WBC 18.2 H RBC 2.77 L Hgb 9.6 L Hct 27.7 L MCV 100.0 H MCH 34.7 H MCHC 34.7 RDW 15.7 Plt Count 374 D MPV 11.1 Absolute Nucleated RBC 0.000 Nucleated RBC % (auto) 0.0 Sodium 141 Potassium 3.6 Chloride 108 Carbon Dioxide 26 Anion Gap 11 L BUN 11 Creatinine 0.99 Estim Creat Clear Calc 45.6 Estimated GFR 55 Random Glucose 117 H Calcium 8.1 L B-Natriuretic Peptide 657 H Imaging Radiologist's impression: Impressions Chest X-Ray 10/28/24 13:15 IMPRESSION: Small bilateral pleural effusions. Electronically signed by: Neymar Toney MD 10/28/2024 02:00 PM EDT RP Progress Note: A&P Assessment and plan (1) Cardiac arrhythmia: Status: Acute Assessment and Plan: Cardiac arrhythmias with more prominently SVTs noted now. No episodes of atrial fibrillation. It is possible that prior episodes had no atrial fibrillation. Multaq is not completely effective At this point time. Add low- dose Lopressor 12.5 mg q.6 hours. Also increased shortness of breath with evidence of pleural effusion maybe fluid overload related to hydration. Continue monitor. Incentive spirometry. If she becomes more short of breath hypoxemic would consider IV diuretics. Blood pressure is still on the softer side. Continue to treat her underlying sepsis / infection aggressively. Will follow with you Time Spent With Patient Time: Total time managing care of this patient today ____ minutes. Progress Note: Quality Stroke Does the patient have a stroke diagnosis?: No Procedures Date of Service Date of Service: 10/29/24
[2024-10-29 10:08] LABS: Magnesium 1.9 mg/dL (1.6-2.6)
[2024-10-29] MEDS: Metoprolol Tartrate 12.5 MG HALFTAB PO ×3 (10:20→21:16)
[2024-10-29] MEDS: vancomycin HCL 1,500 MG in 0.9 % Sodium Chloride 500 ML 333.33 MG IV (10:34)
--- NOTE | 2024-10-29 10:51 | PHA.PROG ---
Admission Date/Time: October 24, 2024 18:20 Indication: empiric therapy Weight in k kg Adjusted body weight in Kg: [place] body weight in Kg: Obesity Dosing Indication % IBW: BMI 23.5 Serum Creatinine - Last 168 Hours 10/24/24 10/25/24 10/26/24 12:43 05:44 06:53 Creatinine 1.78 H 1.39 1.09 10/27/24 10/28/24 10/29/24 06:39 06:35 06:43 Creatinine 0.99 0.92 0.99 Estimated CrCl and GFR - Last 168 Hours 10/24/24 10/25/24 10/26/24 12:43 05:44 06:53 Estim Creat Clear Calc 25.3 32.5 41.4 Estimated GFR 28 37 50 10/27/24 10/28/24 10/29/24 06:39 06:35 06:43 Estim Creat Clear Calc 45.6 49.1 45.6 Estimated GFR 55 > 60 55 Vancomycin Loading Dose: 1500mg X1 Current Vancomycin Dosing Regimen: 1250mg Q24H Vancomycin Monitoring using AUC goal of 400 - 600 range with trough as surrogate marker: 532 Date and Time for next Vancomycin Level to be drawn: 10/31 @0900 Pharmacist Comments on Vancomycin Plan: pt's renal function has improved. Starting off to target trough of 15.6. The be checked tomorrow and readjusted if renal worsens, since trough isn't tomorrow. Vancomycin dosing will take advantage of [employer]RX as a clinical decision support tool that uses Bayesian modeling to calculate individual patient's pharmacokinetic parameters and forecast the patient's drug concentration time course with the target goal AUC 24 range of 400 - 600 mg/L/hr.
--- NOTE | 2024-10-29 11:41 | P.PNIM_ITS ---
Subjective Subjective Date of Service: 10/29/24 Interval History: seen and examined this morning follow up for SVT, uti had 2 brief episodes of SVT his am feeling some dyspea with ambulation Review of Systems Review of Systems: Yes all other systems are reviewed and are negative Constitutional Constitutional: Denies chills and Denies fever(s) Physical Exam 2 Vital Signs: Vital Signs: Last Vital Signs Temp 98.4 F 10/29/24 11:24 Pulse 80 10/29/24 11:24 Resp 16 10/29/24 11:24 BP 101/53 L 10/29/24 11:24 Pulse Ox 100 10/29/24 11:24 O2 Del Method Nasal Cannula 10/29/24 11:24 O2 Flow Rate 1 10/29/24 11:24 Oxygen Flow Rate 2 10/26/24 17:48 BMI result Body Mass Index 23.5 Const: General: cooperative, comfortable, alert and awake Nutritional Appearance: average body habitus Orientation/consciousness: patient oriented x3 Resp: Other: dim bases Effort & Inspection: normal respiratory effort, able to speak in complete sentences, no respiratory distress and no use of accessory muscles Cardio: Rate: regular rate GI: Inspection: No distended Palpation (GI): Soft to palpation Neuro: General: patient oriented x3, moves all extremities and CN's II-XI intact bilaterally Extrem: General: Yes no pedal edema Objective Data Active Medications Acetaminophen (Acetaminophen 325 Mg Tablet) 975 mg PO Q6H PRN PRN Reason: Pain, Mild 1-3,fever,headache Albuterol Sulfate (Albuterol Sulfate 90 Mcg 8 Gm Inhaler) 1 puff INHALE QID PRN PRN Reason: Shortness Of Breath Apixaban (Apixaban 5 Mg Tablet) 5 mg PO BID [facility] Last Admin: 10/29/24 09:48 Dose: 5 mg Documented By: SABRINA Azathioprine (Azathioprine 50 Mg Tablet) 100 mg PO DAILY [facility] Last Admin: 10/29/24 09:48 Dose: 100 mg Documented By: SABRINA Buspirone HCl (Buspirone Hcl 10 Mg Tablet) 10 mg PO DAILY [facility] Last Admin: 10/29/24 09:48 Dose: 10 mg Documented By: SABRINA Calcium Carbonate (Calcium Carbonate 750 Mg Tab.Chew) 750 mg PO Q4H PRN PRN Reason: Heartburn Ceftriaxone Sodium (Ceftriaxone Sodium 2 Gm Vial) 2 gm IVPUSH Q24H [facility] Last Admin: 10/29/24 09:48 Dose: 2 gm Documented By: SABRINA Dronedarone (Dronedarone Hcl 400 Mg Tablet) 400 mg PO BID [facility] Last Admin: 10/29/24 09:48 Dose: 400 mg Documented By: SABRINA Vancomycin HCl 1,250 mg/ (Sodium Chloride) 250 mls @ 166.667 mls/hr IV Q24H [facility] Magnesium Hydroxide (Milk Of Magnesia 30 Ml Oral.Susp) 30 ml PO DAILY PRN PRN Reason: Constipation Melatonin (Melatonin 3 Mg Tablet) 6 mg PO BEDTIME PRN PRN Reason: Insomnia Last Admin: 10/27/24 21:56 Dose: 6 mg Documented By: ANTOINNoel Metoprolol Tartrate (Metoprolol Tartrate 12.5 Mg Halftab) 12.5 mg PO Q6H [facility]; Protocol Last Admin: 10/29/24 10:20 Dose: 12.5 mg Documented By: SABRINA Naloxone HCl (Naloxone Hcl 0.4 Mg/Ml Vial) 0.04 mg IVPUSH Q5M PRN PRN Reason: Excessive sedation or RR < 8 Omeprazole (Omeprazole 20 Mg Capsule.Dr) 20 mg PO DAILY@0630 [facility] Last Admin: 10/29/24 06:02 Dose: 20 mg Documented By: SPENCER Oxycodone HCl (Oxycodone Hcl Immed Release 5 Mg Tablet) 5 mg PO Q6H PRN PRN Reason: Pain, Severe (Pain Scale 7-10) Last Admin: 10/28/24 17:46 Dose: 5 mg Documented By: KATE Pharmacy Consult (Consult Rx Vancomycin Dosing) 1 each MISCELLANE DAILY PRN PRN Reason: Consult order Pyridoxine HCl (Pyridoxine Hcl (Vitamin B6) 50 Mg Tablet) 100 mg PO DAILY [facility] Last Admin: 10/29/24 09:48 Dose: 100 mg Documented By: SABRINA Sodium Chloride (0.9 % Sodium Chloride Flush 3 Ml Syringe) 3 ml IVFLUSH QSHIFT [facility] Last Admin: 10/29/24 09:50 Dose: 3 ml Documented By: SABRINA Tramadol HCl (Tramadol Hcl 50 Mg Tablet) 50 mg PO DAILY [facility] Last Admin: 10/29/24 09:48 Dose: 50 mg Documented By: SABRINA Trazodone HCl (Trazodone Hcl 25 Mg Halftab) 25 mg PO BEDTIME MRX1 PRN PRN Reason: Insomnia Last Admin: 10/28/24 23:39 Dose: 25 mg Documented By: ANTOINC Vitamin D (Cholecalciferol (Vitamin D3) 25 Mcg Tablet) 50 mcg PO DAILY [facility] Last Admin: 10/29/24 09:48 Dose: 50 mcg Documented By: SABRINA Labs 10/29/24 06:43 10/29/24 06:43 Labs: Laboratory Results - last 24 hr 10/29/24 06:43 MCV 100.0 H MCH 34.7 H MCHC 34.7 RDW 15.7 Plt Count 374 D MPV 11.1 Absolute Nucleated RBC 0.000 Nucleated RBC % (auto) 0.0 Anion Gap 11 L Estim Creat Clear Calc 45.6 Estimated GFR 55 Random Glucose 117 H Calcium 8.1 L Magnesium 1.9 B-Natriuretic Peptide 657 H Microbiology Microbiology Results: Microbiology 10/26/24 16:35 Blood Culture - Preliminary Blood - Venous No growth after 48 hours. 10/26/24 16:35 Blood Culture - Preliminary Blood - Venous No growth after 48 hours. Assessment and Plan (1) Bacteremia: Status: Acute (2) Sepsis: Status: Acute (3) SVT (supraventricular tachycardia): Status: Acute (4) Pyelonephritis of left kidney: Status: Acute Plan This is a 69F PMH crohns, nephrolithiasis, presented with weakness found to have sepsis and bacteremia due to pyelonephritis hospital course complicated by SVT requiring adenosine Sepsis due to acute pyelonephritis likely due to left ureteral stone complicated by Klebsiella bacteremia urine culture and blood cultures growing Klebsiela sensitive to ceftriaxone left stent urgently placed October 26 due to clinical deterioration initially treated with IV ceftriaxone 2 grams, had fever overnight, will broaden coverage given recent instrumentation and start cefepime if recurrent fever will re-culture SVT [employer] 10/27 for SVT HR 240; resolved with adenosine started on multaq 10/29 with multiple brief episodes of SVT previously on lopressor which was stopped due to low bp; resume low dose lopressor and monitor bp closely replace lytes to keep K>4 and mag >2 cardiology following new onset afib with rvr, presently rate controlled ? possible that prior episodes had no atrial fibrillation and were svt continue eliquis, Multaq low dose metoprolol resumed as above Cardiology following echo with preserved ejection fraction, impaired relaxation, no valvular abnormalities hematuria, mild Due to ureteral stent resolved; H/H stable faustin removed pleural effusions cxr with small b/l effusions likely due to IVF stop fluid hold off on lasix due to low bp acute on chronic anemia h/o b12 deficiency likely component of dilution only mild hematuria above transfusion threshold follow CBC hypokalemia/hypomagnesemia replacement follow levels Acute kidney injury, Due to above, resolved with IVF Crohn's on imuran Stable DVT prophylaxis with eliquis Full Code reason for continued hospitalization: sepsis, hematuria, anemia, persistent arrhythmia, low blood pressure Quality Stroke Does the patient have a stroke diagnosis?: No VTE Prior VTE?: No VTE Risk Level:: Medical - moderate - high VTE Device Contraindication: Treatment Not Indicated VTE Drug Contraindication: N/A - Med Ordered
[2024-10-29 14:43] LABS: Adenovirus PCR Not Detected (Not Detect.); Bordetella parapertussis PCR Not Detected (Not Detect.); Bordetella pertussis PCR Not Detected (Not Detect.); Chlamydia pneumoniae PCR Not Detected (Not Detect.); Coronavirus 229E PCR Not Detected (Not Detect.); Coronavirus HKU1 PCR Not Detected (Not Detect.); Coronavirus NL63 PCR Not Detected (Not Detect.); Coronavirus OC43 PCR Not Detected (Not Detect.); Human metapneumovirus PCR Not Detected (Not Detect.); Influenza A PCR Not Detected (Not Detect.); Influenza B PCR Not Detected (Not Detect.); Mycoplasma pneumoniae PCR Not Detected (Not Detect.); Parainfluenza 1 PCR Not Detected (Not Detect.); Parainfluenza 2 PCR Not Detected (Not Detect.); Parainfluenza 3 PCR Not Detected (Not Detect.); Parainfluenza 4 PCR Not Detected (Not Detect.); RSV PCR Not Detected (Not Detect.); Rhino/Enterovirus PCR Not Detected (Not Detect.)
[2024-10-29 14:45] LABS: Influenza A H1 PCR Not Detected (Not Detect.); Influenza A H1-2009 PCR Not Detected (Not Detect.); Influenza A H3 PCR Not Detected (Not Detect.); SARS-CoV-2 PCR Not Detected (Not Detect.)
[2024-10-29] MEDS: Dicyclomine HCl 10 MG CAPSULE 20 MG PO (14:55)
--- NOTE | 2024-10-29 15:34 | PC.NURSE ---
0900- Patient had 10 second run of SVT HR up to 170s, c/o feeling lightheaded and dizzy upon assessment with symptoms quickly resolving. PA notified. 1030- Patient had another episode of SVT for 2 minutes resolving on its own without any intervention. At bedside with patient during this episode, c/o chest fluttering and dizziness. PA and welcome center attendant notified. Dip Brazier at bedside to evaluate. New order for po metoprolol 12.5mg q 6 hrs. Repeat BP 101/53 at 1100. Patient c/o mild SOB with activity throughout the day, 02 98% on 1L NC, fine crackles to lower bases. Patient educated and encouraged to use incentive spirometer.
[2024-10-29] MEDS: Acetaminophen 325 MG TABLET 975 MG PO (17:34)
[2024-10-29] MEDS: cefEPime HCl 2 GM in 0.9 % Sodium Chloride 50 ML IV (17:35)
[2024-10-30] MEDS: Acetaminophen 325 MG TABLET 975 MG PO (01:15)
[2024-10-30] MEDS: cefEPime HCl 2 GM in 0.9 % Sodium Chloride 50 ML IV ×3 (01:16→16:23)
[2024-10-30 04:00] VITALS: BP 101/59; PULSE 72; RESP 16; TEMP 36.9; O2SAT 98
[2024-10-30] MEDS: Omeprazole 20 MG CAPSULE.DR PO (05:37)
[2024-10-30] MEDS: Metoprolol Tartrate 12.5 MG HALFTAB PO ×3 (05:37→20:32)
[2024-10-30 07:39] VITALS: BP 121/60; PULSE 65; RESP 16; TEMP 36.4; O2SAT 100
[2024-10-30] MEDS: 0.9 % Sodium Chloride Flush 3 ML SYRINGE IVFLUSH ×2 (09:41→16:22)
[2024-10-30] MEDS: Dronedarone HCl 400 MG TABLET PO ×2 (09:42→20:32)
[2024-10-30] MEDS: Apixaban 5 MG TABLET PO ×2 (09:42→20:32)
[2024-10-30] MEDS: busPIRone HCl 10 MG TABLET PO (09:42)
[2024-10-30] MEDS: Cholecalciferol (Vitamin D3) 25 MCG TABLET 50 MCG PO (09:42)
[2024-10-30] MEDS: Pyridoxine HCl (Vitamin B6) 50 MG TABLET 100 MG PO (09:42)
[2024-10-30] MEDS: traMADoL HCL 50 MG TABLET PO (09:43)
[2024-10-30] MEDS: azaTHIOprine 50 MG TABLET 100 MG PO (09:43)
[2024-10-30] MEDS: Famotidine/PF 20 MG/2 ML VIAL IVPUSH (10:19)
[2024-10-30 10:46] LABS: Basophils Absolute Auto 0.1 X10*3/uL (0.0-0.2); Basophils Percent Auto 0.3 % (0-2); Eosinophils Absolute Auto 0.2 X10*3/uL (0.0-0.4); Eosinophils Percent Auto 0.8 % (0-4); Hematocrit 26.6 % (37.0-47.0); Hemoglobin 8.8 g/dl (12.0-16.0); Imm Gran Abs Auto 0.24 X10*3/uL (0.00-0.03); Imm Gran Pct Auto 1.3 % (0.0-0.4); Lymphocytes Absolute Auto 0.4 X10*3/uL (1.2-4.9); MANUAL DIFF FLAG SCAN; Mean Corpuscular HGB Conc 33.1 g/dl (31.0-35.0); Mean Corpuscular Hemoglobin 34.4 pg (27.0-33.0); Mean Corpuscular Volume 103.9 fL (80.0-98.0); Monocytes Absolute Auto 0.5 X10*3/uL (0.1-1.2); Monocytes Percent Auto 2.5 % (2-11); Neutrophils Absolute Auto 17.1 x10*3/uL (2.0-8.3); Neutrophils Percent Auto 93.1 % (45-73); Platelet Count 410 X10*3/uL (160-400); Red Blood Count 2.56 X10*6/uL (4.20-5.50); Red Cell Distribution Width 15.9 % (11.0-16.0); SCAN SMEAR FLAG 1; White Blood Count 18.4 X10*3/uL (4.8-10.8)
[2024-10-30 11:02] LABS: Anion Gap 12 (12-20); Blood Urea Nitrogen 10 mg/dL (9-16); Calcium 8.1 mg/dL (8.4-10.2); Carbon Dioxide 26 mmol/L (22-29); Chloride 107 mmol/L (96-108); Creatinine Clr Calc Pharmacy 49.6; Estimated Glomerular Filt Rate > 60; Glucose Random 193 mg/dL (60-115); Potassium 3.5 mmol/L (3.3-5.1); Sodium 141 mmol/L (135-145)
[2024-10-30 11:22] LABS: SLIDE REVIEW VERIFIED
--- NOTE | 2024-10-30 11:44 | P.PNIM_ITS ---
Subjective Subjective Date of Service: 10/30/24 Interval History: Seen and examined this morning Follow-up for sepsis, UTI, NSVT Reporting mid abdominal pain Dizziness has resolved, able ambulate Had some orthopnea overnight, breathing seems better this am Review of Systems Review of Systems: Yes all other systems are reviewed and are negative Constitutional Constitutional: Denies chills and Denies fever(s) Cardiovascular Cardiovascular: Denies chest pain and Denies palpitations Endocrine Endocrine: Denies palpitations Physical Exam 2 Vital Signs: Vital Signs: Last Vital Signs Temp 97.6 F 10/30/24 07:39 Pulse 65 10/30/24 07:39 Resp 16 10/30/24 07:39 BP 121/60 10/30/24 07:39 Pulse Ox 100 10/30/24 07:39 O2 Del Method Nasal Cannula 10/30/24 07:39 O2 Flow Rate 1 10/30/24 07:39 Oxygen Flow Rate 2 10/26/24 17:48 BMI result Body Mass Index 23.5 Const: General: cooperative, comfortable, alert and awake Nutritional Appearance: average body habitus Orientation/consciousness: patient oriented x3 Resp: Other: Basilar rales Effort & Inspection: normal respiratory effort, able to speak in complete sentences, no respiratory distress and no use of accessory muscles Cardio: Rate: regular rate GI: Inspection: No distended Palpation (GI): Soft to palpation Neuro: General: patient oriented x3, moves all extremities and CN's II-XI intact bilaterally Extrem: General: Yes no pedal edema Objective Data Active Medications Acetaminophen (Acetaminophen 325 Mg Tablet) 975 mg PO Q6H PRN PRN Reason: Pain, Mild 1-3,fever,headache Last Admin: 10/30/24 01:15 Dose: 975 mg Documented By: ELVA Albuterol Sulfate (Albuterol Sulfate 90 Mcg 8 Gm Inhaler) 1 puff INHALE QID PRN PRN Reason: Shortness Of Breath Apixaban (Apixaban 5 Mg Tablet) 5 mg PO BID [facility] Last Admin: 10/30/24 09:42 Dose: 5 mg Documented By: ARANZA Azathioprine (Azathioprine 50 Mg Tablet) 100 mg PO DAILY [facility] Last Admin: 10/30/24 09:43 Dose: 100 mg Documented By: ARANZA Buspirone HCl (Buspirone Hcl 10 Mg Tablet) 10 mg PO DAILY [facility] Last Admin: 10/30/24 09:42 Dose: 10 mg Documented By: ARANZA Calcium Carbonate (Calcium Carbonate 750 Mg Tab.Chew) 750 mg PO Q4H PRN PRN Reason: Heartburn Dicyclomine HCl (Dicyclomine Hcl 10 Mg Capsule) 20 mg PO QID PRN PRN Reason: abdominal cramping or discomfort Last Admin: 10/29/24 14:55 Dose: 20 mg Documented By: SABRINA Dronedarone (Dronedarone Hcl 400 Mg Tablet) 400 mg PO BID [facility] Last Admin: 10/30/24 09:42 Dose: 400 mg Documented By: ARANZA Famotidine (Famotidine/Pf 20 Mg/2 Ml Vial) 20 mg IVPUSH DAILY [facility] Last Admin: 10/30/24 10:19 Dose: 20 mg Documented By: ARANZA Cefepime HCl 2 gm/ Sodium (Chloride) 50 mls @ 100 mls/hr IV Q8H [facility] Last Infusion: 10/30/24 10:14 Dose: Infused Documented By: ARANZA Magnesium Hydroxide (Milk Of Magnesia 30 Ml Oral.Susp) 30 ml PO DAILY PRN PRN Reason: Constipation Melatonin (Melatonin 3 Mg Tablet) 6 mg PO BEDTIME PRN PRN Reason: Insomnia Last Admin: 10/27/24 21:56 Dose: 6 mg Documented By: ANTOINC Metoprolol Tartrate (Metoprolol Tartrate 12.5 Mg Halftab) 12.5 mg PO Q6H [facility]; Protocol Last Admin: 10/30/24 09:42 Dose: 12.5 mg Documented By: ARANZA Naloxone HCl (Naloxone Hcl 0.4 Mg/Ml Vial) 0.04 mg IVPUSH Q5M PRN PRN Reason: Excessive sedation or RR < 8 Omeprazole (Omeprazole 20 Mg Capsule.Dr) 20 mg PO DAILY@0630 [facility] Last Admin: 10/30/24 05:37 Dose: 20 mg Documented By: ELVA Oxycodone HCl (Oxycodone Hcl Immed Release 5 Mg Tablet) 5 mg PO Q6H PRN PRN Reason: Pain, Severe (Pain Scale 7-10) Last Admin: 10/28/24 17:46 Dose: 5 mg Documented By: KATE Pyridoxine HCl (Pyridoxine Hcl (Vitamin B6) 50 Mg Tablet) 100 mg PO DAILY [facility] Last Admin: 10/30/24 09:42 Dose: 100 mg Documented By: ARANZA Sodium Chloride (0.9 % Sodium Chloride Flush 3 Ml Syringe) 3 ml IVFLUSH QSHIFT [facility] Last Admin: 10/30/24 09:41 Dose: 3 ml Documented By: ARANZA Tramadol HCl (Tramadol Hcl 50 Mg Tablet) 50 mg PO DAILY [facility] Last Admin: 10/30/24 09:43 Dose: 50 mg Documented By: ARANZA Trazodone HCl (Trazodone Hcl 25 Mg Halftab) 25 mg PO BEDTIME MRX1 PRN PRN Reason: Insomnia Last Admin: 10/28/24 23:39 Dose: 25 mg Documented By: ANTOINC Vitamin D (Cholecalciferol (Vitamin D3) 25 Mcg Tablet) 50 mcg PO DAILY [facility] Last Admin: 10/30/24 09:42 Dose: 50 mcg Documented By: ARANZA Labs 10/30/24 10:00 10/30/24 10:00 Labs: Laboratory Results - last 24 hr 10/29/24 10/30/24 10:15 10:00 MCV 103.9 H MCH 34.4 H MCHC 33.1 RDW 15.9 Plt Count 410 H MPV 11.0 Immature Gran % (Auto) 1.3 H Neut % (Auto) 93.1 H Lymph % (Auto) 2.0 L [place] % (Auto) 2.5 Eos % (Auto) 0.8 Baso % (Auto) 0.3 Lymph # (Auto) 0.4 L [place] # (Auto) 0.5 Eos # (Auto) 0.2 Baso # (Auto) 0.1 Abs Immat Gran (auto) 0.24 H Absolute Neuts (auto) 17.1 H Absolute Nucleated RBC 0.000 Nucleated RBC % (auto) 0.0 Smear Tech's Comments VERIFIED Anion Gap 12 Estim Creat Clear Calc 49.6 Estimated GFR > 60 Random Glucose 193 H Calcium 8.1 L Magnesium 2.0 Respiratory Panel [place] See Note Adenovirus (Rapid PCR) Not Detected B.pert (TEM-PCR) Not Detected B.parapertussis DNA PCR Not Detected C. pneumoniae DNA (PCR) Not Detected Coronavirus OC43 (PCR) Not Detected Coronavirus HKU1 (PCR) Not Detected Coronavirus 229E (PCR) Not Detected Coronavirus NL63 (PCR) Not Detected Human Metapneumovir PCR Not Detected Influenza A (RT-PCR) Not Detected Influenza A (H1) PCR Not Detected Influ A (H1/09) PCR Not Detected Influenza A (H3) PCR Not Detected Influenza B (RT-PCR) Not Detected M. pneumoniae (PCR) Not Detected Parainfluenza 1 (PCR) Not Detected Parainfluenza 2 (PCR) Not Detected Parainfluenza 3 (PCR) Not Detected Parainfluenza 4 (PCR) Not Detected RSV (PCR) Not Detected Entero/Rhino (PCR) Not Detected SARS-CoV-2 RNA (RT-PCR) Not Detected Assessment and Plan (1) SVT (supraventricular tachycardia): Status: Acute (2) Bacteremia: Status: Acute (3) Sepsis: Status: Acute (4) Cardiac arrhythmia: Status: Acute Plan This is a 69F PMH crohns, nephrolithiasis, presented with weakness found to have sepsis and bacteremia due to pyelonephritis hospital course complicated by SVT requiring adenosine abdominal pain IV pepcid abdominal US check LFts Sepsis due to acute pyelonephritis likely due to left ureteral stone complicated by Klebsiella bacteremia urine culture and blood cultures growing Klebsiela sensitive to ceftriaxone left stent urgently placed October 26 due to clinical deterioration initially treated with IV ceftriaxone 2 grams, had fever overnight, will broaden coverage given recent instrumentation and start cefepime if recurrent fever will re-culture 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 possible that prior episodes had no atrial fibrillation and were svt continue eliquis, Multaq; low dose metoprolol resumed as above Cardiology following echo with preserved ejection fraction, impaired relaxation, no valvular abnormalities pleural effusions cxr with small b/l effusions likely due to IVF stop fluid if bp remains stable will trial low dose lasix hematuria, mild Due to ureteral stent resolved; H/H stable faustin removed acute on chronic anemia h/o b12 deficiency likely component of dilution H/H trending down, but reamins above transfusion threshold follow CBC hypokalemia/hypomagnesemia Improved with replacement Acute kidney injury, Due to above, resolved with IVF Crohn's on imuran Stable DVT prophylaxis with eliquis Full Code reason for continued hospitalization: sepsis, hematuria, anemia, persistent arrhythmia, low blood pressure Quality Stroke Does the patient have a stroke diagnosis?: No VTE Prior VTE?: No VTE Risk Level:: Medical - moderate - high VTE Device Contraindication: Treatment Not Indicated VTE Drug Contraindication: N/A - Med Ordered
[2024-10-30 11:59] VITALS: BP 138/63; PULSE 77; RESP 16; TEMP 37.2; O2SAT 99
[2024-10-30] MEDS: Potassium Chloride Packet 20 MEQ PACKET 40 MEQ PO (12:06)
[2024-10-30] MEDS: ondansetron HCL 4 MG/2 ML VIAL IVPUSH (12:07)
[2024-10-30 12:16] LABS: Alanine Aminotransferase 15 U/L (0-31); Albumin Level 2.6 g/dL (3.5-5.0); Alkaline Phosphatase 85 U/L (39-117); Aspartate Amino Transferase 24 U/L (5-31); Bilirubin Direct 0.2 mg/dL (0.0-0.5); Bilirubin Total 0.5 mg/dL (0.0-1.0); Total Protein 5.2 g/dL (6.5-8.0)
[2024-10-30] MEDS: LORazepam 0.5 MG TABLET PO (13:52)
[2024-10-30 14:04] LABS: Iron 24 mcg/dL (30-160); Lipase 14 U/L (8-78); Percent Iron Saturation 14 % (15-50); Total Iron Binding Capacity 168 mcg/dL (228-428); Unsaturated Iron Binding 144 ug/dL
[2024-10-30 14:20] LABS: Ferritin 431 ng/mL (10-250)
--- NOTE | 2024-10-30 14:56 | PM.PNCARD ---
Subjective Subjective Date of Service: 10/30/24 Principal diagnosis: Atrial fibrillation, sepsis Interval history: Patient this morning had some belly pain and nausea and vomiting. 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 No significant fast heart rate or arrhythmias or SVT or atrial fibrillation. Overall blood pressures improved. Review of Systems Constitutional: Reports weakness Cardiovascular: Reports no additional cardiovascular complaints Gastrointestinal: Reports abdominal pain and Reports vomiting Musculoskeletal: Reports no additional musculoskeletal complaints Reports system reviewed and no additional complaints, except as documented and Reports weakness Physical Exam Vital Signs: Last Vital Signs Temp 98.9 F 10/30/24 11:59 Pulse 77 10/30/24 11:59 Resp 16 10/30/24 11:59 BP 138/63 10/30/24 11:59 Pulse Ox 99 10/30/24 11:59 O2 Del Method Room Air 10/30/24 11:59 O2 Flow Rate 1 10/30/24 07:39 Oxygen Flow Rate 2 10/26/24 17:48 BMI result Body Mass Index 23.5 Const General: cooperative, comfortable, no acute distress, alert and awake Nutritional Appearance: thin Orientation/consciousness: patient oriented x3 Limitations: no limitations HEENT Head: Yes normocephalic and Yes atraumatic Neck Neck: Yes trachea midline, Yes supple and Yes no JVD Resp Effort & Inspection: normal respiratory effort Auscultation: clear to auscultation bilaterally, crackles and diminished lung sounds Cardio Jugular venous distension: no JVD Rate: regular rate Rhythm: abnormal rhythm with ectopic beats Heart sounds: S1 normal heart sound present, S2 normal heart sound present, no click, no gallops, no murmurs and no rubs GI Auscultation: normal bowel sounds Skin General skin exam: no rashes or lesions noted Neuro General: patient oriented x3 and no focal motor deficits Extrem General: Yes no clubbing, cyanosis or edema Psych Appearance: grossly normal Affect: Anxious affect present Objective Labs and Meds 10/30/24 10:00 10/30/24 10:00 Lab results: Laboratory Results - last 24 hr 10/30/24 10:00 WBC 18.4 H RBC 2.56 L Hgb 8.8 L Hct 26.6 L MCV 103.9 H MCH 34.4 H MCHC 33.1 RDW 15.9 Plt Count 410 H MPV 11.0 Immature Gran % (Auto) 1.3 H Neut % (Auto) 93.1 H Lymph % (Auto) 2.0 L [place] % (Auto) 2.5 Eos % (Auto) 0.8 Baso % (Auto) 0.3 Lymph # (Auto) 0.4 L [place] # (Auto) 0.5 Eos # (Auto) 0.2 Baso # (Auto) 0.1 Abs Immat Gran (auto) 0.24 H Absolute Neuts (auto) 17.1 H Absolute Nucleated RBC 0.000 Nucleated RBC % (auto) 0.0 Smear Tech's Comments VERIFIED Sodium 141 Potassium 3.5 Chloride 107 Carbon Dioxide 26 Anion Gap 12 BUN 10 Creatinine 0.91 Estim Creat Clear Calc 49.6 Estimated GFR > 60 Random Glucose 193 H Calcium 8.1 L Magnesium 2.0 Iron 24 L TIBC 168 L % Saturation 14 L Unsat Iron Binding 144 Ferritin 431 H Total Bilirubin 0.5 Direct Bilirubin 0.2 AST 24 ALT 15 Alkaline Phosphatase 85 Total Protein 5.2 L Albumin 2.6 L Lipase 14 Progress Note: A&P Assessment and plan (1) SVT (supraventricular tachycardia): Status: Acute Assessment and Plan: Supraventricular tachycardia as well as other arrhythmias possible AFib with frequent PACs. This morning noted to have episode of bradycardia which is suggestive of Wenckebach phenomena on probably vagal phenomenon from her vomiting. However will cut back on the metoprolol dose. Continue Multaq therapy. Continue full disclosure cardiac monitoring. Continue supportive care Will sign of the case and follow up as outpatient. Thank you for allowing me to partake in her care Time Spent With Patient Time: Total time managing care of this patient today ____ minutes. Progress Note: Quality Stroke Does the patient have a stroke diagnosis?: No Procedures Date of Service Date of Service: 10/30/24
--- NOTE | 2024-10-30 14:57 | PC.NURSE ---
At 1420 Pt had a quick episode of Wernicke's block, but quickly converted back to SR; The Wernicke's block rhythm was confirmed with Dr. Arriola; HAPRAL James was made aware of the rhythm; Pt asymptomatic, no chest pain or dizziness reported at that time; Pt back to SR and to be monitored;
--- NOTE | 2024-10-30 15:08 | PC.NURSE ---
At 1420 Pt had a quick episode of Wenckebach phenomenon, but quickly converted back to SR; The Wenckebach phenomenon was confirmed with Dr. Arriola; HARPAL James was made aware of the rhythm; Pt asymptomatic, no chest pain or dizziness reported at that time; Pt back to SR and to be monitored;
[2024-10-30 15:38] VITALS: BP 109/54; PULSE 85; RESP 16; TEMP 36.8; O2SAT 99
[2024-10-30] MEDS: Mesalamine 250 MG CAPSULE.ER 1000 MG PO ×2 (16:22→20:32)
[2024-10-30 19:20] VITALS: BP 124/70; PULSE 86; RESP 20; TEMP 36.9; O2SAT 98
[2024-10-30 23:49] VITALS: BP 129/60; PULSE 84; RESP 16; TEMP 36.8; O2SAT 94
[2024-10-31] VITALS (9 sets, daily range): BP systolic 111–133; BP diastolic 56–82; PULSE 62–94; RESP 17–18; TEMP 36.2–37.4; O2SAT 94–99
[2024-10-31] MEDS: cefEPime HCl 2 GM in 0.9 % Sodium Chloride 50 ML IV (01:33)
[2024-10-31] MEDS: 0.9 % Sodium Chloride Flush 3 ML SYRINGE IVFLUSH ×4 (01:34→21:08)
[2024-10-31] MEDS: Omeprazole 20 MG CAPSULE.DR PO (05:56)
[2024-10-31 06:44] LABS: MANUAL DIFF FLAG NO
[2024-10-31 07:05] LABS: Basophils Percent Auto 0.1 % (0-2); Eosinophils Absolute Auto 0.2 X10*3/uL (0.0-0.4); Eosinophils Percent Auto 1.6 % (0-4); Hemoglobin 7.8 g/dl (12.0-16.0); Imm Gran Abs Auto 0.21 X10*3/uL (0.00-0.03); Imm Gran Pct Auto 1.6 % (0.0-0.4); Lymphocytes Absolute Auto 0.4 X10*3/uL (1.2-4.9); Lymphocytes Percent Auto 3.3 % (20-40); Mean Corpuscular HGB Conc 33.9 g/dl (31.0-35.0); Mean Corpuscular Hemoglobin 34.4 pg (27.0-33.0); Mean Corpuscular Volume 101.3 fL (80.0-98.0); Mean Platelet Volume 10.4 fL (9.4-12.3); Monocytes Absolute Auto 0.7 X10*3/uL (0.1-1.2); Monocytes Percent Auto 5.1 % (2-11); Neutrophils Absolute Auto 11.8 x10*3/uL (2.0-8.3); Neutrophils Percent Auto 88.3 % (45-73); Platelet Count 410 X10*3/uL (160-400); Red Blood Count 2.27 X10*6/uL (4.20-5.50); Red Cell Distribution Width 15.7 % (11.0-16.0); White Blood Count 13.3 X10*3/uL (4.8-10.8)
[2024-10-31] MEDS: Mesalamine 250 MG CAPSULE.ER 1000 MG PO ×4 (10:25→21:03)
[2024-10-31] MEDS: Apixaban 5 MG TABLET PO ×2 (10:25→21:04)
[2024-10-31] MEDS: Famotidine/PF 20 MG/2 ML VIAL IVPUSH (10:25)
[2024-10-31] MEDS: traMADoL HCL 50 MG TABLET PO (10:26)
[2024-10-31] MEDS: Dronedarone HCl 400 MG TABLET PO ×2 (10:26→21:03)
[2024-10-31] MEDS: Metoprolol Tartrate 12.5 MG HALFTAB PO ×2 (10:26→21:03)
[2024-10-31] MEDS: Pyridoxine HCl (Vitamin B6) 50 MG TABLET 100 MG PO (10:26)
[2024-10-31] MEDS: azaTHIOprine 50 MG TABLET 100 MG PO (10:26)
[2024-10-31] MEDS: Cholecalciferol (Vitamin D3) 25 MCG TABLET 50 MCG PO (10:26)
[2024-10-31] MEDS: busPIRone HCl 10 MG TABLET PO (10:26)
--- NOTE | 2024-10-31 11:37 | MHC.CM.PN ---
EMR reviewed and per MD rounds, pt is not medically cleared for discharge due to management of UTI, sepsis, hematuria, anemia, blood transfusion pending today.
--- NOTE | 2024-10-31 11:55 | PC.NURSE ---
Addendum entered by Maribel Benoit RN 11/01/24 09:35: TAR never transfused or registered the scanning of the blood on the [employer] system , possibly had to do with the reboot. Siobhan Adler RN windows security analyst assisted with documented via the TAR and was able to scan Pt ID and BB ID bands but not able to scan blood as this was done yesterday. Original Note: At 11:30 took VS WNL. Verified with another RN. started blood. When second RN went to [employer], computer system, froze, turned off and rebooted. Unable to log in for a few minutes. Once able to log in blood flagging as being hung late and not within the 15minutes when that was not the case. Blood given within the first 5 minutes of receiving and verifying. application chemist aware. Blood bank notified and advised to continue transfusion. VS after 15 minute WNL.
--- NOTE | 2024-10-31 12:13 | HO.PM.IMPN ---
Subjective Subjective Date of Service: 10/31/24 Interval History: Follow-up for sepsis, UTI, NSVT Reporting mid abdominal pain still has some dizziness Review of Systems Review of Systems: Yes all other systems are reviewed and are negative Constitutional Constitutional: Denies chills and Denies fever(s) Cardiovascular Cardiovascular: Denies chest pain and Denies palpitations Endocrine Endocrine: Denies palpitations Physical Exam Vital Signs: Vital Signs: Last Vital Signs Temp 98.5 F 10/31/24 12:00 Pulse 68 10/31/24 12:00 Resp 18 10/31/24 12:00 BP 111/57 L 10/31/24 12:00 Pulse Ox 98 10/31/24 12:00 O2 Del Method Nasal Cannula 10/31/24 12:00 O2 Flow Rate 1 10/31/24 12:00 Oxygen Flow Rate 2 10/26/24 17:48 BMI result Body Mass Index 23.5 Appearing in no acute distress lung sounds are clear to auscultation heart regular rate rhythm, clear S1, S2 positive bowel sounds, abdomen is soft, nontender neuro patient is alert x3, no focal deficits Objective Data Active Medications Acetaminophen (Acetaminophen 325 Mg Tablet) 975 mg PO Q6H PRN PRN Reason: Pain, Mild 1-3,fever,headache Last Admin: 10/30/24 01:15 Dose: 975 mg Documented By: ELVA Albuterol Sulfate (Albuterol Sulfate 90 Mcg 8 Gm Inhaler) 1 puff INHALE QID PRN PRN Reason: Shortness Of Breath Apixaban (Apixaban 5 Mg Tablet) 5 mg PO BID [facility] Last Admin: 10/31/24 10:25 Dose: 5 mg Documented By: ROSSY Azathioprine (Azathioprine 50 Mg Tablet) 100 mg PO DAILY [facility] Last Admin: 10/31/24 10:26 Dose: 100 mg Documented By: ROSSY Buspirone HCl (Buspirone Hcl 10 Mg Tablet) 10 mg PO DAILY [facility] Last Admin: 10/31/24 10:26 Dose: 10 mg Documented By: ROSSY Calcium Carbonate (Calcium Carbonate 750 Mg Tab.Chew) 750 mg PO Q4H PRN PRN Reason: Heartburn Dicyclomine HCl (Dicyclomine Hcl 10 Mg Capsule) 20 mg PO QID PRN PRN Reason: abdominal cramping or discomfort Last Admin: 10/29/24 14:55 Dose: 20 mg Documented By: SABRINA Dronedarone (Dronedarone Hcl 400 Mg Tablet) 400 mg PO BID [facility] Last Admin: 10/31/24 10:26 Dose: 400 mg Documented By: ROSSY Famotidine (Famotidine/Pf 20 Mg/2 Ml Vial) 20 mg IVPUSH DAILY [facility] Last Admin: 10/31/24 10:25 Dose: 20 mg Documented By: ROSSY Cefepime HCl (Maxipime) 2 gm in 50 mls @ 100 mls/hr IV Q8H [facility] Magnesium Hydroxide (Milk Of Magnesia 30 Ml Oral.Susp) 30 ml PO DAILY PRN PRN Reason: Constipation Melatonin (Melatonin 3 Mg Tablet) 6 mg PO BEDTIME PRN PRN Reason: Insomnia Last Admin: 10/27/24 21:56 Dose: 6 mg Documented By: ANTOINC Mesalamine (Mesalamine 250 Mg Capsule.Er) 1,000 mg PO QID [facility] Last Admin: 10/31/24 10:25 Dose: 1,000 mg Documented By: ROSSY Metoprolol Tartrate (Metoprolol Tartrate 12.5 Mg Halftab) 12.5 mg PO Q12H [facility]; Protocol Last Admin: 10/31/24 10:26 Dose: 12.5 mg Documented By: ROSSY Omeprazole (Omeprazole 20 Mg Capsule.Dr) 20 mg PO DAILY@0630 [facility] Last Admin: 10/31/24 05:56 Dose: 20 mg Documented By: ELVA Oxycodone HCl (Oxycodone Hcl Immed Release 5 Mg Tablet) 5 mg PO Q6H PRN PRN Reason: Pain, Severe (Pain Scale 7-10) Last Admin: 10/28/24 17:46 Dose: 5 mg Documented By: KATE Pyridoxine HCl (Pyridoxine Hcl (Vitamin B6) 50 Mg Tablet) 100 mg PO DAILY [facility] Last Admin: 10/31/24 10:26 Dose: 100 mg Documented By: ROSSY Sodium Chloride (0.9 % Sodium Chloride Flush 3 Ml Syringe) 3 ml IVFLUSH QSHIFT [facility] Last Admin: 10/31/24 10:30 Dose: 3 ml Documented By: ROSSY Tramadol HCl (Tramadol Hcl 50 Mg Tablet) 50 mg PO DAILY [facility] Last Admin: 10/31/24 10:26 Dose: 50 mg Documented By: ROSSY Trazodone HCl (Trazodone Hcl 25 Mg Halftab) 25 mg PO BEDTIME MRX1 PRN PRN Reason: Insomnia Last Admin: 10/28/24 23:39 Dose: 25 mg Documented By: ANTOINNoel Vitamin D (Cholecalciferol (Vitamin D3) 25 Mcg Tablet) 50 mcg PO DAILY [facility] Last Admin: 10/31/24 10:26 Dose: 50 mcg Documented By: ROSSY Labs 10/31/24 06:29 10/30/24 10:00 Labs: Laboratory Results - last 24 hr 10/30/24 10/31/24 10/31/24 10:00 06:29 09:34 MCV 101.3 H MCH 34.4 H MCHC 33.9 RDW 15.7 Plt Count 410 H MPV 10.4 Immature Gran % (Auto) 1.6 H Neut % (Auto) 88.3 H Lymph % (Auto) 3.3 L [place] % (Auto) 5.1 Eos % (Auto) 1.6 Baso % (Auto) 0.1 Lymph # (Auto) 0.4 L [place] # (Auto) 0.7 Eos # (Auto) 0.2 Baso # (Auto) 0.0 Abs Immat Gran (auto) 0.21 H Absolute Neuts (auto) 11.8 H Absolute Nucleated RBC 0.000 Nucleated RBC % (auto) 0.0 Iron 24 L TIBC 168 L % Saturation 14 L Unsat Iron Binding 144 Ferritin 431 H Total Bilirubin 0.5 Direct Bilirubin 0.2 AST 24 ALT 15 Alkaline Phosphatase 85 Total Protein 5.2 L Albumin 2.6 L Lipase 14 Blood Type O Positive Antibody Screen NEGATIVE Crossmatch See Detail Assessment and Plan (1) SVT (supraventricular tachycardia): Status: Acute (2) Bacteremia: Status: Acute (3) Sepsis: Status: Acute (4) Cardiac arrhythmia: Status: Acute Plan 69F PMH crohns, nephrolithiasis, presented with weakness found to have sepsis and bacteremia due to pyelonephritis hospital course complicated by SVT requiring adenosine Acute on chronic anemia h/o b12 deficiency, iron HH down to 7.8/23.0 PRBC x1 GI consult stool occult diarrhea worse than usual stool studies and cdiff Abdominal pain. Resolved IV pepcid abdominal US. 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 possible that prior episodes had no atrial fibrillation and were svt continue eliquis, Multaq; low dose metoprolol resumed as above Cardiology following echo with preserved ejection fraction, impaired relaxation, no valvular abnormalities pleural effusions cxr with small b/l effusions likely due to IVF s/p fluid if bp remains stable will trial low dose lasix hematuria, mild Due to ureteral stent resolved; H/H stable faustin removed hypokalemia/hypomagnesemia Improved with replacement Acute kidney injury, Due to above, resolved with IVF Crohn's on imuran Stable DVT prophylaxis with eliquis Full Code reason for continued hospitalization: sepsis, hematuria, anemia, persistent arrhythmia, low blood pressure Quality Stroke Does the patient have a stroke diagnosis?: No VTE Prior VTE?: No VTE Risk Level:: Medical - moderate - high VTE Device Contraindication: Treatment Not Indicated VTE Drug Contraindication: N/A - Med Ordered
[2024-10-31] MEDS: cefEPime HCl/D5W 2 GM/50 ML PIGGYBACK IV ×2 (12:47→19:57)
[2024-10-31] MEDS: Acetaminophen 325 MG TABLET 975 MG PO ×2 (14:12→21:04)
--- NOTE | 2024-10-31 18:14 | PM.EVENT ---
Event Note Date of Service: 10/31/24 Event Note: GI Consult-Full note dictated. History from patient, , sister, and EMR. Imp: 69 yo female with underlying Crohn's disease that was stable on her outpatient medical regimen who was admitted 1 week ago with kidney stones, urosepsis, and new Afib for which she was started on new meds, including Eliquis. She had a negative upper endo and colonoscopy with ms in 09/2023. She has developed a progressive anemia but without any signs of bleeding, a new diarrhea since admission, nausea, and anorexia. I suspect the anemia is related to her sepsis and systemic illness as opposed to significant GI blood loss given no reported history of obvious GI bleeding and the negative GI procedures 1 year ago. The diarrhea is probably in relation to her antibiotics as opposed to active Crohn's. Her nausea and anorexia are probably related to the systemic illness as well. Rec: Anemia: Agree with transfusion as needed and observation. Given her negative GI procedures 1 year ago and no overt GI bleeding, I don't think she needs an upper endo or colonoscopy at this time. Continue PPI and F/U CBC. Diarrhea: Agree with checking stool specimens including C.diff, I added some dietary restrictions, I added cholestyramine(she had been using that at home).. Nausea, anorexia: Added phenergan(Zofran had a severe drug interaction with Multaq warning), continue PPI, observe. D/W patient and her family in detail. They are comfortable with this plan. Thanks. Time Spent With Patient Time: Total time managing care of this patient today ____ minutes.
[2024-10-31 18:28] LABS: OBS Int Ctl Valid YES; OBS1 NEGATIVE (NEGATIVE)
[2024-10-31 19:11] LABS: CDiff Gene PCR NEGATIVE (Negative)
[2024-10-31 20:55] LABS: Folate 8.3 ng/mL (> or = 4.0); Vitamin B12 > 2000 pg/mL (200-900)
[2024-11-01] MEDS: cefEPime HCl/D5W 2 GM/50 ML PIGGYBACK IV ×2 (03:54→10:21)
[2024-11-01 04:00] VITALS: BP 152/70; PULSE 84; RESP 17; TEMP 36.7; O2SAT 97
--- NOTE | 2024-11-01 04:16 | CONS_ITS ---
DATE OF SERVICE: 10/31/2024 REASON FOR CONSULTATION: History of Crohn disease with associated anemia and diarrhea. HISTORY OF PRESENT ILLNESS: The patient is a 69-year-old female well known to me with underlying Crohn disease. She is accompanied by her and sister in her room at the time of the interview. I just saw the patient recently in the office, at which time her Crohn disease was quite stable on a regimen of azathioprine, Pentasa, and some cholestyramine. She had an upper endoscopy and colonoscopy 1 year ago in September of 2023, which was negative for any sign of active Crohn disease. The upper endoscopy was negative other than a small hiatal hernia. There was no sign of any active Crohn disease in the small bowel, at her anastomosis from previous surgery, or in the colon. She was admitted here about 1 week ago with the diagnosis of urosepsis with positive blood cultures and an obstructing stone in the kidney that required emergency ureteral stent placement. She also developed rapid atrial fibrillation and is now on Eliquis and cardiac medication. Over the past week since admission, she has developed some drop in hemoglobin to a level as low as 7.8 today compared to 12.5 on admission. However, there has been no sign of any obvious bleeding such as melena, hematochezia, hematemesis, nor coffee-ground emesis. A stool specimen was Hemoccult negative this evening. The patient has not been on any blood thinners nor chronic NSAIDs at home prior to this admission. In addition to her anemia, she has developed diarrhea since admission. Again, the Crohn disease had been stable at home on the regimen of the azathioprine, Pentasa, and cholestyramine. Here in the hospital, she has been having some frequent loose stools over the past few days. Stool specimens are pending for C diff and GI panel. Again, there has been no sign of GI bleeding here in the hospital. She has also been having some nausea and anorexia since admission, but without recent vomiting. She has not been receiving any antiemetics. She is on a PPI. MEDICATIONS: Include albuterol inhaler p.r.n., acetaminophen p.r.n., Eliquis, azathioprine 100 mg daily, BuSpar, IV cefepime, vitamin D, dicyclomine p.r.n., Multaq, IV Pepcid, melatonin p.r.n., mesalamine 1000 mg q.i.d., metoprolol, omeprazole 20 mg p.o. daily, oxycodone p.r.n., tramadol, trazodone p.r.n., and vitamin B6. PAST MEDICAL HISTORY: Crohn disease with surgery with right ileocolectomy in approximately 1989. Most recent colonoscopy from September of 2023 did not reveal any sign of Crohn disease in the small bowel, anastomosis, nor colon. She does have anxiety. Kidney stones. Gastroesophageal reflux. She had an upper endoscopy in September of 2023, which was negative for any esophagitis nor ulcer disease. History of sciatica. Crohn disease surgery as above. Benign breast biopsy, tubal ligation, skin cancer with basal cell carcinoma, laparoscopic cholecystectomy, hysteroscopy and D and C, wrist ganglion. SOCIAL HISTORY: She does smoke. She is . FAMILY HISTORY: Negative for GI malignancy. REVIEW OF SYSTEMS: CONSTITUTIONAL: She has been feeling poorly for several days before this hospitalization with weakness and belly pain. CARDIAC: No chest pain, although she did have rapid atrial fibrillation. PULMONARY: No coughing or hemoptysis. GI: As above. URINARY: She has had dysuria. PHYSICAL EXAMINATION: GENERAL: The patient is a tired-appearing female in no distress. SKIN: Warm and dry. She does appear pale. HEENT: Anicteric sclerae. Moist mucous membranes. CARDIAC: Normal S1, S2. ABDOMEN: Soft, nondistended, nontender without palpable mass. LABORATORY DATA: As above. She had an iron of 24 with iron saturation of 14% and a ferritin of 431. LFTs are normal. Lipase was 14. Stool was Hemoccult negative. Stool for C diff and GI panel are pending. Her CT scan did not show any sign of GI pathology on October 24, such as obvious active colitis or bowel obstruction. IMPRESSION: In regard to the patient's anemia, this does not appear to be related to any significant active GI process and there does not appear to be any active GI bleeding. Given the finding of heme negative stool today, negative upper endoscopy and colonoscopy 1 year ago, and her clinical history of not seeing any bleeding as well, I suspect the progressive anemia is most likely in relation to her associated sepsis and overall illness. Therefore, I would not recommend any type of GI endoscopy or colonoscopy at this time. I would agree with transfusions and observation as you are doing. I would continue her PPI and follow up CBCs. If anemia continues to be a problem, she may need Hematology consultation. In regard to the diarrhea, I would agree with checking stool specimens including C diff as this may very well be antibiotic related. I did add some dietary restrictions such as lactose free and low fat. I do not think her Crohn disease regimen needs to be adjusted nor have anything added such as steroids. In regard to the nausea and anorexia, I did add Phenergan as an antiemetic since Zofran comes up as a severe drug interaction with Multaq. I will continue her PPI and observation in that regard. PLAN: At this point, I will follow the patient while she is here in the hospital with you, but please call me if anything acute happen such as GI bleeding or any obvious signs of a flare of the Crohn disease. This has all been discussed with the patient and her family in detail. They are comfortable with the plan. Thank you for the consultation. MD RICK Harley/DM / [phone]
[2024-11-01] MEDS: Omeprazole 20 MG CAPSULE.DR PO (05:55)
[2024-11-01] MEDS: Promethazine HCL 25 MG TABLET PO (05:55)
[2024-11-01 06:41] LABS: Hematocrit 27.5 % (37.0-47.0); Hemoglobin 9.5 g/dl (12.0-16.0); Mean Corpuscular HGB Conc 34.5 g/dl (31.0-35.0); Mean Corpuscular Hemoglobin 33.9 pg (27.0-33.0); Mean Corpuscular Volume 98.2 fL (80.0-98.0); Mean Platelet Volume 10.1 fL (9.4-12.3); Platelet Count 473 X10*3/uL (160-400); Red Cell Distribution Width 18.1 % (11.0-16.0); White Blood Count 13.9 X10*3/uL (4.8-10.8)
[2024-11-01 06:57] LABS: Anion Gap 10 (12-20); Blood Urea Nitrogen 11 mg/dL (9-16); Calcium 8.1 mg/dL (8.4-10.2); Carbon Dioxide 25 mmol/L (22-29); Chloride 107 mmol/L (96-108); Creatinine Clr Calc Pharmacy 55.8; Estimated Glomerular Filt Rate > 60; Glucose Random 106 mg/dL (60-115); Potassium 3.1 mmol/L (3.3-5.1); Sodium 139 mmol/L (135-145)
[2024-11-01 07:32] VITALS: BP 148/67; PULSE 74; RESP 12; TEMP 37.1; O2SAT 96
[2024-11-01 09:39] VITALS: PULSE 100
[2024-11-01] MEDS: Cholestyramine (With Sugar) 4 GM POWD.PACK 2 GM PO (10:18)
[2024-11-01] MEDS: Metoprolol Tartrate 12.5 MG HALFTAB PO (10:19)
[2024-11-01] MEDS: Pyridoxine HCl (Vitamin B6) 50 MG TABLET 100 MG PO (10:19)
[2024-11-01] MEDS: Apixaban 5 MG TABLET PO (10:19)
[2024-11-01] MEDS: Mesalamine 250 MG CAPSULE.ER 1000 MG PO (10:19)
[2024-11-01] MEDS: azaTHIOprine 50 MG TABLET 100 MG PO (10:20)
[2024-11-01] MEDS: Potassium Chloride ER 20 MEQ TAB.ER.PRT 40 MEQ PO (10:20)
[2024-11-01] MEDS: busPIRone HCl 10 MG TABLET PO (10:20)
[2024-11-01] MEDS: Dronedarone HCl 400 MG TABLET PO (10:20)
[2024-11-01] MEDS: traMADoL HCL 50 MG TABLET PO (10:20)
[2024-11-01] MEDS: Cholecalciferol (Vitamin D3) 25 MCG TABLET 50 MCG PO (10:20)
[2024-11-01] MEDS: Famotidine/PF 20 MG/2 ML VIAL IVPUSH (10:21)
--- NOTE | 2024-11-01 10:34 | PM.DS ---
DS: Providers Provider Date of Service: 11/01/24 Date of admission: 10/24/24 18:20 Date of discharge: 11/01/24 Primary care physician: Tae Duarte MD Consults: 10/24/24 18:19 Consult to Urology Routine Consulting Provider: [facility] Reason for consultation: pyelo, ?obstructing stone 10/25/24 08:16 Consult to Cardiology Routine Consulting Provider: [facility] Reason for consultation: new afib 10/31/24 09:03 Consult to Gastroenterology Routine Consulting Provider: Neymar Sauer Reason for consultation: Anemia DS: Diagnosis Discharge Diagnosis (1) SVT (supraventricular tachycardia): Status: Acute (2) Bacteremia: Status: Acute (3) Sepsis: Status: Acute (4) Cardiac arrhythmia: Status: Acute DS: Summary Hospital Course Hospital Course: History and physical as per admitting provider. 69F PMH crohns, nephrolithiasis, presented with weakness. Patient states she has been feeling unwell for the past 5 days. Reports dysuria, chills, left flank pain. Has history of nephrolithiasis on the left side. Has not taken anything at home. Finally decided to come to the ED and she felt so weak and could not ambulate. In ED found to be septic with fever, tachycardia, positive UA, acute kidney injury, CT abdomen with left kidney mildly enlarged and mild pelviectasis consistent with recently passed stone versus pyelonephritis. 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 Seen by GI, no further workup needed Diarrhea, worse than usual but improving, stool studies and cdiff Abdominal pain. Resolved, treated with IV pepcid, abdominal US. Negative,, LFts wnl New onset afib with rvr, rate controlled ? possible that prior episodes had no atrial fibrillation and were svt. continue eliquis, Multaq and metoprolol; low dose metoprolol Seen by cardiology, echo with preserved ejection fraction, impaired relaxation, no valvular abnormalities Pleural effusions, cxr with small b/l effusions, likely due to IVF, s/p fluid, if bp remains stable will trial low dose lasix Hematuria, mild, Due to ureteral stent, resolved; H/H stable, faustin removed Hypokalemia/hypomagnesemia , Improved with replacement. will send with 5 doses of potassium 20 meq Acute kidney injury, , Due to above, resolved with IVF Crohn's on azathioprine, imuran Time Attestation Discharge Coordination Time (in mins): 45 Quality: Safe Use of Opioids Does Pt have an Active Cancer Diagnosis on the Problem List?: No Quality: Stroke Does the patient have a stroke diagnosis?: No Physical Exam Vital Signs: Vital Signs: Last Vital Signs Temp 98.7 F 11/01/24 07:32 Pulse 100 11/01/24 09:39 Resp 12 11/01/24 07:32 BP 148/67 H 11/01/24 07:32 Pulse Ox 96 11/01/24 07:32 O2 Del Method Room Air 11/01/24 07:32 O2 Flow Rate 1 10/31/24 16:00 Oxygen Flow Rate 2 10/26/24 17:48 BMI result Body Mass Index 23.5 Appearing in no acute distress head is normocephalic atraumatic eyes pupils are PERRLA sclera is anicteric mouth throat mucous membranes are intact and moist neck is supple no lymphadenopathy, no JVD noted lung sounds are clear to auscultation heart regular rate rhythm, clear S1, S2 positive bowel sounds, abdomen is soft, nontender neuro patient is alert x3, no focal deficits DS: Data Data Completed and Pending Labs on day of discharge: Laboratory Results - last 24 hr 10/31/24 10/31/24 10/31/24 09:34 18:02 19:44 WBC RBC Hgb Hct MCV MCH MCHC RDW Plt Count MPV Absolute Nucleated RBC Nucleated RBC % (auto) Sodium Potassium Chloride Carbon Dioxide Anion Gap BUN Creatinine Estim Creat Clear Calc Estimated GFR Random Glucose Calcium Vitamin B12 > 2000 H Folate 8.3 Stool Occult Blood NEGATIVE C. difficile Tox B Gene NEGATIVE Blood Type O Positive Antibody Screen NEGATIVE Crossmatch See Detail 11/01/24 06:27 WBC 13.9 H RBC 2.80 L D Hgb 9.5 L D Hct 27.5 L MCV 98.2 H MCH 33.9 H MCHC 34.5 RDW 18.1 H Plt Count 473 H MPV 10.1 Absolute Nucleated RBC 0.000 Nucleated RBC % (auto) 0.0 Sodium 139 Potassium 3.1 L Chloride 107 Carbon Dioxide 25 Anion Gap 10 L BUN 11 Creatinine 0.81 Estim Creat Clear Calc 55.8 Estimated GFR > 60 Random Glucose 106 Calcium 8.1 L Vitamin B12 Folate Stool Occult Blood C. difficile Tox B Gene Blood Type Antibody Screen Crossmatch Discharge Plan Discharge Anticipated Discharge Date/Time: 11/01/24 10:15 Patient Disposition: Home Health Service Discharge Diagnosis: Acute on chronic anemia Diarrhea Abdominal pain Sepsis Acute pyelonephritis Left ureteral stone Klebsiella bacteremia Supraventricular tachycardia New onset atrial fibrillation with rapid ventricular response Pleural effusions Hematuria Hypokalemia/hypomagnesemia Acute kidney injury Referrals: Po,Tae Méndez MD [Primary Care Provider] - 1 Week Discharge Medications: New Eliquis 5 mg Tablet 5 mg PO BID Qty: 60 0RF Multaq 400 mg Tablet 400 mg PO BID Qty: 60 0RF metoprolol tartrate 25 mg tablet 25 mg PO Q12H Qty: 30 0RF Rx Instructions: Take 12.5 mg Twice daily Pentasa 250 mg Capsule, Extended Release 1,000 mg PO QID Qty: 240 0RF cholestyramine (with sugar) 4 gram Powder In Packet 0.5 ea PO DAILY Qty: 60 0RF potassium chloride 20 mEq tablet extended release 20 meq PO DAILY Qty: 5 0RF Continued raloxifene 60 mg tablet 60 mg PO DAILY Qty: 90 2RF pyridoxine (vitamin B6) 100 mg tablet 100 mg PO DAILY Qty: 90 3RF cyanocobalamin (vitamin B-12) 1,000 mcg/mL solution 1,000 mcg IM Q4W 90 Days Qty: 4 5RF buspirone 10 mg tablet 10 mg PO DAILY Qty: 90 2RF albuterol sulfate 90 mcg/actuation HFA aerosol inhaler 1 inh inhalation QID PRN (Reason: Shortness Of Breath) betamethasone dipropionate 0.05 % cream 1 appl topical DAILY PRN (Reason: Dry Skin) omeprazole 20 mg capsule,delayed release(DR/EC) 20 mg PO DAILY@0630 azathioprine 50 mg tablet 100 mg PO DAILY dicyclomine 10 mg capsule 20 mg PO QID PRN (Reason: abdominal cramping or discomfort) cholecalciferol (vitamin D3) 50 mcg (2,000 unit) capsule 50 mcg PO DAILY 90 Days Qty: 90 3RF tramadol 50 mg tablet 50 mg PO DAILY 90 Days Qty: 90 0RF Discontinued cholestyramine (with sugar) 4 gram powder 1 ea PO BID tramadol 50 mg tablet 50 mg PO DAILY 90 Days Qty: 90 0RF Discharge Orders: Discharge Order (Routine); Ordered 11/01/24 Ordered By: Dilcia Frye Diet: Advance to usual diet Activity on Discharge: As tolerated Stand Alone Forms: Patient Portal Discharge page Print Language: Malian Care Plan Goals: You have been started on several new medications: Multaq, metoprolol and Eliquis for new onset atrial fibrillation Your dose of Questran has changed to 2 g daily Health Concerns: Acute on chronic anemia Diarrhea Abdominal pain Sepsis Acute pyelonephritis Left ureteral stone Klebsiella bacteremia Supraventricular tachycardia New onset atrial fibrillation with rapid ventricular response Pleural effusions Hematuria Hypokalemia/hypomagnesemia Acute kidney injury Plan of Treatment: Follow up with primary care provider as needed Take all medications as prescribed Assessment: See discharge summary
[2024-11-01] MEDS: 0.9 % Sodium Chloride Flush 3 ML SYRINGE IVFLUSH (10:35)
[2024-11-01 11:38] LABS: Adenovirus F 40/41 Not Detected (Not Detect.); Astrovirus Not Detected (Not Detect.); Campylobacter Not Detected (Not Detect.); Cryptosporidium Not Detected (Not Detect.); Cyclospora cayetanensis Not Detected (Not Detect.); E. coli EAEC Not Detected (Not Detect.); E. coli EPEC Not Detected (Not Detect.); E. coli ETEC Not Detected (Not Detect.); E. coli STEC Not Detected (Not Detect.); Entamoeba histolytica Not Detected (Not Detect.); Giardia lamblia Not Detected (Not Detect.); Norovirus GI/GII Not Detected (Not Detect.); Plesiomonas shigelloides Not Detected (Not Detect.); Rotavirus A Not Detected (Not Detect.); Salmonella Not Detected (Not Detect.); Sapovirus Not Detected (Not Detect.); Shigella sp./EIEC Not Detected (Not Detect.); Vibrio Not Detected (Not Detect.); Vibrio Cholerae Not Detected (Not Detect.); Yersinia enterocolitica Not Detected (Not Detect.)
--- NOTE | 2024-11-01 12:03 | MHC.CM.PN ---
Second IMM given 11/01. Pt is medically cleared for discharge home self-care, her will transport her home today. PT had recommended home PT and pt declines VNA services, hospitalist updated.
--- NOTE | 2024-11-01 17:02 | P.CDIM_ITS ---
PROVIDER RESPONSE TEXT: To clarify, the appropriate diagnosis supported by the clinical indicators: Acute lactic acidosis: Resolved QUERY TEXT: PHYSICIAN'S DOCUMENTATION REQUEST Date of Query: 11/01/2024 09:10 AM EDT Patient Name: Vivian Mccollum Admit Date: 10/24/2024 Dear Dilcia Frye MAINTENANCE TECHNICIAN, A review of the medical record indicates additional documentation may be needed. Please review below and update the documentation accordingly. Clinical Indicators: Event note: WBC count and elevated lactic acid. LA 1.8 2.9 H IV fluids Repeat blood cultures Based on the above, is there a diagnosis that correlates with the above findings: Acute lactic acidosis resolved, possible, probable, etc. Labs indicate a diagnosis of (please specify) Other (explain) Clinically unable to determine (explain) Thank you, Kelly Sánchez, CCS, CDIS Use of terms such as suspected, likely, concern for, or probable (associated with a specific diagnosi s that is being evaluated, monitored, or treated as if it exists) are acceptable and can be coded in the inpatient se tting, when documented at the time of discharge. Please use your independent medical judgment in providing your response. THIS QUERY IS PART OF THE PERMANENT MEDICAL RECORD
--- NOTE | 2024-11-01 17:02 | P.CDIM_ITS ---
PROVIDER RESPONSE TEXT: To clarify, the appropriate diagnosis supported by the clinical indicators: Iron deficiency anemia: Definite QUERY TEXT: PHYSICIAN'S DOCUMENTATION REQUEST Date of Query: 11/01/2024 07:56 AM EDT Patient Name: Vivian Mccollum Admit Date: 10/24/2024 Dear Dilcia Frye RACING MECHANIC, A review of the medical record indicates additional documentation may be needed. Please review below and update the documentation accordingly. Clinical Indicators: Progress note 10/31/24 - Acute on chronic anemia. h/o b12 deficiency, Iron H/H down to 7.8/23.0 Transfuse 1 unit PRBC. LABS: Iron 24 L Based on the above, could you clarify which of the following is the most likely type of anemia you ar e evaluating, treating, and/or monitoring? Iron deficiency anemia possible, probable, suspected, cannot rule out Other specified Other (explain) Clinically unable to determine (explain) Thank you, Kelly Sánchez, CCS, CDIS Use of terms such as suspected, likely, concern for, or probable (associated with a specific diagnosi s that is being evaluated, monitored, or treated as if it exists) are acceptable and can be coded in the inpatient se tting, when documented at the time of discharge. Please use your independent medical judgment in providing your response. THIS QUERY IS PART OF THE PERMANENT MEDICAL RECORD
== END 2024-11-01 12:00 | disposition home health service (06) | DRG 854 ==
LOC: HO.ED 18:28 → HO.EDOVER 18:34 → HO.S3 19:32 → HO.EDOVER 19:49 → HO.IMC 10-25 07:35
PROVIDERS: Internal Medicine; Physician Assistant; Physician Assistant Medical; Student in an Organized Health Care Education/Training Program; Urology; Admitting Provider Internal Medicine; Emergency Provider Emergency Medicine; PCP Internal Medicine; Visit Provider Nurse Practitioner Acute Care
PROC: 0T778DZ Dilation of Left Ureter with Intraluminal Device, Via Natural or Artificial Opening Endoscopic (ICD-10-PCS; principal; 2024-10-26 18:30)
DX: A41.9 Sepsis, unspecified organism (principal); E87.21 Acute metabolic acidosis; I47.10 Supraventricular tachycardia, unspecified; K50.10 Crohn's disease of large intestine without complications; N10 Acute pyelonephritis; N17.9 Acute kidney failure, unspecified; N20.1 Calculus of ureter; J90 Pleural effusion, not elsewhere classified; B96.1 Klebsiella pneumoniae [K. pneumoniae] as the cause of diseases classified elsewhere; E87.6 Hypokalemia; R31.9 Hematuria, unspecified; I44.1 Atrioventricular block, second degree; I48.91 Unspecified atrial fibrillation; R19.7 Diarrhea, unspecified; D50.9 Iron deficiency anemia, unspecified; I49.1 Atrial premature depolarization; Z20.822 Contact with and (suspected) exposure to COVID-19; Z79.899 Other long term (current) drug therapy
CPT/HCPCS: 0241U; 36415; 71046; 74176; 76700; 80048; 80053; 80076; 81001; 82272; 82607; 82728; 82746; 82947; 83540; 83605; 83690; 83735; 83880; 84484; 85007; 85025; 85027; 86850; 86900; 86901; 86923; 87040; 87077; 87086; 87088; 87186; 87205; 87493; 87507; 87633; 93005; 93306; 97162; 99285; C1758; C1769; C2617; J0131; J0153; J0330; J0692; J0696; J1100; J1171; J1308; J1885; J2003; J2405; J2704; J3010; J3371; J3475; J3480; J7120; P9016; Q9957; Q9967

== ENCOUNTER → 2024-10-24 12:17 | Outpatient (BNV) | payer MEDICARE, SELFPAY | PROVIDERS: Emergency Provider Emergency Medicine; PCP Internal Medicine; Visit Provider Radiology Diagnostic Radiology | DX: N28.81 Hypertrophy of kidney (principal); J84.10 Pulmonary fibrosis, unspecified | CPT/HCPCS: 71046; 74176 ==

== ENCOUNTER 2024-10-24 18:20 | Outpatient (BNV) | payer MEDICARE, SELFPAY | END 2024-10-25 07:44 | PROVIDERS: Admitting Provider Internal Medicine; Emergency Provider Emergency Medicine; PCP Internal Medicine; Visit Provider Internal Medicine Cardiovascular Disease | DX: I49.1 Atrial premature depolarization (principal); R00.0 Tachycardia, unspecified | CPT/HCPCS: 93010 ==

== ENCOUNTER 2024-10-24 18:20 | Outpatient (BNV) | payer MEDICARE, SELFPAY | END 2024-10-28 13:15 | PROVIDERS: Admitting Provider Internal Medicine; Emergency Provider Emergency Medicine; PCP Internal Medicine; Visit Provider Radiology Diagnostic Radiology | DX: R06.02 Shortness of breath (principal) | CPT/HCPCS: 71046 ==

== ENCOUNTER 2024-10-24 18:20 | Outpatient (BNV) | payer MEDICARE, SELFPAY | END 2024-10-26 07:00 | PROVIDERS: Admitting Provider Internal Medicine; Emergency Provider Emergency Medicine; PCP Internal Medicine; Visit Provider Internal Medicine Cardiovascular Disease | DX: I34.0 Nonrheumatic mitral (valve) insufficiency (principal); I36.1 Nonrheumatic tricuspid (valve) insufficiency; I51.89 Other ill-defined heart diseases | CPT/HCPCS: 93306 ==

== ENCOUNTER 2024-10-24 18:20 | Outpatient (BNV) | payer MEDICARE, SELFPAY | END 2024-10-30 11:33 | PROVIDERS: Admitting Provider Internal Medicine; Emergency Provider Emergency Medicine; PCP Internal Medicine; Visit Provider Radiology Vascular & Interventional Radiology | DX: N20.9 Urinary calculus, unspecified (principal) | CPT/HCPCS: 76700 ==

== ENCOUNTER → 2024-10-24 18:20 | Outpatient (BNV) | payer MEDICARE, SELFPAY | PROVIDERS: Admitting Provider Internal Medicine; Emergency Provider Emergency Medicine; PCP Internal Medicine; Visit Provider Internal Medicine | DX: N39.0 Urinary tract infection, site not specified (principal); A41.9 Sepsis, unspecified organism; I49.9 Cardiac arrhythmia, unspecified | CPT/HCPCS: 99232; 99233; 99499 ==

== ENCOUNTER → 2024-10-24 18:20 | Outpatient (BNV) | payer MEDICARE, SELFPAY | PROVIDERS: Admitting Provider Internal Medicine; Emergency Provider Emergency Medicine; PCP Internal Medicine; Visit Provider Urology | DX: A41.9 Sepsis, unspecified organism (principal); N20.0 Calculus of kidney | CPT/HCPCS: 52332; 74420; 99222; 99232; 99499 ==

== ENCOUNTER → 2024-10-24 18:20 | Outpatient (BNV) | payer MEDICARE, SELFPAY | PROVIDERS: Admitting Provider Internal Medicine; Emergency Provider Emergency Medicine; PCP Internal Medicine; Visit Provider Internal Medicine Cardiovascular Disease | DX: I48.91 Unspecified atrial fibrillation (principal); R00.0 Tachycardia, unspecified; I49.1 Atrial premature depolarization; I49.3 Ventricular premature depolarization | CPT/HCPCS: 93010; 99222 ==

== ENCOUNTER 2024-11-09 10:01 | Outpatient (AMB) | payer MEDICARE, SELFPAY ==
--- NOTE | 2024-11-09 10:16 | MHC.PC.OV ---
Vital Signs 11/09/24 10:17 Height 5 ft 5 in Weight 134 lb BMI 22.3 BP 136/60 Blood Pressure Location Lt brachial Position Sitting Respiration 18 Pulse 78 Pulse Source Pulse Oximeter Temp 97.5 F Temp Source Temporal Artery Scan Pulse Oximetry (%) 98 Oxygen Delivery Method Room Air Intake Visit Reasons: [facility] 04/09 Sepsis Cooler Man Required: No Infusion Therapy Nurse: Present Accompanied by: Self / Same As Patient Allergies Darvon Allergy (Intermediate, Verified 11/09/24 10:51) oral swelling Doxycycline Hyclate Allergy (Intermediate, Verified 11/09/24 10:51) diarrhea, severe diarrhea tetracycline [TETRACYCLINE] Allergy (Intermediate, Verified 11/09/24 10:51) Itching Medication List - Last Reconciled 11/09/24 by Beatrice Jacob PA-C albuterol sulfate 90 mcg/actuation 1 inh inhalation QID PRN apixaban (Eliquis) 5 mg PO BID apixaban (Eliquis) 5 mg PO BID azathioprine 100 mg PO DAILY betamethasone dipropionate 0.05% 1 appl topical DAILY PRN buspirone 10 mg PO DAILY cholecalciferol (vitamin D3) 50 mcg PO DAILY 90 days cholestyramine (with sugar) 4 gram (Questran) 4 grams PO DAILY cyanocobalamin (vitamin B-12) 1,000 mcg IM Q4W 90 days dicyclomine 20 mg PO QID PRN dronedarone (Multaq) 400 mg PO BID dronedarone (Multaq) 400 mg PO BID mesalamine ER (Pentasa) 1,000 mg (4 x 250 mg) PO QID metoprolol tartrate 25 mg PO Q12H metoprolol tartrate 12.5 mg (1/2 x 25 mg) PO BID metoprolol tartrate 12.5 mg PO BID omeprazole 20 mg PO DAILY@0630 potassium chloride ER 20 mEq PO DAILY pyridoxine (vitamin B6) 100 mg PO DAILY raloxifene 60 mg PO DAILY tramadol 50 mg PO DAILY 90 days Tobacco use date assessed: 10/06/24 Dental Screening Dental Screen Date: 10/06/24 HPI [facility] 04/09 Sepsis HPI Details 69-year-old female with past medical history of GERD, asthma, anxiety, depression, impaired glucose tolerance, osteoporosis last seen 09/[address] Po coming in for hospital discharge follow up. In review of the notes, patient was [place] [facility] [place] for left flank pain admitted for sepsis due to acute pyelonephritis likely from left ureteral stone. Left stent was urgently placed 10/26/2024 due to clinical deterioration. Patient briefly had SVT resolved with adenosine and started on Multaq and continued on low-dose Lopressor. Found to have new onset AFib advised to continue on Eliquis, Multaq and metoprolol. She was found to have bilateral pleural effusions consider low-dose Lasix patient was discharged home 11/01/2024 advised to follow up with Urology, Cardiology and Gastroenterology. Presenting with post-sepsis recovery issues. Experienced a kidney infection that progressed to sepsis, resulting in systemic and cardiac involvement. Hospitalization included renal stent placement for stones. Describes slight improvement, awaiting further management for kidney stones. Has received no cardiology follow-up since hospital discharge. Reports heightened urination frequency, occasional burning, and urine incontinence, most of which has resolved since discharge from the hospital. GI evaluation was completed within last year with non-significant findings. Chills occur intermittently, absent fever but require Tylenol for management. [facility] Medical History (Updated 11/09/24 @ 11:04 by Beatrice Jacob PA-C) Afib Cellulitis and abscess of other specified site Osteoporosis Nicotine dependence, cigarettes, uncomplicated Breast cancer screening by mammogram Lip abscess Palpitations Flank pain Basal cell carcinoma Peptic ulcer disease Renal calculi Vitamin D deficiency Impaired glucose tolerance Anxiety and depression Anemia Asthma GERD (gastroesophageal reflux disease) Crohn's disease Surgical History History of tooth extraction History of surgical removal of ganglion cyst Hx of lithotripsy Hx of dilation and curettage Hx of cystoscopy History of hysteroscopy History of colonoscopy History of cholecystectomy Hx of appendectomy H/O tubal ligation History of lumpectomy of left breast S/P small bowel resection Social History Household Members: Significant Other Housing: House Alcohol intake: current Alcohol intake frequency: does not drink Patient Tobacco Use Status: Never used Tobacco Tobacco use type: Cigarette Cigarette Packs Per Day: 1 Cigarettes Per Day: 15 Years Smoked: 50 e-Cigarette/Vaping Use: Never Used Second Hand Smoke Exposure: Yes Advance Directives Date on File: 10/25/24 service: No Current occupational status: 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 How often do you have a drink containing alcohol?: Never 2. How many drinks containing alcohol do you have on a typical day when you are drinking?: 1 or 2 3. How often do you have six or more drinks on one occasion?: Never Total Score: 0 Score Reviewed/Action Taken: Yes MARLI-7 AMB Questionnaire MARLI-7 Date MARLI - 7 assessed: 07/08/24 Source: Developed by Drs. Neymar Florez, Elsy Patel, Tan Alejandra and colleagues, with an educational colleen from [employer]. Review of Systems Const Denies body aches, Denies chills, Denies fever(s), Denies headache(s) and Denies poor appetite Eyes Reports no additional complaints ENT Denies dysphagia, Denies dizziness, Denies headache(s) and Denies odynophagia Card Denies chest pain, Denies syncope, Denies edema, Denies irregular heart rhythm, Denies lightheadedness and Denies dyspnea Resp Denies cough and Denies dyspnea GI Denies abdominal pain, Denies constipation, Denies dysphagia, Denies diarrhea, Denies nausea, Denies odynophagia and Denies vomiting Reports no additional complaints Musc Reports no additional complaints and Denies abnormal gait Skin/Breast Reports system reviewed and no additional complaints, except as documented Neuro Denies abnormal gait, Denies dizziness, Denies syncope and Denies headache(s) Psych Reports no additional complaints Physical exam (Primary Care) Vital Signs: Last Vital Signs Temp 97.5 F 11/09/24 10:17 Pulse 78 11/09/24 10:17 Resp 18 11/09/24 10:17 BP 136/60 11/09/24 10:17 Pulse Ox 98 11/09/24 10:17 Oxygen Delivery Method Room Air 11/09/24 10:17 BMI result Body Mass Index 22.3 Tobacco/Smoking Status: Tobacco use Status Tobacco use date assessed 10/06/24 11/09/24 10:20 Patient Tobacco Use Status Never used Tobacco 11/09/24 10:20 Tobacco use type Cigarette 11/09/24 10:20 e-Cigarette/Vaping Use Never Used 11/09/24 10:20 Thrive Assessment: Date of Thrive Assessment Date Thrive assessed 10/25/24 11/09/24 10:20 Const General: cooperative, healthy appearing, comfortable and no acute distress Orientation/consciousness: patient oriented x3 HENMT Head: Yes normocephalic Ears: hearing grossly normal bilaterally General nose exam: Normal external nose present Eyes General: appearance normal, both eyes and all related structures Conjunctivae: conjunctivae normal Neck Neck: Yes full ROM and Yes no lymphadenopathy Resp Effort & Inspection: normal respiratory effort Auscultation: clear to auscultation bilaterally, no crackles, no rales, no rhonchi and no wheezes Cardio Rate: regular rate Rhythm: regular rhythm GI Palpation (GI): Soft to palpation, not firm, nontender, no guarding, not rigid and No Rebound tenderness present General: Yes no CVA tenderness Back/Spine/Pelvis Back: no CVA tenderness Skin General skin exam: no rashes or lesions noted Neuro General: patient oriented x3 Gait exam (Neuro): Normal gait present Extrem General: Yes normal to inspection, Yes full ROM and No edema Psych Affect: normal affect Attitude: cooperative Insight: Good insight present (Psych) Judgement: Good judgement present (Psych) Coding Level of Care Code TCM Mod MDM <= 14 Days Complex EM visit Add On G2211 Diagnoses Pyelonephritis N12 Impaired glucose tolerance R73.02 Afib I48.91 Anemia D64.9 Pleural effusion J90 Assessment & Plan Assessment & Plan (1) Pyelonephritis: Code(s): N12 - Tubulo-interstitial nephritis, not specified as acute or chronic Category: Medical Plan: Patient has pyelonephritis appears to have resolved. She has no suprapubic tenderness, no urinary complaints and no CVA tenderness on exam. At this time patient is advised to continue to monitor her symptoms and reach out she should develop any urinary complaints. Plan to obtain urinalysis to ensure infection is cleared. He is unable to provide a sample in the office today and lab orders have been placed. Patient advised to reach out to her urologist for post stent treatment. (2) Impaired glucose tolerance: Code(s): R73.02 - Impaired glucose tolerance (oral) Category: Medical Plan: Decrease the amount of carbohydrates such as pasta, bread, rice, and potatoes and limit the amount of sweets. Although fruits are generally healthy they should be eaten in moderation as they are still high in sugar (3) Afib: Code(s): I48.91 - Unspecified atrial fibrillation Category: Medical Plan: Patient is on full oral anticoagulation with Eliquis twice daily and rate controlled with metoprolol. She is advised to continue on the Multaq as prescribed. She is also advised to reach out to her heel builder machine for follow up. (4) Anemia: Code(s): D64.9 - Anemia, unspecified Category: Medical Plan: Anemia has been improving while in the hospital I did order for repeat CBC to ensure anemia continues to improve. She was seen by GI while admitted and was told they do not need to be followed up with outpatient. (5) Pleural effusion: Code(s): J90 - Pleural effusion, not elsewhere classified Category: Medical Plan: Patient was found to have small bilateral pleural effusions while in the hospital. She denies any shortness of breath, orthopnea or cough at this time. Plan to obtain chest x-ray to ensure effusions have been reduced or cleared. Plan The patient's recovery from sepsis will be closely monitored, alongside her renal stone and cardiac concerns. A referral to cardiology will be processed to ensure cardiac stability, while urologist follow-up will be expedited to address stent and stone management, aiming for lithotripsy as her condition allows. We will perform routine evaluations for possible urinary tract infections through repeated urine specimens, monitoring current urinary symptoms. Treatment of anemia includes scheduled injections with continued bloodwork assessments for Hb levels. Inquiry with a chest x-ray will assess the status of pulmonary edema. Symptom education regarding infection signs and the importance of immediate medical consultation have been emphasized. This note was constructed using voice recognition software. While every effort has been made to ensure accuracy and interstate bus driver, still areas may have been included sometimes these areas may affect the content or meeting of the given symptoms. Total time spent caring for the patient today was 30 minutes. This includes time spent before the visit reviewing the chart, time spent during the visit, and time spent after the visit and documentation. Patient was informed and verbally consented to the use of an ambient scribe for clinic note documentation during this visit. Orders: Orders Complete Blood Count Auto Diff Today D64.9 - Anemia, unspecified XR chest 2V Today J90 - Pleural effusion, not elsewhere classified UA CC w/rflx Micro + Cult Today R35.89 - Other polyuria IRON PROFILE Today D64.9 - Anemia, unspecified Referrals Cardiology Referral I48.91 - Unspecified atrial fibrillation
[2024-11-09 10:17] VITALS: BP 136/60; PULSE 78; RESP 18; TEMP 36.4; O2SAT 98; BMI 22.3
--- OUTSIDE RECORDS SUMMARY | 2024-11-09 11:16 | XMS_ITS ---
Author Organization [facility] Address [address] [place] [address] Care Team Providers Care Intravenous Therapy Nurse Name Role Phone Tae Duarte MD Primary Care Provider Neymar Sanders [phone] Allergies Allergen (clinical drug ingredient) Drug/Non Drug [...] 50 MG TAKE 2 TABLETS BY MO [facility] EVERY DAY Active Raloxifene HCl Unkno [...] 03/22/2024 Encounters Encounter Location Date Provider Diagnosis [facility] [address] [place] [address] 03/22/2024 Neymar Sauer GERD (gastroesophage al reflux [...] Provider Name:Neymar Sauer , 03/21/2025 10:20:00 AM, [address] [place] [address], [place] [address], [place], [address], Progress Notes * VIVIAN BUNN ADOB:01/1955 (68 yo F)Acc No.[id number]:03/22/2024 Progress Notes Patient:?VIVIAN BUNN A Provider:?Neymar Sauer MD :1955???Age:68 Y???Sex:Female D ate:03/22/2024 Address:[address] [place] [address] [place] [phone] Pcp:Tae Duarte MD Subjective: * Chief Complaints: [...] removed November 2012Removed basal call carcinoma from [facility] Dec 2012[facility]. Leahy 04/17/2015Squamous cell cancer [...] 2, Interpretation: Negative.?Miscellaneous:?Marital status: . 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 ???Smokes; no sig alcohol. * Medications:?TakingVitamin B [...] Procedure Codes:?3017F COLOR ECTAL CA SCREEN DOC [id number] Pt scrn tbco and id as [id number] BP SCR NOT PRFRM REC REASON NOS [...] MD Date:? [address] adame/Dexter/Efrenitting on:?11/09/2024 11:16 AM EDT History and Physical Notes * [...]
== END 2024-11-09 11:13 | disposition home or self-care (01) ==
LOC: HO.HMCH 10:02
PROVIDERS: PCP Internal Medicine
DX: R73.02 Impaired glucose tolerance (oral) (principal); N12 Tubulo-interstitial nephritis, not specified as acute or chronic; I48.91 Unspecified atrial fibrillation; D64.9 Anemia, unspecified; J90 Pleural effusion, not elsewhere classified

== ENCOUNTER → 2024-11-09 10:01 | Outpatient (BNVA) | payer MEDICARE, SELFPAY | PROVIDERS: PCP Internal Medicine | DX: N12 Tubulo-interstitial nephritis, not specified as acute or chronic (principal); R73.02 Impaired glucose tolerance (oral); I48.91 Unspecified atrial fibrillation; D64.9 Anemia, unspecified; J90 Pleural effusion, not elsewhere classified | CPT/HCPCS: 99495 ==

== ENCOUNTER → 2024-11-11 09:11 | Outpatient (REF) | payer MEDICARE, SELFPAY ==
--- NOTE | ~2024-11-11 | XR_ITS ---
EXAMINATION: XR CHEST 2 VIEWS HISTORY: J90 - Pleural effusion, not elsewhere classified COMPARISON: Comparison is made with the prior examinations dated 10/28/2024 and 10/24/2024. FINDINGS: PA and lateral views of the chest are submitted. The lungs are expanded and clear. There is slight blunting of the left costophrenic angle which could represent trace pleural effusion or pleural thickening. There is no right pleural effusion. There is no pneumothorax or pulmonary vascular congestion. The heart is normal in size. There is degenerative disc disease of the spine. XR/XR chest 2V IMPRESSION: Trace left pleural effusion versus pleural thickening. Electronically signed by: Neymar Toney MD 11/11/2024 09:56 AM EDT
[2024-11-11 09:26] LABS: MANUAL DIFF FLAG NO
--- OUTSIDE RECORDS SUMMARY | 2024-11-11 09:33 | XMS_ITS ---
Author Organization [facility] Address [address] [place] [address] Care Team Providers Care Fire Prevention Captain Name Role Phone Tae Duarte MD Primary Care Provider Neymar Sanders [phone] Allergies Allergen (clinical drug ingredient) Drug/Non Drug [...] 50 MG TAKE 2 TABLETS BY MO [facility] EVERY DAY Active Raloxifene HCl Unkno [...] 03/22/2024 Encounters Encounter Location Date Provider Diagnosis [facility] [address] [place] [address] 03/22/2024 Nyemar Sauer GERD (gastroesophage al reflux disease) K21.9 [...] Provider Name:Neymar Sauer , 03/21/2025 10:20:00 AM, [address] [place] [address], [place] [address], [place], [address], Progress Notes * VIVIAN BUNN ADOB:01/1955 (68 yo F)Acc No.[id number]:03/22/2024 Progress Notes Patient:?VVIIAN BUNN A Provider:?Neymar Sauer MD :1955???Age:68 Y???Sex:Female D ate:03/22/2024 Address:[address] [place] [address] [place] [phone] Pcp:Tae Duarte MD Subjective: * Chief Complaints: [...] removed November 2012Removed basal call carcinoma from [facility] Dec 2012[facility] Leahy 04/17/2015Squamous cell cancer [...] 2, Interpretation: Negative.?Miscellaneous:?Marital status: . 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 ???Smokes; no sig alcohol. * Medications:?TakingVitamin B [...] Procedure Codes:?3017F COLOR ECTAL CA SCREEN DOC [id number] Pt scrn tbco and id as [id number] BP SCR NOT PRFRM REC REASON NOS [...] MD Date:? [address] adame/Dexter/Efrenitting on:?11/11/2024 09:32 AM EDT History and Physical Notes * [...]
[2024-11-11 09:42] LABS: Basophils Absolute Auto 0.1 X10*3/uL (0.0-0.2); Basophils Percent Auto 0.8 % (0-2); Eosinophils Absolute Auto 0.1 X10*3/uL (0.0-0.4); Eosinophils Percent Auto 1.1 % (0-4); Hematocrit 30.2 % (37.0-47.0); Hemoglobin 9.9 g/dl (12.0-16.0); Imm Gran Abs Auto 0.07 X10*3/uL (0.00-0.03); Imm Gran Pct Auto 0.7 % (0.0-0.4); Lymphocytes Absolute Auto 0.8 X10*3/uL (1.2-4.9); Lymphocytes Percent Auto 7.3 % (20-40); Mean Corpuscular HGB Conc 32.8 g/dl (31.0-35.0); Mean Corpuscular Hemoglobin 33.4 pg (27.0-33.0); Mean Platelet Volume 9.3 fL (9.4-12.3); Monocytes Absolute Auto 0.7 X10*3/uL (0.1-1.2); Monocytes Percent Auto 6.1 % (2-11); Platelet Count 399 X10*3/uL (160-400); Red Blood Count 2.96 X10*6/uL (4.20-5.50); Red Cell Distribution Width 15.9 % (11.0-16.0); White Blood Count 10.7 X10*3/uL (4.8-10.8)
--- NOTE | 2024-11-11 09:55 | HM_ITS ---
* Total monitoring time 3 days. * Underlying rhythm is sinus with an average rate of 82/Min. * Rare supraventricular ectopy. * Rare ventricular ectopy. One couplet and triplet. * No significant pauses or high-grade AV blocks. * No patient markers or diary events. MTDD
[2024-11-11 10:54] LABS: Appearance Urine Cloudy; Color Urine Yellow; Glucose Urine UA Negative (Negative); Leukocyte Esterase Urine Large (3+) (Negative); Nitrite Urine Negative (Negative); PH 5.5 (5.0-9.0); Specific Gravity - Urine <= 1.005 (1.005-1.025); UMIC TRIGGER UACC YES; Urine Blood Moderate (2+) (Negative); Urine Ketones Negative (Negative); Urine Protein Trace mg/dL (Neg-Trace)
[2024-11-11 10:57] LABS: Iron 47 mcg/dL (30-160); Percent Iron Saturation 27 % (15-50); Total Iron Binding Capacity 171 mcg/dL (228-428); Unsaturated Iron Binding 124 ug/dL
[2024-11-11 11:11] LABS: Bacteria Urine 4+ (None Seen); Hyaline Casts Urine 0-2 /LPF (0-2); RBC Urine 0-2 /HPF (0-2); Squamous Epithelial Cell Urine 0-2 /HPF (0-2); UACC Culture Trigger YES
== END ==
LOC: HO.CARD 09:11
PROVIDERS: PCP Internal Medicine; Visit Provider Internal Medicine Cardiovascular Disease
DX: I47.10 Supraventricular tachycardia, unspecified (principal); J90 Pleural effusion, not elsewhere classified; D64.9 Anemia, unspecified
CPT/HCPCS: 36415; 71046; 81001; 83540; 85025; 87086; 87088; 87186; 93242

== ENCOUNTER → 2024-11-11 09:33 | Outpatient (BNV) | payer MEDICARE, SELFPAY | PROVIDERS: PCP Internal Medicine; Visit Provider Radiology Diagnostic Radiology | DX: J90 Pleural effusion, not elsewhere classified (principal) | CPT/HCPCS: 71046 ==

== ENCOUNTER → 2024-11-11 09:55 | Outpatient (BNV) | payer MEDICARE, SELFPAY | PROVIDERS: PCP Internal Medicine; Visit Provider Internal Medicine | DX: I47.10 Supraventricular tachycardia, unspecified (principal); I49.3 Ventricular premature depolarization | CPT/HCPCS: 93244 ==

== ENCOUNTER 2024-11-21 08:20 | Outpatient (AMB) | payer MEDICARE, SELFPAY ==
--- OUTSIDE RECORDS SUMMARY | 2024-11-21 08:33 | XMS_ITS | Patient Health Record ---
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 Name Role Phone Po Tae FERRER Primary Care Provider Neymar Sanders [phone] Allergies Allergen (clinical drug ingredient) Drug/Non Drug Allergy documented on EMR Reaction Allergy Type Onset Date Status tetracycline Tetracycline HCl Unknown Drug Allergy Active Darvon Unknown Drug Allergy Active Results Component Value Reference Range Notes Complete Blood Count Auto Di ff Reviewed date:11/23/2023 10:23:49 PM Interpretation: Performing Lab:[facility], [address] [place] [phone] Notes/Report: White Blood Count 4.8 4.8-10.8 X10*3/uL [...] Panel Reviewed date:11/23/2023 10:24:01 PM Interpretation: Performing Lab:[address] [address] Notes/Report: Bilirubin Total 0.5 0.0-1.0 mg/dL Bilirubin Direct 0.2 0.0-0.5 mg/dL Aspartate Amino Transferase 24 5-31 U/L Alanine Aminotransferase 15 0-31 U/L Total Protein 6.8 6.5-8.0 g/dL Albumin Level 4.0 3.5-5.0 g/dL Alkaline Phosphatase 93 39-117 U/L Complete Blood Count Auto Di ff Reviewed date:12/28/2023 07:00:26 PM Interpretation: Performing Lab:[address] [phone] Notes/Report: White Blood Count 5.2 4.8-10.8 X10*3/uL [...] Panel Reviewed date:12/25/2023 07:24:09 PM Interpretation: Performing Lab:[address] [phone] Notes/Report: Bilirubin Total 0.3 0.0-1.0 mg/dL Bilirubin Direct 0.1 0.0-0.5 mg/dL Aspartate Amino Transferase 19 5-31 U/L Alanine Aminotransferase 11 0-31 U/L Total Protein 6.9 6.5-8.0 g/dL Albumin Level 4.1 3.5-5.0 g/dL Alkaline Phosphatase 86 39-117 U/L Vitamin B12 Reviewed date:12/25/2023 07:24:18 PM Interpretation: Performing Lab:[address] [address] Notes/Report: Vitamin B12 432 200-900 pg/mL NORMAL 200-900 PG/ML INDETERMINATE 160-199 PG/ML DEFICIENT < 160 PG/ML Liver Panel Reviewed date:01/23/2024 10:45:45 PM Interpretation: Performing Lab:[address], [place] [address] Notes/Report: Bilirubin Total 0.5 0.0-1.0 mg/dL Bilirubin Direct 0.2 0.0-0.5 mg/dL Aspartate Amino Transferase 23 5-31 U/L Alanine Aminotransferase 15 0-31 U/L Total Protein 6.6 6.5-8.0 g/dL Albumin Level 4.0 3.5-5.0 g/dL Alkaline Phosphatase 83 39-117 U/L Liver Panel Reviewed date:02/22/2024 11:20:19 PM Interpretation: Performing Lab:[facility], [address] [place] [phone] Notes/Report: Bilirubin Total 0.5 0.0-1.0 mg/dL Bilirubin Direct 0.2 0.0-0.5 mg/dL Aspartate Amino Transferase 22 5-31 U/L Alanine Aminotransferase 16 0-31 U/L Total Protein 6.7 6.5-8.0 g/dL Albumin Level 4.0 3.5-5.0 g/dL Alkaline Phosphatase 86 39-117 U/L Complete Blood Count Auto Di ff Reviewed date:03/23/2024 06:59:11 PM Interpretation: Performing Lab:[facility], [address] [place] [phone] Notes/Report: White Blood Count 3.6 4.8-10.8 X10*3/uL [...] Panel Reviewed date:03/23/2024 06:59:35 PM Interpretation: Performing Lab:[address] [phone] Notes/Report: Bilirubin Total 0.3 0.0-1.0 mg/dL Bilirubin Direct 0.1 0.0-0.5 mg/dL Aspartate Amino Transferase 27 5-31 U/L Alanine Aminotransferase 17 0-31 U/L Total Protein 6.6 6.5-8.0 g/dL Albumin Level 4.0 3.5-5.0 g/dL Alkaline Phosphatase 91 39-117 U/L MAMMOGRAM DIGITAL BILATERAL SCREEN Reviewed date:03/24/2024 08:32:51 AM Interpretation:Normal Performing Lab: Notes/Report: Normal Complete Blood Count Auto Di ff Reviewed date:04/23/2024 09:32:52 AM Interpretation: Performing Lab:[facility], [address] [place] [phone] Notes/Report: White Blood Count 5.5 4.8-10.8 X10*3/uL [...] Panel Reviewed date:04/23/2024 09:33:16 AM Interpretation: Performing Lab:[address] [address] Notes/Report: Bilirubin Total 0.4 0.0-1.0 mg/dL Bilirubin Direct 0.1 0.0-0.5 mg/dL Aspartate Amino Transferase 23 5-31 U/L Alanine Aminotransferase 16 0-31 U/L Total Protein 7.1 6.5-8.0 g/dL Albumin Level 4.3 3.5-5.0 g/dL Alkaline Phosphatase 86 39-117 U/L Complete Blood Count Auto Di ff Reviewed date:05/20/2024 04:02:01 PM Interpretation: Performing Lab:[address] [address] Notes/Report: White Blood Count 4.9 4.8-10.8 X10*3/uL [...] Panel Reviewed date:05/20/2024 04:02:33 PM Interpretation: Performing Lab:[facility], [address] [place] [phone] Notes/Report: Bilirubin Total 0.4 0.0-1.0 mg/dL Bilirubin Direct 0.1 0.0-0.5 mg/dL Aspartate Amino Transferase 29 5-31 U/L Alanine Aminotransferase 19 0-31 U/L Total Protein 7.0 6.5-8.0 g/dL Albumin Level 4.1 3.5-5.0 g/dL Alkaline Phosphatase 82 39-117 U/L Complete Blood Count Auto Di ff Reviewed date:06/21/2024 10:33:11 AM Interpretation: Performing Lab:[facility], [address] [place] [phone] Notes/Report: White Blood Count 4.2 4.8-10.8 X10*3/uL [...] Panel Reviewed date:06/21/2024 10:33:28 AM Interpretation: Performing Lab:[facility], [address] [place] [phone] Notes/Report: Bilirubin Total 0.4 0.0-1.0 mg/dL Bilirubin Direct 0.1 0.0-0.5 mg/dL Aspartate Amino Transferase 24 5-31 U/L Alanine Aminotransferase 24 0-31 U/L Total Protein 7.3 6.5-8.0 g/dL Albumin Level 4.2 3.5-5.0 g/dL Alkaline Phosphatase 87 39-117 U/L Complete Blood Count Auto Di ff Reviewed date:07/22/2024 05:28:16 PM Interpretation: Performing Lab:[facility], [address] [place] [phone] Notes/Report: White Blood Count 5.1 4.8-10.8 X10*3/uL [...] 0.0-0.2 /100WBC Neutrophils Absolute Auto 3.5 2.0-8.3 x10*3/u L Imm Gran Abs Auto 0.02 0.00-0.03 X10*3/uL Lymphocytes Absolute Auto 0.8 1.2-4.9 X10*3/u L Monocytes Absolute Auto 0.5 0.1-1.2 X10*3/uL Eosinophils Absolute Auto 0.2 0.0-0.4 X10*3/u L Basophils Absolute Auto 0.1 0.0-0.2 X10*3/uL NRBC Abs Auto 0.000 0.0-0.012 X10*3/uL Comprehensive Met. Panel Reviewed date:07/26/2024 06:49:01 PM Interpretation: Performing Lab:[facility], [address] [place] [phone] Notes/Report: Sodium 139 135-145 mmol/L Potassium 3.9 [...] Panel Reviewed date:07/26/2024 06:49:13 PM Interpretation: Performing Lab:[facility], [address] [place] [phone] Notes/Report: Bilirubin Direct 0.2 0.0-0.5 mg/dL IRON PROFILE Reviewed date:07/26/2024 06:49:29 PM Interpretation: Performing Lab:[facility], [address] [place] [phone] Notes/Report: Iron 94 30-160 mcg/dL Total Iron Binding Capacity 257 228-428 mcg/d L Percent Iron Saturation 37 15-50 % Unsaturated Iron Binding 163 Lipid Panel Reviewed date:07/26/2024 06:49:37 PM Interpretation: Performing Lab:[facility], [address] [place] [phone] Notes/Report: Triglycerides 72 <150 mg/dL Desirable Triglyceride: [...] Hormone Reviewed date:07/26/2024 06:49:57 PM Interpretation: Performing Lab:[facility], [address] [place] [phone] Notes/Report: Thyroid Stimulating Hormone 1.50 0.32-4.0 uIU/ mL TSH 3rd Generation ([employer]) Complete Blood Count Auto Di ff Reviewed date:09/19/2024 08:11:23 PM Interpretation: Performing Lab:[facility], [address] [place] [phone] Notes/Report: White Blood Count 4.4 4.8-10.8 X10*3/uL [...] 0.0-0.2 /100WBC Neutrophils Absolute Auto 2.7 2.0-8.3 x10*3/u L Imm Gran Abs Auto 0.01 0.00-0.03 X10*3/uL Lymphocytes Absolute Auto 0.8 1.2-4.9 X10*3/u L Monocytes Absolute Auto 0.6 0.1-1.2 X10*3/uL Eosinophils Absolute Auto 0.2 0.0-0.4 X10*3/u L Basophils Absolute Auto 0.1 0.0-0.2 X10*3/uL NRBC Abs Auto 0.000 0.0-0.012 X10*3/uL Liver Panel Reviewed date:09/19/2024 08:10:44 PM Interpretation: Performing Lab:[facility], [address] [place] [phone] Notes/Report: Bilirubin Total 0.5 0.0-1.0 mg/dL Bilirubin Direct 0.2 0.0-0.5 mg/dL Aspartate Amino Transferase 30 5-31 U/L Alanine Aminotransferase 19 0-31 U/L Total Protein 6.9 6.5-8.0 g/dL Albumin Level 4.3 3.5-5.0 g/dL Alkaline Phosphatase 82 39-117 U/L Complete Blood Count Auto Di ff Reviewed date:10/20/2024 09:57:22 PM Interpretation: Performing Lab:[facility], [address] [place] [phone] Notes/Report: White Blood Count 5.2 4.8-10.8 X10*3/uL Red Blood Count 3.79 4.20-5.50 X10*6/uL Hemoglobin 13.1 12.0-16.0 g/dl Hematocrit 38.7 37.0-47.0 % Mean Corpuscular Volume 102.1 80.0-98.0 fL Mean Corpuscular Hemoglobin 34.6 27.0-33.0 pg Mean Corpuscular HGB Conc 33.9 31.0-35.0 g/dl Red Cell Distribution Width 13.6 11.0-16.0 % Platelet Count 305 160-400 X10*3/uL Mean Platelet Volume 10.4 9.4-12.3 fL Neutrophils Percent Auto 66.1 45-73 % Imm Gran Pct Auto 0.4 0.0-0.4 % Lymphocytes Percent Auto 17.2 20-40 % Monocytes Percent Auto 9.5 2-11 % Eosinophils Percent Auto 5.8 0-4 % Basophils Percent Auto 1.0 0-2 % NRBC Pct Auto 0.0 0.0-0.2 /100WBC Neutrophils Absolute Auto 3.4 2.0-8.3 x10*3/u L Imm Gran Abs Auto 0.02 0.00-0.03 X10*3/uL Lymphocytes Absolute Auto 0.9 1.2-4.9 X10*3/u L Monocytes Absolute Auto 0.5 0.1-1.2 X10*3/uL Eosinophils Absolute Auto 0.3 0.0-0.4 X10*3/u L Basophils Absolute Auto 0.1 0.0-0.2 X10*3/uL NRBC Abs Auto 0.000 0.0-0.012 X10*3/uL Liver Panel Reviewed date:10/20/2024 09:09:23 AM Interpretation: Performing Lab:[facility], [address] [place] [phone] Notes/Report: Bilirubin Total 0.4 0.0-1.0 mg/dL Bilirubin Direct 0.2 0.0-0.5 mg/dL Aspartate Amino Transferase 24 5-31 U/L Alanine Aminotransferase 21 0-31 U/L Total Protein 7.0 6.5-8.0 g/dL Albumin Level 4.2 3.5-5.0 g/dL Alkaline Phosphatase 78 39-117 U/L Reason For Referral No Information [...] a day Active Raloxifene HCl Unkno wn Omeprazole 20 MG take 1 capsule by mo uth once daily Orally Once a day Active Pentasa 500 MG TAKE 2 CAPSULES BY M OUTH 4 TIMES A DAY 90 DAYS for 90 Active Vitamin B-6 100 MG 1 tablet [...] Problem Status W/U Status Risk Notes Problem 214374241 Gastro-esophagea l reflux disease without esophagitis (K21.9) Active confirmed Problem 281145496 Encounter for screening for malignant neoplasm of colon (Z12.11) Active confirmed Problem 285749085 History of adenomatous polyp of colon (Z86.010) Active confirmed Problem 37584368 Weight loss (R63.4) Active confirmed Problem 30704605 Crohn's disease of both small and large intestine without complication (K50.80) Active confirmed Problem 89520660 Crohn's disease of both small and large intestine without complications (K50.80) Active confirmed Problem Diverticular disease of colon (240254015) Diverticulosis of large intestine without perforation or abscess without bleeding (K57.30) Active confirmed Problem 602031885 Irritable bowel syndrome with diarrhea (K58.0) Active confirmed Problem 4335247 Melena (K92.1) Active confirmed Problem 499586609 Encounter for therapeutic drug level monitoring (Z51.81) Active confirmed Problem History of gastrointestinal tract bypass (853363600) Intestinal bypass and anastomosis status (Z98.0) Active confirmed Problem 00718763 Crohns disease o f both small and large intestine without complication (K50.80) Active confirmed Problem 586747066 History of colon polyps (Z86.010) Active confirmed Problem 111294201 Gallstones (K80.20) Active confirmed Problem Gastroesophageal reflux disease (100016740) GERD (gastroesophageal reflux disease) (K21.9) Active confirmed Problem 751436228 Abdominal pain, generalized (R10.84) Active confirmed Problem 37724221 Diarrhea, unspecified type (R19.7) Active confirmed Problem 584424545 Therapeutic drug monitoring (Z51.81) Active confirmed Problem 03941405 Crohn''s disease of both small and large intestine without complication (K50.80) Active confirmed Problem 70794767 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 Vital Signs Blood pressure diastolic 77 mm Hg 09/27/2024 Height 65 in 09/27/2024 Blood pressure systolic 111 mm Hg 09/27/2024 Weight 130 lbs 09/27/2024 BMI 21.63 kg/m2 09/27/2024 Encounters Encounter Location Date Provider Diagnosis [facility] [address] [place] [address] 03/22/2024 Neymar Sauer GERD (gastroesophage al reflux disease) K21.9 ; Crohn's disease of both small and large intestine without complications K50.80 and Bile salt-induced diarrhea K90.89 [facility] [address] [place] [address] 09/27/2024 Neymar Sauer Crohns disease of elkin th small and large intestine without complication K50.80 ; Gastro-esophageal reflux disease without esophagitis K21.9 ; History of adenomatous polyp of colon Z86.010 ; Diarrhea, unspecified type R19.7 and Bile salt-induced diarrhea K90.89 [facility] [address] [place] [address] 12/18/2023 Neymar Sauer [facility] [address] [place], [place] [address] [address] 12/21/2023 Neymar Sauer [facility] [address] [place] [address] 02/22/2024 Neymar Sauer Crohn''s disease of both small and large intestine without complication K50.80 [facility] [address] [place] [phone] 10/28/2024 Neymar Sauer Assessments Encounter Date Diagnosis (ICD Code) Assessment Notes Treatment Notes Treatment Clinical Notes Section Notes 03/22/2024 Crohn's disease of both small and [...] you advised of her progress. 03/22/2024 GERD (gastroesophagea l reflux disease) (ICD-10 - K21.9) Vivian appears [...] keep you advised of her progress. 09/27/2024 Crohns disease of both small and [...] given her good relief of her previous diarrhea. I did advise her to continue her [...] intestine without complication (ICD-10 - K50.80) 03/22/2024 Bile salt-induced diarrhea [...] keep you advised of her progress. 09/27/2024 Gastro-esophagea l reflux disease without esophagitis (ICD-10 - K21.9) [...] given her good relief of her previous diarrhea. I did advise her to continue her [...] given her good relief of her previous diarrhea. I did advise her to continue her [...] questions I can be of assistance with. Vivain was comfortable with this plan. Thank you [...] given her good relief of her previous diarrhea. I did advise her to continue her [...] given her good relief of her previous diarrhea. I did advise her to continue her [...] advised of her progress. Plan Of Treatment Pending Test Test Name Order Date LIVER PROFILE 01/03/2014 LIVER PROFILE 12/22/2022 LIVER PROFILE 06/02/2018 LIVER PROFILE 06/29/2017 LIVER PROFILE 06/04/2021 LIVER PROFILE 07/30/2020 LIVER PROFILE 02/22/2024 LIVER PROFILE 10/26/2018 LIVER PROFILE 03/03/2012 LIVER PROFILE 08/08/2021 LIVER PROFILE 07/18/2016 CRP 02/28/2021 CRP 03/04/2022 CBC w DIFF 03/04/2022 CBC w DIFF 08/08/2021 CBC w DIFF 07/18/2016 CBC w DIFF 06/23/2019 CBC w DIFF 01/03/2014 CBC w DIFF 12/22/2022 CBC w DIFF 06/02/2018 CBC w DIFF 06/29/2017 CBC w DIFF 06/04/2021 CBC w DIFF 07/30/2020 CBC w DIFF 07/31/2014 CBC w DIFF 02/22/2024 CBC w DIFF 10/26/2018 CBC w DIFF 03/03/2012 SED RATE (ESR) 03/04/2022 SED RATE (ESR) [...] Provider Name:Neymar Sauer , 03/21/2025 10:20:00 AM, [address] [place] [address], [address], [place], [address], Insurance Providers Payer Name Payer Address Payer Phone Subscriber Number Group Number Insured Name Patient Relationship to Insured Coverage Start Date Coverage End Date MEDICARE OF [place] [address] [place] [address] [id number] VIVIAN BUNN Self - patient is the insured [employer] ATTN CLAIMS [address] [place] [address] [id number] VIVIAN BUNN Self - patient is the insured Medical [...] the area of the femoral neck Denies [place],DM,CVA,Lung disease,renal dise ase Anxiety GERD--EGD in 04/2007 [...] Leahy 04/17/2015 Removed basal call carcinoma from [facility] Dec 2012 Cyst behind right ear removed November 2012 BTL Benign breast biopsy Crohn's disease in 1989 with right ileoc olectomy with Dr. Lima
--- NOTE | 2024-11-21 08:48 | AM.OFFVISNUR ---
Intake Visit Reasons: B12 Shot Allergies Darvon Allergy (Intermediate, Verified 11/09/24 10:51) oral swelling Doxycycline Hyclate Allergy (Intermediate, Verified 11/09/24 10:51) diarrhea, severe diarrhea tetracycline (TETRACYCLINE) Allergy (Intermediate, Verified 11/09/24 10:51) Itching Office Meds cyanocobalamin (vitamin B-12) 1,000 mcg/mL injection solution Performing Provider: Tae Duarte MD [facility] Administered by: Rachana Godfrey RN on 11/21/24 08:48 Dose Route Admin Location Dispensed Lot Number Expiration Date [facility] [employer] 1,000 mcg IM left deltoid 1 mL [id number] 02/28/26 46739-993-85 [employer] Total Dispensed Waste 1 mL 0 % Assessment & Plan Assessment & Plan Orders: Orders AMB Vitamin B12 Injection Patient Supplied Today E53.8 - Deficiency of other specified B group vitamins Coding
== END 2024-11-21 08:53 | disposition home or self-care (01) ==
LOC: HO.HMCH 08:21
PROVIDERS: PCP Internal Medicine; Visit Provider Internal Medicine
DX: E53.8 Deficiency of other specified B group vitamins (principal)

== ENCOUNTER 2024-11-21 08:20 | Outpatient (REF) | payer MEDICARE, SELFPAY ==
[2024-11-21 09:22] LABS: MANUAL DIFF FLAG NO
[2024-11-21 09:36] LABS: Basophils Absolute Auto 0.1 X10*3/uL (0.0-0.2); Basophils Percent Auto 1.2 % (0-2); Eosinophils Absolute Auto 0.2 X10*3/uL (0.0-0.4); Eosinophils Percent Auto 2.3 % (0-4); Hematocrit 35.3 % (37.0-47.0); Hemoglobin 11.2 g/dl (12.0-16.0); Imm Gran Abs Auto 0.05 X10*3/uL (0.00-0.03); Imm Gran Pct Auto 0.6 % (0.0-0.4); Lymphocytes Absolute Auto 1.3 X10*3/uL (1.2-4.9); Lymphocytes Percent Auto 15.3 % (20-40); Mean Corpuscular HGB Conc 31.7 g/dl (31.0-35.0); Mean Corpuscular Hemoglobin 32.8 pg (27.0-33.0); Mean Corpuscular Volume 103.5 fL (80.0-98.0); Mean Platelet Volume 9.2 fL (9.4-12.3); Monocytes Absolute Auto 0.5 X10*3/uL (0.1-1.2); Neutrophils Absolute Auto 6.5 x10*3/uL (2.0-8.3); Neutrophils Percent Auto 74.6 % (45-73); Platelet Count 452 X10*3/uL (160-400); Red Blood Count 3.41 X10*6/uL (4.20-5.50); Red Cell Distribution Width 15.4 % (11.0-16.0); White Blood Count 8.7 X10*3/uL (4.8-10.8)
[2024-11-21 09:49] LABS: Appearance Urine Cloudy; Color Urine Yellow; Glucose Urine UA Negative (Negative); Leukocyte Esterase Urine Large (3+) (Negative); Nitrite Urine Negative (Negative); PH 5.5 (5.0-9.0); Specific Gravity - Urine <= 1.005 (1.005-1.025); UMIC TRIGGER UACC YES; Urine Blood Moderate (2+) (Negative); Urine Ketones Negative (Negative); Urine Protein 30 (1+) mg/dL (Neg-Trace)
[2024-11-21 10:08] LABS: Alanine Aminotransferase 8 U/L (0-31); Albumin Level 3.6 g/dL (3.5-5.0); Alkaline Phosphatase 108 U/L (39-117); Aspartate Amino Transferase 18 U/L (5-31); Bilirubin Direct 0.1 mg/dL (0.0-0.5); Bilirubin Total 0.3 mg/dL (0.0-1.0); Total Protein 7.1 g/dL (6.5-8.0)
[2024-11-21 10:14] LABS: Bacteria Urine None Seen (None Seen); Squamous Epithelial Cell Urine 0-2 /HPF (0-2); UACC Culture Trigger YES; WBC Urine 21-50 /HPF (0-5)
== END 2024-11-21 08:21 | disposition home or self-care (01) ==
LOC: HO.LABR 08:20
PROVIDERS: Absent Provider Internal Medicine; PCP Internal Medicine; Visit Provider Internal Medicine
DX: E87.6 Hypokalemia (principal); E53.8 Deficiency of other specified B group vitamins; K50.80 Crohn's disease of both small and large intestine without complications; R82.90 Unspecified abnormal findings in urine
CPT/HCPCS: 36415; 80076; 81001; 84132; 85025; 87086; 96372; J3420

== ENCOUNTER 2024-11-25 12:41 | Outpatient (AMB) | payer MEDICARE, SELFPAY ==
--- NOTE | 2024-11-25 12:57 | A.OFFVIS_ITS ---
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 Accompanied by: Self / Same As Patient Allergies Darvon Allergy (Intermediate, Verified 11/09/24 10:51) oral swelling Doxycycline Hyclate Allergy (Intermediate, Verified 11/09/24 10:51) diarrhea, severe diarrhea tetracycline (TETRACYCLINE) Allergy (Intermediate, Verified 11/09/24 10:51) Itching Medication List - Last Reconciled 11/25/24 by Ariel Aragon NP albuterol sulfate 90 mcg/actuation 1 inh inhalation QID PRN apixaban (Eliquis) 5 mg PO BID azathioprine 100 mg PO DAILY betamethasone dipropionate 0.05% 1 appl topical DAILY PRN buspirone 10 mg PO DAILY cholecalciferol (vitamin D3) 50 mcg PO DAILY 90 days cholestyramine (with sugar) 4 gram (Questran) 4 grams PO DAILY cyanocobalamin (vitamin B-12) 1,000 mcg IM Q4W 90 days dicyclomine 20 mg PO QID PRN dronedarone (Multaq) 400 mg PO BID mesalamine ER (Pentasa) 1,000 mg (4 x 250 mg) PO QID metoprolol tartrate 12.5 mg (1/2 x 25 mg) PO BID metoprolol tartrate 12.5 mg PO BID omeprazole 20 mg PO DAILY@0630 pyridoxine (vitamin B6) 100 mg PO DAILY raloxifene 60 mg PO DAILY tramadol 50 mg PO DAILY 90 days HPI Comments Details: This is a 69-year-old female patient coming in for a hospital discharge follow- up visit. Patient with no known history of cardiomyopathy, coronary artery disease, or ischemic disease. Patient was recently in the hospital for sepsis related to acute pyelonephritis and bacteremia. During this visit, patient had episodes of SVT with the heart rates at 240s, where patient was given adenosine to break out of it. Patient also had new onset of AFib with RVR during this visit and was treated with Multaq and metoprolol. Patient was also started on Eliquis therapy. Subsequently in the outpatient setting, patient underwent a Holter monitor study. Patient does report that occasionally she does get some palpitations which can be with exertion as well as at rest, however, denies any associated symptoms of exertional chest pain, shortness of breath, dizziness, orthopnea, PND, leg edema, presyncope, or syncope. Patient states she is compliant with all her medications and occasionally drinks alcohol. Patient admits that she is still smoking however has significantly reduced the intake and is planning to quitting. [facility] Medical History Afib Cellulitis and abscess of other specified site Osteoporosis Nicotine dependence, cigarettes, uncomplicated Breast cancer screening by mammogram Lip abscess Palpitations Flank pain Basal cell carcinoma Peptic ulcer disease Renal calculi Vitamin D deficiency Impaired glucose tolerance Anxiety and depression Anemia Asthma GERD (gastroesophageal reflux disease) Crohn's disease Surgical History History of tooth extraction History of surgical removal of ganglion cyst Hx of lithotripsy Hx of dilation and curettage Hx of cystoscopy History of hysteroscopy History of colonoscopy History of cholecystectomy Hx of appendectomy H/O tubal ligation History of lumpectomy of left breast S/P small bowel resection Social History Household Members: Significant Other Housing: House Alcohol intake: current Alcohol intake frequency: does not drink Patient Tobacco Use Status: Never used Tobacco Tobacco use type: Cigarette Cigarette Packs Per Day: 1 Cigarettes Per Day: 15 Years Smoked: 50 e-Cigarette/Vaping Use: Never Used Second Hand Smoke Exposure: Yes Advance Directives Date on File: 10/25/24 service: No Current occupational status: 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 Cognitive needs: No Hearing needs: No Vision needs: Yes Review of Systems Const Denies chills, Denies fatigue, Denies fever(s), Denies frequent falls, Denies weakness, Denies weight gain and Denies weight loss ENT Denies dizziness Card Denies chest pain, Denies leg edema, Denies lightheadedness, Denies palpitations, Denies dyspnea and Denies dyspnea on exertion Resp Denies cough, Denies dyspnea and Denies dyspnea on exertion GI Denies hematochezia Musc Denies abnormal gait, Denies muscle weakness, Denies numbness, Denies radiating pain into limb and Denies tingling Neuro Denies abnormal gait, Denies dizziness, Denies frequent falls, Denies numbness, Denies tingling and Denies weakness Endo Denies fatigue and Denies palpitations Physical Exam Vital Signs: Last Vital Signs Pulse 81 11/25/24 12:59 BP 110/62 11/25/24 12:59 BMI result Body Mass Index 20.5 Const General: cooperative, healthy appearing, comfortable and no acute distress Orientation/consciousness: patient oriented x3 HEENT Head: Yes normal to inspection Neck Neck: Yes normal visual inspection, Yes trachea midline and Yes supple Chest Chest palpation & inspection: normal inspection of the chest Resp Effort & Inspection: normal respiratory effort Auscultation: clear to auscultation bilaterally, no crackles, no rales, no rhonchi and no wheezes Cardio Jugular venous distension: no JVD Palpation: normal PMI Rate: regular rate Rhythm: regular rhythm Heart sounds: S1 normal heart sound present, S2 normal heart sound present, no click, no gallops, no murmurs and no rubs Peripheral pulses: Peripheral pulses 2+ throughout GI Inspection: Yes normal to inspection Palpation (GI): Soft to palpation Auscultation: normal bowel sounds Skin General skin exam: no rashes or lesions noted Neuro General: patient oriented x3 Extrem General: Yes normal to inspection, No no pedal edema and No calf tenderness Psych Appearance: grossly normal Mental Status: mental status grossly normal Speech and movement: Normal speech and movement present Office Procedures EKG Details: EKG today showed normal sinus rhythm, rate 81 beats per minute, [place], [place] [address]-[id number], Complete Assessment & Plan Assessment & Plan (1) Afib: Code(s): I48.91 - Unspecified atrial fibrillation Category: Medical (2) SVT (supraventricular tachycardia): Code(s): I47.10 - Supraventricular tachycardia, unspecified Category: Medical (3) Hospital discharge follow-up: Code(s): Z09 - Encounter for follow-up examination after completed treatment for conditions other than malignant neoplasm Plan Couple episodes of AFib with RVR during hospitalization and was treated with Multaq therapy. Patient also had some NSVT episodes which was treated with a adenosine. 10/06/2024-echo study showed a normal LV systolic function with an ejection fraction of 60-65% with impaired relaxation flat pattern, with mild mitral and tricuspid regurgitation. 11/11/2024-3 day Holter study showed a normal sinus rhythm with an average heart rate of 82 beats per minute, with rare episodes of rare supraventricular ectopies and ventricular ectopies. EKG today was normal sinus rhythm. Clinically stable and euvolemic. Patient still reports some palpitations with exertion as well as at rest without any anginal symptoms. Discussed about possibility of recurrences and option of investing in a [employer] mobile device to record EKGs during the times of palpitations. Discussed in detail about risk of stroke with AFib. Continue Eliquis for full anticoagulation therapy. No reported signs of bleeding or falls. H&H has improved since the left retrograde stent placement in the hospital. Discussed rhythm control approaches. Continue Multaq for now. Continue metoprolol therapy as well. Discussed in detail about the option for catheter ablation which patient is interested in. We will refer out to EP for a possible catheter ablation. Blood pressure is within normal limits. Advised heart healthy diet, complete smoking cessation, avoiding alcohol or other caffeinated beverages, med compliance, and management of vascular risk factors. Follow up in 6 months after EP consultation. In the interim, patient will call the office with any concerns or change in symptoms. This note was generated using voice recognition software. While every effort has been made to ensure accuracy and proper exhibitor sales, there may be occasional errors that could affect the content or meaning of the described symptoms. Orders: Orders AMB EKG-In Office Today I48.91 - Unspecified atrial fibrillation Referrals Cardiac Electrophysiology Referral I48.91 - Unspecified atrial fibrillation Medications: Discontinued metoprolol tartrate Discontinued Reason: Duplicate 12.5 mg (1/2 x 25 mg) PO BID 60 tabs 0RF Coding Level of Care Code Est Pt Level 4 (93994) Complex EM visit Add On G2211 Diagnoses Afib I48.91 SVT (supraventricular tachycardia) I47.10 Hospital discharge follow-up Z09 CPT Codes EKG - CPT: 06382-Ezdrxazdhdgejjtyf, Complete ([id number]) Time Spent (min) 34 Comment Time spent in reviewing the chart, test results, assessment, counseling and documentation.
[2024-11-25 12:59] VITALS: BP 110/62; PULSE 81; BMI 20.5
--- OUTSIDE RECORDS SUMMARY | 2024-11-25 13:16 | XMS_ITS | Patient Health Record ---
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 Name Role Phone Po Tae FERRER Primary Care Provider Neymar Sanders [phone] Allergies Allergen (clinical drug ingredient) Drug/Non Drug Allergy documented on EMR Reaction Allergy Type Onset Date Status tetracycline Tetracycline HCl Unknown Drug Allergy Active Darvon Unknown Drug Allergy Active Results Component Value Reference Range Notes Complete Blood Count Auto Di ff Reviewed date:12/28/2023 07:00:26 PM Interpretation: Performing Lab:[facility], [address] [place] [phone] Notes/Report: White Blood Count 5.2 4.8-10.8 X10*3/uL [...] Panel Reviewed date:12/25/2023 07:24:09 PM Interpretation: Performing Lab:[address] [phone] Notes/Report: Bilirubin Total 0.3 0.0-1.0 mg/dL Bilirubin Direct 0.1 0.0-0.5 mg/dL Aspartate Amino Transferase 19 5-31 U/L Alanine Aminotransferase 11 0-31 U/L Total Protein 6.9 6.5-8.0 g/dL Albumin Level 4.1 3.5-5.0 g/dL Alkaline Phosphatase 86 39-117 U/L Vitamin B12 Reviewed date:12/25/2023 07:24:18 PM Interpretation: Performing Lab:[address] [phone] Notes/Report: Vitamin B12 432 200-900 pg/mL NORMAL 200-900 PG/ML INDETERMINATE 160-199 PG/ML DEFICIENT < 160 PG/ML Liver Panel Reviewed date:01/23/2024 10:45:45 PM Interpretation: Performing Lab:[address] [phone] Notes/Report: Bilirubin Total 0.5 0.0-1.0 mg/dL Bilirubin Direct 0.2 0.0-0.5 mg/dL Aspartate Amino Transferase 23 5-31 U/L Alanine Aminotransferase 15 0-31 U/L Total Protein 6.6 6.5-8.0 g/dL Albumin Level 4.0 3.5-5.0 g/dL Alkaline Phosphatase 83 39-117 U/L Liver Panel Reviewed date:02/22/2024 11:20:19 PM Interpretation: Performing Lab:[facility], [address] [place] [phone] Notes/Report: Bilirubin Total 0.5 0.0-1.0 mg/dL Bilirubin Direct 0.2 0.0-0.5 mg/dL Aspartate Amino Transferase 22 5-31 U/L Alanine Aminotransferase 16 0-31 U/L Total Protein 6.7 6.5-8.0 g/dL Albumin Level 4.0 3.5-5.0 g/dL Alkaline Phosphatase 86 39-117 U/L Complete Blood Count Auto Di ff Reviewed date:03/23/2024 06:59:11 PM Interpretation: Performing Lab:[facility], [address] [place] [phone] Notes/Report: White Blood Count 3.6 4.8-10.8 X10*3/uL [...] Panel Reviewed date:03/23/2024 06:59:35 PM Interpretation: Performing Lab:[facility], [address] [place] [phone] Notes/Report: Bilirubin Total 0.3 0.0-1.0 mg/dL Bilirubin Direct 0.1 0.0-0.5 mg/dL Aspartate Amino Transferase 27 5-31 U/L Alanine Aminotransferase 17 0-31 U/L Total Protein 6.6 6.5-8.0 g/dL Albumin Level 4.0 3.5-5.0 g/dL Alkaline Phosphatase 91 39-117 U/L MAMMOGRAM DIGITAL BILATERAL SCREEN Reviewed date:03/24/2024 08:32:51 AM Interpretation:Normal Performing Lab: Notes/Report: Normal Complete Blood Count Auto Di ff Reviewed date:04/23/2024 09:32:52 AM Interpretation: Performing Lab:[facility], [address] [place] [phone] Notes/Report: White Blood Count 5.5 4.8-10.8 X10*3/uL [...] Panel Reviewed date:04/23/2024 09:33:16 AM Interpretation: Performing Lab:[address] [phone] Notes/Report: Bilirubin Total 0.4 0.0-1.0 mg/dL Bilirubin Direct 0.1 0.0-0.5 mg/dL Aspartate Amino Transferase 23 5-31 U/L Alanine Aminotransferase 16 0-31 U/L Total Protein 7.1 6.5-8.0 g/dL Albumin Level 4.3 3.5-5.0 g/dL Alkaline Phosphatase 86 39-117 U/L Complete Blood Count Auto Di ff Reviewed date:05/20/2024 04:02:01 PM Interpretation: Performing Lab:[address] [phone] Notes/Report: White Blood Count 4.9 4.8-10.8 X10*3/uL [...] Panel Reviewed date:05/20/2024 04:02:33 PM Interpretation: Performing Lab:[address] [phone] Notes/Report: Bilirubin Total 0.4 0.0-1.0 mg/dL Bilirubin Direct 0.1 0.0-0.5 mg/dL Aspartate Amino Transferase 29 5-31 U/L Alanine Aminotransferase 19 0-31 U/L Total Protein 7.0 6.5-8.0 g/dL Albumin Level 4.1 3.5-5.0 g/dL Alkaline Phosphatase 82 39-117 U/L Complete Blood Count Auto Di ff Reviewed date:06/21/2024 10:33:11 AM Interpretation: Performing Lab:[address] [phone] Notes/Report: White Blood Count 4.2 4.8-10.8 X10*3/uL [...] Panel Reviewed date:06/21/2024 10:33:28 AM Interpretation: Performing Lab:[facility], [address] [place] [phone] Notes/Report: Bilirubin Total 0.4 0.0-1.0 mg/dL Bilirubin Direct 0.1 0.0-0.5 mg/dL Aspartate Amino Transferase 24 5-31 U/L Alanine Aminotransferase 24 0-31 U/L Total Protein 7.3 6.5-8.0 g/dL Albumin Level 4.2 3.5-5.0 g/dL Alkaline Phosphatase 87 39-117 U/L Complete Blood Count Auto Di ff Reviewed date:07/22/2024 05:28:16 PM Interpretation: Performing Lab:[facility], [address] [place] [phone] Notes/Report: White Blood Count 5.1 4.8-10.8 X10*3/uL [...] Panel Reviewed date:07/26/2024 06:49:01 PM Interpretation: Performing Lab:[facility], [address] [place] [phone] Notes/Report: Sodium 139 135-145 mmol/L Potassium 3.9 [...] Panel Reviewed date:07/26/2024 06:49:13 PM Interpretation: Performing Lab:[facility], [address] [place] [phone] Notes/Report: Bilirubin Direct 0.2 0.0-0.5 mg/dL IRON PROFILE Reviewed date:07/26/2024 06:49:29 PM Interpretation: Performing Lab:[facility], [address] [place] [phone] Notes/Report: Iron 94 30-160 mcg/dL Total Iron Binding Capacity 257 228-428 mcg/d L Percent Iron Saturation 37 15-50 % Unsaturated Iron Binding 163 Lipid Panel Reviewed date:07/26/2024 06:49:37 PM Interpretation: Performing Lab:[facility], [address] [place] [phone] Notes/Report: Triglycerides 72 <150 mg/dL Desirable Triglyceride: [...] Hormone Reviewed date:07/26/2024 06:49:57 PM Interpretation: Performing Lab:[facility], [address] [place] [phone] Notes/Report: Thyroid Stimulating Hormone 1.50 0.32-4.0 uIU/ mL TSH 3rd Generation ([employer]) Complete Blood Count Auto Di ff Reviewed date:09/19/2024 08:11:23 PM Interpretation: Performing Lab:[facility], [address] [place] [phone] Notes/Report: White Blood Count 4.4 4.8-10.8 X10*3/uL [...] Panel Reviewed date:09/19/2024 08:10:44 PM Interpretation: Performing Lab:[facility], [address] [place] [phone] Notes/Report: Bilirubin Total 0.5 0.0-1.0 mg/dL Bilirubin Direct 0.2 0.0-0.5 mg/dL Aspartate Amino Transferase 30 5-31 U/L Alanine Aminotransferase 19 0-31 U/L Total Protein 6.9 6.5-8.0 g/dL Albumin Level 4.3 3.5-5.0 g/dL Alkaline Phosphatase 82 39-117 U/L Complete Blood Count Auto Di ff Reviewed date:10/20/2024 09:57:22 PM Interpretation: Performing Lab:[facility], [address] [place] [phone] Notes/Report: White Blood Count 5.2 4.8-10.8 X10*3/uL [...] Panel Reviewed date:10/20/2024 09:09:23 AM Interpretation: Performing Lab:[facility], [address] [place] [phone] Notes/Report: Bilirubin Total 0.4 0.0-1.0 mg/dL Bilirubin Direct 0.2 0.0-0.5 mg/dL Aspartate Amino Transferase 24 5-31 U/L Alanine Aminotransferase 21 0-31 U/L Total Protein 7.0 6.5-8.0 g/dL Albumin Level 4.2 3.5-5.0 g/dL Alkaline Phosphatase 78 39-117 U/L Complete Blood Count Auto Di ff Reviewed date:11/21/2024 11:37:43 PM Interpretation: Performing Lab:[facility], [address] [place] [phone] Notes/Report: White Blood Count 8.7 4.8-10.8 X10*3/uL Red Blood Count 3.41 4.20-5.50 X10*6/uL Hemoglobin 11.2 12.0-16.0 g/dl Hematocrit 35.3 37.0-47.0 % Mean Corpuscular Volume 103.5 80.0-98.0 fL Mean Corpuscular Hemoglobin 32.8 27.0-33.0 pg Mean Corpuscular HGB Conc 31.7 31.0-35.0 g/dl Red Cell Distribution Width 15.4 11.0-16.0 % Platelet Count 452 160-400 X10*3/uL Mean Platelet Volume 9.2 9.4-12.3 fL Neutrophils Percent Auto 74.6 45-73 % Imm Gran Pct Auto 0.6 0.0-0.4 % Lymphocytes Percent Auto 15.3 20-40 % Monocytes Percent Auto 6.0 2-11 % Eosinophils Percent Auto 2.3 0-4 % Basophils Percent Auto 1.2 0-2 % NRBC Pct Auto 0.0 0.0-0.2 /100WBC Neutrophils Absolute Auto 6.5 2.0-8.3 x10*3/u L Imm Gran Abs Auto 0.05 0.00-0.03 X10*3/uL Lymphocytes Absolute Auto 1.3 1.2-4.9 X10*3/u L Monocytes Absolute Auto 0.5 0.1-1.2 X10*3/uL Eosinophils Absolute Auto 0.2 0.0-0.4 X10*3/u L Basophils Absolute Auto 0.1 0.0-0.2 X10*3/uL NRBC Abs Auto 0.000 0.0-0.012 X10*3/uL Liver Panel Reviewed date:11/21/2024 11:37:10 PM Interpretation: Performing Lab:[facility], [address] [place] [phone] Notes/Report: Bilirubin Total 0.3 0.0-1.0 mg/dL Bilirubin Direct 0.1 0.0-0.5 mg/dL Aspartate Amino Transferase 18 5-31 U/L Alanine Aminotransferase 8 0-31 U/L Total Protein 7.1 6.5-8.0 g/dL Albumin Level 3.6 3.5-5.0 g/dL Alkaline Phosphatase 108 39-117 U/L Reason For Referral No Information [...] Problem Status W/U Status Risk Notes Problem 570709511 Gastro-esophagea l reflux disease without esophagitis (K21.9) Active confirmed Problem 922894047 Encounter for screening for malignant neoplasm of colon (Z12.11) Active confirmed Problem 153910190 History of adenomatous polyp of colon (Z86.010) Active confirmed Problem 04424574 Weight loss (R63.4) Active confirmed Problem 21608664 Crohn's disease of both small and large intestine without complication (K50.80) Active confirmed Problem 41059220 Crohn's disease of both small and large intestine without complications (K50.80) Active confirmed Problem Diverticular disease of colon (865930513) Diverticulosis of large intestine without perforation or abscess without bleeding (K57.30) Active confirmed Problem 084608121 Irritable bowel syndrome with diarrhea (K58.0) Active confirmed Problem 7834549 Melena (K92.1) Active confirmed Problem 190280073 Encounter for therapeutic drug level monitoring (Z51.81) Active confirmed Problem History of gastrointestinal tract bypass (330952251) Intestinal bypass and anastomosis status (Z98.0) Active confirmed Problem 97475599 Crohns disease o f both small and large intestine without complication (K50.80) Active confirmed Problem 779754543 History of colon polyps (Z86.010) Active confirmed Problem 673646403 Gallstones (K80.20) Active confirmed Problem Gastroesophageal reflux disease (397494357) GERD (gastroesophageal reflux disease) (K21.9) Active confirmed Problem 095399596 Abdominal pain, generalized (R10.84) Active confirmed Problem 20972219 Diarrhea, unspecified type (R19.7) Active confirmed Problem 726309004 Therapeutic drug monitoring (Z51.81) Active confirmed Problem 28305287 Crohn''s disease of both small and large intestine without complication (K50.80) Active confirmed Problem 85731436 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 Vital Signs Blood pressure diastolic 77 mm Hg 09/27/2024 Height 65 in 09/27/2024 Blood pressure systolic 111 mm Hg 09/27/2024 Weight 130 lbs 09/27/2024 BMI 21.63 kg/m2 09/27/2024 Encounters Encounter Location Date Provider Diagnosis [facility] [address] [place] [address] 03/22/2024 Neymar Sauer GERD (gastroesophage al reflux disease) K21.9 ; Crohn's disease of both small and large intestine without complications K50.80 and Bile salt-induced diarrhea K90.89 [facility] [address] [place] [address] 09/27/2024 Neymar Sauer Crohns disease of elkin th small and large intestine without complication K50.80 ; Gastro-esophageal reflux disease without esophagitis K21.9 ; History of adenomatous polyp of colon Z86.010 ; Diarrhea, unspecified type R19.7 and Bile salt-induced diarrhea K90.89 [facility] [address] [place] [address] 12/18/2023 Neymar Sauer [facility] [address] [place] [address] 12/21/2023 Neymar Sauer [facility] [address] [place] [phone] 02/22/2024 Neymar Sauer Crohn''s disease of both small and large intestine without complication K50.80 [facility] [address] [place] [phone] 10/28/2024 Neymar Sauer Assessments Encounter Date Diagnosis [...] Provider Name:Neymar Sauer , 03/21/2025 10:20:00 AM, [address] [place] [address], [address], [place], [address], Insurance Providers Payer Name Payer Address Payer Phone Subscriber Number Group Number Insured Name Patient Relationship to Insured Coverage Start Date Coverage End Date MEDICARE OF [place] [address] [place] [address] [id number] VIVIAN BUNN Self - patient is the insured [employer] CLAIMS [address] [place] [address] [id number] VIVIAN BUNN Self - patient is [...] the area of the femoral neck Denies PR,DM,CVA,Lung disease,renal dise ase Anxiety GERD--EGD in 04/2007 [...] Leahy 04/17/2015 Removed basal call carcinoma from druze Dec 2012 Cyst behind right ear removed November 2012 BTL Benign breast biopsy Crohn's disease in 1989 with right ileoc olectomy with Dr. Lima
== END 2024-11-25 13:44 | disposition home or self-care (01) ==
LOC: HO.HCS 12:41
PROVIDERS: PCP Internal Medicine
DX: I48.91 Unspecified atrial fibrillation (principal); I47.10 Supraventricular tachycardia, unspecified; Z09 Encounter for follow-up examination after completed treatment for conditions other than malignant neoplasm
CPT/HCPCS: 93010; 99214; G2211

== ENCOUNTER → 2024-11-25 12:41 | Outpatient (BNVA) | payer MEDICARE, SELFPAY | PROVIDERS: PCP Internal Medicine | DX: Z09 Encounter for follow-up examination after completed treatment for conditions other than malignant neoplasm (principal); I48.91 Unspecified atrial fibrillation; I47.10 Supraventricular tachycardia, unspecified | CPT/HCPCS: 93005; 99212 ==

== ENCOUNTER 2024-11-30 09:04 | Outpatient (AMB) | payer MEDICARE, SELFPAY ==
--- NOTE | 2024-11-30 09:15 | A.OFFVIS_ITS ---
Intake Visit Reasons: stent removal Intake Note: Patient is present for STENT REMOVAL Urology Medication:VITAMIN B12,VITAMIN B6 Antibiotic Allergy:DOXYCYCLINE,TETRACYCLINE Blood Thinner:APIXABAN Thiokol Operator Required: No Allergies Darvon Allergy (Intermediate, Verified 11/30/24 09:17) oral swelling Doxycycline Hyclate Allergy (Intermediate, Verified 11/30/24 09:17) diarrhea, severe diarrhea tetracycline (TETRACYCLINE) Allergy (Intermediate, Verified 11/30/24 09:17) Itching HPI Comments Details: Vivian is a pleasant female. She is a patient of Dr. De La Vega. She is seen for the following urologic conditions - nephrolithiasis - pyelonephritis Here for left side stent removal Admission with pyelonephritis from stone passage On imaging has 6 mm stone within left kidney Recommend ESWL to remove stone Will place on vitamin-C and methenamine to help with chronic inflammation [facility] Medical History (Updated 11/30/24 @ 10:01 by Eliazar Mcfarlane MD) Afib Cellulitis and abscess of other specified site Osteoporosis Nicotine dependence, cigarettes, uncomplicated Breast cancer screening by mammogram Lip abscess Palpitations Flank pain Basal cell carcinoma Peptic ulcer disease Renal calculi Vitamin D deficiency Impaired glucose tolerance Anxiety and depression Anemia Asthma GERD (gastroesophageal reflux disease) Crohn's disease Surgical History History of tooth extraction History of surgical removal of ganglion cyst Hx of lithotripsy Hx of dilation and curettage Hx of cystoscopy History of hysteroscopy History of colonoscopy History of cholecystectomy Hx of appendectomy H/O tubal ligation History of lumpectomy of left breast S/P small bowel resection Social History Household Members: Significant Other Housing: House Alcohol intake: current Alcohol intake frequency: does not drink Patient Tobacco Use Status: Never used Tobacco Tobacco use type: Cigarette Cigarette Packs Per Day: 1 Cigarettes Per Day: 15 Years Smoked: 50 e-Cigarette/Vaping Use: Never Used Second Hand Smoke Exposure: Yes Advance Directives Date on File: 10/25/24 service: No Current occupational status: 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 Cognitive needs: No Hearing needs: No Vision needs: Yes Review of Systems Const Denies chills and Denies fever(s) Card Reports no additional complaints and Denies syncope Resp Denies cough GI Denies abdominal pain and Denies heartburn Reports as per HPI and Denies change in libido Neuro Denies syncope Psych Denies change in libido Endo Denies change in libido Physical Exam Const General: cooperative, healthy appearing, comfortable and no acute distress Orientation/consciousness: patient oriented x3 HEENT Face and sinus: Yes normal facial exam Mouth: moist mucous membranes Neck Neck: Yes normal visual inspection, Yes full ROM and Yes trachea midline Chest Chest palpation & inspection: normal inspection of the chest Resp Effort & Inspection: normal respiratory effort, able to speak in complete sentences and no respiratory distress GI Inspection: Yes normal to inspection Back/Spine/Pelvis Cervical Spine: normal cervical lordosis Thoracic/Lumbar Spine: thoracic and lumbar spine normal to inspection Skin General skin exam: no rashes or lesions noted Neuro General: patient oriented x3, gait normal, tone normal and moves all extremities Extrem General: Yes normal to inspection and Yes capillary refill normal Office Procedures Cystoscopy Consent Discussed risk and benefit or proposed procedure with the patient. Information consent for procedure given to the patient. Discussed technical aspects, risks, benefits and alternatives in full. Addressed all of the patient's questions and concerns regarding the procedure. The patient demonstrated knowledge and understanding. They wish to proceed with this procedure. Preparation The patient was prepped in the usual manner. A sharples machine operator was present and in the room. Genitalia was prepped with betadine solution in a sterile manner. Lidocaine Jelly 2% was placed into the urethra and 16Fr flexible Olympus cystoscope was inserted into the meatus after adequate lubrication. Procedure A well lubricated 16 [place] Of [place] cystoscope was placed No abnormality noted of urethra during placement Indwelling stent seen within bladder emerging from left ureteric orifices The stent was grasped with a 3 prong grasper and removed without difficulty The patient tolerated the procedure well [id number] with stent removal DISPOSABLE SCOPE URO-G FLEXIBLE SCOPE Procedure code (CPT) selection complete Office Meds lidocaine HCl 2 % mucosal jelly in applicator Performing Provider: Eliazar Mcfarlane MD [place] [facility] Administered by: Elisha Gupta RN on 11/30/24 09:35 Dose Route Admin Location Dispensed Lot Number Expiration Date [facility] Records And Tape Recordings Engineer 10 mL intra-urethral 10 mL nitrofurantoin monohydrate/macrocrystals 100 mg capsule Performing Provider: Eliazar Mcfarlane MD [place] [facility] Administered by: Elisha Gupta RN on 11/30/24 09:35 Dose Route Admin Location Dispensed Lot Number Expiration Date [employer] And T[employer] Recordings Engineer 100 mg PO 1 cap Results AMB Urinalysis, Automated UA Leukoctes 500 Ranjeet/uL Last Edit by KRUNAL Ryder on 11/30/24 09:30 UA Nitrite Negative Last Edit by KRUNAL Ryder on 11/30/24 09:30 UA Urobilinogen 0.2 mg/dL Last Edit by KRUNAL Ryder on 11/30/24 09:3 0 UA Protein 15 mg/dL Last Edit by KRUNAL Ryder on 11/30/24 09:30 UA pH 6.0 Last Edit by KRUNAL Ryder on 11/30/24 09:30 UA Blood 80 Darrin/uL Last Edit by KRUNAL Ryder on 11/30/24 09:30 UA Specific [place] 1.005 Last Edit by KRUNAL Ryder on 11/30/24 09: 30 UA Ketone Negative Last Edit by KRUNAL Ryder on 11/30/24 09:30 UA Bilirubin 0 mg/dL Last Edit by KRUNAL Ryder on 11/30/24 09:30 UA Glucose 0 mg/dL Last Edit by KRUNAL Ryder on 11/30/24 09:30 Results Reviewed Results Reviewed: Laboratory Last Values Urine pH (Auto) 6.0 11/30/24 09:30 Specific [place] (Auto) 1.005 11/30/24 09:30 Urine Protein (Auto) 15 mg/dL 11/30/24 09:30 Glucose (UA)(Auto) 0 mg/dL 11/30/24 09:30 Urine Ketones (Auto) Negative 11/30/24 09:30 Urine Blood (Auto) 80 Darrin/uL 11/30/24 09:30 Urine Nitrite (Auto) Negative 11/30/24 09:30 Urine Bilirubin (Auto) 0 mg/dL 11/30/24 09:30 Urine Urobilinogen (Auto) 0.2 mg/dL 11/30/24 09:30 Leukocyte Esterase (Auto) 500 Ranjeet/uL 11/30/24 09:30 Assessment & Plan Assessment & Plan (1) Renal calculi: Code(s): N20.0 - Calculus of kidney Category: Medical Plan Extracorporeal Shock Wave Lithotripsy We discussed the nature of the decision and reasonable alternatives for performing the above surgery. Interventions include chemical dissolution, ESWL, ureteroscopy with laser lithotripsy and stent placement, PCNL. Options such as medical therapy were discussed. The relative uncertainties and benefits related to each alternate procedure were adequately discussed. General surgical risks including, but not limited to, pain, bleeding, infection, myocardial infarction, pulmonary embolus, deep vein thrombosis and cerebrovascular accident which may result in further hospitalization were discussed. Full disclosure of the procedure as well as all major risks, benefits and complications were discussed including but not limited to risks of bleeding, injury to the kidney with hematoma or anne-hematoma, failure to fragments stone, potential for ureteric obstruction from stone passage and need for secondary procedures. There is a small long-term risk of hypertension and a question gregory of diabetes. Success rate of fragmentation and passage is approximately 70- 75%. This is compared to the risks and benefits for ureteroscopy which has a higher success rate but is a more invasive procedure. The success rate of the procedure was discussed. Success of the procedure in the short-term does not necessarily guarantee that long-term success will be maintained. Suitable follow up will need to be maintained. The patient showed understanding of the discussion as well as the typical recovery time, and the outpatient nature of this procedure. Opportunity was given for questions. Repeat-back protocol used to confirm understanding. They wish to proceed with left ESWL Orders: Orders AMB Urinalysis Automated Today Z13.9 - Encounter for screening, unspecified AMB Cystoscopy Today Z87.442 - Personal history of urinary calculi Medications: New ascorbic acid (vitamin C) 1,000 mg PO DAILY 90 tabs 0RF 90 days R39.9 - Unspecified symptoms and signs involving the genitourinary system methenamine hippurate 1 g PO DAILY 90 tabs 0RF 90 days R39.9 - Unspecified symptoms and signs involving the genitourinary system Patient Instructions: This note is constructed using voice recognition software. While every effort has been made to ensure accuracy greeter guest services errors may have been included. Imaging studies, laboratory and physical exam results were discussed and reviewed in detail. No major barriers to patient understanding were identified. An opportunity to ask questions regarding the treatment plan was provided. All questions were answered. The patient expressed understanding and agreement with the above treatment plan. The patient is aware they should contact our office by phone for worsening of their current condition or the appearance of new urologic symptoms. Compliance is encouraged with any medications and followup testing that is ordered. It is a privilege to participate in the urologic care of your patient. If you have any questions or concerns regarding treatment for the above conditions, or other urologic issues, please do not hesitate to contact me. The office telephone contact is [phone]. Sincerely, Dr Eliazar Mcfarlane MD, [facility] - Urology Compassionate Specialist Care for the Genitourinary System Coding Level of Care Code Est Pt Level 4 (46166) Diagnoses Renal calculi N20.0 CPT Codes Cystoscopy - CPT: 58706-[id number] with stent removal ([id number])
--- OUTSIDE RECORDS SUMMARY | 2024-11-30 09:15 | XMS_ITS | Patient Health Record ---
Author Organization [facility] Address [address] [place] [address] Care Team Providers Care Ui Software Engineer Name Role Phone Po Tae FERRER Primary Care Provider Neymar Sanders [phone] Allergies Allergen (clinical drug ingredient) Drug/Non Drug Allergy documented on EMR Reaction Allergy Type Onset Date Status tetracycline Tetracycline HCl Unknown Drug Allergy Active Darvon Unknown Drug Allergy Active Results Component Value Reference Range Notes Complete Blood Count Auto Di ff Reviewed date:12/28/2023 07:00:26 PM Interpretation: Performing Lab:[facility], [address] [place] [phone] Notes/Report: White Blood Count 5.2 4.8-10.8 X10*3/uL [...] Panel Reviewed date:12/25/2023 07:24:09 PM Interpretation: Performing Lab:[address] [phone] Notes/Report: Bilirubin Total 0.3 0.0-1.0 mg/dL Bilirubin Direct 0.1 0.0-0.5 mg/dL Aspartate Amino Transferase 19 5-31 U/L Alanine Aminotransferase 11 0-31 U/L Total Protein 6.9 6.5-8.0 g/dL Albumin Level 4.1 3.5-5.0 g/dL Alkaline Phosphatase 86 39-117 U/L Vitamin B12 Reviewed date:12/25/2023 07:24:18 PM Interpretation: Performing Lab:[address] [phone] Notes/Report: Vitamin B12 432 200-900 pg/mL NORMAL 200-900 PG/ML INDETERMINATE 160-199 PG/ML DEFICIENT < 160 PG/ML Liver Panel Reviewed date:01/23/2024 10:45:45 PM Interpretation: Performing Lab:[address] [phone] Notes/Report: Bilirubin Total 0.5 0.0-1.0 mg/dL Bilirubin Direct 0.2 0.0-0.5 mg/dL Aspartate Amino Transferase 23 5-31 U/L Alanine Aminotransferase 15 0-31 U/L Total Protein 6.6 6.5-8.0 g/dL Albumin Level 4.0 3.5-5.0 g/dL Alkaline Phosphatase 83 39-117 U/L Liver Panel Reviewed date:02/22/2024 11:20:19 PM Interpretation: Performing Lab:[facility], [address] [place] [phone] Notes/Report: Bilirubin Total 0.5 0.0-1.0 mg/dL Bilirubin Direct 0.2 0.0-0.5 mg/dL Aspartate Amino Transferase 22 5-31 U/L Alanine Aminotransferase 16 0-31 U/L Total Protein 6.7 6.5-8.0 g/dL Albumin Level 4.0 3.5-5.0 g/dL Alkaline Phosphatase 86 39-117 U/L Complete Blood Count Auto Di ff Reviewed date:03/23/2024 06:59:11 PM Interpretation: Performing Lab:[facility], [address] [place] [phone] Notes/Report: White Blood Count 3.6 4.8-10.8 X10*3/uL [...] Panel Reviewed date:03/23/2024 06:59:35 PM Interpretation: Performing Lab:[facility], [address] [place] [phone] Notes/Report: Bilirubin Total 0.3 0.0-1.0 mg/dL Bilirubin Direct 0.1 0.0-0.5 mg/dL Aspartate Amino Transferase 27 5-31 U/L Alanine Aminotransferase 17 0-31 U/L Total Protein 6.6 6.5-8.0 g/dL Albumin Level 4.0 3.5-5.0 g/dL Alkaline Phosphatase 91 39-117 U/L MAMMOGRAM DIGITAL BILATERAL SCREEN Reviewed date:03/24/2024 08:32:51 AM Interpretation:Normal Performing Lab: Notes/Report: Normal Complete Blood Count Auto Di ff Reviewed date:04/23/2024 09:32:52 AM Interpretation: Performing Lab:[facility], [address] [place] [phone] Notes/Report: White Blood Count 5.5 4.8-10.8 X10*3/uL [...] Panel Reviewed date:04/23/2024 09:33:16 AM Interpretation: Performing Lab:[address] [phone] Notes/Report: Bilirubin Total 0.4 0.0-1.0 mg/dL Bilirubin Direct 0.1 0.0-0.5 mg/dL Aspartate Amino Transferase 23 5-31 U/L Alanine Aminotransferase 16 0-31 U/L Total Protein 7.1 6.5-8.0 g/dL Albumin Level 4.3 3.5-5.0 g/dL Alkaline Phosphatase 86 39-117 U/L Complete Blood Count Auto Di ff Reviewed date:05/20/2024 04:02:01 PM Interpretation: Performing Lab:[address] [phone] Notes/Report: White Blood Count 4.9 4.8-10.8 X10*3/uL [...] Panel Reviewed date:05/20/2024 04:02:33 PM Interpretation: Performing Lab:[address] [phone] Notes/Report: Bilirubin Total 0.4 0.0-1.0 mg/dL Bilirubin Direct 0.1 0.0-0.5 mg/dL Aspartate Amino Transferase 29 5-31 U/L Alanine Aminotransferase 19 0-31 U/L Total Protein 7.0 6.5-8.0 g/dL Albumin Level 4.1 3.5-5.0 g/dL Alkaline Phosphatase 82 39-117 U/L Complete Blood Count Auto Di ff Reviewed date:06/21/2024 10:33:11 AM Interpretation: Performing Lab:[address] [phone] Notes/Report: White Blood Count 4.2 4.8-10.8 X10*3/uL [...] Panel Reviewed date:06/21/2024 10:33:28 AM Interpretation: Performing Lab:[facility], [address] [place] [phone] Notes/Report: Bilirubin Total 0.4 0.0-1.0 mg/dL Bilirubin Direct 0.1 0.0-0.5 mg/dL Aspartate Amino Transferase 24 5-31 U/L Alanine Aminotransferase 24 0-31 U/L Total Protein 7.3 6.5-8.0 g/dL Albumin Level 4.2 3.5-5.0 g/dL Alkaline Phosphatase 87 39-117 U/L Complete Blood Count Auto Di ff Reviewed date:07/22/2024 05:28:16 PM Interpretation: Performing Lab:[facility], [address] [place] [phone] Notes/Report: White Blood Count 5.1 4.8-10.8 X10*3/uL [...] Panel Reviewed date:07/26/2024 06:49:01 PM Interpretation: Performing Lab:[facility], [address] [place] [phone] Notes/Report: Sodium 139 135-145 mmol/L Potassium 3.9 [...] Panel Reviewed date:07/26/2024 06:49:13 PM Interpretation: Performing Lab:[facility], [address] [place] [phone] Notes/Report: Bilirubin Direct 0.2 0.0-0.5 mg/dL IRON PROFILE Reviewed date:07/26/2024 06:49:29 PM Interpretation: Performing Lab:[facility], [address] [place] [phone] Notes/Report: Iron 94 30-160 mcg/dL Total Iron Binding Capacity 257 228-428 mcg/d L Percent Iron Saturation 37 15-50 % Unsaturated Iron Binding 163 Lipid Panel Reviewed date:07/26/2024 06:49:37 PM Interpretation: Performing Lab:[facility], [address] [place] [phone] Notes/Report: Triglycerides 72 <150 mg/dL Desirable Triglyceride: [...] Hormone Reviewed date:07/26/2024 06:49:57 PM Interpretation: Performing Lab:[facility], [address] [place] [phone] Notes/Report: Thyroid Stimulating Hormone 1.50 0.32-4.0 uIU/ mL TSH 3rd Generation ([employer]) Complete Blood Count Auto Di ff Reviewed date:09/19/2024 08:11:23 PM Interpretation: Performing Lab:[facility], [address] [place] [phone] Notes/Report: White Blood Count 4.4 4.8-10.8 X10*3/uL [...] Panel Reviewed date:09/19/2024 08:10:44 PM Interpretation: Performing Lab:[facility], [address] [place] [phone] Notes/Report: Bilirubin Total 0.5 0.0-1.0 mg/dL Bilirubin Direct 0.2 0.0-0.5 mg/dL Aspartate Amino Transferase 30 5-31 U/L Alanine Aminotransferase 19 0-31 U/L Total Protein 6.9 6.5-8.0 g/dL Albumin Level 4.3 3.5-5.0 g/dL Alkaline Phosphatase 82 39-117 U/L Complete Blood Count Auto Di ff Reviewed date:10/20/2024 09:57:22 PM Interpretation: Performing Lab:[facility], [address] [place] [phone] Notes/Report: White Blood Count 5.2 4.8-10.8 X10*3/uL [...] Panel Reviewed date:10/20/2024 09:09:23 AM Interpretation: Performing Lab:[facility], [address] [place] [phone] Notes/Report: Bilirubin Total 0.4 0.0-1.0 mg/dL Bilirubin Direct 0.2 0.0-0.5 mg/dL Aspartate Amino Transferase 24 5-31 U/L Alanine Aminotransferase 21 0-31 U/L Total Protein 7.0 6.5-8.0 g/dL Albumin Level 4.2 3.5-5.0 g/dL Alkaline Phosphatase 78 39-117 U/L Complete Blood Count Auto Di ff Reviewed date:11/21/2024 11:37:43 PM Interpretation: Performing Lab:[facility], [address] [place] [phone] Notes/Report: White Blood Count 8.7 4.8-10.8 X10*3/uL [...] Panel Reviewed date:11/21/2024 11:37:10 PM Interpretation: Performing Lab:[facility], [address] [place] [phone] Notes/Report: Bilirubin Total 0.3 0.0-1.0 mg/dL Bilirubin [...] Problem Status W/U Status Risk Notes Problem 875902116 Gastro-esophagea l reflux disease without esophagitis (K21.9) Active confirmed Problem 222325749 Encounter for screening for malignant neoplasm of colon (Z12.11) Active confirmed Problem 519646709 History of adenomatous polyp of colon (Z86.010) Active confirmed Problem 29555402 Weight loss (R63.4) Active confirmed Problem 46003025 Crohn's disease of both small and large intestine without complication (K50.80) Active confirmed Problem 29926197 Crohn's disease of both small and large intestine without complications (K50.80) Active confirmed Problem Diverticular disease of colon (561061868) Diverticulosis of large intestine without perforation or abscess without bleeding (K57.30) Active confirmed Problem 894334646 Irritable bowel syndrome with diarrhea (K58.0) Active confirmed Problem 5174574 Melena (K92.1) Active confirmed Problem 462936247 Encounter for therapeutic drug level monitoring (Z51.81) Active confirmed Problem History of gastrointestinal tract bypass (956086866) Intestinal bypass and anastomosis status (Z98.0) Active confirmed Problem 89898796 Crohns disease o f both small and large intestine without complication (K50.80) Active confirmed Problem 365644350 History of colon polyps (Z86.010) Active confirmed Problem 548619537 Gallstones (K80.20) Active confirmed Problem Gastroesophageal reflux disease (670112279) GERD (gastroesophageal reflux disease) (K21.9) Active confirmed Problem 166503050 Abdominal pain, generalized (R10.84) Active confirmed Problem 33110854 Diarrhea, unspecified type (R19.7) Active confirmed Problem 872387547 Therapeutic drug monitoring (Z51.81) Active confirmed Problem 47428326 Crohn''s disease of both small and large intestine without complication (K50.80) Active confirmed Problem 65387164 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 Vital Signs Blood pressure diastolic 77 mm Hg 09/27/2024 Height 65 in 09/27/2024 Blood pressure systolic 111 mm Hg 09/27/2024 Weight 130 lbs 09/27/2024 BMI 21.63 kg/m2 09/27/2024 Encounters Encounter Location Date Provider Diagnosis [facility] [address] [place] [address] 03/22/2024 Neymar Sauer GERD (gastroesophage al reflux disease) K21.9 ; Crohn's disease of both small and large intestine without complications K50.80 and Bile salt-induced diarrhea K90.89 [facility] [address] [place] [address] 09/27/2024 Neymar Sauer Crohns disease of elkin th small and large intestine without complication K50.80 ; Gastro-esophageal reflux disease without esophagitis K21.9 ; History of adenomatous polyp of colon Z86.010 ; Diarrhea, unspecified type R19.7 and Bile salt-induced diarrhea K90.89 [facility] [address] [place] [address] 12/18/2023 Neymar Sauer [facility] [address] [place] [address] 12/21/2023 Neymar Sauer [facility] [address] [place] [phone] 02/22/2024 Neymar Sauer Crohn''s disease of both small and large intestine without complication K50.80 [facility] [address] [place] [address] 10/28/2024 Neymar Sauer Assessments Encounter Date Diagnosis [...] again for allowing me to participate in Vivain's care. I shall continue to keep you [...] PROFILE 07/18/2016 LIVER PROFILE 01/03/2014 LIVER PROFILE 12/22/2022 LIVER [...] w DIFF 06/02/2018 CBC w DIFF 06/29/2017 SED RATE (ESR) [...] Provider Name:Neymar Sauer , 03/21/2025 10:20:00 AM, [address] [place] [address], [address], [place], [address], Insurance Providers Payer Name Payer Address Payer Phone Subscriber Number Group Number Insured Name Patient Relationship to Insured Coverage Start Date Coverage End Date MEDICARE OF [place] [address] [facility] [place] [address] [id number] VIVIAN BUNN Self - patient is the insured MED[employer] ATT[employer] CLAIMS [address] [place] [address] [id number] VIVIAN BUNN Self - patient is the insured Medical (General) History Medical History History ICD Code Crohn's disease of SI and co sea-diagnosed in the early s and had a right ileocolectomy with Dr. Lmia in approx. 1989- colonoscopy in 06/2010 with [...] the area of the femoral neck Denies IN,DM,CVA,Lung disease,renal dise ase Anxiety GERD--EGD in 04/2007 [...] Leahy 04/17/2015 Removed basal call carcinoma from uatsdin Dec 2012 Cyst behind right ear removed November 2012 BTL Benign breast biopsy Crohn's disease in 1989 with right ileoc olectomy with Dr. Lima
== END 2024-11-30 10:31 | disposition home or self-care (01) ==
LOC: HO.HUSH 09:04
PROVIDERS: PCP Internal Medicine; Visit Provider Urology
DX: N20.0 Calculus of kidney (principal); Z96.0 Presence of urogenital implants; Z13.9 Encounter for screening, unspecified
CPT/HCPCS: 52310; 99214

== ENCOUNTER → 2024-11-30 09:04 | Outpatient (BNVA) | payer MEDICARE, SELFPAY | PROVIDERS: PCP Internal Medicine; Visit Provider Urology | DX: N20.0 Calculus of kidney (principal) | CPT/HCPCS: 52310; 81003; 99212 ==

== ENCOUNTER 2024-12-14 06:43 | Day surgery (SDC) | payer MEDICARE, SELFPAY ==
[2024-12-12 09:00] VITALS: BMI 22.3
--- NOTE | 2024-12-13 13:05 | P.CONAN_ITS ---
Documented by User: Katharine Spicer NP 12/13/24 13:13 HPI - Anesthesia Eval Consult details Narrative: 69 yr old female for left sided lithotripsy ESW. Afib: on eliquis (cardiology cleared for 5 day hold), multaq [facility] Active Problems Active Problems: All Active Problems Renal calculi (Acute) SVT (supraventricular tachycardia) (Acute) Hypokalemia (Acute) Anemia (Acute) Pleural effusion (Acute) Afib (Acute) Pyelonephritis (Acute) Osteoporosis (Acute) Nicotine dependence, cigarettes, uncomplicated (Acute) UTI symptoms (Acute) Low back pain (Acute) Colon cancer screening (Acute) Generalized anxiety disorder (Acute) Ganglion cyst of volar aspect of left wrist (Acute) Mass of left wrist (Acute) Cellulitis of abdominal wall (Acute) Subcutaneous nodule of abdominal wall (Acute) Ganglion cyst (Acute) Post-menopausal (Acute) History of renal calculi (Acute) Hyperoxaluria (Acute) Abnormal ultrasound of endometrium (Acute) Microscopic hematuria (Acute) Cystic endometrial hyperplasia (Acute) Facial abscess (Acute) Post-menopausal bleeding (Acute) Overactive bladder (Acute) B12 deficiency (Acute) Impaired glucose tolerance (Acute) Anxiety and depression (Acute) Asthma (Acute) GERD (gastroesophageal reflux disease) (Acute) Past Medical History Medical History Afib Cellulitis and abscess of other specified site Osteoporosis Nicotine dependence, cigarettes, uncomplicated Breast cancer screening by mammogram Lip abscess Palpitations Flank pain Basal cell carcinoma Peptic ulcer disease Renal calculi Vitamin D deficiency Impaired glucose tolerance Anxiety and depression Anemia Asthma GERD (gastroesophageal reflux disease) Crohn's disease Family History Family history of problems with anesthesia: No Surgical History Surgical History History of tooth extraction History of surgical removal of ganglion cyst Hx of lithotripsy Hx of dilation and curettage Hx of cystoscopy History of hysteroscopy History of colonoscopy History of cholecystectomy Hx of appendectomy H/O tubal ligation History of lumpectomy of left breast S/P small bowel resection History of Problems with Anesthesia: No Social History Social History Household Members: Significant Other Housing: House Alcohol intake: current Alcohol intake frequency: holidays/special occasions only Patient Tobacco Use Status: Current everyday Tobacco user Tobacco use type: Cigarette Cigarette Packs Per Day: 1 Cigarettes Per Day: 5 Years Smoked: 50 e-Cigarette/Vaping Use: Never Used Second Hand Smoke Exposure: Yes Use of substances other than those prescribed or required for medical reasons: No Have you been hit, kicked, punched, or otherwise hurt by someone within the past year? 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 Cognitive needs: No Hearing needs: No Vision needs: Yes Meds Allergies Allergy/AdvReac Type Severity Reaction Status Date / Time Darvon Allergy Intermediate oral Verified 11/30/24 09:17 swelling Doxycycline Hyclate Allergy Intermediate diarrhea, Verified 11/30/24 09:17 severe diarrhea tetracycline (TETRACYCLINE) Allergy Intermediate Itching Verified 11/30/24 09:17 Home Medications ?Medication ?Instructions ?Recorded ?Confirmed ?Last Taken ?Type azathioprine 50 mg tablet 100 mg PO DAILY 04/24/2004/01/22 History omeprazole 20 mg capsule,delayed 20 mg PO DAILY@0630 1 06/24/19 12/14/24 7 Days Ago History release ~10/18/24 betamethasone dipropionate 0.05 % 1 appl topical DAILY PRN Dry Skin 06/07/20 0 12/14/24 04/01/22 History topical cream dicyclomine 10 mg capsule 20 mg PO QID PRN abdominal 1 06/30/20 12/14/24 04/01/22 History cramping or discomfort albuterol sulfate 90 mcg/actuation 1 inh inhalation QI D PRN Shortness 10/25/24 12/14/24 Unknown History aerosol inhaler Of Breath metoprolol tartrate 25 mg tablet 12.5 mg PO BID 12/14/24 12/14/24 History Exam Height,Weight and Vital Signs: Height 5 ft 5 in Weight 60.781 kg Narrative Narrative: EK10/2024 NSR, rate 81 Echo: 09/2024 Conclusions: - 1. Normal LV ejection fraction of 60 65% with impaired relaxation filling pattern 2. Mild mitral and tricuspid regurgitation 3. Normal RV systolic pressure 4. No pericardial effusion Assessment and Plan Final Anesthetic Review Family History of Problems with Anesthesia: No History of Problems with Anesthesia: No Documented by User: Yeny Oneill MD 12/14/24 08:14 [facility] Past Medical History Medical History Afib Cellulitis and abscess of other specified site Osteoporosis Nicotine dependence, cigarettes, uncomplicated Breast cancer screening by mammogram Lip abscess Palpitations Flank pain Basal cell carcinoma Peptic ulcer disease Renal calculi Vitamin D deficiency Impaired glucose tolerance Anxiety and depression Anemia Asthma GERD (gastroesophageal reflux disease) Crohn's disease Surgical History Surgical History History of tooth extraction History of surgical removal of ganglion cyst Hx of lithotripsy Hx of dilation and curettage Hx of cystoscopy History of hysteroscopy History of colonoscopy History of cholecystectomy Hx of appendectomy H/O tubal ligation History of lumpectomy of left breast S/P small bowel resection Social History Social History Household Members: Significant Other Housing: House Alcohol intake: current Alcohol intake frequency: holidays/special occasions only Patient Tobacco Use Status: Current everyday Tobacco user Tobacco use type: Cigarette Cigarette Packs Per Day: 1 Cigarettes Per Day: 5 Years Smoked: 50 e-Cigarette/Vaping Use: Never Used Second Hand Smoke Exposure: Yes Use of substances other than those prescribed or required for medical reasons: No Have you been hit, kicked, punched, or otherwise hurt by someone within the past year? 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 Cognitive needs: No Hearing needs: No Vision needs: Yes Meds Allergies Allergy/AdvReac Type Severity Reaction Status Date / Time Darvon Allergy Intermediate oral Verified 11/30/24 09:17 swelling Doxycycline Hyclate Allergy Intermediate diarrhea, Verified 11/30/24 09:17 severe diarrhea tetracycline (TETRACYCLINE) Allergy Intermediate Itching Verified 11/30/24 09:17 Home Medications ?Medication ?Instructions ?Recorded ?Confirmed ?Last Taken ?Type azathioprine 50 mg tablet 100 mg PO DAILY 04/24/2004/01/22 History omeprazole 20 mg capsule,delayed 20 mg PO DAILY@0630 1 06/24/19 12/14/24 7 Days Ago History release ~10/18/24 betamethasone dipropionate 0.05 % 1 appl topical DAILY PRN Dry Skin 06/07/20 12/14/24 04/01/22 History topical cream dicyclomine 10 mg capsule 20 mg PO QID PRN abdominal 1 06/30/20 12/14/24 04/01/22 History cramping or discomfort albuterol sulfate 90 mcg/actuation 1 inh inhalation QI D PRN Shortness 10/25/24 12/14/24 Unknown History aerosol inhaler Of Breath metoprolol tartrate 25 mg tablet 12.5 mg PO BID 12/14/24 12/14/24 History Exam Airway Mallampati Class: II TM Dist: >3cm Neck ROM: Limited Heart: afib Lungs: cta Assessment and Plan Assessment Anesthesia Assessment: Anesthesia Plan Discussed and Chart Reviewed Final Anesthetic Review NPO: Yes ASA Class: III Final Preanesthetic Review: No Changes in Pt Med Stat, Meds/Allgs Chart Reviewed, Consent Obtained/Reviewed and Anes Risks/Benef Reviewed Patient Risk: Intermediate Procedure Risk: Low Anesthetic Plan Anesthetic Plan: GA and MAC: Disposition: Standard PACU
--- NOTE | ~2024-12-14 | XR_ITS ---
EXAMINATION: XR ABDOMEN KUB CLINICAL INDICATION: stones COMPARISON: April 02, 2022. TECHNIQUE: AP view of the abdomen. FINDINGS: There is a 3 mm calcification overlapping the right kidney shadow. There is gas throughout nondilated intestine. No air-fluid levels. Sutures in the right lower hemiabdomen overlapping the iliac crest probably related to the right hemicolon. The liver shadow extends below the rib cage. Vascular clips right upper quadrant abdomen. Multilevel lumbar spondylosis with a levoconvex curvature. Degenerative changes in the symphysis pubis. XR/XR KUB IMPRESSION: Probable 3 mm nephrolithiasis, right kidney. Status post cholecystectomy. Status post bowel surgery right hemicolon. Electronically signed by: Pollo Vidal MD 12/14/2024 07:47 AM EDT
[2024-12-14 07:51] VITALS: BP 132/69; PULSE 76; RESP 12; TEMP 36.6; O2SAT 100; BMI 20.2
[2024-12-14] MEDS: Lactated Ringers 1,000 ML 100 ML IVCONT (07:57)
--- NOTE | 2024-12-14 08:13 | MHC.SHP ---
Pre-Procedural Eval Section A - 24 Hr Update-Section A only Date of Service: 12/14/24 The patient is an INPATIENT: No Changes since office visit: No Cold of Flu in the past 2 weeks, No New Medical Problems, No Changes in Medication and No Patient answered all questions The patient has been examined within 24 hours of the surgical procedure. The History & Physical has been completed within 30 days and I have reviewed it.: Yes Section B - Complete if H&P > 30 days Chief Complaint: Calculus of kidney Allergies: Allergies Allergy/AdvReac Type Severity Reaction Status Date / Time Darvon Allergy Intermediate oral Verified 11/30/24 09:17 swelling Doxycycline Hyclate Allergy Intermediate diarrhea, Verified 11/30/24 09:17 severe diarrhea tetracycline (TETRACYCLINE) Allergy Intermediate Itching Verified 11/30/24 09:17 Review of Systems Sugical H&P ROS: Negative: Constitution, Cardiovascular, Respiratory, Neurological, Psychiatric, Hem-Onc, Allergic/Immunologic, Gastrointestinal, Genitourinary, Musculoskeletal, Integumentary, Endocrine and Eyes/Ears/Nose/Throat Exam Surgical H&P Exam: Normal: HEENT, Normal: Heart, Normal: Lungs, Normal: Extremities, Normal: Abdomen, Normal: Skin and Normal: Neurological Plan Diagnosis/Plan: Unchanged (left esw 6mm) I have reviewed the history and physical and performed a pertinent physical examination on my patient. No changes have occurred unless specified. Time Spent With Patient Time: Total time managing care of this patient today ____ minutes.
--- NOTE | 2024-12-14 09:20 | W.PM.OPN ---
Operative Note Operative Note Date of Service: 12/14/24 Narrative: PreOperative Diagnosis: left Renal stones Post Operative Diagnosis: left Renal stones Procedure: left ESWL Surgeon: Dr Eliazar Mcfarlane Anesthesia: mac/sedation Indications for procedure: The patient understands ESWL may be a staged procedure and subsequent intervention may be required based on imaging after ESWL. Quoted stone clearance rates for a solitary procedure are in the 70-80% range based primarily on stone location. They also understand there is a risk of bleeding to the kidney, infection, damage to adjacent organs, and stone migration following the procedure. - Imaging left 6mm midpole Procedure optimization has been performed with IV acetaminophen given in the holding area and 1 L of lactated Ringer's to be given in order to optimize the fluid-stone interface. 20 mg of IV Lasix will be given in the last 5 minutes of the procedure to optimize stone clearance. Procedure: After informed consent was verified the patient was brought to the operating room and placed in a supine position. Anesthesia was performed per protocol. Safety pause time-out was performed. Imaging was displayed in the room and laterality confirmed. ESWL was performed. The 1st 500 shocks were performed at 60 hertz. These were performed with increasing power. Once maximum power was reached the rate was increased to 180 hertz. A total of 2500 shocks were given. Targeted imaging with ultrasound/fluoroscopy showed stone smudging suggestive of disintegration. The patient tolerated the procedure well and was transferred to the recovery area upon completion. Post procedure imaging will be organized. There was no evidence for flank discoloration.
[2024-12-14 09:24] VITALS: BP 105/55; PULSE 71; RESP 16; TEMP 36.3; O2SAT 98
[2024-12-14 09:29] VITALS: BP 99/63; PULSE 63; RESP 15; O2SAT 99
[2024-12-14 09:34] VITALS: BP 128/47; PULSE 68; RESP 16; O2SAT 100
[2024-12-14 09:39] VITALS: BP 130/50; PULSE 70; RESP 16; O2SAT 98
[2024-12-14 09:54] VITALS: BP 134/49; PULSE 69; RESP 16; TEMP 36.2; O2SAT 98
== END 2024-12-14 11:18 | disposition home or self-care (01) ==
PROVIDERS: PCP Internal Medicine; Visit Provider Urology
PROC: (CPT 50590; principal; 2024-12-14 09:20)
DX: N20.0 Calculus of kidney (principal); Z87.442 Personal history of urinary calculi; I48.91 Unspecified atrial fibrillation; D64.9 Anemia, unspecified; R73.02 Impaired glucose tolerance (oral); K27.9 Peptic ulcer, site unspecified, unspecified as acute or chronic, without hemorrhage or perforation; K50.90 Crohn's disease, unspecified, without complications; J45.909 Unspecified asthma, uncomplicated; M81.0 Age-related osteoporosis without current pathological fracture; Z79.01 Long term (current) use of anticoagulants; Z79.899 Other long term (current) drug therapy; Z88.1 Allergy status to other antibiotic agents; Z88.8 Allergy status to other drugs, medicaments and biological substances; Z98.890 Other specified postprocedural states; Z90.49 Acquired absence of other specified parts of digestive tract; F17.210 Nicotine dependence, cigarettes, uncomplicated
CPT/HCPCS: 50590; 74018; J0131; J1938; J2003; J2704

== ENCOUNTER → 2024-12-14 06:43 | Outpatient (BNV) | payer MEDICARE, SELFPAY | PROVIDERS: PCP Internal Medicine; Visit Provider Urology | DX: N20.0 Calculus of kidney (principal) | CPT/HCPCS: 50590 ==

== ENCOUNTER → 2024-12-14 06:51 | Outpatient (BNV) | payer MEDICARE, SELFPAY | PROVIDERS: PCP Internal Medicine; Visit Provider Radiology Diagnostic Radiology | DX: N20.0 Calculus of kidney (principal) | CPT/HCPCS: 74018 ==

== ENCOUNTER 2024-12-21 08:13 | Outpatient (REF) | payer MEDICARE, SELFPAY ==
[2024-12-21 09:06] LABS: MANUAL DIFF FLAG NO
[2024-12-21 09:41] LABS: Hematocrit 31.1 % (37.0-47.0); Hemoglobin 10.5 g/dl (12.0-16.0); Imm Gran Abs Auto 0.02 X10*3/uL (0.00-0.03); Imm Gran Pct Auto 0.4 % (0.0-0.4); Lymphocytes Absolute Auto 1.1 X10*3/uL (1.2-4.9); Mean Corpuscular HGB Conc 33.8 g/dl (31.0-35.0); Mean Corpuscular Hemoglobin 34.5 pg (27.0-33.0); Mean Corpuscular Volume 102.3 fL (80.0-98.0); NRBC Abs Auto 0.020 X10*3/uL (0.0-0.012); NRBC Pct Auto 0.4 /100WBC (0.0-0.2); Platelet Count 370 X10*3/uL (160-400); Red Blood Count 3.04 X10*6/uL (4.20-5.50); White Blood Count 5.3 X10*3/uL (4.8-10.8)
[2024-12-21 10:00] LABS: Appearance Urine Clear; Glucose Urine UA Negative (Negative); PH 5.5 (5.0-9.0); Specific Gravity - Urine <= 1.005 (1.005-1.025); UMIC TRIGGER UACC YES
[2024-12-21 10:04] LABS: UACC Culture Trigger YES
[2024-12-21 10:21] LABS: Alanine Aminotransferase 13 U/L (0-31); Albumin Level 4.0 g/dL (3.5-5.0); Alkaline Phosphatase 87 U/L (39-117); Aspartate Amino Transferase 22 U/L (5-31); Total Protein 6.8 g/dL (6.5-8.0)
== END 2024-12-21 08:14 | disposition home or self-care (01) ==
LOC: HO.LABR 08:13
PROVIDERS: Absent Provider Internal Medicine; PCP Internal Medicine; Visit Provider Internal Medicine
DX: E53.8 Deficiency of other specified B group vitamins (principal)
CPT/HCPCS: 36415; 80076; 81001; 81003; 85025; 87086; 87088; 87186; 96372; J3420

== ENCOUNTER 2024-12-21 08:13 | Outpatient (AMB) | payer MEDICARE, SELFPAY ==
--- OUTSIDE RECORDS SUMMARY | 2024-12-21 08:24 | XMS_ITS | Patient Health Record ---
Author Organization [facility] Address [address] [place] [address] Care Team Providers Care Data Entry Analyst Name Role Phone Po Tae FERRER Primary Care Provider Neymar Sanders [phone] Allergies Allergen (clinical drug ingredient) Drug/Non Drug Allergy documented on EMR Reaction Allergy Type Onset Date Status tetracycline Tetracycline HCl Unknown Drug Allergy Active Darvon Unknown Drug Allergy Active Results Component Value Reference Range Notes Complete Blood Count Auto Di ff Reviewed date:12/28/2023 07:00:26 PM Interpretation: Performing Lab:[facility], [address] [place] [phone] Notes/Report: White Blood Count 5.2 4.8-10.8 X10*3/uL [...] Reviewed date:12/25/2023 07:24:09 PM Interpretation: Performing Lab:[address] [address] Notes/Report: Bilirubin Total 0.3 0.0-1.0 mg/dL Bilirubin Direct 0.1 0.0-0.5 mg/dL Aspartate Amino Transferase 19 5-31 U/L Alanine Aminotransferase 11 0-31 U/L Total Protein 6.9 6.5-8.0 g/dL Albumin Level 4.1 3.5-5.0 g/dL Alkaline Phosphatase 86 39-117 U/L Vitamin B12 Reviewed date:12/25/2023 07:24:18 PM Interpretation: Performing Lab:[address] [address] Notes/Report: Vitamin B12 432 200-900 pg/mL NORMAL 200-900 PG/ML INDETERMINATE 160-199 PG/ML DEFICIENT < 160 PG/ML Liver Panel Reviewed date:01/23/2024 10:45:45 PM Interpretation: Performing Lab:[address] [phone] Notes/Report: Bilirubin Total 0.5 0.0-1.0 mg/dL Bilirubin Direct 0.2 0.0-0.5 mg/dL Aspartate Amino Transferase 23 5-31 U/L Alanine Aminotransferase 15 0-31 U/L Total Protein 6.6 6.5-8.0 g/dL Albumin Level 4.0 3.5-5.0 g/dL Alkaline Phosphatase 83 39-117 U/L Liver Panel Reviewed date:02/22/2024 11:20:19 PM Interpretation: Performing Lab:[facility], [address] [place] [phone] Notes/Report: Bilirubin Total 0.5 0.0-1.0 mg/dL Bilirubin Direct 0.2 0.0-0.5 mg/dL Aspartate Amino Transferase 22 5-31 U/L Alanine Aminotransferase 16 0-31 U/L Total Protein 6.7 6.5-8.0 g/dL Albumin Level 4.0 3.5-5.0 g/dL Alkaline Phosphatase 86 39-117 U/L Complete Blood Count Auto Di ff Reviewed date:03/23/2024 06:59:11 PM Interpretation: Performing Lab:[facility], [address] [place] [phone] Notes/Report: White Blood Count 3.6 4.8-10.8 X10*3/uL [...] Panel Reviewed date:03/23/2024 06:59:35 PM Interpretation: Performing Lab:[facility], [address] [place] [phone] Notes/Report: Bilirubin Total 0.3 0.0-1.0 mg/dL Bilirubin Direct 0.1 0.0-0.5 mg/dL Aspartate Amino Transferase 27 5-31 U/L Alanine Aminotransferase 17 0-31 U/L Total Protein 6.6 6.5-8.0 g/dL Albumin Level 4.0 3.5-5.0 g/dL Alkaline Phosphatase 91 39-117 U/L MAMMOGRAM DIGITAL BILATERAL SCREEN Reviewed date:03/24/2024 08:32:51 AM Interpretation:Normal Performing Lab: Notes/Report: Normal Complete Blood Count Auto Di ff Reviewed date:04/23/2024 09:32:52 AM Interpretation: Performing Lab:[facility], [address] [place] [phone] Notes/Report: White Blood Count 5.5 4.8-10.8 X10*3/uL [...] Reviewed date:04/23/2024 09:33:16 AM Interpretation: Performing Lab:[address] [address] Notes/Report: Bilirubin Total 0.4 0.0-1.0 mg/dL Bilirubin Direct 0.1 0.0-0.5 mg/dL Aspartate Amino Transferase 23 5-31 U/L Alanine Aminotransferase 16 0-31 U/L Total Protein 7.1 6.5-8.0 g/dL Albumin Level 4.3 3.5-5.0 g/dL Alkaline Phosphatase 86 39-117 U/L Complete Blood Count Auto Di ff Reviewed date:05/20/2024 04:02:01 PM Interpretation: Performing Lab:[address] [address] Notes/Report: White Blood Count 4.9 4.8-10.8 X10*3/uL [...] Panel Reviewed date:05/20/2024 04:02:33 PM Interpretation: Performing Lab:[address] [address] Notes/Report: Bilirubin Total 0.4 0.0-1.0 mg/dL Bilirubin Direct 0.1 0.0-0.5 mg/dL Aspartate Amino Transferase 29 5-31 U/L Alanine Aminotransferase 19 0-31 U/L Total Protein 7.0 6.5-8.0 g/dL Albumin Level 4.1 3.5-5.0 g/dL Alkaline Phosphatase 82 39-117 U/L Complete Blood Count Auto Di ff Reviewed date:06/21/2024 10:33:11 AM Interpretation: Performing Lab:[address] [address] Notes/Report: White Blood Count 4.2 4.8-10.8 X10*3/uL [...] Panel Reviewed date:06/21/2024 10:33:28 AM Interpretation: Performing Lab:[facility], [address] [place] [phone] Notes/Report: Bilirubin Total 0.4 0.0-1.0 mg/dL Bilirubin Direct 0.1 0.0-0.5 mg/dL Aspartate Amino Transferase 24 5-31 U/L Alanine Aminotransferase 24 0-31 U/L Total Protein 7.3 6.5-8.0 g/dL Albumin Level 4.2 3.5-5.0 g/dL Alkaline Phosphatase 87 39-117 U/L Complete Blood Count Auto Di ff Reviewed date:07/22/2024 05:28:16 PM Interpretation: Performing Lab:[facility], [address] [place] [phone] Notes/Report: White Blood Count 5.1 4.8-10.8 X10*3/uL [...] Panel Reviewed date:07/26/2024 06:49:01 PM Interpretation: Performing Lab:[facility], [address] [place] [phone] Notes/Report: Sodium 139 135-145 mmol/L Potassium 3.9 [...] Panel Reviewed date:07/26/2024 06:49:13 PM Interpretation: Performing Lab:[facility], [address] [place] [phone] Notes/Report: Bilirubin Direct 0.2 0.0-0.5 mg/dL IRON PROFILE Reviewed date:07/26/2024 06:49:29 PM Interpretation: Performing Lab:[facility], [address] [place] [phone] Notes/Report: Iron 94 30-160 mcg/dL Total Iron Binding Capacity 257 228-428 mcg/d L Percent Iron Saturation 37 15-50 % Unsaturated Iron Binding 163 Lipid Panel Reviewed date:07/26/2024 06:49:37 PM Interpretation: Performing Lab:[facility], [address] [place] [phone] Notes/Report: Triglycerides 72 <150 mg/dL Desirable Triglyceride: [...] Hormone Reviewed date:07/26/2024 06:49:57 PM Interpretation: Performing Lab:[facility], [address] [place] [phone] Notes/Report: Thyroid Stimulating Hormone 1.50 0.32-4.0 uIU/ mL TSH 3rd Generation ([employer]) Complete Blood Count Auto Di ff Reviewed date:09/19/2024 08:11:23 PM Interpretation: Performing Lab:[facility], [address] [place] [phone] Notes/Report: White Blood Count 4.4 4.8-10.8 X10*3/uL [...] Panel Reviewed date:09/19/2024 08:10:44 PM Interpretation: Performing Lab:[facility], [address] [place] [phone] Notes/Report: Bilirubin Total 0.5 0.0-1.0 mg/dL Bilirubin Direct 0.2 0.0-0.5 mg/dL Aspartate Amino Transferase 30 5-31 U/L Alanine Aminotransferase 19 0-31 U/L Total Protein 6.9 6.5-8.0 g/dL Albumin Level 4.3 3.5-5.0 g/dL Alkaline Phosphatase 82 39-117 U/L Complete Blood Count Auto Di ff Reviewed date:10/20/2024 09:57:22 PM Interpretation: Performing Lab:[facility], [address] [place] [phone] Notes/Report: White Blood Count 5.2 4.8-10.8 X10*3/uL [...] Panel Reviewed date:10/20/2024 09:09:23 AM Interpretation: Performing Lab:[facility], [address] [place] [phone] Notes/Report: Bilirubin Total 0.4 0.0-1.0 mg/dL Bilirubin Direct 0.2 0.0-0.5 mg/dL Aspartate Amino Transferase 24 5-31 U/L Alanine Aminotransferase 21 0-31 U/L Total Protein 7.0 6.5-8.0 g/dL Albumin Level 4.2 3.5-5.0 g/dL Alkaline Phosphatase 78 39-117 U/L Complete Blood Count Auto Di ff Reviewed date:11/21/2024 11:37:43 PM Interpretation: Performing Lab:[facility], [address] [place] [phone] Notes/Report: White Blood Count 8.7 4.8-10.8 X10*3/uL [...] Panel Reviewed date:11/21/2024 11:37:10 PM Interpretation: Performing Lab:[facility], [address] [place] [phone] Notes/Report: Bilirubin Total 0.3 0.0-1.0 mg/dL Bilirubin [...] Problem Status W/U Status Risk Notes Problem 129409403 Gastro-esophagea l reflux disease without esophagitis (K21.9) Active confirmed Problem 070564218 Encounter for screening for malignant neoplasm of colon (Z12.11) Active confirmed Problem 774600511 History of adenomatous polyp of colon (Z86.010) Active confirmed Problem 07974010 Weight loss (R63.4) Active confirmed Problem 69655660 Crohn's disease of both small and large intestine without complication (K50.80) Active confirmed Problem 71366002 Crohn's disease of both small and large intestine without complications (K50.80) Active confirmed Problem Diverticulosis o f large intestine without perforation or abscess without bleeding (K57.30) Active confirmed Problem 127242959 Irritable bowel syndrome with diarrhea (K58.0) Active confirmed Problem 4132764 Melena (K92.1) Active confirmed Problem 935597178 Encounter for therapeutic drug level monitoring (Z51.81) Active confirmed Problem History of gastrointestinal tract bypass (219862964) Intestinal bypass and anastomosis status (Z98.0) Active confirmed Problem 66730880 Crohns disease o f both small and large intestine without complication (K50.80) Active confirmed Problem 310688448 History of colon polyps (Z86.010) Active confirmed Problem 463758975 Gallstones (K80.20) Active confirmed Problem Gastroesophageal reflux disease (870876168) GERD (gastroesophageal reflux disease) (K21.9) Active confirmed Problem 036927238 Abdominal pain, generalized (R10.84) Active confirmed Problem 57934128 Diarrhea, unspecified type (R19.7) Active confirmed Problem 195189860 Therapeutic drug monitoring (Z51.81) Active confirmed Problem 73196179 Crohn''s disease of both small and large intestine without complication (K50.80) Active confirmed Problem 17467899 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 Vital Signs Blood pressure diastolic 77 mm Hg 09/27/2024 Height 65 in 09/27/2024 Blood pressure systolic 111 mm Hg 09/27/2024 Weight 130 lbs 09/27/2024 BMI 21.63 kg/m2 09/27/2024 Encounters Encounter Location Date Provider Diagnosis [facility] [address] [place] [address] 03/22/2024 Neymar Sauer GERD (gastroesophage al reflux disease) K21.9 ; Crohn's disease of both small and large intestine without complications K50.80 and Bile salt-induced diarrhea K90.89 [facility] [address] [place] [address] 09/27/2024 Neymar Sauer Crohns disease of elkin th small and large intestine without complication K50.80 ; Gastro-esophageal reflux disease without esophagitis K21.9 ; History of adenomatous polyp of colon Z86.010 ; Diarrhea, unspecified type R19.7 and Bile salt-induced diarrhea K90.89 [facility] [address] [place] [address] 02/22/2024 Neymar Sauer Crohn''s disease of both small and large intestine without complication K50.80 [facility] [address] [place] [address] 10/28/2024 Neymar Sauer Assessments Encounter Date Diagnosis [...] Name:Neymar Sauer , 04/11/2025 09:10:00 AM, [address] [facility], [address], [place], [address], Insurance Providers Payer Name Payer Address Payer Phone Subscriber Number Group Number Insured Name Patient Relationship to Insured Coverage Start Date Coverage End Date MEDICARE OF [place] [address] [place] [address] [id number] VIVIAN BUNN Self - patient is the insured [employer] CLAIMS [address] [place] [address] [id number] VIVIAN BUNN Self - patient is [...] the area of the femoral neck Denies [place],DM,CVA,Lung disease,renal dise ase Anxiety GERD--EGD in 04/2007 [...] [place]y 04/17/2015 Removed basal call carcinoma from [facility] Dec 2012 Cyst behind right ear removed November 2012 BTL Benign breast biopsy Crohn's disease in 1989 with right ileoc olectomy with Dr. Lima
--- NOTE | 2024-12-21 08:47 | AM.OFFVISNUR ---
Intake Visit Reasons: B12 Shot Allergies Darvon Allergy (Intermediate, Verified 11/30/24 09:17) oral swelling Doxycycline Hyclate Allergy (Intermediate, Verified 11/30/24 09:17) diarrhea, severe diarrhea tetracycline (TETRACYCLINE) Allergy (Intermediate, Verified 11/30/24 09:17) Itching Office Meds cyanocobalamin (vitamin B-12) 1,000 mcg/mL injection solution Performing Provider: Tea Duarte MD [facility] Administered by: Elvi Almonte LPN on 12/21/24 08:47 Dose Route Admin Location Dispensed Lot Number Expiration Date [facility] Library Technical Assistant 1,000 mcg IM left deltoid 1 mL [id number] 02/28/26 87209-378-01 Jamn Total Dispensed Waste 1 mL 0 % Assessment & Plan Assessment & Plan Orders: Orders AMB Vitamin B12 Injection Patient Supplied Today E53.8 - Deficiency of other specified B group vitamins Coding
== END 2024-12-21 08:49 | disposition home or self-care (01) ==
LOC: HO.HMCH 08:14
PROVIDERS: PCP Internal Medicine; Visit Provider Internal Medicine
DX: E53.8 Deficiency of other specified B group vitamins (principal)

== ENCOUNTER 2025-01-06 10:40 | Outpatient (AMB) | payer MEDICARE, SELFPAY ==
--- OUTSIDE RECORDS SUMMARY | 2025-01-06 10:43 | XMS_ITS | Patient Health Record ---
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 Name Role Phone Po Tae FERRER Primary Care Provider Neymar Sanders [phone] Allergies Allergen (clinical drug ingredient) Drug/Non Drug Allergy documented on EMR Reaction Allergy Type Onset Date Status tetracycline Tetracycline HCl Unknown Drug Allergy Active Darvon Unknown Drug Allergy Active Results Component Value Reference Range Notes Liver Panel Reviewed date:01/23/2024 10:45:45 PM Interpretation: Performing Lab:[facility], [address] [place] [phone] Notes/Report: Bilirubin Total 0.5 0.0-1.0 mg/dL Bilirubin Direct 0.2 0.0-0.5 mg/dL Aspartate Amino Transferase 23 5-31 U/L Alanine Aminotransferase 15 0-31 U/L Total Protein 6.6 6.5-8.0 g/dL Albumin Level 4.0 3.5-5.0 g/dL Alkaline Phosphatase 83 39-117 U/L Liver Panel Reviewed date:02/22/2024 11:20:19 PM Interpretation: Performing Lab:[facility], [address] [place] [phone] Notes/Report: Bilirubin Total 0.5 0.0-1.0 mg/dL Bilirubin Direct 0.2 0.0-0.5 mg/dL Aspartate Amino Transferase 22 5-31 U/L Alanine Aminotransferase 16 0-31 U/L Total Protein 6.7 6.5-8.0 g/dL Albumin Level 4.0 3.5-5.0 g/dL Alkaline Phosphatase 86 39-117 U/L Complete Blood Count Auto Di ff Reviewed date:03/23/2024 06:59:11 PM Interpretation: Performing Lab:[address] [phone] Notes/Report: White Blood Count 3.6 4.8-10.8 X10*3/uL [...] Panel Reviewed date:03/23/2024 06:59:35 PM Interpretation: Performing Lab:[facility], [address] [place] [phone] Notes/Report: Bilirubin Total 0.3 0.0-1.0 mg/dL Bilirubin Direct 0.1 0.0-0.5 mg/dL Aspartate Amino Transferase 27 5-31 U/L Alanine Aminotransferase 17 0-31 U/L Total Protein 6.6 6.5-8.0 g/dL Albumin Level 4.0 3.5-5.0 g/dL Alkaline Phosphatase 91 39-117 U/L MAMMOGRAM DIGITAL BILATERAL SCREEN Reviewed date:03/24/2024 08:32:51 AM Interpretation:Normal Performing Lab: Notes/Report: Normal Complete Blood Count Auto Di ff Reviewed date:04/23/2024 09:32:52 AM Interpretation: Performing Lab:[facility], [address] [place] [phone] Notes/Report: White Blood Count 5.5 4.8-10.8 X10*3/uL [...] Panel Reviewed date:04/23/2024 09:33:16 AM Interpretation: Performing Lab:[facility], [address] [place] [phone] Notes/Report: Bilirubin Total 0.4 0.0-1.0 mg/dL Bilirubin Direct 0.1 0.0-0.5 mg/dL Aspartate Amino Transferase 23 5-31 U/L Alanine Aminotransferase 16 0-31 U/L Total Protein 7.1 6.5-8.0 g/dL Albumin Level 4.3 3.5-5.0 g/dL Alkaline Phosphatase 86 39-117 U/L Complete Blood Count Auto Di ff Reviewed date:05/20/2024 04:02:01 PM Interpretation: Performing Lab:[facility], [address] [place] [phone] Notes/Report: White Blood Count 4.9 4.8-10.8 X10*3/uL [...] Panel Reviewed date:05/20/2024 04:02:33 PM Interpretation: Performing Lab:[facility], [address] [place] [phone] Notes/Report: Bilirubin Total 0.4 0.0-1.0 mg/dL Bilirubin Direct 0.1 0.0-0.5 mg/dL Aspartate Amino Transferase 29 5-31 U/L Alanine Aminotransferase 19 0-31 U/L Total Protein 7.0 6.5-8.0 g/dL Albumin Level 4.1 3.5-5.0 g/dL Alkaline Phosphatase 82 39-117 U/L Complete Blood Count Auto Di ff Reviewed date:06/21/2024 10:33:11 AM Interpretation: Performing Lab:[facility], [address] [place] [phone] Notes/Report: White Blood Count 4.2 4.8-10.8 X10*3/uL [...] Panel Reviewed date:06/21/2024 10:33:28 AM Interpretation: Performing Lab:[address] [phone] Notes/Report: Bilirubin Total 0.4 0.0-1.0 mg/dL Bilirubin Direct 0.1 0.0-0.5 mg/dL Aspartate Amino Transferase 24 5-31 U/L Alanine Aminotransferase 24 0-31 U/L Total Protein 7.3 6.5-8.0 g/dL Albumin Level 4.2 3.5-5.0 g/dL Alkaline Phosphatase 87 39-117 U/L Complete Blood Count Auto Di ff Reviewed date:07/22/2024 05:28:16 PM Interpretation: Performing Lab:[address] [phone] Notes/Report: White Blood Count 5.1 4.8-10.8 X10*3/uL [...] Panel Reviewed date:07/26/2024 06:49:01 PM Interpretation: Performing Lab:[facility], [address] [place] [phone] Notes/Report: Sodium 139 135-145 mmol/L Potassium 3.9 [...] Panel Reviewed date:07/26/2024 06:49:13 PM Interpretation: Performing Lab:[address] [phone] Notes/Report: Bilirubin Direct 0.2 0.0-0.5 mg/dL IRON PROFILE Reviewed date:07/26/2024 06:49:29 PM Interpretation: Performing Lab:[address] [phone] Notes/Report: Iron 94 30-160 mcg/dL Total Iron Binding Capacity 257 228-428 mcg/d L Percent Iron Saturation 37 15-50 % Unsaturated Iron Binding 163 Lipid Panel Reviewed date:07/26/2024 06:49:37 PM Interpretation: Performing Lab:[facility], [address] [place] [phone] Notes/Report: Triglycerides 72 <150 mg/dL Desirable Triglyceride: [...] Hormone Reviewed date:07/26/2024 06:49:57 PM Interpretation: Performing Lab:[address] [phone] Notes/Report: Thyroid Stimulating Hormone 1.50 0.32-4.0 uIU/ mL TSH 3rd Generation ([employer]) Complete Blood Count Auto Di ff Reviewed date:09/19/2024 08:11:23 PM Interpretation: Performing Lab:[facility], [address] [place] [phone] Notes/Report: White Blood Count 4.4 4.8-10.8 X10*3/uL [...] Panel Reviewed date:09/19/2024 08:10:44 PM Interpretation: Performing Lab:[facility], [address] [place] [phone] Notes/Report: Bilirubin Total 0.5 0.0-1.0 mg/dL Bilirubin Direct 0.2 0.0-0.5 mg/dL Aspartate Amino Transferase 30 5-31 U/L Alanine Aminotransferase 19 0-31 U/L Total Protein 6.9 6.5-8.0 g/dL Albumin Level 4.3 3.5-5.0 g/dL Alkaline Phosphatase 82 39-117 U/L Complete Blood Count Auto Di ff Reviewed date:10/20/2024 09:57:22 PM Interpretation: Performing Lab:[address] [phone] Notes/Report: White Blood Count 5.2 4.8-10.8 X10*3/uL [...] Panel Reviewed date:10/20/2024 09:09:23 AM Interpretation: Performing Lab:[facility], [address] [place] [phone] Notes/Report: Bilirubin Total 0.4 0.0-1.0 mg/dL Bilirubin Direct 0.2 0.0-0.5 mg/dL Aspartate Amino Transferase 24 5-31 U/L Alanine Aminotransferase 21 0-31 U/L Total Protein 7.0 6.5-8.0 g/dL Albumin Level 4.2 3.5-5.0 g/dL Alkaline Phosphatase 78 39-117 U/L Complete Blood Count Auto Di ff Reviewed date:11/21/2024 11:37:43 PM Interpretation: Performing Lab:[facility], [address] [place] [phone] Notes/Report: White Blood Count 8.7 4.8-10.8 X10*3/uL [...] Panel Reviewed date:11/21/2024 11:37:10 PM Interpretation: Performing Lab:[facility], [address] [place] [phone] Notes/Report: Bilirubin Total 0.3 0.0-1.0 mg/dL Bilirubin Direct 0.1 0.0-0.5 mg/dL Aspartate Amino Transferase 18 5-31 U/L Alanine Aminotransferase 8 0-31 U/L Total Protein 7.1 6.5-8.0 g/dL Albumin Level 3.6 3.5-5.0 g/dL Alkaline Phosphatase 108 39-117 U/L Complete Blood Count Auto Di ff Reviewed date:12/25/2024 07:52:26 PM Interpretation: Performing Lab:[facility], [address] [place] [phone] Notes/Report: White Blood Count 5.3 4.8-10.8 X10*3/uL Red Blood Count 3.04 4.20-5.50 X10*6/uL Hemoglobin 10.5 12.0-16.0 g/dl Hematocrit 31.1 37.0-47.0 % Mean Corpuscular Volume 102.3 80.0-98.0 fL Mean Corpuscular Hemoglobin 34.5 27.0-33.0 pg Mean Corpuscular HGB Conc 33.8 31.0-35.0 g/dl Red Cell Distribution Width 18.4 11.0-16.0 % Platelet Count 370 160-400 X10*3/uL Mean Platelet Volume 9.4 9.4-12.3 fL Neutrophils Percent Auto 67.7 45-73 % Imm Gran Pct Auto 0.4 0.0-0.4 % Lymphocytes Percent Auto 20.0 20-40 % Monocytes Percent Auto 6.2 2-11 % Eosinophils Percent Auto 4.2 0-4 % Basophils Percent Auto 1.5 0-2 % NRBC Pct Auto 0.4 0.0-0.2 /100WBC Neutrophils Absolute Auto 3.6 2.0-8.3 x10*3/u L Imm Gran Abs Auto 0.02 0.00-0.03 X10*3/uL Lymphocytes Absolute Auto 1.1 1.2-4.9 X10*3/u L Monocytes Absolute Auto 0.3 0.1-1.2 X10*3/uL Eosinophils Absolute Auto 0.2 0.0-0.4 X10*3/u L Basophils Absolute Auto 0.1 0.0-0.2 X10*3/uL NRBC Abs Auto 0.020 0.0-0.012 X10*3/uL Liver Panel Reviewed date:12/25/2024 07:51:21 PM Interpretation: Performing Lab:[facility], [address] [place] [phone] Notes/Report: Bilirubin Total 0.5 0.0-1.0 mg/dL Bilirubin Direct 0.2 0.0-0.5 mg/dL Aspartate Amino Transferase 22 5-31 U/L Alanine Aminotransferase 13 0-31 U/L Total Protein 6.8 6.5-8.0 g/dL Albumin Level 4.0 3.5-5.0 g/dL Alkaline Phosphatase 87 39-117 U/L Reason For Referral No Information Medications Medication SIG (Take, Route, Frequency, Duration) Notes Start Date End Date Status Dicyclomine HCl 10 MG TAKE 1 TO 2 CAPSUL ES BY MOUTH 4 TIMES A DAY NEEDED FOR ABDOMINAL CRAMPS OR DISCOMFORT FOR 90 DAYS for 90 Active azaTHIOprine 50 MG TAKE 2 TABLETS BY MO UT EVERY DAY Active traMADol HCl 50mg 1 [...] Problem Status W/U Status Risk Notes Problem 833330483 Gastro-esophagea l reflux disease without esophagitis (K21.9) Active confirmed Problem 122963726 Encounter for screening for malignant neoplasm of colon (Z12.11) Active confirmed Problem 430907713 History of adenomatous polyp of colon (Z86.010) Active confirmed Problem 40117875 Weight loss (R63.4) Active confirmed Problem 71753966 Crohn's disease of both small and large intestine without complication (K50.80) Active confirmed Problem 45777326 Crohn's disease of both small and large intestine without complications (K50.80) Active confirmed Problem Diverticulosis o f large intestine without perforation or abscess without bleeding (K57.30) Active confirmed Problem 096432998 Irritable bowel syndrome with diarrhea (K58.0) Active confirmed Problem 6799668 Melena (K92.1) Active confirmed Problem 404104948 Encounter for therapeutic drug level monitoring (Z51.81) Active confirmed Problem History of gastrointestinal tract bypass (586090624) Intestinal bypass and anastomosis status (Z98.0) Active confirmed Problem 93930054 Crohns disease o f both small and large intestine without complication (K50.80) Active confirmed Problem 915609447 History of colon polyps (Z86.010) Active confirmed Problem 421233283 Gallstones (K80.20) Active confirmed Problem Gastroesophageal reflux disease (137552425) GERD (gastroesophageal reflux disease) (K21.9) Active confirmed Problem 355204604 Abdominal pain, generalized (R10.84) Active confirmed Problem 36149344 Diarrhea, unspecified type (R19.7) Active confirmed Problem 938746287 Therapeutic drug monitoring (Z51.81) Active confirmed Problem 00895008 Crohn''s disease of both small and large intestine without complication (K50.80) Active confirmed Problem 20259590 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 Vital Signs Blood pressure diastolic 77 mm Hg 09/27/2024 Height 65 in 09/27/2024 Blood pressure systolic 111 mm Hg 09/27/2024 Weight 130 lbs 09/27/2024 BMI 21.63 kg/m2 09/27/2024 Encounters Encounter Location Date Provider Diagnosis [facility] [address] [place] [phone] 03/22/2024 Neymar Sauer GERD (gastroesophage al reflux disease) K21.9 ; Crohn's disease of both small and large intestine without complications K50.80 and Bile salt-induced diarrhea K90.89 [facility] [address] [place] [phone] 09/27/2024 Neymar Sauer Crohns disease of elkin th small and large intestine without complication K50.80 ; Gastro-esophageal reflux disease without esophagitis K21.9 ; History of adenomatous polyp of colon Z86.010 ; Diarrhea, unspecified type R19.7 and Bile salt-induced diarrhea K90.89 [facility] [address] [place] [phone] 02/22/2024 Neyamr Sauer Crohn''s disease of both small and large intestine without complication K50.80 [facility] [address] [place] [phone] 10/28/2024 Neymar Sauer Assessments Encounter Date Diagnosis [...] Name:Neymar Sauer , 04/11/2025 09:10:00 AM, [address], [address], [place], [address], Insurance Providers Payer Name Payer Address Payer Phone Subscriber Number Group Number Insured Name Patient Relationship to Insured Coverage Start Date Coverage End Date MEDICARE OF [place] [address] [place] [address] [id number] VIVIAN BUNN Self - patient is the insured [employer] ATT[employer] CLAIMS [address] [place] [address] [id number] VIVIAN BUNN Self - patient is [...] the area of the femoral neck Denies CT,DM,CVA,Lung disease,renal dise ase Anxiety GERD--EGD in 04/2007 [...] Leahy 04/17/2015 Removed basal call carcinoma from scientologist Dec 2012 Cyst behind right ear removed November 2012 BTL Benign breast biopsy Crohn's disease in 1989 with right ileoc olectomy with Dr. Lima
--- NOTE | 2025-01-06 10:46 | A.OFFPC_ITS ---
Vital Signs 01/06/25 10:49 Height 5 ft 5 in Weight 122 lb BMI 20.3 BP 124/54 L Blood Pressure Location Lt brachial Position Sitting Pulse 88 Pulse Oximetry (%) 96 Intake Visit Reasons: 3mth f/u Med Review Lighter Captain Required: No Accompanied by: Self / Same As Patient Allergies Darvon Allergy (Intermediate, Verified 01/06/25 11:11) oral swelling Doxycycline Hyclate Allergy (Intermediate, Verified 01/06/25 11:11) diarrhea, severe diarrhea tetracycline (TETRACYCLINE) Allergy (Intermediate, Verified 01/06/25 11:11) Itching Medication List - Last Reconciled 01/06/25 by Beatrice Jacob PA-C albuterol sulfate 90 mcg/actuation 1 inh inhalation QID PRN apixaban (Eliquis) 5 mg PO BID ascorbic acid (vitamin C) 1,000 mg PO DAILY 90 days azathioprine 100 mg PO DAILY betamethasone dipropionate 0.05% 1 appl topical DAILY PRN buspirone 10 mg PO DAILY cholecalciferol (vitamin D3) 50 mcg PO DAILY 90 days cholestyramine (with sugar) 4 gram (Questran) 4 grams PO DAILY cyanocobalamin (vitamin B-12) 1,000 mcg IM Q4W 90 days dicyclomine 20 mg PO QID PRN dronedarone (Multaq) 400 mg PO BID mesalamine ER (Pentasa) 1,000 mg (4 x 250 mg) PO QID methenamine hippurate 1 g PO DAILY 90 days metoprolol tartrate 12.5 mg (1/2 x 25 mg) PO BID omeprazole 20 mg PO DAILY@0630 pyridoxine (vitamin B6) 100 mg PO DAILY raloxifene 60 mg PO DAILY tamsulosin 0.4 mg PO BEDTIME 14 days tramadol 50 mg PO Q6H PRN tramadol 50 mg PO DAILY 90 days Tobacco use date assessed: 01/06/25 Fall risk assessment: No Falls in past year Last assessed Fall Risk: 01/06/25 Dental Screening Dental Screen Date: 01/06/25 Did you have a dental visit in the last 12 months?: Yes Did you have a dental problem in the last 6 months where you did not have access to dental care?: No Was dental information given to patient?: Patient has dentist HPI 3mth f/u Med Review HPI Details 69-year-old female with past medical his tory of GERD, asthma, anxiety, depression, impaired glucose tolerance, osteoporosis last seen 10/2024 coming in for follow up. In review of the notes, patient was seen by Urology 12/14/24 for ESWL with follow up ultrasound that showed stones munching suggestive of disintegration advised to follow up with Urology. She was seen by Cardiology 11/23 and was referred out to EP for possible catheter ablation in regards to atrial fibrillation and follow up in 6 months. Presenting with atrial fibrillation and urinary tract infection management. The patient has been experiencing atrial fibrillation, which was previously evaluated by cardiology. She was informed that her results were good, but there was confusion regarding her follow-up appointments with cardiology. The patient reports improvement in urinary symptoms, with no burning or pain during urination. However, she experiences frequent urination, which is a persistent issue. She has a history of urinary tract infections, and her symptoms have been improving with treatment. The patient reports increased anxiety and irritability over the past six months, which she attributes to stress and ongoing health issues. She is currently taking medication for anxiety but not for depression. [facility] Medical History Afib Cellulitis and abscess of other specified site Osteoporosis Nicotine dependence, cigarettes, uncomplicated Breast cancer screening by mammogram Lip abscess Palpitations Flank pain Basal cell carcinoma Peptic ulcer disease Renal calculi Vitamin D deficiency Impaired glucose tolerance Anxiety and depression Anemia Asthma GERD (gastroesophageal reflux disease) Crohn's disease Surgical History History of tooth extraction History of surgical removal of ganglion cyst Hx of lithotripsy Hx of dilation and curettage Hx of cystoscopy History of hysteroscopy History of colonoscopy History of cholecystectomy Hx of appendectomy H/O tubal ligation History of lumpectomy of left breast S/P small bowel resection Social History Household Members: Significant Other Housing: House Alcohol intake: current Alcohol intake frequency: holidays/special occasions only Patient Tobacco Use Status: Current everyday Tobacco user Tobacco use type: Cigarette Cigarette Packs Per Day: 1 Cigarettes Per Day: 5 Years Smoked: 50 Packs Per Year: 50 Packs per year/per ci.50 e-Cigarette/Vaping Use: Never Used Second Hand Smoke Exposure: Yes Advance Directives Date on File: 10/25/24 service: No Current occupational status: 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 Neymar Florez, Elsy Patel, Tan Alejandra and colleagues, with an educational colleen from [employer]. Review of Systems Const Denies body aches, Denies chills, Denies fever(s), Denies headache(s) and Denies poor appetite Eyes Reports no additional complaints ENT Denies dizziness and Denies headache(s) Card Denies chest pain, Denies syncope, Denies edema, Denies irregular heart rhythm, Denies lightheadedness and Denies dyspnea Resp Denies dyspnea GI Denies abdominal pain, Denies nausea and Denies vomiting Reports no additional complaints Musc Reports no additional complaints and Denies abnormal gait Skin/Breast Reports system reviewed and no additional complaints, except as documented Neuro Denies abnormal gait, Denies dizziness, Denies syncope and Denies headache(s) Psych Reports no additional complaints Physical exam (Primary Care) Vital Signs: Last Vital Signs Pulse 88 01/06/25 10:49 BP 124/54 L 01/06/25 10:49 Pulse Ox 96 01/06/25 10:49 BMI result Body Mass Index 20.3 Tobacco/Smoking Status: Tobacco use Status Tobacco use date assessed 01/06/25 01/06/25 10:53 Patient Tobacco Use Status Current everyday Tobacco 01/06/25 10:46 Tobacco use type Cigarette 01/06/25 10:46 e-Cigarette/Vaping Use Never Used 01/06/25 10:46 Thrive Assessment: Date of Thrive Assessment Date Thrive assessed 01/06/25 01/06/25 10:53 Const General: cooperative, healthy appearing, comfortable and no acute distress Orientation/consciousness: patient oriented x3 HENMT Head: Yes normocephalic Ears: hearing grossly normal bilaterally General nose exam: Normal external nose present Eyes General: appearance normal, both eyes and all related structures Conjunctivae: conjunctivae normal Neck Neck: Yes full ROM and Yes no lymphadenopathy Resp Effort & Inspection: normal respiratory effort Auscultation: clear to auscultation bilaterally, no crackles, no rales, no rhonchi and no wheezes Cardio Rate: regular rate Rhythm: regular rhythm Skin General skin exam: no rashes or lesions noted Neuro General: patient oriented x3 Gait exam (Neuro): Normal gait present Extrem General: Yes normal to inspection, Yes full ROM and No edema Psych Affect: normal affect Attitude: cooperative Insight: Good insight present (Psych) Judgement: Good judgement present (Psych) Coding Level of Care Code Est Pt Level 3 (83912) Diagnoses Anxiety and depression F41.9; F32.9 Afib I48.91 Impaired glucose tolerance R73.02 Renal calculi N20.0 Nicotine dependence, cigarettes, uncomplicated F17.210 Mild intermittent asthma without complication J45.20 Asthma complication type: uncomplicated Asthma persistence: intermittent Asthma severity: mild Assessment & Plan Assessment & Plan (1) Anxiety and depression: Code(s): F41.9 - Anxiety disorder, unspecified; F32.9 - Major depressive disorder, single episode, unspecified Category: Medical Plan: Patient has anxiety and depression anxiety is currently well managed with BuSpar at this time. She does endorse feelings of depression as well as agitation however is declining medication management or counseling at this time. She will reach out should this change (2) Afib: Code(s): I48.91 - Unspecified atrial fibrillation Category: Medical Plan: Patient has a presence of AFib she was seen by [facility] and advised to see EP Cardiology however there is some confusion regarding this referral. I did reach out to the patient's cardiovascular provider at [facility] for clarification. Plan to continue with the referral as planned by Cardiology and should this change I will reach out to the patient. (3) Impaired glucose tolerance: Code(s): R73.02 - Impaired glucose tolerance (oral) Category: Medical Plan: Decrease the amount of carbohydrates such as pasta, bread, rice, and potatoes and limit the amount of sweets. Although fruits are generally healthy they should be eaten in moderation as they are still high in sugar. (4) Renal calculi: Code(s): N20.0 - Calculus of kidney Category: Medical Plan: She continues to follow with Urology s/p ESWL and has follow up ultrasound later this month with the urology appointment to follow up. Asymptomatic at this time (5) Nicotine dependence, cigarettes, uncomplicated: Comment: (30+PYH) CT scan July 2024 Code(s): F17.210 - Nicotine dependence, cigarettes, uncomplicated Category: Medical Plan: Smoking cigarettes and the use of tobacco can be harmful. We discussed the importance of stopping and options to aid in smoking cessation. She has cut back to 5 cigarettes per day and is not interested in NRT or medication management at this time. (6) Asthma: Code(s): J45.909 - Unspecified asthma, uncomplicated Category: Medical Qualifiers: Asthma complication type: uncomplicated Asthma persistence: intermittent Asthma severity: mild Qualified Code(s): J45.20 - Mild intermittent asthma, uncomplicated Plan: Asthma currently controlled on present medications. Continue on albuterol as needed.? Avoid triggers such as allergies. Plan The patient will continue to be monitored for atrial fibrillation, with a referral to cardiology to ensure proper management and follow-up. The confusion regarding her cardiology appointments will be addressed by contacting the cardiology office to clarify her status and ensure she receives the necessary care. The patient is advised to continue taking Eliquis, despite the bruising, as it is crucial for preventing complications associated with atrial fibrillation. For the urinary tract infection, the patient reports improvement in symptoms, and no further intervention is required at this time. She is advised to monitor her symptoms and report any changes or worsening to her healthcare provider. Regarding her anxiety, the patient is currently on medication for anxiety but not for depression. She is advised to monitor her symptoms and consider discussing further treatment options with her healthcare provider if her symptoms persist or worsen. This note was constructed using voice recognition software. While every effort has been made to ensure accuracy and diffusion operator, still areas may have been included sometimes these areas may affect the content or meeting of the given symptoms. Total time spent caring for the patient today was 20 minutes. This includes time spent before the visit reviewing the chart, time spent during the visit, and time spent after the visit and documentation. Patient was informed and verbally consented to the use of an ambient scribe for clinic note documentation during this visit. Medications: Discontinued tamsulosin Discontinued Reason: Patient no longer taking 0.4 mg PO BEDTIME 14 days 14 caps 0RF tramadol Discontinued Reason: Patient Completed Course 50 mg PO Q6H PRN 8 tabs 0RF pain (scale score 1-3)
[2025-01-06 10:49] VITALS: BP 124/54; PULSE 88; O2SAT 96; BMI 20.3
== END 2025-01-06 11:34 | disposition home or self-care (01) ==
LOC: HO.HMCH 10:40
PROVIDERS: PCP Internal Medicine
DX: F41.9 Anxiety disorder, unspecified (principal); F32.9 Major depressive disorder, single episode, unspecified; I48.91 Unspecified atrial fibrillation; R73.02 Impaired glucose tolerance (oral); N20.0 Calculus of kidney; F17.210 Nicotine dependence, cigarettes, uncomplicated; J45.20 Mild intermittent asthma, uncomplicated

== ENCOUNTER → 2025-01-06 10:40 | Outpatient (BNVA) | payer MEDICARE, SELFPAY | PROVIDERS: PCP Internal Medicine | DX: F41.9 Anxiety disorder, unspecified (principal); F32.9 Major depressive disorder, single episode, unspecified; I48.91 Unspecified atrial fibrillation; R73.02 Impaired glucose tolerance (oral); N20.0 Calculus of kidney; J45.20 Mild intermittent asthma, uncomplicated; F17.210 Nicotine dependence, cigarettes, uncomplicated | CPT/HCPCS: 99212 ==

== ENCOUNTER 2025-01-18 14:12 | Outpatient (REF) | payer MEDICARE, SELFPAY ==
--- NOTE | ~2025-01-18 | US_ITS ---
EXAMINATION: US RETROPERITONEAL LIMITED (RENAL ONLY) CLINICAL INFORMATION: Calculus of kidney.. COMPARISON: Correlated to complete ultrasound abdomen dated October 30, 2024. Correlated to CT abdomen pelvis dated October 24, 2024. TECHNIQUE: Real-time ultrasound kidneys using grayscale and color Doppler technique. FINDINGS: RIGHT KIDNEY: 10 x 4 x 5 cm (SAG x AP x TRV). Normal echotexture. Normal renal cortical thickness. No hydronephrosis. There is a 1.0 cm exophytic anechoic lesion in the midportion without septations or flow on color Doppler interrogation. There is a 0.5 cm hyperechoic abnormality in the lower pole. LEFT KIDNEY: 9 x 5 x 4 cm (SAG x AP x TRV). Normal echotexture. Normal renal cortical thickness. No hydronephrosis. There is a 0.4 cm hyperechoic lesion in the lower pole. There is a 1.0 cm exophytic anechoic lesion in the lower pole without septations or flow on color Doppler interrogation. US/US renal BI IMPRESSION: Bilateral renal cysts. Bilateral nonobstructing nephrolithiasis. No hydronephrosis.. Electronically signed by: Pollo Vidal MD 01/18/2025 03:47 PM EDT
--- OUTSIDE RECORDS SUMMARY | 2025-01-18 15:10 | XMS_ITS | Patient Health Record ---
Author Organization [facility] Address [address] [place] [address] Care Team Providers Care Physician Representative Name Role Phone Po Tae FERRER Primary Care Provider Neymar Sanders [phone] Allergies Allergen (clinical drug ingredient) Drug/Non Drug Allergy documented on EMR Reaction Allergy Type Onset Date Status tetracycline Tetracycline HCl Unknown Drug Allergy Active Darvon Unknown Drug Allergy Active Results Component Value Reference Range Notes Liver Panel Reviewed date:01/23/2024 10:45:45 PM Interpretation: Performing Lab:[facility], [address] [place] [phone] Notes/Report: Bilirubin Total 0.5 0.0-1.0 mg/dL Bilirubin Direct 0.2 0.0-0.5 mg/dL Aspartate Amino Transferase 23 5-31 U/L Alanine Aminotransferase 15 0-31 U/L Total Protein 6.6 6.5-8.0 g/dL Albumin Level 4.0 3.5-5.0 g/dL Alkaline Phosphatase 83 39-117 U/L Liver Panel Reviewed date:02/22/2024 11:20:19 PM Interpretation: Performing Lab:[facility], [address] [place] [phone] Notes/Report: Bilirubin Total 0.5 0.0-1.0 mg/dL Bilirubin Direct 0.2 0.0-0.5 mg/dL Aspartate Amino Transferase 22 5-31 U/L Alanine Aminotransferase 16 0-31 U/L Total Protein 6.7 6.5-8.0 g/dL Albumin Level 4.0 3.5-5.0 g/dL Alkaline Phosphatase 86 39-117 U/L Complete Blood Count Auto Di ff Reviewed date:03/23/2024 06:59:11 PM Interpretation: Performing Lab:[address] [phone] Notes/Report: White Blood Count 3.6 4.8-10.8 X10*3/uL [...] Panel Reviewed date:03/23/2024 06:59:35 PM Interpretation: Performing Lab:[facility], [address] [place] [phone] Notes/Report: Bilirubin Total 0.3 0.0-1.0 mg/dL Bilirubin Direct 0.1 0.0-0.5 mg/dL Aspartate Amino Transferase 27 5-31 U/L Alanine Aminotransferase 17 0-31 U/L Total Protein 6.6 6.5-8.0 g/dL Albumin Level 4.0 3.5-5.0 g/dL Alkaline Phosphatase 91 39-117 U/L MAMMOGRAM DIGITAL BILATERAL SCREEN Reviewed date:03/24/2024 08:32:51 AM Interpretation:Normal Performing Lab: Notes/Report: Normal Complete Blood Count Auto Di ff Reviewed date:04/23/2024 09:32:52 AM Interpretation: Performing Lab:[facility], [address] [place] [phone] Notes/Report: White Blood Count 5.5 4.8-10.8 X10*3/uL [...] Panel Reviewed date:04/23/2024 09:33:16 AM Interpretation: Performing Lab:[facility], [address] [place] [phone] Notes/Report: Bilirubin Total 0.4 0.0-1.0 mg/dL Bilirubin Direct 0.1 0.0-0.5 mg/dL Aspartate Amino Transferase 23 5-31 U/L Alanine Aminotransferase 16 0-31 U/L Total Protein 7.1 6.5-8.0 g/dL Albumin Level 4.3 3.5-5.0 g/dL Alkaline Phosphatase 86 39-117 U/L Complete Blood Count Auto Di ff Reviewed date:05/20/2024 04:02:01 PM Interpretation: Performing Lab:[facility], [address] [place] [phone] Notes/Report: White Blood Count 4.9 4.8-10.8 X10*3/uL [...] Panel Reviewed date:05/20/2024 04:02:33 PM Interpretation: Performing Lab:[facility], [address] [place] [phone] Notes/Report: Bilirubin Total 0.4 0.0-1.0 mg/dL Bilirubin Direct 0.1 0.0-0.5 mg/dL Aspartate Amino Transferase 29 5-31 U/L Alanine Aminotransferase 19 0-31 U/L Total Protein 7.0 6.5-8.0 g/dL Albumin Level 4.1 3.5-5.0 g/dL Alkaline Phosphatase 82 39-117 U/L Complete Blood Count Auto Di ff Reviewed date:06/21/2024 10:33:11 AM Interpretation: Performing Lab:[facility], [address] [place] [phone] Notes/Report: White Blood Count 4.2 4.8-10.8 X10*3/uL [...] Panel Reviewed date:06/21/2024 10:33:28 AM Interpretation: Performing Lab:[address] [phone] Notes/Report: Bilirubin Total 0.4 0.0-1.0 mg/dL Bilirubin Direct 0.1 0.0-0.5 mg/dL Aspartate Amino Transferase 24 5-31 U/L Alanine Aminotransferase 24 0-31 U/L Total Protein 7.3 6.5-8.0 g/dL Albumin Level 4.2 3.5-5.0 g/dL Alkaline Phosphatase 87 39-117 U/L Complete Blood Count Auto Di ff Reviewed date:07/22/2024 05:28:16 PM Interpretation: Performing Lab:[address] [phone] Notes/Report: White Blood Count 5.1 4.8-10.8 X10*3/uL [...] Panel Reviewed date:07/26/2024 06:49:01 PM Interpretation: Performing Lab:[facility], [address] [place] [phone] Notes/Report: Sodium 139 135-145 mmol/L Potassium 3.9 [...] Panel Reviewed date:07/26/2024 06:49:13 PM Interpretation: Performing Lab:[address] [phone] Notes/Report: Bilirubin Direct 0.2 0.0-0.5 mg/dL IRON PROFILE Reviewed date:07/26/2024 06:49:29 PM Interpretation: Performing Lab:[address] [phone] Notes/Report: Iron 94 30-160 mcg/dL Total Iron Binding Capacity 257 228-428 mcg/d L Percent Iron Saturation 37 15-50 % Unsaturated Iron Binding 163 Lipid Panel Reviewed date:07/26/2024 06:49:37 PM Interpretation: Performing Lab:[facility], [address] [place] [phone] Notes/Report: Triglycerides 72 <150 mg/dL Desirable Triglyceride: [...] Hormone Reviewed date:07/26/2024 06:49:57 PM Interpretation: Performing Lab:[address] [phone] Notes/Report: Thyroid Stimulating Hormone 1.50 0.32-4.0 uIU/ mL TSH 3rd Generation ([facility] [employer]) Complete Blood Count Auto Di ff Reviewed date:09/19/2024 08:11:23 PM Interpretation: Performing Lab:[facility], [address] [place] [phone] Notes/Report: White Blood Count 4.4 4.8-10.8 X10*3/uL [...] Panel Reviewed date:09/19/2024 08:10:44 PM Interpretation: Performing Lab:[facility], [address] [place] [phone] Notes/Report: Bilirubin Total 0.5 0.0-1.0 mg/dL Bilirubin Direct 0.2 0.0-0.5 mg/dL Aspartate Amino Transferase 30 5-31 U/L Alanine Aminotransferase 19 0-31 U/L Total Protein 6.9 6.5-8.0 g/dL Albumin Level 4.3 3.5-5.0 g/dL Alkaline Phosphatase 82 39-117 U/L Complete Blood Count Auto Di ff Reviewed date:10/20/2024 09:57:22 PM Interpretation: Performing Lab:[address] [phone] Notes/Report: White Blood Count 5.2 4.8-10.8 X10*3/uL [...] Panel Reviewed date:10/20/2024 09:09:23 AM Interpretation: Performing Lab:[facility], [address] [place] [phone] Notes/Report: Bilirubin Total 0.4 0.0-1.0 mg/dL Bilirubin Direct 0.2 0.0-0.5 mg/dL Aspartate Amino Transferase 24 5-31 U/L Alanine Aminotransferase 21 0-31 U/L Total Protein 7.0 6.5-8.0 g/dL Albumin Level 4.2 3.5-5.0 g/dL Alkaline Phosphatase 78 39-117 U/L Complete Blood Count Auto Di ff Reviewed date:11/21/2024 11:37:43 PM Interpretation: Performing Lab:[facility], [address] [place] [phone] Notes/Report: White Blood Count 8.7 4.8-10.8 X10*3/uL [...] Panel Reviewed date:11/21/2024 11:37:10 PM Interpretation: Performing Lab:[facility], [address] [place] [phone] Notes/Report: Bilirubin Total 0.3 0.0-1.0 mg/dL Bilirubin Direct 0.1 0.0-0.5 mg/dL Aspartate Amino Transferase 18 5-31 U/L Alanine Aminotransferase 8 0-31 U/L Total Protein 7.1 6.5-8.0 g/dL Albumin Level 3.6 3.5-5.0 g/dL Alkaline Phosphatase 108 39-117 U/L Complete Blood Count Auto Di ff Reviewed date:12/25/2024 07:52:26 PM Interpretation: Performing Lab:[facility], [address] [place] [phone] Notes/Report: White Blood Count 5.3 4.8-10.8 X10*3/uL [...] Panel Reviewed date:12/25/2024 07:51:21 PM Interpretation: Performing Lab:[facility], [address] [place] [phone] Notes/Report: Bilirubin Total 0.5 0.0-1.0 mg/dL Bilirubin Direct 0.2 0.0-0.5 mg/dL Aspartate Amino Transferase 22 5-31 U/L Alanine Aminotransferase 13 0-31 U/L Total Protein 6.8 6.5-8.0 g/dL Albumin Level 4.0 3.5-5.0 g/dL Alkaline Phosphatase 87 39-117 U/L Reason For Referral No Information Medications Medication SIG (Take, Route, Frequency, Duration) Notes Start Date End Date Status Dicyclomine HCl 10 MG TAKE 1 TO 2 CAPSULES BY MOUTH 4 TIMES A DAY NEEDED FOR ABDOMINAL CRAMPS OR DISCOMFORT FOR 90 DAYS for 90 Active azaTHIOprine 50 MG TAKE 2 TABLETS BY MOUTH EVERY DAY Active traMADol HCl 50mg 1 tablet as needed Orally every 8 hours prn Active Cyanocobalamin 1000 MCG/ML INJECT 1ML EVERY 4 WEEKS Injection for 84 Active busPIRone HCl 10 MG 1 tablet Orally once a day Active Raloxifene HCl Unkno wn Omeprazole 20 MG take 1 capsule by mouth once daily Orally Once a day Active Pentasa 500 MG TAKE 2 CAPSULES BY MOUTH 4 TIMES A DAY 90 DAYS for 90 Brand Name Only , Active Vitamin B-6 100 MG 1 tablet Orally twice a day for 30 days Active Cholestyramine 4 GM/DOSE use anywhere fr om 1/4 to 1 scoop Orally Once or twice a day a needed for diarrhea for 30 days Active Dicyclomine HCl 10 MG TAKE 1 TO 2 CAPSULES BY MOUTH [...] Problem Status W/U Status Risk Notes Problem 723910407 Gastro-esophagea l reflux disease without esophagitis (K21.9) Active confirmed Problem 800675771 Encounter for screening for malignant neoplasm of colon (Z12.11) Active confirmed Problem 102761849 History of adenomatous polyp of colon (Z86.010) Active confirmed Problem 41232877 Weight loss (R63.4) Active confirmed Problem 92778716 Crohn's disease of both small and large intestine without complication (K50.80) Active confirmed Problem 93917624 Crohn's disease of both small and large intestine without complications (K50.80) Active confirmed Problem Diverticular disease of colon (150241392) Diverticulosis of large intestine without perforation or abscess without bleeding (K57.30) Active confirmed Problem 037877513 Irritable bowel syndrome with diarrhea (K58.0) Active confirmed Problem 1879641 Melena (K92.1) Active confirmed Problem 184931620 Encounter for therapeutic drug level monitoring (Z51.81) Active confirmed Problem History of gastrointestinal tract bypass (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) Intestinal bypass and anastomosis status (Z98.0) Active confirmed Problem 83623227 Crohns disease o f both small and large intestine without complication (K50.80) Active confirmed Problem 359158323 History of colon polyps (Z86.010) Active confirmed Problem 944618648 Gallstones (K80.20) Active confirmed Problem Gastroesophageal reflux disease (548166142) GERD (gastroesophageal reflux disease) (K21.9) Active confirmed Problem 988229873 Abdominal pain, generalized (R10.84) Active confirmed Problem 63127119 Diarrhea, unspecified type (R19.7) Active confirmed Problem 062700814 Therapeutic drug monitoring (Z51.81) Active confirmed Problem 25278405 Crohn''s disease of both small and large intestine without complication (K50.80) Active confirmed Problem 60635046 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 Vital Signs Blood pressure diastolic 77 mm Hg 09/27/2024 Height 65 in 09/27/2024 Blood pressure systolic 111 mm Hg 09/27/2024 Weight 130 lbs 09/27/2024 BMI 21.63 kg/m2 09/27/2024 Encounters Encounter Location Date Provider Diagnosis [facility] [address] [place] [phone] 03/22/2024 Neymar Sauer GERD (gastroesophage al reflux disease) K21.9 ; Crohn's disease of both small and large intestine without complications K50.80 and Bile salt-induced diarrhea K90.89 [facility] [address] [place] [phone] 09/27/2024 Neymar Sauer Crohns disease of elkin th small and large intestine without complication K50.80 ; Gastro-esophageal reflux disease without esophagitis K21.9 ; History of adenomatous polyp of colon Z86.010 ; Diarrhea, unspecified type R19.7 and Bile salt-induced diarrhea K90.89 [facility] [address] [place] [phone] 02/22/2024 Neymar Sauer Crohn''s disease of both small and large intestine without complication K50.80 [facility] [address] [place] [phone] 10/28/20[facility] [address] [place] [address] 01/09/2025 Neymar Sauer [facility] [address] [place] [address] 01/11/2025 Neymar Sauer Assessments Encounter Date Diagnosis (ICD [...] Name:Neymar Sauer , 04/11/2025 09:10:00 AM, [address], [address], [place], [address], Insurance Providers Payer Name Payer Address Payer Phone Subscriber Number Group Number Insured Name Patient Relationship to Insured Coverage Start Date Coverage End Date MEDICARE OF [place] [address] [place] [address] [id number] VIVIAN BUNN Self - patient is the insured [employer] ATT[employer] CLAIMS [address] [place] [address] [id number] VIVIAN BUNN Self - patient is [...] the area of the femoral neck Denies NM,DM,CVA,Lung disease,renal dise ase Anxiety GERD--EGD in 04/2007 [...] [place] 04/17/2015 Removed basal call carcinoma from gnosticism Dec 2012 Cyst behind right ear removed November 2012 BTL Benign breast biopsy Crohn's disease in 1989 with right ileoc olectomy with Dr. Lima
== END 2025-01-18 14:13 | disposition home or self-care (01) ==
LOC: HO.US 14:12
PROVIDERS: PCP Internal Medicine; Visit Provider Urology
DX: N20.0 Calculus of kidney (principal)
CPT/HCPCS: 76775

== ENCOUNTER → 2025-01-18 14:30 | Outpatient (BNV) | payer MEDICARE, SELFPAY | PROVIDERS: PCP Internal Medicine; Visit Provider Radiology Diagnostic Radiology | DX: N20.0 Calculus of kidney (principal) | CPT/HCPCS: 76775 ==

== ENCOUNTER 2025-01-23 07:41 | Outpatient (REF) | payer MEDICARE, SELFPAY ==
--- OUTSIDE RECORDS SUMMARY | 2025-01-23 07:44 | XMS_ITS | Patient Health Record ---
Author Organization [facility] Address [address] [place] [address] Care Team Providers Care Accounting Clerk Name Role Phone Po Tae FERRER Primary Care Provider Neymar Sanders [phone] Allergies Allergen (clinical drug ingredient) Drug/Non Drug Allergy documented on EMR Reaction Allergy Type Onset Date Status tetracycline Tetracycline HCl Unknown Drug Allergy Active Darvon Unknown Drug Allergy Active Results Component Value Reference Range Notes Liver Panel Reviewed date:02/22/2024 11:20:19 PM Interpretation: Performing Lab:[facility], [address] [place] [phone] Notes/Report: Bilirubin Total 0.5 0.0-1.0 mg/dL Bilirubin Direct 0.2 0.0-0.5 mg/dL Aspartate Amino Transferase 22 5-31 U/L Alanine Aminotransferase 16 0-31 U/L Total Protein 6.7 6.5-8.0 g/dL Albumin Level 4.0 3.5-5.0 g/dL Alkaline Phosphatase 86 39-117 U/L Complete Blood Count Auto Di ff Reviewed date:03/23/2024 06:59:11 PM Interpretation: Performing Lab:[address] [address] Notes/Report: White Blood Count 3.6 4.8-10.8 X10*3/uL [...] Panel Reviewed date:03/23/2024 06:59:35 PM Interpretation: Performing Lab:[facility], [address] [place] [phone] Notes/Report: Bilirubin Total 0.3 0.0-1.0 mg/dL Bilirubin Direct 0.1 0.0-0.5 mg/dL Aspartate Amino Transferase 27 5-31 U/L Alanine Aminotransferase 17 0-31 U/L Total Protein 6.6 6.5-8.0 g/dL Albumin Level 4.0 3.5-5.0 g/dL Alkaline Phosphatase 91 39-117 U/L MAMMOGRAM DIGITAL BILATERAL SCREEN Reviewed date:03/24/2024 08:32:51 AM Interpretation:Normal Performing Lab: Notes/Report: Normal Complete Blood Count Auto Di ff Reviewed date:04/23/2024 09:32:52 AM Interpretation: Performing Lab:[facility], [address] [place] [phone] Notes/Report: White Blood Count 5.5 4.8-10.8 X10*3/uL [...] Panel Reviewed date:04/23/2024 09:33:16 AM Interpretation: Performing Lab:[facility], [address] [place] [phone] Notes/Report: Bilirubin Total 0.4 0.0-1.0 mg/dL Bilirubin Direct 0.1 0.0-0.5 mg/dL Aspartate Amino Transferase 23 5-31 U/L Alanine Aminotransferase 16 0-31 U/L Total Protein 7.1 6.5-8.0 g/dL Albumin Level 4.3 3.5-5.0 g/dL Alkaline Phosphatase 86 39-117 U/L Complete Blood Count Auto Di ff Reviewed date:05/20/2024 04:02:01 PM Interpretation: Performing Lab:[facility], [address] [place] [phone] Notes/Report: White Blood Count 4.9 4.8-10.8 X10*3/uL [...] Panel Reviewed date:05/20/2024 04:02:33 PM Interpretation: Performing Lab:[facility], [address] [place] [phone] Notes/Report: Bilirubin Total 0.4 0.0-1.0 mg/dL Bilirubin Direct 0.1 0.0-0.5 mg/dL Aspartate Amino Transferase 29 5-31 U/L Alanine Aminotransferase 19 0-31 U/L Total Protein 7.0 6.5-8.0 g/dL Albumin Level 4.1 3.5-5.0 g/dL Alkaline Phosphatase 82 39-117 U/L Complete Blood Count Auto Di ff Reviewed date:06/21/2024 10:33:11 AM Interpretation: Performing Lab:[facility], [address] [place] [phone] Notes/Report: White Blood Count 4.2 4.8-10.8 X10*3/uL [...] Panel Reviewed date:06/21/2024 10:33:28 AM Interpretation: Performing Lab:[address] [phone] Notes/Report: Bilirubin Total 0.4 0.0-1.0 mg/dL Bilirubin Direct 0.1 0.0-0.5 mg/dL Aspartate Amino Transferase 24 5-31 U/L Alanine Aminotransferase 24 0-31 U/L Total Protein 7.3 6.5-8.0 g/dL Albumin Level 4.2 3.5-5.0 g/dL Alkaline Phosphatase 87 39-117 U/L Complete Blood Count Auto Di ff Reviewed date:07/22/2024 05:28:16 PM Interpretation: Performing Lab:[facility], [address] [place] [phone] Notes/Report: White Blood Count 5.1 4.8-10.8 X10*3/uL [...] Panel Reviewed date:07/26/2024 06:49:01 PM Interpretation: Performing Lab:[address] [address] Notes/Report: Sodium 139 135-145 mmol/L Potassium 3.9 [...] Panel Reviewed date:07/26/2024 06:49:13 PM Interpretation: Performing Lab:[address] [address] Notes/Report: Bilirubin Direct 0.2 0.0-0.5 mg/dL IRON PROFILE Reviewed date:07/26/2024 06:49:29 PM Interpretation: Performing Lab:[address] [address] Notes/Report: Iron 94 30-160 mcg/dL Total Iron Binding Capacity 257 228-428 mcg/d L Percent Iron Saturation 37 15-50 % Unsaturated Iron Binding 163 Lipid Panel Reviewed date:07/26/2024 06:49:37 PM Interpretation: Performing Lab:[facility], [address] [place] [phone] Notes/Report: Triglycerides 72 <150 mg/dL Desirable Triglyceride: [...] Hormone Reviewed date:07/26/2024 06:49:57 PM Interpretation: Performing Lab:[facility], [address] [place] [phone] Notes/Report: Thyroid Stimulating Hormone 1.50 0.32-4.0 uIU/ mL TSH 3rd Generation ([employer]) Complete Blood Count Auto Di ff Reviewed date:09/19/2024 08:11:23 PM Interpretation: Performing Lab:[facility], [address] [place] [phone] Notes/Report: White Blood Count 4.4 4.8-10.8 X10*3/uL [...] Panel Reviewed date:09/19/2024 08:10:44 PM Interpretation: Performing Lab:[address] [address] Notes/Report: Bilirubin Total 0.5 0.0-1.0 mg/dL Bilirubin Direct 0.2 0.0-0.5 mg/dL Aspartate Amino Transferase 30 5-31 U/L Alanine Aminotransferase 19 0-31 U/L Total Protein 6.9 6.5-8.0 g/dL Albumin Level 4.3 3.5-5.0 g/dL Alkaline Phosphatase 82 39-117 U/L Complete Blood Count Auto Di ff Reviewed date:10/20/2024 09:57:22 PM Interpretation: Performing Lab:[address] [address] Notes/Report: White Blood Count 5.2 4.8-10.8 X10*3/uL [...] Panel Reviewed date:10/20/2024 09:09:23 AM Interpretation: Performing Lab:[address] [address] Notes/Report: Bilirubin Total 0.4 0.0-1.0 mg/dL Bilirubin Direct 0.2 0.0-0.5 mg/dL Aspartate Amino Transferase 24 5-31 U/L Alanine Aminotransferase 21 0-31 U/L Total Protein 7.0 6.5-8.0 g/dL Albumin Level 4.2 3.5-5.0 g/dL Alkaline Phosphatase 78 39-117 U/L Complete Blood Count Auto Di ff Reviewed date:11/21/2024 11:37:43 PM Interpretation: Performing Lab:[address], [place] [address] Notes/Report: White Blood Count 8.7 4.8-10.8 X10*3/uL [...] Panel Reviewed date:11/21/2024 11:37:10 PM Interpretation: Performing Lab:[address] [address] Notes/Report: Bilirubin Total 0.3 0.0-1.0 mg/dL Bilirubin Direct 0.1 0.0-0.5 mg/dL Aspartate Amino Transferase 18 5-31 U/L Alanine Aminotransferase 8 0-31 U/L Total Protein 7.1 6.5-8.0 g/dL Albumin Level 3.6 3.5-5.0 g/dL Alkaline Phosphatase 108 39-117 U/L Complete Blood Count Auto Di ff Reviewed date:12/25/2024 07:52:26 PM Interpretation: Performing Lab:[address] [address] Notes/Report: White Blood Count 5.3 4.8-10.8 X10*3/uL [...] Panel Reviewed date:12/25/2024 07:51:21 PM Interpretation: Performing Lab:[facility], [address] [place] [phone] Notes/Report: Bilirubin Total 0.5 0.0-1.0 mg/dL Bilirubin [...] Problem Status W/U Status Risk Notes Problem 883432631 Gastro-esophagea l reflux disease without esophagitis (K21.9) Active confirmed Problem 328478449 Encounter for screening for malignant neoplasm of colon (Z12.11) Active confirmed Problem 980582217 History of adenomatous polyp of colon (Z86.010) Active confirmed Problem 86200072 Weight loss (R63.4) Active confirmed Problem 78349265 Crohn's disease of both small and large intestine without complication (K50.80) Active confirmed Problem 79612813 Crohn's disease of both small and large intestine without complications (K50.80) Active confirmed Problem Diverticular disease of colon (492194250) Diverticulosis of large intestine without perforation or abscess without bleeding (K57.30) Active confirmed Problem 365839889 Irritable bowel syndrome with diarrhea (K58.0) Active confirmed Problem 7106530 Melena (K92.1) Active confirmed Problem 135535854 Encounter for therapeutic drug level monitoring (Z51.81) Active confirmed Problem History of gastrointestinal tract bypass (645907515) Intestinal bypass and anastomosis status (Z98.0) Active confirmed Problem 57573248 Crohns disease o f both small and large intestine without complication (K50.80) Active confirmed Problem 156117995 History of colon polyps (Z86.010) Active confirmed Problem 277977523 Gallstones (K80.20) Active confirmed Problem Gastroesophageal reflux disease (754543083) GERD (gastroesophageal reflux disease) (K21.9) Active confirmed Problem 079324849 Abdominal pain, generalized (R10.84) Active confirmed Problem 02427805 Diarrhea, unspecified type (R19.7) Active confirmed Problem 009716774 Therapeutic drug monitoring (Z51.81) Active confirmed Problem 64016143 Crohn''s disease of both small and large intestine without complication (K50.80) Active confirmed Problem 46765235 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 Vital Signs Blood pressure diastolic 77 mm Hg 09/27/2024 Height 65 in 09/27/2024 Blood pressure systolic 111 mm Hg 09/27/2024 Weight 130 lbs 09/27/2024 BMI 21.63 kg/m2 09/27/2024 Encounters Encounter Location Date Provider Diagnosis [facility] [address] [place] [phone] 03/22/2024 Neymar Sauer GERD (gastroesophage al reflux disease) K21.9 ; Crohn's disease of both small and large intestine without complications K50.80 and Bile salt-induced diarrhea K90.89 [facility] [address] [address] 09/27/2024 Neymar Sauer Crohns disease of elkin th small and large intestine without complication K50.80 ; Gastro-esophageal reflux disease without esophagitis K21.9 ; History of adenomatous polyp of colon Z86.010 ; Diarrhea, unspecified type R19.7 and Bile salt-induced diarrhea K90.89 [facility] [address] [place] [phone] 02/22/2024 Neymar Sauer Crohn''s disease of both small and large intestine without complication K50.80 [facility] [address] [address] 10/28/2024 Neymar Sauer [facility] [address] [place] [phone] 01/09/2025 Neymar Sauer [facility] [address] [place] [phone] 01/11/2025 Neymar Sauer Assessments Encounter Date Diagnosis [...] adjust as needed for the diarrhea Overall, Viivan appears quite well. It does appear that [...] Appt Details Provider Name:Neymar Mckeon Sauer , 04/11/2025 09:10:00 AM, [address] [place] [address], [place] [address], [place], [address], Insurance Providers Payer Name Payer Address Payer Phone Subscriber Number Group Number Insured Name Patient Relationship to Insured Coverage Start Date Coverage End Date MEDICARE OF [place] [address] [place] [id number] [id number] VIVIAN BUNN Self - patient is the insured MED[employer] ATTN CLAIMS [address] [place] [phone] [id number] VIVIAN BUNN Self - patient is [...] the area of the femoral neck Denies CA,DM,CVA,Lung disease,renal dise ase Anxiety GERD--EGD in 04/2007 [...] Leahy 04/17/2015 Removed basal call carcinoma from [facility] Dec 2012 Cyst behind right ear removed November 2012 BTL Benign breast biopsy Crohn's disease in 1989 with right ileoc olectomy with Dr. Lima
[2025-01-23 08:06] LABS: MANUAL DIFF FLAG NO
[2025-01-23 08:29] LABS: Hematocrit 34.2 % (37.0-47.0); Hemoglobin 11.1 g/dl (12.0-16.0); Imm Gran Abs Auto 0.02 X10*3/uL (0.00-0.03); Imm Gran Pct Auto 0.4 % (0.0-0.4); Lymphocytes Absolute Auto 1.1 X10*3/uL (1.2-4.9); Mean Corpuscular HGB Conc 32.5 g/dl (31.0-35.0); Mean Corpuscular Hemoglobin 35.5 pg (27.0-33.0); Mean Corpuscular Volume 109.3 fL (80.0-98.0); NRBC Abs Auto 0.000 X10*3/uL (0.0-0.012); NRBC Pct Auto 0.0 /100WBC (0.0-0.2); Platelet Count 305 X10*3/uL (160-400); Red Blood Count 3.13 X10*6/uL (4.20-5.50); White Blood Count 4.5 X10*3/uL (4.8-10.8)
[2025-01-23 09:00] LABS: Alanine Aminotransferase 15 U/L (0-31); Albumin Level 4.0 g/dL (3.5-5.0); Alkaline Phosphatase 94 U/L (39-117); Aspartate Amino Transferase 25 U/L (5-31); Total Protein 6.7 g/dL (6.5-8.0)
== END 2025-01-23 07:42 | disposition home or self-care (01) ==
LOC: HO.LABR 07:41
PROVIDERS: PCP Internal Medicine; Visit Provider Internal Medicine
DX: K50.80 Crohn's disease of both small and large intestine without complications (principal)
CPT/HCPCS: 36415; 80076; 85025; 96372; J3420

== ENCOUNTER 2025-01-23 08:19 | Outpatient (AMB) | payer MEDICARE, SELFPAY ==
--- NOTE | 2025-01-23 08:39 | AM.OFFVISNUR ---
Intake Visit Reasons: B12 Shot Allergies Darvon Allergy (Intermediate, Verified 01/06/25 11:11) oral swelling Doxycycline Hyclate Allergy (Intermediate, Verified 01/06/25 11:11) diarrhea, severe diarrhea tetracycline (TETRACYCLINE) Allergy (Intermediate, Verified 01/06/25 11:11) Itching Office Meds cyanocobalamin (vitamin B-12) 1,000 mcg/mL injection solution Performing Provider: Tae Duarte MD [facility] Administered by: Elvi Almonte LPN on 01/23/25 08:39 Dose Route Admin Location Dispensed Lot Number Expiration Date [facility] Health Evaluator 1,000 mcg IM left deltoid 1 mL [id number] 02/28/26 23729-406-13 amaysim Total Dispensed Waste 1 mL 0 % Assessment & Plan Assessment & Plan Orders: Orders AMB Vitamin B12 Injection Patient Supplied Today E53.8 - Deficiency of other specified B group vitamins Coding
== END 2025-01-23 08:37 | disposition home or self-care (01) ==
LOC: HO.HMCH 08:19
PROVIDERS: PCP Internal Medicine; Visit Provider Internal Medicine
DX: E53.8 Deficiency of other specified B group vitamins (principal)

== ENCOUNTER 2025-01-26 11:02 | Outpatient (AMB) | payer MEDICARE, SELFPAY ==
--- NOTE | 2025-01-26 11:07 | MHC.OFFVIS ---
Intake Visit Reasons: ESWL follow up/US Intake Note: Patient is present for follow up Urology Medication:VITAMIN B12,VITAMIN B6 Antibiotic Allergy:DOXYCYCLINE,TETRACYCLINE Blood Thinner:APIXABAN Imaging done : Ultrasound 01/18/25 Electrophysiology Scientist Required: No Accompanied by: Self / Same As Patient Allergies Darvon Allergy (Intermediate, Verified 01/26/25 11:18) oral swelling Doxycycline Hyclate Allergy (Intermediate, Verified 01/26/25 11:18) diarrhea, severe diarrhea tetracycline (TETRACYCLINE) Allergy (Intermediate, Verified 01/26/25 11:18) Itching HPI Comments Details: Vivian is a pleasant female. She is a patient of Dr. Duarte. She is seen for the following urologic conditions - nephrolithiasis - pyelonephritis Nephrolithiasis Initial presentation through hospital with pyelonephritis Imaging - 11/23 6 mm calculus within the left renal pelvis. This does not appear to be obstructive. There is mild pelviectasis. The left kidney is mildly enlarged. There are 2 additional tiny nonobstructive calculi within the left kidney. - 01/23 renal ultrasound - small fragments Interventions - 11/23 left stent placement with follow-up ESWL Had been started on vitamin-C and methenamine for inflamed bladder PFSH Medical History Afib Cellulitis and abscess of other specified site Osteoporosis Nicotine dependence, cigarettes, uncomplicated Breast cancer screening by mammogram Lip abscess Palpitations Flank pain Basal cell carcinoma Peptic ulcer disease Renal calculi Vitamin D deficiency Impaired glucose tolerance Anxiety and depression Anemia Asthma GERD (gastroesophageal reflux disease) Crohn's disease Surgical History History of tooth extraction History of surgical removal of ganglion cyst Hx of lithotripsy Hx of dilation and curettage Hx of cystoscopy History of hysteroscopy History of colonoscopy History of cholecystectomy Hx of appendectomy H/O tubal ligation History of lumpectomy of left breast S/P small bowel resection Social History Household Members: Significant Other Housing: House Alcohol intake: current Alcohol intake frequency: holidays/special occasions only Patient Tobacco Use Status: Current everyday Tobacco user Tobacco use type: Cigarette Cigarette Packs Per Day: 1 Cigarettes Per Day: 5 Years Smoked: 50 e-Cigarette/Vaping Use: Never Used Second Hand Smoke Exposure: Yes Advance Directives Date on File: 10/25/24 service: No Current occupational status: 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 Cognitive needs: No Hearing needs: No Vision needs: Yes Review of Systems Const Denies chills and Denies fever(s) Card Reports no additional complaints and Denies syncope Resp Denies cough GI Denies abdominal pain and Denies heartburn Reports as per HPI and Denies change in libido Neuro Denies syncope Psych Denies change in libido Endo Denies change in libido Physical Exam Const General: cooperative, healthy appearing, comfortable and no acute distress Orientation/consciousness: patient oriented x3 HEENT Face and sinus: Yes normal facial exam Mouth: moist mucous membranes Neck Neck: Yes normal visual inspection, Yes full ROM and Yes trachea midline Chest Chest palpation & inspection: normal inspection of the chest Resp Effort & Inspection: normal respiratory effort, able to speak in complete sentences and no respiratory distress GI Inspection: Yes normal to inspection Back/Spine/Pelvis Cervical Spine: normal cervical lordosis Thoracic/Lumbar Spine: thoracic and lumbar spine normal to inspection Skin General skin exam: no rashes or lesions noted Neuro General: patient oriented x3, gait normal, tone normal and moves all extremities Extrem General: Yes normal to inspection and Yes capillary refill normal Assessment & Plan Assessment & Plan (1) Renal calculi: Code(s): N20.0 - Calculus of kidney Category: Medical Plan Six-month follow-up imaging Orders: Orders US renal BI 6 Months N20.0 - Calculus of kidney Medications: Refilled pyridoxine (vitamin B6) 100 mg PO DAILY 90 tabs 3RF N20.0 - Calculus of kidney Patient Instructions: This note is constructed using voice recognition software. While every effort has been made to ensure accuracy heating and cooling technician errors may have been included. Imaging studies, laboratory and physical exam results were discussed and reviewed in detail. No major barriers to patient understanding were identified. An opportunity to ask questions regarding the treatment plan was provided. All questions were answered. The patient expressed understanding and agreement with the above treatment plan. The patient is aware they should contact our office by phone for worsening of their current condition or the appearance of new urologic symptoms. Compliance is encouraged with any medications and followup testing that is ordered. It is a privilege to participate in the urologic care of your patient. If you have any questions or concerns regarding treatment for the above conditions, or other urologic issues, please do not hesitate to contact me. The office telephone contact is [phone]. Sincerely, Dr Eliazar Mcfarlane MD, [facility] - Urology Compassionate Specialist Care for the Genitourinary System Coding Level of Care Code Est Pt Level 3 (26338) Complex EM visit Add On G2211 Diagnoses Renal calculi N20.0
--- OUTSIDE RECORDS SUMMARY | 2025-01-26 12:25 | XMS_ITS | Patient Health Record ---
Author Organization [facility] Address [address] [place] [address] Care Team Providers Care Director Of Exhibit Development Name Role Phone Po Tae FERRER Primary Care Provider Neymar Sanders [phone] Allergies Allergen (clinical drug ingredient) Drug/Non Drug Allergy documented on EMR Reaction Allergy Type Onset Date Status tetracycline Tetracycline HCl Unknown Drug Allergy Active Darvon Unknown Drug Allergy Active Results Component Value Reference Range Notes Liver Panel Reviewed date:02/22/2024 11:20:19 PM Interpretation: Performing Lab:[facility], [address] [place] [address] Notes/Report: Bilirubin Total 0.5 0.0-1.0 mg/dL Bilirubin Direct 0.2 0.0-0.5 mg/dL Aspartate Amino Transferase 22 5-31 U/L Alanine Aminotransferase 16 0-31 U/L Total Protein 6.7 6.5-8.0 g/dL Albumin Level 4.0 3.5-5.0 g/dL Alkaline Phosphatase 86 39-117 U/L Complete Blood Count Auto Di ff Reviewed date:03/23/2024 06:59:11 PM Interpretation: Performing Lab:[address] [address] Notes/Report: White Blood Count 3.6 4.8-10.8 X10*3/uL [...] Panel Reviewed date:03/23/2024 06:59:35 PM Interpretation: Performing Lab:[facility], [address] [place] [address] Notes/Report: Bilirubin Total 0.3 0.0-1.0 mg/dL Bilirubin Direct 0.1 0.0-0.5 mg/dL Aspartate Amino Transferase 27 5-31 U/L Alanine Aminotransferase 17 0-31 U/L Total Protein 6.6 6.5-8.0 g/dL Albumin Level 4.0 3.5-5.0 g/dL Alkaline Phosphatase 91 39-117 U/L MAMMOGRAM DIGITAL BILATERAL SCREEN Reviewed date:03/24/2024 08:32:51 AM Interpretation:Normal Performing Lab: Notes/Report: Normal Complete Blood Count Auto Di ff Reviewed date:04/23/2024 09:32:52 AM Interpretation: Performing Lab:[facility], [address] [place] [address] Notes/Report: White Blood Count 5.5 4.8-10.8 X10*3/uL [...] Panel Reviewed date:04/23/2024 09:33:16 AM Interpretation: Performing Lab:[facility], [address] [place] [address] Notes/Report: Bilirubin Total 0.4 0.0-1.0 mg/dL Bilirubin Direct 0.1 0.0-0.5 mg/dL Aspartate Amino Transferase 23 5-31 U/L Alanine Aminotransferase 16 0-31 U/L Total Protein 7.1 6.5-8.0 g/dL Albumin Level 4.3 3.5-5.0 g/dL Alkaline Phosphatase 86 39-117 U/L Complete Blood Count Auto Di ff Reviewed date:05/20/2024 04:02:01 PM Interpretation: Performing Lab:[facility], [address] [place] [phone] Notes/Report: White Blood Count 4.9 4.8-10.8 X10*3/uL [...] Panel Reviewed date:05/20/2024 04:02:33 PM Interpretation: Performing Lab:[facility], [address] [place] [address] Notes/Report: Bilirubin Total 0.4 0.0-1.0 mg/dL Bilirubin Direct 0.1 0.0-0.5 mg/dL Aspartate Amino Transferase 29 5-31 U/L Alanine Aminotransferase 19 0-31 U/L Total Protein 7.0 6.5-8.0 g/dL Albumin Level 4.1 3.5-5.0 g/dL Alkaline Phosphatase 82 39-117 U/L Complete Blood Count Auto Di ff Reviewed date:06/21/2024 10:33:11 AM Interpretation: Performing Lab:[facility], [address] [place] [address] Notes/Report: White Blood Count 4.2 4.8-10.8 X10*3/uL [...] Panel Reviewed date:06/21/2024 10:33:28 AM Interpretation: Performing Lab:[address] [phone] Notes/Report: Bilirubin Total 0.4 0.0-1.0 mg/dL Bilirubin Direct 0.1 0.0-0.5 mg/dL Aspartate Amino Transferase 24 5-31 U/L Alanine Aminotransferase 24 0-31 U/L Total Protein 7.3 6.5-8.0 g/dL Albumin Level 4.2 3.5-5.0 g/dL Alkaline Phosphatase 87 39-117 U/L Complete Blood Count Auto Di ff Reviewed date:07/22/2024 05:28:16 PM Interpretation: Performing Lab:[facility], [address] [place] [address] Notes/Report: White Blood Count 5.1 4.8-10.8 X10*3/uL [...] Panel Reviewed date:07/26/2024 06:49:01 PM Interpretation: Performing Lab:[address] [address] Notes/Report: Sodium 139 135-145 mmol/L Potassium 3.9 [...] Panel Reviewed date:07/26/2024 06:49:13 PM Interpretation: Performing Lab:[address] [address] Notes/Report: Bilirubin Direct 0.2 0.0-0.5 mg/dL IRON PROFILE Reviewed date:07/26/2024 06:49:29 PM Interpretation: Performing Lab:[address] [address] Notes/Report: Iron 94 30-160 mcg/dL Total Iron Binding Capacity 257 228-428 mcg/d L Percent Iron Saturation 37 15-50 % Unsaturated Iron Binding 163 Lipid Panel Reviewed date:07/26/2024 06:49:37 PM Interpretation: Performing Lab:[facility], [address] [place] [phone] Notes/Report: Triglycerides 72 <150 mg/dL Desirable Triglyceride: [...] Hormone Reviewed date:07/26/2024 06:49:57 PM Interpretation: Performing Lab:[facility], [address] [place] [address] Notes/Report: Thyroid Stimulating Hormone 1.50 0.32-4.0 uIU/ mL TSH 3rd Generation ([employer]) Complete Blood Count Auto Di ff Reviewed date:09/19/2024 08:11:23 PM Interpretation: Performing Lab:[facility], [address] [place] [phone] Notes/Report: White Blood Count 4.4 4.8-10.8 X10*3/uL [...] Panel Reviewed date:09/19/2024 08:10:44 PM Interpretation: Performing Lab:[address] [address] Notes/Report: Bilirubin Total 0.5 0.0-1.0 mg/dL Bilirubin Direct 0.2 0.0-0.5 mg/dL Aspartate Amino Transferase 30 5-31 U/L Alanine Aminotransferase 19 0-31 U/L Total Protein 6.9 6.5-8.0 g/dL Albumin Level 4.3 3.5-5.0 g/dL Alkaline Phosphatase 82 39-117 U/L Complete Blood Count Auto Di ff Reviewed date:10/20/2024 09:57:22 PM Interpretation: Performing Lab:[address] [address] Notes/Report: White Blood Count 5.2 4.8-10.8 X10*3/uL [...] Panel Reviewed date:10/20/2024 09:09:23 AM Interpretation: Performing Lab:[address] [address] Notes/Report: Bilirubin Total 0.4 0.0-1.0 mg/dL Bilirubin Direct 0.2 0.0-0.5 mg/dL Aspartate Amino Transferase 24 5-31 U/L Alanine Aminotransferase 21 0-31 U/L Total Protein 7.0 6.5-8.0 g/dL Albumin Level 4.2 3.5-5.0 g/dL Alkaline Phosphatase 78 39-117 U/L Complete Blood Count Auto Di ff Reviewed date:11/21/2024 11:37:43 PM Interpretation: Performing Lab:[address], [place] [address] Notes/Report: White Blood Count 8.7 4.8-10.8 X10*3/uL [...] Panel Reviewed date:11/21/2024 11:37:10 PM Interpretation: Performing Lab:[address] [address] Notes/Report: Bilirubin Total 0.3 0.0-1.0 mg/dL Bilirubin Direct 0.1 0.0-0.5 mg/dL Aspartate Amino Transferase 18 5-31 U/L Alanine Aminotransferase 8 0-31 U/L Total Protein 7.1 6.5-8.0 g/dL Albumin Level 3.6 3.5-5.0 g/dL Alkaline Phosphatase 108 39-117 U/L Complete Blood Count Auto Di ff Reviewed date:12/25/2024 07:52:26 PM Interpretation: Performing Lab:[address] [address] Notes/Report: White Blood Count 5.3 4.8-10.8 X10*3/uL [...] Panel Reviewed date:12/25/2024 07:51:21 PM Interpretation: Performing Lab:[facility], [address] [place] [address] Notes/Report: Bilirubin Total 0.5 0.0-1.0 mg/dL Bilirubin Direct 0.2 0.0-0.5 mg/dL Aspartate Amino Transferase 22 5-31 U/L Alanine Aminotransferase 13 0-31 U/L Total Protein 6.8 6.5-8.0 g/dL Albumin Level 4.0 3.5-5.0 g/dL Alkaline Phosphatase 87 39-117 U/L Complete Blood Count Auto Di ff Reviewed date:01/23/2025 11:02:15 PM Interpretation: Performing Lab:[facility], [address] [place] [address] Notes/Report: White Blood Count 4.5 4.8-10.8 X10*3/uL Red Blood Count 3.13 4.20-5.50 X10*6/uL Hemoglobin 11.1 12.0-16.0 g/dl Hematocrit 34.2 37.0-47.0 % Mean Corpuscular Volume 109.3 80.0-98.0 fL Mean Corpuscular Hemoglobin 35.5 27.0-33.0 pg Mean Corpuscular HGB Conc 32.5 31.0-35.0 g/dl Red Cell Distribution Width 17.9 11.0-16.0 % Platelet Count 305 160-400 X10*3/uL Mean Platelet Volume 9.9 9.4-12.3 fL Neutrophils Percent Auto 58.1 45-73 % Imm Gran Pct Auto 0.4 0.0-0.4 % Lymphocytes Percent Auto 25.0 20-40 % Monocytes Percent Auto 9.8 2-11 % Eosinophils Percent Auto 4.9 0-4 % Basophils Percent Auto 1.8 0-2 % NRBC Pct Auto 0.0 0.0-0.2 /100WBC Neutrophils Absolute Auto 2.6 2.0-8.3 x10*3/u L Imm Gran Abs Auto 0.02 0.00-0.03 X10*3/uL Lymphocytes Absolute Auto 1.1 1.2-4.9 X10*3/u L Monocytes Absolute Auto 0.4 0.1-1.2 X10*3/uL Eosinophils Absolute Auto 0.2 0.0-0.4 X10*3/u L Basophils Absolute Auto 0.1 0.0-0.2 X10*3/uL NRBC Abs Auto 0.000 0.0-0.012 X10*3/uL Liver Panel Reviewed date:01/23/2025 11:00:07 PM Interpretation: Performing Lab:[facility], [address] [place] [address] Notes/Report: Bilirubin Total 0.4 0.0-1.0 mg/dL Bilirubin Direct 0.2 0.0-0.5 mg/dL Aspartate Amino Transferase 25 5-31 U/L Alanine Aminotransferase 15 0-31 U/L Total Protein 6.7 6.5-8.0 g/dL Albumin Level 4.0 3.5-5.0 g/dL Alkaline Phosphatase 94 39-117 U/L Reason For Referral No Information [...] Problem Status W/U Status Risk Notes Problem 459632731 Gastro-esophagea l reflux disease without esophagitis (K21.9) Active confirmed Problem 851577403 Encounter for screening for malignant neoplasm of colon (Z12.11) Active confirmed Problem 278502796 History of adenomatous polyp of colon (Z86.010) Active confirmed Problem 95498500 Weight loss (R63.4) Active confirmed Problem 37541178 Crohn's disease of both small and large intestine without complication (K50.80) Active confirmed Problem 24693958 Crohn's disease of both small and large intestine without complications (K50.80) Active confirmed Problem Diverticulosis o f large intestine without perforation or abscess without bleeding (K57.30) Active confirmed Problem 985553135 Irritable bowel syndrome with diarrhea (K58.0) Active confirmed Problem 9837894 Melena (K92.1) Active confirmed Problem 032754002 Encounter for therapeutic drug level monitoring (Z51.81) Active confirmed Problem History of gastrointestinal tract bypass (058939566) Intestinal bypass and anastomosis status (Z98.0) Active confirmed Problem 89906921 Crohns disease o f both small and large intestine without complication (K50.80) Active confirmed Problem 451882555 History of colon polyps (Z86.010) Active confirmed Problem 230792135 Gallstones (K80.20) Active confirmed Problem Gastroesophageal reflux disease (090073223) GERD (gastroesophageal reflux disease) (K21.9) Active confirmed Problem 245012089 Abdominal pain, generalized (R10.84) Active confirmed Problem 83638288 Diarrhea, unspecified type (R19.7) Active confirmed Problem 919772050 Therapeutic drug monitoring (Z51.81) Active confirmed Problem 68091314 Crohn''s disease of both small and large intestine without complication (K50.80) Active confirmed Problem 70413779 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 Vital Signs Blood pressure diastolic 77 mm Hg 09/27/2024 Height 65 in 09/27/2024 Blood pressure systolic 111 mm Hg 09/27/2024 Weight 130 lbs 09/27/2024 BMI 21.63 kg/m2 09/27/2024 Encounters Encounter Location Date Provider Diagnosis [facility] [address] [place] [address] 03/22/2024 Neymar Sauer GERD (gastroesophage al reflux disease) K21.9 ; Crohn's disease of both small and large intestine without complications K50.80 and Bile salt-induced diarrhea K90.89 [facility] [address] [place] [address] 09/27/2024 Neymar Sauer Crohns disease of elkin th small and large intestine without complication K50.80 ; Gastro-esophageal reflux disease without esophagitis K21.9 ; History of adenomatous polyp of colon Z86.010 ; Diarrhea, unspecified type R19.7 and Bile salt-induced diarrhea K90.89 [facility] [address] [place] [address] 02/22/2024 Neymar Sauer Crohn''s disease of both small and large intestine without complication K50.80 [facility] [address] [place] [phone] 10/28/2024 Neymar Sauer [facility] [address] [place] [address] 01/09/2025 Neymar Sauer [facility] [address] [place] [address] 01/11/2025 Neymar Sauer Assessments Encounter Date Diagnosis [...] Name:Neymar Sauer , 04/11/2025 09:10:00 AM, [address], [address], [place], [address], Insurance Providers Payer Name Payer Address Payer Phone Subscriber Number Group Number Insured Name Patient Relationship to Insured Coverage Start Date Coverage End Date MEDICARE OF [place] [address] [place] [address] [id number] VIVIAN BUNN Self - patient is the insured [employer] CLAIMS [address] [place] [address] [id number] VIVIAN BUNN Self - patient is [...] Leahy 04/17/2015 Removed basal call carcinoma from tenriism Dec 2012 Cyst behind right ear removed November 2012 BTL Benign breast biopsy Crohn's disease in 1989 with right ileoc olectomy with Dr. Lima
== END 2025-01-26 11:55 | disposition home or self-care (01) ==
LOC: HO.HUSH 11:02
PROVIDERS: PCP Internal Medicine; Visit Provider Urology
DX: N20.0 Calculus of kidney (principal)
CPT/HCPCS: 99024

== ENCOUNTER → 2025-01-26 11:02 | Outpatient (BNVA) | payer MEDICARE, SELFPAY | PROVIDERS: PCP Internal Medicine; Visit Provider Urology | DX: N20.0 Calculus of kidney (principal) | CPT/HCPCS: 99212 ==

== ENCOUNTER 2025-02-20 08:24 | Outpatient (REF) | payer MEDICARE, SELFPAY ==
[2025-02-20 09:07] LABS: MANUAL DIFF FLAG NO
[2025-02-20 09:38] LABS: Hematocrit 36.8 % (37.0-47.0); Hemoglobin 12.2 g/dl (12.0-16.0); Imm Gran Abs Auto 0.01 X10*3/uL (0.00-0.03); Imm Gran Pct Auto 0.2 % (0.0-0.4); Lymphocytes Absolute Auto 1.3 X10*3/uL (1.2-4.9); Mean Corpuscular HGB Conc 33.2 g/dl (31.0-35.0); Mean Corpuscular Hemoglobin 36.3 pg (27.0-33.0); Mean Corpuscular Volume 109.5 fL (80.0-98.0); NRBC Abs Auto 0.000 X10*3/uL (0.0-0.012); NRBC Pct Auto 0.0 /100WBC (0.0-0.2); Platelet Count 288 X10*3/uL (160-400); Red Blood Count 3.36 X10*6/uL (4.20-5.50); White Blood Count 4.8 X10*3/uL (4.8-10.8)
--- OUTSIDE RECORDS SUMMARY | 2025-02-20 10:06 | XMS_ITS ---
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 The lesions have been present for years. She presents today for: evaluation and management. She has a history of actinic keratoses, history of previousskin cancer, and history of basal cell carcinoma but no family history of melanoma and no family history of non-melanoma skin cancer. Concerned about right arm and hand, shoulders Allergies, Adverse Reactions, Alerts Substance RxNorm Reaction(s) Severity Status Start Da te tetracycline unspecified active Darvon unspecified active Medications Medication Generic Name RxNorm Strength Strength Unit Route Dose Dose Form Frequency Date Started Date Ended Status Indication Sig betamethaso ne dipropionat e betameth asone dipropio sharif 598491 0.05 % Topica l cream AM and PM 06/04/19 21 suspend ed Rash Appl y AM and PM back of neck ches t and arms rash for up to 2 week s betamethaso ne dipropionat e betameth asone dipropio sharif 415587 0.05 % Topica l cream AM and PM 02/16/20 25 active Rash Appl y AM and PM back of neck ches t and arms rash for up to 2 week s clindamycin -benzoyl peroxide clindamy pablo-keith oyl peroxide 3352137 1.2 %(1 % base) -5 % Topica l gel QD 10/30/19 23 suspend ed Appl y PM outb reak s chin clindamycin -benzoyl peroxide clindamy pablo-keith oyl peroxide 7695032 1.2 %(1 % base) -5 % Topica l gel Qd 02/16/20 25 active Appl y PM acne face fluocinonid e fluocino nide 454935 0.05 % Topica l solut ion 06/11/19 23 suspend ed Appl y 5-10 drop s to scal p QD-B ID PRN itch and mass age in fluocinonid e fluocino nide 613626 0.05 % Topica l solut ion 02/16/20 25 active Appl y 5-10 drop s to scal p QD-B ID PRN itch and mass age in cyanocobala min (vitamin B-12) 717667 1,000 mcg/mL Inject ion 1 solut ion Once a month active azathioprin e 133743 50 mg Oral 1 table t QD active indigestion buspirone 456457 10 mg Oral 1 table t QD active Anxiety cholestyram ine (with sugar) 643056 4 gram Oral 1 powde r QD active Crohn s cyclobenzap rine 024741 5 mg Oral table t QD suspend ed dicyclomine dicyclom ine 10 mg Oral 2 capsu le 4x active GERD Eliquis apixaban 5 mg Oral 1 table t BID active metoprolol succinate metoprol ol succinat e 25 mg Oral 1/2 Table t, Exten ded Relea se 24 hr qd active Multaq dronedar one 400 mg Oral 1 table t BID active nitrofurant oin nitrofur antoin Oral suspend ed Pentasa 256151 500 mg Oral 1 capsu le, exten ded relea se QD active Crohn s disease pyridoxine (vitamin B6) 860168 100 mg Oral 1 table t QD active raloxifene 5750611 60 mg Oral 1 table t QD active osteo arthritis tramadol 108859 50 mg Oral 1 table t QD active Back pain Vitamin D3 cholecal ciferol (vitamin D3) 10 mcg (400 unit) Oral 1 capsu le QD active Problems Problem Code Type Status Date of Diagnosis Date of Resolution Actinic keratosis (disorder) (S NOMED) Diagnosis active 02/15/2025 Inflamed seborrheic keratosis (disorder) 663432602(S NOMED) Diagnosis active 02/15/2025 Skin changes due to chronic exposure to non-ionizing radiation (disorder) 025472152(S NOMED) Diagnosis active 02/15/2025 Inflammatory dermatosis (disorder) 030730243(S NOMED) Diagnosis active 02/15/2025 History of malignant neoplasm of skin (situation) 616269340(S NOMED) Diagnosis active 02/15/2025 Acne vulgaris (disorder) 06792946(SN OMED) Diagnosis active 02/15/2025 Hemangioma of skin and subcutaneous tissue (disorder) 350507092(S NOMED) Diagnosis active 02/15/2025 Non-thrombocytopenic purpura (disorder) 537521353(S NOMED) Diagnosis active 02/15/2025 Seborrheic keratosis (disorder) 949449270(S NOMED) Diagnosis active 02/15/2025 Disorder of pigmentation (disorder) 291975781(S NOMED) Diagnosis active 02/15/2025 Melanocytic nevus of trunk (disorder) 091282005(S NOMED) Diagnosis active 02/15/2025 Patient encounter status (finding) 052120960(S NOMED) Diagnosis active 02/15/2025 Seborrheic keratosis (disorder) 392895157(S NOMED) Diagnosis active 08/17/2024 Actinic keratosis (disorder) (S NOMED) Diagnosis active 06/29/2024 Nicotine dependence (disorder) 90412491(SN OMED) Diagnosis active 06/29/2024 Seborrheic keratosis (disorder) 776504467(S NOMED) Diagnosis active 06/29/2024 Actinic keratosis (disorder) (S NOMED) Diagnosis active 05/04/2024 Nicotine dependence (disorder) 07250484(SN OMED) Diagnosis active 05/04/2024 Inflammatory dermatosis (disorder) 681593839(S NOMED) Diagnosis active 05/04/2024 Follicular cysts of skin and subcutaneous tissue (disorder) 408755033(S NOMED) Diagnosis active 05/04/2024 Actinic keratosis (disorder) (S NOMED) Diagnosis active 02/03/2024 Inflammatory dermatosis (disorder) 992988676(S NOMED) Diagnosis active 02/03/2024 Actinic keratosis (disorder) (S NOMED) Diagnosis active 12/09/2023 Tinea pedis (disorder) 2672536(SNO MED) Diagnosis active 12/09/2023 Hemangioma of skin and subcutaneous tissue (disorder) 807770338(S NOMED) Diagnosis active 10/02/2023 Seborrheic keratosis (disorder) 913826972(S NOMED) Diagnosis active 10/02/2023 Actinic keratosis (disorder) 266220269(S NOMED) Diagnosis active 10/02/2023 Disorder of pigmentation (disorder) 947961362(S NOMED) Diagnosis active 10/02/2023 Melanocytic nevus of trunk (disorder) 224001660(S NOMED) Diagnosis active 10/02/2023 Tinea pedis (disorder) 7796900(SNO MED) Diagnosis active 10/02/2023 Acne vulgaris (disorder) 21619703(SN OMED) Diagnosis active 10/02/2023 Patient encounter status (finding) 737538843(S NOMED) Diagnosis active 10/02/2023 History of malignant neoplasm of skin (situation) 449533475(S NOMED) Diagnosis active 10/02/2023 Nicotine dependence (disorder) 77118525(SN OMED) Diagnosis active 10/02/2023 Seborrheic keratosis (disorder) 284795518(S NOMED) Diagnosis active 01/14/2023 Neoplasm of uncertain behavior of skin (disorder) 76708269(SN OMED) Diagnosis active 01/14/2023 Neoplasm of uncertain behavior of skin (disorder) 00963021(SN OMED) Diagnosis active 12/12/2022 Surgical follow-up (finding) 008226891(S NOMED) Diagnosis active 12/12/2022 Neoplasm of uncertain behavior of skin (disorder) 44474482(SN OMED) Diagnosis active 12/04/2022 Disorder of skin (disorder) 13858275(SN OMED) Diagnosis active 10/29/2022 Inflamed seborrheic keratosis (disorder) 023945840(S NOMED) Diagnosis active 10/29/2022 Acne vulgaris (disorder) 79186702(SN OMED) Diagnosis active 10/29/2022 Disorder of skin (disorder) 93873616(SN OMED) Diagnosis active 08/22/2022 Inflamed seborrheic keratosis (disorder) 600073686(S NOMED) Diagnosis active 08/22/2022 History of malignant neoplasm of skin (situation) 632925112(S NOMED) Diagnosis active 06/11/2022 Hemangioma of skin and subcutaneous tissue (disorder) 291659406(S NOMED) Diagnosis active 06/11/2022 Seborrheic keratosis (disorder) 262269780(S NOMED) Diagnosis active 06/11/2022 Disorder of pigmentation (disorder) 823454587(S NOMED) Diagnosis active 06/11/2022 Melanocytic nevus of trunk (disorder) 637235151(S NOMED) Diagnosis active 06/11/2022 Patient encounter status (finding) 103975881(S NOMED) Diagnosis active 06/11/2022 Disorder of skin (disorder) 97372002(SN OMED) Diagnosis active 06/11/2022 Callosity (disorder) 489225425(S NOMED) Diagnosis active 06/11/2022 Inflammatory dermatosis (disorder) 670722850(S NOMED) Diagnosis active 06/11/2022 Furuncle (disorder) 698719784(S NOMED) Diagnosis active 06/11/2022 Inflamed seborrheic keratosis (disorder) 644235762(S NOMED) Diagnosis active 08/14/2021 Neoplasm of uncertain behavior of skin (disorder) 93111572(SN OMED) Diagnosis active 08/14/2021 Inflammatory dermatosis (disorder) 880056557(S NOMED) Diagnosis active 08/14/2021 Contusion of right index finger (disorder) 28355224302 239548(SNOM ED) Diagnosis active 08/14/2021 Actinic keratosis (disorder) (S NOMED) Diagnosis active 06/28/2021 Inflamed seborrheic keratosis (disorder) 372888275(S NOMED) Diagnosis active 06/28/2021 Actinic keratosis (disorder) (S NOMED) Diagnosis active 04/22/2021 Inflamed seborrheic keratosis (disorder) 397737590(S NOMED) Diagnosis active 04/22/2021 Furuncle (disorder) 627018855(S NOMED) Diagnosis active 04/22/2021 Hemangioma of skin and subcutaneous tissue (disorder) 377604819(S NOMED) Diagnosis active 04/22/2021 Seborrheic keratosis (disorder) 513912465(S NOMED) Diagnosis active 04/22/2021 Disorder of pigmentation (disorder) 719052357(S NOMED) Diagnosis active 04/22/2021 Melanocytic nevus of trunk (disorder) 644015951(S NOMED) Diagnosis active 04/22/2021 Patient encounter status (finding) 020482466(S NOMED) Diagnosis active 04/22/2021 History of malignant neoplasm of skin (situation) 475471546(S NOMED) Diagnosis active 04/22/2021 Neoplasm of uncertain behavior of skin D48.5(ICD-1 0) Diagnosis active 07/18/2020 Actinic keratosis L57.0(ICD-1 0) Diagnosis active 07/18/2020 Other seborrheic keratosis L82.1(ICD-1 0) Diagnosis active 07/18/2020 Corns and callosities L84(ICD-10) Diagnosis active 2020 Actinic keratosis L57.0(ICD-1 0) Diagnosis active 06/04/2020 Neoplasm of uncertain behavior of skin D48.5(ICD-1 0) Diagnosis active 06/04/2020 Other seborrheic keratosis L82.1(ICD-1 0) Diagnosis active 06/04/2020 Dermatitis, unspecified L30.9(ICD-1 0) Diagnosis active 06/04/2020 Hemangioma of skin and subcutaneous tissue D18.01(ICD- 10) Diagnosis active 04/02/2020 Other seborrheic keratosis L82.1(ICD-1 0) Diagnosis active 04/02/2020 Other melanin hyperpigmentation L81.4(ICD-1 0) Diagnosis active 04/02/2020 Melanocytic nevi of trunk D22.5(ICD-1 0) Diagnosis active 04/02/2020 Personal history of other malignant neoplasm of skin Z85.828(ICD -10) Diagnosis active 04/02/2020 Actinic keratosis L57.0(ICD-1 0) Diagnosis active 04/02/2020 Dermatitis, unspecified L30.9(ICD-1 0) Diagnosis active 04/02/2020 Neoplasm of uncertain behavior of skin D48.5(ICD-1 0) Diagnosis active 04/02/2020 Tinea pedis B35.3(ICD-1 0) Diagnosis active 04/02/2020 Actinic keratosis L57.0(ICD-1 0) Diagnosis active 04/20/2019 Inflamed seborrheic keratosis L82.0(ICD-1 0) Diagnosis active 04/20/2019 Hemangioma of skin and subcutaneous tissue D18.01(ICD- 10) Diagnosis active 03/08/2019 Other seborrheic keratosis L82.1(ICD-1 0) Diagnosis active 03/08/2019 Other melanin hyperpigmentation L81.4(ICD-1 0) Diagnosis active 03/08/2019 Melanocytic nevi of trunk D22.5(ICD-1 0) Diagnosis active 03/08/2019 Personal history of other malignant neoplasm of skin Z85.828(ICD -10) Diagnosis active 03/08/2019 Actinic keratosis L57.0(ICD-1 0) Diagnosis active 03/08/2019 Furuncle, unspecified L02.92(ICD- 10) Diagnosis active 03/08/2019 Inflamed seborrheic keratosis L82.0(ICD-1 0) Diagnosis active 03/08/2019 Neoplasm of uncertain behavior of skin D48.5(ICD-1 0) Diagnosis active 03/08/2019 Other specified health status Z78.9(ICD-1 0) Diagnosis active 08/31/2018 Neoplasm of uncertain behavior of skin (disorder) 66808972(SN OMED) Diagnosis active 08/31/2018 Senile hyperkeratosis (disorder) 446972929(S NOMED) Diagnosis active 03/30/2018 Melanocytic nevus of trunk (disorder) 925358541(S NOMED) Diagnosis active 02/09/2018 Actinic keratosis (disorder) (S NOMED) Diagnosis active 01/05/2018 Actinic keratosis (disorder) (S NOMED) Diagnosis active 11/10/2017 Surgical follow-up (finding) 530519864(S NOMED) Diagnosis active 10/22/2017 Basal cell carcinoma of face (disorder) 070431227(S NOMED) Diagnosis active 10/08/2017 Neoplasm of uncertain behavior of skin (disorder) 52880038(SN OMED) Diagnosis active 09/23/2017 Basal cell carcinoma of face (disorder) 085359094(S NOMED) Diagnosis active 09/22/2017 Neoplasm of uncertain behavior of skin (disorder) 36695385(SN OMED) Diagnosis active 09/01/2017 Other specified health status Z78.9(ICD-1 0) Diagnosis active 06/23/2017 Melanocytic nevus of trunk (disorder) 883526530(S NOMED) Diagnosis active 06/23/2017 Scar conditions and fibrosis of skin (disorder) 646154406(S NOMED) Diagnosis active 02/04/2017 Neoplasm of uncertain behavior of skin (disorder) 50581649(SN OMED) Diagnosis active 11/26/2016 Senile hyperkeratosis (disorder) 029044772(S NOMED) Diagnosis active 05/16/2016 Senile hyperkeratosis (disorder) 871285022(S NOMED) Diagnosis active 11/12/2015 Senile hyperkeratosis (disorder) 166173843(S NOMED) Diagnosis active 05/10/2015 Scar conditions and fibrosis of skin (disorder) 190897322(S NOMED) Diagnosis active 07/05/2014 Basal cell carcinoma of skin of lip (disorder) 639754063(S NOMED) Diagnosis active 06/21/2014 Actinic keratosis (disorder) 941771733(S NOMED) Diagnosis active 05/18/2014 Epidermoid cyst of skin (disorder) 711460108(S NOMED) Diagnosis active 01/16/2014 History of clinical finding in subject (situation) 287957189(S NOMED) Problem active Anxiety disorder (disorder) 520614045(S NOMED) Problem active Arthritis (disorder) 3066562(SNO MED) Problem active Kidney stone (disorder) 96279384(SN OMED) Problem active Acne (disorder) 17649795(SN OMED) Problem active Asteatosis cutis (disorder) 46249179(SN OMED) Problem active Dysplastic nevus of skin (disorder) 383913080(S NOMED) Problem active Crohn's disease (disorder) 47732687(SN OMED) Problem active Diverticulitis (morphologic abnormality) 64212442(SN OMED) Problem active Herniated structure (morphologic abnormality) 273602283(S NOMED) Problem active Basal cell carcinoma of skin (disorder) 189905130(S NOMED) Problem active Squamous cell carcinoma (disorder) 850688694(S NOMED) Problem active Results No data Encounters Service provided at [address], [address], [place], [place] [id number]. Office phonenumber is [phone]. Office fax number is [phone]. Encounter Diagnosis Location Date / Time Type Actinic Keratosis (L57.0)Irr itated Seborrheic Keratosis (L82.0)Actinic Damage (L57.8)Dermatitis Unspecified (L30.9)History of Basal Cell Carcinoma (Z85.828)Acne (L70.0)Bryant Angiomas (D18.01)Purpura (D69.2)Seborrheic Keratoses (L82.1)Lentigines (L81.4)Benign Nevi (D22.5)Skin Education (Z71.89) [facility] 02/15/2025 13:00:00 UTC [id number] Reason For Referral No data Procedures Procedure Date Cryotherapy of skin lesion with liquid n itrogen (procedure) 02/15/2025 12:00 am UTC Destruction of premalignant skin lesion (procedure) 02/15/2025 12:00 am UTC Cryotherapy of skin lesion with liquid n itrogen (procedure) 08/17/2024 12:00 am UTC Smoking cessation education (procedure) 08/17/2024 12:00 am UTC Smoking effects education (procedure) 12:00 am UTC Cryotherapy of skin lesion with liquid n itrogen (procedure) 06/29/2024 12:00 am UTC Smoking effects education (procedure) 12:00 am UTC Destruction of premalignant skin lesion (procedure) 05/04/2024 12:00 am UTC Incision and drainage of skin (procedure ) 05/04/2024 12:00 am UTC Destruction of premalignant skin lesion (procedure) 02/03/2024 12:00 am UTC Destruction of premalignant skin lesion (procedure) 12/09/2023 12:00 am UTC Smoking effects education (procedure) 12:00 am UTC Destruction of premalignant skin lesion (procedure) 10/02/2023 12:00 am UTC Cryotherapy of skin lesion with liquid n itrogen (procedure) 01/14/2023 12:00 am UTC Punch biopsy (procedure) 12/04/2022 12:0 0 am UTC Cryotherapy of skin lesion with liquid n itrogen (procedure) 10/29/2022 12:00 am UTC Cryotherapy of skin lesion with liquid n itrogen (procedure) 08/22/2022 12:00 am UTC Cryotherapy of skin lesion with liquid n itrogen (procedure) 06/11/2022 12:00 am UTC Cryotherapy of skin lesion with liquid n itrogen (procedure) 06/28/2021 12:00 am UTC Cryotherapy of skin lesion with liquid n itrogen (procedure) 04/22/2021 12:00 am UTC Cryotherapy of skin lesion with liquid n itrogen (procedure) 06/04/2020 12:00 am UTC Cryotherapy of skin lesion with liquid n itrogen (procedure) 04/02/2020 12:00 am UTC History of cholecystectomy (situation) Documentation of past medical history (p rocedure) Excision of squamous cell carcinoma (pro cedure) History of appendectomy (situation) Lumpectomy of left breast (procedure) Lumpectomy of left breast (procedure) History of cholecystectomy (situation) History of appendectomy (situation) Excision of squamous cell carcinoma (pro cedure) Documentation of past medical history (p rocedure) Excision of squamous cell carcinoma (pro cedure) Documentation of past medical history (p rocedure) History of appendectomy (situation) History of cholecystectomy (situation) Excision of squamous cell carcinoma (pro cedure) Documentation of past medical history (p rocedure) History of appendectomy (situation) History of cholecystectomy (situation) Excision of squamous cell carcinoma (pro cedure) History of appendectomy (situation) History of cholecystectomy (situation) Documentation of past medical history (p rocedure) Excision of squamous cell carcinoma (pro cedure) History of appendectomy (situation) Documentation of past medical history (p rocedure) History of cholecystectomy (situation) Documentation of past medical history (p rocedure) Excision of squamous cell carcinoma (pro cedure) History of appendectomy (situation) History of cholecystectomy (situation) History of cholecystectomy (situation) Documentation of past medical history (p rocedure) History of appendectomy (situation) Excision of squamous cell carcinoma (pro cedure) Documentation of past medical history (p rocedure) Excision of squamous cell carcinoma (pro cedure) Lithotripsy system probe (physical objec t) History of appendectomy (situation) History of cholecystectomy (situation) Excision of squamous cell carcinoma (pro cedure) History of appendectomy (situation) History of cholecystectomy (situation) Lithotripsy system probe (physical objec t) Documentation of past medical history (p rocedure) Excision of squamous cell carcinoma (pro cedure) History of appendectomy (situation) History of cholecystectomy (situation) Lithotripsy system probe (physical objec t) Documentation of past medical history (p rocedure) History of appendectomy (situation) Documentation of past medical history (p rocedure) History of cholecystectomy (situation) Lithotripsy system probe (physical objec t) Excision of squamous cell carcinoma (pro cedure) History of cholecystectomy (situation) Lithotripsy system probe (physical objec t) Documentation of past medical history (p rocedure) Excision of squamous cell carcinoma (pro cedure) History of appendectomy (situation) Documentation of past medical history (p rocedure) Excision of squamous cell carcinoma (pro cedure) History of appendectomy (situation) History of cholecystectomy (situation) Lithotripsy system probe (physical objec t) History of cholecystectomy (situation) Documentation of past medical history (p rocedure) History of appendectomy (situation) Excision of squamous cell carcinoma (pro cedure) Lithotripsy system probe (physical objec t) Excision of squamous cell carcinoma (pro cedure) Documentation of past medical history (p rocedure) History of appendectomy (situation) History of cholecystectomy (situation) Lithotripsy system probe (physical objec t) History of cholecystectomy (situation) Lithotripsy system probe (physical objec t) Excision of squamous cell carcinoma (pro cedure) History of appendectomy (situation) Documentation of past medical history (p rocedure) Documentation of past medical history (p rocedure) Lithotripsy system probe (physical objec t) History of cholecystectomy (situation) Excision of squamous cell carcinoma (pro cedure) History of appendectomy (situation) History of appendectomy (situation) History of cholecystectomy (situation) Lithotripsy system probe (physical objec t) Excision of squamous cell carcinoma (pro cedure) Documentation of past medical history (p rocedure) History of appendectomy (situation) History of cholecystectomy (situation) Excision of squamous cell carcinoma (pro cedure) Lithotripsy system probe (physical objec t) Documentation of past medical history (p rocedure) Excision of squamous cell carcinoma (pro cedure) Documentation of past medical history (p rocedure) History of appendectomy (situation) Lithotripsy system probe (physical objec t) History of cholecystectomy (situation) History of appendectomy (situation) History of cholecystectomy (situation) Documentation of past medica l history (procedure) D N C 03/2022 Excision of squamous cell carcinoma (pro cedure) Lithotripsy system probe (physical objec t) 03/2022 Lumpectomy of left breast (procedure) Review Of Systems Provider reviewed on Feb 15, 2025.A focused review of systems was performed including Integumentary.No Problems With Healing And No Problems With Scarring (hypertrophic Or Keloid). Assessment 1.Actinic KeratosisCounselingLiquid Nitrogen: neck.2.Irritated Seborrheic KeratosisCounselingLiquidNitrogen: left clavicular neck; Medical Necessity Justification (varies by insurance carrier and byregion) - irritated and itchy.3.Actinic DamageCounselingPhotodynamic Therapy CounselingAdditional No tes4.Dermatitis UnspecifiedPrescription: betamethasone dipropionate 0.05 % topical cream TP Frequency: AM and PM Indication: Rash; fluocinonide 0.05 % topical solution TPTreatment Regimen: Continue Regimen - Betamethasone dipropionate 0.05 % topical cream: Apply AM and PM back of neck chest and arms rash for up to 2 weeksFluocinonide 0.05 % topical solution: Apply 5-10 drops to scalp QD-BID PRN itch and massage in;.CounselingMedication Counseling5.History of Basal Cell CarcinomaCounseling6.AcneCounselingTreatment Regimen: face; Continue Regimen - Clindamycin 1.2 % (1 % base)-Benzoyl Peroxide 5 % topical gel: Apply PM acne face.Prescription: clindamycin 1.2 % (1 % base)-benzoyl peroxide 5 % topical gel TP Frequency: Qd7.Bryant AngiomasCounseling8.PurpuraCounselingReassurance9.Seborrheic Ker jqwannXodntwwnlz15.HutozjcyqhIpzcbbrpaq17.Benign CdfxIrzrapnzut99.Skin EducationSunscreen Recommendations Plan of Care Future visit for 02/15/2026 - Follow up in 1 year for: Skin Check - 15 minutes. Other Instructions:CSE in CSE slot. Other Instructions: CSE in CSE slot. Future visit for 06/07/2025 - Follow up in 4 months for: Focused Visit - 15 minutes. Other Instructions: Recheck cryo sites and actinic damage. Other Instructions: Recheck cryo sites and actinic damage. Code Detail Instructions [id number] fluocinonide 0.05 % topical solu tion Apply 5-10 drops to scalp QD-BID PRN itch and massage in 1380097 clindamycin 1.2 % (1 % base)-benzoyl peroxide 5 % topical gel Apply PM acne face 869268 betamethasone diprop ionate 0.05 % topical cream Apply AM and PM back of neck chest and arms rash for up to 2 weeks 489788 betamethasone diprop ionate 0.05 % topical cream Apply AM and PM to scaly patches on arms, chest and back for 2 weeks 284462 econazole 1 % topical cream Appl y AM and PM tops sides bottoms of feet and between toes for 4 weeks 3672334 clindamycin 1.2 % (1 % base)-benzoyl peroxide 5 % topical gel Apply PM outbreaks chin 7339052 clindamycin 1.2 % (1 % base)-benzoyl peroxide 5 % topical gel Apply PM outbreaks chin 931269 fluocinonide 0.05 % topical solu tion Apply 5-10 drops to scalp QD-BID PRN itch and massage in 295246 betamethasone diprop ionate 0.05 % topical cream Apply AM and PM back of neck chest and arms rash for up to 2 weeks 149836 fluocinonide 0.05 % topical solu tion Apply 5-10 drops to scalp qd-bid scalp prn itch and bumps when needed 117924 betamethasone diprop ionate 0.05 % topical cream Apply AM and PM back of neck chest and arms rash for up to 2 weeks 892648 fluocinonide 0.05 % topical solu tion Apply 5-10 drops to scalp qd-bid scalp prn itch and bumps when needed 144609 fluocinonide 0.05 % topical solu tion . Instructions * I counseled the patient regarding the following:Skin Care: Sun protective clothing and broad spectrum sunscreen can prevent the formation of Actinic Keratoses. AKs can resolve with cryotherapy, photodynamic therapy, imiquimod, topical 5-FU.Expectations: Actinic Keratoses are precancerous proliferations that occur within sun damaged skin. If untreated, a small subset of AKs can develop into Squamous Cell Carcinoma.I recommended the following: Broad Spectrum Sunscreen SPF 30+ * I counseled the patient regarding the following:Skin Care: Irritated Seborrheic Keratoses can be removed with cryotherapy.Expectations: Irritated Seborrheic Keratoses are benign growths that become inflamed, itchy, tender, traumatized, caught on clothing, or exhibit bleeding or crusting. Because the are symptomatic, they can be treated with cryotherapy. * I counseled the patient regarding the following:Skin Care: Actinic Damage can improve with broad spectrum sunscreen, sun avoidance, bleaching creams, retinoids, chemical peels and laser.Expectations:Actinic Damage is photo-aging from excessive sun exposure. It manifests as unwanted pigmentation, wrinkles and textural thinning of the skin. * I counseled the patient regarding the following:Expectations: The risks were reviewed with the patient including but not limited to: pigmentary changes, pain, blistering, scabbing, redness, and the remote possibility of scarring.I explained the expected post-care. Patient is to avoid sunlight for the next 2 days, and wear sun protection. Patients may expect sunburn like redness, discomfort and scabbing. * Continue the following treatment(s): Betamethasone dipropionate 0.05 % topical cream: Apply AM and PM back of neck chest and arms rash for up to 2 weeksFluocinonide 0.05 % topical solution: Apply 5-10 drops to scalp QD-BID PRN itch and massage in. * I counseled the patient regarding the following:Expectations: The patient understands that there isnot a definitive diagnosis at this time. Further testing or empiric therapy may be necessary to diagnose and improve the condition.Contact office if: The patient develops a fever, or rash dramatically worsens despite treatment. * Topical Steroids Counseling: I discussed with the patient that prolonged use of topical steroids can result in the increased appearance of superficial blood vessels (telangiectasias), lightening (hypopigmentation) and thinning of the skin (atrophy). Patient understands to avoid using high potency steroids in skin folds, the groin or the face. The patient verbalized understanding of the proper useand possible adverse effects of topical steroids. All of the patient's questions and concerns were addressed. * I counseled the patient regarding the following:Skin Care: Patients with a history of non-melanoma skin cancer should wear broad spectrum sunscreen and sun protective clothing.Expectations: Scars from excisional sites of non- melanoma skin cancers should be monitored for any recurrences. * I counseled the patient regarding the following:Skin care: I discussed with the patient the importance of using cleansers, moisturizers and cosmetics that are non-comedogenic.Contact office if: Acne worsens or fails to improve despite months of treatment; patient develops new scars, significantly more nodules or cysts. * Continue the following treatment(s): Clindamycin 1.2 % (1 % base)-Benzoyl Peroxide 5 % topical gel:Apply PM acne face. * I counseled the patient regarding the following:Expectations: Bryant Angiomas are benign vascular growths. No treatment is necessary. * I counseled the patient regarding the following:Expectations: Purpura are bruises that form within the skin. Patients may have skin fragility from sun damage, be on blood thinners or prednisone, or recently had surgery. * I counseled the patient regarding the following:Skin Care: Seborrheic Keratoses are benign. No treatment is necessary.Expectations: Seborrheic Keratoses are benign warty growths. Patients get more ofthem as they age. * I counseled the patient regarding the following:Expectations: Lentigines are benign pigmented lesions that occur on sun-exposed and sun-damaged skin. * I counseled the patient regarding the following:Instructions: Monthly self- skin checks to monitor for any changes in moles are recommended.No treatment is necessary.Contact Office if: Any moles change in size, shape or color; itch, burn or bleed. 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
[2025-02-20 10:09] LABS: Alanine Aminotransferase 18 U/L (0-31); Albumin Level 4.4 g/dL (3.5-5.0); Alkaline Phosphatase 84 U/L (39-117); Aspartate Amino Transferase 27 U/L (5-31); Total Protein 7.0 g/dL (6.5-8.0)
== END 2025-02-20 08:25 | disposition home or self-care (01) ==
LOC: HO.LAB 08:24
PROVIDERS: Internal Medicine; PCP Internal Medicine; Visit Provider Internal Medicine
DX: K50.80 Crohn's disease of both small and large intestine without complications (principal)
CPT/HCPCS: 36415; 80076; 85025; 96372; J3420

== ENCOUNTER 2025-02-20 08:24 | Outpatient (AMB) | payer MEDICARE, SELFPAY ==
--- NOTE | 2025-02-20 08:46 | AM.OFFVISNUR ---
Intake Visit Reasons: B-12 Shot Allergies Darvon Allergy (Intermediate, Verified 01/26/25 11:18) oral swelling Doxycycline Hyclate Allergy (Intermediate, Verified 01/26/25 11:18) diarrhea, severe diarrhea tetracycline (TETRACYCLINE) Allergy (Intermediate, Verified 01/26/25 11:18) Itching Office Meds cyanocobalamin (vitamin B-12) 1,000 mcg/mL injection solution Performing Provider: Tae Duarte MD [facility] Administered by: Elvi Almonte LPN on 02/20/25 08:46 Dose Route Admin Location Dispensed Lot Number Expiration Date [facility] Engine Dynamometer Tester 1,000 mcg IM left deltoid 1 mL [id number] 04/30/26 23467-627-64 [employer] Total Dispensed Waste 1 mL 0 % Assessment & Plan Assessment & Plan Orders: Orders AMB Vitamin B12 Injection Patient Supplied Today E53.8 - Deficiency of other specified B group vitamins Coding
== END 2025-02-20 08:47 | disposition home or self-care (01) ==
PROVIDERS: PCP Internal Medicine; Visit Provider Internal Medicine
DX: E53.8 Deficiency of other specified B group vitamins (principal)

== ENCOUNTER 2025-03-22 08:16 | Outpatient (AMB) | payer MEDICARE, SELFPAY ==
--- OUTSIDE RECORDS SUMMARY | 2023-10-28 06:40 | XMS_ITS ---
Author Organization [facility] Address [address] [place] [address] Care Team Providers Care Sleep Technician Name Role Phone Tae Duarte MD Primary Care Provider Neymar Sanders [phone] REASON FOR VISIT crohn's Problems Problem Type SNOMED Code ICD Code Onset Dates Problem Status W/U Status Risk Notes Problem History of gastrointestinal tract bypass (349461948) Intestinal bypass and anastomosis status (Z98.0) Active confirmed Problem Diverticular disease of colon (241631473) Diverticulosis of large intestine without perforation or abscess without bleeding (K57.30) Active confirmed Encounters Encounter Location Date Provider Diagnosis [facility] Outpatient [address] [place] [phone] 10/28/2023 Neymar Sauer Encounter for scre ening [...] Next Appt Details Provider Name:Neymar Sauer , 04/11/2025 09:10:00 AM, [address], [address], [place], [address], Progress Notes * EBEN BUNN ADOB:01/1955 (69 yo F)Acc No.[id number]:10/28/2023 EGD and COL/MAC Patient: Mel EBEN FENTON Provider: Alpesh Sauer MD :1955 A ge:68 Y S ex:Female Date:10/28/2023 Address:[address] [place] [phone] Pcp:Tae Duarte MD Subjective: * Chief Complaints: * 1 . Crohn's. * Medical History: Objective: * Vitals: Assessment: * Assessment: 1. E ncounter for [...] bdominal pain - R10.9 ? Plan: * Treatment: * Procedure Codes: 4 5380 COLONOSCOPY AND BIOPSY, Modifiers: PT , 0529F INTRVL 3+YRS PTS CLNSCP DOCD, Modifiers: 8P , 0528F RCMND FLW-UP 10 YRS DOCD, Modifiers: 1P , 94605 UPPR GI ENDOSCOPY, DIAGNOSIS * * The named appointment provid er may or may not be the originator of this progress note, and it is not deemed complete until electronically signed by the appointment provider. Sign off status: Pending * Provider: Alpesh Sauer MD Date: 0 10/28/[address] adame/Dexter/Efrenitting on: 1 08:23 AM EDT
--- OUTSIDE RECORDS SUMMARY | 2025-03-21 06:20 | XMS_ITS ---
Author Organization [facility] Address [address] [place] [address] Care Team Providers Care Cashier Parking Lot Name Role Phone Tae Duarte MD Primary Care Provider Neymar Sanders [phone] REASON FOR VISIT gerd Encounters Encounter Location Date Provider Diagnosis [facility] [address] [place] [phone] 03/21/2025 Neymar Sauer Plan Of Treatment Next Appt Details Provider Name:Neymar Sauer , 04/11/2025 09:10:00 AM, [address], [address], [place], [address], Progress Notes * EBEN BUNN ADOB:01/1955 (69 yo F)Acc No.[id number]:03/21/2025 Progress Notes Patient: Mel CHOWDHURYEBEN CASTRO Provider: Alpesh Sauer MD :1955 A ge:69 Y S ex:Female Date:03/21/2025 Address:[address] [id number] Pcp:Tae Duarte MD Subjective: * Chief Complaints: * 1 . Gerd. * Medical History: Objective: * Vitals: Assessment: Plan: * Treatment: * * The named appointment provid er may or may not be the originator of this progress note, and it is not deemed complete until electronically signed by the appointment provider. Sign off status: Pending * Provider: Alpesh Sauer MD Date: Generated for Ct adame/Dexter/Tereso on: 08:24 AM EDT
--- OUTSIDE RECORDS SUMMARY | 2025-03-22 08:24 | XMS_ITS | Patient Health Record ---
Author Organization [facility] Address [address] [place] [address] Care Team Providers Care Psychological Stress Evaluator Name Role Phone Po Tae FERRER Primary Care Provider Neymar Sanders [phone] Allergies Allergen (clinical drug ingredient) Drug/Non Drug Allergy documented on EMR Reaction Allergy Type Onset Date Status tetracycline Tetracycline HCl Unknown Drug Allergy Active Darvon Unknown Drug Allergy Active Results Component Value Reference Range Notes Complete Blood Count Auto Di ff Reviewed date:03/23/2024 06:59:11 PM Interpretation: Performing Lab:[facility], [address] [place] [phone] Notes/Report: White Blood Count 3.6 4.8-10.8 X10*3/uL [...] Panel Reviewed date:03/23/2024 06:59:35 PM Interpretation: Performing Lab:[facility], [address] [place] [phone] Notes/Report: Bilirubin Total 0.3 0.0-1.0 mg/dL Bilirubin Direct 0.1 0.0-0.5 mg/dL Aspartate Amino Transferase 27 5-31 U/L Alanine Aminotransferase 17 0-31 U/L Total Protein 6.6 6.5-8.0 g/dL Albumin Level 4.0 3.5-5.0 g/dL Alkaline Phosphatase 91 39-117 U/L MAMMOGRAM DIGITAL BILATERAL SCREEN Reviewed date:03/24/2024 08:32:51 AM Interpretation:Normal Performing Lab: Notes/Report: Normal Complete Blood Count Auto Di ff Reviewed date:04/23/2024 09:32:52 AM Interpretation: Performing Lab:[facility], [address] [place] [phone] Notes/Report: White Blood Count 5.5 4.8-10.8 X10*3/uL [...] Panel Reviewed date:04/23/2024 09:33:16 AM Interpretation: Performing Lab:[address] [phone] Notes/Report: Bilirubin Total 0.4 0.0-1.0 mg/dL Bilirubin Direct 0.1 0.0-0.5 mg/dL Aspartate Amino Transferase 23 5-31 U/L Alanine Aminotransferase 16 0-31 U/L Total Protein 7.1 6.5-8.0 g/dL Albumin Level 4.3 3.5-5.0 g/dL Alkaline Phosphatase 86 39-117 U/L Complete Blood Count Auto Di ff Reviewed date:05/20/2024 04:02:01 PM Interpretation: Performing Lab:[facility], [address] [place] [phone] Notes/Report: White Blood Count 4.9 4.8-10.8 X10*3/uL [...] Panel Reviewed date:05/20/2024 04:02:33 PM Interpretation: Performing Lab:[facility], [address] [place] [phone] Notes/Report: Bilirubin Total 0.4 0.0-1.0 mg/dL Bilirubin Direct 0.1 0.0-0.5 mg/dL Aspartate Amino Transferase 29 5-31 U/L Alanine Aminotransferase 19 0-31 U/L Total Protein 7.0 6.5-8.0 g/dL Albumin Level 4.1 3.5-5.0 g/dL Alkaline Phosphatase 82 39-117 U/L Complete Blood Count Auto Di ff Reviewed date:06/21/2024 10:33:11 AM Interpretation: Performing Lab:[facility], [address] [place] [phone] Notes/Report: White Blood Count 4.2 4.8-10.8 X10*3/uL [...] Panel Reviewed date:06/21/2024 10:33:28 AM Interpretation: Performing Lab:[facility], [address] [place] [phone] Notes/Report: Bilirubin Total 0.4 0.0-1.0 mg/dL Bilirubin Direct 0.1 0.0-0.5 mg/dL Aspartate Amino Transferase 24 5-31 U/L Alanine Aminotransferase 24 0-31 U/L Total Protein 7.3 6.5-8.0 g/dL Albumin Level 4.2 3.5-5.0 g/dL Alkaline Phosphatase 87 39-117 U/L Complete Blood Count Auto Di ff Reviewed date:07/22/2024 05:28:16 PM Interpretation: Performing Lab:[facility], [address] [place] [phone] Notes/Report: White Blood Count 5.1 4.8-10.8 X10*3/uL [...] Panel Reviewed date:07/26/2024 06:49:01 PM Interpretation: Performing Lab:[facility], [address] [place] [phone] Notes/Report: Sodium 139 135-145 mmol/L Potassium 3.9 [...] Panel Reviewed date:07/26/2024 06:49:13 PM Interpretation: Performing Lab:[facility], [address] [place] [phone] Notes/Report: Bilirubin Direct 0.2 0.0-0.5 mg/dL IRON PROFILE Reviewed date:07/26/2024 06:49:29 PM Interpretation: Performing Lab:[facility], [address] [place] [phone] Notes/Report: Iron 94 30-160 mcg/dL Total Iron Binding Capacity 257 228-428 mcg/d L Percent Iron Saturation 37 15-50 % Unsaturated Iron Binding 163 Lipid Panel Reviewed date:07/26/2024 06:49:37 PM Interpretation: Performing Lab:[address] [phone] Notes/Report: Triglycerides 72 <150 mg/dL Desirable Triglyceride: [...] Hormone Reviewed date:07/26/2024 06:49:57 PM Interpretation: Performing Lab:[facility], [address] [place] [phone] Notes/Report: Thyroid Stimulating Hormone 1.50 0.32-4.0 uIU/ mL TSH 3rd Generation ([employer]) Complete Blood Count Auto Di ff Reviewed date:09/19/2024 08:11:23 PM Interpretation: Performing Lab:[facility], [address] [place] [phone] Notes/Report: White Blood Count 4.4 4.8-10.8 X10*3/uL [...] Panel Reviewed date:09/19/2024 08:10:44 PM Interpretation: Performing Lab:[address] [phone] Notes/Report: Bilirubin Total 0.5 0.0-1.0 mg/dL Bilirubin Direct 0.2 0.0-0.5 mg/dL Aspartate Amino Transferase 30 5-31 U/L Alanine Aminotransferase 19 0-31 U/L Total Protein 6.9 6.5-8.0 g/dL Albumin Level 4.3 3.5-5.0 g/dL Alkaline Phosphatase 82 39-117 U/L Complete Blood Count Auto Di ff Reviewed date:10/20/2024 09:57:22 PM Interpretation: Performing Lab:[facility], [address] [place] [phone] Notes/Report: White Blood Count 5.2 4.8-10.8 X10*3/uL [...] Panel Reviewed date:10/20/2024 09:09:23 AM Interpretation: Performing Lab:[facility], [address] [place] [phone] Notes/Report: Bilirubin Total 0.4 0.0-1.0 mg/dL Bilirubin Direct 0.2 0.0-0.5 mg/dL Aspartate Amino Transferase 24 5-31 U/L Alanine Aminotransferase 21 0-31 U/L Total Protein 7.0 6.5-8.0 g/dL Albumin Level 4.2 3.5-5.0 g/dL Alkaline Phosphatase 78 39-117 U/L Complete Blood Count Auto Di ff Reviewed date:11/21/2024 11:37:43 PM Interpretation: Performing Lab:[address] [phone] Notes/Report: White Blood Count 8.7 4.8-10.8 X10*3/uL [...] Panel Reviewed date:11/21/2024 11:37:10 PM Interpretation: Performing Lab:[address] [phone] Notes/Report: Bilirubin Total 0.3 0.0-1.0 mg/dL Bilirubin Direct 0.1 0.0-0.5 mg/dL Aspartate Amino Transferase 18 5-31 U/L Alanine Aminotransferase 8 0-31 U/L Total Protein 7.1 6.5-8.0 g/dL Albumin Level 3.6 3.5-5.0 g/dL Alkaline Phosphatase 108 39-117 U/L Complete Blood Count Auto Di ff Reviewed date:12/25/2024 07:52:26 PM Interpretation: Performing Lab:[address] [phone] Notes/Report: White Blood Count 5.3 4.8-10.8 X10*3/uL [...] Panel Reviewed date:12/25/2024 07:51:21 PM Interpretation: Performing Lab:[facility], [address] [place] [phone] Notes/Report: Bilirubin Total 0.5 0.0-1.0 mg/dL Bilirubin Direct 0.2 0.0-0.5 mg/dL Aspartate Amino Transferase 22 5-31 U/L Alanine Aminotransferase 13 0-31 U/L Total Protein 6.8 6.5-8.0 g/dL Albumin Level 4.0 3.5-5.0 g/dL Alkaline Phosphatase 87 39-117 U/L Complete Blood Count Auto Di ff Reviewed date:01/23/2025 11:02:15 PM Interpretation: Performing Lab:[facility], [address] [place] [phone] Notes/Report: White Blood Count 4.5 4.8-10.8 X10*3/uL [...] Panel Reviewed date:01/23/2025 11:00:07 PM Interpretation: Performing Lab:[facility], [address] [place] [phone] Notes/Report: Bilirubin Total 0.4 0.0-1.0 mg/dL Bilirubin Direct 0.2 0.0-0.5 mg/dL Aspartate Amino Transferase 25 5-31 U/L Alanine Aminotransferase 15 0-31 U/L Total Protein 6.7 6.5-8.0 g/dL Albumin Level 4.0 3.5-5.0 g/dL Alkaline Phosphatase 94 39-117 U/L Complete Blood Count Auto Di ff (Not yet reviewed by provider) Interpretation: Performing Lab:[address] [phone] Notes/Report: White Blood Count 4.8 4.8-10.8 X10*3/uL Red Blood Count 3.36 4.20-5.50 X10*6/uL Hemoglobin 12.2 12.0-16.0 g/dl Hematocrit 36.8 37.0-47.0 % Mean Corpuscular Volume 109.5 80.0-98.0 fL Mean Corpuscular Hemoglobin 36.3 27.0-33.0 pg Mean Corpuscular HGB Conc 33.2 31.0-35.0 g/dl Red Cell Distribution Width 14.6 11.0-16.0 % Platelet Count 288 160-400 X10*3/uL Mean Platelet Volume 9.9 9.4-12.3 fL Neutrophils Percent Auto 56.2 45-73 % Imm Gran Pct Auto 0.2 0.0-0.4 % Lymphocytes Percent Auto 26.4 20-40 % Monocytes Percent Auto 8.9 2-11 % Eosinophils Percent Auto 6.6 0-4 % Basophils Percent Auto 1.7 0-2 % NRBC Pct Auto 0.0 0.0-0.2 /100WBC Neutrophils Absolute Auto 2.7 2.0-8.3 x10*3/u L Imm Gran Abs Auto 0.01 0.00-0.03 X10*3/uL Lymphocytes Absolute Auto 1.3 1.2-4.9 X10*3/u L Monocytes Absolute Auto 0.4 0.1-1.2 X10*3/uL Eosinophils Absolute Auto 0.3 0.0-0.4 X10*3/u L Basophils Absolute Auto 0.1 0.0-0.2 X10*3/uL NRBC Abs Auto 0.000 0.0-0.012 X10*3/uL Liver Panel (Not yet review ed by provider) Interpretation: Performing Lab:[facility], [address] [place] [phone] Notes/Report: Bilirubin Total 0.5 0.0-1.0 mg/dL Bilirubin Direct 0.2 0.0-0.5 mg/dL Aspartate Amino Transferase 27 5-31 U/L Alanine Aminotransferase 18 0-31 U/L Total Protein 7.0 6.5-8.0 g/dL Albumin Level 4.4 3.5-5.0 g/dL Alkaline Phosphatase 84 39-117 U/L Reason For Referral No Information Medications Medication SIG (Take, Route, Frequency, Duration) Notes Start Date End Date Status traMADol HCl 50mg 1 tablet as needed Orally every 8 hours prn Active azaTHIOprine 50 MG TAKE 2 TABLETS BY MOUTH EVERY DAY; Duration: 90 Active Omeprazole 20 MG TAKE 1 CAPSULE BY MOUTH EVERY DAY; Duration: 90 Active Cyanocobalamin 1000 MCG/ML INJECT 1ML EVERY 4 WEEKS Injection; Duration: 84 Active busPIRone HCl 10 MG 1 tablet Orally once a day Active Raloxifene HCl Unkno wn Dicyclomine HCl 10 MG 1 or 2 capsules every 6 hours if needed for abdominal cramps/discomfort Orally Every 6 hours if needed; Duration: 90 days Active Omeprazole 20 MG take 1 capsule by mouth once daily Orally Once a day Active Pentasa 500 MG TAKE 2 CAPSULES BY MOUTH 4 TIMES A DAY 90 DAYS; Duration: 90 Brand Name Only , Active Vitamin B-6 100 MG 1 tablet Orally twice a day; Duration: 30 days Active Cholestyramine 4 GM/DOSE use anywhere fr om 1/4 to 1 scoop Orally Once or twice a day a needed for diarrhea; Duration: 30 days Active Immunizations Vaccine Route Administration Date Status [...] Problem Status W/U Status Risk Notes Problem Gastro-esophageal reflux disease without esophagitis (657455964) Gastro-esophageal reflux disease without esophagitis (K21.9) Active confirmed Problem Screening for malignant neoplasm of colon (731755252) Encounter for screening for malignant neoplasm of colon (Z12.11) Active confirmed Problem History of adenomatous polyp of colon (945232135) History of adenomatous polyp of colon (Z86.010) Active confirmed Problem Weight loss (750711339) Weight loss (R63.4) Active confirmed Problem Crohn's disease of small AND large intestines (38712862) Crohn's disease of both small and large intestine without complication (K50.80) Active confirmed Problem Crohn's disease of small AND large intestines (62624010) Crohn's disease of both small and large intestine without complications (K50.80) Active confirmed Problem Diverticular disease of colon (800948966) Diverticulosis of large intestine without perforation or abscess without bleeding (K57.30) Active confirmed Problem Irritable bowel syndrome with diarrhea (546156813) Irritable bowel syndrome with diarrhea (K58.0) Active confirmed Problem Melena (0664520) Melena (K92.1) Active confirme d Problem Therapeutic drug monitoring, quantitative (regime/therapy) (07821581) Encounter for therapeutic drug level monitoring (Z51.81) Active confirmed Problem History of gastrointestinal tract bypass (698707384) Intestinal bypass and anastomosis status (Z98.0) Active confirmed Problem Crohn's disease of small AND large intestines (01363200) Crohns disease of both small and large intestine without complication (K50.80) Active confirmed Problem History of polyp of colon (situation) (020816510) History of colon polyps (Z86.010) Active confirmed Problem Gallstones (099357036) Gallstones (K80.20) Active confirmed Problem Gastroesophageal reflux disease (617002345) GERD (gastroesophageal reflux disease) (K21.9) Active confirmed Problem Generalized abdominal pain (467206588) Abdominal pain, generalized (R10.84) Active confirmed Problem Diarrhea (59415419) Diarrhea, unspecified type (R19.7) Active confirmed Problem Drug monitoring done (921782534) Therapeutic drug monitoring (Z51.81) Active confirmed Problem Crohn's disease of small AND large intestines (20302360) Crohn''s disease of both small and large intestine without complication (K50.80) Active confirmed Problem 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 Vital Signs Blood pressure diastolic 77 mm Hg 09/27/2024 Height 65 in 09/27/2024 Blood pressure systolic 111 mm Hg 09/27/2024 Weight 130 lbs 09/27/2024 BMI 21.63 kg/m2 09/27/2024 Encounters Encounter Location Date Provider Diagnosis [facility] [address] [place] [phone] 03/22/2024 Neymar Sauer GERD (gastroesophage al reflux disease) K21.9 ; Crohn's disease of both small and large intestine without complications K50.80 and Bile salt-induced diarrhea K90.89 [facility] [address] [place] [phone] 09/27/2024 Neymar Sauer Crohns disease of elkin th small and large intestine without complication K50.80 ; Gastro-esophageal reflux disease without esophagitis K21.9 ; History of adenomatous polyp of colon Z86.010 ; Diarrhea, unspecified type R19.7 and Bile salt-induced diarrhea K90.89 [facility] [address] [place] [phone] 10/28/2024 Neymar Sauer [facility] [address] [place] [phone] 01/09/2025 Neymar Sauer [facility] [address] [place] [phone] 01/11/2025 Neymar Sauer [facility] [address] [place] [address] 03/10/2025 Neymar Sauer Assessments Encounter Date Diagnosis (ICD [...] PCR 02/28/2021 C DIFFICILE RFLX PCR 03/04/2022 Complete Blood Count Auto Diff Liver Panel 02/20/2025 Calprotectin, Fecal 09/17/2023 GI PANEL 09/17/2023 Future Test Test Name Order Date COLONOSCOPY 02/02/2013 COLONOSCOPY 06/02/2018 UPPER GI ENDOSCOPY 02/21/2020 UPPER GI ENDOSCOPY 09/17/2023 COLONOSCOPY 09/17/2023 Next Appt Details Provider Name:Neymar Sauer , 04/11/2025 09:10:00 AM, [address], [address], [place], [address], Insurance Providers Payer Name Payer Address Payer Phone Subscriber Number Group Number Insured Name Patient Relationship to Insured Coverage Start Date Coverage End Date MEDICARE OF [place] [address] [place] [address] [id number] SOFIYACHERRY VidalIE Self - patient is the insured [employer] CLAIMS [address] [place] [address] [id number] SEPIDEH VIVIAN Self - patient is the insured Medical [...] the area of the femoral neck Denies MS,DM,CVA,Lung disease,renal dise ase Anxiety GERD--EGD in 04/2007 [...] Leahy 04/17/2015 Removed basal call carcinoma from anabaptism Dec 2012 Cyst behind right ear removed November 2012 BTL Benign breast biopsy Crohn's disease in 1989 with right ileoc olectomy with Dr. Lima
--- NOTE | 2025-03-22 08:28 | AM.OFFVISNUR ---
Intake Visit Reasons: B12 shot Allergies Darvon Allergy (Intermediate, Verified 01/26/25 11:18) oral swelling Doxycycline Hyclate Allergy (Intermediate, Verified 01/26/25 11:18) diarrhea, severe diarrhea tetracycline (TETRACYCLINE) Allergy (Intermediate, Verified 01/26/25 11:18) Itching Office Meds cyanocobalamin (vitamin B-12) 1,000 mcg/mL injection solution Performing Provider: Tea Duarte MD [facility] Administered by: Remedios Baez RN on 03/22/25 08:28 Dose Route Admin Location Dispensed Lot Number Expiration Date [facility] [employer] 1,000 mcg IM 1 mL [id number] 04/30/26 [address]989-03 [employer] Total Dispensed Waste 1 mL 0 % Assessment & Plan Assessment & Plan Orders: Orders AMB Vitamin B12 Injection Patient Supplied Today E53.8 - Deficiency of other specified B group vitamins Coding
== END 2025-03-22 08:37 | disposition home or self-care (01) ==
LOC: HO.HMCH 08:16
PROVIDERS: PCP Internal Medicine; Visit Provider Internal Medicine
DX: E53.8 Deficiency of other specified B group vitamins (principal)

== ENCOUNTER → 2025-03-22 08:16 | Outpatient (BNVA) | payer MEDICARE, SELFPAY | PROVIDERS: PCP Internal Medicine; Visit Provider Internal Medicine | DX: E53.8 Deficiency of other specified B group vitamins (principal) | CPT/HCPCS: 96372; J3420 ==

== ENCOUNTER 2025-04-07 15:01 | Outpatient (AMB) | payer MEDICARE, SELFPAY ==
[2025-04-07 15:10] VITALS: BP 142/74; PULSE 89; TEMP 36.3; O2SAT 99; BMI 20.3
--- NOTE | 2025-04-07 15:10 | A.OFFPC_ITS ---
Vital Signs 04/07/25 15:10 Height 5 ft 5 in Weight 122 lb BMI 20.3 BP 142/74 H Blood Pressure Location Lt brachial Position Sitting Pulse 89 Pulse Source Pulse Oximeter Temp 97.3 F Temp Source Temporal Artery Scan Pulse Oximetry (%) 99 Oxygen Delivery Method Room Air Intake Visit Reasons: 3M Follow Up Allergies Darvon Allergy (Intermediate, Verified 04/07/25 15:21) oral swelling Doxycycline Hyclate Allergy (Intermediate, Verified 04/07/25 15:21) diarrhea, severe diarrhea tetracycline (TETRACYCLINE) Allergy (Intermediate, Verified 04/07/25 15:21) Itching Medication List - Last Reconciled 04/07/25 by Tae Duarte MD albuterol sulfate 90 mcg/actuation 1 inh inhalation QID PRN apixaban (Eliquis) 5 mg PO BID ascorbic acid (vitamin C) 1,000 mg PO DAILY 90 days azathioprine 100 mg PO DAILY buspirone 10 mg PO DAILY cholecalciferol (vitamin D3) 50 mcg PO DAILY 90 days cyanocobalamin (vitamin B-12) 1,000 mcg IM Q4W 90 days dicyclomine 20 mg PO QID PRN dronedarone (Multaq) 400 mg PO BID mesalamine ER (Pentasa) 1,000 mg PO QID methenamine hippurate 1 g PO DAILY 90 days metoprolol tartrate 12.5 mg (1/2 x 25 mg) PO BID omeprazole 20 mg PO DAILY@0630 pyridoxine (vitamin B6) 100 mg PO DAILY raloxifene 60 mg PO DAILY tramadol 50 mg PO DAILY 90 days Tobacco use date assessed: 04/07/25 Fall risk assessment: No Falls in past year Last assessed Fall Risk: 04/07/25 Dental Screening Dental Screen Date: 04/07/25 Did you have a dental visit in the last 12 months?: Yes Did you have a dental problem in the last 6 months where you did not have access to dental care?: No Was dental information given to patient?: Patient has [facility] Medical History Afib Cellulitis and abscess of other specified site Osteoporosis Nicotine dependence, cigarettes, uncomplicated Breast cancer screening by mammogram Lip abscess Palpitations Flank pain Basal cell carcinoma Peptic ulcer disease Renal calculi Vitamin D deficiency Impaired glucose tolerance Anxiety and depression Anemia Asthma GERD (gastroesophageal reflux disease) Crohn's disease Surgical History History of tooth extraction History of surgical removal of ganglion cyst Hx of lithotripsy Hx of dilation and curettage Hx of cystoscopy History of hysteroscopy History of colonoscopy History of cholecystectomy Hx of appendectomy H/O tubal ligation History of lumpectomy of left breast S/P small bowel resection Social History Household Members: Significant Other Housing: House Alcohol intake: current Alcohol intake frequency: holidays/special occasions only Patient Tobacco Use Status: Current everyday Tobacco user Tobacco use type: Cigarette Cigarette Packs Per Day: 1 Cigarettes Per Day: 5 Years Smoked: 50 e-Cigarette/Vaping Use: Never Used Second Hand Smoke Exposure: Yes Advance Directives Date on File: 10/25/24 service: No Current occupational status: 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 1. Little interest or pleasure in doing things: not at all 2. Feeling down, depressed, or hopeless: not at all 3. Trouble falling or staying asleep, or sleeping too much: not at all 4. Feeling tired or having little energy: not at all 5. Poor appetite or overeating: not at all 6. Feeling bad about yourself - or that you are a failure or have let yourself or your family down: not at all 7. Trouble concentrating on things, such as reading the newspaper or watching television: not at all 8. Moving or speaking so slowly that other people could have noticed. Or the opposite - being so fidgety or restless that you have been moving around a lot more than usual: not at all 9. Thoughts that you would be better off or of hurting yourself in some way: not at all Total score: 0 Depression Screening Interpretation: Negative Depression Screening Done: Yes Source: Developed by Drs. Neymar Florez, Elsy Patel, Tan Alejandra and colleagues, with an educational colleen from [employer]. Thrive Questionnaire Date Thrive assessed: 01/06/25 I am a: Patient What is your living situation today?: I have a steady place to live Within the past 12 months, did the food you bought not last and you didn't have the money to get more?: Never true Within the past 12 months, did you worry whether your food would run out before you got money to buy more?: Never true Do you have trouble paying for medicines?: No Do you have trouble getting transportation to medical appointments?: No Do you have trouble paying your heating and electricity bill?: No Do you have trouble taking care of your child, family member or friend?: No Do you have trouble with day-to-day activities such as bathing, preparing meals, shopping, managing finances, etc.?: No Are you currently unemployed and looking for a job?: No Are you interested in more education?: No Please select the resources that you would like help with: None Currently or been in a relationship where the following occur: No concerns reported THRIVE Score: 0 AUDIT C Alcohol Use Questionnaire (AUDIT-C) 1. How often do you have a drink containing alcohol?: Monthly or less 2. How many drinks containing alcohol do you have on a typical day when you are drinking?: 1 or 2 3. How often do you have six or more drinks on one occasion?: Never Total Score: 1 MARLI-7 AMB Questionnaire MARLI-7 Date MARLI - 7 assessed: 01/06/25 Feeling nervous, anxious, or on edge: 0 = Not at all Not being able to stop or control worryin = Not at all Worrying too much about different things: 0 = Not at all Trouble relaxin = Not at all Being so restless that it is hard to sit still: 0 = Not at all Becoming easily annoyed or irritable: 0 = Not at all Feeling afraid as if something awful might happen: 0 = Not at all Total MARLI-7 score (0-4 normal; 5-9 mild; 10-14 moderate; 15-21 severe): 0 Source: Developed by Drs. Neymar Florez, Elsy Patel, Tan Alejandra and colleagues, with an educational colleen from [employer]. Physical exam (Primary Care) Vital Signs: Last Vital Signs Temp 97.3 F 04/07/25 15:10 Pulse 89 04/07/25 15:10 BP 142/74 H 04/07/25 15:10 Pulse Ox 99 04/07/25 15:10 Oxygen Delivery Method Room Air 04/07/25 15:10 BMI result Body Mass Index 20.3 Tobacco/Smoking Status: Tobacco use Status Tobacco use date assessed 04/07/25 04/07/25 15:24 Patient Tobacco Use Status Current everyday Tobacco 04/07/25 15:11 Tobacco use type Cigarette 04/07/25 15:11 e-Cigarette/Vaping Use Never Used 04/07/25 15:11 PHQ-9: PHQ-9 Score PHQ-9: Total score 0 04/07/25 15:24 Depression Screening Interpretation: Negative Thrive Assessment: Date of Thrive Assessment Date Thrive assessed 01/06/25 04/07/25 15:11 Currently or been in a relationship where the following occur: No concerns reported Const General: alert; No acute distress Eyes Conjunctivae: conjunctivae normal Resp Auscultation: clear to auscultation bilaterally Cardio Rate: regular rate Rhythm: regular rhythm GI Inspection: Yes normal to inspection Extrem General: Yes normal to inspection and No edema Office Procedures Flu Questionnaire Does the patient have a severe egg allergy?: No Does the patient have severe life threatening allergies?: No Does the patient have a fever or illness today?: No Has the patient ever had Guillain-Ruby Syndrome?: No Has the patient ever had any past reaction to a flu shot?: No Immunizations Fluarix [id number] (PF) 45 mcg (15 mcg x 3)/0.5 mL IM syringe Performing Provider: Tae Duarte MD [facility] Administered by: Anna Osuna CMA on 04/07/25 15:29 Dose Route Admin Location Dispensed Lot Number Expiration Date [facility] Administrative Director 0.5 mL IM Left Deltoid 0.5 mL [id number] 11/28/25 [id number] [facility] VIS Given Date VIS Provided VIS Publication Date 04/07/25 Single Vaccine 24 Eligibility Eligibility Date Funding Source Not [facility] Eligible 04/07/25 Private Coding Level of Care Code Est Pt Level 4 (77953) Complex EM visit Add On G2211 Diagnoses SVT (supraventricular tachycardia) I47.10 Generalized anxiety disorder F41.1 Gastroesophageal reflux disease without esophagitis K21.9 Esophagitis presence: without esophagitis History of renal calculi Z87.442 Mild intermittent asthma without complication J45.20 Asthma severity: mild Asthma persistence: intermittent Asthma complication type: uncomplicated Nicotine dependence, cigarettes, uncomplicated F17.210 Assessment & Plan Assessment & Plan (1) SVT (supraventricular tachycardia): Code(s): I47.10 - Supraventricular tachycardia, unspecified Category: Medical Plan: Patient has been seen by Cardiology and gathering information for a possible ablation versus medication. Atrial fibrillation patient on Eliquis Multaq metoprolol (2) Generalized anxiety disorder: Code(s): F41.1 - Generalized anxiety disorder Category: Medical Plan: Patient on buspirone. (3) GERD (gastroesophageal reflux disease): Code(s): K21.9 - Gastro-esophageal reflux disease without esophagitis Category: Medical Qualifiers: Esophagitis presence: without esophagitis Qualified Code(s): K21.9 - Gastro-esophageal reflux disease without esophagitis Plan: Avoid the foods that causes that usually spicy foods, tomato products, juices, coffee, soda and foods that your sensitive to. After eating do not lie down, allow 3-4 hours before in lie down. And keep the head of bed above 30 degrees to avoid the acid from going up. (4) History of renal calculi: Comment: April 2022 left ESWL November 2024 Code(s): Z87.442 - Personal history of urinary calculi Category: Medical Plan: Patient follows up with urology has had an ESWL (5) Asthma: Code(s): J45.909 - Unspecified asthma, uncomplicated Category: Medical Qualifiers: Asthma severity: mild Asthma persistence: intermittent Asthma complication type: uncomplicated Qualified Code(s): J45.20 - Mild intermittent asthma, uncomplicated Plan: Continue with albuterol. Patient is advised to stop smoking (6) Nicotine dependence, cigarettes, uncomplicated: Comment: (30+PYH) CT scan July 2024 Code(s): F17.210 - Nicotine dependence, cigarettes, uncomplicated Category: Medical Plan: Strongly advised to stop summation point Plan History of Present Illness The patient is a 69-year-old female presenting for a follow-up visit for management of multiple chronic conditions. Her medical history is significant for GERD, asthma, generalized anxiety disorder, impaired glucose tolerance, and overactive bladder. The patient has a history of supraventricular tachycardia and atrial fibrillation, for which she follows with cardiology as of January 2025. A prior Holter monitor did not demonstrate any arrhythmias. 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 Her history includes renal calculi, and she was seen by urology in December, having undergone an ESWL procedure in November 2024. She is currently under surveillance, and a renal ultrasound in December showed bilateral non-obstructive nephrolithiasis. This followed a prior hospitalization for an infected and obstructed stone. The patient also has a history of osteoporosis, with her last bone density scan in June 2023. She follows up with dermatology for actinic keratosis. She has a history of smoking, and her last chest CAT scan was in July 2024. Her last colonoscopy was in September 2023 and her last mammogram was in June 2024. The patient reports recent hair loss over the last 4-5 months and questions if it may be related to her blood thinner medication. Health Maintenance The patient received an influenza vaccination during the visit. She was advised to get the updated COVID-19 vaccine. A fasting blood work order was placed for her appointment on the . The patient was reminded that her next bone density scan is due in 2025, and her annual CAT scan of the chest and mammogram are due in June. Social History - Tobacco Use: Patient has a history of smoking and was advised to stop. - Sun Exposure: Patient reports significant sun exposure in the past, including having a boat and experiencing several sunburns. Review of Systems - Cardiovascular: Reports palpitations and a sensation of a fast, vibrating hear t, often triggered by anxiety. - HEENT: Reports eye discomfort and needs new glasses. - Dermatologic: Reports hair is falling out. - Constitutional: Denies sweating. - Head: Reports pain from a recent tooth extraction. Physical Exam - Vitals: Blood pressure is elevated. - Cardiovascular: Regular rate and rhythm noted on auscultation. - Constitutional: No sweating observed. Results - Labs: Blood count from February 20 was normal. - Imaging: - CAT scan of the chest (Jul 2024): No results mentioned. - Bone density scan (Jun 2023): No results mentioned. - Colonoscopy (September 2023): No results mentioned. - Mammogram (Jun 2024): No results mentioned. - Renal Ultrasound (Dec 2024): Showed bilateral non-obstructive nephrolithiasis. - Cardiac Diagnostics: - Holter monitor: Did not show arrhythmias. Plan Patient was informed and verbally consented to the use of an ambient scribe for clinic note documentation during this visit. 1. Atrial Fibrillation The patient will continue management under cardiology for atrial fibrillation and history of SVT, with her furniture sales consultant considering either catheter ablation or adjustments to her oral antiarrhythmic medication. She will continue her current regimen of Multaq, metoprolol, and Eliquis. Blood work will be ordered to monitor kidney function, which is required at least twice a year while on Eliquis. 2. Nephrolithiasis The patient is on surveillance for bilateral non-obstructive renal calculi following an ESWL procedure in November 2024. She will follow up with urology in July for a repeat ultrasound to assess the status of the stones. 3. Generalized Anxiety Disorder The patient will continue on buspirone for anxiety. A discussion regarding lorazepam for anxiety-triggered palpitations was held, but it was decided against due to potential interaction with tramadol and risk of dependence. 4. Asthma Continue with albuterol as needed. 5. Tobacco Use The patient was advised to stop smoking. Discussion Notes I reviewed the patient's recent consultations and ongoing care with her specialists. We discussed her atrial fibrillation, noting that her furniture sales consultant is deciding between catheter ablation and medication management. I informed her that her blood pressure was elevated today, possibly related to pain from a recent tooth extraction, and that we need to monitor it. We reviewed her health screening schedule, confirming she is up to date with her colonoscopy, and her next bone density scan is due in 2025, while her mammogram and chest CT are due in June. I placed an order for fasting blood work to be done during her next visit for her B12 injection, which is necessary for monitoring her kidney function while on Eliquis. We discussed her complaint of hair loss, and I acknowledged that it could be a side effect of her blood thinner. We also reviewed her vaccinations; she received her flu shot today, and I recommended she get the updated COVID-19 vaccine. We discussed using lorazepam for anxiety-triggered palpitations but decided against it due to the potential for interaction with tramadol and its addictive nature. Patient Instructions - Please go for fasting blood work on the , when you are scheduled for your B12 injection. - It is recommended that you get the updated COVID-19 vaccine, which is available at the pharmacy. - Continue to take your current medications as prescribed, including Multaq, metoprolol, and Eliquis. - You were strongly advised to stop smoking. - Continue to follow up with your specialists, including cardiology, urology for your kidney stones, and dermatology for your skin. - Your next yearly chest CT scan and mammogram are due in June. - Your next bone density scan will be due in 2025. Please let our office know if you need help scheduling this. - You received your flu shot today. Orders: Orders Influenza [id number] Immunization Today Z23 - Encounter for immunization Comprehensive Met. Panel Today I48.91 - Unspecified atrial fibrillation Free T4 (Free Thyroxine) Today I48.91 - Unspecified atrial fibrillation Lipid Panel Today E78.00 - Pure hypercholesterolemia, unspecified, I48.91 - Unspecified atrial fibrillation Ferritin Today I48.91 - Unspecified atrial fibrillation Reticulocyte Count Today I48.91 - Unspecified atrial fibrillation Vitamin D 25-OH Total Today I48.91 - Unspecified atrial fibrillation UA CC w/rflx Micro + Cult Today I48.91 - Unspecified atrial fibrillation, R30.0 - Dysuria Complete Blood Count Auto Diff Today I48.91 - Unspecified atrial fibrillation Thyroid Stimulating Hormone Today I48.91 - Unspecified atrial fibrillation Vitamin B12 and Folate Today I48.91 - Unspecified atrial fibrillation IRON PROFILE Today I48.91 - Unspecified atrial fibrillation
== END 2025-04-07 16:08 | disposition home or self-care (01) ==
LOC: HO.HMCH 15:01
PROVIDERS: PCP Internal Medicine; Visit Provider Internal Medicine
DX: I47.10 Supraventricular tachycardia, unspecified (principal); F41.1 Generalized anxiety disorder; K21.9 Gastro-esophageal reflux disease without esophagitis; Z87.442 Personal history of urinary calculi; J45.20 Mild intermittent asthma, uncomplicated; F17.210 Nicotine dependence, cigarettes, uncomplicated; Z23 Encounter for immunization

== ENCOUNTER → 2025-04-07 15:01 | Outpatient (BNVA) | payer MEDICARE, SELFPAY | PROVIDERS: PCP Internal Medicine; Visit Provider Internal Medicine | DX: I47.10 Supraventricular tachycardia, unspecified (principal); J45.20 Mild intermittent asthma, uncomplicated; F17.210 Nicotine dependence, cigarettes, uncomplicated; Z87.442 Personal history of urinary calculi; F41.1 Generalized anxiety disorder; Z13.31 Encounter for screening for depression; Z23 Encounter for immunization | CPT/HCPCS: 90471; 90656; 96127; 99212 ==

== ENCOUNTER 2025-04-21 08:13 | Outpatient (REF) | payer MEDICARE, SELFPAY ==
[2025-04-21 08:44] LABS: MANUAL DIFF FLAG NO
[2025-04-21 09:19] LABS: Hematocrit 36.9 % (37.0-47.0); Hemoglobin 12.4 g/dl (12.0-16.0); Imm Gran Abs Auto 0.02 X10*3/uL (0.00-0.03); Imm Gran Pct Auto 0.4 % (0.0-0.4); Lymphocytes Absolute Auto 0.9 X10*3/uL (1.2-4.9); Mean Corpuscular HGB Conc 33.6 g/dl (31.0-35.0); Mean Corpuscular Hemoglobin 36.2 pg (27.0-33.0); Mean Corpuscular Volume 107.6 fL (80.0-98.0); NRBC Abs Auto 0.000 X10*3/uL (0.0-0.012); NRBC Pct Auto 0.0 /100WBC (0.0-0.2); Platelet Count 310 X10*3/uL (160-400); Red Blood Count 3.43 X10*6/uL (4.20-5.50); Reticulocytes Absolute 0.058 X10*6/uL (0.026-0.095); White Blood Count 5.0 X10*3/uL (4.8-10.8)
[2025-04-21 09:53] LABS: Alanine Aminotransferase 22 U/L (0-31); Albumin Level 4.4 g/dL (3.5-5.0); Alkaline Phosphatase 85 U/L (39-117); Anion Gap 9 (12-20); Aspartate Amino Transferase 28 U/L (5-31); Blood Urea Nitrogen 10 mg/dL (9-16); Calcium 9.5 mg/dL (8.4-10.2); Carbon Dioxide 28 mmol/L (22-29); Chloride 111 mmol/L (96-108); Cholesterol 139 mg/dL (<200); Estimated Glomerular Filt Rate > 60; HDL Cholesterol 73 mg/dL (>40); Iron 111 mcg/dL (30-160); Percent Iron Saturation 41 % (15-50); Potassium 4.1 mmol/L (3.3-5.1); Sodium 144 mmol/L (135-145); Total Iron Binding Capacity 270 mcg/dL (228-428); Total Protein 7.3 g/dL (6.5-8.0); Triglycerides 63 mg/dL (<150); Unsaturated Iron Binding 159 ug/dL
[2025-04-21 10:07] LABS: Ferritin 242 ng/mL (10-250); Free T4 (Free Thyroxine) 1.03 ng/dL (0.71-1.85)
[2025-04-21 10:09] LABS: Thyroid Stimulating Hormone 1.40 uIU/mL (0.32-4.0)
[2025-04-21 10:22] LABS: Folate 13.3 ng/mL (> or = 4.0); Vitamin B12 > 2000 pg/mL (200-900)
[2025-04-21 14:25] LABS: Appearance Urine Clear; Glucose Urine UA Negative (Negative); PH 5.5 (5.0-9.0); Specific Gravity - Urine <= 1.005 (1.005-1.025); UMIC TRIGGER UACC YES
[2025-04-21 14:28] LABS: UACC Culture Trigger YES
== END 2025-04-21 08:14 | disposition home or self-care (01) ==
LOC: HO.LAB 08:13
PROVIDERS: Absent Provider Internal Medicine; PCP Internal Medicine; Visit Provider Internal Medicine
DX: I48.91 Unspecified atrial fibrillation (principal); E78.00 Pure hypercholesterolemia, unspecified; K50.80 Crohn's disease of both small and large intestine without complications; R30.0 Dysuria
CPT/HCPCS: 36415; 80053; 80061; 80076; 81001; 81003; 82248; 82306; 82607; 82728; 82746; 83540; 84439; 84443; 85025; 85045; 87086; 87088; 87186; 96372; J3420

== ENCOUNTER 2025-04-21 08:13 | Outpatient (AMB) | payer MEDICARE, SELFPAY ==
--- OUTSIDE RECORDS SUMMARY | 2023-10-28 05:40 | XMS_ITS ---
Author Organization [facility] Address [address] [place] [address] Care Team Providers Care Window Machine Operator Name Role Phone Tae Duarte MD Primary Care Provider Neymar Sanders [phone] REASON FOR VISIT crohn's Problems Problem Type SNOMED Code ICD Code Onset Dates Problem Status W/U Status Risk Notes Problem History of gastrointestinal tract bypass (155222823) Intestinal bypass and anastomosis status (Z98.0) Active confirmed Problem Diverticular disease of colon (695744560) Diverticulosis of large intestine without perforation or abscess without bleeding (K57.30) Active confirmed Encounters Encounter Location Date Provider Diagnosis [facility] Outpatient [address] [place] [id number] 10/28/2023 Neymar Sauer Encounter for scre ening colonoscopy Z12.11 ; Crohn''s disease of both small and large intestine without complication K50.80 ; Intestinal bypass and anastomosis status Z98.0 ; Diverticulosis of large intestine without perforation or abscess without bleeding K57.30 ; Other hemorrhoids K64.8 ; Gastro-esophageal reflux disease without esophagitis K21.9 ; Hiatal hernia K44.9 and Abdominal pain R10.9 Assessments Encounter Date Diagnosis (ICD Code) Assessment Notes Treatment Notes Treatment Clinical Notes Section Notes 10/28/2023 Encounter for screening colonoscopy (ICD-10 - Z12.11) 10/28/2023 Crohn''s disease of both small and large intestine without complication (ICD-10 - K50.80) 10/28/2023 Intestinal bypass and anastomosis status (ICD-10 - Z98.0) 10/28/2023 Diverticulosis of large intestine without perforation or abscess without bleeding (ICD-10 - K57.30) 10/28/2023 Other hemorrhoids (ICD-10 - K64.8) 10/28/2023 Gastro-esophageal reflux disease without esophagitis (ICD-10 - K21.9) 10/28/2023 Hiatal hernia (ICD-10 - K44.9) 10/28/2023 Abdominal pain (ICD-10 - R10.9) Plan Of Treatment Next Appt Details Provider Name:Neymar Sauer , 10/10/2025 09:50:00 AM, [address], [address], [place], [address], Progress Notes * EBEN BUNN ADOB:01/1955 (70 yo F)Acc No.[id number]:10/28/2023 EGD and COL/MAC Patient: Mel EBEN FENTON Provider: Alpesh Sauer MD :1955 A ge:68 Y S ex:Female Date:10/28/2023 Address:[address] [place] [id number] Pcp:Tae Duarte MD Subjective: * Chief Complaints: * C melissa's Assessment: * Assessment: 1. E ncounter for screening colonoscopy - Z12.11 (Primary) 2 . C rohn''s disease of both small and large intestine without complication - K50.80 3 . I ntestinal bypass and anastomosis status - Z98.0 4 . D iverticulosis of large intestine without perforation or abscess without bleeding - K57.30 5 . O ther hemorrhoids - K64.8 6 . G robyn-esophageal reflux disease without esophagitis - K21.9? 7. H iatal hernia - K44.9 8 . A bdominal pain - R10.9 ? Plan: * Procedure Codes: 4 5380 COLONOSCOPY AND BIOPSY, Modifiers: PT 0529F INTRVL 3+YRS PTS CLNSCP DOCD, Modifiers: 8P 0528F RCMND FLW-UP 10 YRS DOCD, Modifiers: 1P 01904 UPPR GI ENDOSCOPY, DIAGNOSIS Billing Information: * Procedure Codes: 30523 COLONOSCOPY AND BIOPSY. Modifiers: PT 0529F INTRVL 3+YRS PTS CLNSCP DOCD. Modifiers: 8P 0528F RCMND FLW-UP 10 YRS DOCD. Modifiers: 1P 96894 UPPR GI ENDOSCOPY, DIAGNOSIS. * The named appointment provid er may or may not be the originator of this progress note, and it is not deemed complete until electronically signed by the appointment provider. Sign off status: Pending * Provider: Alpesh Sauer MD Date: 0 10/28/[address] adame/Dexter/Kekesmitting on: 06/21/2024 08:16 AM EST
--- OUTSIDE RECORDS SUMMARY | 2025-03-21 05:20 | XMS_ITS ---
Author Organization [facility] Address [address] [place] [address] Care Team Providers Care Set Painter Name Role Phone Tae Duarte MD Primary Care Provider Neymar Sanders [phone] REASON FOR VISIT gerd Encounters Encounter Location Date Provider Diagnosis [facility] [address] [place] [phone] 03/21/2025 Neymar Sauer Plan Of Treatment Next Appt Details Provider Name:Neymar Sauer , 10/10/2025 09:50:00 AM, [address], [address], [place], [address], Progress Notes * EBEN BUNN ADOB:01/1955 (70 yo F)Acc No.[id number]:03/21/2025 Progress Notes Patient: Mel HEARDYoung EBEN Petty Provider: Alpesh Sauer MD :1955 A ge:69 Y S ex:Female Date:03/21/2025 Address:[address] [id number] Pcp:Tae Duarte MD Subjective: * Chief Complaints: * G erd * The named appointment provid er may or may not be the originator of this progress note, and it is not deemed complete until electronically signed by the appointment provider. Sign off status: Pending * Provider: Alpesh Sauer MD Date: Generated for Ct adame/Dexter/Efrenitting on: 06/21/2024 08:16 AM EST
--- OUTSIDE RECORDS SUMMARY | 2025-04-11 04:10 | XMS_ITS ---
Author Organization [facility] Address [address] [place] [address] Care Team Providers Care C Consultant Name Role Phone Tae Duarte MD Primary Care Provider Neymar Sanders [phone] Allergies Allergen (clinical drug ingredient) Drug/Non Drug Allergy documented on EMR Reaction Allergy Type Onset Date Status Darvon Unknown Drug Allergy Active tetracycline Tetracycline HCl Unknown Drug Allergy Active REASON FOR VISIT Patient presents today for gerd Medications Medication SIG (Take, Route, Frequency, Duration) Notes Start Date End Date Status Raloxifene HCl Unkno wn Vitamin D3 50 MCG (1999) Capsule TAKE 1 CAPSULE BY MOUTH EVERY DAY Oral; Duration: 90 Days Active Multaq 400 MG Tablet Oral; Duration: 90 Days Active Cyanocobalamin 1000 MCG/ML Solution INJECT 1ML EVERY 4 WEEKS Injection; Duration: 84 Active Multaq 400 MG Tablet TAKE 1 TABLET BY MOUTH TWICE DAILY Oral; Duration: 30 Days Not-Taking/PRN Raloxifene HCl 60 MG Tablet TAKE 1 TABLET BY MOUTH EVERY DAY Oral; Duration: 90 Days Active Dicyclomine HCl 10 MG Capsule 1 or 2 capsules every 6 hours if needed for abdominal cramps/discomfort Orally Every 6 hours if needed; Duration: 90 days Active Methenamine Hippurate 1 GM Tablet TAKE 1 TABLET BY MOUTH EVERY DAY Oral; Duration: 90 Days Active Vitamin C 1000 MG Tablet TAKE 1 TABLET BY MOUTH EVERY DAY Oral; Duration: 90 Days Active Eliquis 5 MG Tablet Oral; Duration: 90 Days Active Omeprazole 20 MG Capsule Delayed Release TAKE 1 CAPSULE BY MOUTH EVERY DAY; Duration: 90 Active azaTHIOprine 50 MG Tablet TAKE 2 TABLETS BY MOUTH EVERY DAY; Duration: 90 Active Omeprazole 20 MG Delayed Release Capsule take 1 capsule by mouth once daily Orally Once a day Active Pentasa 500 MG Capsule Extended Release TAKE 2 CAPSULES BY MOUTH 4 TIMES A DAY 90 DAYS; Duration: 90 Brand Name Only , Active Cholestyramine 4 GM/DOSE Powder use anywhere from 1/4 to 1 scoop Orally Once or twice a day a needed for diarrhea; Duration: 30 days Active traMADol HCl 50mg Tablet 1 tablet as needed Orally every 8 hours prn Active Vitamin B-6 100 MG Tablet 1 tablet Orally twice a day; Duration: 30 days Active busPIRone HCl 10 MG Tablet 1 tablet Orally once a day Active Social History Tobacco Use: Social History Observation Description Date Details (start date - stop date) Current Smoker NA - NA Social History Drug/Alcohol: Social Info Question Answer Notes AUDIT-C (Standard) Did you have a drink containing alcohol in the past year? Yes How often did you have a drink containing alcohol in the past year? Monthly or less (1 point) How many drinks did you have on a typical day when you were drinking in the past year? 1 or 2 drinks (0 point) How often did you have six or more drinks on one occasion in the past year? 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; no sig alcohol Problems Problem Type SNOMED Code ICD Code Onset Dates Problem Status W/U Status Risk Notes Problem Colon cancer screening (539333498) Colon cancer screening (Z12.11) Active confirmed Vital Signs Temperature 96 degrees Fahrenheit 04/11/2025 Blood pressure systolic 001 mm Hg 04/11/20 25 Blood pressure diastolic 01 mm Hg 025 Height 65 in 04/11/2025 Weight 123.2 lbs 04/11/2025 BMI 20.5 kg/m2 04/11/2025 Encounters Encounter Location Date Provider Diagnosis [facility] [address] [place] [address] 04/11/2025 Neymar Sauer Crohns disease of [place] small and large intestine without complication K50.80 ; Gastro-esophageal reflux disease without esophagitis K21.9 ; History of adenomatous polyp of colon Z86.010 and Colon cancer screening Z12.11 Assessments Encounter Date Diagnosis (ICD Code) Assessment Notes Treatment Notes Treatment Clinical Notes Section Notes 04/11/2025 Crohns disease of both small and large intestine without complication (ICD-10 - K50.80) Continue the same Pentasa and Azathioprine regimen. Continue the same labs. Continue the Dicyclomine as needed for cramps- can take before a meal to try to prevent cramps and discomfort. Restart the Cholestyramine powder if needed for loose stools Overall, Vivian appears well in general and her GI issues seem to be very stable in particular. As such, I did advise her to continue her current medical regimen of her Pentasa and azathioprine for her Crohn's disease. She will continue to have her CBC and liver profile monthly. I did advise her to continue her B12 shots in Dr. Duarte's office every month. I did advise her to continue her daily omeprazole for her history of reflux. She will continue to use dicyclomine and cholestyramine either daily or as needed for abdominal cramps and diarrhea, respectively. I do not think she needs any further diagnostic studies at this time. I will plan to see her in 6 months for a follow-up office visit but did advise her to certainly call prior to that if she has any problems or questions I can be of assistance with. Vivian was very comfortable with this plan. Thank you again for allowing me to participate in Vivian's care. I shall continue to keep you advised of her progress. 04/11/2025 Gastro-esophage al reflux disease without esophagitis (ICD-10 - K21.9) Continue daily omeprazole, eat slowly and carefully Overall, Vivian appears well in general and her GI issues seem to be very stable in particular. As such, I did advise her to continue her current medical regimen of her Pentasa and azathioprine for her Crohn's disease. She will continue to have her CBC and liver profile monthly. I did advise her to continue her B12 shots in Dr. Duarte's office every month. I did advise her to continue her daily omeprazole for her history of reflux. She will continue to use dicyclomine and cholestyramine either daily or as needed for abdominal cramps and diarrhea, respectively. I do not think she needs any further diagnostic studies at this time. I will plan to see her in 6 months for a follow-up office visit but did advise her to certainly call prior to that if she has any problems or questions I can be of assistance with. Vivian was very comfortable with this plan. Thank you again for allowing me to participate in Vivian's care. I shall continue to keep you advised of her progress. 04/11/2025 History of adenomatous polyp of colon (ICD-10 - Z86.010) Overall, Vivian appears well in general and her GI issues seem to be very stable in particular. As such, I did advise her to continue her current medical regimen of her Pentasa and azathioprine for her Crohn's disease. She will continue to have her CBC and liver profile monthly. I did advise her to continue her B12 shots in Dr. Duarte's office every month. I did advise her to continue her daily omeprazole for her history of reflux. She will continue to use dicyclomine and cholestyramine either daily or as needed for abdominal cramps and diarrhea, respectively. I do not think she needs any further diagnostic studies at this time. I will plan to see her in 6 months for a follow-up office visit but did advise her to certainly call prior to that if she has any problems or questions I can be of assistance with. Vivian was very comfortable with this plan. Thank you again for allowing me to participate in Vivian's care. I shall continue to keep you advised of her progress. 04/11/2025 Colon cancer screening (ICD-10 - Z12.11) Overall, Vivian appears well in general and her GI issues seem to be very stable in particular. As such, I did advise her to continue her current medical regimen of her Pentasa and azathioprine for her Crohn's disease. She will continue to have her CBC and liver profile monthly. I did advise her to continue her B12 shots in Dr. Duarte's office every month. I did advise her to continue her daily omeprazole for her history of reflux. She will continue to use dicyclomine and cholestyramine either daily or as needed for abdominal cramps and diarrhea, respectively. I do not think she needs any further diagnostic studies at this time. I will plan to see her in 6 months for a follow-up office visit but did advise her to certainly call prior to that if she has any problems or questions I can be of assistance with. Vivian was very comfortable with this plan. Thank you again for allowing me to participate in Vivian's care. I shall continue to keep you advised of her progress. Plan Of Treatment Treatment Notes Assessment Notes Crohns disease of both small and large intestine without complication Continue the same Pentasa and Azathiopri ne regimen. Continue the same labs. Continue the Dicyclomine as needed for cramps- can take before a meal to try to prevent cramps and discomfort. Restart the Cholestyramine powder if needed for loose stools Gastro-esophageal reflux dis ease without esophagitis Continue daily omeprazole, eat slowly an d carefully Pending Test Test Name Order Date LIVER PROFILE 04/11/2025 CBC w DIFF 04/11/2025 Next Appt Details Follow Up: 6 Months, Reason: Provider Name:Neymar Mike Sauer , 10/10/2025 09:50:00 AM, [address] [place] [address], [address], [place], [address], History and Physical Notes * HPI (History of Present Illness) Category Sub-Category Detail Notes Category Not es incontinence I saw Vivian in follow-up today to her underlying history of Crohn's disease, gastroesophageal reflux, and discussion of colorectal cancer screening. I last saw Vivian in the office in August. At that time she was doing well in regard to her Crohn's disease. She was hospitalized in late September with urosepsis from a kidney stone. I saw her during that admission in regard to some anemia and diarrhea. There was no sign of GI bleeding and the anemia was felt to be in relation to her acute illness. She did have C. difficile in relation to antibiotics but this resolved with oral vancomycin. She did develop atrial fibrillation during that hospitalization as well. Since discharge from the hospital she has made a slow but good recovery. She reports that she is on the same regimen for her Crohn disease as previous including the Pentasa 1 g 4 times daily, azathioprine 100 mg daily, dicyclomine, B12 shots, and cholestyramine powder as needed. She also takes the daily omeprazole for her reflux. From a GI standpoint she is doing very well. She is eating comfortably and denies any significant heartburn or dysphagia. She denies any abdominal pain, nausea, or vomiting. Her bowel movements have been regular and without any significant diarrhea, hematochezia, nor melena. She denies any jaundice. Her weight has been stable although she did lose some weight when she was in the hospital. Her most recent labs on February 20 showed a hemoglobin of 12.2, normal white blood cell count and platelet count, and a completely normal liver profile with an albumin of 4.4. Progress Notes * VIVIAN BUNN ADOB:01/1955 (70 yo F)Acc No.[id number]:04/11/2025 Progress Notes Patient: VIVIAN CALLOWAY Provider: Alpesh Sauer MD :1955 A ge:70 Y S ex:Female Date:04/11/2025 Address:[address] [place] [address] [facility] [place], [id number] Pcp:Tae Duarte MD Subjective: * Chief Complaints: * P atient presents today for gerd * HPI: i ncontinence: I saw Vivian in follow-up today to her underlying history of Crohn's disease, gastroesophageal reflux, and discussion of colorectal cancer screening. I last saw Vivian in the office in August. At that time she was doing well in regard to her Crohn's disease. She was hospitalized in late September with urosepsis from a kidney stone. I saw her during that admission in regard to some anemia and diarrhea. There was no sign of GI bleeding and the anemia was felt to be in relation to her acute illness. She did have C. difficile in relation to antibiotics but this resolved with oral vancomycin. She did develop atrial fibrillation during that hospitalization as well. Since discharge from the hospital she has made a slow but good recovery. She reports that she is on the same regimen for her Crohn disease as previous including the Pentasa 1 g 4 times daily, azathioprine 100 mg daily, dicyclomine, B12 shots, and cholestyramine powder as needed. She also takes the daily omeprazole for her reflux. From a GI standpoint she is doing very well. She is eating comfortably and denies any significant heartburn or dysphagia. She denies any abdominal pain, nausea, or vomiting. Her bowel movements have been regular and without any significant diarrhea, hematochezia, nor melena. She denies any jaundice. Her weight has been stable although she did lose some weight when she was in the hospital. Her most recent labs on February 20 showed a hemoglobin of 12.2, normal white blood cell count and platelet count, and a completely normal liver profile with an albumin of 4.4. * Medical History: Crohn's disease of SI and colon-diagnosed in the early and had a right ileocolectomy with Dr. Lima in . 1989- colonoscopy in 06/2010 with mild ileocolitis and a single tubular adenoma- no dysplasia She does describe that she developed some [...] the area of the femoral neck Denies OK,DM,CVA,Lung disease,renal disease Anxiety GERD- EGD in 04/2007 was neg. except a small HH-bx. neg for celiac disease and neg. for H.pylori Colonoscopy 06/2013- no active colitis- bx neg for dysplasia- tubular adenoma removed in 2010 Colonoscopy in 07/2018-normal colon and colonic biopsies were neg. for dysplasia- there was some minmal ileitis, but the majority of the ileum that was visualized appeared normal EGD-02/29/2020- minimal HH, no esophagitis/no Vinson's, mild gastritis-bx neg for H.pylori Urinary incontinence-sees Dr. Mcfarlane Kidney stones 03/2022 with Hydronephrosis- s/p ESWL and cysto Upper endoscopy in September of 2023 revealed a small hiatal hernia but no sign of esophagitis or Vinson's esophagus Colonoscopy in September of 2023 revealed a normal anastomosis without any stricture, a normal distal small bowel without any active ileitis, and a normal colon without any polyps or active colitis. All the biopsies from the colon were negative for dysplasia as well. Hospitalized in October 2024 with urosepsis from a kidney stone that required a stent placement and lithotripsy with Dr. Mcfarlane. Atrial fibrillation developed during her above hospitalization for urosepsis Had C. difficile while she was in the hospital during the above illness and treated with vancomycin Medical History Verified * Surgical History: Crohn's disease in 1989 with right ileocolectomy with Dr. Lima Benign breast biopsy BTL Cyst behind right ear removed November 2012 Removed basal call carcinoma from taoism Dec 2012 Lap [facility]-Dr. Leahy 04/17/2015 Squamous cell cancer on scalp and forehead 2018 She is scheduled for a hysteroscopy and D&C with Dr. Carcamo for 03/14/2022 D&C polyp in uterus benign 2021 Ganglion cyst on wrist removed 12/2022 Surgical History verified. * Hospitalization/Major Diagno stic Procedure: Sepsis from kidney stone, Stent put in 10/25/2024 Hospitalization Verified. * Family History: F ather: , diagnosed with Heart disease. M other: , diagnosed with HTN (hypertension). S iblings: alive, crohn. F amily History Verified.. No GI Malignancy, brother with Crohn's No Family HX of colon or liver cancer. * Social History: T obacco Use: T obacco Control (Standard) T obacco use: C urrent smoker. D rugs/Alcohol: A lcohol Screen P oints: 2, Interpretation: Negative. M iscellaneous: M arital status: . 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 D rug/Alcohol: A OZZY-C (Standard) D id you have a drink containing alcohol in the past year? Y es,?How often did you have a drink containing alcohol in the past year? M onthly or less (1 point), H ow many drinks did you have on a typical day when you were drinking in the past year? 1 or 2 drinks (0 point), H ow often did you have six or more drinks on one occasion in the past year? N ever (0 point), P oints 1 , I nterpretation N egative. Social History Verified. S mokes; no sig alcohol. * Medications: T akingVitamin B-6 100 MG Tablet 1 tablet Orally twice a day busPIRone HCl 10 MG Tablet 1 tablet Orally once a day traMADol HCl 50mg Tablet 1 tablet as needed Orally every 8 hours , Notes to Pharmacist: prnOmeprazole 20 MG Delayed Release Capsule take 1 capsule by mouth once daily Orally Once a day Cholestyramine 4 GM/DOSE Powder use anywhere from 1/4 to 1 scoop Orally Once or twice a day a needed for diarrhea Pentasa 500 MG Capsule Extended Release TAKE 2 CAPSULES BY MOUTH 4 TIMES A DAY 90 DAYS , Notes to Pharmacist: Brand Name Only ,azaTHIOprine 50 MG Tablet TAKE 2 TABLETS BY MOUTH EVERY DAY Omeprazole 20 MG Capsule Delayed Release TAKE 1 CAPSULE BY MOUTH EVERY DAY Dicyclomine HCl 10 MG Capsule 1 or 2 capsules every 6 hours if needed for abdominal cramps/discomfort Orally Every 6 hours if needed Raloxifene HCl 60 MG Tablet TAKE 1 TABLET BY MOUTH EVERY DAY Oral Eliquis 5 MG Tablet Oral Vitamin C 1000 MG Tablet TAKE 1 TABLET BY MOUTH EVERY DAY Oral Methenamine Hippurate 1 GM Tablet TAKE 1 TABLET BY MOUTH EVERY DAY Oral Multaq 400 MG Tablet Oral Vitamin D3 50 MCG (2000 UT) Capsule TAKE 1 CAPSULE BY MOUTH EVERY DAY Oral Cyanocobalamin 1000 MCG/ML Solution INJECT 1ML EVERY 4 WEEKS Injection Taking Vitamin B-6 100 MG Tablet 1 tablet Orally twice a day Taking busPIRone HCl 10 MG Tablet 1 tablet Orally once a day Taking traMADol HCl 50mg Tablet 1 tablet as needed Orally every 8 hours , Notes to Pharmacist: prnTaking Omeprazole 20 MG Delayed Release Capsule take 1 capsule by mouth once daily Orally Once a day Taking Cholestyramine 4 GM/DOSE Powder use anywhere from 1/4 to 1 scoop Orally Once or twice a day a needed for diarrhea Taking Pentasa 500 MG Capsule Extended Release TAKE 2 CAPSULES BY MOUTH 4 TIMES A DAY 90 DAYS , Notes to Pharmacist: Brand Name Only ,Taking azaTHIOprine 50 MG Tablet TAKE 2 TABLETS BY MOUTH EVERY DAY Taking Omeprazole 20 MG Capsule Delayed Release TAKE 1 CAPSULE BY MOUTH EVERY DAY Taking Dicyclomine HCl 10 MG Capsule 1 or 2 capsules every 6 hours if needed for abdominal cramps/discomfort Orally Every 6 hours if needed Taking Raloxifene HCl 60 MG Tablet TAKE 1 TABLET BY MOUTH EVERY DAY Oral Taking Eliquis 5 MG Tablet Oral Taking Vitamin C 1000 MG Tablet TAKE 1 TABLET BY MOUTH EVERY DAY Oral Taking Methenamine Hippurate 1 GM Tablet TAKE 1 TABLET BY MOUTH EVERY DAY Oral Taking Multaq 400 MG Tablet Oral Taking Vitamin D3 50 MCG (2000 UT) Capsule TAKE 1 CAPSULE BY MOUTH EVERY DAY Oral Taking Cyanocobalamin 1000 MCG/ML Solution INJECT 1ML EVERY 4 WEEKS Injection Not-Taking/PRNMultaq 400 MG Tablet TAKE 1 TABLET BY MOUTH TWICE DAILY Oral Not-Taking/PRN Multaq 400 MG Tablet TAKE 1 TABLET BY MOUTH TWICE DAILY Oral UnknownRaloxifene HCl Medication List reviewed and reconciled with the patientUnknown Raloxifene HCl Medication List reviewed and reconciled with the patient * Allergies: D arvonTetracycline HClyesAllergies Verified. Objective: * Vitals: W t: 123.2 lbs, Ht: 65 in, BMI: 20.5 Index, BP: 001/01 mm Hg, Temp: 96 F, Wt-k.88 kg. Assessment: * Assessment: 1. C rohns disease of both small and large intestine without complication - K50.80 (Primary)? 2. G robyn-esophageal reflux disease without esophagitis - K21.9 3 . H istory of adenomatous polyp of colon - Z86.010 4 . C olon cancer screening - Z12.11 Overall, Vivian appears w ell in general and her GI issues seem to be very stable in particular. As such, I did advise her to continue her current medical regimen of her Pentasa and azathioprine for her Crohn's disease. She will continue to have her CBC and liver profile monthly. I did advise her to continue her B12 shots in Dr. Duarte's office every month. I did advise her to continue her daily omeprazole for her history of reflux. She will continue to use dicyclomine and cholestyramine either daily or as needed for abdominal cramps and diarrhea, respectively. I do not think she needs any further diagnostic studies at this time. I will plan to see her in 6 months for a follow-up office visit but did advise her to certainly call prior to that if she has any problems or questions I can be of assistance with. Vivian was very comfortable with this plan. Thank you again for allowing me to participate in Vivian's care. I shall continue to keep you advised of her progress. Plan: * Treatment: ?LAB: CBC w DIFF* Monthly Notes: Continue the same Pentasa? and Azathioprine regimen. Continue the same labs. Continue the Dicyclomine as needed for cramps- can take before a meal to try to prevent cramps and discomfort.Restart the Cholestyramine powder if needed for loose stools??2.?Gastro-esophageal reflux disease without esophagitis? Notes: Continue daily omeprazole, eat slowly and carefully?? * Preventive Medicine: Urinary Incontinence: U rinary Incontinence A ssessment: P resent, P vivian of care documented: Y es, T ype of plan of care: B ladder training. Screenings: F all Risk Screening F all Risk Assessment: N o falls in the past year, S creening: N o falls in the past year, A ssessment: N ot performed, no reason specified, P vivian of Care: N ot documented, no reason specified. * Follow Up: 6 Months Billing Information: * Procedure Codes: * The named appointment provid er may or may not be the originator of this progress note, and it is not deemed complete until electronically signed by the appointment provider. Sign off status: Pending * Provider: Alpesh Sauer MD Date: 06/11/[address] adame/Dexter/Efrenitting on: 06/21/2024 08:16 AM EST
--- OUTSIDE RECORDS SUMMARY | 2025-04-21 08:17 | XMS_ITS | Patient Health Record ---
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 Name Role Phone Po Tae FERRER Primary Care Provider Neymar Sanders [phone] Allergies Allergen (clinical drug ingredient) Drug/Non Drug Allergy documented on EMR Reaction Allergy Type Onset Date Status Darvon Unknown Drug Allergy Active tetracycline Tetracycline HCl Unknown Drug Allergy Active Results Component Value Reference Range Flag Notes Complete Blood Count Auto Di ff Reviewed date:04/23/2024 09:32:52 AM Interpretation: Performing Lab:[facility], [address] [place] [phone] Notes/Report: White Blood Count 5.5 4.8-10.8 X10*3/uL N Red Blood Count 3.79 4.20-5.50 X10*6/uL L Hemoglobin 13.4 12.0-16.0 g/dl N Hematocrit 39.1 37.0-47.0 % N Mean Corpuscular Volume 103.2 80.0-98.0 fL H Mean Corpuscular Hemoglobin 35.4 27.0-33.0 pg H Mean Corpuscular HGB Conc 34.3 31.0-35.0 g/dl N Red Cell Distribution Width 13.8 11.0-16.0 % N Platelet Count 331 160-400 X10*3/uL N Mean Platelet Volume 9.7 9.4-12.3 fL N Neutrophils Percent Auto 70.8 45-73 % N Imm Gran Pct Auto 0.4 0.0-0.4 % N Lymphocytes Percent Auto 15.3 20-40 % L Monocytes Percent Auto 7.5 2-11 % N Eosinophils Percent Auto 4.7 0-4 % H Basophils Percent Auto 1.3 0-2 % N NRBC Pct Auto 0.0 0.0-0.2 /100WBC N Neutrophils Absolute Auto 3.9 2.0-8.3 x10*3/uL N Imm Gran Abs Auto 0.02 0.00-0.03 X10*3/uL N Lymphocytes Absolute Auto 0.8 1.2-4.9 X10*3/uL L Monocytes Absolute Auto 0.4 0.1-1.2 X10*3/uL N Eosinophils Absolute Auto 0.3 0.0-0.4 X10*3/uL N Basophils Absolute Auto 0.1 0.0-0.2 X10*3/uL N NRBC Abs Auto 0.000 0.0-0.012 X10*3/uL N Liver Panel Reviewed date:04/23/2024 09:33:16 AM Interpretation: Performing Lab:[facility], [address] [place] [phone] Notes/Report: Bilirubin Total 0.4 0.0-1.0 mg/dL N Bilirubin Direct 0.1 0.0-0.5 mg/dL N Aspartate Amino Transferase 23 5-31 U/L N Alanine Aminotransferase 16 0-31 U/L N Total Protein 7.1 6.5-8.0 g/dL N Albumin Level 4.3 3.5-5.0 g/dL N Alkaline Phosphatase 86 39-117 U/L N Complete Blood Count Auto Di ff Reviewed date:05/20/2024 04:02:01 PM Interpretation: Performing Lab:[facility], [address] [place] [phone] Notes/Report: White Blood Count 4.9 4.8-10.8 X10*3/uL N Red Blood Count 3.74 4.20-5.50 X10*6/uL L Hemoglobin 13.3 12.0-16.0 g/dl N Hematocrit 39.0 37.0-47.0 % N Mean Corpuscular Volume 104.3 80.0-98.0 fL H Mean Corpuscular Hemoglobin 35.6 27.0-33.0 pg H Mean Corpuscular HGB Conc 34.1 31.0-35.0 g/dl N Red Cell Distribution Width 13.5 11.0-16.0 % N Platelet Count 298 160-400 X10*3/uL N Mean Platelet Volume 9.4 9.4-12.3 fL N Neutrophils Percent Auto 66.3 45-73 % N Imm Gran Pct Auto 0.2 0.0-0.4 % N Lymphocytes Percent Auto 17.2 20-40 % L Monocytes Percent Auto 10.0 2-11 % N Eosinophils Percent Auto 4.9 0-4 % H Basophils Percent Auto 1.4 0-2 % N NRBC Pct Auto 0.0 0.0-0.2 /100WBC N Neutrophils Absolute Auto 3.2 2.0-8.3 x10*3/uL N Imm Gran Abs Auto 0.01 0.00-0.03 X10*3/uL N Lymphocytes Absolute Auto 0.8 1.2-4.9 X10*3/uL L Monocytes Absolute Auto 0.5 0.1-1.2 X10*3/uL N Eosinophils Absolute Auto 0.2 0.0-0.4 X10*3/uL N Basophils Absolute Auto 0.1 0.0-0.2 X10*3/uL N NRBC Abs Auto 0.000 0.0-0.012 X10*3/uL N Liver Panel Reviewed date:05/20/2024 04:02:33 PM Interpretation: Performing Lab:[address] [phone] Notes/Report: Bilirubin Total 0.4 0.0-1.0 mg/dL N Bilirubin Direct 0.1 0.0-0.5 mg/dL N Aspartate Amino Transferase 29 5-31 U/L N Alanine Aminotransferase 19 0-31 U/L N Total Protein 7.0 6.5-8.0 g/dL N Albumin Level 4.1 3.5-5.0 g/dL N Alkaline Phosphatase 82 39-117 U/L N Complete Blood Count Auto Di ff Reviewed date:06/21/2024 10:33:11 AM Interpretation: Performing Lab:[address] [phone] Notes/Report: White Blood Count 4.2 4.8-10.8 X10*3/uL L Red Blood Count 3.85 4.20-5.50 X10*6/uL L Hemoglobin 13.5 12.0-16.0 g/dl N Hematocrit 40.3 37.0-47.0 % N Mean Corpuscular Volume 104.7 80.0-98.0 fL H Mean Corpuscular Hemoglobin 35.1 27.0-33.0 pg H Mean Corpuscular HGB Conc 33.5 31.0-35.0 g/dl N Red Cell Distribution Width 13.8 11.0-16.0 % N Platelet Count 272 160-400 X10*3/uL N Mean Platelet Volume 9.9 9.4-12.3 fL N Neutrophils Percent Auto 61.5 45-73 % N Imm Gran Pct Auto 0.2 0.0-0.4 % N Lymphocytes Percent Auto 18.8 20-40 % L Monocytes Percent Auto 12.1 2-11 % H Eosinophils Percent Auto 6.0 0-4 % H Basophils Percent Auto 1.4 0-2 % N NRBC Pct Auto 0.0 0.0-0.2 /100WBC N Neutrophils Absolute Auto 2.6 2.0-8.3 x10*3/uL N Imm Gran Abs Auto 0.01 0.00-0.03 X10*3/uL N Lymphocytes Absolute Auto 0.8 1.2-4.9 X10*3/uL L Monocytes Absolute Auto 0.5 0.1-1.2 X10*3/uL N Eosinophils Absolute Auto 0.3 0.0-0.4 X10*3/uL N Basophils Absolute Auto 0.1 0.0-0.2 X10*3/uL N NRBC Abs Auto 0.000 0.0-0.012 X10*3/uL N Liver Panel Reviewed date:06/21/2024 10:33:28 AM Interpretation: Performing Lab:[facility], [address] [place] [phone] Notes/Report: Bilirubin Total 0.4 0.0-1.0 mg/dL N Bilirubin Direct 0.1 0.0-0.5 mg/dL N Aspartate Amino Transferase 24 5-31 U/L N Alanine Aminotransferase 24 0-31 U/L N Total Protein 7.3 6.5-8.0 g/dL N Albumin Level 4.2 3.5-5.0 g/dL N Alkaline Phosphatase 87 39-117 U/L N Complete Blood Count Auto Di ff Reviewed date:07/22/2024 05:28:16 PM Interpretation: Performing Lab:[facility], [address] [place] [phone] Notes/Report: White Blood Count 5.1 4.8-10.8 X10*3/uL N Red Blood Count 3.66 4.20-5.50 X10*6/uL L Hemoglobin 12.8 12.0-16.0 g/dl N Hematocrit 36.9 37.0-47.0 % L Mean Corpuscular Volume 100.8 80.0-98.0 fL H Mean Corpuscular Hemoglobin 35.0 27.0-33.0 pg H Mean Corpuscular HGB Conc 34.7 31.0-35.0 g/dl N Red Cell Distribution Width 13.8 11.0-16.0 % N Platelet Count 343 160-400 X10*3/uL Mean Platelet Volume 10.1 9.4-12.3 fL N Neutrophils Percent Auto 68.6 45-73 % N Imm Gran Pct Auto 0.4 0.0-0.4 % N Lymphocytes Percent Auto 15.5 20-40 % L Monocytes Percent Auto 10.4 2-11 % N Eosinophils Percent Auto 3.9 0-4 % N Basophils Percent Auto 1.2 0-2 % N NRBC Pct Auto 0.0 0.0-0.2 /100WBC N Neutrophils Absolute Auto 3.5 2.0-8.3 x10*3/uL N Imm Gran Abs Auto 0.02 0.00-0.03 X10*3/uL N Lymphocytes Absolute Auto 0.8 1.2-4.9 X10*3/uL L Monocytes Absolute Auto 0.5 0.1-1.2 X10*3/uL N Eosinophils Absolute Auto 0.2 0.0-0.4 X10*3/uL N Basophils Absolute Auto 0.1 0.0-0.2 X10*3/uL N NRBC Abs Auto 0.000 0.0-0.012 X10*3/uL N Comprehensive Met. Panel Reviewed date:07/26/2024 06:49:01 PM Interpretation: Performing Lab:[facility], [address] [place] [phone] Notes/Report: Sodium 139 135-145 mmol/L N Potassium 3.9 3.3-5.1 mmol/L N Chloride 108 96-108 mmol/L N Carbon Dioxide 25 22-29 mmol/L N Anion Gap 10 12-20 L Blood Urea Nitrogen 7 9-16 mg/dL L Creatinine 0.55 0.5-1.4 mg/dL N Estimated Glomerular Filt Rate > 60 Chronic Kidney Disease: Estimated GFR < 60 mL/min/1.73m2 Severe Kidney Disease: Estimated GFR < 15 mL/min/1.73m2 Glucose Random 110 60-115 mg/dL N Calcium 9.3 8.4-10.2 mg/dL N Bilirubin Total 0.4 0.0-1.0 mg/dL N Aspartate Amino Transferase 28 5-31 U/L N Alanine Aminotransferase 23 0-31 U/L N Total Protein 7.0 6.5-8.0 g/dL N Albumin Level 3.9 3.5-5.0 g/dL N Alkaline Phosphatase 91 39-117 U/L N Liver Panel Reviewed date:07/26/2024 06:49:13 PM Interpretation: Performing Lab:[facility], [address] [place] [phone] Notes/Report: Bilirubin Direct 0.2 0.0-0.5 mg/dL N IRON PROFILE Reviewed date:07/26/2024 06:49:29 PM Interpretation: Performing Lab:[facility], [address] [place] [phone] Notes/Report: Iron 94 30-160 mcg/dL N Total Iron Binding Capacity 257 228-428 mcg/dL N Percent Iron Saturation 37 15-50 % N Unsaturated Iron Binding 163 Lipid Panel Reviewed date:07/26/2024 06:49:37 PM Interpretation: Performing Lab:[facility], [address] [place] [phone] Notes/Report: Triglycerides 72 <150 mg/dL Desirable Triglyceride: [...] Hormone Reviewed date:07/26/2024 06:49:57 PM Interpretation: Performing Lab:[facility], [address] [place] [phone] Notes/Report: Thyroid Stimulating Hormone 1.50 0.32-4.0 uIU/mL N TSH 3rd Generation ([employer]) Complete Blood Count Auto Di ff Reviewed date:09/19/2024 08:11:23 PM Interpretation: Performing Lab:[facility], [address] [place] [phone] Notes/Report: White Blood Count 4.4 4.8-10.8 X10*3/uL L Red Blood Count 3.98 4.20-5.50 X10*6/uL L Hemoglobin 13.6 12.0-16.0 g/dl N Hematocrit 40.7 37.0-47.0 % N Mean Corpuscular Volume 102.3 80.0-98.0 fL H Mean Corpuscular Hemoglobin 34.2 27.0-33.0 pg H Mean Corpuscular HGB Conc 33.4 31.0-35.0 g/dl N Red Cell Distribution Width 13.6 11.0-16.0 % N Platelet Count 264 160-400 X10*3/uL N Mean Platelet Volume 9.8 9.4-12.3 fL N Neutrophils Percent Auto 62.0 45-73 % N Imm Gran Pct Auto 0.2 0.0-0.4 % N Lymphocytes Percent Auto 18.3 20-40 % L Monocytes Percent Auto 13.1 2-11 % H Eosinophils Percent Auto 5.3 0-4 % H Basophils Percent Auto 1.1 0-2 % N NRBC Pct Auto 0.0 0.0-0.2 /100WBC N Neutrophils Absolute Auto 2.7 2.0-8.3 x10*3/uL N Imm Gran Abs Auto 0.01 0.00-0.03 X10*3/uL N Lymphocytes Absolute Auto 0.8 1.2-4.9 X10*3/uL L Monocytes Absolute Auto 0.6 0.1-1.2 X10*3/uL N Eosinophils Absolute Auto 0.2 0.0-0.4 X10*3/uL N Basophils Absolute Auto 0.1 0.0-0.2 X10*3/uL N NRBC Abs Auto 0.000 0.0-0.012 X10*3/uL N Liver Panel Reviewed date:09/19/2024 08:10:44 PM Interpretation: Performing Lab:[facility], [address] [place] [phone] Notes/Report: Bilirubin Total 0.5 0.0-1.0 mg/dL N Bilirubin Direct 0.2 0.0-0.5 mg/dL N Aspartate Amino Transferase 30 5-31 U/L N Alanine Aminotransferase 19 0-31 U/L N Total Protein 6.9 6.5-8.0 g/dL N Albumin Level 4.3 3.5-5.0 g/dL N Alkaline Phosphatase 82 39-117 U/L N Complete Blood Count Auto Di ff Reviewed date:10/20/2024 09:57:22 PM Interpretation: Performing Lab:[facility], [address] [place] [phone] Notes/Report: White Blood Count 5.2 4.8-10.8 X10*3/uL N Red Blood Count 3.79 4.20-5.50 X10*6/uL L Hemoglobin 13.1 12.0-16.0 g/dl N Hematocrit 38.7 37.0-47.0 % N Mean Corpuscular Volume 102.1 80.0-98.0 fL H Mean Corpuscular Hemoglobin 34.6 27.0-33.0 pg H Mean Corpuscular HGB Conc 33.9 31.0-35.0 g/dl N Red Cell Distribution Width 13.6 11.0-16.0 % N Platelet Count 305 160-400 X10*3/uL N Mean Platelet Volume 10.4 9.4-12.3 fL N Neutrophils Percent Auto 66.1 45-73 % N Imm Gran Pct Auto 0.4 0.0-0.4 % N Lymphocytes Percent Auto 17.2 20-40 % L Monocytes Percent Auto 9.5 2-11 % N Eosinophils Percent Auto 5.8 0-4 % H Basophils Percent Auto 1.0 0-2 % N NRBC Pct Auto 0.0 0.0-0.2 /100WBC N Neutrophils Absolute Auto 3.4 2.0-8.3 x10*3/uL N Imm Gran Abs Auto 0.02 0.00-0.03 X10*3/uL N Lymphocytes Absolute Auto 0.9 1.2-4.9 X10*3/uL L Monocytes Absolute Auto 0.5 0.1-1.2 X10*3/uL N Eosinophils Absolute Auto 0.3 0.0-0.4 X10*3/uL N Basophils Absolute Auto 0.1 0.0-0.2 X10*3/uL N NRBC Abs Auto 0.000 0.0-0.012 X10*3/uL N Liver Panel Reviewed date:10/20/2024 09:09:23 AM Interpretation: Performing Lab:[address] [phone] Notes/Report: Bilirubin Total 0.4 0.0-1.0 mg/dL N Bilirubin Direct 0.2 0.0-0.5 mg/dL N Aspartate Amino Transferase 24 5-31 U/L N Alanine Aminotransferase 21 0-31 U/L N Total Protein 7.0 6.5-8.0 g/dL N Albumin Level 4.2 3.5-5.0 g/dL N Alkaline Phosphatase 78 39-117 U/L N Complete Blood Count Auto Di ff Reviewed date:11/21/2024 11:37:43 PM Interpretation: Performing Lab:[address] [phone] Notes/Report: White Blood Count 8.7 4.8-10.8 X10*3/uL N Red Blood Count 3.41 4.20-5.50 X10*6/uL L Hemoglobin 11.2 12.0-16.0 g/dl L Hematocrit 35.3 37.0-47.0 % L Mean Corpuscular Volume 103.5 80.0-98.0 fL H Mean Corpuscular Hemoglobin 32.8 27.0-33.0 pg N Mean Corpuscular HGB Conc 31.7 31.0-35.0 g/dl N Red Cell Distribution Width 15.4 11.0-16.0 % N Platelet Count 452 160-400 X10*3/uL H Mean Platelet Volume 9.2 9.4-12.3 fL L Neutrophils Percent Auto 74.6 45-73 % H Imm Gran Pct Auto 0.6 0.0-0.4 % H Lymphocytes Percent Auto 15.3 20-40 % L Monocytes Percent Auto 6.0 2-11 % N Eosinophils Percent Auto 2.3 0-4 % N Basophils Percent Auto 1.2 0-2 % N NRBC Pct Auto 0.0 0.0-0.2 /100WBC N Neutrophils Absolute Auto 6.5 2.0-8.3 x10*3/uL N Imm Gran Abs Auto 0.05 0.00-0.03 X10*3/uL H Lymphocytes Absolute Auto 1.3 1.2-4.9 X10*3/uL N Monocytes Absolute Auto 0.5 0.1-1.2 X10*3/uL N Eosinophils Absolute Auto 0.2 0.0-0.4 X10*3/uL N Basophils Absolute Auto 0.1 0.0-0.2 X10*3/uL N NRBC Abs Auto 0.000 0.0-0.012 X10*3/uL N Liver Panel Reviewed date:11/21/2024 11:37:10 PM Interpretation: Performing Lab:[facility], [address] [place] [phone] Notes/Report: Bilirubin Total 0.3 0.0-1.0 mg/dL N Bilirubin Direct 0.1 0.0-0.5 mg/dL N Aspartate Amino Transferase 18 5-31 U/L N Alanine Aminotransferase 8 0-31 U/L N Total Protein 7.1 6.5-8.0 g/dL N Albumin Level 3.6 3.5-5.0 g/dL N Alkaline Phosphatase 108 39-117 U/L N Complete Blood Count Auto Di ff Reviewed date:12/25/2024 07:52:26 PM Interpretation: Performing Lab:[address] [phone] Notes/Report: White Blood Count 5.3 4.8-10.8 X10*3/uL N Red Blood Count 3.04 4.20-5.50 X10*6/uL L Hemoglobin 10.5 12.0-16.0 g/dl L Hematocrit 31.1 37.0-47.0 % L Mean Corpuscular Volume 102.3 80.0-98.0 fL H Mean Corpuscular Hemoglobin 34.5 27.0-33.0 pg H Mean Corpuscular HGB Conc 33.8 31.0-35.0 g/dl N Red Cell Distribution Width 18.4 11.0-16.0 % H Platelet Count 370 160-400 X10*3/uL N Mean Platelet Volume 9.4 9.4-12.3 fL N Neutrophils Percent Auto 67.7 45-73 % N Imm Gran Pct Auto 0.4 0.0-0.4 % N Lymphocytes Percent Auto 20.0 20-40 % N Monocytes Percent Auto 6.2 2-11 % N Eosinophils Percent Auto 4.2 0-4 % H Basophils Percent Auto 1.5 0-2 % N NRBC Pct Auto 0.4 0.0-0.2 /100WBC H Neutrophils Absolute Auto 3.6 2.0-8.3 x10*3/uL N Imm Gran Abs Auto 0.02 0.00-0.03 X10*3/uL N Lymphocytes Absolute Auto 1.1 1.2-4.9 X10*3/uL L Monocytes Absolute Auto 0.3 0.1-1.2 X10*3/uL N Eosinophils Absolute Auto 0.2 0.0-0.4 X10*3/uL N Basophils Absolute Auto 0.1 0.0-0.2 X10*3/uL N NRBC Abs Auto 0.020 0.0-0.012 X10*3/uL H Liver Panel Reviewed date:12/25/2024 07:51:21 PM Interpretation: Performing Lab:[facility], [address] [place] [phone] Notes/Report: Bilirubin Total 0.5 0.0-1.0 mg/dL N Bilirubin Direct 0.2 0.0-0.5 mg/dL N Aspartate Amino Transferase 22 5-31 U/L N Alanine Aminotransferase 13 0-31 U/L N Total Protein 6.8 6.5-8.0 g/dL N Albumin Level 4.0 3.5-5.0 g/dL N Alkaline Phosphatase 87 39-117 U/L N Complete Blood Count Auto Di ff Reviewed date:01/23/2025 11:02:15 PM Interpretation: Performing Lab:[facility], [address] [place] [address] Notes/Report: White Blood Count 4.5 4.8-10.8 X10*3/uL L Red Blood Count 3.13 4.20-5.50 X10*6/uL L Hemoglobin 11.1 12.0-16.0 g/dl L Hematocrit 34.2 37.0-47.0 % L Mean Corpuscular Volume 109.3 80.0-98.0 fL H Mean Corpuscular Hemoglobin 35.5 27.0-33.0 pg H Mean Corpuscular HGB Conc 32.5 31.0-35.0 g/dl N Red Cell Distribution Width 17.9 11.0-16.0 % H Platelet Count 305 160-400 X10*3/uL N Mean Platelet Volume 9.9 9.4-12.3 fL N Neutrophils Percent Auto 58.1 45-73 % N Imm Gran Pct Auto 0.4 0.0-0.4 % N Lymphocytes Percent Auto 25.0 20-40 % N Monocytes Percent Auto 9.8 2-11 % N Eosinophils Percent Auto 4.9 0-4 % H Basophils Percent Auto 1.8 0-2 % N NRBC Pct Auto 0.0 0.0-0.2 /100WBC N Neutrophils Absolute Auto 2.6 2.0-8.3 x10*3/uL N Imm Gran Abs Auto 0.02 0.00-0.03 X10*3/uL N Lymphocytes Absolute Auto 1.1 1.2-4.9 X10*3/uL L Monocytes Absolute Auto 0.4 0.1-1.2 X10*3/uL N Eosinophils Absolute Auto 0.2 0.0-0.4 X10*3/uL N Basophils Absolute Auto 0.1 0.0-0.2 X10*3/uL N NRBC Abs Auto 0.000 0.0-0.012 X10*3/uL N Liver Panel Reviewed date:01/23/2025 11:00:07 PM Interpretation: Performing Lab:[facility], [address] [place] [phone] Notes/Report: Bilirubin Total 0.4 0.0-1.0 mg/dL N Bilirubin Direct 0.2 0.0-0.5 mg/dL N Aspartate Amino Transferase 25 5-31 U/L N Alanine Aminotransferase 15 0-31 U/L N Total Protein 6.7 6.5-8.0 g/dL N Albumin Level 4.0 3.5-5.0 g/dL N Alkaline Phosphatase 94 39-117 U/L N Complete Blood Count Auto Di ff (Not yet reviewed by provider) Interpretation: Performing Lab:[facility], [address] [place] [phone] Notes/Report: White Blood Count 4.8 4.8-10.8 X10*3/uL N Red Blood Count 3.36 4.20-5.50 X10*6/uL L Hemoglobin 12.2 12.0-16.0 g/dl N Hematocrit 36.8 37.0-47.0 % L Mean Corpuscular Volume 109.5 80.0-98.0 fL H Mean Corpuscular Hemoglobin 36.3 27.0-33.0 pg H Mean Corpuscular HGB Conc 33.2 31.0-35.0 g/dl N Red Cell Distribution Width 14.6 11.0-16.0 % N Platelet Count 288 160-400 X10*3/uL N Mean Platelet Volume 9.9 9.4-12.3 fL N Neutrophils Percent Auto 56.2 45-73 % N Imm Gran Pct Auto 0.2 0.0-0.4 % N Lymphocytes Percent Auto 26.4 20-40 % N Monocytes Percent Auto 8.9 2-11 % N Eosinophils Percent Auto 6.6 0-4 % H Basophils Percent Auto 1.7 0-2 % N NRBC Pct Auto 0.0 0.0-0.2 /100WBC N Neutrophils Absolute Auto 2.7 2.0-8.3 x10*3/uL N Imm Gran Abs Auto 0.01 0.00-0.03 X10*3/uL N Lymphocytes Absolute Auto 1.3 1.2-4.9 X10*3/uL N Monocytes Absolute Auto 0.4 0.1-1.2 X10*3/uL N Eosinophils Absolute Auto 0.3 0.0-0.4 X10*3/uL N Basophils Absolute Auto 0.1 0.0-0.2 X10*3/uL N NRBC Abs Auto 0.000 0.0-0.012 X10*3/uL N Liver Panel (Not yet reviewe d by provider) Interpretation: Performing Lab:[facility], [address] [place] [phone] Notes/Report: Bilirubin Total 0.5 0.0-1.0 mg/dL N Bilirubin Direct 0.2 0.0-0.5 mg/dL N Aspartate Amino Transferase 27 5-31 U/L N Alanine Aminotransferase 18 0-31 U/L N Total Protein 7.0 6.5-8.0 g/dL N Albumin Level 4.4 3.5-5.0 g/dL N Alkaline Phosphatase 84 39-117 U/L N Reason For Referral No Information Medications Medication SIG (Take, Route, Frequency, Duration) Notes Start Date End Date Status Omeprazole 20 MG Capsule Delayed Release TAKE 1 CAPSULE BY MOUTH EVERY DAY; Duration: 90 Active azaTHIOprine 50 MG Tablet TAKE 2 TABLETS BY MOUTH EVERY DAY; Duration: 90 Active Raloxifene HCl Unkno wn Raloxifene HCl 60 MG Tablet TAKE 1 TABLET BY MOUTH EVERY DAY Oral; Duration: 90 Days Active Dicyclomine HCl 10 MG Capsule 1 or 2 capsules every 6 hours if needed for abdominal cramps/discomfort Orally Every 6 hours if needed; Duration: 90 days Active Omeprazole 20 MG Delayed Release Capsule take 1 capsule by mouth once daily Orally Once a day Active Vitamin D3 50 MCG (2000 UT) Capsule TAKE 1 CAPSULE BY MOUTH EVERY DAY Oral; Duration: 90 Days Active traMADol HCl 50mg Tablet 1 tablet as needed Orally every 8 hours prn Active Multaq 400 MG Tablet Oral; Duration: 90 Days Active Pentasa 500 MG Capsule Extended Release TAKE 2 CAPSULES BY MOUTH 4 TIMES A DAY 90 DAYS; Duration: 90 Brand Name Only , Active Cyanocobalamin 1000 MCG/ML Solution INJECT 1ML EVERY 4 WEEKS Injection; Duration: 84 Active Cholestyramine 4 GM/DOSE Powder use anywhere from 1/4 to 1 scoop Orally Once or twice a day a needed for diarrhea; Duration: 30 days Active Multaq 400 MG Tablet TAKE 1 TABLET BY MOUTH TWICE DAILY Oral; Duration: 30 Days Not-Taking/PRN Vitamin B-6 100 MG Tablet 1 tablet Orally twice a day; Duration: 30 days Active Vitamin C 1000 MG Tablet TAKE 1 TABLET BY MOUTH EVERY DAY Oral; Duration: 90 Days Active Eliquis 5 MG Tablet Oral; Duration: 90 Days Active busPIRone HCl 10 MG Tablet 1 tablet Orally once a day Active Methenamine Hippurate 1 GM Tablet TAKE 1 TABLET BY MOUTH EVERY DAY Oral; Duration: 90 Days Active Immunizations Vaccine Route Administration Date Status Comme nts Influenza Unknown 02/01/2018 Administered Influenza Unknown 01/30/2019 Administered Influenza Unknown 01/31/2020 Administered Influenza Unknown 03/01/2021 Administered Influenza Unknown 04/18/2022 Administered Influenza Unknown 03/10/2023 Administered Influenza Unknown 04/11/2024 Administered Pneumococcal Unknown 03/01/2023 Administered Social History [...] 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; 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; [...] Status Risk Notes Problem Colon cancer screening (195900945) Colon cancer screening (Z12.11) Active confirmed Problem Gastro-esophageal reflux disease without esophagitis (801738656) Gastro-esophageal reflux disease without esophagitis (K21.9) Active confirmed Problem Screening for malignant neoplasm of colon (680858864) Encounter for screening for malignant neoplasm of colon (Z12.11) Active confirmed Problem History of adenomatous polyp of colon (955637244) History of adenomatous polyp of colon (Z86.010) Active confirmed Problem Weight loss (836198777) Weight loss (R63.4) Active confirmed Problem Crohn's disease of small AND large intestines (51153151) Crohn's disease of both small and large intestine without complication (K50.80) Active confirmed Problem Crohn's disease of small AND large intestines (77438754) Crohn's disease of both small and large intestine without complications (K50.80) Active confirmed Problem Diverticular disease of colon (992625630) Diverticulosis of large intestine without perforation or abscess without bleeding (K57.30) Active confirmed Problem Irritable bowel syndrome with diarrhea (580208493) Irritable bowel syndrome with diarrhea (K58.0) Active confirmed Problem Melena (5401910) Melena (K92.1) Active confirme d Problem Therapeutic drug monitoring, quantitative (regime/therapy) (46905785) Encounter for therapeutic drug level monitoring (Z51.81) Active confirmed Problem History of gastrointestinal tract bypass (173697089) Intestinal bypass and anastomosis status (Z98.0) Active confirmed Problem Crohn's disease of small AND large intestines (94662959) Crohns disease of both small and large intestine without complication (K50.80) Active confirmed Problem History of polyp of colon (situation) (073236521) History of colon polyps (Z86.010) Active confirmed Problem Gallstones (962838798) Gallstones (K80.20) Active confirmed Problem Gastroesophageal reflux disease (545183920) GERD (gastroesophageal reflux disease) (K21.9) Active confirmed Problem Generalized abdominal pain (156149480) Abdominal pain, generalized (R10.84) Active confirmed Problem Diarrhea (28670379) Diarrhea, unspecified type (R19.7) Active confirmed Problem Drug monitoring done (454718829) Therapeutic drug monitoring (Z51.81) Active confirmed Problem Crohn's disease of small AND large intestines (96703173) Crohn''s disease of both small and large intestine without complication (K50.80) Active confirmed Problem 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 Vital Signs Temperature 96 degrees Fahrenheit 04/11/2025 Blood pressure diastolic 01 mm Hg 04/11/2025 Height 65 in 04/11/2025 Blood pressure systolic 001 mm Hg 04/11/2025 Weight 123.2 lbs 04/11/2025 BMI 20.5 kg/m2 04/11/2025 Encounters Encounter Location Date Provider Diagnosis [facility] [address] [place] [phone] 04/11/2025 Neymar Sauer Crohns disease of elkin th small and large intestine without complication K50.80 ; Gastro-esophageal reflux disease without esophagitis K21.9 ; History of adenomatous polyp of colon Z86.010 and Colon cancer screening Z12.11 [facility] [address] [place] [phone] 09/27/2024 Neymar Sauer Crohns disease of elkin th small and large intestine without complication K50.80 ; Gastro-esophageal reflux disease without esophagitis K21.9 ; History of adenomatous polyp of colon Z86.010 ; Diarrhea, unspecified type R19.7 and Bile salt-induced diarrhea K90.89 [facility] [address] [place] [phone] 10/28/2024 Neymar Sauer [facility] [address] [place] [phone] 01/09/2025 Neymar Sauer [facility] [address] [place] [phone] 01/11/2025 [facility] [facility] [address] [place] [address] 03/10/2025 Neymar Sauer Assessments Encounter Date Diagnosis [...] keep you advised of her progress. 04/11/2025 Crohns disease of both small and [...] Test Name Order Date LIVER PROFILE 04/11/2025 LIVER PROFILE 06/02/2018 LIVER PROFILE 06/04/2021 LIVER PROFILE 03/03/2012 LIVER PROFILE 01/03/2014 LIVER PROFILE 07/18/2016 LIVER PROFILE 06/29/2017 LIVER PROFILE 10/26/2018 LIVER PROFILE 07/30/2020 LIVER PROFILE 08/08/2021 LIVER PROFILE 02/22/2024 LIVER PROFILE 12/22/2022 CRP 03/04/2022 CRP 02/28/2021 CBC w DIFF 06/04/2021 CBC w DIFF 04/11/2025 CBC w DIFF 06/02/2018 CBC w DIFF 03/04/2022 CBC w DIFF 12/22/2022 CBC w DIFF 08/08/2021 CBC w DIFF 06/23/2019 CBC w DIFF 07/30/2020 CBC w DIFF 10/26/2018 CBC w DIFF 06/29/2017 CBC w DIFF 07/31/2014 CBC w DIFF 07/18/2016 CBC w DIFF 01/03/2014 CBC w DIFF 03/03/2012 CBC w DIFF 02/22/2024 SED RATE (ESR) 03/04/2022 SED RATE (ESR) 02/28/2021 STOOL WBC 03/04/2022 STOOL WBC 09/17/2023 C DIFFICILE RFLX PCR 09/17/2023 C DIFFICILE RFLX PCR 03/04/2022 C DIFFICILE RFLX PCR 02/28/2021 Complete Blood Count Auto Diff Liver Panel 02/20/2025 Calprotectin, Fecal 09/17/2023 GI PANEL 09/17/2023 Future Test Test Name Order Date COLONOSCOPY 02/02/2013 COLONOSCOPY 06/02/2018 UPPER GI ENDOSCOPY 02/21/2020 UPPER GI ENDOSCOPY 09/17/2023 COLONOSCOPY 09/17/2023 Next Appt Details Provider Name:Neymar Sauer , 10/10/2025 09:50:00 AM, [address] [place] [address], [address], [place], [address], Insurance Providers Payer Name Payer Address Payer Phone Subscriber Number Group Number Insured Name Patient Relationship to Insured Coverage Start Date Coverage End Date MEDICARE OF [place] [address] [facility] [place] [address] [id number] VIVIAN BUNN Self - patient is the insured 9 MEDEX ATTN CLAIMS [address] [place] [address] [id number] VIVIAN BUNN Self - patient is the insured Medical (General) History Medical History History ICD Code Crohn's disease of SI and co sea-diagnosed in the early 1979's and had a right ileocolectomy with Dr. Lima in approx. 1989- colonoscopy in 06/2010 with mild ileocolitis and a single tubular adenoma- no dysplasia She does describe that she d eveloped some abdominal discomfort and hematuria over the summer of 2010, for which she underwent a CAT scan and evaluation by Dr. Fereman from urology. The CAT scan was negative for any kidney stones but did show a tiny stone in the gallbladder she had a bone density study in November which was normal in regard to the lumbar spine, but did show some osteopenia in the area of the femoral neck Denies [place],DM,CVA,Lung disease,renal dise ase Anxiety GERD- EGD in 04/2007 was neg . except a small HH-bx. neg for celiac disease and neg. for H.pylori Colonoscopy 06/2013- no activ e colitis- bx neg for dysplasia- tubular adenoma removed in 2010 Colonoscopy in 07/2018-normal colon and colonic biopsies were neg. for dysplasia- there was some minmal ileitis, but the majority of the ileum that was visualized appeared normal EGD-02/29/2020- minimal HH, n o esophagitis/no Vinson's, mild gastritis-bx neg for H.pylori Urinary incontinence-sees Dr. Mcfarlane Kidney stones 03/2022 with Hydronephrosi s- s/p ESWL and cysto Upper endoscopy in [...] dysplasia as well. Hospitalized in October 2024 wi th urosepsis from a kidney stone that required a stent placement and lithotripsy with Dr. Mcfarlane. Atrial fibrillation developed during her above hospitalization for urosepsis Had C. difficile while she w as in the hospital during the above illness and treated with vancomycin Surgical History Surgery Date(Month/Year) Crohn's disease in 1989 with right ileoc olectomy with Dr. Lima Benign breast biopsy BTL Cyst behind right ear removed November 2012 Removed basal call carcinoma from faith Dec 2012 Lap [facility]-Dr. Leahy 04/17/2015 Squamous cell cancer on scalp and forehe 2017 She is scheduled for a hyste roscopy and D&C with Dr. Carcamo for 03/14/2022 D&C polyp in uterus benign 2021 Ganglion cyst on wrist removed 12/2022 Hospitalization History Reason Date(Month/Year) Sepsis from kidney stone, Stent put in
--- NOTE | 2025-04-21 08:21 | AM.OFFVISNUR ---
Intake Visit Reasons: B12 Shot Allergies Darvon Allergy (Intermediate, Verified 04/07/25 15:21) oral swelling Doxycycline Hyclate Allergy (Intermediate, Verified 04/07/25 15:21) diarrhea, severe diarrhea tetracycline (TETRACYCLINE) Allergy (Intermediate, Verified 04/07/25 15:21) Itching Office Meds cyanocobalamin (vitamin B-12) 1,000 mcg/mL injection solution Performing Provider: Tae Duarte MD [facility] [place] Administered by: Elvi Almonte LPN on 04/21/25 08:21 Dose Route Admin Location Dispensed Lot Number Expiration Date [facility] [employer] 1,000 mcg IM left deltoid 1 mL [id number] 04/30/26 49207-216-58 [employer] Total Dispensed Waste 1 mL 0 % Assessment & Plan Assessment & Plan Orders: Orders AMB Vitamin B12 Injection Patient Supplied Today E53.8 - Deficiency of other specified B group vitamins Coding
== END 2025-04-21 08:24 | disposition home or self-care (01) ==
LOC: HO.HMCH 08:14
PROVIDERS: PCP Internal Medicine; Visit Provider Internal Medicine
DX: E53.8 Deficiency of other specified B group vitamins (principal)

== ENCOUNTER 2025-05-19 08:12 | Outpatient (REF) | payer MEDICARE, SELFPAY ==
[2025-05-19 08:57] LABS: MANUAL DIFF FLAG NO
[2025-05-19 09:36] LABS: Hematocrit 37.4 % (37.0-47.0); Hemoglobin 12.3 g/dl (12.0-16.0); Imm Gran Abs Auto 0.02 X10*3/uL (0.00-0.03); Imm Gran Pct Auto 0.4 % (0.0-0.4); Lymphocytes Absolute Auto 0.9 X10*3/uL (1.2-4.9); Mean Corpuscular HGB Conc 32.9 g/dl (31.0-35.0); Mean Corpuscular Hemoglobin 35.9 pg (27.0-33.0); Mean Corpuscular Volume 109.0 fL (80.0-98.0); NRBC Abs Auto 0.000 X10*3/uL (0.0-0.012); NRBC Pct Auto 0.0 /100WBC (0.0-0.2); Platelet Count 355 X10*3/uL (160-400); Red Blood Count 3.43 X10*6/uL (4.20-5.50); White Blood Count 5.0 X10*3/uL (4.8-10.8)
[2025-05-19 10:01] LABS: Appearance Urine Clear; Glucose Urine UA Negative (Negative); PH 5.5 (5.0-9.0); Specific Gravity - Urine <= 1.005 (1.005-1.025); UMIC TRIGGER UACC YES
[2025-05-19 10:09] LABS: Alanine Aminotransferase 15 U/L (0-31); Albumin Level 4.2 g/dL (3.5-5.0); Alkaline Phosphatase 104 U/L (39-117); Aspartate Amino Transferase 21 U/L (5-31); Total Protein 6.7 g/dL (6.5-8.0)
== END 2025-05-19 08:13 | disposition home or self-care (01) ==
LOC: HO.LAB 08:12
PROVIDERS: Internal Medicine; PCP Internal Medicine; Visit Provider Internal Medicine
DX: K50.80 Crohn's disease of both small and large intestine without complications (principal)
CPT/HCPCS: 36415; 80076; 81001; 81003; 85025; 96372; J3420

== ENCOUNTER 2025-05-19 08:12 | Outpatient (AMB) | payer MEDICARE, SELFPAY ==
--- OUTSIDE RECORDS SUMMARY | 2025-03-21 05:20 | XMS_ITS ---
Author Organization [facility] Address [address] [place] [address] Care Team Providers Care Service Advocate Contact Name Role Phone Tae Duarte MD Primary Care Provider Neymar Sanders [phone] REASON FOR VISIT gerd Encounters Encounter Location Date Provider Diagnosis [facility] [address] [place] [phone] 03/21/2025 Neymar Sauer Plan Of Treatment Next Appt Details Provider Name:Neymar Sauer , 10/10/2025 09:50:00 AM, [address], [address], [place], [address], Progress Notes * EBEN BUNN ADOB:01/1955 (70 yo F)Acc No.[id number]:03/21/2025 Progress Notes Patient: Mel HEARDYoung EBEN Petty [...] [address] adame/Dexter/Efrenitting on: 1 07/20/2024 08:16 AM EST
--- OUTSIDE RECORDS SUMMARY | 2025-05-19 08:17 | XMS_ITS | Patient Health Record ---
Author Organization [facility] Address [address] [place] [address] Care Team Providers Care Coater Smoking Pipe Name Role Phone Po Tae FERRER Primary Care Provider Neymar Sanders [phone] Allergies Allergen (clinical drug ingredient) Drug/Non Drug Allergy documented on EMR Reaction Allergy Type Onset Date Status Darvon Unknown Drug Allergy Active tetracycline Tetracycline HCl Unknown Drug Allergy Active Results Component Value Reference Range Flag Notes Liver Panel (Not yet reviewe d by provider) Interpretation: Performing Lab:[address] [phone] Notes/Report: Bilirubin Direct 0.2 0.0-0.5 mg/dL N Complete Blood Count Auto Di ff Reviewed date:11/21/2024 11:37:43 PM Interpretation: Performing Lab:[facility], [address] [place] [phone] Notes/Report: White Blood Count 8.7 4.8-10.8 X10*3/uL [...] Panel Reviewed date:11/21/2024 11:37:10 PM Interpretation: Performing Lab:[address] [address] Notes/Report: Bilirubin Total 0.3 0.0-1.0 mg/dL N Bilirubin Direct 0.1 0.0-0.5 mg/dL N Aspartate Amino Transferase 18 5-31 U/L N Alanine Aminotransferase 8 0-31 U/L N Total Protein 7.1 6.5-8.0 g/dL N Albumin Level 3.6 3.5-5.0 g/dL N Alkaline Phosphatase 108 39-117 U/L N Complete Blood Count Auto Di ff (Not yet reviewed by provider) Interpretation: Performing Lab:[address] [phone] Notes/Report: White Blood Count 4.8 4.8-10.8 X10*3/uL [...] yet reviewe d by provider) Interpretation: Performing Lab:[facility], [address] [place] [phone] Notes/Report: Bilirubin Total 0.5 0.0-1.0 mg/dL N Bilirubin Direct 0.2 0.0-0.5 mg/dL N Aspartate Amino Transferase 27 5-31 U/L N Alanine Aminotransferase 18 0-31 U/L N Total Protein 7.0 6.5-8.0 g/dL N Albumin Level 4.4 3.5-5.0 g/dL N Alkaline Phosphatase 84 39-117 U/L N Complete Blood Count Auto Di ff Reviewed date:05/20/2024 04:02:01 PM Interpretation: Performing Lab:[facility], [address] [place] [phone] Notes/Report: White Blood Count 4.9 4.8-10.8 X10*3/uL [...] Panel Reviewed date:05/20/2024 04:02:33 PM Interpretation: Performing Lab:[facility], [address] [place] [phone] Notes/Report: Bilirubin Total 0.4 0.0-1.0 mg/dL N Bilirubin Direct 0.1 0.0-0.5 mg/dL N Aspartate Amino Transferase 29 5-31 U/L N Alanine Aminotransferase 19 0-31 U/L N Total Protein 7.0 6.5-8.0 g/dL N Albumin Level 4.1 3.5-5.0 g/dL N Alkaline Phosphatase 82 39-117 U/L N Complete Blood Count Auto Di ff Reviewed date:09/19/2024 08:11:23 PM Interpretation: Performing Lab:[facility], [address] [place] [phone] Notes/Report: White Blood Count 4.4 4.8-10.8 X10*3/uL [...] Panel Reviewed date:09/19/2024 08:10:44 PM Interpretation: Performing Lab:[facility], [address] [place] [phone] Notes/Report: Bilirubin Total 0.5 0.0-1.0 mg/dL N Bilirubin Direct 0.2 0.0-0.5 mg/dL N Aspartate Amino Transferase 30 5-31 U/L N Alanine Aminotransferase 19 0-31 U/L N Total Protein 6.9 6.5-8.0 g/dL N Albumin Level 4.3 3.5-5.0 g/dL N Alkaline Phosphatase 82 39-117 U/L N Complete Blood Count Auto Di ff Reviewed date:01/23/2025 11:02:15 PM Interpretation: Performing Lab:[facility], [address] [place] [phone] Notes/Report: White Blood Count 4.5 4.8-10.8 X10*3/uL [...] Panel Reviewed date:01/23/2025 11:00:07 PM Interpretation: Performing Lab:[facility], [address] [place] [phone] Notes/Report: Bilirubin Total 0.4 0.0-1.0 mg/dL N Bilirubin Direct 0.2 0.0-0.5 mg/dL N Aspartate Amino Transferase 25 5-31 U/L N Alanine Aminotransferase 15 0-31 U/L N Total Protein 6.7 6.5-8.0 g/dL N Albumin Level 4.0 3.5-5.0 g/dL N Alkaline Phosphatase 94 39-117 U/L N Thyroid Stimulating Hormone Reviewed date:07/26/2024 06:49:57 PM Interpretation: Performing Lab:[facility], [address] [place] [phone] Notes/Report: Thyroid Stimulating Hormone 1.50 0.32-4.0 uIU/mL N TSH 3rd Generation ([employer]) Complete Blood Count Auto Di ff Reviewed date:10/20/2024 09:57:22 PM Interpretation: Performing Lab:[facility], [address] [place] [phone] Notes/Report: White Blood Count 5.2 4.8-10.8 X10*3/uL [...] Panel Reviewed date:10/20/2024 09:09:23 AM Interpretation: Performing Lab:[address] [phone] Notes/Report: Bilirubin Total 0.4 0.0-1.0 mg/dL N Bilirubin Direct 0.2 0.0-0.5 mg/dL N Aspartate Amino Transferase 24 5-31 U/L N Alanine Aminotransferase 21 0-31 U/L N Total Protein 7.0 6.5-8.0 g/dL N Albumin Level 4.2 3.5-5.0 g/dL N Alkaline Phosphatase 78 39-117 U/L N Complete Blood Count Auto Di ff Reviewed date:12/25/2024 07:52:26 PM Interpretation: Performing Lab:[address] [phone] Notes/Report: White Blood Count 5.3 4.8-10.8 X10*3/uL [...] Panel Reviewed date:12/25/2024 07:51:21 PM Interpretation: Performing Lab:[facility], [address] [place] [phone] Notes/Report: Bilirubin Total 0.5 0.0-1.0 mg/dL N Bilirubin Direct 0.2 0.0-0.5 mg/dL N Aspartate Amino Transferase 22 5-31 U/L N Alanine Aminotransferase 13 0-31 U/L N Total Protein 6.8 6.5-8.0 g/dL N Albumin Level 4.0 3.5-5.0 g/dL N Alkaline Phosphatase 87 39-117 U/L N Complete Blood Count Auto Di ff Reviewed date:06/21/2024 10:33:11 AM Interpretation: Performing Lab:[facility], [address] [place] [phone] Notes/Report: White Blood Count 4.2 4.8-10.8 X10*3/uL [...] Panel Reviewed date:06/21/2024 10:33:28 AM Interpretation: Performing Lab:[facility], [address] [place] [phone] Notes/Report: Bilirubin Total 0.4 0.0-1.0 mg/dL N Bilirubin Direct 0.1 0.0-0.5 mg/dL N Aspartate Amino Transferase 24 5-31 U/L N Alanine Aminotransferase 24 0-31 U/L N Total Protein 7.3 6.5-8.0 g/dL N Albumin Level 4.2 3.5-5.0 g/dL N Alkaline Phosphatase 87 39-117 U/L N Complete Blood Count Auto Di ff Reviewed date:07/22/2024 05:28:16 PM Interpretation: Performing Lab:[facility], [address] [place] [phone] Notes/Report: White Blood Count 5.1 4.8-10.8 X10*3/uL [...] Panel Reviewed date:07/26/2024 06:49:01 PM Interpretation: Performing Lab:[facility], [address] [place] [phone] Notes/Report: Sodium 139 135-145 mmol/L N Potassium [...] Panel Reviewed date:07/26/2024 06:49:13 PM Interpretation: Performing Lab:[facility], [address] [place] [phone] Notes/Report: Bilirubin Direct 0.2 0.0-0.5 mg/dL N IRON PROFILE Reviewed date:07/26/2024 06:49:29 PM Interpretation: Performing Lab:[facility], [address] [place] [phone] Notes/Report: Iron 94 30-160 mcg/dL N Total Iron Binding Capacity 257 228-428 mcg/dL N Percent Iron Saturation 37 15-50 % N Unsaturated Iron Binding 163 Lipid Panel Reviewed date:07/26/2024 06:49:37 PM Interpretation: Performing Lab:[facility], [address] [place] [phone] Notes/Report: Triglycerides 72 <150 mg/dL Desirable Triglyceride: [...] low results in patients with liver disease. Reason For Referral No Information Medications Medication [...] Cholestyramine 4 GM/DOSE Powder use anywhere from 4 to 1 scoop Orally Once or twice [...] Status Risk Notes Problem Colon cancer screening (998137714) Colon cancer screening (Z12.11) Active confirmed Problem Gastro-esophageal reflux disease without esophagitis (086051074) Gastro-esophageal reflux disease without esophagitis (K21.9) Active confirmed Problem Screening for malignant neoplasm of colon (481626895) Encounter for screening for malignant neoplasm of colon (Z12.11) Active confirmed Problem History of adenomatous polyp of colon (323282973) History of adenomatous polyp of colon (Z86.010) Active confirmed Problem Weight loss (979196578) Weight loss (R63.4) Active confirmed Problem Crohn's disease of small AND large intestines (52613896) Crohn's disease of both small and large intestine without complication (K50.80) Active confirmed Problem Crohn's disease of small AND large intestines (47708799) Crohn's disease of both small and large intestine without complications (K50.80) Active confirmed Problem Diverticular disease of colon (499085309) Diverticulosis of large intestine without perforation or abscess without bleeding (K57.30) Active confirmed Problem Irritable bowel syndrome with diarrhea (015769936) Irritable bowel syndrome with diarrhea (K58.0) Active confirmed Problem Melena (6693403) Melena (K92.1) Active confirme d Problem Therapeutic drug monitoring, quantitative (regime/therapy) (46317193) Encounter for therapeutic drug level monitoring (Z51.81) Active confirmed Problem History of gastrointestinal tract bypass (308492807) Intestinal bypass and anastomosis status (Z98.0) Active confirmed Problem Crohn's disease of small AND large intestines (77261967) Crohns disease of both small and large intestine without complication (K50.80) Active confirmed Problem History of polyp of colon (situation) (844100381) History of colon polyps (Z86.010) Active confirmed Problem Gallstones (436871313) Gallstones (K80.20) Active confirmed Problem Gastroesophageal reflux disease (888934738) GERD (gastroesophageal reflux disease) (K21.9) Active confirmed Problem Generalized abdominal pain (724310627) Abdominal pain, generalized (R10.84) Active confirmed Problem Diarrhea (11047893) Diarrhea, unspecified type (R19.7) Active confirmed Problem Drug monitoring done (506949275) Therapeutic drug monitoring (Z51.81) Active confirmed Problem Crohn's disease of small AND large intestines (90422668) Crohn''s disease of both small and large intestine without complication (K50.80) Active confirmed Problem 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 Vital Signs Temperature 96 degrees Fahrenheit 04/11/2025 Blood pressure diastolic 01 mm Hg 04/11/2025 Height 65 in 04/11/2025 Blood pressure systolic 001 mm Hg 04/11/2025 Weight 123.2 lbs 04/11/2025 BMI 20.5 kg/m2 04/11/2025 Encounters Encounter Location Date Provider Diagnosis [facility] [address] [place] [phone] 09/27/2024 Neymar Sauer Crohns disease of elkin th small and large intestine without complication K50.80 ; Gastro-esophageal reflux disease without esophagitis K21.9 ; History of adenomatous polyp of colon Z86.010 ; Diarrhea, unspecified type R19.7 and Bile salt-induced diarrhea K90.89 [facility] [address] [place] [phone] 04/11/2025 Neymar Sauer Crohns disease of elkin th small and large intestine without complication K50.80 ; Gastro-esophageal reflux disease without esophagitis K21.9 ; History of adenomatous polyp of colon Z86.010 and Colon cancer screening Z12.11 [facility] [address] [place] [phone] 10/28/2024 Neymar Sauer [facility] [address] [place] [phone] 01/09/2025 Neymar Sauer [facility] [address] [place] [phone] 01/11/2025 Neymar Sauer [facility] [address] [place] [phone] 03/10/2025 Neymar Sauer Assessments Encounter Date Diagnosis (ICD Code) Assessment Notes Treatment Notes Treatment Clinical Notes Section Notes 04/11/2025 Gastro-esophage al reflux disease without esophagitis [...] Test Test Name Order Date LIVER PROFILE 06/02/2018 LIVER PROFILE 06/04/2021 LIVER PROFILE 04/11/2025 LIVER PROFILE 03/03/2012 LIVER PROFILE 01/03/2014 LIVER PROFILE 07/18/2016 LIVER PROFILE 06/29/2017 LIVER PROFILE 10/26/2018 LIVER PROFILE 07/30/2020 LIVER PROFILE 08/08/2021 LIVER PROFILE 02/22/2024 LIVER PROFILE 12/22/2022 CRP 02/28/2021 CRP 03/04/2022 CBC w DIFF 06/04/2021 CBC w DIFF 04/11/2025 CBC w DIFF 03/04/2022 CBC w DIFF 06/02/2018 CBC w DIFF 12/22/2022 CBC w DIFF 08/08/2021 CBC w DIFF 06/23/2019 CBC w DIFF 07/30/2020 CBC w DIFF 10/26/2018 CBC w DIFF 06/29/2017 CBC w DIFF 07/31/2014 CBC w DIFF 07/18/2016 CBC w DIFF 01/03/2014 CBC w DIFF 03/03/2012 CBC w DIFF 02/22/2024 SED RATE (ESR) 02/28/2021 SED RATE (ESR) 03/04/2022 STOOL WBC 09/17/2023 STOOL WBC 03/04/2022 C DIFFICILE RFLX PCR 09/17/2023 C DIFFICILE RFLX PCR 03/04/2022 C DIFFICILE RFLX PCR 02/28/2021 Complete Blood Count Auto Diff Liver Panel 02/20/2025 Liver Panel 04/21/2025 Calprotectin, Fecal 09/17/2023 GI PANEL 09/17/2023 Future Test Test Name Order Date COLONOSCOPY 02/02/2013 COLONOSCOPY 06/02/2018 UPPER GI ENDOSCOPY 02/21/2020 UPPER GI ENDOSCOPY 09/17/2023 COLONOSCOPY 09/17/2023 Next Appt Details Provider Name:Neymar Mckeon Camacho , 10/10/2025 09:50:00 AM, [address] [place] [address], [address], [place], [address], Insurance Providers Payer Name Payer Address Payer Phone Subscriber Number Group Number Insured Name Patient Relationship to Insured Coverage Start Date Coverage End Date MEDICARE OF [place] [address] [place] [address] [id number] SEPIDEH VIVIAN Self - patient is the insured 9 [employer] ATTN CLAIMS [address] [place] [address] [id number] SEPIDEH VIVIAN Self - patient is [...] the area of the femoral neck Denies [place],DM,CVA,Lung disease,renal dise ase Anxiety GERD- EGD in [...] November 2012 Removed basal call carcinoma from [facility]ianism Dec 2012 Lap [facility]-Dr. Leahy 04/17/2015 Squamous cell cancer on scalp and forehe ad 2017 She is scheduled for a hyste roscopy and D&C with Dr. Carcamo for 03/14/2022 D&C polyp in uterus benign 2021 Ganglion cyst on wrist removed 12/2022 Hospitalization History Reason Date(Month/Year) Sepsis from kidney stone, Stent put in
--- OUTSIDE RECORDS SUMMARY | 2025-05-19 08:17 | XMS_ITS ---
Author Name Adonis Monique Address Unknown Organization [facility] Team Providers Care Social Organization Professor Name Role Phone Unavailable Primary Care Physician Unavailab le History Of Present Illness This is a 70 year old female who is an established patient who is being seen for a chief complaint of history of actinic keratoses, located on the arms, face, and hands. The skin lesions are diffuse,hypertrophic, pigmented, and rough. Since the last visit, her condition is: inadequately controlled. She comes in today for PDT. Allergies, Adverse Reactions, Alerts Substance RxNorm Reaction(s) Severity Status Start Da te tetracycline unspecified active Darvon unspecified active Medications Medication Generic Name RxNorm Strength Strength Unit Route Dose Dose Form Frequency Date Started Date Ended Status Indication Sig betamethaso ne dipropionat e betameth asone dipropio sharif 821860 0.05 % Topica l cream AM and PM 06/04/19 21 suspend ed Rash Appl y AM and PM back of neck ches t and arms rash for up to 2 week s betamethaso ne dipropionat e betameth asone dipropio sharif 851995 0.05 % Topica l cream AM and PM 02/16/20 25 active Rash Appl y AM and PM back of neck ches t and arms rash for up to 2 week s clindamycin -benzoyl peroxide clindamy pablo-keith oyl peroxide 0600782 1.2 %(1 % base) -5 % Topica l gel QD 10/30/19 23 suspend ed Appl y PM outb reak s chin clindamycin -benzoyl peroxide clindamy pablo-keith oyl peroxide 0226059 1.2 %(1 % base) -5 % Topica l gel Qd 02/16/20 25 active Appl y PM acne face fluocinonid e fluocino nide 584455 0.05 % Topica l solut ion 06/11/19 23 suspend ed Appl y 5-10 drop s to scal p QD-B ID PRN itch and mass age in fluocinonid e fluocino nide 794892 0.05 % Topica l solut ion 02/16/20 25 active Appl y 5-10 drop s to scal p QD-B ID PRN itch and mass age in cyanocobala min (vitamin B-12) 821364 1,000 mcg/mL Inject ion 1 solut ion Once a month active azathioprin e 808657 50 mg Oral 1 table t QD active indigestion buspirone 158903 10 mg Oral 1 table t QD active Anxiety cholestyram ine (with sugar) 987068 4 gram Oral 1 powde r QD active Crohn s cyclobenzap rine 470501 5 mg Oral table t QD suspend ed dicyclomine dicyclom ine 10 mg Oral 2 capsu le 4x active GERD Eliquis apixaban 5 mg Oral 1 table t BID active metoprolol succinate metoprol ol succinat e 25 mg Oral 1/ Table t, Exten ded Relea se 24 hr qd active Multaq dronedar one 400 mg Oral 1 table t BID active nitrofurant oin nitrofur antoin Oral suspend ed Pentasa 678037 500 mg Oral 1 capsu le, exten ded relea se QD active Crohn s disease pyridoxine (vitamin B6) 929243 100 mg Oral 1 table t QD active raloxifene 2441436 60 mg Oral 1 table t QD active osteo arthritis tramadol 651411 50 mg Oral 1 table t QD active Back pain Vitamin D3 cholecal ciferol (vitamin D3) 10 mcg (400 unit) Oral 1 capsu le QD active Problems Problem Code Type Status Date of Diagnosis Date of Resolution History of clinical finding in subject (situation) 077146978(S NOMED) Problem active Other specified health status Z78.9(ICD-1 0) Diagnosis active 08/31/2018 Neoplasm of uncertain behavior of skin (disorder) 37377224(SN OMED) Diagnosis active 08/31/2018 Senile hyperkeratosis (disorder) 654584581(S NOMED) Diagnosis active 03/30/2018 Melanocytic nevus of trunk (disorder) 296188095(S NOMED) Diagnosis active 02/09/2018 Actinic keratosis (disorder) 631310115(S NOMED) Diagnosis active 01/05/2018 Actinic keratosis (disorder) 620606473(S NOMED) Diagnosis active 11/10/2017 Surgical follow-up (finding) 015250766(S NOMED) Diagnosis active 10/22/2017 Basal cell carcinoma of face (disorder) 894339476(S NOMED) Diagnosis active 10/08/2017 Neoplasm of uncertain behavior of skin (disorder) 78563859(SN OMED) Diagnosis active 09/23/2017 Basal cell carcinoma of face (disorder) 157265668(S NOMED) Diagnosis active 09/22/2017 Neoplasm of uncertain behavior of skin (disorder) 57010470(SN OMED) Diagnosis active 09/01/2017 Other specified health status Z78.9(ICD-1 0) Diagnosis active 06/23/2017 Melanocytic nevus of trunk (disorder) 874561232(S NOMED) Diagnosis active 06/23/2017 Scar conditions and fibrosis of skin (disorder) 384036618(S NOMED) Diagnosis active 02/04/2017 Neoplasm of uncertain behavior of skin (disorder) 77576499(SN OMED) Diagnosis active 11/26/2016 Senile hyperkeratosis (disorder) 017810309(S NOMED) Diagnosis active 05/16/2016 Senile hyperkeratosis (disorder) 093719052(S NOMED) Diagnosis active 11/12/2015 Senile hyperkeratosis (disorder) 145823581(S NOMED) Diagnosis active 05/10/2015 Scar conditions and fibrosis of skin (disorder) 713400502(S NOMED) Diagnosis active 07/05/2014 Basal cell carcinoma of skin of lip (disorder) 298608156(S NOMED) Diagnosis active 06/21/2014 Actinic keratosis (disorder) 904837166(S NOMED) Diagnosis active 05/18/2014 Epidermoid cyst of skin (disorder) 082935956(S NOMED) Diagnosis active 01/16/2014 Hemangioma of skin and subcutaneous tissue D18.01(ICD- [...] of skin D48.5(ICD-1 0) Diagnosis active 03/08/2019 Anxiety disorder (disorder) 055332070(S NOMED) Problem active Arthritis (disorder) 0706430(SNO MED) Problem active Actinic keratosis L57.0(ICD-1 0) Diagnosis active 04/20/2019 [...] 04/02/2020 Actinic keratosis L57.0(ICD-1 0) Diagnosis active 06/04/2020 Neoplasm of uncertain behavior of skin D48.5(ICD-1 0) Diagnosis active 06/04/2020 Other seborrheic keratosis L82.1(ICD-1 0) Diagnosis active 06/04/2020 Dermatitis, unspecified L30.9(ICD-1 0) Diagnosis active 06/04/2020 Neoplasm of uncertain behavior of skin D48.5(ICD-1 0) Diagnosis active 07/18/2020 Actinic keratosis L57.0(ICD-1 0) Diagnosis active 07/18/2020 Other seborrheic keratosis L82.1(ICD-1 0) Diagnosis active 07/18/2020 Corns and callosities L84(ICD-10) Diagnosis active 2020 Actinic keratosis (disorder) (S NOMED) Diagnosis active 04/22/2021 Inflamed seborrheic keratosis (disorder) 374899151(S NOMED) Diagnosis active 04/22/2021 Furuncle (disorder) 078236669(S NOMED) Diagnosis active 04/22/2021 Hemangioma of skin and subcutaneous tissue (disorder) 025286541(S NOMED) Diagnosis active 04/22/2021 Seborrheic keratosis (disorder) 191240066(S NOMED) Diagnosis active 04/22/2021 Disorder of pigmentation (disorder) 541693392(S NOMED) Diagnosis active 04/22/2021 Melanocytic nevus of trunk (disorder) 055255285(S NOMED) Diagnosis active 04/22/2021 Patient encounter status (finding) 151236386(S NOMED) Diagnosis active 04/22/2021 History of malignant neoplasm of skin (situation) 144616606(S NOMED) Diagnosis active 04/22/2021 Actinic keratosis (disorder) (S NOMED) Diagnosis active 06/28/2021 Inflamed seborrheic keratosis (disorder) 705995167(S NOMED) Diagnosis active 06/28/2021 Inflamed seborrheic keratosis (disorder) 917977558(S NOMED) Diagnosis active 08/14/2021 Neoplasm of uncertain behavior of skin (disorder) 91860102(SN OMED) Diagnosis active 08/14/2021 Inflammatory dermatosis (disorder) 491396846(S NOMED) Diagnosis active 08/14/2021 Contusion of right index finger (disorder) 05593946525 820698(SNOM ED) Diagnosis active 08/14/2021 History of malignant neoplasm of skin (situation) 609989842(S NOMED) Diagnosis active 06/11/2022 Hemangioma of skin and subcutaneous tissue (disorder) 088389125(S NOMED) Diagnosis active 06/11/2022 Seborrheic keratosis (disorder) 154890208(S NOMED) Diagnosis active 06/11/2022 Disorder of pigmentation (disorder) 082287127(S NOMED) Diagnosis active 06/11/2022 Melanocytic nevus of trunk (disorder) 649402049(S NOMED) Diagnosis active 06/11/2022 Patient encounter status (finding) 313399862(S NOMED) Diagnosis active 06/11/2022 Disorder of skin (disorder) 85885596(SN OMED) Diagnosis active 06/11/2022 Callosity (disorder) 220317299(S NOMED) Diagnosis active 06/11/2022 Inflammatory dermatosis (disorder) 385491634(S NOMED) Diagnosis active 06/11/2022 Furuncle (disorder) 606126196(S NOMED) Diagnosis active 06/11/2022 Kidney stone (disorder) 87078986(SN OMED) Problem active Acne (disorder) 33010891(SN OMED) Problem active Asteatosis cutis (disorder) 77644000(SN OMED) Problem active Dysplastic nevus of skin (disorder) 860568713(S NOMED) Problem active Disorder of skin (disorder) 90483913(SN OMED) Diagnosis active 08/22/2022 Inflamed seborrheic keratosis (disorder) 876443375(S NOMED) Diagnosis active 08/22/2022 Disorder of skin (disorder) 82896793(SN OMED) Diagnosis active 10/29/2022 Inflamed seborrheic keratosis (disorder) 091365515(S NOMED) Diagnosis active 10/29/2022 Acne vulgaris (disorder) 24786717(SN OMED) Diagnosis active 10/29/2022 Neoplasm of uncertain behavior of skin (disorder) 68086871(SN OMED) Diagnosis active 12/04/2022 Neoplasm of uncertain behavior of skin (disorder) 72775665(SN OMED) Diagnosis active 12/12/2022 Surgical follow-up (finding) 809089817(S NOMED) Diagnosis active 12/12/2022 Seborrheic keratosis (disorder) 339569454(S NOMED) Diagnosis active 01/14/2023 Neoplasm of uncertain behavior of skin (disorder) 00350577(SN OMED) Diagnosis active 01/14/2023 Hemangioma of skin and subcutaneous tissue (disorder) 315495614(S NOMED) Diagnosis active 10/02/2023 Seborrheic keratosis (disorder) 780641709(S NOMED) Diagnosis active 10/02/2023 Actinic keratosis (disorder) (S NOMED) Diagnosis active 10/02/2023 Disorder of pigmentation (disorder) 439547102(S NOMED) Diagnosis active 10/02/2023 Melanocytic nevus of trunk (disorder) 318329900(S NOMED) Diagnosis active 10/02/2023 Tinea pedis (disorder) 7998522(SNO MED) Diagnosis active 10/02/2023 Acne vulgaris (disorder) 87975690(SN OMED) Diagnosis active 10/02/2023 Patient encounter status (finding) 845309268(S NOMED) Diagnosis active 10/02/2023 History of malignant neoplasm of skin (situation) 890124775(S NOMED) Diagnosis active 10/02/2023 Nicotine dependence (disorder) 70536939(SN OMED) Diagnosis active 10/02/2023 Actinic keratosis (disorder) (S NOMED) Diagnosis active 12/09/2023 Tinea pedis (disorder) 1321320(SNO MED) Diagnosis active 12/09/2023 Actinic keratosis (disorder) (S NOMED) Diagnosis active 02/03/2024 Inflammatory dermatosis (disorder) 223982986(S NOMED) Diagnosis active 02/03/2024 Actinic keratosis (disorder) (S NOMED) Diagnosis active 05/04/2024 Nicotine dependence (disorder) 20406268(SN OMED) Diagnosis active 05/04/2024 Inflammatory dermatosis (disorder) 960928981(S NOMED) Diagnosis active 05/04/2024 Follicular cysts of skin and subcutaneous tissue (disorder) 450245241(S NOMED) Diagnosis active 05/04/2024 Actinic keratosis (disorder) (S NOMED) Diagnosis active 06/29/2024 Nicotine dependence (disorder) 19512284(SN OMED) Diagnosis active 06/29/2024 Seborrheic keratosis (disorder) 792466033(S NOMED) Diagnosis active 06/29/2024 Seborrheic keratosis (disorder) 634678748(S NOMED) Diagnosis active 08/17/2024 Crohn's disease (disorder) 12540795(SN OMED) Problem active Diverticulitis (morphologic abnormality) 94322714(SN OMED) Problem active Herniated structure (morphologic abnormality) 584485717(S NOMED) Problem active Actinic keratosis (disorder) (S NOMED) Diagnosis active 02/15/2025 Inflamed seborrheic keratosis (disorder) 082262607(S NOMED) Diagnosis active 02/15/2025 Skin changes due to chronic exposure to non-ionizing radiation (disorder) 342321128(S NOMED) Diagnosis active 02/15/2025 Inflammatory dermatosis (disorder) 726290314(S NOMED) Diagnosis active 02/15/2025 History of malignant neoplasm of skin (situation) 589451062(S NOMED) Diagnosis active 02/15/2025 Acne vulgaris (disorder) 32493469(SN OMED) Diagnosis active 02/15/2025 Hemangioma of skin and subcutaneous tissue (disorder) 633775833(S NOMED) Diagnosis active 02/15/2025 Non-thrombocytopenic purpura (disorder) 592468002(S NOMED) Diagnosis active 02/15/2025 Seborrheic keratosis (disorder) 714469478(S NOMED) Diagnosis active 02/15/2025 Disorder of pigmentation (disorder) 339383147(S NOMED) Diagnosis active 02/15/2025 Melanocytic nevus of trunk (disorder) 990929338(S NOMED) Diagnosis active 02/15/2025 Patient encounter status (finding) 933138573(S NOMED) Diagnosis active 02/15/2025 Basal cell carcinoma of skin (disorder) 810997050(S NOMED) Problem active Squamous cell carcinoma (disorder) 145200749(S NOMED) Problem active Actinic keratosis (disorder) (S NOMED) Diagnosis active 02/27/2025 Actinic keratosis (disorder) (S NOMED) Diagnosis active 04/10/2025 Actinic keratosis (disorder) (S NOMED) Diagnosis active 05/15/2025 Results No data Encounters Service provided at [facility] [address], [address], [place], [place] [id number]. Office phonenumber is [phone]. Office fax number is [phone]. Encounter Diagnosis Location Date / Time Type Disc harge Status Actinic Keratoses (L57.0) [facility] 05/15/2025 15:30:00 UTC NI Reason For Referral No data Procedures Procedure Date Photodynamic therapy of skin (procedure) 05/15/2025 12:00 am UTC Photodynamic therapy of skin (procedure) 04/10/2025 12:00 am UTC Photodynamic therapy of skin (procedure) 02/27/2025 12:00 am UTC Cryotherapy of skin lesion [...] Excision of squamous cell carcinoma (pro cedure) Excision of squamous cell carcinoma (pro cedure) History of appendectomy (situation) History of cholecystectomy (situation) Lithotripsy system probe (physical objec t) Documentation of past medical history (p rocedure) History of cholecystectomy (situation) History of appendectomy (situation) Documentation of past [...] of left breast (procedure) Review Of Systems No Data Assessment 1.Actinic KeratosesPDT: Blue: arm; arm; face; hand; hand; Incubation Time - 1:00:00; Incubation Start Time - 10:40; Who Performed the PDT (Staff) - Kendra Stockton; Incubation End Time - 11:40; Numberof Kerasticks/Tubes Billed For - 1; Treatment Number - 3; Illumination Time - 4:10. Plan of Care Code Detail Instructions 153850 fluocinonide 0.05 % topical solu tion Apply 5-10 drops to scalp QD-BID PRN itch and massage in 3027577 clindamycin 1.2 % (1 % base)-benzoyl peroxide 5 % topical gel Apply PM acne face 317616 betamethasone diprop ionate 0.05 % topical cream Apply AM and PM back of neck chest and arms rash for up to 2 weeks 330346 betamethasone diprop ionate 0.05 % topical cream Apply AM and PM to scaly patches on arms, chest and back for 2 weeks 571205 econazole 1 % topical cream Appl y AM and PM tops sides bottoms of feet and between toes for 4 weeks 5159280 clindamycin 1.2 % (1 % base)-benzoyl peroxide 5 % topical gel Apply PM outbreaks chin 6376577 clindamycin 1.2 % (1 % base)-benzoyl peroxide 5 % topical gel Apply PM outbreaks chin 341658 fluocinonide 0.05 % topical solu tion Apply 5-10 drops to scalp QD-BID PRN itch and massage in 424993 betamethasone diprop ionate 0.05 % topical cream Apply AM and PM back of neck chest and arms rash for up to 2 weeks 478122 fluocinonide 0.05 % topical solu tion Apply 5-10 drops to scalp qd-bid scalp prn itch and bumps when needed 917748 betamethasone diprop ionate 0.05 % topical cream Apply AM and PM back of neck chest and arms rash for up to 2 weeks 858429 fluocinonide 0.05 % topical solu tion Apply 5-10 drops to scalp qd-bid scalp prn itch and bumps when needed 891594 fluocinonide 0.05 % topical solu tion . 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
--- NOTE | 2025-05-19 08:42 | AM.OFFVISNUR ---
Intake Visit Reasons: B12 Allergies Darvon Allergy (Intermediate, Verified 04/07/25 15:21) oral swelling Doxycycline Hyclate Allergy (Intermediate, Verified 04/07/25 15:21) diarrhea, severe diarrhea tetracycline (TETRACYCLINE) Allergy (Intermediate, Verified 04/07/25 15:21) Itching Office Meds cyanocobalamin (vitamin B-12) 1,000 mcg/mL injection solution Performing Provider: Tae Duarte MD [facility] Administered by: Elvi Amlonte LPN on 05/19/25 08:42 Dose Route Admin Location Dispensed Lot Number Expiration Date [facility] Guest Services Agent 1,000 mcg IM left deltoid 1 mL [id number] 04/30/26 37055-084-57 [email or web address] Total Dispensed Waste 1 mL 0 % Assessment & Plan Assessment & Plan Orders: Orders AMB Vitamin B12 Injection Patient Supplied Today E53.8 - Deficiency of other specified B group vitamins Coding
== END 2025-05-19 08:34 | disposition home or self-care (01) ==
LOC: HO.HMCH 08:13
PROVIDERS: PCP Internal Medicine
DX: E53.8 Deficiency of other specified B group vitamins (principal)

== ENCOUNTER 2025-05-30 08:27 | Outpatient (AMB) | payer MEDICARE, SELFPAY ==
--- OUTSIDE RECORDS SUMMARY | 2025-03-21 05:20 | XMS_ITS ---
Author Organization [facility] Address [address] [place] [address] Care Team Providers Care Immunology Teacher Name Role Phone Tae Duarte MD Primary Care Provider Neymar Sanders [phone] REASON FOR VISIT gerd Encounters Encounter Location Date Provider Diagnosis [facility] [address] [place] [phone] 03/21/2025 Neymar Sauer Plan Of Treatment Next Appt Details Provider Name:Neymar Sauer , 10/10/2025 09:50:00 AM, [address], [address], [place], [address], Progress Notes * EBEN BUNN ADOB:01/1955 (70 yo F)Acc No.[id number]:03/21/2025 Progress Notes Patient: Mel HEARDYoung EBEN Petty [...] Pending * Provider: Alpesh Sauer MD Date: [address]/Dexter/Efrenitting on: 1 10:04 AM EST
--- NOTE | 2025-05-30 08:40 | MHC.OFFVIS ---
Vital Signs 05/30/25 08:42 Height 5 ft 5 in Weight 125 lb 10.616 oz BMI 20.9 BP 122/80 Blood Pressure Location Lt brachial Position Sitting Pulse 78 Intake Visit Reasons: 6m follow up Intake Note: 6 month follow-up with ekg has seen EP a few times seeing him again in Jul Magnetic Resonance Imaging Coordinator Required: No Allergies Darvon Allergy (Intermediate, Verified 04/07/25 15:21) oral swelling Doxycycline Hyclate Allergy (Intermediate, Verified 04/07/25 15:21) diarrhea, severe diarrhea tetracycline (TETRACYCLINE) Allergy (Intermediate, Verified 04/07/25 15:21) Itching Medication List - Last Reconciled 05/30/25 by Coleman Arriola MD albuterol sulfate 90 mcg/actuation 1 inh inhalation QID PRN apixaban (Eliquis) 5 mg PO BID ascorbic acid (vitamin C) 1,000 mg PO DAILY 90 days azathioprine 100 mg PO DAILY buspirone 10 mg PO DAILY cyanocobalamin (vitamin B-12) 1,000 mcg IM Q4W 90 days dicyclomine 20 mg PO QID PRN dronedarone (Multaq) 400 mg PO BID mesalamine ER (Pentasa) 1,000 mg PO QID methenamine hippurate 1 g PO DAILY 90 days metoprolol tartrate 12.5 mg (1/2 x 25 mg) PO BID omeprazole 20 mg PO DAILY@0630 pyridoxine (vitamin B6) 100 mg PO DAILY raloxifene 60 mg PO DAILY tramadol 50 mg PO DAILY 90 days HPI Comments Details: Vivian comes for follow-up. Overall she has been doing very well. She has not recurrent long episodes of atrial fibrillation. She said in the last 6 months she had 1 episode that lasted 2 minutes. She denies any other cardiac symptoms. She remains very active and denies any exertional chest pain or shortness of breath. She remains fairly anxious overall. This needs to be treated. She avoids any stimulants. No bleeding issues or neurologic events. Denies any heart failure symptoms. No lightheadedness, syncope. [facility] Medical History (Updated 05/30/25 @ 09:02 by Coleman Arriola MD) Afib Paroxysmal atrial fibrillation Cellulitis and abscess of other specified site Osteoporosis Nicotine dependence, cigarettes, uncomplicated Breast cancer screening by mammogram Lip abscess Palpitations Flank pain Basal cell carcinoma Peptic ulcer disease Renal calculi Vitamin D deficiency Impaired glucose tolerance Anxiety and depression Anemia Asthma GERD (gastroesophageal reflux disease) Crohn's disease Surgical History History of tooth extraction History of surgical removal of ganglion cyst Hx of lithotripsy Hx of dilation and curettage Hx of cystoscopy History of hysteroscopy History of colonoscopy History of cholecystectomy Hx of appendectomy H/O tubal ligation History of lumpectomy of left breast S/P small bowel resection Social History Household Members: Significant Other Housing: House Alcohol intake: current Alcohol intake frequency: holidays/special occasions only Patient Tobacco Use Status: Current everyday Tobacco user Tobacco use type: Cigarette Cigarette Packs Per Day: 1 Cigarettes Per Day: 5 Years Smoked: 50 e-Cigarette/Vaping Use: Never Used Second Hand Smoke Exposure: Yes Advance Directives Date on File: 10/25/24 service: No Current occupational status: 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 Cognitive needs: No Hearing needs: No Vision needs: Yes Review of Systems Const Denies chills, Denies fatigue, Denies fever(s), Denies frequent falls, Denies weakness, Denies weight gain and Denies weight loss ENT Denies dizziness Card Denies chest pain, Denies leg edema, Denies lightheadedness, Denies palpitations, Denies dyspnea, Denies dyspnea on exertion, Denies orthopnea and Denies other (loss of consciousness) Resp Denies cough, Denies dyspnea and Denies dyspnea on exertion GI Denies hematochezia and Denies change in stool character Musc Denies abnormal gait, Denies muscle weakness, Denies numbness, Denies radiating pain into limb and Denies tingling Neuro Denies abnormal gait, Denies dizziness, Denies frequent falls, Denies numbness, Denies tingling and Denies weakness Endo Denies fatigue and Denies palpitations Physical Exam Vital Signs: Last Vital Signs Pulse 78 05/30/25 08:42 BP 122/80 05/30/25 08:42 BMI result Body Mass Index 20.9 Last Vital Signs Temp 98.9 F 10/30/24 11:59 Pulse 77 10/30/24 11:59 Resp 16 10/30/24 11:59 BP 138/63 10/30/24 11:59 Pulse Ox 99 10/30/24 11:59 O2 Del Method Room Air 10/30/24 11:59 O2 Flow Rate 1 10/30/24 07:39 Oxygen Flow Rate 2 10/26/24 17:48 BMI result Body Mass Index 23.5 Const General: cooperative, comfortable, no acute distress, alert and awake Nutritional Appearance: thin Orientation/consciousness: patient oriented x3 Limitations: no limitations HEENT Head: Yes normocephalic and Yes atraumatic Neck Neck: Yes trachea midline, Yes supple and Yes no JVD Resp Effort & Inspection: normal respiratory effort Auscultation: clear to auscultation bilaterally, crackles and diminished lung sounds Cardio Jugular venous distension: no JVD Rate: regular rate Rhythm: abnormal rhythm with ectopic beats Heart sounds: S1 normal heart sound present, S2 normal heart sound present, no click, no gallops, no murmurs and no rubs GI Auscultation: normal bowel sounds Skin General skin exam: no rashes or lesions noted Neuro General: patient oriented x3 and no focal motor deficits Extrem General: Yes no clubbing, cyanosis or edema Psych Appearance: grossly normal Affect: Anxious affect present Office Procedures EKG Details: EKGs shows normal sinus rhythm with normal EKGs with normal axis and normal intervals [id number], Complete Assessment & Plan Assessment & Plan (1) Paroxysmal atrial fibrillation: Code(s): I48.0 - Paroxysmal atrial fibrillation Category: Medical Plan: Paroxysmal atrial fibrillation this elderly woman has done well with rhythm control approach. Overall burden of atrial fibrillation is less than 1%. Therefore would continue with current medical therapy. I think if she has increasing burden of atrial fibrillation that would consider ablation. Will discuss with EP about the same. Avoidance of stimulants was discussed. Stress mitigation strategies were discussed. I think she would benefit from antianxiety treatment with sertraline to help with her overall anxiety personality. Continue full oral anticoagulation, currently on Eliquis 5 mg b.i.d.. Semi annual renal function test should be pursued. Continue aggressive blood pressure control. (2) SVT (supraventricular tachycardia): Code(s): I47.10 - Supraventricular tachycardia, unspecified Category: Medical Plan: Prior history of SVT which has overall so remained suppressed. Continue metoprolol therapy. Continue Multaq therapy. Will need EKGs every 3 months. Stress mitigation strategies to be pursued. We discussed vagal maneuvers. She understands. Will follow up in the clinic in 3 months for EKG in 6 months with me. Thank you for allowing me to partake in her care Coding Level of Care Code Est Pt Level 4 (43997) Diagnoses Paroxysmal atrial fibrillation I48.0 SVT (supraventricular tachycardia) I47.10 CPT Codes EKG - CPT: 53740-[id number], Complete ([id number])
[2025-05-30 08:42] VITALS: BP 122/80; PULSE 78; BMI 20.9
--- OUTSIDE RECORDS SUMMARY | 2025-05-30 10:05 | XMS_ITS | Patient Health Record ---
Author Organization [facility] Address [address] [place] [address] Care Team Providers Care [employer] Name Role Phone Po Tae FERRER Primary Care Provider Neymar Sanders [phone] Allergies Allergen (clinical drug ingredient) Drug/Non Drug Allergy documented on EMR Reaction Allergy Type Onset Date Status Darvon Unknown Drug Allergy Active tetracycline Tetracycline HCl Unknown Drug Allergy Active Results Component Value Reference Range Flag Notes Complete Blood Count Auto Di ff Reviewed date:06/21/2024 10:33:11 AM Interpretation: Performing Lab:[facility], [address] [place] [phone] Notes/Report: White Blood Count 4.2 4.8-10.8 X10*3/uL [...] Panel Reviewed date:06/21/2024 10:33:28 AM Interpretation: Performing Lab:[facility], [address] [place] [phone] Notes/Report: Bilirubin Total 0.4 0.0-1.0 mg/dL N Bilirubin Direct 0.1 0.0-0.5 mg/dL N Aspartate Amino Transferase 24 5-31 U/L N Alanine Aminotransferase 24 0-31 U/L N Total Protein 7.3 6.5-8.0 g/dL N Albumin Level 4.2 3.5-5.0 g/dL N Alkaline Phosphatase 87 39-117 U/L N Comprehensive Met. Panel Reviewed date:07/26/2024 06:49:01 PM Interpretation: Performing Lab:[facility], [address] [place] [phone] Notes/Report: Sodium 139 135-145 mmol/L N Potassium [...] Panel Reviewed date:07/26/2024 06:49:13 PM Interpretation: Performing Lab:[facility], [address] [place] [phone] Notes/Report: Bilirubin Direct 0.2 0.0-0.5 mg/dL N IRON PROFILE Reviewed date:07/26/2024 06:49:29 PM Interpretation: Performing Lab:[facility], [address] [place] [phone] Notes/Report: Iron 94 30-160 mcg/dL N Total Iron Binding Capacity 257 228-428 mcg/dL N Percent Iron Saturation 37 15-50 % N Unsaturated Iron Binding 163 Lipid Panel Reviewed date:07/26/2024 06:49:37 PM Interpretation: Performing Lab:[facility], [address] [place] [phone] Notes/Report: Triglycerides 72 <150 mg/dL Desirable Triglyceride: [...] Hormone Reviewed date:07/26/2024 06:49:57 PM Interpretation: Performing Lab:[facility], [address] [place] [phone] Notes/Report: Thyroid Stimulating Hormone 1.50 0.32-4.0 uIU/mL N TSH 3rd Generation ([facility] [employer]) Complete Blood Count Auto Di ff Reviewed date:09/19/2024 08:11:23 PM Interpretation: Performing Lab:[facility], [address] [place] [phone] Notes/Report: White Blood Count 4.4 4.8-10.8 X10*3/uL [...] Panel Reviewed date:09/19/2024 08:10:44 PM Interpretation: Performing Lab:[facility], [address] [place] [phone] Notes/Report: Bilirubin Total 0.5 0.0-1.0 mg/dL N Bilirubin Direct 0.2 0.0-0.5 mg/dL N Aspartate Amino Transferase 30 5-31 U/L N Alanine Aminotransferase 19 0-31 U/L N Total Protein 6.9 6.5-8.0 g/dL N Albumin Level 4.3 3.5-5.0 g/dL N Alkaline Phosphatase 82 39-117 U/L N Complete Blood Count Auto Di ff Reviewed date:10/20/2024 09:57:22 PM Interpretation: Performing Lab:[facility], [address] [place] [phone] Notes/Report: White Blood Count 5.2 4.8-10.8 X10*3/uL [...] Reviewed date:10/20/2024 09:09:23 AM Interpretation: Performing Lab:[address] [phone] Notes/Report: Bilirubin Total 0.4 0.0-1.0 mg/dL N Bilirubin Direct 0.2 0.0-0.5 mg/dL N Aspartate Amino Transferase 24 5-31 U/L N Alanine Aminotransferase 21 0-31 U/L N Total Protein 7.0 6.5-8.0 g/dL N Albumin Level 4.2 3.5-5.0 g/dL N Alkaline Phosphatase 78 39-117 U/L N Liver Panel (Not yet reviewe d by provider) Interpretation: Performing Lab:[address] [phone] Notes/Report: Bilirubin Direct 0.2 0.0-0.5 mg/dL N Complete Blood Count Auto Di ff (Not yet reviewed by provider) Interpretation: Performing Lab:[address] [phone] Notes/Report: White Blood Count 5.0 4.8-10.8 X10*3/uL N Red Blood Count 3.43 4.20-5.50 X10*6/uL L Hemoglobin 12.3 12.0-16.0 g/dl N Hematocrit 37.4 37.0-47.0 % N Mean Corpuscular Volume 109.0 80.0-98.0 fL H Mean Corpuscular Hemoglobin 35.9 27.0-33.0 pg H Mean Corpuscular HGB Conc 32.9 31.0-35.0 g/dl N Red Cell Distribution Width 14.7 11.0-16.0 % N Platelet Count 355 160-400 X10*3/uL N Mean Platelet Volume 9.6 9.4-12.3 fL N Neutrophils Percent Auto 67.8 45-73 % N Imm Gran Pct Auto 0.4 0.0-0.4 % N Lymphocytes Percent Auto 18.4 20-40 % L Monocytes Percent Auto 7.0 2-11 % N Eosinophils Percent Auto 5.0 0-4 % H Basophils Percent Auto 1.4 0-2 % N NRBC Pct Auto 0.0 0.0-0.2 /100WBC N Neutrophils Absolute Auto 3.4 2.0-8.3 x10*3/uL N Imm Gran Abs Auto 0.02 0.00-0.03 X10*3/uL N Lymphocytes Absolute Auto 0.9 1.2-4.9 X10*3/uL L Monocytes Absolute Auto 0.4 0.1-1.2 X10*3/uL N Eosinophils Absolute Auto 0.3 0.0-0.4 X10*3/uL N Basophils Absolute Auto 0.1 0.0-0.2 X10*3/uL N NRBC Abs Auto 0.000 0.0-0.012 X10*3/uL N Liver Panel (Not yet reviewe d by provider) Interpretation: Performing Lab:[address] [phone] Notes/Report: Bilirubin Total 0.4 0.0-1.0 mg/dL N Bilirubin Direct 0.2 0.0-0.5 mg/dL N Aspartate Amino Transferase 21 5-31 U/L N Alanine Aminotransferase 15 0-31 U/L N Total Protein 6.7 6.5-8.0 g/dL N Albumin Level 4.2 3.5-5.0 g/dL N Alkaline Phosphatase 104 39-117 U/L N Complete Blood Count Auto Di ff Reviewed date:07/22/2024 05:28:16 PM Interpretation: Performing Lab:[address] [phone] Notes/Report: White Blood Count 5.1 4.8-10.8 X10*3/uL [...] yet reviewe d by provider) Interpretation: Performing Lab:[facility], [address] [place] [phone] Notes/Report: Bilirubin Total 0.5 0.0-1.0 mg/dL N Bilirubin Direct 0.2 0.0-0.5 mg/dL N Aspartate Amino Transferase 27 5-31 U/L N Alanine Aminotransferase 18 0-31 U/L N Total Protein 7.0 6.5-8.0 g/dL N Albumin Level 4.4 3.5-5.0 g/dL N Alkaline Phosphatase 84 39-117 U/L N Complete Blood Count Auto Di ff (Not yet reviewed by provider) Interpretation: Performing Lab:[facility], [address] [place] [phone] Notes/Report: White Blood Count 4.8 4.8-10.8 X10*3/uL [...] 0.000 0.0-0.012 X10*3/uL N Liver Panel Reviewed date:12/25/2024 07:51:21 PM Interpretation: Performing Lab:[facility], [address] [place] [phone] Notes/Report: Bilirubin Total 0.5 0.0-1.0 mg/dL N Bilirubin Direct 0.2 0.0-0.5 mg/dL N Aspartate Amino Transferase 22 5-31 U/L N Alanine Aminotransferase 13 0-31 U/L N Total Protein 6.8 6.5-8.0 g/dL N Albumin Level 4.0 3.5-5.0 g/dL N Alkaline Phosphatase 87 39-117 U/L N Complete Blood Count Auto Di ff Reviewed date:12/25/2024 07:52:26 PM Interpretation: Performing Lab:[facility], [address] [place] [phone] Notes/Report: White Blood Count 5.3 4.8-10.8 X10*3/uL [...] 0.020 0.0-0.012 X10*3/uL H Liver Panel Reviewed date:11/21/2024 11:37:10 PM Interpretation: Performing Lab:[facility], [address] [place] [phone] Notes/Report: Bilirubin Total 0.3 0.0-1.0 mg/dL N Bilirubin Direct 0.1 0.0-0.5 mg/dL N Aspartate Amino Transferase 18 5-31 U/L N Alanine Aminotransferase 8 0-31 U/L N Total Protein 7.1 6.5-8.0 g/dL N Albumin Level 3.6 3.5-5.0 g/dL N Alkaline Phosphatase 108 39-117 U/L N Complete Blood Count Auto Di ff Reviewed date:11/21/2024 11:37:43 PM Interpretation: Performing Lab:[facility], [address] [place] [phone] Notes/Report: White Blood Count 8.7 4.8-10.8 X10*3/uL [...] Panel Reviewed date:01/23/2025 11:00:07 PM Interpretation: Performing Lab:[facility], [address] [place] [phone] Notes/Report: Bilirubin Total 0.4 0.0-1.0 mg/dL N Bilirubin Direct 0.2 0.0-0.5 mg/dL N Aspartate Amino Transferase 25 5-31 U/L N Alanine Aminotransferase 15 0-31 U/L N Total Protein 6.7 6.5-8.0 g/dL N Albumin Level 4.0 3.5-5.0 g/dL N Alkaline Phosphatase 94 39-117 U/L N Complete Blood Count Auto Di ff Reviewed date:01/23/2025 11:02:15 PM Interpretation: Performing Lab:[facility], [address] [place] [phone] Notes/Report: White Blood Count 4.5 4.8-10.8 X10*3/uL [...] NRBC Abs Auto 0.000 0.0-0.012 X10*3/uL N Reason For Referral No Information Medications [...] Status Risk Notes Problem Colon cancer screening (834806464) Colon cancer screening (Z12.11) Active confirmed Problem Gastro-esophageal reflux disease without esophagitis (695689991) Gastro-esophageal reflux disease without esophagitis (K21.9) Active confirmed Problem Screening for malignant neoplasm of colon (173534829) Encounter for screening for malignant neoplasm of colon (Z12.11) Active confirmed Problem History of adenomatous polyp of colon (954780619) History of adenomatous polyp of colon (Z86.010) Active confirmed Problem Weight loss (951054663) Weight loss (R63.4) Active confirmed Problem Crohn's disease of small AND large intestines (31374854) Crohn's disease of both small and large intestine without complication (K50.80) Active confirmed Problem Crohn's disease of small AND large intestines (41721969) Crohn's disease of both small and large intestine without complications (K50.80) Active confirmed Problem Diverticular disease of colon (784832065) Diverticulosis of large intestine without perforation or abscess without bleeding (K57.30) Active confirmed Problem Irritable bowel syndrome with diarrhea (777780862) Irritable bowel syndrome with diarrhea (K58.0) Active confirmed Problem Melena (0339548) Melena (K92.1) Active confirme d Problem Therapeutic drug monitoring, quantitative (regime/therapy) (85898020) Encounter for therapeutic drug level monitoring (Z51.81) Active confirmed Problem History of gastrointestinal tract bypass (950566022) Intestinal bypass and anastomosis status (Z98.0) Active confirmed Problem Crohn's disease of small AND large intestines (34209870) Crohns disease of both small and large intestine without complication (K50.80) Active confirmed Problem History of polyp of colon (situation) (377728373) History of colon polyps (Z86.010) Active confirmed Problem Gallstones (981213073) Gallstones (K80.20) Active confirmed Problem Gastroesophageal reflux disease (029434877) GERD (gastroesophageal reflux disease) (K21.9) Active confirmed Problem Generalized abdominal pain (316016784) Abdominal pain, generalized (R10.84) Active confirmed Problem Diarrhea (70274046) Diarrhea, unspecified type (R19.7) Active confirmed Problem Drug monitoring done (736427822) Therapeutic drug monitoring (Z51.81) Active confirmed Problem Crohn's disease of small AND large intestines (57860865) Crohn''s disease of both small and large intestine without complication (K50.80) Active confirmed Problem 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 Vital Signs Temperature 96 degrees Fahrenheit 04/11/2025 Blood pressure diastolic 01 mm Hg 04/11/2025 Height 65 in 04/11/2025 Blood pressure systolic 001 mm Hg 04/11/2025 Weight 123.2 lbs 04/11/2025 BMI 20.5 kg/m2 04/11/2025 Encounters Encounter Location Date Provider Diagnosis [facility] [address] [place] [phone] 09/27/2024 Neymar Sauer Crohns disease of elkin th small and large intestine without complication K50.80 ; Gastro-esophageal reflux disease without esophagitis K21.9 ; History of adenomatous polyp of colon Z86.010 ; Diarrhea, unspecified type R19.7 and Bile salt-induced diarrhea K90.89 [facility] [address] [place] [phone] 04/11/2025 Neymar Sauer Crohns disease of elkin th small and large intestine without complication K50.80 ; Gastro-esophageal reflux disease without esophagitis K21.9 ; History of adenomatous polyp of colon Z86.010 and Colon cancer screening Z12.11 [facility] [address] [place] [phone] 10/28/2024 Neymar Sauer [facility] [address] [place] [phone] 01/09/2025 Neymar Sauer [facility] [address] [place] [phone] 01/11/2025 Neymar Sauer [facility] [address] [place] [phone] 03/10/2025 Neymar Sauer Assessments Encounter Date Diagnosis [...] PCR 02/28/2021 Complete Blood Count Auto Diff 5 Complete Blood Count Auto Diff 5 Liver Panel 05/19/2025 Liver Panel 02/20/2025 Liver Panel 04/21/2025 Calprotectin, Fecal 09/17/2023 GI PANEL 09/17/2023 Future Test Test Name Order Date COLONOSCOPY 02/02/2013 COLONOSCOPY 06/02/2018 UPPER GI ENDOSCOPY 02/21/2020 UPPER GI ENDOSCOPY 09/17/2023 COLONOSCOPY 09/17/2023 Next Appt Details Provider Name:Neymar Sauer , 10/10/2025 09:50:00 AM, [address] [place] [address], [address], [place], [address], Insurance Providers Payer Name Payer Address Payer Phone Subscriber Number Group Number Insured Name Patient Relationship to Insured Coverage Start Date Coverage End Date MEDICARE OF [place] [address] [place] [address] [id number] SEPIDEH VIVIAN Self - patient is the insured 9 [employer] CLAIMS [address] [place] [address] [id number] SEPIDEH VIVIAN Self - patient is [...] the area of the femoral neck Denies ND,DM,CVA,Lung disease,renal dise ase Anxiety GERD- EGD in [...] November 2012 Removed basal call carcinoma from [facility] Dec 2012 Lap [facility]-Dr. Leahy 04/17/2015 Squamous cell cancer on scalp and forehe ad 2017 She is scheduled for a hyste roscopy and D&C with Dr. Carcamo for 03/14/2022 D&C polyp in uterus benign 2021 Ganglion cyst on wrist removed 12/2022 Hospitalization History Reason Date(Month/Year) Sepsis from kidney stone, Stent put in
== END 2025-05-30 09:04 | disposition home or self-care (01) ==
PROVIDERS: PCP Internal Medicine; Visit Provider Internal Medicine Cardiovascular Disease
DX: I48.0 Paroxysmal atrial fibrillation (principal); I47.10 Supraventricular tachycardia, unspecified
CPT/HCPCS: 93010; 99214

== ENCOUNTER → 2025-05-30 08:27 | Outpatient (BNVA) | payer MEDICARE, SELFPAY | PROVIDERS: PCP Internal Medicine; Visit Provider Internal Medicine Cardiovascular Disease | DX: I48.0 Paroxysmal atrial fibrillation (principal); I47.10 Supraventricular tachycardia, unspecified; F41.8 Other specified anxiety disorders | CPT/HCPCS: 93005; 99212 ==